=== PATIENT | female | born 1985 | race Caucasian/White ===

== ENCOUNTER → 2017-10-09 12:51 | Outpatient (CLI) | payer OTHER, SELFPAY ==
[2017-10-09 13:49] LABS: Absolute Lymphocyte Count 2.58 X10^3/ul (0.83-4.51); Absolute Neutrophil Count 5.7 X10^3/uL (2.0-7.7); Basophil# 0.07 X10^3/uL; Basophil% 0.8 % (0-1); Eosinophil# 0.26 X10^3/uL; Eosinophils% 2.8 % (0-5); Hematocrit 37.9 % (37-47); Lymphocyte # 2.58 X10^3/ul (4.0); Lymphocyte % 27.9 % (19-41); Mean Corp Hgb Conc 34.3 g/gl (32-36); Mean Corpuscular Hgb 30.7 pg (27.0-32.0); Mean Corpuscular Volume 89.6 fL (81-99); Mean Platelet Vol. 10.9 fl (6.2-12.0); Monocyte# 0.64 X10^3/uL; Monocyte% 6.9 % (0-10); Neutrophil # 5.67 X10^3/uL (2.7-7.7); Neutrophil % 61.2 % (47-70); Platelet Count 243 K/mm3 (150-450); RBC Distribution Width CV 12.8 % (11.6-14.6); RBC Distribution Width SD 41.2 fl (35.1-43.9); Red Blood Count 4.23 M/mm3 (4.2-5.4); White Blood Count 9.3 K/mm3 (4.4-11.0)
[2017-10-09 13:53] LABS: POSITIVE COUNT NO; POSITIVE DIFFERENTIAL NO; POSITIVE MORPHOLOGY NO
[2017-10-09 14:11] LABS: Hemoglobin A1c 7.9 % (4.2-6.3)
[2017-10-09 14:23] LABS: ALB/GLOB Ratio 0.7 RATIO (0.9-2.4); AST(SGOT) 21 U/L (15-37); Alanine Aminotransfer ALT/SGPT 35 U/L (12-78); Albumin, Serum 3.4 g/dL (3.4-5.0); Alkaline Phosphatase 51 U/L (45-117); Anion Gap 8 (5-15); BUN 13 mg/dL (7-18); BUN/Creat Ratio 14.1 RATIO (10-20); Calcium,Total 8.6 mg/dL (8.5-10.1); Chloride 100 mmol/L (98-107); Cholesterol 151 mg/dL (200); Creatinine, Serum 0.92 mg/dL (0.55-1.02); EST Glomerular Filtration Rate 74 mL/min (>60); Est Glom Filt Rate - Afr Amer 90 mL/min (>60); Free T3 2.2 pg/mL (2.18-3.98); Globulin 4.6 g/dL (2.2-4.2); Glucose 255 mg/dL (70-110); High Density Lipoprotein 31 mg/dL; Potassium 4.4 mmol/L (3.5-5.1); Sodium Level 134 mmol/L (136-145); T4 Free Direct 0.99 ng/dL (0.76-1.46); Thyroid Stim Hormone (TSH) 3.03 uIU/mL (0.358-3.74); Triglycerides 405 mg/dL
== END ==
PROVIDERS: Family Provider Internal Medicine; PCP Internal Medicine; Visit Provider Internal Medicine
DX: E11.65 Type 2 diabetes mellitus with hyperglycemia (principal); E03.9 Hypothyroidism, unspecified
CPT/HCPCS: 36415; 80053; 80061; 83036; 84439; 84443; 84481; 85025

== ENCOUNTER 2018-05-09 21:35 | Emergency (ER) | payer OTHER, SELFPAY ==
[2018-05-09 21:36] VITALS: BP 172/76; PULSE 88; RESP 15; TEMP 36.8; O2SAT 99; BMI 35.4
[2018-05-09 21:41] VITALS: BP 172/76; PULSE 82; RESP 18; O2SAT 97
--- NOTE | 2018-05-09 21:45 | ED.VISSUMM ---
- ER Visit Summary Date of Service: 05/09/18 Chief Complaint: Chest pain History of Present Illness: The patient is a 32 F waxing waning chest pain since yesterday evening. Pain left side moved to the right. Noted pain bilaterally. Dyspnea. No nausea or vomiting. History of diabetes, hypertension, hypercholesterolemia. No tobacco history. History of bicuspid valve, along with thoracic aneurysm, this was repaired in 2006. Additional valve repair in 2012. She just takes aspirin. No history of stress test or heart cath in the past. No similar symptoms. No recent travel, surgeries, or immobilizations. No history of PE or DVT. States pain currently resolved. Take baby aspirin today. Physical Examination: General: Alert and oriented ?3, no acute distress HEENT: Normocephalic, atraumatic. Moist mucosa membranes Neck: supple, nontender. Cardiovascular: Regular rate and rhythm, no murmurs. Midline chest scar Respiratory: Normal breath sounds, symmetric, no distress Abdomen: Soft, nontender, nondistended Extremities: Nontender, no edema, pulses intact ?4 Neuro: no focal neurological deficits. Test Results: EKG: Sinus rate of 82, nonspecific ST depression in 1 and aVL, T-wave inversion in aVL. Troponin negative. Baseline labs negative. Chest x-ray negative. Emergency Department Course and Treatment: Patient treated with aspirin. EKG noted nonspecific ST depression, extreme lateral leads, less than 0.5 mm. Symptom-free on my evaluation. Workup negative troponin. Reevaluation complains of pain when she moves her arm right lateral sternal region. She states she was lifting her child 2 days prior before symptoms. Pain with palpation. This is reproducible. Discussed with patient does have risk factors, heart scores a 2. FAREED is a 1. However has a negative troponin with over 24 hours of symptoms. Discussed with patient less likely cardiac in nature. With exam concerns for costochondritis. Patient no contraindications to NSAIDs. Discussed continuing this and monitoring symptoms. Discussed with patient signs and symptoms to return. Patient understands and agrees with plan. Treatment Plan: [] Disposition: Discharge Impression: Acute costochondritis This note was generated with Familinkation software. It may contain incorrect words, spelling, and punctuation that were not noted in review of the chart prior to signing ED Disposition - Plan for ED Patient: Disposition: Home or Assisted Living Chief Complaint: Chest Pain Diagnosis: Costochondritis Instructions: ED Chest Pain Costochondritis Referrals: Ilda Lozoya DO [Primary Care Provider] - 3-5 Days
[2018-05-09 21:52] VITALS: O2SAT 95
[2018-05-09] MEDS: Aspirin 81 MG TAB.CHEW 162 MG PO (21:53)
[2018-05-09 21:58] LABS: Absolute Lymphocyte Count 2.41 X10^3/ul (0.83-4.51); Absolute Neutrophil Count 5.2 X10^3/uL (2.0-7.7); Basophil# 0.02 X10^3/uL; Basophil% 0.2 % (0-1); Eosinophil# 0.25 X10^3/uL; Hematocrit 39.5 % (37-47); Hemoglobin 13.7 g/dl (12.0-15.0); Lymphocyte # 2.41 X10^3/ul (4.0); Lymphocyte % 28.5 % (19-41); Mean Corp Hgb Conc 34.7 g/gl (32-36); Mean Corpuscular Hgb 31.8 pg (27.0-32.0); Mean Corpuscular Volume 91.6 fL (81-99); Mean Platelet Vol. 11.5 fl (6.2-12.0); Monocyte# 0.58 X10^3/uL; Monocyte% 6.9 % (0-10); Neutrophil # 5.16 X10^3/uL (2.7-7.7); Platelet Count 233 K/mm3 (150-450); RBC Distribution Width CV 12.6 % (11.6-14.6); RBC Distribution Width SD 41.9 fl (35.1-43.9); Red Blood Count 4.31 M/mm3 (4.2-5.4); White Blood Count 8.5 K/mm3 (4.4-11.0)
[2018-05-09 21:59] LABS: POSITIVE COUNT NO; POSITIVE DIFFERENTIAL NO; POSITIVE MORPHOLOGY NO
[2018-05-09 22:07] LABS: Anion Gap 13 (5-15); BUN 15 mg/dL (7-18); BUN/Creat Ratio 14.3 RATIO (10-20); Calcium,Total 9.4 mg/dL (8.5-10.1); Chloride 96 mmol/L (98-107); Creatinine, Serum 1.05 mg/dL (0.55-1.02); EST Glomerular Filtration Rate 64 mL/min (>60); Est Glom Filt Rate - Afr Amer 77 mL/min (>60); Estimated Creatinine Clearance 74.11 ml/min; Glucose 441 mg/dL (74-106); Potassium 4.2 mmol/L (3.5-5.1); Sodium Level 136 mmol/L (136-145)
[2018-05-09 22:40] VITALS: BP 134/88; PULSE 75; RESP 18; O2SAT 97
[2018-05-09 22:45] VITALS: BP 134/88; PULSE 87; RESP 16; O2SAT 98
== END 2018-05-09 22:46 | disposition home or self-care (01) ==
PROVIDERS: Emergency Provider Emergency Medicine; Family Provider Internal Medicine; PCP Internal Medicine
DX: M94.0 Chondrocostal junction syndrome [Tietze] (principal); E11.9 Type 2 diabetes mellitus without complications; I10 Essential (primary) hypertension; E78.00 Pure hypercholesterolemia, unspecified; Q23.1 Congenital insufficiency of aortic valve; Z79.84 Long term (current) use of oral hypoglycemic drugs; Z79.82 Long term (current) use of aspirin; Z79.899 Other long term (current) drug therapy
CPT/HCPCS: 71045; 80048; 84484; 85025; 93005; 99284; A4216

== ENCOUNTER 2018-05-20 08:30 | Outpatient (RCR) | payer OTHER, SELFPAY ==
--- NOTE | 2018-05-20 09:16 | HP.PTEVAL ---
Patient's Visit Information LISA GUTIERREZ is a 32 year old F referred to Physical Therapy by Ilda Lozoya with a diagnosis of L pec strain. Date of Evaluation: 05/20/18 Physical Therapist: Salvador Alexander, PT, - Visit Plan Frequency: 1x/Week Duration: 1 Week Plan: Refer pt to Dr. Maciel, Chiropractor, for evaluation. Discharge at this time - Subjective Subjective: Pt reports she has had anterior chest wall pain intermittently since december. 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 Pt reports the pain would come and go, but for the past 2 weeks her pain is 90% worse than ever before. Pt reports moving her arm in different directions can provoke bad pain. Pt reports open heart surgery 2013 for the second time secondary to bad valves. Pt reports she feels a knob on her L chest wall that is very sore. No difficulty with breathing secondary to pain. Diff with house duties secondary to pain, and Pt has not worked for the past 2 weeks. Pt is going to try to RTW Friday. No sleep diff secondary to pain. 1/10 pain at rest, 5/10 at worst - Pain L anterior chest wall Pain Intensity (Out of 10): 1 Pain Intensity Range: 5 - Objective Neuro: B UE sensation is WNL to light touch. B bicepital relfex= 2/3. Palpation: Sig lump surrounding sternum near T5 rib, most likely a rib out of place. MMT: B UE's are 5/5 throughout. Special testing: Pos sternal compression near T5 - Goals Goal 1:: N/A - Rehabilitation Potential Physical Therapy Diagnosis: Pt has L anterior chest wall pain most likely due to having a rib out of place Rehabilitation Potential: Good - Anticipated Interventions Patient/Client Instruction: Educate patient on: Condition, Plan of Care For the Purpose of:: To improve self management Thank you for the opportunity to evaluate your patient. For Medicare and Medicare HMO plans, please review the plan of care and approve it. It will need to be FAXED BACK to us at [phone] for Medicare purposes. Please let me know if there are questions or concerns regarding this plan of care. Physician Signature: Date:
== END 2018-05-20 19:00 | disposition home or self-care (01) ==
LOC: PT 08:30
PROVIDERS: Family Provider Internal Medicine; PCP Internal Medicine; Referring Provider Internal Medicine; Visit Provider Internal Medicine
DX: S29.011D Strain of muscle and tendon of front wall of thorax, subsequent encounter (principal); R07.89 Other chest pain
CPT/HCPCS: 97161

== ENCOUNTER → 2018-05-27 12:41 | Outpatient (CLI) | payer OTHER, SELFPAY ==
[2018-05-27 15:50] LABS: Hemoglobin A1c 9.3 % (4.2-6.3)
== END ==
PROVIDERS: Family Provider Internal Medicine; PCP Internal Medicine; Visit Provider Internal Medicine
DX: E11.65 Type 2 diabetes mellitus with hyperglycemia (principal); E78.00 Pure hypercholesterolemia, unspecified
CPT/HCPCS: 36415; 83036

== ENCOUNTER → 2018-10-02 12:54 | Outpatient (CLI) | payer OTHER, SELFPAY ==
[2018-09-23 13:58] VITALS: BMI 30.2
--- NOTE | 2018-10-02 12:56 | US_ITS ---
STUDY: THYROID ULTRASOUND REASON FOR EXAM: Female, 32 years old. Thyroid nodule follow-up TECHNIQUE: Ultrasound evaluation of the thyroid was performed with real-time and static petit-scale imaging. COMPARISON: June 25, 2017 FINDINGS: RIGHT LOBE: The right lobe of the thyroid gland measures 4.0 x 1.4 x 1.6 cm. There is a heterogeneous echotexture. There are no demonstrated solid, cystic or complex lesions. LEFT LOBE: The left lobe of the thyroid gland measures 4.2 x 1.6 x 1.9 cm. There is an stable solid appearing upper pole nodule measuring 1.2 x 1.0 x 1.5 cm. There is a stable solid-appearing lower pole nodule measuring 3.0 x 3.0 x 4.0 mm. ISTHMUS: The isthmus measures 4 mm . The regional lymph nodes are normal. US/Thyroid IMPRESSION: Stable thyroid glands. Inhomogeneity. Stable solid appearing nodules left thyroid. Electronically Signed: Theresa Wright MD at 15:13 EST Tel , Service support ,
--- OUTSIDE RECORDS SUMMARY | 2018-12-07 02:52 | XMS RPT_ITS | Continuity of Care Document ---
:1985 Author Organization [facility] Address [facility] [address] Phone Care Team Providers Name Role Phone Ilda Lozoya DO Unavailable Jessica CHEN, Izaiah Yeager Unavailable Arvin Burgess Unavailable Tammi Machado Unavailable Mookie El OD Unavailable [facility], [facility] Unavailable Sangeeta CHEN, Jasen Arguello Unavailable VERO Maradiaga Unavailable Unavailable Unavailable Unavailable Problems Name Dates Details Annual physical exam (Z00.00, V70.0) Status: Active 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 Bolton at [facility] but follow with Dr. Arvin Burgess at [facility] Status: Active BMI 33.0-33.9,adult (Z68.33, V85.33) Status: Active BMI 34.0-34.9,adult (Z68.34, V85.34) Status: Active BMI 34.0-34.9,adult (Z68.34, V85.34) Status: Active Body mass index 35.0-35.9, adult (Z68.35, V85.35) Status: Active Chest wall pain (R07.89, 786.52) Status: Active Costochondritis (M94.0, 733.6) Comments: nsaid prn -- Status: Active Deliveries (Parity) Comments: Term, 3 Status: Active Diabetes mellitus type 2, uncontrolled (Renamed from Uncontrolled type 2 diabetes mellitus) (E11.65, 250.02) Comments: pt will tighten up diet and exervise and wt loss -- resume victoza ( she was off of it for awhile ) and see how next [facility] is Status: Active Diabetes mellitus type II, controlled, with no complications (E11.9, 250.00) Comments: will check labs to assure not NICK think with PCOS and glucose intolerant. not tolerate glucophage. on victoza. hga1c good FBS up some weight not loosign willincrease doseislet cell antibody negative . Status: Active Elevated serum globulin level (R77.1, 790.99) Status: Active Encounter for pre-employment examination (Z02.1, V70.5) Comments: filled out form Status: Active Eye exam, routine (Z01.00, V72.0) Status: Active Goiter (E04.9, 240.9) Status: Active Hypercholesteremia (E78.00, 272.0) Comments: pt wsnt fasting adn doing diet and exefcise chg so will roxane before nezxt visit Status: Active Hypothyroidism (E03.9, 244.9) Status: Active Muscle strain of chest wall, initial encounter (S29.011A, 848.8) Status: Active Nonsmoker (Z78.9, V49.89) Status: Active Nutritional counseling (Z71.3, V65.3) Status: Active Obesity, unspecified (E66.9, 278.00) Comments: start victoza help increase. talk about about clean eating. 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 Physical exam (Z00.00, V70.9) Status: Active Physical exam (Z00.00, V70.9) Status: Active Pneumococcal vaccination given (Z23, V06.6) Status: Active Polycystic ovaries (E28.2, 256.4) Status: Active Pregnancies () Comments: 3 Status: Active Rib pain on left side (R07.81, 786.50) Status: Active Serous conjunctivitis, unspecified laterality (H10.239, 372.01) Status: Active Thyroid nodule (E04.1, 241.0) Comments: stopped victoza but now pt wanting to go bak on -- no family h/o meduallary or any thyriod cancers and her bx was neg bx jun 2017 and neg by jluis so do yearly us Status: Active Upper respiratory infection (J06.9, 465.9) Status: Active Yeast vaginitis (B37.3, 112.1) Status: Active Medications Name Dates Details ASPIRIN LOW DOSE, 81MG (Oral Tablet) 1 QD for 0 days Refills: 0 Ordered:05-Jun-2009 Helio Butt Glimepiride 4 MG Oral Tablet 1 (one) Tablet bid for 0 days Quantity: 60 {Tablet} Refills: 1 Ordered:05-Jun-2018 Silvestre Lozoya DO, DO, Kathleen Start : 05-Jun-2018 Active Hygroton 25 MG Oral Tablet daily (25 MG) Active Comments:Dr. Burgess rx-- generic JARDIANCE, 25 (3)MG (Oral Tablet) (Free Text) 1 (one) Tablet Tablet qd for 0 days Quantity: 30 {Tablet} Refills: 3 Ordered:29-May-2018 Cheyanne Maradiaga LPN Start : 29-May-2018 Active Meloxicam 15 MG Oral Tablet 1 (one) Tablet Tablet qam with food for 0 days Quantity: 30 {Tablet} Refills: 0 Ordered:14-May-2018 Cheyanne Maradiaga LPN Start : 14-May-2018 Active MetFORMIN HCl ER (OSM) 500 MG Oral Tablet Extended Release 24 Hour 2 (two) Tablet qd for 0 days Quantity: 180 {Tablet} Refills: 3 Ordered:14-Aug-2018 Silvestre Lozoya DO, DO, Kathleen Start : 14-Aug-2018 Active Comments:severe diarrhea na dpassing whole tabs in toliet-- will redcue to one tab and see if tolerate that OneTouch Ultra Blue In Vitro Strip 1 (one) Strip Strip tid for 30 days Quantity: 90 {Strip} Refills: 3 Ordered:14-May-2018 Cheyanne Maradiaga LPN Start : 14-Jan-2018 Active OneTouch UltraSoft Lancets Miscellaneous 1 (one) Misc Misc tid for 30 days Quantity: 90 {QS} Refills: 1 Ordered:14-May-2018 Cheyanne Maradiaga LPN Start : 14-Jan-2018 Active Pen [place] 5/16 31G X 8 MM Miscellaneous 1 (one) Misc Misc weekly for 90 days Quantity: 12 {QS} Refills: 3 Ordered:14-May-2018 Silvestre Lozoya DO, DO, Kathleen Start : 14-Jan-2018 Active Synthroid 100 MCG Oral Tablet 1 Tablet daily for 0 days Quantity: 90 {Tablet} Refills: 3 Ordered:14-Aug-2018 Silvestre Lozoya DO, DO, Kathleen Start : 14-Aug-2018 Active Toprol XL 100 MG Oral Tablet Extended Release 24 Hour 1 Tablet qd for 30 days Refills: 0 Ordered:10-Oct-2017 Silvestre Lozoya DO, DO, Kathleen Start : 10-Oct-2017 Active Victoza 18 MG/3ML Subcutaneous Solution Pen-injector 1.8 Soln Pen-inj SC qd for 0 days Quantity: 3 {Each} Refills: 3 Ordered:14-Aug-2018 Silvestre Lozoya DO, DO, Kathleen Start : 14-Aug-2018 Active Comments:with needleshave thyriod nodule that will get bx -- patholgy was negatrive ACIPHEX, 20MG (Oral Tablet Delayed Release) 1 (one) Tablet DR Daily for 0 days Quantity: 20 {Tablet_DR} Refills: 0 Ordered:13-Apr-2007 JEFFREY Butt Start : 13-Apr-2007 End : 05-Jun-2009 Inactive ATENOLOL, 25MG (Oral Tablet) 1/2 Daily for 0 days Refills: 0 Ordered:05-Jun-2009 JEFFREY Butt End : 05-Jun-2009 Inactive BIAXIN XL PAC, 500MG (Oral Tablet Extended Release 24 Hour) 2 (two) Tablet ER 24HR daily for 10 days Quantity: 20 {Tablet} Refills: 0 Ordered:10-Aug-2014 Aundrea Tanner CNP Start : 10-Aug-2014 End : 20-Aug-2014 Inactive CLINDAMYCIN HCL, 300MG (Oral Capsule) 2 (two) Capsule as needed 30 minutes before dental procedures for 0 days Quantity: 12 {Capsule} Refills: 0 Ordered:18-May-2013 Eva Drake Start : 14-May-2013 End : 18-May-2013 Inactive Comments:Medication taken as needed. Diflucan 150 MG Oral Tablet 1 (one) Tablet Tablet x1 repeat 4days for 0 days Quantity: 2 {Tablet} Refills: 1 Ordered:29-May-2018 Cheyanne Maradiaga LPN Start : 14-May-2018 End : 29-May-2018 Inactive FLUCONAZOLE, 150MG (Oral Tablet) uad Tablet one today and may repeat in 2 days if not gone for 0 days Quantity: 2 {Tablet} Refills: 0 Ordered:30-Mar-2015 JEFFREY Butt Start : 25-Aug-2014 End : 30-Mar-2015 Inactive GLUCOPHAGE XR, 500MG (Oral Tablet Extended Release 24 Hour) 1 (one) Tablet ER 24HR Tablet ER 24HR 2 daily for 0 days Quantity: 60 {Tablet} Refills: 6 Ordered:30-Mar-2015 Hortencia Suarez MD Start : 30-Mar-2015 End : 30-Mar-2015 Inactive Comments:diarrhea GLUCOPHAGE, 1000MG (Oral Tablet) 1 (one) Tablet QD for 90 days Refills: 3 Ordered:27-May-2014 JEFFREY Butt Start : 19-Oct-2012 End : 27-May-2014 Inactive LABETALOL HCL, 200MG (Oral Tablet) uad 1 in am 1/2 at HS for 0 days Refills: 0 Ordered:27-May-2014 JEFFREY Butt End : 27-May-2014 Inactive LEVSIN, 0.125MG (Oral Tablet) 1 (one) Tablet QID for 0 days Quantity: 10 {Tablet} Refills: 0 Ordered:13-Apr-2007 JEFFREY Butt Start : 13-Apr-2007 End : 05-Jun-2009 Inactive MEDROL (KIT), 4MG (Oral Tablet) 1 Tablet TAD for 0 days Refills: 0 Ordered:18-Dec-2011 Aylin Mcmanus LPN Start : 11-Dec-2011 End : 18-Dec-2011 Inactive Comments:Take 28mg to 4mg over 7 days METROCREAM, 0.75% (External Cream) 1 Cream bid for 0 days Quantity: 1 {Cream} Refills: 0 Ordered:10-Dec-2011 Aylin Mcmanus LPN Start : 21-Nov-2011 End : 10-Dec-2011 Inactive MYCELEX, 10MG (Mouth/Throat Rajani) 1 Rajani 5x daily for 10 days Quantity: 50 {Rajani} Refills: 0 Ordered:10-Dec-2011 Aylin Mcmanus LPN Start : 10-Dec-2011 End : 20-Dec-2011 Inactive NEXIUM, 40MG (Oral Capsule Delayed Release) 1 tab QD for 0 days Refills: 0 Ordered:05-Jun-2009 JEFRFEY Butt End : 05-Jun-2009 Inactive NuvaRing 0.12-0.015 MG/24HR Vaginal Ring 1 (one) Ring uad for 30 days Refills: 0 Ordered:20-Jun-2016 Cheyanne Maradiaga LPN Start : 03-Jun-2016 End : 20-Jun-2016 Inactive Ocuflox 0.3 % Ophthalmic Solution 1 (one) Solution Solution 1-2 gtts q 2-4 hr x 2 days then 1-2 gtt qid x5 for 0 days Quantity: 1 {Bottle} Refills: 0 Ordered:20-Jun-2016 Cheyanne Maradiaga LPN Start : 12-Sep-2015 End : 20-Jun-2016 Inactive PREDNISONE, 10MG (Oral Tablet) 1 (one) Tablet 2bid x 3 days, 1 bid x 3 days 1/2 bid x3 days for 0 days Quantity: 21 {Tablet} Refills: 0 Ordered:30-Mar-2015 JEFFREY Butt Start : 10-Aug-2014 End : 30-Mar-2015 Inactive Comments:with food PROAIR HFA, 108 (90 Base)MCG/ACT (Inhalation Aerosol Solution) 2 (two) Aerosol Soln tid for 0 days Quantity: 1 {Inhaler} Refills: 2 Ordered:30-Mar-2015 JEFFREY Butt Start : 10-Aug-2014 End : 30-Mar-2015 Inactive PROMETRIUM, 100MG (Oral Capsule) 1 Capsule daily for 10 day for 0 days Quantity: 10 {Capsule} Refills: 0 Ordered:10-Dec-2011 Aylin Mcmanus LPN Start : 25-Jul-2011 End : 10-Dec-2011 Inactive TESSALON PERLES, 100MG (Oral Capsule) 1 (one) Capsule tid for 0 days Quantity: 30 {Capsule} Refills: 0 Ordered:30-Mar-2015 JEFFREY Butt Start : 03-Aug-2014 End : 30-Mar-2015 Inactive TOPICORT LP, 0.05% (External Cream) 1 Cream bid for 0 days Quantity: 1 {Cream} Refills: 0 Ordered:21-Nov-2011 JEFFREY Butt Start : 26-Sep-2011 End : 21-Nov-2011 Inactive ZITHROMAX Z-KIT, 250MG (Oral Tablet) 1 Tablet TAD for 0 days Quantity: 1 {Package} Refills: 0 Ordered:26-Sep-2015 JEFFREY Butt Start : 12-Sep-2015 End : 26-Sep-2015 Inactive AMOXIL, 875MG (Oral Tablet) 1 (one) Tablet Twice daily for 0 days Quantity: 20 {Tablet} Refills: 0 Ordered:01-Mar-2010 Aylin Mcmanus LPN Start : 06-Feb-2010 End : 14-May-2013 Discontinued Comments:This order discontinued per [facility]. AUGMENTIN, 875-125MG (Oral Tablet) 1 Tablet BID for 0 days Quantity: 20 {Tablet} Refills: 0 Ordered:19-Sep-2006 Michelle Rick Start : 19-Sep-2006 End : 13-Apr-2007 Discontinued CHERATUSSIN AC, 100-10MG/5ML (Oral Solution) 1 (one) Teaspoon qhs prn for 0 days Quantity: 6 {Ounce} Refills: 0 Ordered:10-Aug-2014 Aylin Mcmanus LPN Start : 03-Aug-2014 End : 10-Aug-2014 Discontinued COLACE, 100MG (Oral Capsule) 1 QD PRN for 0 days Refills: 0 Ordered:13-Apr-2007 Michelle Rick End : 13-Apr-2007 Discontinued Januvia 100 MG Oral Tablet 1 (one) Tablet qd for 0 days Quantity: 30 {Tablet} Refills: 3 Ordered:29-May-2018 Silvestre Lozoya DO, DO, Kathleen Start : 29-May-2018 End : 29-May-2018 Discontinued LEVAQUIN, 500MG (Oral Tablet) 1 Tablet qd for 0 days Quantity: 10 {Tablet} Refills: 0 Ordered:07-May-2012 Lottie Morales Start : 07-May-2012 End : 07-May-2012 Discontinued LOTRISONE, 1-0.05% (External Cream) Cream BID for 0 days Quantity: 1 {Cream} Refills: 0 Ordered:04-Sep-2006 Mast JOSE GUADALUPERadha Start : 04-Sep-2006 End : 01-Dec-2006 Discontinued OMNICEF, 300MG (Oral Capsule) 1 Capsule BID for 0 days Quantity: 14 {Capsule} Refills: 0 Ordered:01-Dec-2006 Michelle Rick Start : 01-Dec-2006 End : 13-Apr-2007 Discontinued Ozempic 0.25 or 0.5 MG/DOSE Subcutaneous Solution Pen-injector tad Milligram qweek for 0 days Quantity: 1 {Box} Refills: 1 Ordered:29-May-2018 Silvestre Lozoya DO, DO, Kathleen Start : 29-May-2018 End : 29-May-2018 Discontinued Comments:0.25mg qweek for 4weeks then 0.5 mg qweek until office visit PERCOCET, 5-325MG (Oral Tablet) 1-2 TABS Tablet Q 4-6 HRS PRN for 0 days Quantity: 60 {Tablet} Refills: 0 Ordered:01-Dec-2006 Michelle Rick Start : 01-Dec-2006 End : 13-Apr-2007 Discontinued PREVACID, 30MG (Oral Capsule Delayed Release) Capsule DR for 0 days Refills: 0 Ordered:13-Jun-2006 Michelle Rick Start : 13-Jun-2006 End : 13-Apr-2007 Discontinued PRILOSEC, 20MG (Oral Capsule Delayed Release) 1 (one) Capsule DR Daily for 0 days Quantity: 30 {Capsule_DR} Refills: 3 Ordered:10-Feb-2007 Michelle Rikc Start : 10-Feb-2007 End : 13-Apr-2007 Discontinued Allergies and Adverse Reactions Name Dates Details Adhesive Tape (Allergy) Status: Active Rocephin *CEPHALOSPORINS* (Allergy) Status: Active Comments: Rash Sulfa Drugs (Allergy) Status: Active Past Medical History Name Dates Details Abdominal pain, acute, right upper quadrant (R10.11, 789.01) Comments: Gallbladder removed and pain remains the same. Atypical presentation - refer to GI for further work up - scope? CT scan? Will try Levsin and Aciphex while waiting for GI referral. Status: Resolved as of 01-Feb-2009 Abnormal blood chemistry (R79.9, 790.6) Status: Inactive as of 30-Mar-2015 Abnormal cardiac function test (R94.30, 794.30) Comments: echo, pt will see Dr. Arvin Burgess at [facility] on 12-25 will take echo Status: Inactive as of 12-Jun-2015 Acute sinusitis, unspecified (J01.90, 461.9) Status: Resolved as of 01-Feb-2009 Acute tonsillitis (J03.90, 463) Comments: left tonsil ? abcess with drainage on amoxicillin from [facility] x 3days, then on levoquin x 1 dose still symptomatic fever, CT showing no tonsilar abcess, and enlarged tonsil, and epiglottis,sent to [place] , she will get tonsilectomy in 4 weekshad rapid strep at [facility] neg put on amoxi but worsening changed to levoquin, Status: Inactive as of 07-May-2012 AMENORRHOEA, NOS (626.0) Comments: think PCOS, had in past. multiple preg tests negative. will try progesterone. to stimulate. Status: Inactive as of 30-Mar-2015 BRONCHITIS, NOT SPECIFIED ACUTE OR CHRONIC (490.) (J40, 490) Status: Inactive as of 30-Mar-2015 Candidiasis, mouth (B37.0, 112.0) Comments: observe for now Status: Inactive as of 27-May-2014 Cellulitis and abscess of other specified site (L03.818, 682.8) Comments: questioning sternal incision site- treating aggressive to prevent further complications. Cultured area that is seeping. Status: Resolved as of 01-Feb-2009 Chest pain (R07.9, 786.59) Status: Inactive as of 27-May-2014 Cholecystectomy (Gall Bladder Removal) Comments: 02/2007 Status: Inactive as of 01-Jun-2010 Constipation (K59.00, 564.00) Comments: OTC Colace and senna. If no improvement call. Status: Resolved as of 01-Feb-2009 Cough (R05, 786.2) Comments: 4days Status: Inactive as of 30-Mar-2015 CRP elevated (R79.82, 790.95) Comments: better then after tonsilits Status: Inactive as of 12-Jun-2015 Dehydration (E86.0, 276.51) Status: Inactive as of 27-May-2014 Epigastric pain (R10.13, 789.06) Comments: treat gastritis with prevacid Status: Resolved as of 01-Feb-2009 Gallstones (K80.20, 574.20) Comments: stable Status: Inactive as of 01-Jun-2010 GERD (gastroesophageal reflux disease) (K21.9, 530.81) Comments: stable Status: Inactive as of 01-Jun-2010 Glucose intolerance (no malabsorption) (E74.39, 271.3) Comments: not gone back on metformin since had baby and sugars backup raching DM range so get back on metformin. Status: Inactive as of 20-Jun-2016 Low back pain without sciatica, unspecified back pain laterality (724.2) Comments: upper really pleuritic ? pleurisy. consider PE. ? dislaced rib. willcheck stat ddimer if normal nsaids watch if not better next week check chest xray. consider pneumothorax but no sob. Status: Inactive as of 12-Jun-2015 Pharyngitis, acute (J02.9, 462) Comments: ? mono Status: Inactive as of 27-May-2014 Polycystic Ovarian Disease Status: Inactive as of 01-Jun-2010 Positive test (V72.42) Status: Inactive as of 27-May-2014 , abdominal, with intrauterine (O00.01, 633.01) Status: Inactive as of 27-May-2014 Rash (R21, 782.1) 26-Sep-2011 Comments: saw rhem no lupus. scharmbergs on braun. face acne is roceasa per derm on metrogel. not use oral atb until not going to get Status: Inactive as of 27-May-2014 Sinus drainage (J34.89, 478.19) Status: Inactive as of 30-Mar-2015 Unspecified Diagnosis Status: Inactive as of 30-Mar-2015 Vaccine for njljocbiqa-ucxovql-jqtlvlkdo with poliomyelitis (Z23, V06.3) Status: Inactive as of 27-May-2014 Wheezing (R06.2, 786.07) Status: Inactive as of 30-Mar-2015 Yeast infection (B37.9, 112.9) Status: Inactive as of 30-Mar-2015 Procedures Procedure Dates Details Tonsilectomy Completed Comments: Date: 01/2012. No post-op complications. Date Value Details 13-Jul-2018 Endocrinology Visit Report Result: Comments: See Note; NOTES: [facility] [address] [place] [address] OFFICE VISIT Date of Service: 07/09/18 MR#: [id number] Acct: [id number] Name: KIMBERLY NAPIER Rep #: [id number] : 1985 Provider: Tammi Machado NP Age/Sex: 32/F Location: [facility] [place] Status: Signed HPI History of present illness Kimberly Reis is a 32 year old female who p resents for consult of diabetes type 2. Diagnosed in 2013. Currently on jardiance, victoza and metformin which she takes as prescribed. Does not routinely monitor BG. Is overwhelmed by the diabetes and all the issues associated with it. Pt denies difficulty with injections or self monitoring of BG. Denies any signs of infection or irritation at site of injections. Reports taking insulin as directed A t time of visit: -Pt denies symptoms of hypertensive emergency (CP,SOB,GUAN, or blurred vision) and hypotension(dizziness or lightheadedness) -Pt denies symptoms of hypoglycemia ( sweaty, confusion, anxie ty, tremor, hunger, palpitations) and hyperglycemia ( polydipsia, polyuria) -Pt denies potential medication adverse effect. 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 Type: type 2 Glucose cont rol symptoms: Denies daytime hypoglycemia, hypoglycemic with activity, nocturnal hypoglycemia or confusion at night Weight and fatigue symptoms: Denies snoring Cardiopulmonary symptoms: Denies chest claude n at rest, dyspnea on exertion, lightheadedness or myalgias GI symptoms: Denies constipation, diarrhea, nausea/dyspepsia or vomiting Skin and extremity symptoms: Denies tingling/numbness/burning or poor ly healing wound Other symptoms: Denies blurry vision or change in vision Pertinent visit history: Denies recent visit to ER, recent hospital admission or recent 911 calls Self monitoring: No Diabetes e ducation in past year: No Sick day education - understands ketone testing: Yes Physical activity: regular Exam Const General: comfortable, in distress Nutritional Appearance: well nourished Orientatio n: oriented x3 HENCA Head: normal to inspection, atraumatic Ears: hearing grossly normal bilaterally Nose: external nose normal Face and sinus: normal facial exam Mouth: oral mucosae normal, moist mucou s membranes Teeth and gingiva: dentition normal Eyes General: appearance normal, both eyes and all related structures Eyelids: eyelids normal Conjunctivae: conjunctivae normal Sclera: sclerae normal Res p Effort AND Inspection: normal respiratory effort, able to speak in complete sentences, symmetric chest movement Auscultation: Bilateral: Clear to Auscultation Cardio Rate: regular rate Rhythm: regular rhythm Heart Sounds: S2 normal, S1 normal Skin General: no rashes or lesions noted Wounds: no wounds Hair: normal Neuro General: oriented x3, moves all extremities Cognition: normal cognition Speech: s peech normal Gait: normal gait Extrem General: normal to inspection, full ROM, normal capillary refill Psych Appearance: grossly normal Mental Status: mental status grossly normal Mood: congruent mood A ffect: normal affect Speech and Movement: speech and movement normal Attitude: cooperative Thought Process: normal Thought Content: normal Judgment: judgment good Intake Vital Signs07/09/18 Height 5 f t 7 in 07/09/18 Weight: 210 lb 8 oz 07/09/18 Body Mass Index (BMI) 32.9 07/09/18 Blood Pressure 130/94 H 07/09/18 Blood Pressure Location Lt popliteal 07/09/18 Blood Pressure Position Sitting Intake Vi sit Reasons: Diabetes Mellitus Type 2 Chief Complaint: Abap Developer Required: No Accompanied by: Self Allergies adhesive tape Allergy (Unknown, Verified 07/09/18 10:48) Unknown Sulfa (Sulfonamide Antib iotics) Allergy (Verified 07/06/17 01:12) Rash Medications Aspirin [Aspirin, Baby] 81 mg PO DAILY@0800 06/29/13 [History Confirmed 07/09/18] Levothyroxine [Synthroid] 100 mcg PO DAILY 06/29/13 [Histo ry Confirmed 07/09/18] Metoprolol Succinate [Toprol Xl] 100 mg PO DAILY 06/29/13 [History Confirmed 07/09/18] Ranitidine [Zantac] 150 mg PO DAILY 07/06/17 [History Confirmed 07/09/18] Chlorthalidone [Hy groton] 25 mg PO DAILY 05/09/18 [History Confirmed 07/09/18] empagliflozin 25 mg tablet 25 mg PO DAILY 07/09/18 [History Confirmed 07/09/18] liraglutide 0.6 mg/0.1 mL (18 mg/3 mL) subcutaneous pen injec tor 1.8 mg SC DAILY ml 07/09/18 [History Confirmed 07/09/18] metformin 1,000 mg tablet 1,000 mg PO DAILY 07/09/18 [History Confirmed 07/09/18] Nurse's Note: blood sugars : low : high : pt not checking PFSH Medical History Asthma (Acute) Breast lump (Acute) Chronic headaches (Acute) GERD (gastroesophageal reflux disease) (Acute) Gallstones (Acute) Goiter (Acute) H/O transfusion of whole blood (Acut e) H/O wisdom tooth extraction (Acute) Heart murmur (Acute) Hypothyroidism (Acute) Polycystic ovary (Acute) Type 2 diabetes mellitus (Acute) UTI (urinary tract infection) (Acute) Vision problem (Acute) heart catheterization (Acute) HTN (hypertension) (Chronic) Surgical History H/O aortic valve replacement (Acute) H/O aortic valvuloplasty (Acute) H/O: C- section (Acute) Hx of cholecystectomy (Acute) Hx of tonsillectomy (Acute) S/P aneurysm repair (Acute) Family History Grandmother Asthma Hypertension Grandfather Asthma Arthritis Cancer Diabetes Aunt Breast cancer Autoimmune disease Uncle Cancer M other Diabetes Thyroid disorder Father Diabetes Sister Autoimmune disease Social History Smoking Status: Never smoker second hand exposure: No alcohol intake: never substance use type: does not use ROS Const Constitutional: No anorexia, body ache, chills, fatigue, fever(s), frequent falls, decreased energy, malaise, night sweats, weakness, weight change, sleep problems, abnormal sleep pattern, c hange in appetite, other, headache(s), snoring or excessive sweating Eyes Eyes: Positive for other (08/01); no blurry vision, change in vision, double vision, discharge, dry eyes, bulging eyes, floaters , visual disturbances, eye pain, light sensitivity, spots in vision or tunnel vision ENT ENT: Positive for nasal congestion; no abnormal hearing, ear pain, ear discharge, ear pressure, hearing loss, tin nitus, dizziness/vertigo, balance problems, nosebleed/epistaxis, nasal obstruction, nose pain, sinus pressure, sinus pain, nasal discharge, post nasal drip, headache(s), facial pain, dental pain, dry mo uth, bad breath, hoarseness, lip swelling, mouth lesions, mouth pain, sore throat, tongue swelling, throat swelling, other, difficulty swallowing or neck pain Resp Respiratory: No cough, change in phleg m color, chest congestion, excessive phlegm production, hemoptysis, pain on inspiration, shortness of breath, pain with cough, snoring, stridor, wheezing or other Cardio Cardiology: No chest pain at res t, chest pain with exertion, leg pain with exertion, excessive sweating, shortness of breath, dyspnea on exertion, generalized swelling, irregular heart rhythm, lightheadedness, orthopnea, radiating jaw , neck or arm pain, fast heart rate, slow heart rate, palpitations or other Gastro GI: No abdominal pain, belching, bloating, change in bowel habits, change in stool character, coffee ground emesis, con stipation, cramping, diarrhea, heartburn, difficulty swallowing, feeling full early, excessive flatus, incontinent of stools, Vomiting blood/hematemesis, blood in stool, loose stools, Black,tarry stools , nausea/dyspepsia, pain with swallowing, vomiting or other Genitourinary-Female: No difficulty urinating, burning urination, painful urination, urinary incontinence, urinary frequency, urinary urgen cy, urinary hesitancy, urinary retention, blood in urine, Frequent nighttime urination/ nocturia, post void dribbling, suprapubic fullness, side pain, sexual problems, genital lesions, genital itching, hot flashes, abnormal periods, abnormal vaginal bleeding, absent period, painful periods, light periods, heavy periods, difficulty getting , painful intercourse, pelvic pain, vaginal dryness, va ginal odor, Vaginal Itching or other Musc Musculoskeletal: Positive for other (rib/muscle pain); no abnormal walking, joint pain, back pain, deformity, joint swelling, limited range of motion, loss of h eight, muscle cramps, muscle weakness, decreased muscle mass, body aches, neck pain, numbness, radiating pain into limb, stiffness or tingling Skin Skin: No acne, hair loss, change in hair, nail changes , boil, change in skin color, dry skin, redness, excessive hair growth, yellowing of the skin, lesions, itching, rash, skin pain, skin ulcer, sores, skin swelling, wounds or other Breast Breast: No othe r Neuro Neurology: No frequent falls, weakness, visual disturbances, abnormal hearing, headache(s), abnormal walking, numbness or tingling Psych Psychiatric: No abnormal sleep pattern, No change in appe tite Endo Endocrine: No fatigue, other or excessive sweating Aller/Imm Allergy/Immunologic: No lip swelling, tongue swelling, throat swelling, wheezing or itchy eyes Assessment AND Plan Problems 1. Un controlled type 2 diabetes mellitus with hyperglycemia E11.65 Plan Reviewed medications with patient and use of each. Also discussed use of other medications based on findings of BG readings. We discus sed how we can use her BG readings to improve her overall control. Reviewed basic diabetes self care and also carb counting for dietary aprroach. Patient needs to begin with basic approach and avoid fee ling overwhelmed with this as she is working and has small children as well. Ask patient to begin checking one meal each day before the meal and 2 hours after while checking content of carbs eaten. Giv en immediate feedback she can make decisions based on this information moving forward. Discussed self care in other aspects regarding exercise, weight, foot care, and blood pressure. Plan Detail Ad ditional Comments 1. Please schedule follow up in 1 month 2. Lab work one week before appointment. 3. Discussed importance of regular exercise and recommend starting or continuing a regular exercise pro gram for good health. 4. The patient was encouraged to lose weight for good health 5. The importance of monitoring blood sugar regularly was reviewed. 6. The importance of monitoring the HBA1c level reg ularly was reviewed. 7. The importance of prper foot care and regularly checking feet to prevent sores and loss of limbs was reviewed. 8. The importance of keeping BP at or below 130/80 to prevent strok e, heart attacks, kidney failure, blindness was reviewed. Spent approximately 60 minutes with patient with over 50% of time spent in discussion and counseling regarding medication adjustment, symptoms and treatment of hypoglycemia, diet adherence, and checking BG before driving. Goals Decrease pain and spasm Barriers Previous heart surgery Coding Level of Care Code Off vis,new,level 3 Diagnoses Uncontrolled type 2 diabetes mellitus with hyperglycemia E11.65 Glycemic state: with hyperglycemia Depression Screen PHQ-2/9 PHQ-2 Over the last 2 weeks, how often have you been bothered by any of th e following problems? 1. Little interest or pleasure in doing things: not at all 2. Feeling down, depressed, or hopeless: not at all Total score: 0 If score is 2 or greater, continue Source: Alonso Byrd, Jinny Clark, Tl Evans and colleagues, with an educational kathia from [employer]. Scoring: Total Score Depression Severity Action 1-4 Minimal depression No action n eeded 5-9 Mild depression Repeat PHQ-9 at follow up 10-14 Moderate depression Make tx plan,consider counseling, fup, prescription 07/13/18 0758 <Electronically signed by Tammi Griffith> Date Tammi ACUÑA Cosigner Signature: Date (if applicable) CC: 06-Jul-2018 Chiropractic Report Result: Comments: See Note; NOTES: [email or web address] [address] [place] [address] OFFICE VISIT Date of Service: 07/01/18 MR#: [id number] Acct: [id number] Name: Rainer REIS Rep #: [id number] : 1985 Provider: Gillian Maciel D.C. Age/Sex: 32/F Location: [facility] [place] Status: Signed Intake Vital Signs07/01/18 Height 5 ft 7 in 07/01/18 Weight: 225 lb 07/01/18 Body Ma ss Index (BMI) 35.2 Intake Visit Reasons: L collar bone Chief Complaint: L sided throracic pain Is patient in pain?: Yes Allergies Sulfa (Sulfonamide Antibiotics) Allergy (Verified 07/06/17 01:12) Ra sh Medications Aspirin [Aspirin, Baby] 81 mg PO DAILY@0800 06/29/13 [History Confirmed 05/09/18] Levothyroxine [Synthroid] 100 mcg PO DAILY 06/29/13 [History Confirmed 05/09/18] Metoprolol Succinate [Toprol Xl] 100 mg PO DAILY 06/29/13 [History Confirmed 05/09/18] Metformin HCl [Glucophage] 1,000 mg PO DAILY 07/06/17 [History Confirmed 05/09/18] Ranitidine [Zantac] 150 mg PO DAILY 07/06/17 [History Confirmed 05/09/18] Chlorthalidone [Hygroton] 25 mg PO DAILY 05/09/18 [History Confirmed 05/09/18] Sitagliptin Phosphate [Januvia] 100 mg PO DAILY 05/09/18 [History Confirmed 05/09/18] PFSH Social H istory Smoking Status: Never smoker HPI L collar bone : Chief Complaint: L collar bone pain Visit Number: 8 Details: KIMBERLY REIS is a 32 year old F who presents with decreased L collar bone p ain. Kimberly states that her pain is 98% better, at times she does experience a dull ache in the collar bone area. Lifting, twisting, and raising the arm no longer causes increased pain. Kimberly denies any numbness, tingling, or radiculopathy. Location: L collar bone Duration: occasional Aggravating or associated factors: NA Relieving factors: chiro Pain Quality: aching, dull Exam Musc General: Yes n ormal posture, normal gait and joint tenderness (L sternocostal junx, T4,T5,T6) Thoracic/Lumbar Spine: thor and lumb spine abnorm to inspection (post surgical scarring at sternum), paraspinal tenderness (slightly improved), thoraco-lumbar spasm (slightly improved), thoraco-lumbar ROM normal Office Procedures Chiropractic Treatments Procedures Manipulation: 1-2 regions (T4,T5,T6) Assessment AND Kwadwo n 1. Segmental and somatic dysfunction of thoracic region M99.02 Orders Orders: 2. Thoracic neuritis M54.14 Orders Orders: Plan Detail Additional Comments Patient has improved ROM and decrease pain le vels. She has returned to work with no exacerbation of pain. Recommend transitioning to PRN due to positive improvement of her condition. Goals Decrease pain and spasm Barriers Previous heart surgery Follow Up PRN Coding Level of Care Code No Charge Diagnoses Segmental and somatic dysfunction of thoracic region M99.02 Thoracic neuritis M54.14 Additional Codes Procedures - Manipulation: 1-2 regio ns (31383) 07/06/18 1019 <Electronically signed by Gillian Maciel D.C.> Date Gillian Maciel D.C. Cosigner Signature: Date (if applicable) CC: 18-Jun-2018 Chiropractic Report Result: Comments: See Note; NOTES: [email or web address] [address] [place] [address] OFFICE VISIT Date of Service: 06/18/18 MR#: [id number] Acct: [id number] Name: Rainer REIS Rep #: [id number] : 1985 Provider: Gillian Maciel D.C. Age/Sex: 32/F Location: [facility] [place] Status: Signed Intake Vital Signs06/18/18 Height 5 ft 7 in 06/18/18 Weight: 225 lb 06/18/18 Body Ma ss Index (BMI) 35.2 Intake Visit Reasons: L thoracic pain Is patient in pain?: Yes Allergies Sulfa (Sulfonamide Antibiotics) Allergy (Verified 07/06/17 01:12) Rash Medications Aspirin [Aspirin, Ba by] 81 mg PO DAILY@0800 06/29/13 [History Confirmed 05/09/18] Levothyroxine [Synthroid] 100 mcg PO DAILY 06/29/13 [History Confirmed 05/09/18] Metoprolol Succinate [Toprol Xl] 100 mg PO DAILY 06/29/13 [ History Confirmed 05/09/18] Metformin HCl [Glucophage] 1,000 mg PO DAILY 07/06/17 [History Confirmed 05/09/18] Ranitidine [Zantac] 150 mg PO DAILY 07/06/17 [History Confirmed 05/09/18] Chlorthalidone [H ygroton] 25 mg PO DAILY 05/09/18 [History Confirmed 05/09/18] Sitagliptin Phosphate [Januvia] 100 mg PO DAILY 05/09/18 [History Confirmed 05/09/18] PFSH Social History Smoking Status: Never smoker HPI L thoracic pain: Chief Complaint: L thoracic pain Visit Number: 7 Details: KIMBERLY REIS is a 32 year old F who presents with L sided collar bone pain. She states that after returning to work her pain did not increase, leaving her with a slight ache that bands across the L collar bone area. Today Kimberly rates her pain a 2/10 and describes it as a slight ache that comes and goes, she is abl e to clean her house, twist, and rotate her arm with no increased pain. At night the patient is still having trouble with soreness while rotating in bed, although she denies any numbness,tingling, or ra diculopathy. Location: L collar bone area Duration: intermittent Aggravating or associated factors: rotation in bed Relieving factors: chiro Pain Quality: aching, dull, cramping Exam Musc General: Yes normal posture, normal gait and joint tenderness (L sternocostal junx, T4,T5,T6) Thoracic/Lumbar Spine: thor and lumb spine abnorm to inspection (post surgical scarring at sternum), pain with thoraco-jemima mbar ROM with lateral flexion to the right, with rotation to the right and other, paraspinal tenderness (slightly improved) on the left, thoraco-lumbar ROM limited, thoraco-lumbar spasm (slightly improv ed) on the left Office Procedures Chiropractic Treatments Procedures Manipulation: 1-2 regions (L sternocostal junx, T4,T5,T6) Assessment AND Plan 1. Segmental and somatic dysfunction of thoracic re gion M99.02 Orders Orders: 2. Thoracic neuritis M54.14 Orders Orders: Plan Detail Goals Decrease pain and spasm Barriers Previous heart surgery Follow Up 2 Weeks Coding Level of Care Code No Charg e Diagnoses Segmental and somatic dysfunction of thoracic region M99.02 Thoracic neuritis M54.14 Additional Codes Procedures - Manipulation: 1-2 regions (63237) 06/18/18 1437 <Electronicall y signed by Gillian Maciel D.C.> Date Gillian Maciel D.C. Cosigner Signature: Date (if applicable) CC: 15-Jun-2018 Chiropractic Report Result: Comments: See Note; NOTES: [facility] [address] [place] [address] OFFICE VISIT Date of Service: 06/10/18 MR#: [id number] Acct: [id number] Name: DANIELANARainer Rep #: [id number] : 1985 Provider: Gillian Maciel D.C. Age/Sex: 32/F Location: [facility] [place] Status: Signed Intake Vital Signs06/10/18 Height 5 ft 7 in 06/10/18 Weight: 225 lb 06/10/18 Body Ma ss Index (BMI) 35.2 Intake Visit Reasons: rib pain Chief Complaint: L sided throracic pain Is patient in pain?: Yes Allergies Sulfa (Sulfonamide Antibiotics) Allergy (Verified 07/06/17 01:12) Rash Medications Aspirin [Aspirin, Baby] 81 mg PO DAILY@0800 06/29/13 [History Confirmed 05/09/18] Levothyroxine [Synthroid] 100 mcg PO DAILY 06/29/13 [History Confirmed 05/09/18] Metoprolol Succinate [Topr ol Xl] 100 mg PO DAILY 06/29/13 [History Confirmed 05/09/18] Metformin HCl [Glucophage] 1,000 mg PO DAILY 07/06/17 [History Confirmed 05/09/18] Ranitidine [Zantac] 150 mg PO DAILY 07/06/17 [History Conf irmed 05/09/18] Chlorthalidone [Hygroton] 25 mg PO DAILY 05/09/18 [History Confirmed 05/09/18] Sitagliptin Phosphate [Januvia] 100 mg PO DAILY 05/09/18 [History Confirmed 05/09/18] PFSH Social Histor y Smoking Status: Never smoker HPI rib pain : Chief Complaint: L sided thoracic pain Visit Number: 6 Details: KIMBERLY REIS is a 32 year old F who presents with decreased L sided rib pain. She states that her pain throughout the day is minimal to none, although she is still experiencing a nagging ache at times when rolling over in bed. Today Kimberly rates her pain a 2/10 and describes it as a dull ache that comes and goes. She was able to bend over and clean her home with no increased pain. She is returning to work next week and will follow up to monitor her condition after. Kimberly denies any numbness, tingling, or radiculopathy. Location: L sided thoracic pain Duration: intermittent Aggravating or associated factors: rolling over in bed Relieving factors: chiro Pain Quality: aching, du ll, cramping Exam Musc General: Yes normal posture, normal gait and joint tenderness (L sternocostal junx, T4,T5,T6) Thoracic/Lumbar Spine: thor and lumb spine abnorm to inspection (post surgical scarri ng at sternum), pain with thoraco-lumbar ROM, paraspinal tenderness (slightly improved), thoraco-lumbar ROM limited, thoraco-lumbar spasm (slightly improved) on the left greater than right (pectoralis, trap) Office Procedures Chiropractic Treatments Procedures Manipulation: 1-2 regions (T4,T5,T6) Assessment AND Plan 1. Segmental and somatic dysfunction of thoracic region M99.02 Orders Orders: 2. Thoracic neuritis M54.14 Orders Orders: Plan Detail Goals Decrease pain and spasm Barriers Previous heart surgery Follow Up 1 x week Coding Level of Care Code No Charge Diagnoses Segmental and alok atic dysfunction of thoracic region M99.02 Thoracic neuritis M54.14 Additional Codes Procedures - Manipulation: 1-2 regions (53598) 06/15/18 1037 <Electronically signed by Gillian Maciel D.C.&emmanuel henao;#[id number]; Date Gillian Maciel D.C. Cosigner Signature: Date (if applicable) CC: 04-Jun-2018 Chiropractic Report Result: Comments: See Note; NOTES: [email or web address] [address] [place] [address] OFFICE VISIT Date of Service: 06/04/18 MR#: [id number] Acct: [id number] Name: Rainer REIS Rep #: [id number] : 1985 Provider: Gillian Maciel D.C. Age/Sex: 32/F Location: [facility] [place] Status: Signed Intake Vital Signs06/04/18 Height 5 ft 7 in 06/04/18 Weight: 225 lb 06/04/18 Body Ma ss Index (BMI) 35.2 Intake Visit Reasons: thoracic pain Chief Complaint: L sided rib pain Is patient in pain?: Yes Allergies Sulfa (Sulfonamide Antibiotics) Allergy (Verified 07/06/17 01:12) Rash M edications Aspirin [Aspirin, Baby] 81 mg PO DAILY@0800 06/29/13 [History Confirmed 05/09/18] Levothyroxine [Synthroid] 100 mcg PO DAILY 06/29/13 [History Confirmed 05/09/18] Metoprolol Succinate [Topro l Xl] 100 mg PO DAILY 06/29/13 [History Confirmed 05/09/18] Metformin HCl [Glucophage] 1,000 mg PO DAILY 07/06/17 [History Confirmed 05/09/18] Ranitidine [Zantac] 150 mg PO DAILY 07/06/17 [History Confi rmed 05/09/18] Chlorthalidone [Hygroton] 25 mg PO DAILY 05/09/18 [History Confirmed 05/09/18] Sitagliptin Phosphate [Januvia] 100 mg PO DAILY 05/09/18 [History Confirmed 05/09/18] PFSH Social History Smoking Status: Never smoker HPI thoracic pain: Chief Complaint: L sided rib pain Visit Number: 5 Details: KIMBERLY REIS is a 32 year old F who presents with decreased rib pain. She states th at after her adjustment her pain became minimal to none. Today Kimberly rates her pain a 1/10 and states it is only a slight ache that comes and goes. She was able to sweep the floor, and mow the yard wi th no increased pain, at night she is still noticing a dull ache or cramp, although denies any numbness, tingling, or radiculopathy. Location: L sided rib pain Duration: intermittent Aggravating or ass ociated factors: laying flat Relieving factors: chiro Pain Quality: aching, dull, cramping Exam Musc General: Yes normal posture, normal gait and joint tenderness (L sternocostal junx, T4,T5,T6) Thoraci c/Lumbar Spine: thor and lumb spine abnorm to inspection (post surgical scarring at sternum), pain with thoraco-lumbar ROM with forward flexion, paraspinal tenderness (slightly improved) on the left gre ater than right (T4, T4, T6), thoraco-lumbar ROM limited with forward flexion, thoraco-lumbar spasm on the left greater than right (L iliocostalis) Office Procedures Chiropractic Treatments Procedures Manipulation: 3-4 regions (T4,T5,T6) Assessment AND Plan 1. Segmental and somatic dysfunction of thoracic region M99.02 Orders Orders: 2. Thoracic neuritis M54.14 Orders Orders: Plan Detail Goals D ecrease pain and spasm Barriers Previous heart surgery Follow Up 1 x week Coding Level of Care Code No Charge Diagnoses Segmental and somatic dysfunction of thoracic region M99.02 Thoracic neuritis M54.14 Additional Codes Procedures - Manipulation: 3-4 regions (87187) 06/04/18 1029 <Electronically signed by Gillian Maciel D.C.> Date Gillian Maciel D.C. Cosigner Signature: Date (if applicable) CC: 02-Jun-2018 Chiropractic Report Result: Comments: See Note; NOTES: [facility] [address] [place] [id number] OFFICE VISIT Date of Service: 06/01/18 MR#: [id number] Acct: [id number] Name: Rainer REIS Rep #: [id number] : 1985 Provider: Gillian Maciel D.C. Age/Sex: 32/F Location: [facility] [place] Status: Signed Intake Vital Signs06/01/18 Height 5 ft 7 in 06/01/18 Weight: 225 lb 06/01/18 Body Ma ss Index (BMI) 35.2 Intake Visit Reasons: thoracic pain Chief Complaint: L sided rib pain Is patient in pain?: Yes Allergies Sulfa (Sulfonamide Antibiotics) Allergy (Verified 07/06/17 01:12) Rash M edications Aspirin [Aspirin, Baby] 81 mg PO DAILY@0800 06/29/13 [History Confirmed 05/09/18] Levothyroxine [Synthroid] 100 mcg PO DAILY 06/29/13 [History Confirmed 05/09/18] Metoprolol Succinate [Topro l Xl] 100 mg PO DAILY 06/29/13 [History Confirmed 05/09/18] Metformin HCl [Glucophage] 1,000 mg PO DAILY 07/06/17 [History Confirmed 05/09/18] Ranitidine [Zantac] 150 mg PO DAILY 07/06/17 [History Confi rmed 05/09/18] Chlorthalidone [Hygroton] 25 mg PO DAILY 05/09/18 [History Confirmed 05/09/18] Sitagliptin Phosphate [Januvia] 100 mg PO DAILY 05/09/18 [History Confirmed 05/09/18] PFSH Social History Smoking Status: Never smoker HPI thoracic pain: Chief Complaint: L sided rib pain Visit Number: 4 Details: KIMBERLY REIS is a 32 year old F who presents with decreased L sided rib pain. She s tates that after her last treatment she was sore and tender after, although a day later the pain began to decrease. Kimberly is now able to rotate the arm, and lift with less pain. Today Kimberly rates he r pain a 3/10 and describes it as a deep ache, at times when lifting or pushing she does feel a catch with a sharp ache although it does subside. Kimberly denies any numbness, tingling, or radiculopathy. Location: L rib Duration: constant Aggravating or associated factors: pushing and lifting Relieving factors: chiro Pain Quality: aching, dull, cramping, sharp Exam Musc General: Yes normal posture, no rmal gait and joint tenderness (L sternocostal junx, T4,T5,T6) Thoracic/Lumbar Spine: thor and lumb spine abnorm to inspection (post surgical scarring at sternum), pain with thoraco-lumbar ROM with forw morenita flexion, paraspinal tenderness (slightly improved) on the left greater than right (T4, T4, T6), thoraco-lumbar ROM limited with forward flexion, thoraco- lumbar spasm on the left greater than right ( L iliocostalis) Office Procedures Chiropractic Treatments Procedures Manipulation: 1-2 regions (T4,T5,T6) Assessment AND Plan 1. Segmental and somatic dysfunction of thoracic region M99.02 Orders Or ders: 2. Thoracic neuritis M54.14 Orders Orders: Plan Detail Goals Decrease pain and spasm Barriers Previous heart surgery Follow Up 2 x week Coding Level of Care Code No Charge Diagnoses Segment al and somatic dysfunction of thoracic region M99.02 Thoracic neuritis M54.14 Additional Codes Procedures - Manipulation: 1-2 regions (88061) 06/02/18 0810 <Electronically signed by Gillian Vargas D.C.> Date Gillian Maciel D.C. Cosigner Signature: Date (if applicable) CC: 01-Jun-2018 Chiropractic Report Result: Comments: See Note; NOTES: [email or web address] [address] [place] [address] OFFICE VISIT Date of Service: 05/26/18 MR#: [id number] Acct: [id number] Name: Rainer REIS Rep #: [id number] : 1985 Provider: Gillian Maciel D.C. Age/Sex: 32/F Location: [facility] [place] Status: Signed Intake Vital Signs09/11/18 Height 5 ft 7 in 05/26/18 Weight: 225 lb 05/26/18 Body Ma ss Index (BMI) 35.2 Intake Visit Reasons: Rib pain Chief Complaint: L sided rib pain Is patient in pain?: Yes Allergies Sulfa (Sulfonamide Antibiotics) Allergy (Verified 07/06/17 01:12) Rash Medica tions Aspirin [Aspirin, Baby] 81 mg PO DAILY@0800 06/29/13 [History Confirmed 05/09/18] Levothyroxine [Synthroid] 100 mcg PO DAILY 06/29/13 [History Confirmed 05/09/18] Metoprolol Succinate [Toprol Xl] 100 mg PO DAILY 06/29/13 [History Confirmed 05/09/18] Metformin HCl [Glucophage] 1,000 mg PO DAILY 07/06/17 [History Confirmed 05/09/18] Ranitidine [Zantac] 150 mg PO DAILY 07/06/17 [History Confirmed 05/09/18] Chlorthalidone [Hygroton] 25 mg PO DAILY 05/09/18 [History Confirmed 05/09/18] Sitagliptin Phosphate [Januvia] 100 mg PO DAILY 05/09/18 [History Confirmed 05/09/18] PFS Social History Smok ing Status: Never smoker HPI Rib pain : Chief Complaint: L sided rib pain Visit Number: 1 Referral source: [employer] employee; [place] in [place] Details: KIMBERLY REIS is a 32 year old F who presents with L sided upper rib pain. 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 When the pain first began she rates it a 9/10, and describes it as a tight and sharp ache that began in the upper L rib and radiated into the axillary and arm pit area, although the pain has since subsided leaving her with a burning that comes and goes. Today Ping garza rates her pain a 4/10, and states it only comes on when lifting, rotation, or laying on her stomach. She denies any numbness, tingling, or radiculopathy. Onset: 05/12/18 Location: L upper rib pain D uration: intermittent Aggravating or associated factors: lifting, and twisting Pain Quality: aching, dull, burning Exam Musc General: Yes normal posture, normal gait and joint tenderness (L sternocostal junx, T4,T5,T6) Thoracic/Lumbar Spine: thor and lumb spine abnorm to inspection (post surgical scarring at sternum), pain with thoraco-lumbar ROM with forward flexion, paraspinal tenderness on the left greater than right (T4, T4, T6), thoraco-lumbar ROM limited with forward flexion, thoraco-lumbar spasm on the left greater than right (L iliocostalis) Neuro General: alert, awake, oriented x3, normal l ight touch, pain and propioception, no focal motor deficits Ortho Test CERVICAL THORACIC Kemps: Negative Schepelmanns pain: Left LUMBAR Office Procedures Chiropractic Treatments Procedures Manipulatio n: 1-2 regions (T5, T6, T7) Assessment AND Plan Problems 1. Thoracic neuritis M54.14 2. Segmental and somatic dysfunction of thoracic region M99.02 Plan Recommend acute care treatment plan. Orders O rders: Plan Detail Goals Decrease pain and spasm Barriers Previous heart surgery Follow Up 2x/wk/3wks Coding Level of Care Code Off vis,new,level 3 Diagnoses Thoracic neuritis M54.14 Segmental an d somatic dysfunction of thoracic region M99.02 Additional Codes Procedures - Manipulation: 1-2 regions ([id number]) 06/01/18 0825 <Electronically signed by Gillian Maciel D.C.> Date ____ Gillian Maciel D.C. Cosigner Signature: Date (if applicable) CC: 28-May-2018 Chiropractic Report Result: Comments: See Note; NOTES: [facility] [address] [place] [id number] OFFICE VISIT Date of Service: 05/28/18 MR#: [id number] Acct: [id number] Name: Rainer REIS Rep #: [id number] : 1985 Provider: Gillian Maciel D.C. Age/Sex: 32/F Location: [facility] [place] Status: Signed Intake Vital Signs05/28/18 Height 5 ft 7 in 05/28/18 Weight: 225 lb 05/28/18 Body Ma ss Index (BMI) 35.2 Intake Visit Reasons: rib pain Chief Complaint: L sided rib pain Is patient in pain?: Yes Allergies Sulfa (Sulfonamide Antibiotics) Allergy (Verified 07/06/17 01:12) Rash Medica tions Aspirin [Aspirin, Baby] 81 mg PO DAILY@0800 06/29/13 [History Confirmed 05/09/18] Levothyroxine [Synthroid] 100 mcg PO DAILY 06/29/13 [History Confirmed 05/09/18] Metoprolol Succinate [Toprol Xl] 100 mg PO DAILY 06/29/13 [History Confirmed 05/09/18] Metformin HCl [Glucophage] 1,000 mg PO DAILY 07/06/17 [History Confirmed 05/09/18] Ranitidine [Zantac] 150 mg PO DAILY 07/06/17 [History Confirmed 05/09/18] Chlorthalidone [Hygroton] 25 mg PO DAILY 05/09/18 [History Confirmed 05/09/18] Sitagliptin Phosphate [Januvia] 100 mg PO DAILY 05/09/18 [History Confirmed 05/09/18] PFSH Social History Smok ing Status: Never smoker HPI rib pain: Chief Complaint: L sided rib pain Visit Number: 2 Details: KIMBERLY REIS is a 32 year old F who presents with L sided frontal rib pain. She states that a fter her treatment her pain did not decrease, but is wrapping into the L armpit and axillary area. Today Kimberly rates her pain a 4/10 and describes it as a tight and deep ache that is constant, at time s with a sudden movement it could be sharp and throbbing. Kimberly denies any numbness, tingling, or radiculopathy. Location: L sided rib/thoracic Duration: constant Aggravating or associated factors: l eaning, rotation and lifting Relieving factors: none Pain Quality: aching, dull, cramping, sharp Exam Musc General: Yes normal posture, normal gait and joint tenderness (L sternocostal junx, T4,T5,T6) T horacic/Lumbar Spine: thor and lumb spine abnorm to inspection (post surgical scarring at sternum), pain with thoraco-lumbar ROM with forward flexion, paraspinal tenderness on the left greater than righ t (T4, T4, T6), thoraco-lumbar ROM limited with forward flexion, thoraco-lumbar spasm on the left greater than right (L iliocostalis) Office Procedures Chiropractic Treatments Procedures Manipulation: 1-2 regions (T4,T5,T6) Assessment AND Plan 1. Segmental and somatic dysfunction of thoracic region M99.02 Orders Orders: 2. Thoracic neuritis M54.14 Orders Orders: Plan Detail Additional Comments R eviewed at home door stretches Goals Decrease pain and spasm Barriers Previous heart surgery Follow Up 2 x week Coding Level of Care Code No Charge Diagnoses Segmental and somatic dysfunction of thoracic region M99.02 Thoracic neuritis M54.14 Additional Codes Procedures - Manipulation: 1-2 regions (26182) 05/28/18 1413 <Electronically signed by Gillian Maciel D.C.&# 62; Date Gillain Braunigner Signature: Date (if applicable) CC: 20-May-2018 Inital Evaluation (1) - PT Result: Comments: See Note; NOTES: [facility] Physical Therapy Health[address] [place] [address] Fax REHABILITATION SERVICES INITIAL EVALUATION MR#: [id number] Acct: [id number] Name: ARLETH REISPERCY Watkins Rep #: [id number] : 1985 32 From: Salvador Alexander PT, ATC Referring DrLizeth: Ilda Lozoya DO Status: REG RCR Insurance: [facility] [employer] Language [employer] SELF PAY INSURANCE Patient's Visit Information KIMBERLY L PEYTONLAMAR is a 32 year old F referred to Physical Therapy by Ilda Lozoya with a diagnosis of L pec strain. D ate of Evaluation: 05/20/18 Physical Therapist: Salvador Alexander, PT, - Visit Plan Frequency: 1x/Week Duration: 1 Week Plan: Refer pt to Dr. Maciel, Chiropractor, for evaluation. Discharge at this time - Subjective Subjective: Pt reports she has had anterior chest wall pain intermittently since december. 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 Pt reports the pain would come and go, but for the past 2 weeks her pain is 90% worse than ever before. Pt reports moving her arm in different directions can provoke ba d pain. Pt reports open heart surgery 2012 for the second time secondary to bad valves. Pt reports she feels a knob on her L chest wall that is very sore. No difficulty with breathing secondary to pain. Diff with house duties secondary to pain, and Pt has not worked for the past 2 weeks. Pt is going to try to RTW Friday. No sleep diff secondary to pain. 1/10 pain at rest, 5/10 at worst - Pain L an terior chest wall Pain Intensity (Out of 10): 1 Pain Intensity Range: 5 - Objective Neuro: B UE sensation is WNL to light touch. B bicepital relfex= 2/3. Palpation: Sig lump surrounding sternum near T5 rib, most likely a rib out of place. MMT: B UE's are 5/5 throughout. Special testing: Pos sternal compression near T5 - Goals Goal 1:: N/A - Rehabilitation Potential Physical Therapy Diagnosis: Pt guan s L anterior chest wall pain most likely due to having a rib out of place Rehabilitation Potential: Good - Anticipated Interventions Patient/Client Instruction: Educate patient on: Condition, Plan of C are For the Purpose of:: To improve self management Thank you for the opportunity to evaluate your patient. For Medicare and Medicare HMO plans, please review the plan of care and approve it. It wi ll need to be FAXED BACK to us at [phone] for Medicare purposes. Please let me know if there are questions or concerns regarding this plan of care. Physician Signature: Date: <Electronically signed by Salvador Alexander PT, ATC> 05/20/18 0920 CC: Ilda Lozoya DO [facility] Signed For Medicar e only, by signing this I certify the plan of care. Physicians Signature Date 12-May-2018 12 Lead Electrocardiogram Result: Comments: See Note; NOTES: [facility] Cardiovascular Services [address] [place] [address] 12 Lead EKG 05/09/18 2133 MR#: [id number] Acct: [id number] Name: KIMBERLY REIS Rep #: [id number] : 1985 32 From: Barry Enciso MD Attending Dr: Status: DEP ER Ordering Dr: Suresh Allen DO Date: 05/09/18 Location: ED Sex: F C Admitted: Test Reason : CP Blood Pressure : /* mmHG Vent. Rate : 082 BPM Atrial Rate : 082 BPM P-R Int : 140 ms QRS Dur : 104 ms QT Int : 386 ms P-R-T Axes : 044 014 095 degrees QTc Int : 450 ms Normal sinus rhythm Poor R wave progression Abnorm al ECG Confirmed by BARRY ENCISO MD ([id number]), multimedia editor HECTOR JAEGER ([id number]) on 05/12/2018 2:41:20 PM Referred By: MK Confirmed By:BARRY ENCISO MD 05/12/18 1441 Date Barry Enciso MD CC: Ilda Lozoya DO; Suresh Allen Signed 09-May-2018 Emergency Department Summary Result: Comments: See Note; NOTES: [facility] Medical Records Department [address] [place] [address] Emergency Department Summary 05/09/18 2145 MR#: [id number] Acct: [id number] Name: KIMBERLY REIS Rep #: [id number] : 1985 32 From: Suresh Arevalo PCP: Ilda Lozoya DO Status: REG ER - ER Visit Summary Date of Service: 05/09/18 Chief Complaint: Chest pain History of Present Illness: The patient is a 32 F waxing waning chest pain since yesterday evening. Pain left side moved to the right. Noted pain bilaterally. Dyspnea. No nausea or vomiting. History of diabetes, h ypertension, hypercholesterolemia. No tobacco history. History of bicuspid valve, along with thoracic aneurysm, this was repaired in 2006. Additional valve repair in 2012. She just takes aspirin. No his tory of stress test or heart cath in the past. No similar symptoms. No recent travel, surgeries, or immobilizations. No history of PE or DVT. States pain currently resolved. Take baby aspirin today. Ph ysical Examination: General: Alert and oriented 3, no acute distress HEENT: Normocephalic, atraumatic. Moist mucosa membranes Neck: supple, nontender. Cardiovascular: Regular rate and rhythm, no murmurs . Midline chest scar Respiratory: Normal breath sounds, symmetric, no distress Abdomen: Soft, nontender, nondistended Extremities: Nontender, no edema, pulses intact 4 Neuro: no focal neurological defic its. Test Results: EKG: Sinus rate of 82, nonspecific ST depression in 1 and aVL, T-wave inversion in aVL. Troponin negative. Baseline labs negative. Chest x-ray negative. Emergency Department Course and Treatment: Patient treated with aspirin. EKG noted nonspecific ST depression, extreme lateral leads, less than 0.5 mm. Symptom-free on my evaluation. Workup negative troponin. Reevaluation complain s of pain when she moves her arm right lateral sternal region. She states she was lifting her child 2 days prior before symptoms. Pain with palpation. This is reproducible. Discussed with patient does h ave risk factors, heart scores a 2. FAREED is a 1. However has a negative troponin with over 24 hours of symptoms. Discussed with patient less likely cardiac in nature. With exam concerns for costochondri tis. Patient no contraindications to NSAIDs. Discussed continuing this and monitoring symptoms. Discussed with patient signs and symptoms to return. Patient understands and agrees with plan. Treatment Plan: [] Disposition: Discharge Impression: Acute costochondritis This note was generated with [employer] dictation software. It may contain incorrect words, spelling, and punctuation that were not not ed in review of the chart prior to signing ED Disposition - Plan for ED Patient: Disposition: Home or Assisted Living Chief Complaint: Chest Pain Diagnosis: Costochondritis Instructions: ED Chest Pa in Costochondritis Referrals: Ilda Lozoya DO [Primary Care Provider] - 3- 5 Days What to do if you have Problems For any increased pain, shortness of breath, bleeding, nausea or vomiting, chest pain, or any unexpected problems, contact your Primary Care Provider. Call [facility] Registry ([phone]) or report to the closest Emergency Room. Call 911 if necessary. 05/09/18 2239 <Electr onically signed by Suresh Arevalo> Date Suresh Arevalo Cosigner Signature (If Indicated): Date CC: Ilda Lozoya DO 09-May-2018 Chest 1 View (Portable) Result: Comments: See Note; NOTES: [facility] Imaging Services [address] [place] [address] Chest 1 View (Portable) MR#: [id number] Acct: [id number] Name: KIMBERLY REIS Rep #: [id number] : 1985 F 32 From: Mahesh Ma MD PCP: Ilda Lozoya DO Status: REG ER Study: Chest 1 View (Portable) Date of Exam: 05/09/18 Exam# [id number] Ordering Dr: Suresh Allen DO STUDY: X-RAY CHEST REASON FOR EXAM: Female, 32 years old. Chest pain for 2 days. History of aortic valve replacement and abdominal aortic aneurysm. Hypertension and asthma. TECHNIQUE: Single AP portable view of the chest. COMPARISON: 05/21/2016. FINDINGS: The lungs are clear and expanded. There is no demonstrated pleural abnormality. Normal size heart. There are sterno kay wires. Normal mediastinum and alvin. Normal visualized pulmonary arteries. Normal visualized aortic arch and descending thoracic aorta. Normal visualized thoracic spine. Normal visualized ribs, cla vicles, and shoulders. There is no demonstrated abnormality of the visualized soft tissue structures of the upper abdomen. RAD/Chest 1 View (Por table) IMPRESSION: No evidence for acute cardiopulmonary pathology. Electronically Signed: Mahesh Ma MD at 22:15 EDT , Service support , Fax CC: Ilda Lozoya DO; Suresh Allen Staff Writer: Signed 06-Jul-2017 Discharge Instruction Result: Comments: See Note; NOTES: [facility] Medical Records Department [address] [place] [address] Discharge Instruction 07/06/17 0124 MR#: [id number] Acct: [id number] Name: LEANN NAPIERSSPERCY Watkins Rep #: [id number] : 1985 31 From: Wolfgang Mac MD PCP: Ilda Lozoya DO Status: REG REF ED Disposition - Plan for ED Patient: Disposition: Home or Assisted Living Chief Com plaint: Occup Expose Instructions: ED Body Fluid Exp HC Worker Referrals: Ilda Lozoya DO [Primary Care Provider] - As Needed Corporate,Care [GROUP OF PHYSICIANS] - As soon as possible Additional In structions: All through with blood exposure protocol. Follow-up with corporate care and hospital employee health. Return to work without any restrictions today. What to do if you have Problems For any increased pain, shortness of breath, bleeding, nausea or vomiting, chest pain, or any unexpected problems, contact your Primary Care Provider. Call [facility] ([phone]) or report to the closest Emergency Room. Call 911 if necessary. 07/06/17 0236 <Electronically signed by Wolfgang Mac MD> Date Wolfgang Mac MD Co signer Signature (If Indicated): Date CC: Ilda Lozoya DO 06-Jul-2017 Emergency Department Summary Result: Comments: See Note; NOTES: [facility] Medical Records Department [address] [place] [address] Emergency Department Summary 07/06/17 0122 MR#: [id number] Acct: [id number] Name: KIMBERLY REIS Rep #: [id number] : 1985 31 From: Wolfgang Mac MD PCP: Ilda Lozoya DO Status: REG REF - ER Visit Summary Date of Service: 07/06/17 Chief Complaint: Sprayed with bl ood in her eyes during delivery History of Present Illness: The patient is a 31 F 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 Down here for workers comp evaluation. P hysical Examination: Well-appearing young female. Vital signs are stable afebrile. HEENT exam unremarkable. Pupils round reactive light. Neck nontender no lymphadenopathy. Lungs clear to auscultation bi laterally. Heart regular rhythm no murmur. Abdomen soft nontender. Extremities moves all 4. Neurovascularly intact. Test Results: Blood exposure protocol. Labs to be followed up by corporate care and ospital employee health. Emergency Department Course and Treatment: [] Treatment Plan: Discharged with follow-up through employee health and corporate care Disposition: Discharge Impression: Blood e xposure to her eyes Worker's comp History of diabetes ED Disposition - Plan for ED Patient: Chief Complaint: Occup Expose Referrals: Ilda Lozoya DO [Primary Care Provider] - What to do if yo u have Problems For any increased pain, shortness of breath, bleeding, nausea or vomiting, chest pain, or any unexpected problems, contact your Primary Care Provider. Call Doctors Registry ) or report to the closest Emergency Room. Call 911 if necessary. 07/06/17 0236 <Electronically signed by Wolfgang Mac MD> Date Mao Mac MD Cosigner Signature (If Indicated): Date CC: Ilda Lozoya DO 25-Jun-2017 Thyroid Result: Comments: See Note; NOTES: [facility] Imaging Services [address] [place] [address] Thyroid MR#: [id number] Acct: [id number] Name: KIMBERLY REIS Rep #: [id number] : 1985 F 31 From: Rhys Espinoza MD PCP: Ilda Lozoya DO Status: REG CLI Study: Thyroid Date of Exam: 06/25/17 Exam# [id number] Ordering Dr: Ilda Lozoya DO STUDY: THYROID ULTRASOUND R NEL FOR EXAM: Female, 31 years old. Thyroid goiter. TECHNIQUE: Ultrasound evaluation of the thyroid was performed with real-time and static petit-scale imaging. COMPARISON: Comparison is made with pr ior ultrasound of thyroid dated June 05, 2010. FINDINGS: RIGHT LOBE: The right lobe of the thyroid gland measures 4.1 cm x 1.4 cm x 1.8 cm. There is a homogene ous echotexture. There are no demonstrated solid, cystic or complex lesions. LEFT LOBE: The left lobe of the thyroid gland measures 4.0 cm x 1.4 cm x 1.9 cm. There is a homogeneous echotexture. There i s a 1.3 cm x 1.0 cm x 1.4 cm echogenic solid nodule in the superior posterior portion of the left lobe. This also evidence of a slightly echogenic nodule in the lower pole measuring 3 mm x 3 mm x 3 mm. ISTHMUS: The isthmus measures 4.0 mm. The regional lymph nodes are normal. US/Thyroid IMPRESSION: Dominant echogenic nodule in the superior po sterior aspect of the left lobe of the thyroid measuring 1.3 cm x 1 cm x 1.4 cm. A biopsy recommended. Electronically Signed: Rhys Espinoza MD at 14:37 EDT Tel [phone], Service supp ort , CC: Ilda Lozoya DO Staff Writer: Signed 27-May-2016 12 Lead Electrocardiogram Result: Comments: See Note; NOTES: [facility] Cardiovascular Services [address] [place] [address] 12 Lead EKG 05/21/162050 MR#: [id number] Acct: [id number] Name: KOBY REIS Rep #: [id number] : 1985 30 From: Jasen Walker MD Attending Dr: Status: DEP ER Ordering Dr: Lottie Hou MD Date: 05/21/16 Location: ED Sex: F C Admitted: Test Reason : PALPITATIONS Blood Pressure : / mmHG Vent. Rate : 072 BPM Atrial Rate : 072 BPM P-R Int : 124 ms QRS Dur : 104 ms QT Int : 400 ms P-R-T Axes : 049 055 077 degrees QTc Int : 438 ms Normal sinus rhythm Septal i nfarct , age undetermined Abnormal ECG Confirmed by JASEN WALKER ([id number]), multimedia editor HECTOR JAEGER ([id number]) on 05/27/2016 2:21:18 PM Referred By: SAMMY Confirmed By:JASEN WALKER 05/27/16 1421 Date ____ Jasen Walker MD CC: Hortencia Suarez MD Date Dictated: 05/21/162050 Date Transcribed: 05/21/162050 Staff Writer: Signed 23-May-2016 Emergency Department Summary Result: Comments: See Note; NOTES: [facility] Medical Records Department [address] [place] [address] Emergency Department Summary MR#: [id number] Acct: [id number] Name: KIMBERLY REIS Rep #: [id number] : 1985 30 From: Lottie Hou MD PCP: Hortencia Suarez MD Status: DEP ER DATE OF SERVICE: 05/21/2016 CHIEF COMPLAINT: Irregular heartbeat. 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 She had a graft repair as well as a valve replacement at that time at the [facility]. This is a bovine valve. In 2012 after having her third child, it was noted that her valve had failed and it was replaced with a Trifecta valve. The patient comes in tonight with the irregular heartbeat at work earlier today. She states her radial pulse would measure into the 40s. She had no presyncope, had no shortness of breath, had some very mild chest pressure. She does admit to being noncompliant with her medications. She states she was off her metoprolol for a few weeks. She restarted that last after she began having some palpi tations. She did take Diflucan this past weekend. She states otherwise there have been no other changes to her medications. She also has a history of reflux disease, hypertension, asthma and hypothyroid ism. PHYSICAL EXAMINATION: VITAL SIGNS: Blood pressure 192/121, temperature 98.3, heart rate 79, respiratory rate 16, pulse oximetry 97% on room air. GENERAL: The patient is sitting upright in bed. She is nervous and tearful. HEAD AND NECK: Unremarkable. HEART: Regular. She has III/ murmur noted. LUNGS: Clear. ABDOMEN: Soft, nontender. EXTREMITIES: She has no calf tenderness or edema. HOSPITAL COU RSE: The patient was observed and blood pressure is now down to 148/83. CBC is unremarkable. Chemistry studies are significant for a glucose of 303. Troponin is negative. Her TSH is elevated at 8.11. Sh e does admit that she was off her Synthroid as well. EKG is sinus at [address] change noted. On repeat evaluation, the patient is resting comfortably. She is actually having a few more PVCs no w. When I first saw her, she had very few noted on the monitor. She states she normally takes her metoprolol at night. She will be given 5 mg IV now. 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 DISPOSITION: Discharge. IMPRESSION: 1. Palpitations. 2. Premature ventricular contractions. Lottie Hou MD T: NTS JOB: [id number] 05/23/16 152 <Electronically signed by Dee Hou MD> Date Lottie Hou MD Cosigner Signature (If Indicated): Date CC: Hortencia caicedo MD Date Dictated: 05/21/162230 Date Transcribed: 05/21/162230 Staff Writer: Signed 21-May-2016 Discharge Instruction Result: Comments: See Note; NOTES: [facility] Medical Records Department [address] [place] [address] Discharge Instruction 05/21/162225 MR#: [id number] Acct: [id number] Name: KIMBERLY WINSLOW Rep #: [id number] : 1985 30 From: Lottie Hou MD PCP: Hortencia Suarez MD Status: REG ER ED Disposition - Plan for ED Patient: Disposition: Home or Assisted Living Chief Comp laint: Palpitations Instructions: ED Palpitations, Premature Ventricular Contractions Referrals: Arvin Burgess MD [CONSULTING PHYSICIAN] - As soon as possible What to do if you have Problems For any in creased pain, shortness of breath, bleeding, nausea or vomiting, chest pain, or any unexpected problems, contact your doctor. Call [facility] ([phone]) or report to the closest Emergency Room . Call 911 if necessary. 05/21/16 2227 <Electronically signed by Lottie Hou MD> Date Lottie Hou MD Cosigner Signature (If I ndicated): Date CC: Hortencia Suarez MD 21-May-2016 Chest 1 View (Portable) Result: Comments: See Note; NOTES: [facility] Imaging Services [address] [place] [address] Verdana 4d Chest 1 View (Portable) MR#: [id number] Acct: [id number] Name: ARLETH REIS PERCY Watkins Rep #: [id number] : 1985 F 30 From: Mitchell Jurado PCP: Hortencia Suarez MD Status: REG ER Study: Chest 1 View (Portable) Date of Exam: 05/21/16 Exam# [id number] Ordering Dr: Lottie Hou MD STUDY: X-RAY CHEST REASON FOR EXAM: Female, 30 years old. Palpitations TECHNIQUE: Single AP portable view of the chest. COMPARISON: 06/29/13. FINDINGS: The lungs are clear and expanded. There is no demonstrated pleural abnormality. Normal size heart. Patient status post sternotomy. Normal mediastinum and alvin. Normal visualized pulmonary arteries. Normal visua lized aortic arch and descending thoracic aorta. Normal visualized thoracic spine. Normal visualized ribs, clavicles, and shoulders. There is no demonstrated abnormality of the visualized soft tissue structures of the upper abdomen. RAD/Chest 1 View (Portable) IMPRESSION: No acute cardiopulmonary disease. Electronically Signed: Mitchell Jurado DO at 22:24 EDT , Service support [phone], CC: Hortencia Suarez MD; Lottie Hou MD Staff Writer: Signed 09-Dec-2014 Emergency Department Summary Result: Comments: See Note; NOTES: [facility] Medical Records Department [address] [place] [address] Emergency Department Summary MR#: [id number] Acct: [id number] Name: KIMBERLY WINSLOW Rep #: [id number] : 1985 29 From: Jasen Contreras DO PCP: Hortencia Suarez MD Status: DEP ER DATE OF SERVICE: 12/08/2014 CHIEF COMPLAINT: Foot injury. HISTORY OF PRESENT ILL NESS: A 29-year-old female sustained a fall yesterday noting pain to the left foot and ankle region, particularly laterally. PHYSICAL EXAMINATION: VITAL SIGNS: Afebrile. Vital signs are stable. E XTREMITIES: She has some contusion and hematoma formation over the lateral aspect of the left foot and the left lateral malleolus. She is neurovascularly intact. EMERGENCY DEPARTMENT COURSE: Foot a nd ankle films were negative. She will be discharged home with [place] wrap and supportive care. [facility] therapy. CLINICAL IMPRESSION: Left foot sprain. Jasen Contreras DO T: NTS JOB: [id number] 12/09/14 0035 <Electronically signed by Jasen Contreras DO> Date Jasen Contreras DO CC: Hortencia Suarez MD Date Dictated: 12/08/142251 Date Transcribed: 12/08/142251 Staff Writer: Signed 08-Dec-2014 Discharge Instruction Result: Comments: See Note; NOTES: [facility] Medical Records Department [address] [place] [address] Discharge Instruction 12/08/14 181 MR#: [id number] Acct: [id number] Name: KIMBERLY REIS Rep #: [id number] : 1985 29 From: Jasen Contreras DO PCP: Hortencia Suarez MD Status: REG ER ED Disposition - Plan for ED Patient: Disposition: Home Chief Complaint: L ower Extremity Injury Instructions: ED Sprain, Foot Referrals: Hortencia Suarez MD [Primary Care Provider] - As Needed What to do if you have Problems For any increased pain, shortness of breath, bleeding, nausea or vomiting, chest pain, or any unexpected problems, contact your doctor. Call [facility] ( [phone]) or report to the closest Emergency Room. Call 911 if necessary. 11/14 <Electronically signed by Jasen Contreras DO> Date aJsen Contreras DO Cosigner Signature (If Indicated): Date CC: Hortencia Suarez MD 08-Dec-2014 Ankle min 3 Views Result: Comments: See Note; NOTES: [facility] Imaging Services [address] [place] [address] Radiology Report MR#: [id number] Acct: [id number] Name: KIMBERLY REIS June Rep #: [id number] : 1985 F 29 From: Rhys Espinoza MD PCP: Hortencia Suarez MD Status: DEP ER Study: Ankle min 3 Views Date of Exam: 12/08/14 Exam# [id number] Ordering Dr: Jasen Contreras DO GABBIE DY: X-RAY - LEFT ANKLE REASON FOR EXAM: Female, 29 years old. Pain following a fall. TECHNIQUE: 3 view(s) of the ankle. COMPARISON: None. FINDINGS: Normal v isualized distal tibia and fibula. Normal medial and lateral malleoli. Normal tibiotalar articulation and ankle mortise. Normal visualized talus and calcaneus. There is a 6.7 mm well-defined bony d ensity adjacent to the plantar aspect of the cuboid bone. This may represent either an accessory ossicle or old fracture. Soft tissue swelling. IMPRESSION: So ft tissue swelling. Electronically Signed: Rhys Espinoza MD at 8:51 EDT Tel [phone], Service support [phone], CC: Hortencia Suarez MD; Jasen Contreras DO Staff Writer: Signed 08-Dec-2014 Foot min 3 Views Result: Comments: See Note; NOTES: [facility] Imaging Services [address] [place] [id number] Radiology Report MR#: [id number] Acct: [id number] Name: KIMBERLY REIS Rep #: [id number] : 1985 F 29 From: Rhys Espinoza MD PCP: Hortencia Suarez MD Status: DEP ER Study: Foot min 3 Views Date of Exam: 12/08/14 Exam# [id number] Ordering Dr: Jasen Contreras Y: X-RAY - LEFT FOOT CLINICAL: Female, 29 years old. Lateral pain following a fall. TECHNIQUE: 3 view(s) of the foot. COMPARISON: None. FINDINGS: Normal miguel us, calcaneus, and tarsal bones. Normal visualized subtalar, talonavicular, calcaneocuboid, tarsal and tarsometatarsal articulations. Normal metatarsi. Normal metatarsophalangeal joint of the gre at toe. Normal tibial and fibular sesamoid bones. Normal interphalangeal joint of the great toe. Normal phalanges of the great toe. Normal second through fifth metatarsophalangeal joints. Normal in terphalangeal joints and phalanges of the lesser toes. The soft tissue structures are unremarkable. IMPRESSION: Normal x- ray examination of the foot. 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 Status: Active Smoking Status Name Dates Details Never smoker Vital Signs Date Test Result Details :20 Temperature 98.7 f Comments: Method: Temporal Pulse 77 /min Comments: Pattern: Regular Respiration Rate 18 /min Comments: Pattern: Unlabored O2 SAT 98 % Comments: Room air BP Systolic 122 mm[Hg] Comments: Patient Position: Sitting; Cuff Location: Left Arm; Cuff Size: Large BP Diastolic 84 mm[Hg] Comments: Patient Position: Sitting; Cuff Location: Left Arm; Cuff Size: Large Weight 214.25 lb Height 67 in Body Mass Index Calculated 33.56 kg/m2 Body Surface Area Calculated 2.08 m2 :06 Temperature 98.4 f Comments: Method: Temporal Pulse 85 /min Comments: Pattern: Regular Respiration Rate 20 /min Comments: Pattern: Unlabored O2 SAT 99 % Comments: Room air BP Systolic 142 mm[Hg] Comments: Patient Position: Sitting; Cuff Location: Left Arm; Cuff Size: Large BP Diastolic 98 mm[Hg] Comments: Patient Position: Sitting; Cuff Location: Left Arm; Cuff Size: Large Weight 217.5 lb Height 67 in Body Mass Index Calculated 34.06 kg/m2 Body Surface Area Calculated 2.1 m2 :16 Temperature 97.4 f Comments: Method: Temporal Pulse 75 /min Comments: Pattern: Regular Respiration Rate 13 /min Comments: Pattern: Unlabored O2 SAT 98 % Comments: Room air BP Systolic 120 mm[Hg] Comments: Patient Position: Sitting; Cuff Location: Left Arm; Cuff Size: Standard BP Diastolic 80 mm[Hg] Comments: Patient Position: Sitting; Cuff Location: Left Arm; Cuff Size: Standard Weight 218.125 lb Height 67 in Body Mass Index Calculated 34.16 kg/m2 Body Surface Area Calculated 2.1 m2 :38 Pulse 69 /min Comments: Pattern: Regular Respiration Rate 18 /min Comments: Pattern: Unlabored O2 SAT 99 % Comments: Room air BP Systolic 122 mm[Hg] Comments: Patient Position: Sitting; Cuff Location: Left Arm; Cuff Size: Large BP Diastolic 78 mm[Hg] Comments: Patient Position: Sitting; Cuff Location: Left Arm; Cuff Size: Large Weight 218.375 lb Height 67 in Body Mass Index Calculated 34.2 kg/m2 Body Surface Area Calculated 2.1 m2 :53 Pulse 71 /min Comments: Pattern: Regular Respiration Rate 18 /min Comments: Pattern: Unlabored O2 SAT 98 % Comments: Room air BP Systolic 122 mm[Hg] Comments: Patient Position: Sitting; Cuff Location: Left Arm; Cuff Size: Standard BP Diastolic 82 mm[Hg] Comments: Patient Position: Sitting; Cuff Location: Left Arm; Cuff Size: Standard Weight 221 lb Height 67 in Body Mass Index Calculated 34.61 kg/m2 Body Surface Area Calculated 2.11 m2 :09 Pulse 88 /min Comments: Pattern: Regular Respiration Rate 18 /min Comments: Pattern: Unlabored O2 SAT 98 % Comments: Room air BP Systolic 128 mm[Hg] Comments: Patient Position: Sitting; Cuff Location: Left Arm; Cuff Size: Large BP Diastolic 88 mm[Hg] Comments: Patient Position: Sitting; Cuff Location: Left Arm; Cuff Size: Large Weight 224 lb Height 67 in Body Mass Index Calculated 35.08 kg/m2 Body Surface Area Calculated 2.12 m2 :30 Pulse 89 /min Comments: Pattern: Regular Respiration Rate 18 /min Comments: Pattern: Unlabored O2 SAT 98 % Comments: Room air BP Systolic 142 mm[Hg] Comments: Patient Position: Sitting; Cuff Location: Left Arm; Cuff Size: Large BP Diastolic 98 mm[Hg] Comments: Patient Position: Sitting; Cuff Location: Left Arm; Cuff Size: Large Weight 217 lb Height 67 in Body Mass Index Calculated 33.99 kg/m2 Body Surface Area Calculated 2.09 m2 :32 Pulse 85 /min Comments: Pattern: Regular Respiration Rate 18 /min Comments: Pattern: Unlabored O2 SAT 99 % Comments: Room air BP Systolic 128 mm[Hg] Comments: Patient Position: Sitting; Cuff Location: Left Arm; Cuff Size: Large BP Diastolic 88 mm[Hg] Comments: Patient Position: Sitting; Cuff Location: Left Arm; Cuff Size: Large Weight 218.375 lb Height 67 in Body Mass Index Calculated 34.2 kg/m2 Body Surface Area Calculated 2.1 m2 :35 Pulse 73 /min Comments: Pattern: Regular Respiration Rate 18 /min Comments: Pattern: Unlabored O2 SAT 99 % Comments: Room air BP Systolic 128 mm[Hg] Comments: Patient Position: Sitting; Cuff Location: Left Arm; Cuff Size: Large BP Diastolic 88 mm[Hg] Comments: Patient Position: Sitting; Cuff Location: Left Arm; Cuff Size: Large Weight 219.375 lb Height 67 in Body Mass Index Calculated 34.36 kg/m2 Body Surface Area Calculated 2.1 m2 :29 Pulse 88 /min Comments: Pattern: Regular Respiration Rate 18 /min Comments: Pattern: Unlabored O2 SAT 98 % Comments: Room air BP Systolic 138 mm[Hg] Comments: Patient Position: Sitting; Cuff Location: Left Arm; Cuff Size: Standard BP Diastolic 98 mm[Hg] Comments: Patient Position: Sitting; Cuff Location: Left Arm; Cuff Size: Standard Weight 220 lb Height 67 in Body Mass Index Calculated 34.46 kg/m2 Body Surface Area Calculated 2.11 m2 :12 Comments: repeat 132/98 Pulse 75 /min Comments: Pattern: Regular Respiration Rate 18 /min Comments: Pattern: Unlabored O2 SAT 97 % Comments: Room air BP Systolic 158 mm[Hg] Comments: Patient Position: Sitting BP Diastolic 102 mm[Hg] Comments: Patient Position: Sitting Weight 223 lb Height 67 in Body Mass Index Calculated 34.93 kg/m2 Body Surface Area Calculated 2.12 m2 :48 Temperature 97.7 f Pulse 78 /min Comments: Pattern: Regular Respiration Rate 18 /min Comments: Pattern: Unlabored O2 SAT 98 % Comments: Room air BP Systolic 128 mm[Hg] Comments: Patient Position: Sitting; Cuff Location: Left Arm; Cuff Size: Standard BP Diastolic 84 mm[Hg] Comments: Patient Position: Sitting; Cuff Location: Left Arm; Cuff Size: Standard Weight 231 lb Height 67 in Body Mass Index Calculated 36.18 kg/m2 Body Surface Area Calculated 2.15 m2 :25 Temperature 97.6 f Comments: Method: Temporal Pulse 74 /min Comments: Pattern: Regular Respiration Rate 20 /min Comments: Pattern: Unlabored O2 SAT 98 % Comments: Room air BP Systolic 120 mm[Hg] Comments: Patient Position: Sitting; Cuff Location: Left Arm; Cuff Size: Large BP Diastolic 80 mm[Hg] Comments: Patient Position: Sitting; Cuff Location: Left Arm; Cuff Size: Large Weight 231 lb Height 67 in Body Mass Index Calculated 36.18 kg/m2 Body Surface Area Calculated 2.15 m2 :08 Temperature 97.6 f Comments: Method: Temporal Pulse 70 /min Comments: Pattern: Regular Respiration Rate 18 /min Comments: Pattern: Unlabored O2 SAT 98 % Comments: Room air BP Systolic 124 mm[Hg] Comments: Patient Position: Sitting; Cuff Location: Left Arm; Cuff Size: Standard BP Diastolic 80 mm[Hg] Comments: Patient Position: Sitting; Cuff Location: Left Arm; Cuff Size: Standard Weight 236 lb Height 67 in Body Mass Index Calculated 36.96 kg/m2 Body Surface Area Calculated 2.17 m2 :54 Temperature 98.8 f Comments: Method: Oral Pulse 76 /min Comments: Pattern: Regular O2 SAT 96 % Comments: Room air BP Systolic 126 mm[Hg] Comments: Patient Position: Sitting; Cuff Location: Left Arm; Cuff Size: Standard BP Diastolic 82 mm[Hg] Comments: Patient Position: Sitting; Cuff Location: Left Arm; Cuff Size: Standard Weight 246 lb Height 67 in Body Mass Index Calculated 38.53 kg/m2 Body Surface Area Calculated 2.21 m2 :43 Temperature 98 f Comments: Method: Oral Pulse 70 /min Comments: Pattern: Regular O2 SAT 98 % Comments: Room air BP Systolic 120 mm[Hg] Comments: Patient Position: Sitting; Cuff Location: Left Arm; Cuff Size: Standard BP Diastolic 76 mm[Hg] Comments: Patient Position: Sitting; Cuff Location: Left Arm; Cuff Size: Standard Weight 246 lb Height 67 in Body Mass Index Calculated 38.53 kg/m2 Body Surface Area Calculated 2.21 m2 :35 Temperature 97.6 f Comments: Method: Oral Pulse 70 /min Comments: Pattern: Regular Respiration Rate 20 /min Comments: Pattern: Unlabored BP Systolic 120 mm[Hg] Comments: Patient Position: Sitting; Cuff Location: Left Arm; Cuff Size: Large BP Diastolic 74 mm[Hg] Comments: Patient Position: Sitting; Cuff Location: Left Arm; Cuff Size: Large Weight 246 lb Height 67 in Body Mass Index Calculated 38.53 kg/m2 Body Surface Area Calculated 2.21 m2 :24 Pulse 79 /min Comments: Pattern: Regular Respiration Rate 18 /min Comments: Pattern: Unlabored O2 SAT 98 % Comments: Room air BP Systolic 122 mm[Hg] Comments: Patient Position: Sitting; Cuff Location: Left Arm; Cuff Size: Standard BP Diastolic 70 mm[Hg] Comments: Patient Position: Sitting; Cuff Location: Left Arm; Cuff Size: Standard Weight 227 lb Height 67 in Body Mass Index Calculated 35.55 kg/m2 Body Surface Area Calculated 2.13 m2 :12 Temperature 98 f Comments: Method: Temporal Pulse 78 /min Comments: Pattern: Regular Respiration Rate 16 /min Comments: Pattern: Unlabored O2 SAT 98 % Comments: Room air BP Systolic 138 mm[Hg] Comments: Patient Position: Sitting; Cuff Location: Left Arm; Cuff Size: Standard BP Diastolic 84 mm[Hg] Comments: Patient Position: Sitting; Cuff Location: Left Arm; Cuff Size: Standard Weight 227 lb Height 67 in Body Mass Index Calculated 35.55 kg/m2 Body Surface Area Calculated 2.13 m2 :36 Temperature 98.4 f Comments: Method: Oral Pulse 78 /min Comments: Pattern: Regular O2 SAT 98 % Comments: Room air BP Systolic 120 mm[Hg] Comments: Patient Position: Sitting; Cuff Location: Left Arm; Cuff Size: Standard BP Diastolic 72 mm[Hg] Comments: Patient Position: Sitting; Cuff Location: Left Arm; Cuff Size: Standard Weight 227 lb Height 67 in Body Mass Index Calculated 35.55 kg/m2 Body Surface Area Calculated 2.13 m2 :37 Temperature 98.1 f Pulse 64 /min Comments: Pattern: Regular Respiration Rate 18 /min Comments: Pattern: Unlabored BP Systolic 120 mm[Hg] Comments: Patient Position: Sitting; Cuff Location: Left Arm; Cuff Size: Large BP Diastolic 78 mm[Hg] Comments: Patient Position: Sitting; Cuff Location: Left Arm; Cuff Size: Large Weight 227 lb Height 67 in Body Mass Index Calculated 35.55 kg/m2 Body Surface Area Calculated 2.13 m2 :04 Temperature 97.8 f Comments: Method: Oral Pulse 88 /min Comments: Pattern: Regular Respiration Rate 16 /min O2 SAT 97 % Comments: Room air BP Systolic 124 mm[Hg] Comments: Patient Position: Sitting; Cuff Location: Left Arm; Cuff Size: Standard BP Diastolic 76 mm[Hg] Comments: Patient Position: Sitting; Cuff Location: Left Arm; Cuff Size: Standard Weight 235 lb Height 67 in Body Mass Index Calculated 36.81 kg/m2 Body Surface Area Calculated 2.17 m2 :27 Temperature 98.8 f Comments: Method: Oral Pulse 76 /min Comments: Pattern: Regular O2 SAT 97 % Comments: Room air BP Systolic 124 mm[Hg] Comments: Patient Position: Sitting; Cuff Location: Left Arm; Cuff Size: Standard BP Diastolic 70 mm[Hg] Comments: Patient Position: Sitting; Cuff Location: Left Arm; Cuff Size: Standard Weight 235 lb Height 67 in Body Mass Index Calculated 36.81 kg/m2 Body Surface Area Calculated 2.17 m2 :18 Temperature 97.3 f Comments: Method: Oral Pulse 78 /min Comments: Pattern: Regular Respiration Rate 18 /min O2 SAT 98 % Comments: Room air BP Systolic 120 mm[Hg] Comments: Patient Position: Sitting; Cuff Location: Left Arm; Cuff Size: Standard BP Diastolic 72 mm[Hg] Comments: Patient Position: Sitting; Cuff Location: Left Arm; Cuff Size: Standard Weight 235 lb Height 67 in Body Mass Index Calculated 36.81 kg/m2 Body Surface Area Calculated 2.17 m2 :12 Temperature 97.5 f Comments: Method: Oral Pulse 68 /min Comments: Pattern: Regular Respiration Rate 20 /min Comments: Pattern: Unlabored BP Systolic 124 mm[Hg] Comments: Patient Position: Sitting; Cuff Location: Left Arm; Cuff Size: Large BP Diastolic 70 mm[Hg] Comments: Patient Position: Sitting; Cuff Location: Left Arm; Cuff Size: Large Weight 235 lb Height 67 in Body Mass Index Calculated 36.81 kg/m2 Body Surface Area Calculated 2.17 m2 :34 Temperature 97.9 f Comments: Method: Oral Pulse 70 /min Comments: Pattern: Regular Respiration Rate 18 /min Comments: Pattern: Unlabored BP Systolic 118 mm[Hg] Comments: Patient Position: Sitting; Cuff Location: Left Arm; Cuff Size: Standard BP Diastolic 76 mm[Hg] Comments: Patient Position: Sitting; Cuff Location: Left Arm; Cuff Size: Standard Weight 235 lb Height 67 in Body Mass Index Calculated 36.81 kg/m2 Body Surface Area Calculated 2.17 m2 :01 Temperature 97.6 f Comments: Method: Oral Pulse 68 /min Comments: Pattern: Regular Respiration Rate 18 /min Comments: Pattern: Unlabored BP Systolic 116 mm[Hg] Comments: Patient Position: Sitting; Cuff Location: Left Arm; Cuff Size: Standard BP Diastolic 72 mm[Hg] Comments: Patient Position: Sitting; Cuff Location: Left Arm; Cuff Size: Standard Weight 235 lb Height 67 in Body Mass Index Calculated 36.81 kg/m2 Body Surface Area Calculated 2.17 m2 :54 Temperature 98 f Comments: Method: Oral Pulse 68 /min Comments: Pattern: Regular Respiration Rate 18 /min Comments: Pattern: Unlabored BP Systolic 116 mm[Hg] Comments: Patient Position: Sitting; Cuff Location: Left Arm; Cuff Size: Standard BP Diastolic 74 mm[Hg] Comments: Patient Position: Sitting; Cuff Location: Left Arm; Cuff Size: Standard Weight 235 lb Height 67 in Body Mass Index Calculated 36.81 kg/m2 Body Surface Area Calculated 2.17 m2 :07 Temperature 97.6 f Comments: Method: Oral Pulse 70 /min Comments: Pattern: Regular Respiration Rate 18 /min Comments: Pattern: Unlabored BP Systolic 120 mm[Hg] Comments: Patient Position: Sitting; Cuff Location: Left Arm; Cuff Size: Standard BP Diastolic 74 mm[Hg] Comments: Patient Position: Sitting; Cuff Location: Left Arm; Cuff Size: Standard Weight 235 lb Height 67 in Body Mass Index Calculated 36.81 kg/m2 Body Surface Area Calculated 2.17 m2 :14 O2 SAT 97 % Comments: Room air :44 Temperature 98.2 f Comments: Method: Oral Pulse 68 /min Comments: Pattern: Regular Respiration Rate 18 /min Comments: Pattern: Unlabored BP Systolic 116 mm[Hg] Comments: Patient Position: Sitting; Cuff Location: Left Arm; Cuff Size: Standard BP Diastolic 72 mm[Hg] Comments: Patient Position: Sitting; Cuff Location: Left Arm; Cuff Size: Standard Weight 207 lb Height 67 in Body Mass Index Calculated 32.42 kg/m2 Body Surface Area Calculated 2.05 m2 :43 Temperature 97.6 f Comments: Method: Oral Pulse 64 /min Comments: Pattern: Regular Respiration Rate 18 /min Comments: Pattern: Unlabored BP Systolic 118 mm[Hg] Comments: Patient Position: Sitting; Cuff Location: Left Arm; Cuff Size: Standard BP Diastolic 70 mm[Hg] Comments: Patient Position: Sitting; Cuff Location: Left Arm; Cuff Size: Standard Weight 207 lb Height 67 in Body Mass Index Calculated 32.42 kg/m2 Body Surface Area Calculated 2.05 m2 :54 Temperature 98.7 f Comments: Method: Oral Pulse 80 /min Comments: Pattern: Regular Respiration Rate 16 /min Comments: Pattern: Unlabored BP Systolic 102 mm[Hg] Comments: Patient Position: Supine; Cuff Location: Left Arm; Cuff Size: Standard BP Diastolic 67 mm[Hg] Comments: Patient Position: Supine; Cuff Location: Left Arm; Cuff Size: Standard Weight 210.5 lb Height 67 in Body Mass Index Calculated 32.97 kg/m2 Body Surface Area Calculated 2.07 m2 :12 Pulse 72 /min Comments: Pattern: Regular Respiration Rate 18 /min Comments: Pattern: Unlabored BP Systolic 116 mm[Hg] Comments: Patient Position: Sitting; Cuff Location: Left Arm; Cuff Size: Standard BP Diastolic 76 mm[Hg] Comments: Patient Position: Sitting; Cuff Location: Left Arm; Cuff Size: Standard Weight 225.1875 lb :09 Temperature 97.8 f Pulse 84 /min Comments: Pattern: Regular Respiration Rate 16 /min Comments: Pattern: Unlabored BP Systolic 122 mm[Hg] Comments: Patient Position: Sitting; Cuff Location: Left Arm; Cuff Size: Standard BP Diastolic 84 mm[Hg] Comments: Patient Position: Sitting; Cuff Location: Left Arm; Cuff Size: Standard :52 Pulse 68 /min Comments: Pattern: Regular Respiration Rate 16 /min Comments: Pattern: Unlabored BP Systolic 114 mm[Hg] Comments: Patient Position: Sitting; Cuff Location: Left Arm; Cuff Size: Standard BP Diastolic 68 mm[Hg] Comments: Patient Position: Sitting; Cuff Location: Left Arm; Cuff Size: Standard Weight 213 lb Height 0 in Head Circumference 0.00 cm :02 Temperature 98.5 f Comments: Method: Oral Pulse 72 /min Comments: Pattern: Regular Respiration Rate 16 /min Comments: Pattern: Unlabored BP Systolic 96 mm[Hg] Comments: Patient Position: Sitting; Cuff Location: Left Arm; Cuff Size: Large BP Diastolic 60 mm[Hg] Comments: Patient Position: Sitting; Cuff Location: Left Arm; Cuff Size: Large Weight 0 lb Height 0 in Head Circumference 0.00 cm :44 Temperature 98.7 f Comments: Method: Oral Pulse 80 /min Comments: Pattern: Regular Respiration Rate 16 /min Comments: Pattern: Unlabored BP Systolic 110 mm[Hg] Comments: Patient Position: Sitting; Cuff Location: Left Arm; Cuff Size: Standard BP Diastolic 64 mm[Hg] Comments: Patient Position: Sitting; Cuff Location: Left Arm; Cuff Size: Standard Weight 212 lb Height 0 in Head Circumference 0.00 cm :37 Temperature 98.3 f Comments: Method: Oral Pulse 68 /min Comments: Pattern: Regular Respiration Rate 14 /min Comments: Pattern: Unlabored BP Systolic 148 mm[Hg] Comments: Patient Position: Sitting; Cuff Location: Left Arm; Cuff Size: Standard BP Diastolic 88 mm[Hg] Comments: Patient Position: Sitting; Cuff Location: Left Arm; Cuff Size: Standard Weight 0 lb Height 0 in Head Circumference 0.00 cm :04 Temperature 98.5 f Comments: Method: Oral Pulse 88 /min Comments: Pattern: Regular Respiration Rate 16 /min Comments: Pattern: Unlabored BP Systolic 116 mm[Hg] Comments: Patient Position: Sitting; Cuff Location: Right Arm; Cuff Size: Standard BP Diastolic 76 mm[Hg] Comments: Patient Position: Sitting; Cuff Location: Right Arm; Cuff Size: Standard Weight 0 lb Height 0 in Head Circumference 0.00 cm :41 Temperature 98 f Comments: Method: Oral Pulse 76 /min Comments: Pattern: Regular Respiration Rate 20 /min Comments: Pattern: Unlabored BP Systolic 110 mm[Hg] Comments: Patient Position: Sitting; Cuff Location: Left Arm; Cuff Size: Standard BP Diastolic 76 mm[Hg] Comments: Patient Position: Sitting; Cuff Location: Left Arm; Cuff Size: Standard Weight 212 lb Height 0 in Head Circumference 0.00 cm :15 Temperature 97.6 f Comments: Method: Oral Pulse 72 /min Comments: Pattern: Regular Respiration Rate 20 /min Comments: Pattern: Unlabored BP Systolic 108 mm[Hg] Comments: Patient Position: Sitting; Cuff Location: Left Arm; Cuff Size: Standard BP Diastolic 78 mm[Hg] Comments: Patient Position: Sitting; Cuff Location: Left Arm; Cuff Size: Standard Weight 0 lb Height 0 in Head Circumference 0.00 cm :43 Temperature 98.6 f Comments: Method: Oral Pulse 76 /min Comments: Pattern: Regular Respiration Rate 20 /min Comments: Pattern: Unlabored BP Systolic 124 mm[Hg] Comments: Patient Position: Sitting; Cuff Location: Left Arm; Cuff Size: Standard BP Diastolic 84 mm[Hg] Comments: Patient Position: Sitting; Cuff Location: Left Arm; Cuff Size: Standard Weight 208 lb Height 0 in Head Circumference 0.00 cm :42 Temperature 97.8 f Comments: Method: Oral Pulse 71 /min Comments: Pattern: Regular Respiration Rate 14 /min Comments: Pattern: Unlabored BP Systolic 110 mm[Hg] Comments: Patient Position: Sitting; Cuff Location: Left Arm; Cuff Size: Standard BP Diastolic 76 mm[Hg] Comments: Patient Position: Sitting; Cuff Location: Left Arm; Cuff Size: Standard Weight 204.0625 lb Height 0 in Head Circumference 0.00 cm Results Date Description Value Details [id number] Hemoglobin A1c Comments: [facility] [id number] [place], [address] HGB A1C 9.3 % (Abnormal) Range: 4.2-6.3 :41 CBC, Employee Comments: [facility] [id number] [place], [address] Absolute Lymph 2.12 {X10_3/ul} (Normal) Range: 0.83-4.51 Absolute Neut 4.8 {X10_3/uL} (Normal) Range: 2.0-7.7 BASO% 0.5 % (Normal) Range: 0-1 EO% 5.5 % (Abnormal) Range: 0-5 MONO% 6.6 % (Normal) Range: 0-10 LY% 26.5 % (Normal) Range: 19-41 NEUT% 60.0 % (Normal) Range: 47-70 MPV 10.9 fL (Normal) Range: 6.2-12.0 PLT 232 K/mm3 (Normal) Range: 150-450 RDW SD 40.2 fL (Normal) Range: 35.1-43.9 RDW CV 12.3 % (Normal) Range: 11.6-14.6 MCHC 34.1 {g/gl} (Normal) Range: 32-36 MCH 31.2 pg (Normal) Range: 27.0-32.0 MCV 91.4 fL (Normal) Range: 81-99 HCT 38.4 % (Normal) Range: 37-47 HGB 13.1 g/dL (Normal) Range: 12.0-15.0 RBC 4.20 {M/mm3} (Normal) Range: 4.2-5.4 WBC 8.0 K/mm3 (Normal) Range: 4.4-11.0 :41 Employee Profile Comments: [facility] [id number] [place], [place], [id number] LDH 226 U/L (Normal) Range: 84-246 VLDL 69 mg/dL (Abnormal) Range: 5-40 LDL 62 mg/dL (Normal) Range: 0-130 CHOL:HDL 4.60 (Normal) HDL 36 mg/dL (Abnormal) Comments: The drugs N-Acetylcysteine and Metamizole may falselydepress this assay. Reference Range HDL <40 mg/dL Low HDL Cholesterol HDL >or= 60 mg/dL High HDL Cholesterol GAP 11 (Normal) Range: 5-15 CO2 27.0 mmol/L (Normal) Range: 21.0-32.0 CL 98 mmol/L (Normal) Range: 98-107 K 4.1 mmol/L (Normal) Range: 3.5-5.1 NA 136 mmol/L (Normal) Range: 136-145 TRIG 343 mg/dL (Abnormal) Comments: The drugs N-Acetylcysteine and Metamizole may falselydepress this assay.Serum Triglycerides Reference Interval Normal <150 mg/dL Borderline high 150 - 199 mg/dL High 200 - 499 mg/dL Very High > or = 500 mg/dL CHOL 167 mg/dL (Normal) Comments: <200 mg/dL Desirable 200-240 mg/dL Borderline >240 mg/dL High Risk D BILI 0.12 mg/dL (Normal) Range: 0.00-0.30 T BILI 0.40 mg/dL (Normal) Range: 0.20-1.00 ALT 87 U/L (Abnormal) Range: 13-56 ALK P 54 U/L (Normal) Range: 45-117 AST 91 U/L (Abnormal) Range: 15-37 PHOS 3.0 mg/dL (Normal) Range: 2.5-4.9 CA 9.0 mg/dL (Normal) Range: 8.5-10.1 A/G 0.8 {RATIO} (Abnormal) Range: 0.9-2.4 GLOB 4.4 g/dL (Abnormal) Range: 2.2-4.2 ALB 3.6 g/dL (Normal) Range: 3.2-5.0 T PROT 8.0 g/dL (Normal) Range: 6.4-8.2 URIC 6.1 mg/dL (Abnormal) Range: 2.6-6.0 Comments: The drugs N-Acetylcysteine and Metamizole may falselydepress this assay. BUN/CRE 18.8 {RATIO} (Normal) Range: 10-20 EST GFR - AA 106 mL/min (Normal) Comments: GFR Calc EST GFR 88 mL/min (Normal) Comments: Non- GFR Calc CREAT,SERUM 0.80 mg/dL (Normal) Range: 0.55-1.02 Comments: The validity of the calculated GFR AND GFRAA in patients over70 years has not been determined. Clinical correlation isessential. BUN 15 mg/dL (Normal) Range: 7-18 GLU 263 mg/dL (Abnormal) Range: 74-106 Comments: Glucose result greater than or equal to 200 mg/dLsuggests DIABETES MELLITUS per A.D.A. criteria.Please note revised GLUCOSE reference range /02/2018. :41 Nicotine Urine Drug Screen Comments: [facility] [address] [place], [phone] COT DRG SCREEN Negative (Normal) Comments: Cotinine is the first-stage metabolite of Nicotine. TO BE CONFIRMED (Normal) Comments: CONFIRMATORY TESTING FOR ALL POSITIVE URINE DRUG SCREENRESULTS WILL ONLY BE SENT OUT UPON PHYSICIAN ORDER.The results of Urine Drug Screen methods provide onlypreliminary analytical test results. A more specificalternate chemical method must be used in order to obtain aconfirmed analytical result. Gas chromatography/massspectrometery (GC/MS) is the preferred confirmatory method.Clinical consideration and professional judgement should beapplied to any drug of abuse test result, particularly whenpreliminary positive results are used. :41 Urinalysis, Employee Comments: [facility] [address] [place], [phone] LEUK ESTERASE Negative /ul (Normal) OCCULT BLOOD-UR 25 /ul (Abnormal) NITRITE UR Negative (Normal) UROBILI Normal mg/dL (Normal) PROT DIPSTX 30 mg/dL (Abnormal) pH UR 5.0 (Normal) Range: 5.0 - 8.0 SP.GR. DIPSTX 1.020 (Normal) Range: 1.002-1.030 KETONE UR 5 mg/dL (Abnormal) BILIRUBIN URINE Negative mg/dL (Normal) GLUCOSE, UR 50 mg/dL (Abnormal) CLARITY Clear (Normal) COLOR Yellow (Normal) :43 Basic Metabolic Profile (BMP) Comments: [facility] [address] [place], [phone] GAP 13 (Normal) Range: 5-15 CO2 27.0 mmol/L (Normal) Range: 21.0-32.0 CL 96 mmol/L (Abnormal) Range: 98-107 K 4.2 mmol/L (Normal) Range: 3.5-5.1 NA 136 mmol/L (Normal) Range: 136-145 CA 9.4 mg/dL (Normal) Range: 8.5-10.1 BUN/CRE 14.3 {RATIO} (Normal) Range: 10-20 Estimated CRCL 74.11 ml/min (Normal) EST GFR - AA 77 mL/min (Normal) Comments: GFR Calc EST GFR 64 mL/min (Normal) Comments: Non- GFR Calc CREAT,SERUM 1.05 mg/dL (Abnormal) Range: 0.55-1.02 Comments: The validity of the calculated GFR AND GFRAA in patients over70 years has not been determined. Clinical correlation isessential. BUN 15 mg/dL (Normal) Range: 7-18 GLU 441 mg/dL (Abnormal) Range: 74-106 Comments: Glucose result greater than or equal to 200 mg/dLsuggests DIABETES MELLITUS per A.D.A. criteria.Please note revised GLUCOSE reference range /02/2018. [id number] CBC W/Diff, Automated Comments: [facility] [address] [place], [address] Absolute Lymph 2.41 {X10_3/ul} (Normal) Range: 0.83-4.51 Absolute Neut 5.2 {X10_3/uL} (Normal) Range: 2.0-7.7 IM GRAN % 0.400 % (Normal) Range: 0.0-0.9 Comments: IG% - Immature Granulocytes (promyelocytes, myelocytes andmetamyelocytes) > 1% indicates that a LEFT SHIFT is Present. BASO% 0.2 % (Normal) Range: 0-1 EO% 3.0 % (Normal) Range: 0-5 MONO% 6.9 % (Normal) Range: 0-10 LY% 28.5 % (Normal) Range: 19-41 NEUT% 61.0 % (Normal) Range: 47-70 MPV 11.5 fL (Normal) Range: 6.2-12.0 PLT 233 K/mm3 (Normal) Range: 150-450 RDW SD 41.9 fL (Normal) Range: 35.1-43.9 RDW CV 12.6 % (Normal) Range: 11.6-14.6 MCHC 34.7 {g/gl} (Normal) Range: 32-36 MCH 31.8 pg (Normal) Range: 27.0-32.0 MCV 91.6 fL (Normal) Range: 81-99 HCT 39.5 % (Normal) Range: 37-47 HGB 13.7 g/dL (Normal) Range: 12.0-15.0 RBC 4.31 {M/mm3} (Normal) Range: 4.2-5.4 WBC 8.5 K/mm3 (Normal) Range: 4.4-11.0 [id number]:43 Troponin-I Comments: [facility] [address] [place], [address] TROPONIN-I < 0.015 ng/mL (Normal) Comments: TROPONIN-I EXPECTED VALUES <0.045 Negative 0.045 - 0.590 Consistent with Cardiac Damage > OR = 0.600 Critical Value Not every elevated troponin is indicative of MN. T hesevalues should be used with clinical judgement in examiningthe patient's clinical picture for diagnosis. To establisha diagnosis of MN versus myocardial injury, there must be ademonstrated rise and/ or fall in the troponin values, inaddition to ischemic symptoms, EKG changes, new regionalwall motion abnormality, and/or angiographical evidence. PLEASE NOTE: REFERENCE RANGES EDITED 01/26/1809-Oct-201711-Ucz-[id number]:58 CBC W/Diff, Automated Comments: [facility] [address] [place], [address] Absolute Lymph 2.58 {X10_3/ul} (Normal) Range: 0.83-4.51 Absolute Neut 5.7 {X10_3/uL} (Normal) Range: 2.0-7.7 IM GRAN % 0.400 % (Normal) Range: 0.0-0.9 Comments: IG% - Immature Granulocytes (promyelocytes, myelocytes andmetamyelocytes) > 1% indicates that a LEFT SHIFT is Present. BASO% 0.8 % (Normal) Range: 0-1 EO% 2.8 % (Normal) Range: 0-5 MONO% 6.9 % (Normal) Range: 0-10 LY% 27.9 % (Normal) Range: 19-41 NEUT% 61.2 % (Normal) Range: 47-70 MPV 10.9 fL (Normal) Range: 6.2-12.0 PLT 243 K/mm3 (Normal) Range: 150-450 RDW SD 41.2 fL (Normal) Range: 35.1-43.9 RDW CV 12.8 % (Normal) Range: 11.6-14.6 MCHC 34.3 {g/gl} (Normal) Range: 32-36 MCH 30.7 pg (Normal) Range: 27.0-32.0 MCV 89.6 fL (Normal) Range: 81-99 HCT 37.9 % (Normal) Range: 37-47 HGB 13.0 g/dL (Normal) Range: 12.0-15.0 RBC 4.23 {M/mm3} (Normal) Range: 4.2-5.4 WBC 9.3 K/mm3 (Normal) Range: 4.4-11.0 [id number] Comprehensive Metabolic Profil Comments: [facility] [address] [place], [address] GAP 8 (Normal) Range: 5-15 CO2 26.0 mmol/L (Normal) Range: 21.0-32.0 CL 100 mmol/L (Normal) Range: 98-107 K 4.4 mmol/L (Normal) Range: 3.5-5.1 NA 134 mmol/L (Abnormal) Range: 136-145 T BILI 0.20 mg/dL (Normal) Range: 0.20-1.00 ALT 35 U/L (Normal) Range: 12-78 ALK P 51 U/L (Normal) Range: 45-117 AST 21 U/L (Normal) Range: 15-37 CA 8.6 mg/dL (Normal) Range: 8.5-10.1 A/G 0.7 {RATIO} (Abnormal) Range: 0.9-2.4 GLOB 4.6 g/dL (Abnormal) Range: 2.2-4.2 ALB 3.4 g/dL (Normal) Range: 3.4-5.0 Comments: Please note revised Albumin AND Globulin reference rangeeffective 2017. T PROT 8.0 g/dL (Normal) Range: 6.4-8.2 BUN/CRE 14.1 {RATIO} (Normal) Range: 10-20 EST GFR - AA 90 mL/min (Normal) Comments: GFR Calc EST GFR 74 mL/min (Normal) Comments: Non- GFR Calc CREAT,SERUM 0.92 mg/dL (Normal) Range: 0.55-1.02 Comments: The validity of the calculated GFR AND GFRAA in patients over70 years has not been determined. Clinical correlation isessential. BUN 13 mg/dL (Normal) Range: 7-18 GLU 255 mg/dL (Abnormal) Range: 70-110 Comments: Glucose result greater than or equal to 200 mg/dLsuggests DIABETES MELLITUS per A.D.A. criteria. [id number] Free T3 Comments: [facility] [address] [place], [place], [phone] FREE T3 2.2 pg/mL (Normal) Range: 2.18-3.98 85-Ron-[id number]:58 Hemoglobin A1c Comments: [address] [place], [address] HGB A1C 7.9 % (Abnormal) Range: 4.2-6.3 49-Tmi-[id number]:58 Lipid Profile Comments: [facility] [address] [place], [place], [phone] VLDL Test not performed mg/dL (Normal) Range: 5-40 LDL Test not performed mg/dL (Normal) Range: 0-130 HDL 31 mg/dL (Abnormal) Comments: The drugs N-Acetylcysteine and Metamizole may falselydepress this assay. Reference Range HDL <40 mg/dL Low HDL Cholesterol HDL >or= 60 mg/dL High HDL Cholesterol TRIG 405 mg/dL (Abnormal) Comments: The drugs N-Acetylcysteine and Metamizole may falselydepress this assay.TRIGLYCERIDE IS GREATER THAN 400 mg/dL.LDL RESULT IS INVALID AND WILL NOT BE REPORTED.Serum Triglycerides Referenc e Interval Normal <150 mg/dL Borderline high 150 - 199 mg/dL High 200 - 499 mg/dL Very High > or = 500 mg/dL CHOL 151 mg/dL (Normal) Comments: <200 mg/dL Desirable 200-240 mg/dL Borderline >240 mg/dL High Risk 03-[id number]:58 T4 Free Direct Comments: [facility] [address] [place], [place], [phone] T4 FREE DIRECT 0.99 ng/dL (Normal) Range: 0.76-1.46 46-[id number]:58 Thyroid Stim Hormone (TSH) Comments: [facility] [address] [place], [phone] TSH 3.03 {uIU/mL} Range: 0.358-3.74 (Normal) 05-Pyb-35206:3 ASPIRATION (SLIDES ONLY) See Note (Normal) Comments: [facility] [address] [place], [id number] 0 Comments: Patient: KIMBERLY REIS : 1985 (31/F) Acct Num: [id number] Phys: Jluis CHEN,Jasen Unit Num: [id number] Loc: [facility]SPEC Specimen: [id number] Received: 07/08/171722 Spec Type: ASPIRATION TISSUES TISSUES: COMMENT Immediate cytologic evaluation to determine adequacy is not applicable. CYTOLOGY GROSS Received are 12 smears labeled with the patient' s name and designated per the requisition as FNA left thyroid. Submitted for staining. /MARY:caitlin 07/10/17 TC: 5 CPT: 76501 CYTOLOGY STUDY Slides are reviewed. DIAGNOSIS CYTOLOGY Fine n eedle aspiration, left thyroid nodule (smears): Adequate for evaluation. Negative, consistent with benign follicular nodule. AM:sp 07/10/17 HEADER OPERATION: Ultrasound guided fine needle aspiration, left thyroid PRE-OP DIAGNOSIS: Thyroid nodule, E04.1 TISSUE SUBMITTED: Fine needle aspiration, left thyroid Signed Thelma [facility] 07/10/17 <signature on file> :20 Hep B Surface Antibodies EMP Comments: [facility] (refer to report for specific site)refer to report for address and phone number Hep B Court AB Reactive (Normal) Comments: Non Reactive: Inconsistent with immunity, less than 10 mIU/mL Reactive: Consistent with immunity, greater than 9.9 mIU/mL 67-[id number]:20 Hepatitis B Surface Ag Comments: [facility] (refer to report for specific site)refer to report for address and phone number HB SURF AG Negative (Normal) Comments: Performed at: - [facility] [address] [id number] Director: Chris Glover PhD, Phone: [phone] :20 Hepatitis C Antibodies Comments: [facility] (refer to report for specific site)refer to report for address and phone number HEP C AB <0.1 {s/co_ratio} (Normal) Range: 0.0-0.9 Comments: Negative: < 0.8 Indeterminate: 0.8 - 0.9 Positive: > 0.9 The CDC recommends that a positive HCV antibody result be followed up with a HCV Nucleic Acid Amplification test (294564). :20 HIV 1/O/2 EXP w/ Conf Comments: [facility] (refer to report for specific site)refer to report for address and phone number HIV1/0/2 SCREEN Non Reactive (Normal) :01 Free T3 Comments: Has Patient had X-rays with Contrast this admission? NIs Patient on Heparin? [facility] [address] [place] [address], [phone] FREE T3 2.4 pg/mL (Normal) Range: 2.18-3.98 :01 Hemoglobin A1c Comments: [facility] [address] [place] [address], [phone] HGB A1C 8.1 % (Abnormal) Range: 4.2-6.3 : T4 Free Direct Comments: Has Patient had X-rays with Contrast this admission? NIs Patient on Heparin? [facility] [address] [place] [address], [phone] T4 FREE DIRECT 1.19 ng/dL (Normal) Range: 0.76-1.46 : Thyroid Stim Hormone (TSH) Comments: Has Patient had X-rays with Contrast this admission? NIs Patient on Heparin? [facility] [address] [place] [address], [phone] TSH 2.35 {uIU/mL} (Normal) Range: 0.358-3.74 :28 CBC, Employee Comments: [facility] [address] [place], [address] Absolute Lymph 2.11 {X10_3/ul} (Normal) Range: 0.83-4.51 Absolute Neut 4.6 {X10_3/uL} (Normal) Range: 2.0-7.7 BASO% 0.3 % (Normal) Range: 0-1 EO% 4.7 % (Normal) Range: 0-5 MONO% 7.2 % (Normal) Range: 0-10 LY% 27.7 % (Normal) Range: 19-41 NEUT% 59.8 % (Normal) Range: 47-70 MPV 10.3 fL (Normal) Range: 6.2-12.0 PLT 261 K/mm3 (Normal) Range: 150-450 RDW SD 41.4 fL (Normal) Range: 35.1-43.9 RDW CV 12.5 % (Normal) Range: 11.6-14.6 MCHC 33.1 {g/gl} (Normal) Range: 32-36 MCH 30.0 pg (Normal) Range: 27.0-32.0 MCV 90.6 fL (Normal) Range: 81-99 HCT 39.3 % (Normal) Range: 37-47 HGB 13.0 g/dL (Normal) Range: 12.0-15.0 RBC 4.34 {M/mm3} (Normal) Range: 4.2-5.4 WBC 7.6 K/mm3 (Normal) Range: 4.4-11.0 58-Qra-[id number]:28 Employee Profile Comments: [facility] [address] [place], [place], [phone] LDH 191 U/L (Normal) Range: 84-246 VLDL 28 mg/dL (Normal) Range: 5-40 LDL 92 mg/dL (Normal) Range: 0-130 CHOL:HDL 4.10 (Normal) HDL 39 mg/dL (Abnormal) Comments: The drugs N-Acetylcysteine and Metamizole may falselydepress this assay. Reference Range HDL <40 mg/dL Low HDL Cholesterol HDL >or= 60 mg/dL High HDL Cholesterol GAP 5 (Normal) Range: 5-15 CO2 28.0 mmol/L (Normal) Range: 21.0-32.0 CL 107 mmol/L (Normal) Range: 98-107 K 4.2 mmol/L (Normal) Range: 3.5-5.1 NA 140 mmol/L (Normal) Range: 136-145 TRIG 141 mg/dL (Normal) Comments: The drugs N-Acetylcysteine and Metamizole may falselydepress this assay.Serum Triglycerides Reference Interval Normal <150 mg/dL Borderline high 150 - 199 mg/dL High 200 - 499 mg/dL Very High > or = 500 mg/dL CHOL 159 mg/dL (Normal) Comments: <200 mg/dL Desirable 200-240 mg/dL Borderline >240 mg/dL High Risk D BILI 0.10 mg/dL (Normal) Range: 0.00-0.30 T BILI 0.40 mg/dL (Normal) Range: 0.20-1.00 ALT 59 U/L (Normal) Range: 12-78 ALK P 59 U/L (Normal) Range: 45-117 AST 38 U/L (Abnormal) Range: 15-37 PHOS 2.9 mg/dL (Normal) Range: 2.5-4.9 CA 8.8 mg/dL (Normal) Range: 8.5-10.1 A/G 0.8 {RATIO} (Abnormal) Range: 0.9-2.4 GLOB 4.5 g/dL (Abnormal) Range: 2.3-3.5 ALB 3.5 g/dL (Normal) Range: 3.4-5.0 T PROT 8.0 g/dL (Normal) Range: 6.4-8.2 URIC 6.5 mg/dL (Abnormal) Range: 2.6-6.0 Comments: The drugs N-Acetylcysteine and Metamizole may falselydepress this assay. BUN/CRE 9.6 {RATIO} (Abnormal) Range: 10-20 EST GFR - AA 102 mL/min (Normal) Comments: GFR Calc EST GFR 84 mL/min (Normal) Comments: Non- GFR Calc CREAT,SERUM 0.83 mg/dL (Normal) Range: 0.55-1.02 Comments: The validity of the calculated GFR AND GFRAA in patients over70 years has not been determined. Clinical correlation isessential. BUN 8 mg/dL (Normal) Range: 7-18 GLU 139 mg/dL (Abnormal) Range: 70-110 Comments: Fasting Glucose result greater than or equal to 126 mg/dLsuggests DIABETES MELLITUS per A.D.A. criteria. :28 Nicotine Urine Drug Screen Comments: [place] [address] [place], [phone] COT DRG SCREEN Negative (Normal) Comments: Cotinine is the first-stage metabolite of Nicotine. TO BE CONFIRMED (Normal) Comments: CONFIRMATORY TESTING FOR ALL POSITIVE URINE DRUG SCREENRESULTS WILL ONLY BE SENT OUT UPON PHYSICIAN ORDER.The results of Urine Drug Screen methods provide onlypreliminary analytical test results. A more specificalternate chemical method must be used in order to obtain aconfirmed analytical result. Gas chromatography/massspectrometery (GC/MS) is the preferred confirmatory method.Clinical consideration and professional judgement should beapplied to any drug of abuse test result, particularly whenpreliminary positive results are used. :28 Urinalysis, Employee Comments: [address] [place], [place], [phone] LEUK ESTERASE Negative /ul (Normal) OCCULT BLOOD-UR 25 /ul (Abnormal) NITRITE UR Negative (Normal) UROBILI Normal mg/dL (Normal) PROT DIPSTX Negative mg/dL (Normal) pH UR 6.0 (Normal) Range: 5.0 - 8.0 SP.GR. DIPSTX 1.015 (Normal) Range: 1.002-1.030 KETONE UR Negative mg/dL (Normal) BILIRUBIN URINE Negative mg/dL (Normal) GLUCOSE, UR Normal mg/dL (Normal) CLARITY Sl. Cloudy (Normal) COLOR Yellow (Normal) :12 Free T3 Comments: [address] [place], [phone] FREE T3 2.1 pg/mL (Abnormal) Range: 2.18-3.98 :12 Protein Electro.Ur-Random Comments: [facility] (refer to report for specific site)refer to report for address and phone number NOTE Comment (Normal) Comments: Protein electrophoresis scan will follow via computer,mail, or pre press manager delivery.Performed at: [facility] [place] [employer] [id number] Director: Chris Glover PhD, Phone: [phone] M-SPIKE,U % (Normal) Comments: Not Observed GAMMA GLOB,U 23.9 % (Normal) BETA GLOB,U 19.7 % (Normal) ISFCL-2-AGZP,U 10.0 % (Normal) BCEUT-5-NNQT,U 1.3 % (Normal) ALBUMIN,UR 45.1 % (Normal) PROTEIN,UR 20.4 mg/dL (Normal) :12 Protein Electroph, S Comments: [facility] (refer to report for specific site)refer to report for address and phone number NOTE: Comment (Normal) Comments: The SPE pattern appears essentially unremarkable. Evidenceof monoclonal protein is not apparent.Performed at: [facility] [employer] [id number] Director: Chris Glover PhD, Phone: [phone] INTERPRETATION Comment (Normal) Comments: Protein electrophoresis scan will follow via computer,mail, or pre press manager delivery. A/G RATIO 0.9 (Normal) Range: 0.7-1.7 GLOBULIN, TOTAL 3.9 g/dL (Normal) Range: 2.2-3.9 M-SPIKE g/dL (Normal) Comments: Not Observed GAMMA GLOBULIN 1.7 g/dL (Normal) Range: 0.4-1.8 BETA GLOBULIN 1.3 g/dL (Normal) Range: 0.7-1.3 ALPHA-2 GLOBUL 0.6 g/dL (Normal) Range: 0.4-1.0 ALPHA-1 GLOBUL 0.2 g/dL (Normal) Range: 0.0-0.4 ALBUMIN 3.5 g/dL (Normal) Range: 2.9-4.4 PROTEIN,TOTAL 7.4 g/dL (Normal) Range: 6.0-8.5 :12 T4 Free Direct Comments: [facility] [address] [place], [place], [phone] T4 FREE DIRECT 1.14 ng/dL (Normal) Range: 0.76-1.46 :12 Thyroid Stim Hormone (TSH) Comments: [facility] [address] [place], [place], [phone] TSH 2.51 {uIU/mL} (Normal) Range: 0.358-3.74 :31 HgA1C , Office (05508) HgA1C , Office 7.9 % (Abnormal) Range: 4.6 - 7.1 :30 Blood Glucose , Office (80569) Blood Glucose , Office 192 (Normal) :33 CBC, Employee Comments: [facility] [address] [place], [place], [phone] Absolute Lymph 2.19 {X10_3/ul} (Normal) Range: 0.83-4.51 Absolute Neut 4.7 {X10_3/uL} (Normal) Range: 2.0-7.7 BASO% 0.6 % (Normal) Range: 0-1 EO% 2.8 % (Normal) Range: 0-5 MONO% 6.9 % (Normal) Range: 0-10 LY% 28.4 % (Normal) Range: 19-41 NEUT% 60.9 % (Normal) Range: 47-70 MPV 10.8 fL (Normal) Range: 6.2-12.0 PLT 261 K/mm3 (Normal) Range: 150-450 RDW SD 40.6 fL (Normal) Range: 35.1-43.9 RDW CV 12.5 % (Normal) Range: 11.6-14.6 MCHC 33.9 {g/gl} (Normal) Range: 32-36 MCH 30.5 pg (Normal) Range: 27.0-32.0 MCV 89.8 fL (Normal) Range: 81-99 HCT 39.8 % (Normal) Range: 37-47 HGB 13.5 g/dL (Normal) Range: 12.0-15.0 RBC 4.43 {M/mm3} (Normal) Range: 4.2-5.4 WBC 7.7 K/mm3 (Normal) Range: 4.4-11.0 :33 Employee Profile Comments: [facility] [address] [place], [place], [phone] LDH 208 U/L (Normal) Range: 84-246 VLDL 38 mg/dL (Normal) Range: 5-40 LDL 74 mg/dL (Normal) Range: 0-130 CHOL:HDL 3.70 (Normal) HDL 42 mg/dL (Normal) Comments: The drugs N-Acetylcysteine and Metamizole may falsely deressthis assay. Reference Range HDL <40 mg/dL Low HDL Cholesterol HDL >or= 60 mg/dL High HDL Cholesterol GAP 8 (Normal) Range: 5-15 CO2 25.0 mmol/L (Normal) Range: 21.0-32.0 CL 102 mmol/L (Normal) Range: 98-107 K 4.4 mmol/L (Normal) Range: 3.5-5.1 NA 135 mmol/L (Abnormal) Range: 136-145 TRIG 191 mg/dL (Normal) Comments: The drugs N-Acetylcysteine and Metamizole may falsely deressthis assay.Serum Triglycerides Reference Interval Normal <150 mg/dL Borderline high 150 - 199 mg/dL High 200 - 499 mg/dL Very High > or = 500 mg/dL CHOL 154 mg/dL (Normal) Comments: <200 mg/dL Desirable 200-240 mg/dL Borderline >240 mg/dL High Risk D BILI 0.08 mg/dL (Normal) Range: 0.00-0.30 T BILI 0.40 mg/dL (Normal) Range: 0.20-1.00 ALT 30 U/L (Normal) Range: 12-78 ALK P 55 U/L (Normal) Range: 50-136 AST 53 U/L (Abnormal) Range: 15-37 PHOS 3.1 mg/dL (Normal) Range: 2.5-4.9 CA 8.8 mg/dL (Normal) Range: 8.5-10.1 A/G 0.7 {RATIO} (Abnormal) Range: 0.9-2.4 GLOB 4.6 g/dL (Abnormal) Range: 2.3-3.5 ALB 3.0 g/dL (Abnormal) Range: 3.4-5.0 T PROT 7.6 g/dL (Normal) Range: 6.4-8.2 URIC 4.7 mg/dL (Normal) Range: 2.6-6.0 Comments: The drugs N-Acetylcysteine and Metamizole may falsely deressthis assay. BUN/CRE 15.4 {RATIO} (Normal) Range: 10-20 EST GFR - AA 101 mL/min (Normal) Comments: GFR Calc EST GFR 83 mL/min (Normal) Comments: Non- GFR Calc CREAT,SERUM 0.85 mg/dL (Normal) Range: 0.55-1.20 Comments: The validity of the calculated GFR AND GFRAA in patients over70 years has not been determined. Clinical correlation isessential. BUN 13 mg/dL (Normal) Range: 7-18 GLU 197 mg/dL (Abnormal) Range: 70-110 Comments: Fasting Glucose result greater than or equal to 126 mg/dLsuggests DIABETES MELLITUS per A.D.A. criteria. :33 Nicotine Urine Drug Screen Comments: [facility] [address] [facility] [place], [address] COT DRG SCREEN Negative (Normal) Comments: Cotinine is the first-stage metabolite of Nicotine. TO BE CONFIRMED (Normal) Comments: CONFIRMATORY TESTING FOR ALL POSITIVE URINE DRUG SCREENRESULTS WILL ONLY BE SENT OUT UPON PHYSICIAN ORDER.The results of Urine Drug Screen methods provide onlypreliminary analytical test results. A more specificalternate chemical method must be used in order to obtain aconfirmed analytical result. Gas chromatography/massspectrometery (GC/MS) is the preferred confirmatory method.Clinical consideration and professional judgement should beapplied to any drug of abuse test result, particularly whenpreliminary positive results are used. :33 Urinalysis, Employee Comments: How was Urine Obtained? [facility] [address] [facility] [address] [place], [place], [id number] LEUK ESTERASE 25 /ul (Abnormal) OCCULT BLOOD-UR 25 /ul (Abnormal) NITRITE UR Negative (Normal) UROBILI Normal mg/dL (Normal) PROT DIPSTX 30 mg/dL (Abnormal) pH UR 6.0 (Normal) Range: 5.0 - 8.0 SP.GR. DIPSTX 1.020 (Normal) Range: 1.002-1.030 KETONE UR Negative mg/dL (Normal) BILIRUBIN URINE Negative mg/dL (Normal) GLUCOSE, UR Normal mg/dL (Normal) CLARITY Clear (Normal) COLOR Yellow (Normal) :35 Basic Metabolic Profile (BMP) Comments: 'TROP' Serial specimen #1, #2, #3, or #4: 1[facility] [address] [place], [place], [id number] GAP 8 (Normal) Range: 5-15 CO2 27.0 mmol/L (Normal) Range: 21.0-32.0 CL 104 mmol/L (Normal) Range: 98-107 K 4.0 mmol/L (Normal) Range: 3.5-5.1 NA 139 mmol/L (Normal) Range: 136-145 CA 8.8 mg/dL (Normal) Range: 8.5-10.1 BUN/CRE 14.3 {RATIO} (Normal) Range: 10-20 Estimated CRCL 87.11 ml/min (Normal) EST GFR - AA 92 mL/min (Normal) Comments: GFR Calc EST GFR 76 mL/min (Normal) Comments: Non- GFR Calc CREAT,SERUM 0.91 mg/dL (Normal) Range: 0.55-1.20 Comments: The validity of the calculated GFR AND GFRAA in patients over70 years has not been determined. Clinical correlation isessential. BUN 13 mg/dL (Normal) Range: 7-18 GLU 303 mg/dL (Abnormal) Range: 70-110 Comments: Glucose result greater than or equal to 200 mg/dLsuggests DIABETES MELLITUS per A.D.A. criteria. :35 CBC W/Diff, Automated Comments: [facility] [address] [place], [place], [id number] Absolute Lymph 2.50 {X10_3/ul} (Normal) Range: 0.83-4.51 Absolute Neut 4.6 {X10_3/uL} (Normal) Range: 2.0-7.7 IM GRAN % 0.400 % (Normal) Range: 0.0-0.9 Comments: IG% - Immature Granulocytes (promyelocytes, myelocytes andmetamyelocytes) > 1% indicates that a LEFT SHIFT is Present. BASO% 0.6 % (Normal) Range: 0-1 EO% 2.7 % (Normal) Range: 0-5 MONO% 5.5 % (Normal) Range: 0-10 LY% 32.1 % (Normal) Range: 19-41 NEUT% 58.7 % (Normal) Range: 47-70 MPV 10.5 fL (Normal) Range: 6.2-12.0 PLT 242 K/mm3 (Normal) Range: 150-450 RDW SD 41.4 fL (Normal) Range: 35.1-43.9 RDW CV 12.8 % (Normal) Range: 11.6-14.6 MCHC 33.4 {g/gl} (Normal) Range: 32-36 MCH 29.9 pg (Normal) Range: 27.0-32.0 MCV 89.5 fL (Normal) Range: 81-99 HCT 37.7 % (Normal) Range: 37-47 HGB 12.6 g/dL (Normal) Range: 12.0-15.0 RBC 4.21 {M/mm3} (Normal) Range: 4.2-5.4 WBC 7.8 K/mm3 (Normal) Range: 4.4-11.0 [id number] Thyroid Stim Hormone (TSH) Comments: 'TROP' Serial specimen #1, #2, #3, or #4: [address] [place] [address] [id number] [place], [address] ; managed by Lottie Hou TSH 8.11 {uIU/mL} (Abnormal) Range: 0.358-3.74 :35 Troponin-I Comments: 'TROP' Serial specimen #1, #2, #3, or #4: [address] [place] [address] [id number] [place], [address] TROPONIN-I < 0.02 ng/mL (Normal) Comments: TROPONIN-I EXPECTED VALUES <0.05 NEGATIVE 0.06 - 0.59 AT RISK OF MN > OR = 0.60 SUGGEST MN [id number] CBC, Employee Comments: Test performed at:[facility] [address] [place] [address] Absolute Lymph 2.38 {X10_3/ul} (Normal) Range: 0.83-4.51 Absolute Neut 6.1 {X10_3/uL} (Normal) Range: 2.0-7.7 BASO% 0.5 % (Normal) Range: 0-1 EO% 2.5 % (Normal) Range: 0-5 MONO% 5.1 % (Normal) Range: 0-10 LY% 25.7 % (Normal) Range: 19-41 NEUT% 66.1 % (Normal) Range: 47-70 MPV 10.3 fL (Normal) Range: 6.2-12.0 PLT 304 K/mm3 (Normal) Range: 150-450 RDW SD 42.9 fL (Normal) Range: 35.1-43.9 RDW CV 13.0 % (Normal) Range: 11.6-14.6 MCHC 33.3 {g/gl} (Normal) Range: 32-36 MCH 30.5 pg (Normal) Range: 27.0-32.0 MCV 91.4 fL (Normal) Range: 81-99 HCT 39.3 % (Normal) Range: 37-47 HGB 13.1 g/dL (Normal) Range: 12.0-15.0 RBC 4.30 {M/mm3} (Normal) Range: 4.2-5.4 WBC 9.3 K/mm3 (Normal) Range: 4.4-11.0 [id number]:14 Employee Profile Comments: Test performed at:[facility] [address] [place], [place] [address] LDH 215 U/L (Normal) Range: 84-246 VLDL 34 mg/dL (Normal) Range: 5-40 LDL 82 mg/dL (Normal) Range: 0-130 HDLEMP 36 mg/dL (Normal) Comments: Reference Range HDL <40 mg/dL Low HDL Cholesterol HDL >or= 60 mg/dL High HDL Cholesterol HDL 36 mg/dL (Abnormal) Comments: Reference Range HDL <40 mg/dL Low HDL Cholesterol HDL >or= 60 mg/dL High HDL Cholesterol GAP 7 (Normal) Range: 5-15 CO2 28.0 mmol/L (Normal) Range: 21.0-32.0 CL 102 mmol/L (Normal) Range: 98-107 K 4.1 mmol/L (Normal) Range: 3.5-5.1 NA 137 mmol/L (Normal) Range: 136-145 TRIG 171 mg/dL (Normal) Comments: Serum Triglycerides Reference Interval Normal <150 mg/dL Borderline high 150 - 199 mg/dL High 200 - 499 mg/dL Very High > or = 500 mg/dL CHOL 152 mg/dL (Normal) Comments: <200 mg/dL Desirable 200-240 mg/dL Borderline >240 mg/dL High Risk D BILI 0.08 mg/dL (Normal) Range: 0.00-0.30 T BILI 0.40 mg/dL (Normal) Range: 0.20-1.00 ALT 59 U/L (Normal) Range: 12-78 ALK P 54 U/L (Normal) Range: 50-136 AST 41 U/L (Abnormal) Range: 15-37 PHOS 4.3 mg/dL (Normal) Range: 2.5-4.9 CA 9.4 mg/dL (Normal) Range: 8.5-10.1 A/G 0.8 {RATIO} (Abnormal) Range: 0.9-2.4 GLOB 4.4 g/dL (Abnormal) Range: 2.3-3.5 ALB 3.7 g/dL (Normal) Range: 3.4-5.0 T PROT 8.1 g/dL (Normal) Range: 6.4-8.2 URIC 6.8 mg/dL (Abnormal) Range: 2.6-6.0 BUN/CRE 12.6 {RATIO} (Normal) Range: 10-20 EST GFR - AA 88 mL/min (Normal) EST GFR 73 mL/min (Normal) CREAT,SERUM 0.95 mg/dL (Normal) Range: 0.55-1.20 Comments: The validity of the calculated GFR AND GFRAA in patients over70 years has not been determined. Clinical correlation isessential. BUN 12 mg/dL (Normal) Range: 7-18 GLU 121 mg/dL (Abnormal) Range: 70-110 Comments: Fasting Glucose result from 110 to <126 mg/dLsuggests IMPAIRED HOMEOSTASIS per A.D.A. criteria. [id number] Hemoglobin A1c Comments: Test performed at:[facility] [address] [place] [address] HGB A1C 6.3 % (Normal) Range: 4.2-6.3 20-[id number]:14 Miscellaneous Lab Procedure Comments: Comments: [id number] ISLET CELL AB,SST,REFRIGERATETest(s) Ordered: [id number] ISLET CELL AB,SST,REFRIGERATETest performed at:[facility] [address] [place] [address] MISC Comments: TEST RESULT UNITS REFERENCE INTERVALAntipancreatic Islet Cells Negative Neg:<1:1 TESTING LAB (Normal) PERFORMED AT [facility]. ORIGINAL REPORT ON FILE IN LAB CONTAINS ADDITIONAL TEST SITE INFORMATION. TEST [id number] Thyroid Stim Hormone (TSH) Comments: Test performed at:[facility] [address] [facility] [place] [address] TSH 3.12 {uIU/mL} (Normal) Range: 0.358-3.74 [id number] Urinalysis, Employee Comments: Test performed at:[facility] [address] [place] [address] LEUK ESTERASE Negative /ul (Normal) OCCULT BLOOD-UR 150 /ul (Abnormal) NITRITE UR Negative (Normal) UROBILI Normal mg/dL (Normal) PROT DIPSTX Negative mg/dL (Normal) pH UR 5.0 (Normal) Range: 5.0 - 8.0 SP.GR. DIPSTX 1.025 (Normal) Range: 1.002-1.030 KETONE UR Negative mg/dL (Normal) BILIRUBIN URINE Negative mg/dL (Normal) GLUCOSE, UR Normal mg/dL (Normal) CLARITY Clear (Normal) COLOR Yellow (Normal) 43-Uxr-[id number]:01 HgA1C , Office (87006) HgA1C , Office 6.8 % (Normal) Range: 4.6 - 7.1 :54 HgA1C , Office (59924) HgA1C , Office 6.5 % (Normal) Range: 4.6 - 7.1 :44 ABORH BLOOD TYPE GEL A NEGATIVE (Normal) :44 ABS SCREEN CELL II NEGATIVE (Normal) SCREEN CELL III NEGATIVE (Normal) SCREEN CELL I NEGATIVE (Normal) Ab SCREEN GEL NEGATIVE (Normal) :44 CBCD ANC 6.0 3/uL (Normal) Range: 2.0-7.7 IG# 0.030 3/ul (Abnormal) Range: 0.0-0.0 IG% 0.40 % (Abnormal) Range: 0.0-0.0 B% 0.2 % (Normal) Range: 0-1 E% 1.2 % (Normal) Range: 0-5 M% 5.3 % (Normal) Range: 0-10 L% 22.2 % (Normal) Range: 19-41 N% 70.7 % (Abnormal) Range: 47-70 MPV 10.2 fL (Normal) Range: 6.2-12.0 PLT 248 K/mm3 (Normal) Range: 150-450 RDWSD 43.1 fL (Normal) Range: 35.1-43.9 RDWCV 13.1 % (Normal) Range: 11.6-14.6 MCHC 33.6 g/dL (Normal) Range: 32-36 MCH 30.8 pg (Normal) Range: 27.0-32.0 MCV 91.7 fL (Normal) Range: 81-99 HCT 35.4 % (Abnormal) Range: 37-47 HGB 11.9 g/dL (Abnormal) Range: 12.0-15.0 RBC 3.86 {M/mm3} (Abnormal) Range: 4.2-5.4 WBC 8.5 {k/mm3} (Normal) Range: 4.4-11.0 :44 CMP GAP 9 (Normal) Range: 5-15 CL 105 mmol/L (Normal) Range: 98-107 CO2 25.0 mmol/L (Normal) Range: 21.0-32.0 K 3.9 mmol/L (Normal) Range: 3.5-5.1 NA 139 mmol/L (Normal) Range: 136-145 ALT 30 U/L (Normal) Range: 12-78 BIT 0.30 mg/dL (Normal) Range: 0.00-1.00 ALK 45 U/L (Abnormal) Range: 50-136 AST 21 U/L (Normal) Range: 15-37 CA 8.8 mg/dL (Normal) Range: 8.5-10.1 AG 1.0 {RATIO} (Normal) Range: 0.9-2.4 GLOB 3.7 g/dL (Normal) Range: 2.7-4.2 ALB 3.6 g/dL (Normal) Range: 3.4-5.0 TPROT 7.3 g/dL (Normal) Range: 6.4-8.2 BC 13.3 {RATIO} (Normal) Range: 10-20 GFRAA 97 mL/min (Normal) GFR 80 mL/min (Normal) BUN 12 mg/dL (Normal) Range: 7-18 CREAT 0.9 mg/dL (Normal) Range: 0.6-1.0 GLU 103 mg/dL (Normal) Range: 70-110 :44 CUUR URC See Note {CFU/mL} (Normal) Comments: COLONY COUNT 50,000- 80,000 ORGANISM 1: STREPTOCOCCUS AGALACTIAE (B) STREPTOCOCCUS AGALACTIAE (B): REACTIONAMPICILLIN $$ <=0.25 SBENZY LPENICILLIN - <=0.12 SCLINDAMYCIN $$ 1 RERYTHROMYCIN $$ 4 ILEVOFLOXACIN $ 2 SLINE ZOLID $$$ 2 SQUINUPRISTIN/DALFOPRI (NF) $$$ <=0.25 SVANCOMYCIN $ <=0.5 S :44 HEBSAG ttHEBSAG Negative (Normal) Comments: Performed at: [address] [id number] Director: Braden Arguello PhD, Phone: [phone] :[phone] LDH 224 U/L (Normal) Range: 87-241 :44 PT INR 1.2 (Normal) PTP 14.1 s (Normal) Range: 11.9-14.4 :44 PTT PTTP 32.9 s (Normal) Range: 24.1-36.2 :44 RPR NONREACTIVE (Normal) :44 RUBG 55.5 {IU/mL} (Normal) Comments: Reference IntervalValue <5.0 IU/mL NEGATIVE for Rubella IgG AntibodiesValue > or = 5.0 IU/mL and < or = 9.9 IU/mL: EQUIVOCAL forValue > or = 10.0 IU/mL: POSITIVE for Rubella IgG AntiboiesEffective 2012:44 URIC 6.2 mg/dL (Abnormal) Range: 2.6-6.0 :44 VIAB tHIVABSQUL Non Reactive (Normal) tHIVINDVAL < 1.00 (Normal) Comments: Index Value: Specimen reactivity relative to the negativecutoff. :24 CMP CO2 25.0 mmol/L (Normal) Range: 21.0-32.0 GAP 10 (Normal) Range: 5-15 CL 103 mmol/L (Normal) Range: 98-107 BIT 0.30 mg/dL (Normal) Range: 0.00-1.00 K 4.0 mmol/L (Normal) Range: 3.5-5.1 NA 138 mmol/L (Normal) Range: 136-145 ALT 27 U/L (Normal) Range: 12-78 ALK 43 U/L (Abnormal) Range: 50-136 AST 17 U/L (Normal) Range: 15-37 CA 8.7 mg/dL (Normal) Range: 8.5-10.1 AG 0.9 {RATIO} (Normal) Range: 0.9-2.4 ALB 3.6 g/dL (Normal) Range: 3.4-5.0 GLOB 3.8 g/dL (Normal) Range: 2.7-4.2 TPROT 7.4 g/dL (Normal) Range: 6.4-8.2 BC 10.0 {RATIO} (Normal) Range: 10-20 GFRAA 86 mL/min (Normal) GFR 71 mL/min (Normal) CREAT 1.0 mg/dL (Normal) Range: 0.6-1.0 BUN 10 mg/dL (Normal) Range: 7-18 GLU 149 mg/dL (Abnormal) Range: 70-110 Comments: Fasting Glucose result greater than or equal to 126 mg/dL suggests DIABETES MELLITUS per A.D.A. criteria. :24 HCGT 844 m[iU]/mL (Abnormal) Comments: RESULTS FAXED 10/28/12 0755 [address] FISHER. :24 PREGS Comments: RESULTS FAXED 10/28/12 [facility]5 BALDOMERO FISHER. tPREGS POSITIVE {Negative} Range: 0-9 Nonpreg (Abnormal) Comments: TEST is *POSITIVE* :24 TSH 3.69 {uIU/mL} (Normal) Range: 0.358-3.74 :31 HCGT 435 m[iU]/mL (Abnormal) :10 TSH 3.68 {uIU/mL} (Normal) Range: 0.358-3.74 :35 CRP < 2.90 mg/L (Normal) Range: 0.0-3.0 Comments: C-Reactive Protein (CRP) provides useful information for thediagnosis, therapy and monitoring of inflammatory processesand associated diseases. For the evaluation of Relative Riskfor Cardiovascular Dise ase, a High Sensitivity CRP (HSCRP)should be ordered. :35 SED tSEDRATE 9 mm/h (Normal) Range: 0-20 :37 CUUR URC See Note {CFU/mL} (Normal) Comments: COLONY COUNT 1000- 10,000 ORGANISM 1: MIXED GRAM POSITIVE ORGANISMS :37 MIACRE tMICROCREAT 20.6 {mg/g_CRE} (Normal) MIALB 27.1 mg/L (Normal) CREU 131.4 mg/dL (Normal) :37 UA DIOR NEGATIVE (Normal) UOB 2+ (Abnormal) CATIE NEGATIVE (Normal) UROBU 0.2 EU/dl (Normal) Range: 0.2 - 1.0 uPROTU NEGATIVE (Normal) TACO 5.5 (Normal) Range: 5.0-8.0 SGU 1.025 (Normal) Range: 1.002-1.030 KETU NEGATIVE mg/dL (Normal) BILIU NEGATIVE (Normal) GLUR NEGATIVE (Normal) UCLAR CLEAR (Normal) UCOL YELLOW (Normal) 96-Urg-52785:00 SOFT TISSUE NECK WITH CONTRAST Radiology Report See Note (Normal) Comments: PROCEDURE: CT SOFT TISSUE NECK WITH CONTRAST REASON FOR EXAM: Female, 26 years old. Possible left tonsillarabscess. TECHNIQUE: The patient was scanned in a multi-detector CT scanner.Highresolutio n transaxial imaging was performed following intravenousadministration of 75ML ml of Isovue 300 contrast material. Sagittal andcoronal images were reconstructed. COMPARISON: None. FINDINGS:Normal reji ateral parotid glands. Normal bilateral all round logger spaces.Normal bilateral parapharyngeal spaces. Normal bilateral carotid spaces. Normal bilateral sublingual and submandibular glands and spaces. Norm al visualized nasopharynx. Normal retropharyngeal space. Normalperivertebral space. There is diffuse enlargement and hyperemia of the left faucial tonsil.This is in keeping with a phlegmon. No doyle abscess is seen at thistime.The swelling extends into the base of the left side of the epiglottis.Thevisualized tongue, tongue base and oropharynx are normal. The visualized cervical lymph nodes (levels I-) are within normal sizelimits, and maintain normal morphology. There is no demonstrated solidorcystic mass lesion. There is no abnormal contrast enhancement. Normal epiglottis, bilateral vallecu la and hypopharynx. The pre-epiglotticand paraglottic adipose spaces are normal. Normal visualized bilateralpiriform sinuses, aryepiglottic folds, vocal cords, and arytenoid-cricoidarticulations. Nor mal subglottic trachea. Normal bilateral lobes of the thyroid gland. Normal visualized pulmonaryapices. There is soft tissue prominence in the left nasal fossa. Normalvisualizedcervical spine. IMPRESS ION:There is enlargement, swelling and hyperemia of the faucil tonsil. Thereis no evidence of doyle abscess at this time. The swelling extends intothe base of the left side of the epiglottis. To consu lt with a radiologist regarding this report, please call our [id number] line @ Dictated on 12/11/11 1533 by Scott CHEN,GabrieleTranscribed on 12/11/11 1609 by ITS IMPORTSign by Pineda ludwig MD,Rhys on 12/11/11 1610 Sign by: Scott CHEN,Rhys CUB No growth in 5 Comments: COMMENTS: BC X2-15 MIN APART-2 DIFFERENT SITES PRIOR TO ATB,#2 213:45 days. (Normal) CUB No growth in 5 Comments: COMMENTS: BC X2-15 MIN APART-2 DIFFERENT SITES PRIOR TO ATB,#1 213:25 days. (Normal) [id number]:05 CBCD Comments: COMMENTS: FAX RESULTS TO [facility] - IVT DRAW RBCM NORM C+C {NORMAL} (Normal) PE ADEQUATE (Normal) BAS 1 % (Normal) Range: 0-1 EOS 1 % (Normal) Range: 0-5 MON 9 % (Normal) Range: 0-10 LYMPH 17 % (Abnormal) Range: 19-41 BAND 13 % (Abnormal) Range: 0-5 PMN 59 % (Normal) Range: 47-70 JUAN 100 (Normal) ANC 5.4 3/uL (Normal) Range: 2.0-7.7 MPV 8.6 fL (Normal) Range: 6.5-12.0 PLT 225 K/mm3 (Normal) Range: 150-450 RDW 13.1 % (Normal) Range: 11.6-14.6 MCHC 34.3 g/dL (Normal) Range: 32-36 MCH 31.7 pg (Normal) Range: 27.0-32.0 MCV 92.6 fL (Normal) Range: 81-99 HCT 36.9 % (Abnormal) Range: 37-47 HGB 12.6 g/dL (Normal) Range: 12.0-16.0 RBC 3.98 {M/mm3} (Abnormal) Range: 4.2-5.4 WBC 7.7 K/mm3 (Normal) Range: 4.4-11.0 :05 CRP 69.40 mg/L (Abnormal) Comments: COMMENTS: FAX RESULTS TO [facility] - IVT DRAW Range: 0.0-3.0 Comments: C-Reactive Protein (CRP) provides useful information for thediagnosis, therapy and monitoring of inflammatory processesand associated diseases. For the evaluation of Relative Riskfor Cardiovascular Dise ase, a High Sensitivity CRP (HSCRP)should be ordered. :05 EBGM Comments: COMMENTS: FAX RESULTS TO [facility] - IVT DRAW tEBINT Comment (Normal) Comments: EBV Interpretation Chart . Interpretation VCA-IgM EA-IgG VCA-IgG NA-ABS . Susceptible - - - - Acute Infection + +or- +or- - Convalescent Phase +or- +or- + + Chronic or Reactivated - + + +or- Old Infection - - +or- + + Antibody Pr esent - Antibody AbsentPerformed at: [facility] [id number] Director: Violetta Villanueva MD, Phone: [phone] EBNA > 8.0 {AI} (Abnormal) Range: 0.0-0.8 Comments: Negative <0.9 Equivocal 0.9 - 1.0 Positive >1.0 EBVG > 8.0 {AI} (Abnormal) Range: 0.0-0.8 Comments: Negative <0.9 Equivocal 0.9 - 1.0 Positive >1.0 EBEAG <0.2 {AI} (Normal) Range: 0.0-0.8 Comments: Negative <0.9 Equivocal 0.9 - 1.0 Positive >1.0 EBVM < 0.2 {AI} (Normal) Range: 0.0-0.8 Comments: Negative <0.9 Equivocal 0.9 - 1.0 Positive >1.0 :05 SED Comments: COMMENTS: [facility] tSEDRATE 45 mm/h (Abnormal) Range: 0-20 51-Hhv-181626:57 MONO tMONO Negative (Normal) :50 JANES taANA COMMENT (Normal) Comments: TESTING INTERPRETATIONSPOSITIVE: > 120EQUIVOCAL: 100 - 120NEGATIVE: < 100 taANA 72 AU/mL (Normal) :50 ANCA tANCAP <1:20 {titer} (Normal) Comments: The presence of positive fluorescence exhibiting P-ANCA orC-ANCA patterns alone is not specific for the diagnosis ofWegener's Granulomatosis (WG) or microscopic polyangiitis.Decisions about treatment sh ould not be based solely onANCA IFA results. The International ANCA Group Consensusrecommends follow up testing of positive sera with both WA-3 and MPO- ANCA enzyme immunoassays. As many as 5% serumsamp les are positive only by EIA. Ref. AM J Clin Wecbkz0249;111:507-513. tATYPANCA <1:20 {titer} (Normal) Comments: The atypical pANCA pattern has been observed in asignificant percentage of patients with ulcerative colitis,primary sclerosing cholangitis and autoimmune hepatitis. tANCAC <1:20 {titer} (Normal) :50 ASO 481.8 {IU/mL} Range: 0.0-200.0 (Abnormal) :50 C3 154 (Normal) Range: 90-180 Comments: INFCE Result Units: mg/dL AdultPerformed at: [facility] [address] [id number] Director: Chris Chase MD, Phone: [phone] at: [facility] [address] [id number] Director: Violetta Villanueva MD, Phone: [phone] :50 C4 27 (Normal) Range: 9-36 Comments: INFCE Result Units: mg/dL Adult :50 CBCD ANC 4.8 3/uL (Normal) Range: 2.0-7.7 B% 0.5 % (Normal) Range: 0-1 E% 2.6 % (Normal) Range: 0-5 M% 5.5 % (Normal) Range: 0-10 L% 26.6 % (Normal) Range: 19-41 N% 64.8 % (Normal) Range: 47-70 MPV 8.1 fL (Normal) Range: 6.5-12.0 PLT 241 K/mm3 (Normal) Range: 150-450 RDW 13.0 % (Normal) Range: 11.6-14.6 MCHC 34.4 g/dL (Normal) Range: 32-36 MCH 32.0 pg (Normal) Range: 27.0-32.0 MCV 92.9 fL (Normal) Range: 81-99 HCT 38.0 % (Normal) Range: 37-47 HGB 13.1 g/dL (Normal) Range: 12.0-16.0 RBC 4.09 {M/mm3} (Abnormal) Range: 4.2-5.4 WBC 7.4 K/mm3 (Normal) Range: 4.4-11.0 :50 CH50 55 U/mL (Normal) Range: 22-60 :50 CMP GAP 7 (Normal) Range: 5-15 CO2 26.0 mmol/L (Normal) Range: 21.0-32.0 CL 105 mmol/L (Normal) Range: 98-107 K 3.9 mmol/L (Normal) Range: 3.5-5.1 NA 138 mmol/L (Normal) Range: 136-145 BIT 0.50 mg/dL (Normal) Range: 0.00-1.00 ALT 34 U/L (Normal) Range: 12-78 ALK 40 U/L (Abnormal) Range: 50-136 AST 16 U/L (Normal) Range: 15-37 CA 8.6 mg/dL (Normal) Range: 8.5-10.1 AG 0.9 {RATIO} (Normal) Range: 0.9-2.4 GLOB 4.1 g/dL (Normal) Range: 2.7-4.2 ALB 3.7 g/dL (Normal) Range: 3.4-5.0 TPROT 7.8 g/dL (Normal) Range: 6.4-8.2 BC 16.3 {RATIO} (Normal) Range: 10-20 GFRAA 110 mL/min (Normal) GFR 91 mL/min (Normal) CREAT 0.8 mg/dL (Normal) Range: 0.6-1.0 BUN 13 mg/dL (Normal) Range: 7-18 GLU 118 mg/dL (Abnormal) Range: 70-110 Comments: Fasting Glucose result from 110 to <126 mg/dL suggests IMPAIRED HOMEOSTASIS per A.D.A. criteria. :50 CRP 2.91 mg/L (Normal) Range: 0.0-3.0 Comments: C-Reactive Protein (CRP) provides useful information for thediagnosis, therapy and monitoring of inflammatory processesand associated diseases. For the evaluation of Relative Riskfor Cardiovascular Dise ase, a High Sensitivity CRP (HSCRP)should be ordered. :50 HECAB tHECAB 0.2 (Normal) Range: 0.0-0.9 Comments: INFCE Result Units: s/co ratio Negative: < 0.8 Indeterminate 0.8 - 0.9 Positive: > 0.9 . In order to reduce the incidence of a false positive result, the CDC recommends that all s/co ratios between 1.0 and 10.9 be confirmed with additional RIBA or PCR testing. :50 QFTBINC tQFTBINT Comment (Normal) Comments: The QuantiFERON TB Gold (in Tube) assay is intended for useas an aid in the diagnosis of TB infection. Negativeresults suggest that there is no TB infection. In patientswith high suspicion of exposure, a negative test should berepeated. A positive test indicates infection withMycobacterium tuberculosis. Among individuals withouttuberculosis infection, a positive test may be due toexposure to M. k[place] ii, M. szulgai or M. marinum. On theInternet, go to cdc.gov/tb for further details. .The specimen received for QuantiFERON testing was incubated by the ordering institution. Specific procedures outlinedin our Directory of Services and in the package insert forthe QuantiFERON Gold (In Tube) test must be followed toenable for proper stimulation of cells for the productionof interferon gamma. tQFTBAGNIL 0.03 {IU/mL} (Normal) tQFTBMIT > 10.00 {IU/mL} (Normal) tQFTBNIL 0.03 {IU/mL} (Normal) tQFTBAG 0.06 {IU/mL} (Normal) tQFTBPC . (Normal) tQFTBGD Negative (Normal) :50 RF < 10.0 {IU/mL} (Normal) :45 T4 FREE DIRECT 0.78 ng/dL (Normal) Range: 0.76-1.46 :45 TPO AB 6676 577 {IU/mL} Range: 0-34 (Abnormal) Comments: Performed at: [address] [id number] Director: Violetta Villanueva MD, Phone: [phone] [id number]:45 TSH 4.59 {uIU/mL} Range: 0.358-3.74 (Abnormal) 70-Guh-831556:24 PROLACTIN (11364) Comments: PATIENT NOT FASTINGPERFORMED BY: [address] [id number] Prolactin 11.9 ng/mL (Normal) Range: 4.8-23.3 84-Uqy-364550:24 Thyroxine (T4) Free, Comments: PATIENT NOT FASTINGPERFORMED BY: [address] [id number] Information: [id number] Direct, S T4,Free(Direct) 0.80 ng/dL Range: 0.82-1.77 (Abnormal) 25-Jul-2011 Triiodothyronine,Free,Ser 2.8 pg/mL (Normal) Comments: PATIENT NOT FASTINGPERFORMED BY: [address] [id number] 13:24 um Range: 2.0-4.4 25-Jul-2011 Written Authorization WAR (Normal) Comments: PATIENT NOT FASTINGPERFORMED BY: [address] [id number] 13:24 Comments: Written Authorization Received.Authorization received from HORTENCIA SUAREZ MD [id number] by Nikki Rosa 66-[id number]:24 HCG (HUMAN CHORIONIC Comments: PATIENT NOT FASTINGPERFORMED BY: [address] [id number] GONADOTROPIN) (96045) hCG,Beta Subunit,Qual,Serum Negative m[iU]/mL (Normal) Comments: Negative <6 66-Zdo-110331:24 TSH (39293) Comments: PATIENT NOT FASTINGPERFORMED BY: [address] [id number] Information: [id number] TSH 14.370 {uIU/mL} (Abnormal) Range: 0.450-4.500 :53 HGB A1C 5.6 % (Normal) Range: 4.0-6.3 Comments: The methodology of Hgb A1C has changed to [place] significant changes in patient results are expected. The reference range remains the same. :26 CHEST WITH CONTRAST Radiology Report See Note (Normal) Comments: CLINICAL:Female, 25 years old. Elevated d-dimer. Upper back pain when breathing.Prior aortic valve replacement and a aortic aneurysm repair CT CHEST WITH CONTRAST TECHNIQUE:High resolution transaxial imaging was performed following intravenousadministration of 100 ml of Isovue 300 contrast material. COMPARISON:12/02/2006 FINDINGS: The lungs are normal. There is no demonstrated pleural abnormality. T here is mild cardiac enlargement. Normal mediastinum. Normal hilar regions. Normal enhancement of thepulmonary arteries. There is stable mild enlargement of the mainpulmonarywhich measures 3.3 cm. S table surgical change of prior median sternotomyand aortic valve replacement and aortic aneurysm repair is noted. Normal osseous structures. There is limited visualization of the liver, spleen, pancreas , adrenalglands, and abdominal aorta without a demonstrated abnormality. IMPRESSION:Postoperative changes with no acute process. Stable enlargement of the main pulmonary Dictated on 02/21/11 1436 by LATASHA DUCKWORTH MDTranscribed on 02/21/11 1532 by ITS IMPORTSign by LATASHA DUCKWORTH MD on 02/21/11 1533 Sign by: LATASHA DUCKWORTH MD :19 SERUM CRE & GFR Comments: PLS DO STAT AND CALL TO CT SCAN EST GFR - AA 97 mL/min (Normal) EST GFR 80 mL/min (Normal) CREAT,SERUM 0.9 mg/dL (Normal) Range: 0.6-1.0 :27 D-DIMER QUANT 0.56 ug/mL (Abnormal) Comments: CALL RESULTS Range: 0.22-0.48 Comments: Effective FEBRUARY 12, 2011.RESULTS CALLED TO [facility] TO MAACAGVMXY65/09/11 DHRUV ROUSSEAU.REPORT READ BACK BY SAME . [id number]:53 Urinalysis, Office (42602) UA - BILIRUBIN Negative (Normal) UA - BLOOD Hemolyzed Small (Abnormal) UA - GLUCOSE Negative (Normal) UA - KETONES Negative mg/dL (Normal) UA - LEUKOCYTE ESTERASE Negative (Normal) UA - NITRITE Negative (Normal) UA - PH 6.0 (Normal) UA - PROTEIN Negative mg/dL (Normal) UA - SPECIFIC GRAVITY 1.025 (Normal) URINE UROBILINGN JENNIFER TIMED Normal mg/dL (Normal) :12 HgA1C , Office (48933) HgA1C , Office 5.5 % (Normal) Range: 4.6 - 7.1 :46 THYROID Radiology Report See Note (Normal) Comments: Exam Number: [id number] CLINICAL:This is a 24-year-old female patient with history of goiter. ULTRASOUND THYROID TECHNIQUE:Multiple views of the thyroid gland were obtained. COMPARISON:None. FINDINGS:Nor mal size, contour and echotexture of the right lobe of thethyroid gland, measuring 3.7 cm in length. There is no discretesolid or cystic lesion. Normal size, contour and echotexture of the left lobe of the thyroidgland, measuring 3.7 cm in length. There is no discrete solid orcystic lesion. Normal thyroid isthmus. There is no perithyroid pathology. IMPRESSION:Normal thyroid sonogram. Reported By: RHYS ESPINOZA :57 Blood Glucose , Office ([id number]) Blood Glucose , Office 168 (Normal) :57 HgA1C , Office (10511) HgA1C , Office 5.2 % (Normal) Range: 4.6 - 7.1 [id number] Blood Glucose , Office (75955) Blood Glucose , Office 107 (Normal) :56 HgA1C , Office (87938) HgA1C , Office 5.1 % (Normal) Range: 4.6 - 7.1 :56 Blood Glucose , Office (97689) Blood Glucose , Office 90 (Normal) [id number] UMAIR CULTURE-OTHER ([id number]) Comments: thraot; PATIENT NOT FASTINGClinical Information: SRC:THRT ADD [id number] PERFORMED BY: [id number] [id number] Result 1 RRF (Normal) Comments: Routine respiratory flavia Upper Respiratory Culture Final report (Normal) [id number] Rapid Strep Test, Office ([id number]) Comments: neg Rapid Strep Test, Office Negative (Normal) :10 DAISY 31 U/L (Normal) Range: 25-115 :10 LIVER ALB 3.5 g/dL (Normal) Range: 3.4-5.0 ALK P 63 U/L (Normal) Range: 50-136 ALT 25 [iU]/L (Abnormal) Range: 30-65 AST 10 U/L (Abnormal) Range: 15-37 D BILI 0.06 mg/dL (Normal) Range: 0.00-0.30 T BILI 0.20 mg/dL (Normal) Range: 0.00-1.00 T PROT 8.0 g/dL (Normal) Range: 6.4-8.2 :14 DAISY 32 U/L (Normal) Range: 25-115 :14 LIVER ALB 3.5 g/dL (Normal) Range: 3.4-5.0 ALK P 57 U/L (Normal) Range: 50-136 ALT 29 [iU]/L (Abnormal) Range: 30-65 AST 13 U/L (Abnormal) Range: 15-37 D BILI 0.04 mg/dL (Normal) Range: 0.00-0.30 T BILI 0.20 mg/dL (Normal) Range: 0.00-1.00 T PROT 8.0 g/dL (Normal) Range: 6.4-8.2 :49 DAISY 32 U/L (Normal) Range: 25-115 :49 LIVER ALB 3.7 g/dL (Normal) Range: 3.4-5.0 ALK P 59 U/L (Normal) Range: 50-136 ALT 26 [iU]/L (Abnormal) Range: 30-65 AST 9 U/L (Abnormal) Range: 15-37 D BILI 0.06 mg/dL (Normal) Range: 0.00-0.30 T BILI 0.21 mg/dL (Normal) Range: 0.00-1.00 T PROT 8.4 g/dL (Abnormal) Range: 6.4-8.2 :10 BMP Comments: COMMENTS: LAZOR 02/24/07 BUN 12 mg/dL (Normal) Range: 7-18 BUN/CRE 15.0 {RATIO} (Normal) Range: 10-20 CA 9.0 mg/dL (Normal) Range: 8.5-10.1 CL 106 mmol/L (Normal) Range: 98-107 CO2 24.1 mmol/L (Normal) Range: 22.0-29.0 CREAT,SERUM 0.8 mg/dL (Normal) Range: 0.6-1.0 GAP 9 (Normal) Range: 5-15 GLU 86 mg/dL (Normal) Range: 70-110 K 4.2 mmol/L (Normal) Range: 3.5-5.1 NA 139 mmol/L (Normal) Range: 136-145 :10 CBCD Comments: COMMENTS: LAZOR 02/24/07 BASO% 0.3 % (Normal) Range: 0-1 EO% 1.2 % (Normal) Range: 0-5 HCT 37.2 % (Normal) Range: 37-47 HGB 12.5 g/dL (Normal) Range: 12.0-16.0 LY% 27.2 % (Normal) Range: 19-41 MCH 28.3 pg (Normal) Range: 27.0-32.0 MCHC 33.5 g/dL (Normal) Range: 32-36 MCV 84.3 fL (Normal) Range: 81-99 MONO% 4.9 % (Normal) Range: 0-10 MPV 8.2 fL (Normal) Range: 6.5-12.0 NEUT% 66.4 % (Normal) Range: 47-70 PLT 272 K/mm3 (Normal) Range: 150-450 RBC 4.42 {M/mm3} (Normal) Range: 4.2-5.4 RDW 15.7 % (Abnormal) Range: 11.6-14.6 WBC 8.1 K/mm3 (Normal) Range: 4.4-11.0 :10 LIVER Comments: COMMENTS: LAZOR 02/24/07 ALB 3.4 g/dL (Normal) Range: 3.4-5.0 ALK P 58 U/L (Normal) Range: 50-136 ALT 54 [iU]/L (Normal) Range: 30-65 AST 21 U/L (Normal) Range: 15-37 D BILI 0.05 mg/dL (Normal) Range: 0.00-0.30 T BILI 0.24 mg/dL (Normal) Range: 0.00-1.00 T PROT 7.6 g/dL (Normal) Range: 6.4-8.2 18-Feb-20079:10 ,SERUM Comments: COMMENTS: PAT,OR 02/24/07 HCGSQUAL SeeNote m[iU]/mL (Normal) Comments: Result: NEGATIVE [id number]-Ykj-[id number]:03 GALLBLADDER Radiology Report See Note (Normal) Comments: Exam Number: [id number] ULTRASOUND OF GALLBLADDER CLINICAL INFORMATIONRight upper quadrant pain. Sonographic images of the pancreas were unremarkable. There was noevidence of mass or peripancreatic flu id collection. The liver appears slightly echogenic with portal triads obscured. Most common etiology for this appearance is mild steatosis. Clinicalcorrelation is suggested. No focal parenchymal les ions are seen. Liver length was normal at 16 cm. The gallbladder appears contractedbut contains echogenic foci with shadowing consistent with stones. Nofocal tenderness was elicited with skin and over the gallbladder. Extrahepatic bile ducts are within normal limits. Right kidneymeasured approximately 10 cm in length with no evidence ofhydronephrosis. IMPRESSIONUnremarkable appearance of the panc reas and bile ducts. Liverdemonstrates no focal lesion and is normal in size but there is aquestion of mild steatosis. There is evidence of cholelithiasis. Thegallbladder appears contracted. Reported By: ANTHONY VILLANUEVA M.D. D-DIMER QUANT 2360 ng/mL Comments: COMMENTS: ROOM 12Precautions*: NOT APPLICABLE :00 (Abnormal) Comments: D-Dimer ELEVATED: Additional studies may be indicated to conclude diagnosis. [facility]06 [place] ABIGAIL BURNS.REPORT READ BACK BY SAME . DAISY 46 U/L (Normal) Comments: COMMENTS: BONEZZIPrecautions*: NOT APPLICABLE :00 Range: 25-115 :00 CBCD Comments: COMMENTS: BONEZZIPrecautions*: NOT APPLICABLE BASO% 0.6 % (Normal) Range: 0-1 EO% 4.1 % (Normal) Range: 0-5 HCT 31.2 % (Abnormal) Range: 37-47 HGB 10.4 g/dL (Abnormal) Range: 12.0-16.0 LY% 16.1 % (Abnormal) Range: 19-41 MCH 30.2 pg (Normal) Range: 27.0-32.0 MCHC 33.5 g/dL (Normal) Range: 32-36 MCV 90.2 fL (Normal) Range: 81-99 MONO% 6.4 % (Normal) Range: 0-10 MPV 7.7 fL (Normal) Range: 6.5-12.0 NEUT% 72.8 % (Abnormal) Range: 47-70 PLT 427 K/mm3 (Normal) Range: 150-450 RBC 3.46 {M/mm3} (Abnormal) Range: 4.2-5.4 RDW 13.5 % (Normal) Range: 11.6-14.6 WBC 12.5 K/mm3 (Abnormal) Range: 4.4-11.0 :00 COMP METABOLIC Comments: COMMENTS: BONEZZIPrecautions*: NOT APPLICABLE A/G 0.8 {RATIO} (Abnormal) Range: 0.9-2.4 ALB 3.6 g/dL (Normal) Range: 3.4-5.0 ALK P 74 U/L (Normal) Range: 50-136 ALT 83 [iU]/L (Abnormal) Range: 30-65 AST 33 U/L (Normal) Range: 15-37 BUN 13 mg/dL (Normal) Range: 7-18 BUN/CRE 13.0 {RATIO} (Normal) Range: 10-20 CA 9.5 mg/dL (Normal) Range: 8.5-10.1 CL 101 mmol/L (Normal) Range: 98-107 CO2 28.9 mmol/L (Normal) Range: 22.0-29.0 CREAT,SERUM 1.0 mg/dL (Normal) Range: 0.6-1.0 GAP 8 (Normal) Range: 5-15 GLOB 4.5 g/dL (Abnormal) Range: 2.3-3.5 GLU 93 mg/dL (Normal) Range: 70-110 K 4.3 mmol/L (Normal) Range: 3.5-5.1 NA 138 mmol/L (Normal) Range: 136-145 T BILI 0.23 mg/dL (Normal) Range: 0.00-1.00 T PROT 8.1 g/dL (Normal) Range: 6.4-8.2 :00 COMPLETE UA Comments: COMMENTS: BONEZZIPrecautions*: NOT APPLICABLE BACTERIA 0 SEEN {/hpf} (Normal) BILIRUBIN URINE SeeNote (Normal) Comments: Result: NEGATIVE CLARITY CLEAR (Normal) COLOR YELLOW (Normal) GLUCOSE, UR SeeNote (Normal) Comments: Result: NEGATIVE KETONE UR SeeNote mg/dL (Normal) Comments: Result: NEGATIVE LEUK ESTERASE SeeNote (Normal) Comments: Result: NEGATIVE MUCUS, URINE 0 SEEN {/hpf} (Normal) NITRITE UR SeeNote (Normal) Comments: Result: NEGATIVE OCCULT BLOOD-UR SeeNote (Abnormal) Comments: Result: TRACE-INTACT pH UR 6.5 (Normal) Range: 5.0-8.0 PROT DIPSTX SeeNote (Normal) Comments: Result: NEGATIVE RBC-UA SeeNote {/hpf} (Normal) Range: 0-5 Comments: Result: 0-5 SEEN SP.GR. DIPSTX 1.020 (Normal) Range: 1.002-1.030 SQUAM EPI SeeNote {/hpf} (Normal) Range: 5-10 Comments: Result: 0-5 SEEN UROBILI 0.2 EU/dl (Normal) Range: 0.2 - 1.0 WBC SeeNote {/hpf} (Normal) Range: 0-5 Comments: Result: 0-5 SEEN :00 D BILI 0.08 mg/dL (Normal) Comments: COMMENTS: BONEZZIPrecautions*: NOT APPLICABLE Range: 0.00-0.30 :00 LIPASE 229 U/L (Normal) Comments: COMMENTS: BONEZZIPrecautions*: NOT APPLICABLE Range: 114-286 :00 TROPONIN-I < 0.04 ng/mL (Normal) Comments: COMMENTS: ROOM 12Precautions*: NOT APPLICABLE Comments: TROPONIN-I EXPECTED VALUES < 0.50 NEGATIVE 0.50 - 1.49 INDETERMINANT > OR = 1.50 SUGGEST [place] 01-Lul-879709:09 COMP METABOLIC Comments: STAT A/G 0.8 {RATIO} (Abnormal) Range: 0.9-2.4 ALB 3.3 g/dL (Abnormal) Range: 3.4-5.0 ALK P 71 U/L (Normal) Range: 50-136 ALT 92 [iU]/L (Abnormal) Range: 30-65 AST 33 U/L (Normal) Range: 15-37 BUN 15 mg/dL (Normal) Range: 7-18 BUN/CRE 15.0 {RATIO} (Normal) Range: 10-20 CA 9.4 mg/dL (Normal) Range: 8.5-10.1 CL 104 mmol/L (Normal) Range: 98-107 CO2 30.0 mmol/L (Abnormal) Range: 22.0-29.0 CREAT,SERUM 1.0 mg/dL (Normal) Range: 0.6-1.0 GAP 6 (Normal) Range: 5-15 GLOB 4.4 g/dL (Abnormal) Range: 2.3-3.5 GLU 100 mg/dL (Normal) Range: 70-110 K 4.5 mmol/L (Normal) Range: 3.5-5.1 NA 140 mmol/L (Normal) Range: 136-145 T BILI 0.21 mg/dL (Normal) Range: 0.00-1.00 T PROT 7.7 g/dL (Normal) Range: 6.4-8.2 51-Pnf-156941:15 CULTURE, WOUND Comments: CHEST INCISION GRAM STAIN See Note (Normal) Comments: GRAM STAIN RARE EPITHELIAL CELLS RARE GRAM NEGATIVE RODS WOUND CULTURE See Note (Normal) Comments: AMOUNT GROWTH RARE ORGANISM 1: SERRATIA MARCESCENS SERRATIA MARCESCENS: REACTION AMPICILLIN GN $ >=32 R AMPICILLIN /SULBACTA M $$$ >=32 R AZTREONAM $$$ <=8 S CEFAZOLIN $ >=32 R CEFEPIME $$$ <=4 S C EFTAZIDIME $$$ <=8 S CEFTRIAXONE $$$ <=8 S CIPROFLOXACIN GN $$$ <=0.5 S GENTAMICIN GN $ 2 S IMIPENEM $$$ <=4 S LEVOFLOXACIN $$ <=1 S PIPERACILLIN/TAZOBACTAM $$$ <=8 S TRIMETHOPRIM/SULFAMETHOXAZ $$ <=10 S :00 L BREAST P-BRBXL (Normal) Comments: OPERATION Core bx left breast PRE-OPERATIVE DIAGNOSIS Left breast mass, abn. mammogram TISSUE SUBMITTED Left breast bx MICROSCOPIC DIAGNOSIS Left breast, core biopsy: Benign lobular hyperplasia. M inimal fibrocystic change. No evidence of malignancy. AM: 11/07/06 COMMENT A single core contains compacted lobules with dense stroma. These findings may be seen in sclerosing lobular hyperpla abiel and possibly tubular adenoma. The intervening stroma does not include classic features of stroma seen in fibroadenoma. Complete excision of lesion is recommended for definitive classification. Clinical correlation is necessary. GROSS DESCRIPTION Received is one container not further designated. The specimen consists of multiple irregular and elongated fragments of yellow-white soft tissue m easuring in aggregate 1.2 x 0.5 x 0.1 cm. The specimen is totally submitted in one cassette. / AM: 11/05/06 TC: REPORT SIGNED: THELMA GRIFFIN 11/07/06:50 DAISY 33 U/L (Normal) Comments: COMMENTS: BED 8 DR Wagner*: NOT APPLICABLE Range: 25-115 :50 CBCD Comments: COMMENTS: BED 8 DR Wagner*: NOT APPLICABLE BASO% 0.7 % (Normal) Range: 0-1 EO% 2.4 % (Normal) Range: 0-5 HCT 40.7 % (Normal) Range: 37-47 HGB 13.8 g/dL (Normal) Range: 12.0-16.0 LY% 28.2 % (Normal) Range: 19-41 MCH 30.5 pg (Normal) Range: 27.0-32.0 MCHC 34.0 g/dL (Normal) Range: 32-36 MCV 89.7 fL (Normal) Range: 81-99 MONO% 6.7 % (Normal) Range: 0-10 MPV 7.8 fL (Normal) Range: 6.5-12.0 NEUT% 62.0 % (Normal) Range: 47-70 PLT 309 K/mm3 (Normal) Range: 150-450 RBC 4.54 {M/mm3} (Normal) Range: 4.2-5.4 RDW 12.4 % (Normal) Range: 11.6-14.6 WBC 10.4 K/mm3 (Normal) Range: 4.4-11.0 :50 COMP METABOLIC Comments: COMMENTS: BED 8 DR Wagner*: NOT APPLICABLE A/G 0.7 {RATIO} (Abnormal) Range: 0.9-2.4 ALB 3.4 g/dL (Normal) Range: 3.4-5.0 ALK P 51 U/L (Normal) Range: 50-136 ALT 29 [iU]/L (Abnormal) Range: 30-65 AST 12 U/L (Abnormal) Range: 15-37 BUN 12 mg/dL (Normal) Range: 7-18 BUN/CRE 12.0 {RATIO} (Normal) Range: 10-20 CA 8.5 mg/dL (Normal) Range: 8.5-10.1 CL 103 mmol/L (Normal) Range: 98-107 CO2 25.3 mmol/L (Normal) Range: 22.0-29.0 CREAT,SERUM 1.0 mg/dL (Normal) Range: 0.6-1.0 GAP 9 (Normal) Range: 5-15 GLOB 4.6 g/dL (Abnormal) Range: 2.3-3.5 GLU 126 mg/dL (Abnormal) Range: 70-110 Comments: Fasting Glucose result greater than or equal to 126 mg/dL suggests DIABETES MELLITUS per A.D.A. criteria. K 4.0 mmol/L (Normal) Range: 3.5-5.1 NA 137 mmol/L (Normal) Range: 136-145 T BILI 0.21 mg/dL (Normal) Range: 0.00-1.00 T PROT 8.0 g/dL (Normal) Range: 6.4-8.2 :50 LIPASE 162 U/L (Normal) Comments: COMMENTS: BED 8 DR Wanger*: NOT APPLICABLE Range: 114-286 Plan of Care Name Dates Details Instructions Physical exam : Reviewed Lab Indication: Physical exam Diabetes mellitus type 2, uncontrolled (Renamed from Uncontrolled type 2 diabetes mellitus) : Follow up in 3 months Indication: Diabetes mellitus type 2, uncontrolled (Renamed from Uncontrolled type 2 diabetes mellitus) Hypothyroidism : Continue Current Prescription(s) Indication: Hypothyroidism Diabetes mellitus type 2, uncontrolled (Renamed from Uncontrolled type 2 diabetes mellitus) : Reviewed Lab Indication: Diabetes mellitus type 2, uncontrolled (Renamed from Uncontrolled type 2 diabetes mellitus) Hypercholesteremia : Cholesterol mgmt Indication: Hypercholesteremia Diabetes mellitus type 2, uncontrolled (Renamed from Uncontrolled type 2 diabetes mellitus) : *Diabetes Education Indication: Diabetes mellitus type 2, uncontrolled (Renamed from Uncontrolled type 2 diabetes mellitus) Nonsmoker : Eprescribed prescriptions (G8553) Indication: Nonsmoker Chest wall pain : Reviewed Lab Indication: Chest wall pain Chest wall pain : Reviewed Diagnostic Tests Indication: Chest wall pain Chest wall pain : Reviewed Enterprise Manager Letter Indication: Chest wall pain Thyroid nodule : Reviewed Diagnostic Tests Indication: Thyroid nodule Thyroid nodule : Reviewed Enterprise Manager Letter Indication: Thyroid nodule Hypothyroidism : Continue Current Prescription(s) Indication: Hypothyroidism Hypercholesteremia : Cholesterol mgmt Indication: Hypercholesteremia Diabetes mellitus type 2, uncontrolled (Renamed from Uncontrolled type 2 diabetes mellitus) : Eprescribed prescriptions (G8553) Indication: Diabetes mellitus type 2, uncontrolled (Renamed from Uncontrolled type 2 diabetes mellitus) Diabetes mellitus type 2, uncontrolled (Renamed from Uncontrolled type 2 diabetes mellitus) : Follow up in 3 months Indication: Diabetes mellitus type 2, uncontrolled (Renamed from Uncontrolled type 2 diabetes mellitus) Hypothyroidism : Continue Current Prescription(s) Indication: Hypothyroidism Hypothyroidism : Reviewed Lab Indication: Hypothyroidism Thyroid nodule : Reviewed Diagnostic Tests Indication: Thyroid nodule Diabetes mellitus type 2, uncontrolled (Renamed from Uncontrolled type 2 diabetes mellitus) : Follow up in 3 months Indication: Diabetes mellitus type 2, uncontrolled (Renamed from Uncontrolled type 2 diabetes mellitus) Diabetes mellitus type 2, uncontrolled (Renamed from Uncontrolled type 2 diabetes mellitus) : Diet, Exercise, and Wt loss Indication: Diabetes mellitus type 2, uncontrolled (Renamed from Uncontrolled type 2 diabetes mellitus) Diabetes mellitus type 2, uncontrolled (Renamed from Uncontrolled type 2 diabetes mellitus) : *Diabetes Education Indication: Diabetes mellitus type 2, uncontrolled (Renamed from Uncontrolled type 2 diabetes mellitus) Hypothyroidism : Continue Current Prescription(s) Indication: Hypothyroidism Hypothyroidism : Reviewed Lab Indication: Hypothyroidism Annual physical exam : Reviewed Lab Indication: Annual physical exam Diabetes mellitus type 2, uncontrolled (Renamed from Uncontrolled type 2 diabetes mellitus) : Follow up in 3 months Indication: Diabetes mellitus type 2, uncontrolled (Renamed from Uncontrolled type 2 diabetes mellitus) Diabetes mellitus type 2, uncontrolled (Renamed from Uncontrolled type 2 diabetes mellitus) : Diabetes and Exercise: Preventing Low Blood Sugar: blood sugar Indication: Diabetes mellitus type 2, uncontrolled (Renamed from Uncontrolled type 2 diabetes mellitus) Physical exam : Reviewed Lab Indication: Physical exam Upper respiratory infection : Follow up if no improvement or if symptoms worsen Indication: Upper respiratory infection Serous conjunctivitis, unspecified laterality : *Conjunctivitis Education Indication: Serous conjunctivitis, unspecified laterality Wheezing : Follow up if no improvement or if symptoms worsen Indication: Wheezing BRONCHITIS, NOT SPECIFIED ACUTE OR CHRONIC (490.) : *URI Treatment Indication: BRONCHITIS, NOT SPECIFIED ACUTE OR CHRONIC (490.) BRONCHITIS, NOT SPECIFIED ACUTE OR CHRONIC (490.) : *URI Symptoms Indication: BRONCHITIS, NOT SPECIFIED ACUTE OR CHRONIC (490.) BRONCHITIS, NOT SPECIFIED ACUTE OR CHRONIC (490.) : *Antibiotic Usage Education - Female Indication: BRONCHITIS, NOT SPECIFIED ACUTE OR CHRONIC (490.) Sinus drainage : Follow up if no improvement or if symptoms worsen Indication: Sinus drainage Encounter for pre-employment examination : Eprescribed prescriptions (G8553) Indication: Encounter for pre-employment examination Cough : Follow up if no improvement or if symptoms worsen Indication: Cough BRONCHITIS, NOT SPECIFIED ACUTE OR CHRONIC (490.) : *URI Treatment Indication: BRONCHITIS, NOT SPECIFIED ACUTE OR CHRONIC (490.) BRONCHITIS, NOT SPECIFIED ACUTE OR CHRONIC (490.) : *URI Symptoms Indication: BRONCHITIS, NOT SPECIFIED ACUTE OR CHRONIC (490.) BRONCHITIS, NOT SPECIFIED ACUTE OR CHRONIC (490.) : *Antibiotic Usage Education - Female Indication: BRONCHITIS, NOT SPECIFIED ACUTE OR CHRONIC (490.) Candidiasis, mouth : Follow up in 1 week Indication: Candidiasis, mouth Acute tonsillitis : Follow up tomorrow, as needed Indication: Acute tonsillitis Pharyngitis, acute : Sore throat: diagnosis and treatment Indication: Pharyngitis, acute Upper respiratory infection : *Antibiotic Usage Education - Female Indication: Upper respiratory infection Abdominal pain, acute, right upper quadrant : Abd Pain Red Flags Indication: Abdominal pain, acute, right upper quadrant Cellulitis and abscess of other specified site : Antibiotic Usage Education - Female Indication: Cellulitis and abscess of other specified site Acute sinusitis, unspecified : Antibiotic Usage Education - Female Indication: Acute sinusitis, unspecified Acute sinusitis, unspecified : URI Symptoms Indication: Acute sinusitis, unspecified Acute sinusitis, unspecified : URI treament Indication: Acute sinusitis, unspecified Glucose intolerance (no malabsorption) : FOLLOW UP IN 1 YEAR Indication: Glucose intolerance (no malabsorption) GERD (gastroesophageal reflux disease) : FOLLOW UP NEEDED IF NOT BETTER IN TWO WEEKS Indication: GERD (gastroesophageal reflux disease) Planned Observations HGB A1C (06077)Indication: Diabetes mellitus type 2, uncontrolled (Renamed from Uncontrolled type 2 diabetes mellitus) On: 07-Xpl-091946:49 Request LIPID PANEL (57958)Indication: Hypercholesteremia On: 81-Udm-703168:48 Request T4, FREE (THYROXINE) (67740)Indication: Hypothyroidism On: : Request T3, FREE (TRIDOTHYRONINE) (97621)Indication: Hypothyroidism On: : Request TSH (55835)Indication: Hypothyroidism On: : Request CBC (Auto) (37759)Indication: Diabetes mellitus type 2, uncontrolled (Renamed from Uncontrolled type 2 diabetes mellitus) On: :29 Request Lipid Panel (25725)Indication: Diabetes mellitus type 2, uncontrolled (Renamed from Uncontrolled type 2 diabetes mellitus) On: :29 Request Metabolic Panel, Comprehensive (03553)Indication: Diabetes mellitus type 2, uncontrolled (Renamed from Uncontrolled type 2 diabetes mellitus) On: :28 Request HGB A1C (74730)Indication: Diabetes mellitus type 2, uncontrolled (Renamed from Uncontrolled type 2 diabetes mellitus) On: 68-Ibk-620156:28 Request Comments: is due end august -roberto HGB A1C (92386)Indication: Diabetes mellitus type 2, uncontrolled (Renamed from Uncontrolled type 2 diabetes mellitus) On: 34-Bdh-908059:19 Request TSH (53579)Indication: Hypothyroidism On: :18 Request T4, FREE (THYROXINE) (55964)Indication: Hypothyroidism On: :18 Request T3, FREE (TRIDOTHYRONINE) (38058)Indication: Hypothyroidism On: :18 Request TSH (57800)Indication: Hypothyroidism On: 1-Oyo-081773:13 Request T4, FREE (THYROXINE) (37090)Indication: Hypothyroidism On: :13 Request T3, FREE (TRIDOTHYRONINE) (82528)Indication: Hypothyroidism On: 3-Hrr-868326:13 Request Urine Protein Electrophoresis (UPEP) (89471)Indication: Elevated serum globulin level On: 5-Rea-594239:10 Request Serum Protein Electrophoresis (SPEP) (90743)Indication: Elevated serum globulin level On: 5-Saq-101666:10 Request Hemoglobin Glyclated (HGB A1C) (38443)Indication: Diabetes mellitus type II, controlled, with no complications On: 91-Oam-38263:54 Request METABOLIC PANEL, COMPREHENSIVE (58338)Indication: Diabetes mellitus type II, controlled, with no complications On: 43-Ydp-40512:54 Request ISLET CELL ANTIBODY (81404)Indication: Diabetes mellitus type II, controlled, with no complications On: 69-Mce-399300:00 Request Hemoglobin Glyclated (HGB A1C) (21222)Indication: Diabetes mellitus type II, controlled, with no complications On: 16-Swc-760461:54 Request TSH (91248)Indication: Hypothyroidism On: 20-Bph-154334:53 Request LIPID PANEL (85512)Indication: Glucose intolerance (no malabsorption) On: 42-Lfs-77678:16 Request TSH (39104)Indication: Hypothyroidism On: 77-Swt-45715:11 Request CREATININE BLOOD (50388)Indication: Abnormal cardiac function test On: 17-Oqc-722961:02 Request HCG Qualitative, Serum (69040)Indication: Positive test On: 20-Alk-843256:59 Request Comments: Please also send to Dr Ness in [place], [phone] HCG Quantitative (60195)Indication: Positive test On: 40-Hjj-323496:24 Request Metabolic Panel, Comprehensive (64719)Indication: Glucose intolerance (no malabsorption) On: :42 Request TSH (90790)Indication: Hypothyroidism On: :41 Request HgA1C , Office (69113)Indication: Glucose intolerance (no malabsorption) On: 41-Ikc-346729:55 Request TSH (18447)Indication: Hypothyroidism On: 96-Bnt-228528:33 Request C-Reactive Protein (49649)Indication: CRP elevated On: 5-Dhl-101046:51 Request C-REACTIVE PROTEIN (26505)Indication: Abnormal blood chemistry On: :29 Request SED RATE ERYTHROCYTE (19831)Indication: Abnormal blood chemistry On: :29 Request C-REACTIVE PROTEIN (65095)Indication: Abnormal blood chemistry On: :24 Request SED RATE ERYTHROCYTE (84606)Indication: Abnormal blood chemistry On: :24 Request URINALYSIS (84026)Indication: Acute tonsillitis On: :41 Request URINE UMAIR CULTURE-IDENTIFICATN (33878)Indication: Acute tonsillitis On: :41 Request MICROALBUMIN: CREATININE RATIO (45167) AND (22121)Indication: Acute tonsillitis On: :41 Request C-Reactive Protein (20673)Indication: Pharyngitis, acute On: : Request Sed Rate Erythrocyte (84995)Indication: Pharyngitis, acute On: :25 Request CBC with manual diff (00624)Indication: Pharyngitis, acute On: :25 Request EBV Panel (20995)Indication: Pharyngitis, acute On: :24 Request MONOSPOT TEST (25523)Indication: Pharyngitis, acute On: 43-Adr-426785:33 Request HEPATITIS C ANTIBODY (63686)Indication: Rash On: :33 Request CBC (Auto) (30162)Indication: Rash On: :33 Request Metabolic Panel, Comprehensive (32180)Indication: Rash On: :33 Request Quantiferron gold test (69894)Indication: Rash On: :32 Request ANTISTREPTOLYSIN O-TITER (14581)Indication: Rash On: :32 Request COMPLEMENT, TOTAL (CH50) (65872)Indication: Rash On: :31 Request COMPLEMENT C4 (48600)Indication: Rash On: : Request COMPLEMENT C3 (56366)Indication: Rash On: :31 Request C-Reactive Protein (04437)Indication: Rash On: :31 Request RHEUMATOID FACTOR-QUANT (25759)Indication: Rash On: : Request JANES (ANTINUCLEAR ANTIBODY) (79507)Indication: Rash On: : Request ANCA-P (ANTI NEUTROPHIL CYTOPLASMIC ANTIBODY)Indication: Rash On: : Request ANCA-C (ANTI NEUTROPHIL CYTOPLASMIC ANTIBODY)Indication: Rash On: : Request Anti-TPO Antibody (01732)Indication: Hypothyroidism On: :12 Request TSH (29337)Indication: Hypothyroidism On: :12 Request T4, FREE (THYROXINE) (21344)Indication: Hypothyroidism On: :12 Request HgA1C , Office (26994)Indication: Glucose intolerance (no malabsorption) On: :01 Request Creatine (33169)Indication: Chest pain On: 8-Izv-104187:51 Request Comments: pls do stat and call to ct scan D-Dimer (79878)Indication: Chest pain On: :14 Request Comments: call results TSH (92611)Indication: Obesity, unspecified On: :34 Request MICROALBUMIN: CREATININE RATIO (90745) AND (88712)Indication: Glucose intolerance (no malabsorption) On: :34 Request METABOLIC PANEL, COMPREHENSIVE (25115)Indication: Glucose intolerance (no malabsorption) On: :34 Request LIPID PANEL (16192)Indication: Glucose intolerance (no malabsorption) On: :34 Request CBC WITH MANUAL DIFF (85113)Indication: Glucose intolerance (no malabsorption) On: :34 Request HgA1C , Office (00345)Indication: Glucose intolerance (no malabsorption) On: :14 Request UMAIR CULTURE-OTHER (81281)Indication: Cellulitis and abscess of other specified site On: :54 Request Metabolic Panel, Comprehensive (78226)Indication: Abnormal blood chemistry On: 70-Ruk-619763:30 Request GLUCOSE (61275)Indication: Glucose intolerance (no malabsorption) On: :09 Request GLUCAGON TOLERANCE TEST 2HR (37684)Indication: Glucose intolerance (no malabsorption) On: 28-Vjt-239742:14 Request TSH (71358)Indication: Glucose intolerance (no malabsorption) On: 18-Egu-740758:14 Request Planned Procedures THYROID ULTRASOUND (68141)By: Darell On: 12-Jun-2017 Ilda Rudd DO, DO, Kathleen PNEUM VAC ADLT/IMUMNOSPR, SBC/INTRM On: 20-Jun-2016 Intent (00253)By: Ilda Lozoya DO, DO, Kathleen COMP EYE EXAMINATION, ESTAB PATIENT On: 12-Sep-2015 Intent (18502)By: Aundrea Tanner CNP Solu -Medrol Injection, 125 mg On: 10-Aug-2014 Intent ([id number])By: Aundrea Tanner CNP Aerosol Treatment (97016)By: Flores On: 10-Aug-2014 Intent Aundrea JI Eprescribed prescriptions (G8553)By: On: 18-May-2013 Intent Eva Drake Inhaler Demonstration (81759)By: On: 03-Jun-2012 Intent Aundrea Tanner CNP Aerosol Treatment (73843)By: Flores On: 03-Jun-2012 Intent Aundrea JI TDAP VACCINE >7 IM (51486)By: On: 07-May-2012 Intent Lottie Morales Comments: received [facility] 12/[facility] Echo CompleteBy: Aundrea Tanner CNP On: 11-Dec-2011 Intent Comments: today if possible CT - Other (IV Contrast Needed)By: On: 11-Dec-2011 Intent Aundrea Tanner CNP Comments: Look at left tonsilar area for abcess and sinus, today call Todd at [facility] with results or director of industrial relations for [facility] INFUSION, NORMAL SALINE SOLUTION , On: 10-Dec-2011 Intent 1000 CC (Special Coverage Instructions Apply. See MCM: 2049) ([id number])By: Aundrea Tanner CNP HYDRATION IV INFUSION, INIT On: 10-Dec-2011 Intent ([id number])By: Aundrea Tanner CNP CT - ChestBy: Hortencia Suarez MD On: 21-Feb-2011 Intent Comments: STAT PE protocol Pulse Oximetry (47123)By: Bossman CHEN, On: 21-Feb-2011 Intent Hortencia Lobo Ultrasound - ThyroidBy: Bossman CHEN, On: 01-Jun-2010 Intent Hortencia Lobo Ultrasound - GallbladderBy: STAR On: 10-Feb-2007 Intent [facility] w/CPKBy: On: 16-Oct-2006 Intent Hortencia Suarez MD Planned Medications INFUSION, NORMAL SALINE SOLUTION , 1000 CC Ordered: 10-Dec-2011 Pending Aundrea Tanner CNP INJECTION, METHYLPREDNISOLONE SODIUM SUCCINATE, UP TO 125 MG Ordered: 10-Aug-2014 Pending Aundrea Tanner CNP Instructions Name Dates Details BMI 33.0-33.9,adult : How to access health information online - Detail Indication: BMI 33.0-33.9,adult BMI 33.0-33.9,adult : Patient Instructions Indication: BMI 33.0-33.9,adult Nonsmoker : How to access health information online Indication: Nonsmoker Nonsmoker : How to access health information online - Detail Indication: Nonsmoker Nonsmoker : Patient Instructions Indication: Nonsmoker Nonsmoker : How to access health information online Indication: Nonsmoker Nonsmoker : How to access health information online - Detail Indication: Nonsmoker Nonsmoker : Patient Instructions Indication: Nonsmoker BMI 34.0-34.9,adult : How to access health information online Indication: BMI 34.0-34.9,adult BMI 34.0-34.9,adult : How to access health information online - Detail Indication: BMI 34.0-34.9,adult BMI 34.0-34.9,adult : Patient Instructions Indication: BMI 34.0-34.9,adult Diabetes mellitus type 2, uncontrolled (Renamed from Uncontrolled type 2 diabetes mellitus) : How to access health information online Indication: Diabetes mellitus type 2, uncontrolled (Renamed from Uncontrolled type 2 diabetes mellitus) Diabetes mellitus type 2, uncontrolled (Renamed from Uncontrolled type 2 diabetes mellitus) : How to access health information online - Detail Indication: Diabetes mellitus type 2, uncontrolled (Renamed from Uncontrolled type 2 diabetes mellitus) Diabetes mellitus type 2, uncontrolled (Renamed from Uncontrolled type 2 diabetes mellitus) : Patient Instructions Indication: Diabetes mellitus type 2, uncontrolled (Renamed from Uncontrolled type 2 diabetes mellitus) Diabetes mellitus type 2, uncontrolled (Renamed from Uncontrolled type 2 diabetes mellitus) : How to access health information online Indication: Diabetes mellitus type 2, uncontrolled (Renamed from Uncontrolled type 2 diabetes mellitus) Diabetes mellitus type 2, uncontrolled (Renamed from Uncontrolled type 2 diabetes mellitus) : How to access health information online - Detail Indication: Diabetes mellitus type 2, uncontrolled (Renamed from Uncontrolled type 2 diabetes mellitus) Diabetes mellitus type 2, uncontrolled (Renamed from Uncontrolled type 2 diabetes mellitus) : Patient Instructions Indication: Diabetes mellitus type 2, uncontrolled (Renamed from Uncontrolled type 2 diabetes mellitus) BMI 33.0-33.9,adult : How to access health information online Indication: BMI 33.0-33.9,adult BMI 33.0-33.9,adult : How to access health information online - Detail Indication: BMI 33.0-33.9,adult BMI 33.0-33.9,adult : Patient Instructions Indication: BMI 33.0-33.9,adult Nonsmoker : How to access health information online Indication: Nonsmoker Nonsmoker : How to access health information online - Detail Indication: Nonsmoker Nonsmoker : Patient Instructions Indication: Nonsmoker BMI 34.0-34.9,adult : How to access health information online Indication: BMI 34.0-34.9,adult BMI 34.0-34.9,adult : How to access health information online - Detail Indication: BMI 34.0-34.9,adult BMI 34.0-34.9,adult : Patient Instructions Indication: BMI 34.0-34.9,adult Diabetes mellitus type 2, uncontrolled (Renamed from Uncontrolled type 2 diabetes mellitus) : How to access health information online Indication: Diabetes mellitus type 2, uncontrolled (Renamed from Uncontrolled type 2 diabetes mellitus) Diabetes mellitus type 2, uncontrolled (Renamed from Uncontrolled type 2 diabetes mellitus) : How to access health information online - Detail Indication: Diabetes mellitus type 2, uncontrolled (Renamed from Uncontrolled type 2 diabetes mellitus) Diabetes mellitus type 2, uncontrolled (Renamed from Uncontrolled type 2 diabetes mellitus) : Patient Instructions Indication: Diabetes mellitus type 2, uncontrolled (Renamed from Uncontrolled type 2 diabetes mellitus) Encounter for pre-employment examination : How to access health information online Indication: Encounter for pre-employment examination Encounter for pre-employment examination : How to access health information online - Detail Indication: Encounter for pre-employment examination Encounter for pre-employment examination : Patient Instructions Indication: Encounter for pre-employment examination Encounter for pre-employment examination : How to access health information online - Detail Indication: Encounter for pre-employment examination Cough : Patient Instructions Indication: Cough Encounters Office Visit On: 05-Jun-2018 13:19 Encounter Reason: Insurance Physical Exam - Female - The patient feels well with minor complaints, has good energy level and is sleeping well. Pap smear: Date: (1 yr). Contraceptive history: The current method of contrac End: 05-Jun-2018 14:00 eption is tubal ligation. Nutrition: balanced diet. Patient does not exercise. Patient sleeps 7 hours per night.Encounter Diagnosis: BMI 33.0-33.9,adult, Nonsmoker, Physical exam [facility] Office Visit On: 29-May-2018 12:47 Encounter Reason: Follow up tests - Date: (05/27/18)., [ADDITIONAL REASON] Follow up for chronic medical issues - The patient does not feel well (a little End: 29-May-2018 13:46 better today), has decreased energy level and is sleeping poorly. Patient has been compliant with instructions. Current medication use: no side effects and compliant with dosing regimen. Patient sleeps 7 hours per night. Nutrition: balanced diet and no supplemental vitamins & iron. The medical issues the patient is following up for include All identified problems below, blood sugar issues, high bl ood pressure and hypothyroid. fasting blood sugars :. Encounter Diagnosis: BMI 34.0- 34.9,adult, Nonsmoker, Hypercholesteremia, Hypothyroidism, Nutritional counseling, Diabetes mellitus type 2, uncontrolled (Renamed from Uncontrolled type 2 diabetes mellitus), Thyroid nodule, Aortic valve disorder [facility] Office Visit On: 21-May-2018 13:01 Encounter Reason: forms - FMLA paperwork needs fixedEncounter Diagnosis: BMI 34.0- 34.9,adult, Nonsmoker, Muscle strain of chest wall, initial encounter, Rib pain on left side End: 21-May-2018 13:54 [facility] Office Visit On: 14-May-2018 12:34 Encounter Reason: Follow up ER - Reason for hospitalization note: (chest paina nd I ahve em[facility] to er and cardio it is muscles). Patient has been compliant with instructions. Current medication use: no side effects.Encounter Diagnosis: Nonsmoker, End: 14-May-2018 13:27 BMI 34.0-34.9,adult, Chest wall pain, Diabetes mellitus type 2, uncontrolled (Renamed from Uncontrolled type 2 diabetes mellitus), Aortic valve disorder, Yeast vaginitis, Muscle strain of chest wall, initial encounter [facility] Office Visit On: 14-Jan-2018 12:52 Encounter Reason: Follow up for chronic medical issues - The patient feels well with minor complaints, has good energy level and is sleeping well. Patient has been compliant with instructions. Current medication use: no End: 14-Jan-2018 14:08 side effects and compliant with dosing regimen. Patient sleeps 7 hours per night. Nutrition: balanced diet and no supplemental vitamins & iron. The medical issues the patient is following up for inc lude All identified problems below, blood sugar issues, high blood pressure and hypothyroid. blood pressure range :.Encounter Diagnosis: Hypercholesteremia, Thyroid nodule, Hypothyroidism, Diabetes mellitus type 2, uncontrolled (Renamed from Uncontrolled type 2 diabetes mellitus), Nonsmoker, BMI 34.0-34.9,adult, Nutritional counseling, Costochondritis [facility] Office Visit On: 10-Oct-2017 13:06 Encounter Reason: Follow up for chronic medical issues - The patient feels well with minor complaints, has good energy level and is sleeping well. Patient has been compliant with instructions. Current medication use: no End: 10-Oct-2017 13:49 side effects and compliant with dosing regimen. Patient sleeps 7 hours per night. Nutrition: balanced diet and no supplemental vitamins & iron. The medical issues the patient is following up for inc lude All identified problems below, blood sugar issues, high blood pressure and hypothyroid. blood pressure range :., [ADDITIONAL REASON] Follow up tests - Date: (10/09/17). Encounter Diagnosis: Diabetes mellitus type 2, uncontrolled (Renamed from Uncontrolled type 2 diabetes mellitus), Body mass index 35.0-35.9, adult, Hypothyroidism, Thyroid nodule, Nutritional counseling, Aortic valve disorder, Polycystic ovaries (256.4), Hypercholesteremia, Nonsmoker [facility] Phone Encounter On: 06-Oct-2017 17:27 Encounter Diagnosis: Diabetes mellitus type 2, uncontrolled (Renamed from Uncontrolled type 2 diabetes mellitus), Hypothyroidism End: 06-Oct-2017 17:30 [facility] Phone Encounter On: 01-Sep-2017 9:31 Encounter Diagnosis: Eye exam, routine End: 01-Sep-2017 10:14 [facility] Lab Order On: 29-Aug-2017 15:07 Encounter Diagnosis: Aortic valve disorder End: 29-Aug-2017 15:11 [facility] Office Visit On: 30-Jun-2017 10:21 Encounter Reason: Follow up tests - Date: (06/25/17 thyroid u/s).Encounter Diagnosis: Nonsmoker, BMI 33.0-33.9,adult, Thyroid nodule, Diabetes mellitus type 2, uncontrolled (Renamed from Uncontrolled type 2 diabetes mellitus) End: 30-Jun-2017 11:07 [facility] Office Visit On: 12-Jun-2017 13:28 Encounter Reason: Follow up tests - Date: (06/02 and 06/04/17 labs)., [ADDITIONAL REASON] Follow up for chronic medical issues - The patient feels well with minor complai End: 12-Jun-2017 14:32 nts, has good energy level and is sleeping well. Patient has been compliant with instructions. Current medication use: no side effects and compliant with dosing regimen. Patient sleeps 8 hours per night . Nutrition: balanced diet and no supplemental vitamins & iron. The medical issues the patient is following up for include All identified problems below, blood sugar issues and high blood pressure. Encounter Diagnosis: BMI 34.0-34.9,adult, Nonsmoker , Diabetes mellitus type 2, uncontrolled (Renamed from Uncontrolled type 2 diabetes mellitus), Hypothyroidism, Aortic valve disorder, Goiter (240.9), Nutritional counseling [facility] Office Visit On: 02-Jun-2017 11:13 Encounter Reason: Physical female exam - Last seen between 6-12 months ago. General health: feels well with minor complaints, has good energy level and is sleeping well. The patient's appetite is normal. Nutrition: yazmin End: 02-Jun-2017 12:20 l/adequate. Exercises 0 days per week. Sleeps on average 7 hours per night. Normal bowel and bladder habits. Safety measures include appropriate use of safety belts , but do not include home smoke detec tors. There are no current emotional problems. screening, Pap smear (12/29).Encounter Diagnosis: Nonsmoker, BMI 34.0-34.9,adult, Annual physical exam, Hypothyroidism, Diabetes mellitus type 2, uncontrolled (Renamed from Uncontrolled type 2 diabetes mellitus), Nutritional counseling [facility] Office Visit On: 20-Jun-2016 9:28 Encounter Reason: Follow up for chronic medical issues - The patient feels well with minor complaints, has good energy level and is sleeping well. Patient has been compliant with instructions. Current medication use: no End: 20-Jun-2016 10:16 side effects and compliant with dosing regimen. Patient sleeps 7 hours per night. Nutrition: balanced diet and no supplemental vitamins & iron. The medical issues the patient is following up for inc azul All identified problems below, blood sugar issues and hypothyroid.Encounter Diagnosis: Hypothyroidism, Pneumococcal vaccination given, Elevated serum globulin level, Body mass index 35.0-35.9, adult, Nonsmoker, Diabetes mellitus type 2, uncontrolled (Renamed from Uncontrolled type 2 diabetes mellitus) [facility] Office Visit On: 03-Jun-2016 11:10 Encounter Reason: Physical female exam - Last seen between 6-12 months ago. General health: does not feel well, has good energy level and is sleeping well. The patient's appetite is normal. Nutrition: normal/adequate. Ex End: 03-Jun-2016 11:38 ercises 0 days per week. Sleeps on average 7 hours per night. Normal bowel and bladder habits. Safety measures include appropriate use of safety belts and home smoke detectors. There are no current emotional problems. screening, Pap smear (12/29). Encounter Diagnosis: Hypothyroidism, Physical exam, Nonsmoker, Body mass index 35.0- 35.9, adult [facility] Office Visit On: 12-Sep-2015 10:45 Encounter Reason: Eye Redness - The last clinic visit was 1 day(s) ago. Symptoms include eye redness, eye discharge and eye itching. Symptoms are located in the left eye and right eye. Onset was sudden 1 day(s) ago. The End: 12-Sep-2015 11:33 symptoms occur constantly. The patient describes this as unchanged. Associated symptoms do not include photophobia, lid irritation, proptosis, fever, headache, nausea, vomiting, facial pain, facial rash or facial redness. The patient is not currently being treated for this problem. By report there is good compliance with treatment. Pertinent medical history does not include conjunctivitis, uveitis, brice bconjunctival hemorrhage, glaucoma, episcleritis, seasonal allergies, otitis media, sinusitis, dermatoses, diabetes, herpes simplex or herpes zoster. Presentation included eye redness, eye discharge and eye itching., [ADDITIONAL REASON] Cough - The onset of the cough has been gradual. The cough is characterized as productive of mucoid sputum. The amount of sputum produced is less than a half a cup per day. The cou gh occurs all the time. The symptoms have been associated with runny nose (yellow). the color of the sputum is yellowish. Encounter Diagnosis: Serous conjunctivitis, unspecified laterality, Upper respiratory infection (465.9) [facility] Office Visit On: 12-Jun-2015 8:25 Encounter Reason: Physical female exam - Last seen between 6-12 months ago. General health: feels well with no complaints, has good energy level and is sleeping well. The patient's appetite is normal. Nutrition: normal/a End: 12-Jun-2015 9:01 dequate. Exercises 2 days per week. Sleeps on average 7 hours per night. Normal bowel and bladder habits. Safety measures include appropriate use of safety belts and home smoke detectors. There are no c urrent emotional problems. screening, Pap smear ([facility] 2012 ).Encounter Diagnosis: Work Physical (V70.5), Diabetes type II,controlled no comp (250.00), Obesity,unspecified (278.00) [facility] Office Visit On: 30-Mar-2015 9:57 Encounter Reason: Follow up for chronic medical issues - The patient feels well with minor complaints and has decreased energy level. Patient has been non- compliant with instructions. Current medication use: experiencing End: 30-Mar-2015 11:11 side effects (diarrhea and stomach cramping with glucophage ). Patient sleeps 7 hours per night. Impact of disease: emotional impact-mild. Nutrition: balanced diet and supplemental vitamins. 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), Bicuspid Aortic Valve, Lumbago (724.2), Abnormal Cardiac Test (794.30) [facility] Refill Request On: 25-Aug-2014 8:52 Encounter Diagnosis: Yeast infection End: 25-Aug-2014 8:53 [facility] Phone Encounter On: 16-Aug-2014 15:23 Encounter Diagnosis: Sinus drainage End: 16-Aug-2014 15:27 [facility] Annotation/Addendum On: 10-Aug-2014 15:30 Encounter Diagnosis: Unspecified Diagnosis End: 10-Aug-2014 15:33 [facility] Office Visit On: 10-Aug-2014 14:49 Encounter Reason: Follow up acute care visit - The patient does not feel well, has decreased energy level and worsening. Patient has been compliant with instructions. The medical issues the patient is following up for in End: 10-Aug-2014 15:07 clude All identified problems below and other (cough).Encounter Diagnosis: Cough (786.2), BRONCHITIS, NOT SPECIFIED ACUTE OR CHRONIC (490.), Wheezing (786.07) [facility] Office Visit On: 03-Aug-2014 14:37 Encounter Reason: Cough - The onset of the cough has been sudden. The cough is characterized as dry. The cough occurs all the time. The symptoms are aggravated by supine posture. The symptoms have been associated with headache and wheezing. End: 03-Aug-2014 14:55 Encounter Diagnosis: Cough (786.2), Sinus drainage [facility] Office Visit On: 27-May-2014 8:33 Encounter Reason: Physical female exam - Last seen between 6-12 months ago. General health: feels well with minor complaints, has decreased energy level and is sleeping well. The patient's appetite is normal. Nutrition: End: 27-May-2014 9:19 normal/adequate. Exercises 0 days per week. Sleeps on average 7 hours per night. Normal bowel and bladder habits. Safety measures include appropriate use of safety belts and home smoke detectors. There are no current emotional problems. screening, mammography (2006), screening, Pap smear (December 2012 ) and screening, visual acuity (wears glasses and or contacts seen every 2 years ).Encounter Diagnosis: Aortic valve disorders (424.1), Glucose Intolerant (271.3), Work Physical (V70.5), Hypothyroidism(244.9) [facility] Office Visit On: 18-May-2013 15:21 Encounter Reason: Cough - Symptoms include cough, wheezing, runny nose and stuffy nose. The cough is described as productive (yellow mucus). Cough onset was day(s) ago. Symptoms are described as improving. Associated sym End: 18-May-2013 16:10 ptoms include postnasal drainage and headache.Encounter Diagnosis: Cough (786.2), CANDIDIASIS, MOUTH (THRUSH) (112.0) [facility] Phone Encounter On: 14-May-2013 14:37 Encounter Diagnosis: Bicuspid Aortic Valve End: 14-May-2013 14:38 [facility] Prescription Refill On: 27-Oct-2012 10:35 Encounter Diagnosis: Positive test (V72.42), Abnormal Cardiac Test (794.30) End: 27-Oct-2012 11:07 [facility] Phone Encounter On: 26-Oct-2012 18:23 Encounter Diagnosis: Positive test (V72.42) End: 26-Oct-2012 18:28 [facility] Office Visit On: 19-Oct-2012 8:11 Encounter Reason: Follow up tests - Date: (10.14.12).Encounter Diagnosis: Glucose Intolerant (271.3), Polycystic ovaries (256.4), Hypothyroidism(244.9) End: 19-Oct-2012 8:46 [facility] Lab Order On: 11-Jun-2012 8:40 Encounter Diagnosis: Hypothyroidism(244.9) End: 11-Jun-2012 8:44 [facility] Office Visit On: 03-Jun-2012 14:27 Encounter Reason: Cough - The onset of the cough has been sudden. The cough is characterized as dry. The cough occurs all the time. The symptoms are aggravated by supine posture. The symptoms have been associated with r End: 03-Jun-2012 16:24 unny nose, sore throat (resolved) and wheezing, while the symptoms have not been associated with fever, headache or hoarseness. Note for Cough : I am wheezing worse at night Encounter Diagnosis: Cough (786.2), Wheezing (786.07), BRONCHITIS, NOT SPECIFIED ACUTE OR CHRONIC (490.) [facility] Office Visit On: 07-May-2012 13:26 Encounter Reason: Follow up for chronic medical issues - The patient feels well with minor complaints (rash on face is worsening- was sent to rheum for possible Lupus and was negative), has good energy level and is sleep End: 07-May-2012 14:00 ing well. Patient has been compliant with instructions. Current medication use: experiencing side effects (thyroid med causing rash on forehead??), compliant with dosing regimen and considered effective by patient. Patient sleeps 7 hours per night. Nutrition: balanced diet and supplemental vitamins. The medical issues the patient is following up for include cardiac issues, high blood pressure and othe r (obesity , polycystic ovaries, goiter ). 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 Patient has been compliant with instructions. Current medication use: no side effects, compliant with dosing regime End: 18-Dec-2011 10:25 n and considered effective by patient. The medical issues the patient is following up for include All identified problems below and other (tonsillitis ).Encounter Diagnosis: TONSILLITIS, ACUTE (463.), Abnormal Cardiac Test (794.30) [facility] Annotation/Addendum On: 16-Dec-2011 13:28 Encounter Diagnosis: Abnormal blood chemistry (790.6) End: 16-Dec-2011 13:32 [facility] Phone Encounter On: 16-Dec-2011 13:18 Encounter Diagnosis: Abnormal blood chemistry (790.6) End: 16-Dec-2011 13:25 [facility] Annotation/Addendum On: 11-Dec-2011 16:13 Encounter Diagnosis: TONSILLITIS, ACUTE (463.) End: 11-Dec-2011 16:17 [facility] Office Visit On: 11-Dec-2011 13:10 Encounter Reason: Follow up acute care visit - The patient feeling better since last seen and improving. Patient has been compliant with instructions. Current medication use: no side effects and compliant with dosing reg End: 11-Dec-2011 14:00 imen. The medical issues the patient is following up for include All identified problems below and other (tonsilitis).Encounter Diagnosis: TONSILLITIS, ACUTE (463.), Bicuspid Aortic Valve, Elevated CRP (790.95), CANDIDIASIS, MOUTH (THRUSH) (112.0) [facility] Office Visit On: 10-Dec-2011 10:06 Encounter Reason: Follow up acute care visit - The patient does not feel well, has decreased energy level and worsening. Patient has been compliant with instructions. Current medication use: no side effects and compliant End: 10-Dec-2011 11:33 with dosing regimen. Patient sleeps 5 (broken) hours per night. The medical issues the patient is following up for include All identified problems below and other (pharyngitis).Encounter Diagnosis: TONSILLITIS, ACUTE (463.), CANDIDIASIS, MOUTH (THRUSH) (112.0), Dehydration(276.51), ACUTE PHARYNGITIS (462.) [facility] Office Visit On: 09-Dec-2011 14:04 Encounter Reason: Sore Throat - The last clinic visit was 3 day(s) ago. No changes in management were made at the last visit. Symptoms include sore throat (the pain is so bad i started taking left over percocet from c-se End: 09-Dec-2011 14:36 ction -thats how bad it hurts. x-ray in ER last nite clean no peritonsilar abscess) and fever, while symptoms do not include chills. The symptoms are symmetrical. The pain radiates to the left ear and r ight ear. The patient describes the pain as sharp. Onset was sudden. The symptoms occur constantly. The patient describes this as severe and worsening. Note for Sore Throat: went to urgent careand rap id was neg and waiting on cx but wants to make sure nothing else going on.Encounter Diagnosis: ACUTE PHARYNGITIS (462.) [facility] Office Visit On: 21-Nov-2011 13:34 Encounter Diagnosis: Rash (782.1) End: 21-Nov-2011 19:50 [facility] Office Visit On: 26-Sep-2011 12:01 Encounter Diagnosis: Rash (782.1) End: 26-Sep-2011 12:29 [facility] Office Visit On: 02-Aug-2011 12:52 Encounter Reason: Follow up tests - Diagnostic tests include other (labs). Date: (07-25-11). Current symptoms include other (fatigue amenorrhea ).Encounter Diagnosis: Hypothyroidism(244.9) End: 02-Aug-2011 13:13 [facility] Office Visit On: 25-Jul-2011 13:06 Encounter Diagnosis: AMENORRHOEA, NOS End: 25-Jul-2011 13:25 [facility] Annotation/Addendum On: 23-May-2011 10:56 Encounter Diagnosis: Glucose Intolerant (271.3) End: 23-May-2011 11:04 [facility] Phone Encounter On: 21-Feb-2011 13:49 Encounter Diagnosis: Chest pain (786.59) End: 21-Feb-2011 13:51 [facility] Annotation/Addendum On: 21-Feb-2011 13:40 Encounter Diagnosis: Chest pain (786.59) End: 21-Feb-2011 13:47 [facility] Office Visit On: 21-Feb-2011 10:44 Encounter Diagnosis: Lumbago (724.2), Chest pain (786.59) End: 21-Feb-2011 11:15 [facility] Office Visit On: 27-Dec-2010 11:42 Encounter Reason: Follow up for chronic medical issues - The patient feels well with no complaints, has good energy level and is sleeping well. Patient has been compliant with instructions. Current medication use: no chucky End: 27-Dec-2010 12:13 e effects, compliant with dosing regimen and considered effective by patient. Patient sleeps 7 hours per night. Impact of disease: emotional impact-mild. Nutrition: balanced diet and supplemental vitami ns. The medical issues the patient is following up for include cardiac issues, high blood pressure and other (obesity , polycystic ovaries, goiter ).Encounter Diagnosis: Glucose Intolerant (271.3), Obesity,unspecified (278.00), Aortic valve disorders (424.1) [facility] Office Visit On: 01-Jun-2010 8:20 Encounter Reason: Follow up for chronic medical issues - The patient feels well with no complaints ,has good energy level and is sleeping well. Patient has been compliant with instructions. Current medication use: no chucky End: 01-Jun-2010 9:29 e effects. Patient sleeps 7 hours per night. Impact of disease: no overall impact. Nutrition: balanced diet. The medical issues the patient is following up for include All identified problems below and cardiac issues. fasting blood sugars : (88 this am). 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 Patient has been compliant with instructions. Current medication use: no side effects. Patient sleeps 5 (5-7) hours per End: 01-Mar-2010 10:39 night. Nutrition: inappropriate diet. , [ADDITIONAL REASON] Follow up, Laboratory Test Results - Date: (06/05/09). 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 The course has been constant. The eye redness is described as moderate. Note for E End: 06-Feb-2010 22:39 ye redness: right eyePt also woke up this am with crustiness on her eye lids. Other drainage today has been clear. Some itching off and on, not bad. No eye pain.- eye wet and crusty and white of eye wa s red- -has had cold- for a month - yellow draiange- trying to get preg- dry cough no fever no sobEncounter Diagnosis: Upper respiratory infection (465.9), Acute Conjuctivitis (372.01) [facility] Phone Encounter On: 10-Nov-2009 7:35 [facility] End: 10-Nov-2009 7:39 Office Visit On: 05-Jun-2009 10:50 Encounter Reason: Follow up for chronic medical issues - The patient feels well with minor complaints ,has good energy level and is sleeping well. Patient has been compliant with instructions. Current medication use: no End: 05-Jun-2009 11:35 side effects ,compliant with dosing regimen and considered effective by patient. Patient sleeps 7 hours per night. Impact of disease: emotional impact-mild. Nutrition: balanced diet and supplemental vit amins. The medical issues the patient is following up for include blood sugar issues ,cardiac issues ,gastric reflux and other (obesity, polycystic ovaries ). 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 The course has been unchanged. The symptoms have been associated with cough and run End: 01-Feb-2009 12:28 ny nose (a little today), while the symptoms have not been associated with ear pain ,fever ,sinus pain or swelling of neck glands. Encounter Diagnosis: ACUTE PHARYNGITIS (462.) [facility] Office Visit On: 13-Apr-2007 11:43 Encounter Reason: Abdominal pain - The onset of the pain has been sudden and has been occurring in an intermittent pattern for 2 months. The course has been recurrent (several times per day). The pain is described as a m End: 13-Apr-2007 12:57 oderate (to severe) sharp pain ,dull ache and pressure sensation. The pain is described as being located in the epigastrium. The pain radiates to the right shoulder and left shoulder. The symptoms are a ggravated by exercise. The symptoms are relieved by eating and bending forward. Note for Abdominal pain: Right now pain is 2-3/10. None at times but up to 9- 10. Gallbladder removed 02/24/07. Cont to guan ve same Sx. Food sometimes affects it and othertimes it doesn't. Worse in the middle of the noc or morning. Looser stools since surgery. Any fevers. Appitite is okay. Full sooner. With exercise -05/25. Then can go away when she rests. Doesn't think anxiety makes it. Aleve occasionally, ASA daily. 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 The course has been increasing. The pain is described as a moderate stabbing and dul End: 10-Feb-2007 10:12 l ache. The pain is described as being located in the upper abdomen (pain upper abd. area Sat. nite, today pain is in R upper quad. radiating to back. States she has a history of Gallstones). The pain r adiates to the back. The symptoms are aggravated by lying down. The symptoms have no relieving factors. Note for Abdominal pain: Sep 2006 - CT Scan. Birthcontrol has changed. Prilosec. . Constant pain. Encounter Diagnosis: Abdominal Pain,RUQ(789.01), Gerd (530.81) [facility] Office Visit On: 01-Dec-2006 13:04 Encounter Reason: Follow up hospital - Reason for ER visit: note: (Open Heart Surgery). The patient feels well with minor complaints (Abd Pain, Seeping of Incision). Patient has been compliant with instructions. Current End: 02-Dec-2006 10:25 medication use: no side effects. Patient sleeps 10 hours per night. Nutrition: balanced diet. Hospital procedures performed were other (Open Heart Surgery). The hospital results of the other (Pt brought in results from ECHO done at [facility] were Note for Follow up hospital: November 18- Aortic Valve Stenosis. 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 Patient has been compliant with instructions. Current medication use: no side effects. The patient feels well with minor complaints (intermitent End: 16-Oct-2006 15:10 sl. abd. pain, on and off ). Patient sleeps 7 hours per night. Impact of disease: no overall impact. Nutrition: balanced diet. Note for Follow up ER: had chili and cheese, still stomach upsetEncounter Diagnosis: Epigastric pain (789.06), Gallstones (574.20), Glucose Intolerant (271.3) [facility] Office Visit On: 05-Oct-2006 17:08 [facility] End: 05-Oct-2006 17:09 Office Visit On: 19-Sep-2006 11:15 Encounter Reason: Sinusitis/ - The duration of the symptoms are 5 days The course has been gradually worsening. The sinusitis/ has no relieving factors. Associated features include The symptoms have been associated with End: 19-Sep-2006 11:53 cough (dry) ,nasal discharge/stuffy nose and sinus pain. Encounter Diagnosis: Acute sinusitis, unspecified (461.9) [facility] Office Visit On: 04-Sep-2006 10:43 Encounter Reason: Rash - The onset of the rash has been gradual and has been occurring in an intermittent pattern for 3 months. The course has been constant. The rash is characterized as red ,raised above the skin and gr End: 04-Sep-2006 11:22 ouped in crops. The rash was first seen on the lower extremity (right inner thigh ). It spread to the lower extremity (right inner thigh ). Note for Rash: need heart, see Dr. 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 The course has been increasing. The heartburn is characterized as burning. The symptoms are aggravated by stooping. The End: 14-Jun-2006 8:07 mptoms are relieved by antacids (TUMS HELP,NOT TRIED PRILOSEC). Note for Heartburn: IBUPROFEN TWO ROSALINE DAY, [ADDITIONAL REASON] Physical female exam - Last seen between 6-12 months ago. General health: feels well with minor complaints (spot on leg, Nausea) and has good energy level. The patient's appetite is normal. Nutrition: eating a variety of foods. Sleeps on average 7 hours per night. Note for Physica l female exam: NOT TAKE GLUCOPHAGE REGULARLY TIL 8-06 Encounter Diagnosis: Glucose Intolerant (271.3), Polycystic Ovarian Disease, Bicuspid Aortic Valve, Gerd (530.81) [facility] Historical Summary On: 12-Jun-2006 12:09 [facility] End: 12-Jun-2006 12:12 [facility]Kim[facility] Re[facility]; a guarantor
--- OUTSIDE RECORDS SUMMARY | 2018-12-07 02:53 | XMS RPT_ITS ---
:1985 Author Organization [place] Support Name Relationship Address Phone JAILENE FERRIS Unavailable [address] + [place] [address] [facility] Unavailable [address] + [place] [address] [facility] Unavailable [address] + [place] [address] AHMET FERRIS/JOSEE Unavailable [address] + [place] [address] [facility] Unavailable [address] + [place] [address] [facility] Unavailable [address] + [place] [address] AHMET FERRIS/JOSEE Unavailable [address] + [place] [address] [facility] Unavailable [address] + [place] [address] [facility] Unavailable [address] + [place] [address] AHMET FERRIS/JOSEE Unavailable [address] + [place] [address] [facility] Unavailable [address] + [place] [address] [facility] Unavailable [address] + [place] [address] AHMET FERRIS/JOSEE Unavailable [address] + [place] [address] [facility] Unavailable [address] + [place] [address] [facility] Unavailable [address] + [place] [address] DOTAHMET CRANDALL/JOSEE Unavailable [address] + [place] [address] [facility] [place] Unavailable [address] + [place] [address] [facility] Unavailable [address] + [place] [address] AHMET FERRIS/JOSEE Unavailable [address] + [place] [address] [facility] Unavailable [address] + [place] [address] [facility] Unavailable [address] + [place] [address] DONNIETERAHMET SIMMS/JOSEE Unavailable [address] + [place] [address] [facility] Unavailable [address] + [place] [address] [facility] Unavailable [address] + [place] [address] DONNIETERAHMET SIMMS/JOSEE Unavailable [address] + [place] [address] [facility] Unavailable [address] + [place] [address] [facility] Unavailable [address] + [place] [address] AHMET FERRIS/JOSEE Unavailable [address] + [place] [address] [facility] Unavailable [address] + [place] [address] [facility] Unavailable [address] + [place] [address] AHMET FERRIS/JOSEE Unavailable [address] + [place] [address] [facility] Unavailable [address] + [place] [address] [facility] Unavailable [address] + [place] [address] AHMET FERRIS/JOSEE Unavailable [address] + [place] [address] [facility] Unavailable [address] + [place] [address] [facility] Unavailable [address] + [place] [address] AHMET FERRIS/JOSEE Unavailable [address] + [place] [address] [facility] Unavailable [address] + [place] [address] [facility] Unavailable [address] + [place] [address] AHMET FERRIS/JOSEE Unavailable [address] + [place] [address] [facility] Unavailable [address] + [place] [address] [facility] Unavailable [address] + [place] [address] [facility] Unavailable [address] + [place] [address] AHMET FERRIS/JOSEE Unavailable [address] + [place] [address] [facility] Unavailable [address] + [place] [address] [facility] Unavailable [address] + [place] [address] Care Team Providers Name Role Phone KODY KIM Attending Unavailable KODY KIM Attending Unavailable KODY KIM Referring Unavailable ZACH GARCIA Attending Unavailable DANNY, ILDA Referring Unavailable DANNY, ILDA Primary Care Unavailable Oleghe, Efewongbe Attending Unavailable Oleghe, Efewongbe Referring Unavailable Oleghe, Efewongbe Attending Unavailable Oleghe, Efewongbe Referring Unavailable Oleghe, Efewongbe Primary Care Unavailable ASSESSMENT, HEALTH RISK Attending Unavailable ASSESSMENT, HEALTH RISK Referring Unavailable Danny, Ilda Primary Care Unavailable Gillian Gonzales D.C. Attending Unavailable Danny, Ilda Referring Unavailable Danny, Ilda Primary Care Unavailable Danny, Ilda Attending Unavailable Danny, Ilda Referring Unavailable Danny, Ilda Primary Care Unavailable Dossie, Gillian Flores Attending Unavailable Danny, Ilda Referring Unavailable Danny, Ilda Primary Care Unavailable Dossie, Gillian BurlesonC. Attending Unavailable Danny, Ilda Referring Unavailable Tammi Machado Attending Unavailable Danny, Ilda Referring Unavailable Dossie, Gillian BurlesonCLizeth Attending Unavailable Danny, Ilda Referring Unavailable Dossie, Gillian BurlesonCLizeth Attending Unavailable Danny, Ilda Referring Unavailable Danny, Ilda Primary Care Unavailable Dossie, Gillian BurlesonCLizeth Attending Unavailable Danny, Ilda Referring Unavailable Dossie, Gillian BurlesonC. Attending Unavailable Danny, Ilda Referring Unavailable Danny, Ilda Primary Care Unavailable Danny, Ilda Attending Unavailable Danny, Ilda Referring Unavailable Danny, Ilda Primary Care Unavailable Dossie, Gillian BurlesonC. Consulting Unavailable Danny, Ilda Primary Care Unavailable Suresh Allen Attending Unavailable Dossie, Gillian Leo.CLizeth Attending Unavailable Danny, Ilda Referring Unavailable PROBLEMS PROBLEMS DATE TYPE CONDITION / CODE ATTENDING STATUS SOURCE 09/23/2018 Unknown E11.65 - Type 2 Oleghe, Active [place] diabetes mellitus [facility] with hyperglycemia Hospital / E11.65(ICD-10) Repository 09/23/2018 Unknown E03.9 - Oleghe, Active [place] Hypothyroidism, [facility] unspecified / Hospital E03.9(ICD-10) Repository 09/23/2018 Unknown E04.1 - Nontoxic Oleghe, Active [place] single thyroid [facility] nodule / Hospital E04.1(ICD-10) Repository 09/23/2018 Unknown Z01.00 - Encounter Oleghe, Active [place] for examination of [facility] eyes and vision Hospital without abnormal Repository findings / Z01.00(ICD-10) 09/23/2018 Unknown E11.9 - Type 2 Oleghe, Active [place] diabetes mellitus [facility] without Hospital complications / Repository E11.9(ICD-10) 09/23/2018 Unknown Q23.0 - Congenital Oleghe, Active [place] stenosis of aortic [facility] valve / Hospital Q23.0(ICD-10) Repository 09/23/2018 Unknown Q23.1 - Congenital Oleghe, Active [place] insufficiency of [facility] aortic valve / Hospital Q23.1(ICD-10) Repository 07/02/2018 Unknown M99.02 - Segmental DossiGillian hollingsworth Active [place] and somatic [facility] dysfunction of [facility] thoracic region / Repository M99.02(ICD-10) 07/02/2018 Unknown M54.14 - Dossie, Gillian Active [place] Radiculopathy, [facility] thoracic region / Hospital M54.14(ICD-10) Repository 08/05/2018 Unknown S29.011D - Strain Danny, Active [place] of [facility] tendon of front Hospital wall of thorax, Repository subsequent encounter / S29.011D(ICD-10) PROCEDURES PROCEDURES No Procedure Records FoundRESULTS RESULTS CNOV Observed: 10/08/2018 Status: COMPLETED Source: [place] 1:20 PM [facility] REPOSITORY Office Visit (WOOB) MATTLISA L ([id number]) 1985 F Date Time Provider Department 10/08/18 1:20 PM KODY KIM During your visit today, we recorded the following information about you: Blood pressure Weight Height Last Period 112/72 89.8 kg 1.702 m 09/23/18 Kody Kim MD 10/08/2018 2:19 PM Signed Lisa Reis is a 32 year old who presents for her annual gynecologic exam. Menses: regular. Contraception: tubal ligation HPV vaccine: N/A Last Pap: 2016 normal HPV: negative History of abnormal pap: No Last mammogram: never Obstetric History T0 L3 SAB1 TAB0 Ectopic0 Multiple0 Live Births1 PAST MEDICAL HISTORY Diagnosis Date - Aortic valve disorders Aortic valve disorders-stenosis - Diabetes mellitus (HCC) - Diffuse cystic mastopathy - Hypertension possibly d/t nuvaring - Hypothyroid - Irregular menstrual cycle Irregular periods - Migraine without aura - Peripheral vascular disease (HCC) - PMH - PAST MEDICAL HISTORY OF glucose intolerance - Unspecified asthma(493.90) as child PAST SURGICAL HISTORY Procedure Laterality Date - DELIVERY ONLY 12/14/08 11/14/10 , low transverse - DELIVERY ONLY 04/27 - HEART VALVE REPAIR - HEART VALVE REPLACEMENT - LAP CHOLECYSTECT/CHOLANGIOGRAPHY 02/24/07 - LIGATE FALLOPIAN TUBE 04/27 Tubal ligation - PAST SURGICAL HISTORY OF 1991 heart cath for suspected ASD - PAST SURGICAL HISTORY OF wisdom teeth - PAST SURGICAL HISTORY OF 11/18/06 aortic valve re: assending aortic anneurysm stent placement - PAST SURGICAL HISTORY OF needle breast BX - PERCUT AORTIC VALVULOPLASTY 1992 - PERIPHERAL VASCULAR INTERVENTION FAMILY HISTORY Problem Relation Age of Onset - Thyroid Mother Assending aortic anneurysm - Hypertension Mother Aortic valve replacement - Diabetes Father - Hypertension Father - Lipids Father - Multiple Sclerosis Sister 30 - Heart Maternal Grandmother a fib - Emphysema Maternal Grandmother - Osteoporosis Maternal Grandmother - Prostate Cancer Maternal Grandfather - Arthritis Maternal Grandfather - Diabetes Paternal Grandfather - Breast Cancer Maternal Aunt at age 47 SOCIAL HISTORY Social History Substance Use Topics - Smoking status: Never Smoker - Smokeless tobacco: Never Used - Alcohol use No REVIEW OF SYSTEMS Abdomen: No abdominal pain, nausea, vomiting, diarrhea, or constipation. No bloating, early satiety, indigestion, or increased flatulence. Bladder: No dysuria, gross hematuria, urinary frequency, urinary urgency, or incontinence. Breast: No breast lumps, nipple d/c, overlying skin changes, redness or skin retraction. Allergies and current medication updated:Yes EXAM: There were no vitals taken for this visit. GENERAL: pleasant, female in no apparent distress BREAST: soft, non-tender, symmetric, no dominant mass, normal nipple-areolar complex, no lymphadenopathy and no nipple discharge CHEST: Normal inspiratory effort ABDOMEN: soft, non-tender and no masses PELVIC: external genitalia normal, normal Bartholin's glands, urethra, Weidman's glands, no vulvar lesions, no cervical lesions, good vaginal support, physiologic discharge present, normal appearing perineal body and perianal region BIMANUAL: uterus normal size, shape and consistency, no adnexal masses and non-tender RECTOVAGINAL: deferred. NEURO: alert and oriented x3,exam grossly non-focal EXTREMITIES: normal ASSESSMENT/PLAN: 1) Health maintenance: Pap/HPV up to date. Nutrition, exercise and routine health maintenance exams reviewed. 2) Contraception: tubal ligation. 3) Follow up one year or sooner as needed Kody Kim MD Referring Provider: KODY KIM [[id number]] Allergies As of Date: 10/08/2018 Noted Allergy Reaction ADHESIVE TAPE (ROSINS) 11/13/2006 Comments: tears skin SULFA (SULFONAMIDE ANTIBIOTICS) 10/25/2005 4 - Hives Date Reviewed: 10/08/2018 Reviewed by: Kody Kim - Fully Assessed Reason for Visit: Yearly Exam [187] Primary Visit Diagnosis:Encounter for gynecological examination without abnormal finding [Z01.419] Prescriptions as of 10/08/2018 Sig: VICTOZA 3-KIT SUBCUTANEOUS Inject subcutaneously. SITAGLIPTIN 25 MG TABLET Take 25 mg by mouth once heriberto* CHLORTHALIDONE 25 MG TABLET Take 25 mg by mouth once heriberto* METFORMIN 500 MG TABLET Take 500 mg by mouth twice da* METOPROLOL TARTRATE 100 MG TA* Take 1 tablet by mouth twice * ZANTAC ORAL Take 150 mg by mouth. ASPIRIN 81 MG CHEWABLE TABLET Take 1 tablet by mouth once d* LEVOTHYROXINE 100 MCG CAPSULE Take 100 mcg by mouth once da* LEVALBUTEROL HFA 45 MCG/ACTUA* Inhale 2 Puffs as instructed * Problem List As Of Date 10/08/2018 Noted Resolved Aortic valve disorders [I35.9] INVALID FOR* More... AORTIC ANEURYSM NOS [I71.9] INVALID FOR* More... OBESITY NOS [E66.9] INVALID FOR* More... Routine general medical examination at a health*INVALID FOR*01/08/2012 More... CHOLELITHIASIS NOS [K80.20] INVALID FOR* More... ABN BLOOD CHEMISTRY NEC [R79.89] INVALID FOR* More... IMPAIRED FASTING GLUCOSE [R73.01] INVALID FOR* More... ESOPHAGEAL REFLUX [K21.9] INVALID FOR* More... ABNORMAL LIVER FUNCTION STUDY [R94.5] INVALID FOR* More... Supervision of Other High-Risk [O09.8*INVALID FOR*08/16/2009 Rosacea [L71.9] INVALID FOR* Pre-op testing [Z01.818] INVALID FOR* More... More... Atelectasis/FVO. [Z99.11] INVALID FOR* More... Pain, acute postoperative [G89.18] INVALID FOR* More... SUMMARY [V999.95] INVALID FOR* More... discharge [V999.01] INVALID FOR* More... History of gestational diabetes [Z86.32] INVALID FOR* More... Hypothyroid [E03.9] INVALID FOR* More... Disposition: Return in about 1 year (around 10/08/2019) for Routine SURGERY TECH exam. Follow-up and Disposition History Recorded Encounter Status:Closed by KODY KIM MD on 10/08/18 PROGRESS Observed: 10/08/2018 Status: COMPLETED Source: [place] 1:19 PM [facility] REPOSITORY HNO ID: [id number] Author: Kody Kim Service: (none) Author Type: Physician Type: Progress Notes Filed: 10/08/2018 2:19 PM Note Text: Lisa Reis is a 32 year old who presents for her annual gynecologic exam. Menses: regular. Contraception: tubal ligation HPV vaccine: N/A Last Pap: 2016 normal HPV: negative History of abnormal pap: No Last mammogram: never Obstetric History T0 L3 SAB1 TAB0 Ectopic0 Multiple0 Live Births1 PAST MEDICAL HISTORY Diagnosis Date - Aortic valve disorders Aortic valve disorders-stenosis - Diabetes mellitus (HCC) - Diffuse cystic mastopathy - Hypertension possibly d/t nuvaring - Hypothyroid - Irregular menstrual cycle Irregular periods - Migraine without aura - Peripheral vascular disease (HCC) - PMH - PAST MEDICAL HISTORY OF glucose intolerance - Unspecified asthma(493.90) as child PAST SURGICAL HISTORY Procedure Laterality Date - DELIVERY ONLY 12/14/08 11/14/10 , low transverse - DELIVERY ONLY 04/27 - HEART VALVE REPAIR - HEART VALVE REPLACEMENT - LAP CHOLECYSTECT/CHOLANGIOGRAPHY 02/24/07 - LIGATE FALLOPIAN TUBE 04/27 Tubal ligation - PAST SURGICAL HISTORY OF 1991 heart cath for suspected ASD - PAST SURGICAL HISTORY OF wisdom teeth - PAST SURGICAL HISTORY OF 11/18/06 aortic valve re: assending aortic anneurysm stent placement - PAST SURGICAL HISTORY OF needle breast BX - PERCUT AORTIC VALVULOPLASTY 1992 - PERIPHERAL VASCULAR INTERVENTION FAMILY HISTORY Problem Relation Age of Onset - Thyroid Mother Assending aortic anneurysm - Hypertension Mother Aortic valve replacement - Diabetes Father - Hypertension Father - Lipids Father - Multiple Sclerosis Sister 30 - Heart Maternal Grandmother a fib - Emphysema Maternal Grandmother - Osteoporosis Maternal Grandmother - Prostate Cancer Maternal Grandfather - Arthritis Maternal Grandfather - Diabetes Paternal Grandfather - Breast Cancer Maternal Aunt at age 47 SOCIAL HISTORY Social History Substance Use Topics - Smoking status: Never Smoker - Smokeless tobacco: Never Used - Alcohol use No REVIEW OF SYSTEMS Abdomen: No abdominal pain, nausea, vomiting, diarrhea, or constipation. No bloating, early satiety, indigestion, or increased flatulence. Bladder: No dysuria, gross hematuria, urinary frequency, urinary urgency, or incontinence. Breast: No breast lumps, nipple d/c, overlying skin changes, redness or skin retraction. Allergies and current medication updated:Yes EXAM: There were no vitals taken for this visit. GENERAL: pleasant, female in no apparent distress BREAST: soft, non-tender, symmetric, no dominant mass, normal nipple-areolar complex, no lymphadenopathy and no nipple discharge CHEST: Normal inspiratory effort ABDOMEN: soft, non-tender and no masses PELVIC: external genitalia normal, normal Bartholin's glands, urethra, Weidman's glands, no vulvar lesions, no cervical lesions, good vaginal support, physiologic discharge present, normal appearing perineal body and perianal region BIMANUAL: uterus normal size, shape and consistency, no adnexal masses and non-tender RECTOVAGINAL: deferred. NEURO: alert and oriented x3,exam grossly non-focal EXTREMITIES: normal ASSESSMENT/PLAN: 1) Health maintenance: Pap/HPV up to date. Nutrition, exercise and routine health maintenance exams reviewed. 2) Contraception: tubal ligation. 3) Follow up one year or sooner as needed Kody Kim MD THYROID Observed: 10/02/2018 Status: F Source: [place] 12:56 PM [facility] REPOSITORY [facility] Imaging Services [address] [place] [address] Thyroid MR#: [id number] Acct: [id number] Name: LISA REIS Rep #: [id number] : 1985 F 32 From: Theresa Wright MD PCP: Jonas Sweet MD Status: REG CLI Study: Thyroid Date of Exam: 10/02/18 Exam# [id number] Ordering Dr: Jonas Sweet MD STUDY: THYROID ULTRASOUND REASON FOR EXAM: Female, 32 years old. Thyroid nodule follow-up TECHNIQUE: Ultrasound evaluation of the thyroid was performed with real-time and static petit-scale imaging. COMPARISON: June 25, 2017 FINDINGS: RIGHT LOBE: The right lobe of the thyroid gland measures 4.0 x 1.4 x 1.6 cm. There is a heterogeneous echotexture. There are no demonstrated solid, cystic or complex lesions. LEFT LOBE: The left lobe of the thyroid gland measures 4.2 x 1.6 x 1.9 cm. There is an stable solid appearing upper pole nodule measuring 1.2 x 1.0 x 1.5 cm. There is a stable solid-appearing lower pole nodule measuring 3.0 x 3.0 x 4.0 mm. ISTHMUS: The isthmus measures 4 mm . The regional lymph nodes are normal. US/Thyroid IMPRESSION: Stable thyroid glands. Inhomogeneity. Stable solid appearing nodules left thyroid. Electronically Signed: Theresa Wright MD at 15:13 EST Tel , Service support , CC: Jonas Sweet MD Instrument And Electrical Technician: Signed INTERNAL MEDICINE Observed: 09/25/2018 Status: F Source: [place] OFFICE VISIT 1:40 PM [facility] Internal Medicine [address] [place] [address] [address] [place] [address] OFFICE VISIT Date of Service: 09/23/18 MR#: [id number] Acct: [id number] Name: DANIELLAMARLISA L Rep #: [id number] : 1985 Provider: Jonas Sweet MD Age/Sex: 32/F Location: [facility] Status: Signed Intake Vital Signs09/23/18 Height 5 ft 7 in 09/23/18 Weight: 193 lb 09/23/18 Body Mass Index (BMI) 30.2 09/23/18 Blood Pressure 117/79 Intake Visit Reasons: EST CARE Chief Complaint: Est Care Is patient in pain?: No Allergies adhesive tape Allergy (Unknown, Verified 09/23/18 13:54) Unknown Sulfa (Sulfonamide Antibiotics) Allergy (Verified 09/23/18 13:54) Rash Medications Aspirin [Aspirin, Baby] 81 mg PO DAILY@0800 06/29/13 [History Confirmed 09/23/18] Levothyroxine [Synthroid] 100 mcg PO DAILY 06/29/13 [History Confirmed 09/23/18] Ranitidine [Zantac] 150 mg PO DAILY 07/06/17 [History Confirmed 09/23/18] Chlorthalidone [Hygroton] 25 mg PO DAILY 05/09/18 [History Confirmed 09/23/18] empagliflozin 25 mg tablet 25 mg PO DAILY 07/09/18 [History Confirmed 09/23/18] liraglutide 0.6 mg/0.1 mL (18 mg/3 mL) subcutaneous pen injector 1.8 mg SC DAILY ml 07/09/18 [History Confirmed 09/23/18] metformin 1,000 mg tablet 1,000 mg PO DAILY 07/09/18 [History Confirmed 09/23/18] metoprolol succinate ER 100 mg capsule sprinkle, ext. release 24 hr 100 mg PO DAILY 09/23/18 [History Confirmed 09/23/18] [facility] Medical History High cholesterol (Acute) High triglycerides (Acute) Asthma (Acute) Breast lump (Acute) Chronic headaches (Acute) GERD (gastroesophageal reflux disease) (Acute) Gallstones (Acute) Goiter (Acute) H/O transfusion of whole blood (Acute) H/O wisdom tooth extraction (Acute) Heart murmur (Acute) Hypothyroidism (Acute) Polycystic ovary (Acute) Type 2 diabetes mellitus (Acute) UTI (urinary tract infection) (Acute) Vision problem (Acute) heart catheterization (Acute) HTN (hypertension) (Chronic) Surgical History H/O aortic valve replacement (Acute) H/O aortic valvuloplasty (Acute) H/O: (Acute) Hx of cholecystectomy (Acute) Hx of tonsillectomy (Acute) S/P aneurysm repair (Acute) Family History Grandmother Asthma Hypertension Grandfather Asthma Arthritis Cancer Diabetes Aunt Breast cancer Autoimmune disease Uncle Cancer Mother Diabetes Thyroid disorder Father Diabetes Sister Autoimmune disease Social History Smoking Status: Never smoker second hand exposure: No alcohol intake: never substance use type: does not use HPI HPI Chief Complaint: Est Care Details: LISA REIS, is a 32yo F who presents to the office today to establish care. She has no acute complaints at this time. She has followed up with her children librarian at [facility] due to her history of bicuspid aortic valve status post repair/replacement.She routinely sees him yearly and has no concerns at this time. Also reports a history of hypothyroidism. Stable on levothyroxine. Had a biopsy done about a year ago which was noted to be benign per patient. Follows up with EVELYN Cardenas NP management of her diabetes mellitus type 2. Last A1c was 9.3. She however states that she has made changes and has lost about 25 pounds since May. ROS Const Constitutional: No chills, fatigue, fever(s), frequent falls, malaise, weakness, sleep problems or change in appetite Eyes Eyes: No blurry vision, change in vision, double vision, discharge or visual disturbances ENT ENT: No abnormal hearing, ear pain, ear pressure, tinnitus or dizziness/vertigo Resp Respiratory: No cough, shortness of breath or wheezing Cardio Cardiology: Positive for palpitations; no chest pain with exertion, shortness of breath, generalized swelling, irregular heart rhythm, lightheadedness, orthopnea or fast heart rate Gastro GI: No abdominal pain, change in bowel habits, constipation, nausea/dyspepsia or vomiting Genitourinary-Female: No difficulty urinating, burning urination, painful urination, urinary incontinence, urinary frequency, urinary urgency, urinary hesitancy, urinary retention, Frequent nighttime urination/ nocturia, sexual problems, genital lesions, abnormal vaginal bleeding, pelvic pain, vaginal dryness, vaginal odor or Vaginal Itching Musc Musculoskeletal: No joint pain, back pain, joint swelling, limited range of motion, numbness or tingling Skin Skin: No change in skin color, itching, rash or wounds Breast Breast: No breast lump or breast pain Neuro Neurology: No frequent falls, weakness, visual disturbances, abnormal hearing, numbness, tingling, unsteady gait/balance, dizziness, loss of vision or memory loss Psych Psychiatric: No change in appetite, No memory loss, No anxiety, No depression, No Thoughts of harming yourself/Others Endo Endocrine: No fatigue, heat intolerance, increased thirst/drinking, increased hunger or increased urination Aller/Imm Allergy/Immunologic: No wheezing, itchy eyes or seasonal allergy symptoms Quicny/Lymp Hematologic/Lymphatic: No easy bleeding, easy bruising or enlarged lymph nodes Exam Const General: cooperative, no acute distress Orientation: alert, awake, oriented x3 [facility] Head: atraumatic, normocephalic, normal to inspection Ears: hearing grossly normal bilaterally, TM's normal bilaterally Resp Effort AND Inspection: normal respiratory effort, able to speak in complete sentences Auscultation: Bilateral: Clear to Auscultation Cardio Rate: regular rate Rhythm: regular rhythm Heart Sounds: S1 normal, S2 normal GI Palpation: soft, no hepatosplenomegaly Neuro General: alert, awake, oriented x3, moves all extremities, CN's II-XI intact bilaterally Extrem General: no clubbing, cyanosis or edema Psych Appearance: grossly normal Mental Status: mental status grossly normal Mood: congruent mood Affect: normal affect Assessment AND Plan 1. Aortic stenosis due to bicuspid aortic valve Q23.0; Q23.1 Plan S/P Surgery. Doing well. Follows up closely with her Coat Ironer Hand ( Arvin Burgess MD ) at [facility]. Continue current management. Orders Referrals: 2. Hypothyroidism E03.9 Plan Stable. Also history of thyroid nodule. Status post biopsy which per patient was benign. Yearly ultrasounds recommended. Thyroid ultrasound ordered. Thyroid function studies also ordered. Continue current medication. Orders Orders: 3. Type 2 diabetes mellitus E11.9 Plan A1c now down to 6.5. She has made significant changes in her diet and has lost 25 pounds so far. Continue current medication and lifestyle/dietary modifications. Orders Referrals: 4. Hypertension I10 Plan Optimally controlled. Continue current medication and lifestyle/dietary modifications. This note was generated with [employer] dictation software. It may contain incorrect words, spelling, and punctuation that were not noted in checking the note before signing. Plan Detail Other Orders Orders: Referrals: Other Medications New: Goals Decrease pain and spasm Barriers Previous heart surgery Coding Level of Care Code Off vis,new,level 4 Diagnoses Aortic stenosis due to bicuspid aortic valve Q23.0; Q23.1 Hypothyroidism E03.9 Type 2 diabetes mellitus E11.9 Hypertension I10 09/25/18 1340 <Electronically signed by Jonas Sweet MD> Date Jonas Sweet MD Cosigner Signature: Date (if applicable) CC: ENDOCRINOLOGY VISIT Observed: 07/13/2018 Status: F Source: JESUS REPORT 7:58 AM [facility] REPOSITORY [facility] [address] [place] [address]. [address] [place] [address] OFFICE VISIT Date of Service: 07/09/18 MR#: [id number] Acct: [id number] Name: LISA REIS Rep #: [id number] : 1985 Provider: Tammi Machado NP Age/Sex: 32/F Location[place] [facility] [place]: Signed HPI History of present illness Lisa Reis is a 32 year old female who presents for consult of diabetes type 2. Diagnosed in 2013. Currently on jardiance, victoza and metformin which she takes as prescribed. Does not routinely monitor BG. Is overwhelmed by the diabetes and all the issues associated with it. Pt denies difficulty with injections or self monitoring of BG. Denies any signs of infection or irritation at site of injections. Reports taking insulin as directed At time of visit: -Pt denies symptoms of hypertensive emergency (CP,SOB,STOUT, or blurred vision) and hypotension(dizziness or lightheadedness) -Pt denies symptoms of hypoglycemia ( sweaty, confusion, anxiety, tremor, hunger, palpitations) and hyperglycemia ( polydipsia, polyuria) -Pt denies potential medication adverse effect. 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 Type: type 2 Glucose control symptoms: Denies daytime hypoglycemia, hypoglycemic with activity, nocturnal hypoglycemia or confusion at night Weight and fatigue symptoms: Denies snoring Cardiopulmonary symptoms: Denies chest pain at rest, dyspnea on exertion, lightheadedness or myalgias GI symptoms: Denies constipation, diarrhea, nausea/dyspepsia or vomiting Skin and extremity symptoms: Denies tingling/numbness/burning or poorly healing wound Other symptoms: Denies blurry vision or change in vision Pertinent visit history: Denies recent visit to ER, recent hospital admission or recent 911 calls Self monitoring: No Diabetes education in past year: No Sick day education - understands ketone testing: Yes Physical activity: regular Exam Const General: comfortable, in distress Nutritional Appearance: well nourished Orientation: oriented x3 HENMT Head: normal to inspection, atraumatic Ears: hearing grossly normal bilaterally Nose: external nose normal Face and sinus: normal facial exam Mouth: oral mucosae normal, moist mucous membranes Teeth and gingiva: dentition normal Eyes General: appearance normal, both eyes and all related structures Eyelids: eyelids normal Conjunctivae: conjunctivae normal Sclera: sclerae normal Resp Effort AND Inspection: normal respiratory effort, able to speak in complete sentences, symmetric chest movement Auscultation: Bilateral: Clear to Auscultation Cardio Rate: regular rate Rhythm: regular rhythm Heart Sounds: S2 normal, S1 normal Skin General: no rashes or lesions noted Wounds: no wounds Hair: normal Neuro General: oriented x3, moves all extremities Cognition: normal cognition Speech: speech normal Gait: normal gait Extrem General: normal to inspection, full ROM, normal capillary refill Psych Appearance: grossly normal Mental Status: mental status grossly normal Mood: congruent mood Affect: normal affect Speech and Movement: speech and movement normal Attitude: cooperative Thought Process: normal Thought Content: normal Judgment: judgment good Intake Vital Signs07/09/18 Height 5 ft 7 in 07/09/18 Weight: 210 lb 8 oz 07/09/18 Body Mass Index (BMI) 32.9 07/09/18 Blood Pressure 130/94 H 07/09/18 Blood Pressure Location Lt popliteal 07/09/18 Blood Pressure Position Sitting Intake Visit Reasons: Diabetes Mellitus Type 2 Chief Complaint: Test Specialist Required: No Accompanied by: Self Allergies adhesive tape Allergy (Unknown, Verified 07/09/18 10:48) Unknown Sulfa (Sulfonamide Antibiotics) Allergy (Verified 07/06/17 01:12) Rash Medications Aspirin [Aspirin, Baby] 81 mg PO DAILY@0800 06/29/13 [History Confirmed 07/09/18] Levothyroxine [Synthroid] 100 mcg PO DAILY 06/29/13 [History Confirmed 07/09/18] Metoprolol Succinate [Toprol Xl] 100 mg PO DAILY 06/29/13 [History Confirmed 07/09/18] Ranitidine [Zantac] 150 mg PO DAILY 07/06/17 [History Confirmed 07/09/18] Chlorthalidone [Hygroton] 25 mg PO DAILY 05/09/18 [History Confirmed 07/09/18] empagliflozin 25 mg tablet 25 mg PO DAILY 07/09/18 [History Confirmed 07/09/18] liraglutide 0.6 mg/0.1 mL (18 mg/3 mL) subcutaneous pen injector 1.8 mg SC DAILY ml 07/09/18 [History Confirmed 07/09/18] metformin 1,000 mg tablet 1,000 mg PO DAILY 07/09/18 [History Confirmed 07/09/18] Nurse's Note: blood sugars : low : high : pt not checking PFSH Medical History Asthma (Acute) Breast lump (Acute) Chronic headaches (Acute) GERD (gastroesophageal reflux disease) (Acute) Gallstones (Acute) Goiter (Acute) H/O transfusion of whole blood (Acute) H/O wisdom tooth extraction (Acute) Heart murmur (Acute) Hypothyroidism (Acute) Polycystic ovary (Acute) Type 2 diabetes mellitus (Acute) UTI (urinary tract infection) (Acute) Vision problem (Acute) heart catheterization (Acute) HTN (hypertension) (Chronic) Surgical History H/O aortic valve replacement (Acute) H/O aortic valvuloplasty (Acute) H/O: (Acute) Hx of cholecystectomy (Acute) Hx of tonsillectomy (Acute) S/P aneurysm repair (Acute) Family History Grandmother Asthma Hypertension Grandfather Asthma Arthritis Cancer Diabetes Aunt Breast cancer Autoimmune disease Uncle Cancer Mother Diabetes Thyroid disorder Father Diabetes Sister Autoimmune disease Social History Smoking Status: Never smoker second hand exposure: No alcohol intake: never substance use type: does not use ROS Const Constitutional: No anorexia, body ache, chills, fatigue, fever(s), frequent falls, decreased energy, malaise, night sweats, weakness, weight change, sleep problems, abnormal sleep pattern, change in appetite, other, headache(s), snoring or excessive sweating Eyes Eyes: Positive for other (08/01); no blurry vision, change in vision, double vision, discharge, dry eyes, bulging eyes, floaters, visual disturbances, eye pain, light sensitivity, spots in vision or tunnel vision ENT ENT: Positive for nasal congestion; no abnormal hearing, ear pain, ear discharge, ear pressure, hearing loss, tinnitus, dizziness/vertigo, balance problems, nosebleed/epistaxis, nasal obstruction, nose pain, sinus pressure, sinus pain, nasal discharge, post nasal drip, headache(s), facial pain, dental pain, dry mouth, bad breath, hoarseness, lip swelling, mouth lesions, mouth pain, sore throat, tongue swelling, throat swelling, other, difficulty swallowing or neck pain Resp Respiratory: No cough, change in phlegm color, chest congestion, excessive phlegm production, hemoptysis, pain on inspiration, shortness of breath, pain with cough, snoring, stridor, wheezing or other Cardio Cardiology: No chest pain at rest, chest pain with exertion, leg pain with exertion, excessive sweating, shortness of breath, dyspnea on exertion, generalized swelling, irregular heart rhythm, lightheadedness, orthopnea, radiating jaw, neck or arm pain, fast heart rate, slow heart rate, palpitations or other Gastro GI: No abdominal pain, belching, bloating, change in bowel habits, change in stool character, coffee ground emesis, constipation, cramping, diarrhea, heartburn, difficulty swallowing, feeling full early, excessive flatus, incontinent of stools, Vomiting blood/hematemesis, blood in stool, loose stools, Black,tarry stools, nausea/dyspepsia, pain with swallowing, vomiting or other Genitourinary-Female: No difficulty urinating, burning urination, painful urination, urinary incontinence, urinary frequency, urinary urgency, urinary hesitancy, urinary retention, blood in urine, Frequent nighttime urination/ nocturia, post void dribbling, suprapubic fullness, side pain, sexual problems, genital lesions, genital itching, hot flashes, abnormal periods, abnormal vaginal bleeding, absent period, painful periods, light periods, heavy periods, difficulty getting , painful intercourse, pelvic pain, vaginal dryness, vaginal odor, Vaginal Itching or other Musc Musculoskeletal: Positive for other (rib/muscle pain); no abnormal walking, joint pain, back pain, deformity, joint swelling, limited range of motion, loss of height, muscle cramps, muscle weakness, decreased muscle mass, body aches, neck pain, numbness, radiating pain into limb, stiffness or tingling Skin Skin: No acne, hair loss, change in hair, nail changes, boil, change in skin color, dry skin, redness, excessive hair growth, yellowing of the skin, lesions, itching, rash, skin pain, skin ulcer, sores, skin swelling, wounds or other Breast Breast: No other Neuro Neurology: No frequent falls, weakness, visual disturbances, abnormal hearing, headache(s), abnormal walking, numbness or tingling Psych Psychiatric: No abnormal sleep pattern, No change in appetite Endo Endocrine: No fatigue, other or excessive sweating Aller/Imm Allergy/Immunologic: No lip swelling, tongue swelling, throat swelling, wheezing or itchy eyes Assessment AND Plan Problems 1. Uncontrolled type 2 diabetes mellitus with hyperglycemia E11.65 Plan Reviewed medications with patient and use of each. Also discussed use of other medications based on findings of BG readings. We discussed how we can use her BG readings to improve her overall control. Reviewed basic diabetes self care and also carb counting for dietary aprroach. Patient needs to begin with basic approach and avoid feeling overwhelmed with this as she is working and has small children as well. Ask patient to begin checking one meal each day before the meal and 2 hours after while checking content of carbs eaten. Given immediate feedback she can make decisions based on this information moving forward. Discussed self care in other aspects regarding exercise, weight, foot care, and blood pressure. Plan Detail Additional Comments 1. Please schedule follow up in 1 month 2. Lab work one week before appointment. 3. Discussed importance of regular exercise and recommend starting or continuing a regular exercise program for good health. 4. The patient was encouraged to lose weight for good health 5. The importance of monitoring blood sugar regularly was reviewed. 6. The importance of monitoring the HBA1c level regularly was reviewed. 7. The importance of prper foot care and regularly checking feet to prevent sores and loss of limbs was reviewed. 8. The importance of keeping BP at or below 130/80 to prevent stroke, heart attacks, kidney failure, blindness was reviewed. [...] have you been bothered by any of the following problems? 1. Little interest or pleasure in doing things: not at all 2. Feeling down, depressed, or hopeless: not at all Total score: 0 If score is 2 or greater, continue Source: Developed by Drs. Dominick Byrd, Jinny Clark, Tl Evans and colleagues, with an educational kathia from [employer]. Scoring: Total Score Depression Severity Action 1-4 Minimal depression No action needed 5-9 Mild depression Repeat PHQ-9 at follow up 10-14 Moderate depression Make tx plan,consider counseling, fup, prescription 07/13/18 0758 <Electronically signed by Tammi ACUÑA> Date Tammi ACUÑA Cosigner Signature: Date (if applicable) CC: CHIROPRACTIC REPORT Observed: 07/06/2018 Status: F Source: ARABI 10:19 AM [facility] [address] [place] [address] OFFICE VISIT Date of Service: 07/01/18 MR#: [id number] Acct: [id number] Name: LISA REIS Rep #: [id number] : 1985 Provider: Gillian Maciel D.C. Age/Sex: 32/F Location: [facility] [place] Status: Signed Intake Vital Signs07/01/18 Height 5 ft 7 in 07/01/18 Weight: 225 lb 07/01/18 Body Mass Index (BMI) 35.2 Intake Visit Reasons: L [...] History Smoking Status: Never smoker HPI L collar bone : Chief Complaint: L collar bone pain Visit Number: 8 Details: LISA REIS is a 32 year old F who presents with decreased L collar bone pain. Lisa states that her pain is 98% better, at times she does experience a dull ache in the collar bone area. Lifting, twisting, and raising the arm no longer causes increased pain. Lisa denies any numbness, tingling, or radiculopathy. Location: L collar bone Duration: occasional Aggravating or associated factors: NA Relieving factors: chiro Pain Quality: aching, dull Exam Musc General: Yes normal posture, normal gait and joint tenderness (L sternocostal junx, T4,T5,T6) Thoracic/Lumbar Spine: thor and lumb spine abnorm to inspection (post surgical scarring at sternum), paraspinal tenderness (slightly improved), thoraco- lumbar spasm (slightly improved), thoraco-lumbar ROM normal Office Procedures Chiropractic Treatments Procedures Manipulation: 1-2 regions (T4,T5,T6) Assessment AND Plan 1. Segmental and somatic dysfunction of thoracic region M99.02 Orders Orders: 2. Thoracic neuritis M54.14 Orders Orders: Plan Detail Additional Comments Patient has improved ROM and decrease pain levels. She has returned to work with no exacerbation of pain. Recommend transitioning to PRN due to positive improvement of her condition. Goals Decrease pain and spasm Barriers Previous heart surgery Follow Up PRN Coding Level of Care Code No Charge Diagnoses Segmental and somatic dysfunction of thoracic region M99.02 Thoracic neuritis M54.14 Additional Codes Procedures - Manipulation: 1-2 regions (08624) 07/06/18 1019 <Electronically signed by Gillian Maciel D.C.> Date Gillian Maciel D.C. Cosigner Signature: Date (if applicable) CC: CHIROPRACTIC REPORT Observed: 06/18/2018 Status: F Source: ARABI 2:37 PM [facility] [address] [place], [place] [id number] OFFICE VISIT Date of Service: 06/18/18 MR#: [id number] Acct: [id number] Name: LISA REIS Rep #: [id number] : 1985 Provider: Gillian Maciel D.C. Age/Sex: 32/F Location: [facility] [place] Status: Signed Intake Vital Signs06/18/18 Height 5 ft 7 in 06/18/18 Weight: 225 lb 06/18/18 Body Mass Index (BMI) 35.2 Intake Visit Reasons: L [...] L thoracic pain Visit Number: 7 Details: LISA REIS is a 32 year old F who presents with L sided collar bone pain. She states that after returning to work her pain did not increase, leaving her with a slight ache that bands across the L collar bone area. Today Lisa rates her pain a 2/10 and describes it as a slight ache that comes and goes, she is able to clean her house, twist, and rotate her arm with no increased pain. At night the patient is still having trouble with soreness while rotating in bed, although she denies any numbness,tingling, or radiculopathy. Location: L collar bone area Duration: intermittent Aggravating or associated factors: rotation in bed Relieving factors: chiro Pain Quality: aching, dull, cramping Exam Musc General: Yes normal posture, normal gait and joint tenderness (L sternocostal junx, T4,T5,T6) Thoracic/Lumbar Spine: thor and lumb spine abnorm to inspection (post surgical scarring at sternum), pain with thoraco-lumbar ROM with lateral flexion to the right, with rotation to the right and other, paraspinal tenderness (slightly improved) on the left, thoraco-lumbar ROM limited, thoraco-lumbar spasm (slightly improved) on the left Office Procedures Chiropractic Treatments Procedures Manipulation: 1-2 regions (L sternocostal junx, T4,T5,T6) Assessment AND Plan 1. Segmental and somatic dysfunction of thoracic region M99.02 Orders Orders: 2. Thoracic neuritis M54.14 Orders Orders: Plan Detail Goals Decrease pain and spasm Barriers Previous heart surgery Follow Up 2 Weeks Coding Level of Care Code No Charge Diagnoses Segmental and somatic dysfunction of thoracic region M99.02 Thoracic neuritis M54.14 Additional Codes Procedures - Manipulation: 1-2 regions ([id number]) 06/18/18 1437 <Electronically signed by Gillian Maciel D.C.> Date Gillian Maciel D.C. Cosigner Signature: Date (if applicable) CC: CHIROPRACTIC REPORT Observed: 06/15/2018 Status: F Source: ARABI 10:37 AM [facility] [address] [place] [address] OFFICE VISIT Date of Service: 06/10/18 MR#: [id number] Acct: [id number] Name: LISA REIS Rep #: [id number] : 1985 Provider: Gillian Maciel D.C. Age/Sex: 32/F Location: [facility] [place] Status: Signed Intake Vital Signs06/10/18 Height 5 ft 7 in 06/10/18 Weight: 225 lb 06/10/18 Body Mass Index (BMI) 35.2 Intake Visit Reasons: rib [...] Social History Smoking Status: Never smoker HPI rib pain : Chief Complaint: L sided thoracic pain Visit Number: 6 Details: LISA REIS is a 32 year old F who presents with decreased L sided rib pain. She states that her pain throughout the day is minimal to none, although she is still experiencing a nagging ache at times when rolling over in bed. Today Lisa rates her pain a 2/10 and describes it as a dull ache that comes and goes. She was able to bend over and clean her home with no increased pain. She is returning to work next week and will follow up to monitor her condition after. Lisa denies any numbness, tingling, or radiculopathy. Location: L sided thoracic pain Duration: intermittent Aggravating or associated factors: rolling over in bed Relieving factors: chiro Pain Quality: aching, dull, cramping Exam Musc General: Yes normal posture, normal gait and joint tenderness (L sternocostal junx, T4,T5,T6) Thoracic/Lumbar Spine: thor and lumb spine abnorm to inspection (post surgical scarring at sternum), pain with thoraco-lumbar ROM, paraspinal [...] Additional Codes Procedures - Manipulation: 1-2 regions ([id number]) 06/15/18 1037 <Electronically signed by Gillian Maciel D.C.> Date Gillian Maciel D.C. Cosigner Signature: Date (if applicable) CC: CHIROPRACTIC REPORT Observed: 06/04/2018 Status: F Source: ARABI 10:29 AM [facility] [address] [place] [address] OFFICE VISIT Date of Service: 06/04/18 MR#: [id number] Acct: [id number] Name: LISA REIS Rep #: [id number] : 1985 Provider: Gillian Maciel D.C. Age/Sex: 32/F Location: [facility] [place] Status: Signed Intake Vital Signs06/04/18 Height 5 ft 7 in 06/04/18 Weight: 225 lb 06/04/18 Body Mass Index (BMI) 35.2 Intake Visit Reasons: thoracic [...] sided rib pain Visit Number: 5 Details: LISA REIS is a 32 year old F who presents with decreased rib pain. She states that after her adjustment her pain became minimal to none. Today Lisa rates her pain a 1/10 and states it is only a slight ache that comes and goes. She was able to sweep the floor, and mow the yard with no increased pain, at night she is still noticing a dull ache or cramp, although denies any numbness, tingling, or radiculopathy. Location: L sided rib pain Duration: intermittent Aggravating or associated factors: laying flat Relieving factors: chiro Pain Quality: aching, dull, cramping Exam Musc General: Yes normal posture, normal gait and joint tenderness (L sternocostal junx, T4,T5,T6) Thoracic/Lumbar Spine: thor and lumb spine abnorm to inspection (post surgical scarring at sternum), pain with thoraco-lumbar ROM with forward flexion, paraspinal tenderness (slightly improved) on the left greater than right (T4, T4, T6), thoraco- lumbar ROM limited with forward flexion, thoraco-lumbar spasm [...] Additional Codes Procedures - Manipulation: 3-4 regions ([id number]) 06/04/18 1029 <Electronically signed by Gillian Maciel D.C.> Date Gillian Maciel D.C. Cosigner Signature: Date (if applicable) CC: CHIROPRACTIC REPORT Observed: 06/02/2018 Status: F Source: ARABI 8:10 AM [facility] [address] [place] [address] OFFICE VISIT Date of Service: 06/01/18 MR#: [id number] Acct: [id number] Name: LISA REIS Rep #: [id number] : 1985 Provider: Gillian Maciel D.C. Age/Sex: 32/F Location: [facility] [place] Status: Signed Intake Vital Signs06/01/18 Height 5 ft 7 in 06/01/18 Weight: 225 lb 06/01/18 Body Mass Index (BMI) 35.2 Intake Visit Reasons: thoracic [...] sided rib pain Visit Number: 4 Details: LISA REIS is a 32 year old F who presents with decreased L sided rib pain. She states that after her last treatment she was sore and tender after, although a day later the pain began to decrease. Lisa is now able to rotate the arm, and lift with less pain. Today Lisa rates her pain a 3/10 and describes it as a deep ache, at times when lifting or pushing she does feel a catch with a sharp ache although it does subside. Lisa denies any numbness, tingling, or radiculopathy. Location: [...] left greater than right (T4, T4, T6), thoraco- lumbar ROM limited with forward flexion, thoraco-lumbar spasm [...] Additional Codes Procedures - Manipulation: 1-2 regions ([id number]) 06/02/18 0810 <Electronically signed by Gillian Maciel D.C.> Date Gillian Braunign Signature: Date (if applicable) CC: CHIROPRACTIC REPORT Observed: 06/01/2018 Status: F Source: ARABI 8:25 AM [facility] [address] [place] [address] OFFICE VISIT Date of Service: 05/26/18 MR#: [id number] Acct: [id number] Name: LISA REIS Rep #: [id number] : 1985 Provider: Gillian Maciel D.C. Age/Sex: 32/F Location: [facility] [place] Status: Signed Intake Vital Signs05/26/18 Height 5 ft 7 in 05/26/18 Weight: 225 lb 05/26/18 Body Mass Index (BMI) 35.2 Intake Visit Reasons: Rib [...] mg PO DAILY 05/09/18 [History Confirmed 05/09/18] [facility] Social History Smoking Status: Never smoker HPI Rib pain : Chief Complaint: L sided rib pain Visit Number: 1 Referral source: [facility] employee; [place] in [place] Details: LISA REIS is a 32 year old F [...] a burning that comes and goes. Today Lisa rates her pain a 4/10, and states it only comes on when lifting, rotation, or laying on her stomach. She denies any numbness, tingling, or radiculopathy. Onset: 05/12/18 Location: L upper rib pain Duration: intermittent Aggravating or associated factors: lifting, and [...] Neuro General: alert, awake, oriented x3, normal light touch, pain and propioception, no focal motor deficits Ortho Test CERVICAL THORACIC Kemps: Negative Schepelmanns pain: Left LUMBAR Office Procedures Chiropractic Treatments Procedures Manipulation: 1-2 regions (T5, T6, T7) Assessment AND Plan Problems 1. Thoracic neuritis M54.14 2. Segmental and somatic dysfunction of thoracic region M99.02 Plan Recommend acute care treatment plan. Orders Orders: Plan Detail Goals Decrease pain and spasm Barriers Previous heart surgery Follow Up 2x/wk/3wks Coding Level of Care Code Off vis,new,level 3 Diagnoses Thoracic neuritis M54.14 Segmental and somatic dysfunction of thoracic region M99.02 Additional Codes Procedures - Manipulation: 1-2 regions (09551) 06/01/18 6879 <Electronically signed by Gillian Maciel D.C.> Date Gillian Maciel D.C. Cosigner Signature: Date (if applicable) CC: CHIROPRACTIC REPORT Observed: 05/28/2018 Status: F Source: ARABI 2:13 PM [facility] [address] [place] [address] OFFICE VISIT Date of Service: 05/28/18 MR#: [id number] Acct: [id number] Name: MATTLISA Watkins Rep #: [id number] : 1985 Provider: Gillian Maciel D.C. Age/Sex: 32/F Location: [facility] Status: Signed Intake Vital Signs05/28/18 Height 5 ft 7 in 05/28/18 Weight: 225 lb 05/28/18 Body Mass Index (BMI) 35.2 Intake Visit Reasons: rib [...] 05/09/18 [History Confirmed 05/09/18] PFS Social History Smoking Status: Never smoker HPI rib pain: Chief Complaint: L sided rib pain Visit Number: 2 Details: LISA REIS is a 32 year old F who presents with L sided frontal rib pain. She states that after her treatment her pain did not decrease, but is wrapping into the L armpit and axillary area. Today Lisa rates her pain a 4/10 and describes it as a tight and deep ache that is constant, at times with a sudden movement it could be sharp and throbbing. Lisa denies any numbness, tingling, or radiculopathy. Location: L sided rib/thoracic Duration: constant Aggravating or associated factors: leaning, rotation and lifting Relieving factors: none Pain [...] M54.14 Orders Orders: Plan Detail Additional Comments Reviewed at home door stretches Goals Decrease pain and spasm Barriers Previous heart surgery Follow Up 2 x week Coding Level of Care Code No Charge Diagnoses Segmental and somatic dysfunction of thoracic region M99.02 Thoracic neuritis M54.14 Additional Codes Procedures - Manipulation: 1-2 regions (35920) 05/28/18 1413 <Electronically signed by Gillian Maciel D.C.> Date Gillian Maciel D.C. Cosigner Signature: Date (if applicable) CC: HEMOGLOBIN A1C Collected: 05/27/2018 Status: F Source: ARABI 1:01 PM [facility] REPOSITORY TYPE CODE TESTS RESULT OUT OF RANGE REFERENCE UNITS LAB L501.9985 4.2-6.3 % High HGB A1C 9.3 Performed By: #### L501.9985 #### [facility] [address] [place], [address] INITAL EVALUATION (1) Observed: 05/20/2018 Status: F Source: JESUS - PT 9:20 AM [facility] REPOSITORY [facility] [address] [place], [place] [address] Fax REHABILITATION SERVICES INITIAL EVALUATION MR#: [id number] Acct: [id number] Name: LISA REIS Rep #: [id number] : 1985 32 From: Salvador Alexander PT, ATC Referring Dr.: Ilda Lozoya DO Status: REG RCR Insurance: [facility] [employer] SELF PAY INSURANCE Patient's Visit Information LISA REIS is a 32 year old F referred to Physical Therapy by Ilda Lozoya with a diagnosis of L pec strain. Date of Evaluation: 05/20/18 Physical Therapist: Salvador Aleaxnder PT, - Visit Plan Frequency: 1x/Week Duration: 1 Week Plan: Refer pt to Dr. Maciel, Chiropractor, for evaluation. Discharge at this time - Subjective Subjective: Pt reports she has had anterior chest wall pain intermittently since december. 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 Pt reports the pain would come and go, but for the past 2 weeks her pain is 90% worse than ever before. Pt reports moving her arm in different directions can provoke bad pain. Pt reports open heart surgery 2012 [...] rest, 5/10 at worst - Pain L anterior chest wall Pain Intensity (Out of 10): [...] - Rehabilitation Potential Physical Therapy Diagnosis: Pt has L anterior chest wall pain most likely due to having a rib out of place Rehabilitation Potential: Good - Anticipated Interventions Patient/Client Instruction: Educate patient on: Condition, Plan of Care For the Purpose of:: To improve self management Thank you for the opportunity to evaluate your patient. For Medicare and Medicare HMO plans, please review the plan of care and approve it. It will need to be FAXED BACK to us at [phone] for Medicare purposes. Please let me know if there are questions or concerns regarding this plan of care. Physician Signature: Date: <Electronically signed by Salvador Alexander PT, ATC> 05/20/18 0920 CC: Ilda Lozoya DO [facility] Signed For Medicare only, by signing this I certify the plan of care. Physicians Signature Date CBC, EMPLOYEE Collected: 05/20/2018 Status: F Source: JESUS 7:41 AM [facility] REPOSITORY TYPE CODE TESTS RESULT OUT OF RANGE REFERENCE UNITS LAB L100.1000 4.4-11.0 K/mm3 Normal WBC 8.0 LAB L100.1200 4.2-5.4 M/mm3 Normal RBC 4.20 LAB L100.1300 12.0-15.0 g/dl Normal HGB 13.1 LAB L100.1400 37-47 % Normal HCT 38.4 LAB L100.1500 81-99 fL Normal MCV 91.4 LAB L100.1600 27.0-32.0 pg Normal MCH 31.2 LAB L100.1700 32-36 g/gl Normal MCHC 34.1 LAB L100.1810 11.6-14.6 % Normal RDW CV 12.3 LAB L100.1820 35.1-43.9 fl Normal RDW SD 40.2 LAB L100.1900 150-450 K/mm3 Normal PLT 232 LAB L100.2000 6.2-12.0 fl Normal MPV 10.9 LAB L100.2110 47-70 % Normal NEUT% 60.0 LAB L100.2210 19-41 % Normal LY% 26.5 LAB L100.2310 0-10 % Normal MONO% 6.6 LAB L100.2410 0-5 % High EO% 5.5 LAB L100.2510 0-1 % Normal BASO% 0.5 LAB L100.2620 2.0-7.7 X10 3/uL Normal Absolute Neut 4.8 LAB L100.2720 0.83-4.51 X10 3/ul Normal Absolute Lymph 2.12 Performed By: #### L100.0200 #### [facility] [address] [place], [address] EMPLOYEE PROFILE Collected: 05/20/2018 Status: F Source: ARABI 7:41 AM [facility] REPOSITORY TYPE CODE TESTS RESULT OUT OF RANGE REFERENCE UNITS LAB L501.0100 74-106 mg/dL High GLU 263 Result Comment: Glucose result greater than or equal to 200 mg/dL suggests DIABETES MELLITUS per A.D.A. criteria. Please note revised GLUCOSE reference range effective 2017. LAB L501.1000 7-18 mg/dL Normal BUN 15 LAB L501.1100 0.55-1.02 mg/dL Normal CREAT,SERUM 0.80 Result Comment: The validity of the calculated GFR AND GFRAA in patients over 70 years has not been determined. Clinical correlation is essential. LAB L501.1110 >60 mL/min Normal EST GFR 88 Result Comment: Non- GFR Calc LAB L501.1115 >60 mL/min Normal EST GFR - AA 106 Result Comment: GFR Calc LAB L501.1300 10-20 RATIO Normal BUN/CRE 18.8 LAB L501.1400 2.6-6.0 mg/dL High URIC 6.1 Result Comment: The drugs N-Acetylcysteine and Metamizole may falsely depress this assay. LAB L501.1500 6.4-8.2 g/dL Normal T PROT 8.0 LAB L501.1800 3.2-5.0 g/dL Normal ALB 3.6 LAB L501.1950 2.2-4.2 g/dL High GLOB 4.4 LAB L501.2000 0.9-2.4 RATIO Low A/G 0.8 LAB L501.2200 8.5-10.1 mg/dL Normal CA 9.0 LAB L501.2300 2.5-4.9 mg/dL Normal PHOS 3.0 LAB L501.4100 15-37 U/L High AST 91 LAB L501.4305 45-117 U/L Normal ALK P 54 LAB L501.4405 13-56 U/L High ALT 87 LAB L501.4600 0.20-1.00 mg/dL Normal T BILI 0.40 LAB L501.4700 0.00-0.30 mg/dL Normal D BILI 0.12 LAB L501.4900 200 mg/dL Normal CHOL 167 Result Comment: <200 mg/dL Desirable 200-240 mg/dL Borderline >240 mg/dL High Risk LAB L501.5000 mg/dL High TRIG 343 Result Comment: The drugs N-Acetylcysteine and Metamizole may falsely depress this assay. Serum Triglycerides Reference Interval Normal <150 mg/dL Borderline high 150 - 199 mg/dL High 200 - 499 mg/dL Very High > or = 500 mg/dL LAB L501.5300 136-145 mmol/L Normal NA 136 LAB L501.5600 3.5-5.1 mmol/L Normal K 4.1 LAB L501.5900 98-107 mmol/L Normal CL 98 LAB L501.6100 21.0-32.0 mmol/L Normal CO2 27.0 LAB L501.6200 5-15 Normal GAP 11 LAB L501.6400 mg/dL Low HDL 36 Result Comment: The drugs N-Acetylcysteine and Metamizole may falsely depress this assay. Reference Range HDL <40 mg/dL Low HDL Cholesterol HDL >or= 60 mg/dL High HDL Cholesterol LAB L501.6475 Normal CHOL:HDL 4.60 LAB L501.6500 0-130 mg/dL Normal LDL 62 LAB L501.6600 5-40 mg/dL High VLDL 69 LAB L504.2610 84-246 U/L Normal LDH 226 Performed By: #### L500.2900 #### [facility] [address] [facility] [place], [address] URINALYSIS, EMPLOYEE Collected: 05/20/2018 Status: F Source: ARABI 7:41 AM [facility] REPOSITORY TYPE CODE TESTS RESULT OUT OF RANGE REFERENCE UNITS LAB L400.3000 Yellow COLOR Normal Yellow LAB L400.3050 Clear Normal CLARITY Clear LAB L400.3200 Normal mg/dl High 50 GLUCOSE, UR LAB L400.3300 Negative mg/dL Normal BILIRUBIN URINE Negative LAB L400.3400 Negative mg/dl High 5 KETONE UR LAB L400.3465 1.002-1.030 Normal SP.GR. DIPSTX 1.020 LAB L400.3550 5.0 - 8.0 pH UR Normal 5.0 LAB L400.3600 Negative mg/dl High PROT 30 DIPSTX LAB L400.3700 Normal mg/dl Normal UROBILI Normal LAB L400.3750 Negative Normal NITRITE UR Negative LAB L400.3780 Negative /ul High 25 OCCULT BLOOD-UR LAB L400.3800 Negative /ul LEUK Normal ESTERASE Negative Performed By: #### L400.0100 #### [facility] [address] [facility] [place], [address] NICOTINE URINE DRUG Collected: 05/20/2018 Status: F Source: ARABI SCREEN 7:41 AM [facility] REPOSITORY TYPE CODE TESTS RESULT OUT OF RANGE REFERENCE UNITS LAB L505.6250 TO BE Normal CONFIRMED Result Comment: CONFIRMATORY TESTING FOR ALL POSITIVE URINE DRUG SCREEN RESULTS WILL ONLY BE SENT OUT UPON PHYSICIAN ORDER. The results of Urine Drug Screen methods provide only preliminary analytical test results. A more specific alternate chemical method must be used in order to obtain a confirmed analytical result. Gas chromatography/mass spectrometery (GC/MS) is the preferred confirmatory method. Clinical consideration and professional judgement should be applied to any drug of abuse test result, particularly when preliminary positive results are used. LAB L505.6270 <200 ng/mL Normal COT DRG Negative SCREEN Result Comment: Cotinine is the first-stage metabolite of Nicotine. Performed By: #### L505.6240 #### [facility] [address] [place], [address] 12 LEAD ELECTROCARDIOGRAM Observed: 05/12/2018 Status: F Source: ARABI 2:41 PM [facility] REPOSITORY [facility] Cardiovascular Services [address] [place] [address] 12 Lead EKG 05/09/18 2133 MR#: [id number] Acct: [id number] Name: LISA REIS Rep #: [id number] : 1985 32 From: Barry Enciso MD Attending Dr: Status: DEP ER Ordering Dr: Suresh Allen DO Date: 05/09/18 Location: ED Sex: F C Admitted: Test Reason : CP Blood Pressure : / mmHG Vent. Rate : 082 BPM Atrial Rate : 082 BPM P-R Int : 140 ms QRS Dur : 104 ms QT Int : 386 ms P-R-T Axes : 044 014 095 degrees QTc Int : 450 ms Normal sinus rhythm Poor R wave progression Abnormal ECG Confirmed by BARRY ENCISO MD ([id number]), acquisition editor HECTOR JAEGER ([id number]) on 05/12/2018 2:41:20 PM Referred By: MYLES Confirmed By:BARRY ENCISO MD 05/12/18 1441 Date Barry Enciso MD CC: Ilda Lozoya DO; Suresh Allen Signed PROGRESS NOTE Observed: 05/12/2018 Status: COMPLETED Source: [place] 2:30 PM [facility] REPOSITORY Lisa Reis is a here for follow-up of Chief Complaint Patient presents with Follow Up BIAOV History of Presenting Problem Lisa returns for semi urgent post emergency room visit follow up of her aortic valve disease 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 She has been complaining of chest pain for a week. Pain is non exertional and is exacerbated by certain movements. Her ECG and cardiac enzymes were normal in the ED. She maintains an active lifestyle. 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 She has 3 children ages 4-8. She keeps up OK. She gets short of breath at random times. She is not experiencing dizziness, or sustained palpitations. She has not been edematous. Chest Pain This is a new problem. Onset was 5 to 7 days ago. The onset quality is gradual. The problem is unchanged. The pain is moderate. The pain is related to nothing/rest. The pain is exacerbated by movement. Pertinent negatives include no dyspnea, nausea, near-syncope or palpitations. Cardiac Review of System Cardiovascular: Patient's ECG reviewed. Patient has chest pain and a murmur. Patient has no cyanosis, dizziness, edema, palpitations or syncope. Patient has no dyspnea. She has no diaphoresis. She has no hypertension. Patient's exercise tolerance is good. Patient has a history of congenital heart defect. Review of Systems Constitutional: Negative for chills, decreased appetite, diaphoresis and fever. HENT: Negative. Eyes: Negative. Respiratory: Positive for shortness of breath. Negative for cough. She has felt SOB occasionally. It does not limit her activities. She is able to complete all of her work as a nurse and daily activities Cardiovascular: Positive for chest pain. Negative for palpitations, syncope and cyanosis. Gastrointestinal: Negative for abdominal pain, constipation, diarrhea, nausea and vomiting. Endocrine: Benign thyroid nodule - biopsy done in Oct Musculoskeletal: Neck and jaw pain at times Skin: Negative. Neurological: Negative for dizziness. Psychiatric/Behavioral: Negative for depression. The patient is not nervous/anxious. Interval and Past Medical History Past Medical History: Diagnosis Date Bicuspid aortic valve Diabetes mellitus, type II GERD (gastroesophageal reflux disease) Headache Hypertension Pneumonia Thyroid disease Type 2 diabetes mellitus without complications Uncomplicated asthma UTI (urinary tract infection) Past Surgical History: Procedure Laterality Date AORTIC VALVE REPLACEMENT 11/18/2006 [facility] [place] [facility], Dr. Vidal Gonsales, #28 Hemashield woven Dacron graft to aortic arch and ascending aorta, repalcement of aortic valve with #23 Criss-[place]ard bovine pericardial heterograft AORTIC VALVE REPLACEMENT 05/26/2013 [facility] [place] [facility], Dr. David Salcido, Aortic Valve replacement with #23 mm Trifecta valve AORTIC VALVULOPLASTY 04/17/1993 [facility], Dr. Robert Chou CHOLECYSTECTOMY TONSILLECTOMY WISDOM TOOTH EXTRACTION Social History Social History Marital status: Spouse name: N/A Number of children: N/A Years of education: N/A Social History Main Topics Smoking status: Never Smoker Smokeless tobacco: Never Used Alcohol use No Drug use: No Sexual activity: Not Asked Other Topics Concern None Social History Narrative None Medications: Outpatient Encounter Prescriptions as of 05/12/2018 Medication Sig Dispense Refill Metoprolol Succinate (TOPROL XL) 100 MG TB24 Take 100 mg by mouth daily 30 Each 11 chlorthalidone (HYGROTON) 25 MG tablet Take 1 Tab (25 mg) by mouth daily 30 Tab 11 metFORMIN (GLUCOPHAGE) 1000 MG Take 500 mg by mouth 2 times daily amoxicillin (AMOXIL) 500 MG capsule Take 4 Caps (2,000 mg) by mouth once as needed for Other (one hour before dental work / dental cleaning) for up to 1 dose 4 Cap 1 ranitidine (ZANTAC) 150 MG tablet Take 150 mg by mouth daily aspirin 81 MG TABS Take 81 mg by mouth. levothyroxine (SYNTHROID) 100 MCG tablet Take 100 mcg by mouth daily. No facility-administered encounter medications on file as of 05/12/2018. Allergies: Allergies Allergen Reactions Sulfa Antibiotics Hives Physical Exam: Vitals: 05/12/18 1418 BP: 140/76 Pulse: 80 Resp: 20 Weight: 100.4 kg Vitals reviewed. Constitutional: She appears well-developed and well-nourished. No distress. HENT: Head: Normocephalic and atraumatic. Eyes: Conjunctivae are normal. Neck: No JVD present. Cardiovascular: Normal rate, regular rhythm, S1 normal and S2 normal. No extrasystoles are present. PMI is not displaced. Exam reveals no gallop, no friction rub, no aortic ejection click and no pulmonic click. Murmur heard. Systolic murmur is present with a grade of 2/6 No diastolic murmur is present Pulses: Radial pulses are 2+ on the right side. Posterior tibial pulses are 2+ on the right side. Pulmonary/Chest: Effort normal and breath sounds normal. No respiratory distress. She has no wheezes. She has no rales. She exhibits tenderness. Abdominal: Soft. She exhibits no distension and no mass. There is no tenderness. There is no rebound and no guarding. Musculoskeletal: She exhibits no edema or tenderness. Neurological: She is alert. Skin: Skin is warm. No rash noted. She is not diaphoretic. Psychiatric: She has a normal mood and affect. Her behavior is normal. Thought content normal. 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 Mild to moderate aortic valve stenosis. No dissection. Normal LV systolic performance. Impression: Lisa is a 31 year old woman with a history of bicuspid aortic valve with ascending aorta dilation. She had replacement of the ascending aorta and aortic valve with a homograft tissue valve. 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 She had a valve replacement with another tissue valve in May 2013. She now has a 23 mm Trifecta valve. Her valve is functioning appropriately. There is mild to moderate aortic valve stenosis. Her chest pain appears to be musculoskeletal in origin. She may need physical therapy for better intermediate frame tender management. Plan/Recommendations: No restrictions or special precautions are required. Activity as tolerated. Avoid heavy lifting. Antibiotics are required prior to dental appointments. Continue same medicines. Follow up in 1 year Patient and family are aware of and comply with SBE prophylaxis. Zach Garcia MD 05/14/2018 5:11 AM EMERGENCY DEPARTMENT Observed: 05/09/2018 Status: F Source: ARABI SUMMARY 10:39 PM [facility] REPOSITORY [facility] Medical Records Department [address] [place] [address] Emergency Department Summary 05/09/18 2145 MR#: [id number] Acct: [id number] Name: LISA REIS Rep #: [id number] : 1985 32 From: Suresh Arevalo PCP: Ilda Lozoya DO Status: REG ER - ER Visit Summary Date of Service: 05/09/18 Chief Complaint: Chest pain History of Present Illness: The patient is a 32 F waxing waning chest pain since yesterday evening. Pain left side moved to the right. Noted pain bilaterally. Dyspnea. No nausea or vomiting. History of diabetes, hypertension, hypercholesterolemia. No tobacco history. History of bicuspid valve, along with thoracic aneurysm, this was repaired in 2006. Additional valve repair in 2012. She just takes aspirin. No history of stress test or heart cath in the past. No similar symptoms. No recent travel, surgeries, or immobilizations. No history of PE or DVT. States pain currently resolved. Take baby aspirin today. Physical Examination: General: Alert and oriented 3, no acute distress HEENT: Normocephalic, atraumatic. Moist mucosa membranes Neck: supple, nontender. Cardiovascular: Regular rate and rhythm, no murmurs. Midline chest scar Respiratory: Normal breath sounds, symmetric, no distress Abdomen: Soft, nontender, nondistended Extremities: Nontender, no edema, pulses intact 4 Neuro: no focal neurological deficits. Test Results: EKG: Sinus rate of 82, nonspecific ST depression in 1 and aVL, T-wave inversion in aVL. Troponin negative. Baseline labs negative. Chest x-ray negative. Emergency Department Course and Treatment: Patient treated with aspirin. EKG noted nonspecific ST depression, extreme lateral leads, less than 0.5 mm. Symptom- free on my evaluation. Workup negative troponin. Reevaluation complains of pain when she moves her arm right lateral sternal region. She states she was lifting her child 2 days prior before symptoms. Pain with palpation. This is reproducible. Discussed with patient does have risk factors, heart scores a 2. FAREED is a 1. However has a negative troponin with over 24 hours of symptoms. Discussed with patient less likely cardiac in nature. With exam concerns for costochondritis. Patient no contraindications to NSAIDs. Discussed continuing this and monitoring symptoms. Discussed with patient signs and symptoms to return. Patient understands and agrees with plan. Treatment Plan: [] Disposition: Discharge Impression: Acute costochondritis This note was generated with [employer] dictation software. It may contain incorrect words, spelling, and punctuation that were not noted in review of the chart prior to signing ED Disposition - Plan for ED Patient: Disposition: Home or Assisted Living Chief Complaint: Chest Pain Diagnosis: Costochondritis Instructions: ED Chest Pain Costochondritis Referrals: Ilda Lozoya DO [Primary Care Provider] - 3-5 Days What to do if you have Problems For any increased pain, shortness of breath, bleeding, nausea or vomiting, chest pain, or any unexpected problems, contact your Primary Care Provider. Call [facility] ([phone]) or report to the closest Emergency Room. Call 911 if necessary. 05/09/18 <Electronically signed by Suresh Arevalo> Date Suresh Arevalo Cosigner Signature (If Indicated): Date CC: Ilda Lozoya DO CBC W/DIFF, AUTOMATED Collected: 05/09/2018 Status: F Source: JESUS 9:43 PM [facility] REPOSITORY TYPE CODE TESTS RESULT OUT OF RANGE REFERENCE UNITS LAB L100.1000 4.4-11.0 K/mm3 Normal WBC 8.5 LAB L100.1200 4.2-5.4 M/mm3 Normal RBC 4.31 LAB L100.1300 12.0-15.0 g/dl Normal HGB 13.7 LAB L100.1400 37-47 % Normal HCT 39.5 LAB L100.1500 81-99 fL Normal MCV 91.6 LAB L100.1600 27.0-32.0 pg Normal MCH 31.8 LAB L100.1700 32-36 g/gl Normal MCHC 34.7 LAB L100.1810 11.6-14.6 % Normal RDW CV 12.6 LAB L100.1820 35.1-43.9 fl Normal RDW SD 41.9 LAB L100.1900 150-450 K/mm3 Normal PLT 233 LAB L100.2000 6.2-12.0 fl Normal MPV 11.5 LAB L100.2100 47-70 % Normal NEUT% 61.0 LAB L100.2200 19-41 % Normal LY% 28.5 LAB L100.2300 0-10 % Normal MONO% 6.9 LAB L100.2400 0-5 % Normal EO% 3.0 LAB L100.2500 0-1 % Normal BASO% 0.2 LAB L100.2550 0.0-0.9 % Normal IM GRAN % 0.400 Result Comment: IG% - Immature Granulocytes (promyelocytes, myelocytes and metamyelocytes) > 1% indicates that a LEFT SHIFT is Present. LAB L100.2620 2.0-7.7 X10 3/uL Normal Absolute Neut 5.2 LAB L100.2720 0.83-4.51 X10 3/ul Normal Absolute Lymph 2.41 Performed By: #### L100.0100 #### [facility] [address] [place], [place], [address] BASIC METABOLIC Collected: 05/09/2018 Status: F Source: ARABI PROFILE ([facility]) 9:43 PM [facility] REPOSITORY TYPE CODE TESTS RESULT OUT OF RANGE REFERENCE UNITS LAB L501.0100 74-106 mg/dL High GLU 441 Result Comment: Glucose result greater than or equal to 200 mg/dL suggests DIABETES MELLITUS per A.D.A. criteria. Please note revised GLUCOSE reference range effective 2017. LAB L501.1000 7-18 mg/dL Normal BUN 15 LAB L501.1100 0.55-1.02 mg/dL High CREAT,SERUM 1.05 Result Comment: The validity of the calculated GFR AND GFRAA in patients over 70 years has not been determined. Clinical correlation is essential. LAB L501.1110 >60 mL/min Normal EST GFR 64 Result Comment: Non- GFR Calc LAB L501.1115 >60 mL/min Normal EST GFR - AA 77 Result Comment: GFR Calc LAB L501.1255 ml/min Normal Estimated CRCL 74.11 LAB L501.1300 10-20 RATIO Normal BUN/CRE 14.3 LAB L501.2200 8.5-10 mg/dL Normal .1 CA 9.4 LAB L501.5300 136-14 mmol/L Normal 5 NA 136 LAB L501.5600 3.5-5. mmol/L Normal 1 K 4.2 LAB L501.5900 98-107 mmol/L Low CL 96 LAB L501.6100 21.0-3 mmol/L Normal 2.0 CO2 27.0 LAB L501.6200 5-15 Normal GAP 13 Performed By: #### L500.2500, L501.4010 #### [facility] [address] [facility] [address] [place], [place], [address] TROPONIN-I Collected: 05/09/2018 Status: F Source: ARABI 9:43 PM [facility] REPOSITORY TYPE CODE TESTS RESULT OUT OF RANGE REFERENCE UNITS LAB L501.4010 <0.045 ng/mL Normal < 0.015 TROPONIN-I Result Comment: TROPONIN-I EXPECTED VALUES <0.045 Negative 0.045 - 0.590 Consistent with Cardiac Damage > OR = 0.600 Critical Value Not every elevated troponin is indicative of [place]. These values should be used with clinical judgement in examining the patient's clinical picture for diagnosis. To establish a diagnosis of [place] versus myocardial injury, there must be a demonstrated rise and/or fall in the troponin values, in addition to ischemic symptoms, EKG changes, new regional wall motion abnormality, and/or angiographical evidence. PLEASE NOTE: REFERENCE RANGES EDITED 18 Performed By: #### L500.2500, L501.4010 #### [facility] [address] [place], [place], [address] CHEST 1 VIEW Observed: 05/09/2018 Status: F Source: ARABI (PORTABLE) 9:42 PM [facility] REPOSITORY [facility] Imaging Services [address] [facility] [place] [address] Chest 1 View (Portable) MR#: [id number] Acct: [id number] Name: LISA REIS Rep #: [id number] : 1985 F 32 From: Mahesh Ma MD PCP: Ilda Lozoya DO Status: REG ER Study: Chest 1 View (Portable) Date of Exam: 05/09/18 Exam# [id number] Ordering Dr: Suresh Allen DO STUDY: X-RAY CHEST REASON FOR EXAM: Female, 32 years old. Chest pain for 2 days. History of aortic valve replacement and abdominal aortic aneurysm. Hypertension and asthma. TECHNIQUE: Single AP portable view of the chest. COMPARISON: 05/21/2016. FINDINGS: The lungs are clear and expanded. There is no demonstrated pleural abnormality. Normal size heart. There are sternotomy wires. Normal mediastinum and alvin. Normal visualized pulmonary arteries. Normal visualized aortic arch and descending thoracic aorta. Normal visualized thoracic spine. Normal visualized ribs, clavicles, and shoulders. There is no demonstrated abnormality of the visualized soft tissue structures of the upper abdomen. RAD/Chest 1 View (Portable) IMPRESSION: No evidence for acute cardiopulmonary pathology. Electronically Signed: Mahesh Ma MD at 22:15 EDT , Service support , CC: Ilda Lozoya DO; Suresh Allen Instrument And Electrical Technician: Signed PROGRESS Observed: 10/29/2017 Status: COMPLETED Source: FORSAN 9:04 AM [facility] REPOSITORY HNO ID: [id number] Author: Kody Kim Service: (none) Author Type: Physician Type: Progress Notes Filed: 10/29/2017 9:51 AM Note Text: Lisa Reis is a 31 year old who presents for her annual gynecologic exam without complaints Menses: cycles every 28-30 days and 8-10 days of flow. Contraception: tubal ligation HPV vaccine: N/A Last Pap: 2016 normal HPV: negative History of abnormal pap: No Last mammogram: never Obstetric History T0 L3 SAB1 TAB0 Ectopic0 Multiple0 Live Births1 PAST MEDICAL HISTORY Diagnosis Date - Aortic valve disorders Aortic valve disorders-stenosis - Diabetes mellitus (HCC) - Diffuse cystic mastopathy - Hypertension possibly d/t nuvaring - Hypothyroid - Irregular menstrual cycle Irregular periods - Migraine without aura - Peripheral vascular disease (HCC) - PMH - PAST MEDICAL HISTORY OF glucose intolerance - Unspecified asthma(493.90) as child PAST SURGICAL HISTORY Procedure Laterality Date - DELIVERY ONLY 12/14/08 11/14/10 , low transverse - DELIVERY ONLY 04/27 - HEART VALVE REPAIR - HEART VALVE REPLACEMENT - LAP CHOLECYSTECT/CHOLANGIOGRAPHY 02/24/07 - LIGATE FALLOPIAN TUBE 04/27 Tubal ligation - PAST SURGICAL HISTORY OF 1991 heart cath for suspected ASD - PAST SURGICAL HISTORY OF wisdom teeth - PAST SURGICAL HISTORY OF 11/18/06 aortic valve re: assending aortic anneurysm stent placement - PAST SURGICAL HISTORY OF needle breast BX - PERCUT AORTIC VALVULOPLASTY 1992 - PERIPHERAL VASCULAR INTERVENTION FAMILY HISTORY Problem Relation Age of Onset - Diabetes Father - Diabetes Paternal Grandfather - Heart Maternal Grandmother a fib - Hypertension Father - Prostate Cancer Maternal Grandfather - Arthritis Maternal Grandfather - Emphysema Maternal Grandmother - Lipids Father - Osteoporosis Maternal Grandmother - Thyroid Mother Assending aortic anneurysm - Hypertension Mother Aortic valve replacement - Breast Cancer Maternal Aunt at age 47 SOCIAL HISTORY Social History Substance Use Topics - Smoking status: Never Smoker - Smokeless tobacco: Never Used - Alcohol use No REVIEW OF SYSTEMS Abdomen: No abdominal pain, nausea, vomiting, diarrhea, or constipation. No bloating, early satiety, indigestion, or increased flatulence. Bladder: No dysuria, gross hematuria, urinary frequency, urinary urgency, or incontinence. Breast: No breast lumps, nipple d/c, overlying skin changes, redness or skin retraction. Allergies and current medication updated:Yes EXAM: There were no vitals taken for this visit. GENERAL: pleasant, female in no apparent distress BREAST: soft, non-tender, symmetric, no dominant mass, normal nipple-areolar complex, no lymphadenopathy and no nipple discharge CHEST: Normal inspiratory effort ABDOMEN: soft, non-tender and no masses PELVIC: external genitalia normal, normal Bartholin's glands, urethra, Weidman's glands, no vulvar lesions, no cervical lesions, good vaginal support, physiologic discharge present, normal appearing perineal body and perianal region BIMANUAL: uterus normal size, shape and consistency, no adnexal masses and non-tender RECTOVAGINAL: deferred. NEURO: alert and oriented x3,exam grossly non-focal EXTREMITIES: normal ASSESSMENT/PLAN: 1) Health maintenance: Pap/HPV up to date. Nutrition, exercise and routine health maintenance exams reviewed. 2) Contraception: tubal ligation. 3) STD screening: Declined STD check. 4) Follow up one year or sooner as needed Kody Kim MD ALLERGIES ALLERGIES DATE TYPE / CODE NAME / CODE REACTION SEVERITY SOURCE 09/23/2018 Drug Sulfa (Sulfonamide Rash Unknown Jesus Allergy/416 Antibiotics)/F0010 Formerly [facility] 107014([facility] 19305(RXNORM) [facility] ED CT) Repository 09/23/2018 Drug adhesive Unknown Unknown [facility] Allergy/416 tape/[id number](RX Formerly [facility] 943329(OM NORM) [facility] ED CT) Repository 05/02/2014 Drug SULFA ANTIBIOTICS [facility]/51920 Hospital 1003(SNOMED Repository CT) 11/13/2006 Chemical/42 ADHESIVE TAPE [facility] 0949085(SNO (ROSINS) [facility] MED CT) Repository 10/25/2005 Drug SULFA (SULFONAMIDE HIVES [facility] Class/44468 ANTIBIOTICS) [facility] 1003(SNOMED Repository CT) ENCOUNTERS ENCOUNTERS ADMIT/DISCHARGE ACCOUNT ADMITTING ENCOUNTER LOCATION SOURCE NUMBER CLASS 10/08/2018/10/09/19 [id number] Ambulatory [address] Repository 10/02/2018 [id number] Ambulatory [place] [facility] Hospital ing:US Repository 09/23/2018/09/23/19 [id number] Ambulatory BMSBuilding:B Jesus 19 MS.[facility] Repository 07/09/2018/07/09/20 [id number] Ambulatory BMSBuilding:B [place] 18 MS.[facility] Repository 07/01/2018/07/01/20 [id number] Ambulatory BMSBuilding:B [facility] 18 MS.[facility] Repository 06/18/2018/06/18/20 [id number] Ambulatory BMSBuilding:B [place] 18 MS.[facility] Repository 06/10/2018/06/10/20 [id number] Ambulatory BMSBuilding:B [place] 18 MS.[facility] Repository 06/04/2018/06/04/20 [id number] Ambulatory BMSBuilding:B [place] 18 MS.[facility] Repository 06/01/2018/06/01/20 [id number] Ambulatory BMSBuilding:B [place] 18 MS.[facility] Repository 06/01/2018 [id number] Ambulatory BMSBuilding:B [place] MS.[facility] Repository 05/28/2018/05/28/20 [id number] Ambulatory BMSBuilding:B [place] 18 MS.[facility] Repository 05/27/2018 [id number] Ambulatory [facility] ing:LAB Repository 05/26/2018/05/26/20 [id number] Ambulatory BMSBuilding:B [place] 18 MS.[facility] Repository 05/20/2018/05/20/20 [id number] Ambulatory [address] ing:PT Repository 05/20/2018 [id number] Ambulatory [facility] ing:EMPH Repository 05/12/2018/05/12/20 [id number] Ambulatory Building:[address] Repository 05/09/2018/05/09/20 [id number] Emergency [address] ing:ED Repository 10/29/2017/10/30/19 [id number] Ambulatory [address] Repository PAYERS PAYERS ENCOUNTER GUARANTOR PAYER SUBSCRIBER SOURCE 10/02/2018 LISA Watkins Primary Insurance:[facility] LISA [id number] [facility] 3880-15-13UBJOld [place], [place] Number: Repository [address]Whh: [phone] [id number] [phone] () Date:6206-96-28UL [address] [address]GTBMPFCMM, [place] [address]IO: CHECK WEBSITE 10/02/2018 Secondary NOT GIVENUNK [place] Insurance:SELF PAY [facility] Number: Effective Repository Date:2018-09-28 09/23/2018 LISA Watkins Primary Insurance:[facility] LISA Watkins Jesus [id number] [facility] RIGGENBACHDOB: [facility] [id number] [facility] [place] Number: Repository [address]Pcj: 330 [id number] [phone] (HP) Date:7453-34-18JO [address] [address]GSOLZYTZV, [place] [address]VC: CHECK WEBSITE 09/23/2018 Secondary NOT GIVENUNK [place] Insurance:SELF PAY [facility] Number: Effective Repository Date:2018-09-14 07/09/2018 MATA D Primary Insurance:[facility] LISA Watkins [place] [id number] [facility] RIGGENBACHDOB: [facility] [id number] Valley Hospital [place] Number: Repository [address]Oqg: ([phone] [id number] [phone] () Date:7451-58-25GU [address] [address]NAGWQTJFW, [place] [address]BU: CHECK WEBSITE 07/09/2018 Secondary NOT GIVENUNK Jesus Insurance:SELF PAY [facility] Number: Effective Repository Date:2018-07-09 07/01/2018 MATA D Primary Insurance:[facility] Lisa [place] [id number] [facility] RiggenbachDOB: [facility] 6147-72-99SXCOld [place], [place] Number: Repository [address]Cqh: ([phone]) [id number] [phone] () Date:2710-93-83YL [address] [address]UYZFNBIQU, [place] [address]PN: CHECK WEBSITE 07/01/2018 Secondary NOT GIVENUNK Jesus Insurance:SELF PAY [facility] Number: Effective Repository Date:2018-07-01 06/18/2018 MATA D Primary Insurance:[facility] Lisa Thorneoster [id number] [facility] RiggenbachDOB: [facility] 7845-44-60HLAAspen [facility] [place] Number: Repository [address]Rrx: [phone] [id number] [phone] (HP) Date:5869-62-31BC [address] [address]PUYNOFHDS, [place] [address]XH: CHECK WEBSITE 06/18/2018 Secondary NOT GIVENUNK [place] Insurance:SELF PAY [facility] Number: Effective Repository Date:2018-06-18 06/10/2018 MATA D Primary Insurance:[facility] Lisa Watkins [place] [id number] [facility] RiggenbachDOB: [facility] 0930-44-41FTBOld [place] Number: Repository [address]Zpt: 419 [id number] [phone] () Date:9166-67-87YT [address] [address]OKCQIQQGC, [place] [address]QZ: CHECK WEBSITE 06/10/2018 Secondary NOT GIVENUNK [place] Insurance:SELF PAY [facility] Number: Effective Repository Date:2018-06-10 06/04/2018 MATA D Primary Insurance:[facility] Lisa Watkins [place] [id number] [facility] RiggenbachDOB: [facility] 0991-84-34XBMOld [place] Number: Repository [address]Qoc: 419 [id number] [phone] () Date:0567-68-17FV [address] [address]QAGBDFOBD, [place] [address]NW: CHECK WEBSITE 06/04/2018 Secondary NOT GIVENUNK [place] Insurance:SELF PAY [facility] Number: Effective Repository Date:2018-06-04 06/01/2018 MATA D Primary Insurance:[facility] Lisa Thorneoster [id number] [facility] RiggenbachDOB: [facility] 2921-92-17DRDOld [place], [place] Number: Repository [address]Tea: 419 [id number] [phone] () Date:4965-08-59HV [address] [address]IBGXNFQZF, [place] [address]RF: CHECK WEBSITE 06/01/2018 Secondary NOT GIVENUNK [place] Insurance:SELF PAY [facility] Number: Effective Repository Date:2018-06-01 06/01/2018 MATA D Primary Insurance:[facility] Lisa Watkins [place] [id number] [facility] RiggenbachDOB: [facility] 7479-49-74ARRAspen Valley [facility] [place] Number: Repository [address]Tsg: 419 [id number] [phone] (HP) Date:7466-84-05SK [address] [address]EUUQYHCRG, [place] [address]XN: CHECK WEBSITE 06/01/2018 Secondary NOT GIVENUNK Jesus Insurance:SELF PAY [facility] Number: Effective Repository Date:2018-05-28 05/28/2018 MATA D Primary Insurance:[facility] Lisa L Jesus [id number] [facility] RiggenbachDOB: [facility] 2513-29-51AATAspen Valley [facility] [place] Number: Repository [address]Dhs: 419 [id number] [phone] () Date:0845-66-49FC [address] [address]HIFXRUBRD, [place] [address]QZ: CHECK WEBSITE 05/28/2018 Secondary NOT GIVENUNK Jesus Insurance:SELF PAY [facility] Number: Effective Repository Date:2018-05-28 05/27/2018 MATA D Primary Insurance:[facility] Lisa L [place] [id number] [facility] RiggenbachDOB: [facility] 1208-62-88EZEOld [place], [place] Number: Repository [address]Wyb: 419 [id number] [phone] () Date:7358-56-97KV [address] [address]LQEARSIVD, [place] [address]YX: CHECK WEBSITE 05/27/2018 Secondary NOT GIVENUNK [place] Insurance:SELF PAY [facility] Number: Effective Repository Date:2018-05-27 05/26/2018 MATA D Primary Insurance:[facility] Lisa Watkins [place] [id number] [facility] RiggenbachDOB: [facility] 0900-09-98RBBOld [place] Number: Repository [address]Eys: 419 [id number] [phone] () Date:1380-99-74YS [address] [address]WVTRUCAAW, [place] [address]NO: CHECK WEBSITE 05/26/2018 Secondary NOT GIVENUNK [place] Insurance:SELF PAY [facility] Number: Effective Repository Date:2018-05-26 05/20/2018 MATA D Primary Insurance:[facility] Lisa Watkins [place] [id number] [facility] 7526-41-01HGCOld [place] Number: Repository [address]Hfw: 419 [id number] [phone]) Date:8162-23-44BX [address] [address]SVGDCAUSQ, [place] [address]UH: CHECK WEBSITE 05/20/2018 Secondary NOT GIVENUNK [place] Insurance:SELF PAY [facility] Number: Effective Repository Date:2018-05-14 05/20/2018 MATA D Primary NOT GIVENUNK Jesus [id number] Insurance:SELF PAY [place] Number: Effective Repository [address]Adn: 419) Date:2018-05-20 [phone] () 05/12/2018 [facility] KENROY [facility] KENROY [facility] RIGGENBACHDOB: Insurance:MEDICAL RIGGENBACHDOB: [facility] [id number] Repository [facility] Number: [address] [place], [place] [id number] [place], [place] [address]Gja: 330) Date: [phone] () () 05/09/2018 MATA D Primary Insurance:[facility] Lisa Thorneoster [id number] [facility] 4378-96-40WPKOld [place], [place] Number: Repository [address]Ogv: 419 [id number] [phone] () Date:5580-61-59ZJ [address] [address]ZLASCWOGV, [place] [address]MP: CHECK WEBSITE 05/09/2018 Secondary NOT GIVENUNK Jesus Insurance:SELF PAY [facility] Number: Effective Repository Date:2018-05-09
== END ==
PROVIDERS: Family Provider Internal Medicine; PCP Internal Medicine; Referring Provider Internal Medicine; Visit Provider Internal Medicine
DX: E04.1 Nontoxic single thyroid nodule (principal)
CPT/HCPCS: 76536

== ENCOUNTER → 2019-03-15 13:54 | Outpatient (CLI) | payer OTHER, SELFPAY ==
[2018-12-23 13:12] VITALS: BMI 29.7
--- NOTE | 2019-03-15 13:55 | US_ITS ---
STUDY: THYROID ULTRASOUND REASON FOR EXAM: Female, 33 years old. Thyroid disorder. Hypothyroidism. TECHNIQUE: Ultrasound evaluation of the thyroid was performed with real-time and static petit-scale imaging. COMPARISON: 06/25/2017, 10/02/2018 ultrasound thyroid. FINDINGS: RIGHT LOBE: Right thyroid 46 x 14 x 23 mm, generalized heterogeneous echotexture, innumerable low-density micronodules, no dominant nodule, normal vascularity. LEFT LOBE: Left thyroid 43 x 16 x 20 mm, generalized heterogeneous echotexture, innumerable low density micronodules, normal vascularity. Hyperechoic solid nodule with slender hypoechoic halo, measuring 12 x 14 x 11 mm, no significant internal vascularity. Hyperechoic solid nodule 4 x 4 x 4 mm with no significant internal vascularity. ISTHMUS: The isthmus measures heterogeneous echotexture with micronodules. 4 mm in thickness. . US/Thyroid IMPRESSION: Pattern of chronic thyroiditis with innumerable small hypoechoic micronodules throughout the thyroid gland. No dominant nodule on the right. Stable solid hyperechoic circumscribed nodules on the left, Low Suspicion Pattern based on the [place] [employer] guidelines for assessment of thyroid nodules. 5-10% risk. Based on size criteria within this category, size less than 15 mm, continued surveillance imaging remains appropriate. Follow-up thyroid ultrasound in approximately one year. Electronically Signed: Damien Marks MD at 15:49 EDT Tel , Service support ,
== END ==
PROVIDERS: Family Provider Internal Medicine; PCP Internal Medicine; Referring Provider Internal Medicine; Visit Provider Internal Medicine
DX: E03.9 Hypothyroidism, unspecified (principal); E04.1 Nontoxic single thyroid nodule
CPT/HCPCS: 76536

== ENCOUNTER → 2019-04-28 09:22 | Outpatient (CLI) | payer OTHER, SELFPAY ==
[2018-12-23 13:12] VITALS: BMI 29.7
[2019-04-28 11:09] LABS: T4 Free Direct 1.25 ng/dL (0.76-1.46); Thyroid Stim Hormone (TSH) 1.64 uIU/mL (0.358-3.74)
[2019-04-28 12:06] LABS: Microalbumin:Creatinine Ratio 70.2 mg/g CRE (<30 mg/g CRE)
== END ==
PROVIDERS: Family Provider Internal Medicine; PCP Internal Medicine; Referring Provider Internal Medicine; Visit Provider Internal Medicine
DX: E11.65 Type 2 diabetes mellitus with hyperglycemia (principal); E03.9 Hypothyroidism, unspecified
CPT/HCPCS: 36415; 82043; 82570; 84439; 84443

== ENCOUNTER 2020-03-12 06:00 | Inpatient (IN) | payer OTHER, SELFPAY ==
[2020-02-28 15:26] VITALS: BMI 32.1
[2020-03-12] VITALS (20 sets, daily range): BP systolic 129–172; BP diastolic 65–94; PULSE 73–86; RESP 12–27; TEMP 36.7–37.1; O2SAT 94–100; BMI 35.6; BMI 34.8
--- NOTE | 2020-03-12 06:27 | EKG12_ITS ---
Test Reason : SOB Blood Pressure : / mmHG Vent. Rate : 081 BPM Atrial Rate : 081 BPM P-R Int : 160 ms QRS Dur : 108 ms QT Int : 402 ms P-R-T Axes : 025 012 137 degrees QTc Int : 466 ms Normal sinus rhythm Septal infarct , age undetermined ST & T wave abnormality, consider lateral ischemia Abnormal ECG Confirmed by GABRIEL WALKER ([id number]), assistant film editor CARL SOOD ([id number]) on 03/16/2020 11:59:44 AM Referred By: DELIA Confirmed By:GABRIEL WALKER
--- NOTE | 2020-03-12 06:34 | RAD_ITS ---
STUDY: X-RAY CHEST REASON FOR EXAM: Female, 34 years old. INCREASED Sob; woke UP DURING NIGHT WITH WHEEZING. HX OF VALVE REPLACEMENT, AORTIC ANEURYSM AND HTN TECHNIQUE: PA and lateral views of the chest. COMPARISON: 05/09/2018 FINDINGS: There are superimposed monitor leads. Linear changes left perihilar lung are stable consistent with scarring. There is no demonstrated pleural abnormality. Sternal cerclage wires are present from a prior sternotomy and valve replacement. Normal mediastinum and alvin. Normal visualized pulmonary arteries. Normal visualized aortic arch and descending thoracic aorta. Normal visualized thoracic spine. Normal visualized ribs, clavicles, and shoulders. There is no demonstrated abnormality of the visualized soft tissue structures of the upper abdomen. RAD/Chest PA and Lateral IMPRESSION: No acute cardiopulmonary disease. No significant interval change. Other nonacute findings as outlined above. Electronically Signed: Kendra Omer MD at 7:06 EDT , Service support ,
[2020-03-12 06:37] LABS: Absolute Lymphocyte Count 1.55 X10^3/uL (0.83-4.51); Absolute Neutrophil Count 4.4 X10^3/uL (2.0-7.7); Basophil# 0.04 X10^3/uL; Basophil% 0.6 % (0-1); Eosinophil# 0.17 X10^3/uL; Eosinophils% 2.5 % (0-5); Hematocrit 25.3 % (37-47); Hemoglobin 7.4 g/dL (12.0-15.0); Lymphocyte # 1.55 X10^3/ul (4.0); Mean Corp Hgb Conc 29.2 g/dL (32-36); Mean Corpuscular Volume 82.1 fL (81-99); Mean Platelet Vol. 11.4 fl (6.2-12.0); Monocyte# 0.45 X10^3/uL; Monocyte% 6.7 % (0-10); NRBC Flagged by Analyzer 0 % (0-5); Neutrophil # 4.43 X10^3/uL (2.7-7.7); Neutrophil % 65.9 % (47-70); Platelet Count 245 K/mm3 (150-450); RBC Distribution Width CV 17.1 % (11.6-14.6); RBC Distribution Width SD 49.1 fl (35.1-43.9); Red Blood Count 3.08 M/mm3 (4.2-5.4); White Blood Count 6.7 K/mm3 (4.4-11.0)
--- NOTE | 2020-03-12 06:48 | ED.VIS.GEN ---
History of Present Illness Chief Complaint: Shortness of Breath Informant: Patient Onset: Weeks Context: Gradual Onset Timing: Continuous Current Severity: Moderate Maximum Severity: Severe Narrative: The patient is a 34-year-old female with rather complex medical history. Patient has a history of bicuspid aortic valve with severe aortic stenosis. She has had aortic valve replacement with bioprosthetic valve. She does follow with cardiology. She states that she has been having some dyspnea for the past few months. 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 She thought that it may been secondary to seasonal allergies. She states that over the past week, shortness of breath is worsened. She states she feels like she cannot walk any distance without getting dyspneic and having some chest tightness. She denies any fevers. She denies any chills or sweats. She has no history of vascular disease, just structural heart disease. She states that tonight, her shortness of breath was rather significant and she felt like she cannot catch her breath. She denies any history of pulmonary embolus. Prior similar symptoms: No Recent Illness/Hospitalization: No Past Medical History - Allergies and Home Meds Allergies/Adverse Reactions: Allergies adhesive tape Allergy (Unknown, Verified 03/12/20 06:08) Unknown Sulfa (Sulfonamide Antibiotics) Allergy (Verified 03/12/20 06:08) Rash Primary Care Physician: Jonas Sweet MD [Primary Care Provider] - Prior records reviewed: Yes Past Medical History: - - Aortic valve replacement, hypertension, type 2 diabetes Smoking Status: Never smoker Review of Systems General: Denies: Chills, Fever, Sweats Eyes: Denies: Visual changes - bilaterally, Diplopia ENT: Denies: Rhinorrhea, Sore throat Cardiovascular: Denies: Chest pain, Palpitations Respiratory: Reports: Dyspnea, Dyspnea on exertion. Denies: Cough Gastrointestinal: Denies: Abdominal pain, Nausea, Vomiting, Diarrhea, Melena, Hematochezia Genitourinary: Denies: Dysuria, Hematuria, Frequency Musculoskeletal: Denies: Back pain, Extremity Pain Skin: Denies: Rash, Wounds Neurological: Denies: Headache, Weakness, Numbness Physical Exam Vital Signs/Narrative: Vital Signs Temp Pulse Resp BP Pulse Ox 03/12/20 06:04 98.7 F 81 27 H 158/72 H 96 Inital Vital Signs reviewed: Yes General: Well nourished, Well developed, No Acute Distress Head: Normocephalic, Atraumatic Eyes: Perrl, EOMI ENT: Moist mucous membranes, No rhinorrhea Neck: Supple, Nontender Cardiovascular: Regular rate, Regular rhythm, Murmur Respiratory: No distress, Chest nontender, Decreased Air Movement Abdomen: Soft, Nontender, Nondistended, Normal bowel sounds Back: Nontender, Normal Inspection Extremities: Nontender, No edema Skin: Normal color, No rash Neurological: Alert, Oriented x3, Cranial nerves II-XII grossly intact, Normal Strength, Normal Sensation Psychological: Normal affect, Normal Mood Diagnostic/Tx/Re-eval Clinical Impression(s) from Imaging Studies Chest X-Ray 03/12/20 06:34 IMPRESSION: No acute cardiopulmonary disease. No significant interval change. Other nonacute findings as outlined above. Electronically Signed: Kendra Omer MD at 7:06 EDT , Service support , Abnormal Lab Results 03/12/20 03/12/20 03/12/20 06:29 06:29 06:29 WBC 6.7 RBC 3.08 L Hgb 7.4 L Hct 25.3 L MCV 82.1 MCH 24.0 L MCHC 29.2 L RDW Std Deviation 49.1 H RDW Coeff of Darren 17.1 H Plt Count 245 MPV 11.4 Immature Gran % (Auto) 1.300 H Neut % (Auto) 65.9 Lymph % (Auto) 23.0 [place] % (Auto) 6.7 Eos % (Auto) 2.5 Baso % (Auto) 0.6 Absolute Neuts (auto) 4.4 Absolute Lymphs (auto) 1.55 Nucleated RBC % 0 D-Dimer Quant (PE/DVT) 0.61 H* Sodium 139 Potassium 3.8 Chloride 106 Carbon Dioxide 27.0 Anion Gap 6 BUN 10 Creatinine 0.88 Estim Creat Clear Calc 86.77 Est GFR (MDRD) Af Amer 94 Est GFR (MDRD) Non-Af 78 BUN/Creatinine Ratio 11.4 Glucose 208 H Calcium 8.2 L Total Bilirubin 0.70 AST 78 H ALT 60 H Alkaline Phosphatase 50 Troponin I 0.024 B-Natriuretic Peptide Total Protein 7.1 Albumin 3.3 Globulin 3.8 Albumin/Globulin Ratio 0.9 03/12/20 06:29 WBC RBC Hgb Hct MCV MCH MCHC RDW Std Deviation RDW Coeff of Darren Plt Count MPV Immature Gran % (Auto) Neut % (Auto) Lymph % (Auto) [place] % (Auto) Eos % (Auto) Baso % (Auto) Absolute Neuts (auto) Absolute Lymphs (auto) Nucleated RBC % D-Dimer Quant (PE/DVT) Sodium Potassium Chloride Carbon Dioxide Anion Gap BUN Creatinine Estim Creat Clear Calc Est GFR (MDRD) Af Amer Est GFR (MDRD) Non-Af BUN/Creatinine Ratio Glucose Calcium Total Bilirubin AST ALT Alkaline Phosphatase Troponin I B-Natriuretic Peptide 280.7 H Total Protein Albumin Globulin Albumin/Globulin Ratio - Medical Decision Making The patient does have rather significant cardiac history secondary to structural heart disease. She is had initial aortic valve replacement in 2006, which ended up being significantly tight after and had to be revised in 2012. She has been having exertional dyspnea for months but it is acutely worsened over the past week. She has not had fevers or chills. She denies any nausea or vomiting. 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 Chest x-ray does not show focal infiltrate. EKG does show lateral ST depression and inferior Q waves, but this is unchanged from prior. The patient is found to be anemic. I had a long conversation with her. She has had no significant blood loss. She states that she is had regular menstrual periods without heavy bleeding. She is had no GI bleeding. Her d-dimer is also elevated. The patient is going to undergo CTA of the chest and will be reevaluated for final disposition. Impression 1. Exertional dyspnea 2. History of aortic valve replacement 3. Anemia ED Disposition - Plan for ED Patient: Referrals: Jonas Sweet MD [Primary Care Provider] -
[2020-03-12 06:55] LABS: ALB/GLOB Ratio 0.9 RATIO (0.9-2.4); AST(SGOT) 78 U/L (15-37); Alanine Aminotransfer ALT/SGPT 60 U/L (13-56); Albumin, Serum 3.3 g/dL (3.2-5.0); Alkaline Phosphatase 50 U/L (45-117); Anion Gap 6 (5-15); BUN 10 mg/dL (7-18); BUN/Creat Ratio 11.4 RATIO (10-20); Calcium,Total 8.2 mg/dL (8.5-10.1); Chloride 106 mmol/L (98-107); Creatinine, Serum 0.88 mg/dL (0.55-1.02); EST Glomerular Filtration Rate 78 mL/min (>60); Est Glom Filt Rate - Afr Amer 94 mL/min (>60); Estimated Creatinine Clearance 86.77 ml/min; Globulin 3.8 g/dL (2.2-4.2); Glucose 208 mg/dL (74-106); Potassium 3.8 mmol/L (3.5-5.1); Protein, Total 7.1 g/dL (6.4-8.2); Sodium Level 139 mmol/L (136-145)
[2020-03-12 06:57] LABS: D-Dimer Quantitative (DVT/PE) 0.61 FEU/ug/m (0.27-0.49)
--- NOTE | 2020-03-12 07:08 | CT_ITS ---
STUDY: CTA CHEST REASON FOR EXAM: Female, 34 years old. Dyspnea one year worsening this week RADIATION DOSAGE (If Supplied By Facility): DLP = ( 512.58 ) mGycm TECHNIQUE: The examination was performed with the intravenous administration of 100 CC ISOVUE 370. Post-processing of the angiographic images was performed, with multiplanar reformation and 3D reconstruction. Individualized dose optimization techniques were used for this CT. COMPARISON: Chest x-ray 03/04/2020, 05/09/2018, CT chest 02/21/2011 FINDINGS: Upper abdomen: Hepatic steatosis with probable hepatomegaly. Body wall soft tissues: No acute process. Osseous structures: Median sternotomy. No acute process. Mild thoracic kyphoscoliosis and very minimal spondylosis. Mediastinum: Normal esophagus. A few mildly enlarged pretracheal, and subcarinal lymph nodes, the largest measuring about 16 mm, chronicity uncertain. No hilar lymphadenopathy. Lungs: There is mild interlobular septal thickening at the lung bases, no dense infiltrate, effusion or pneumothorax, no significant chronic interstitial lung changes. Best appreciated on the MIP reformats in the coronal and sagittal planes, there are subtle bibasilar groundglass opacities bilateral, perihilar and infrahilar. Heart: Bioprosthetic aortic valve, murtaza-arch graft. The left ventricle appears to be captured in diastole and there is concentric thickening of the left ventricular wall suggesting the presence of hypertrophic cardiomyopathy . Overall there is mild cardiomegaly. No pericardial effusion. Pulmonary arteries: The main pulmonary artery is ectatic, up to 3.3 cm. There is no central embolus. The peripheral pulmonary arteries appear normal. CT/CTA Chest W/WO Contrast IMPRESSION: 1. Aortic valve replacement. 2. The left ventricle is mildly dilated compared to the other chambers of the heart, and I suspect there is a component of hypertrophic cardiomyopathy, circumferential, without outflow track stenosis. 3. Central pulmonary arteries are mildly dilated. This may reflect a component of pulmonary arterial hypertension. 4. Subtle perihilar/infrahilar groundglass opacities and bibasilar interlobular septal thickening in the lungs. Suspicious for very mild congestive changes. 5. Cardiology consultation is recommended. The patient may benefit from echocardiography. 6. Hepatic steatosis with hepatomegaly. Electronically Signed: Damien Marks MD at 8:55 EDT Tel , Service support ,
[2020-03-12 07:12] LABS: BNP,B-Type NATRIURETIC PEPTIDE 280.7 pg/mL (0-100)
[2020-03-12 07:51] LABS: LDH 1132 U/L (84-246)
--- NOTE | 2020-03-12 10:11 | PCM.HP.STD ---
Problem List (1) Acute on chronic blood loss anemia Status: Chronic (2) Rosacea Status: Chronic (3) Hypertension Status: Chronic (4) Type 2 diabetes mellitus Status: Chronic (5) Hypothyroidism Status: Chronic (6) Aortic stenosis due to bicuspid aortic valve Status: Chronic (7) Diabetes type 2, uncontrolled Status: Chronic Qualifiers: Glycemic state: with hyperglycemia Qualified Code(s): E11.65 - Type 2 diabetes mellitus with hyperglycemia (8) Segmental and somatic dysfunction of thoracic region Status: Acute (9) Thoracic neuritis Status: Acute History of Present Illness Date of Admission: 03/12/20 Chief Complaint: Dyspnea on exertion for few months The patient is a 34 year old F with history of congenital heart disease of bicuspid aortic valve with severe aortic stenosis status post AVR with bioprosthetic valve at age of 21 and then 27 years came to ER with progressive worsening of shortness of breath since fall. 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 This has progressed to dyspnea on minimal to mild exertion along with chest tightness. She was short of breath at rest after she came from work yesterday. She saw her system administration manager Dr. Arvin Burgess in [facility] and had echo in August 2019 unremarkable and last tele visit in 12/2018 and physical visit 11/2018. Patient states she has heavy menstrual flow for last 2 to 3 years and her FELT COVERER is planning for putting Laura, hormonal IUD. She denies GI blood loss, epistaxis or hematuria. Denies lower urinary tract symptoms or alteration of bowel habit or abdominal pain. [] In ED, triage vitals shows respiratory rate 27 with no hypoxia. Blood pressure 158/72. She had chest x-ray and CTA done which did not show acute cardiopulmonary disease. LV mildly dilated with suspicion of mild HOCM circumferentially without outflow tract stenosis, status post AV replacement and murtaza-arch graft. Past Medical History Past Medical History (Chronic Problems): Chronic Problems (Last Reviewed 02/28/20 @ 15:26 by Megan Skelton) Acute on chronic blood loss anemia (Chronic) Rosacea (Chronic) Hypertension (Chronic) Type 2 diabetes mellitus (Chronic) Hypothyroidism (Chronic) Aortic stenosis due to bicuspid aortic valve (Chronic) Diabetes type 2, uncontrolled (Chronic) Medical History: Medical History (Last Reviewed 02/28/20 @ 15:26 by Megan Skelton) Asthma J45.909 Breast lump N63.0 Chronic headaches R51 GERD (gastroesophageal reflux disease) K21.9 Gallstones K80.20 Goiter E04.9 H/O transfusion of whole blood Z92.89 Heart murmur R01.1 High cholesterol E78.00 High triglycerides E78.1 Hypothyroidism E03.9 Polycystic ovary E28.2 Type 2 diabetes mellitus E11.9 Dx : 2013 Last exacerbation : DKA : never Hypoglycemic episode : never ER visit : never UTI (urinary tract infection) N39.0 Vision problem H54.7 heart catheterization HTN (hypertension) I10 Allergies adhesive tape Allergy (Unknown, Verified 03/12/20 06:08) Unknown Sulfa (Sulfonamide Antibiotics) Allergy (Verified 03/12/20 06:08) Rash Home Medications: Ambulatory Orders Medication Instructions Recorded Aspirin [Aspirin, Baby] 81 mg PO DAILY@0800 06/29/13 metoprolol succinate 100 mg 100 mg PO DAILY 09/23/18 capsule sprinkle, ext. release 24 hr levothyroxine 100 mcg tablet 100 mcg PO DAILY #90 tab 09/22/19 chlorthalidone 25 mg tablet 25 mg PO DAILY 11/04/19 liraglutide 0.6 mg/0.1 mL (18 mg/3 1.8 mg SC DAILY 90 Days #27 ml 11/04/19 mL) subcutaneous pen injector metformin 1,000 mg tablet 1,000 mg PO DAILY tab 11/04/19 omeprazole 20 mg capsule,delayed 20 mg PO DAILY #90 cap 11/04/19 release fluticasone propionate 50 1 spray INTRANASAL DAILY 02/02/20 mcg/actuation nasal spray,suspension montelukast 10 mg tablet 10 mg PO QHS #90 tab 02/02/20 Levocetirizine Dihydrochloride 5 mg PO DAILY 03/12/20 [Xyzal] Surgical History: Surgical History (Last Reviewed 02/28/20 @ 15:26 by Megan Skelton) H/O aortic valve replacement Z95.2 x 2 H/O aortic valvuloplasty Z98.890 H/O wisdom tooth extraction K08.409 H/O: Z98.891 x 3 Hx of cholecystectomy Z90.49 Hx of tonsillectomy Z90.89 S/P aneurysm repair Z98.890, Z86.79 Smoking Status: Never smoker Alcohol: None Drugs: None - *Family History Paternal Family History: Family History (Last Reviewed 03/12/20 @ 11:[address] Jose Luis Davison MD) Grandmother Asthma Hypertension Grandfather Asthma Arthritis Cancer Diabetes Aunt Breast cancer Autoimmune disease Uncle Cancer Mother Diabetes Thyroid disorder Father Diabetes Sister Autoimmune disease Review of Systems Constitutional: Denies: Chills, Fever, Weight Change HEENT: Reports: Nasal Congestion. Denies: Head Aches, Sinus Congestion, Sinus Drainage Cardiovascular: Reports: Chest Tightness, Edema - Transient mild right ankle edema yesterday. Denies: Palpitations Respiratory: Reports: Shortness of Breath, Shortness of breath at rest, Shortness of breath upon exertion. Denies: Cough, Sputum production Gastrointestinal: Denies: Abdominal Pain, Nausea, Vomiting Genitourinary: Denies: Dysuria, Frequency, Hesitancy, Incontinence Musculoskeletal: Denies: Joint Pain, Joint Tenderness Skin: Denies: Rash, Wounds Neurological: Denies: Numbness, Tingling, Focal weakness Psychiatric: Denies: Anxiety, Depression, Homicidal Ideations, Suicidal Ideations Hematologic/ Lymphatic: Denies: Easy Bruising, Easy Bleeding VTE Information - Inpt Only VTE Present on Admission: No VTE Mechan Device Prophylaxis: SCD's VTE Pharm Prophylaxis ordered?: No Reason prophylaxis not ordered:: Medical Contraindication - Severe anemia - Physical Exam Vitals/I&O's: Vital Signs Temp Pulse Resp BP Pulse Ox 98.7 F 76 21 H 138/70 H 100 03/12/20 06:04 03/12/20 10:09 03/12/20 10:09 03/12/20 10:09 03/12/20 10:09 Oxygen Flow Rate (L/min) 2 Oxygen Delivery Method Room Air Weight: 227 lb 8.273 oz Body Mass Index (BMI) 35.6 General: Alert, Oriented x3, Cooperative HEENT: Atraumatic, PERRLA, EOMI, Normocephalic Oral: No Gingival or Mucosal Lesions/ Ulcerations, Dry Mucosa Neck: Supple, No JVD, Negative Carotid Bruits Lungs: Clear to auscultation, Normal air movement, No rhonchi, No wheeze, No rales Cardiovascular: Regular rate, Regular Rhythm, Normal S1, Normal S2, Murmur - Bioprosthetic aortic valve sound Abdomen: Bowel Sounds Present, Soft, Non Tender, Non-Distended Extremities: Capillary Refill Less than 3 Seconds, Edema - Minimal ankle edema Skin: No rashes, No breakdown Musculoskeletal: No Tenderness to Palpation of Joints or Extremities Neurological: Cranial nerves II-XII grossly intact Psych/Mental Status: Normal Affect, Appropriate Laboratory Results 03/12/20 06:29: WBC 6.7, RBC 3.08 L, Hgb 7.4 L, Hct 25.3 L, MCV 82.1, MCH 24.0 L, MCHC 29.2 L, RDW Std Deviation 49.1 H, RDW Coeff of Darren 17.1 H, Plt Count 245, MPV 11.4, Immature Gran % (Auto) 1.300 H, Neut % (Auto) 65.9, Lymph % (Auto) 23.0, [place] % (Auto) 6.7, Eos % (Auto) 2.5, Baso % (Auto) 0.6, Absolute Neuts (auto) 4.4, Absolute Lymphs (auto) 1.55, Nucleated RBC % 0 03/12/20 06:29: D-Dimer Quant (PE/DVT) 0.61 H* 03/12/20 06:29: Sodium 139, Potassium 3.8, Chloride 106, Carbon Dioxide 27.0, Anion Gap 6, BUN 10, Creatinine 0.88, Estim Creat Clear Calc 86.77, Est GFR (MDRD) Af Amer 94, Est GFR (MDRD) Non-Af 78, BUN/Creatinine Ratio 11.4, Glucose 208 H, Calcium 8.2 L, Total Bilirubin 0.70, AST 78 H, ALT 60 H, Alkaline Phosphatase 50, Troponin I 0.024, Total Protein 7.1, Albumin 3.3, Globulin 3.8, Albumin/Globulin Ratio 0.9 03/12/20 06:29: B-Natriuretic Peptide 280.7 H 03/12/20 06:29: Lactate Dehydrogenase 1132 H 03/12/20 07:25: Direct Antiglob Test Pending 03/12/20 07:28: Blood Type A NEGATIVE, Antibody Screen NEGATIVE 03/12/20 07:28: Crossmatch See Detail Current Medications Iopamidol (Contrast Allergy Check) 0 ml IV X1 LUIS ALBERTO Assessment/Plan All Active Problems (Last Reviewed 02/28/20 @ 15:26 by Megan Skelton) Segmental and somatic dysfunction of thoracic region (Acute) Thoracic neuritis (Acute) The patient is a 34 year old F with history of congenital heart disease of bicuspid aortic valve with severe aortic stenosis status post AVR with bioprosthetic valve at age of 21 and then 27 years came to ER with progressive worsening of shortness of breath since fall 2018. 1. Acute on chronic anemia most probably iron deficiency anemia/blood loss anemia most probably from menorrhagia: Patient is being admitted in PCU. Admitting H&H 7.01/07. Hematology profile suggestive of iron deficiency anemia with low MCH and MCHC and elevated RDW. Anemia work-up including iron profile, hemolytic profile ordered. On telemetry. 1 unit of PRBC ordered by ER physician and will check posttransfusion H&H. Stool for occult blood ordered. Lower suspicion of hemolytic anemia as LDH is elevated in 132. 2. Dyspnea on exertion and rest: Serial troponin enzymes. Twelve-lead EKG most probably secondary to severe anemia 3. Cardiac conditions: Congenital heart disease with bicuspid aortic valve status, severe aortic stenosis with ascending aortic aneurysm status post 2 times aortic valve replacement and aortic ascending graft: Patient follows system administration manager Dr. Arvin Burgess in [facility] and had echo in August 2019 which she verbally states unremarkable and last tele visit in 12/2018 and physical visit 11/2018. Try to get echo from [facility]. BNP 280. Hold baby aspirin 4. Diabetes mellitus type 2: Glucose is 208. She is on Victoza and metformin at home. Lantus 10 units subcutaneous daily. Accu-Cheks before meals and at bedtime cover with sliding scale Humalog insulin. 5. Chronic rhinitis/sinusitis , hypertension and hypothyroidism: Home medication reconciliation done. DVT prophylaxis: On bilateral SCDs. Pharmacological prophylaxis contraindicated secondary to severe anemia Clinical Impression(s) from Imaging Studies Chest X-Ray 03/12/20 06:34 IMPRESSION: No acute cardiopulmonary disease. No significant interval change. Other nonacute findings as outlined above. Chest CTA 03/12/20 07:08 IMPRESSION: 1. Aortic valve replacement. 2. The left ventricle is mildly dilated compared to the other chambers of the heart, and I suspect there is a component of hypertrophic cardiomyopathy, circumferential, without outflow track stenosis. 3. Central pulmonary arteries are mildly dilated. This may reflect a component of pulmonary arterial hypertension. 4. Subtle perihilar/infrahilar groundglass opacities and bibasilar interlobular septal thickening in the lungs. Suspicious for very mild congestive changes. 5. Cardiology consultation is recommended. The patient may benefit from echocardiography. 6. Hepatic steatosis with hepatomegaly. Inpatient E&M: 21008 Init Hosp L3
--- NOTE | 2020-03-12 10:23 | ED.RN ---
BLOOD BANK CALLED STATING BLOOD IS READY, PCU IS READY FOR PT. SPOKE TO PCU CHARGE READY WHETHER THEY WANTED US TO HOLD THE PT TO START THE BLOOD OR IF THE WANTED TO START IT, PCU CHARGE STATED THAT THEY WOULD START IT. ED CHARGE AWARE.
[2020-03-12 11:42] LABS: Ferritin 12 ng/mL (8-252); Iron 27 ug/dL (50-170); Iron Binding Capacity,Total 365 ug/dL (250-450); PERCENT IRON SATURATION 7.4 % (15.0-55.0)
[2020-03-12 11:45] LABS: Bedside Glucose 148 mg/dL (70-110)
[2020-03-12 11:47] LABS: Platelet Count 253 K/mm3 (150-450); RET-HE 23.3 pg (30-35); Reticulocyte Count 5.64 % (0.5-1.5)
--- NOTE | 2020-03-12 11:59 | EKG12_ITS ---
Test Reason : SOB Blood Pressure : / mmHG Vent. Rate : 080 BPM Atrial Rate : 080 BPM P-R Int : 158 ms QRS Dur : 118 ms QT Int : 420 ms P-R-T Axes : 019 -01 130 degrees QTc Int : 484 ms Normal sinus rhythm Septal infarct , age undetermined ST & T wave abnormality, consider lateral ischemia Abnormal ECG When compared with ECG of 12-MAR-2020 06:56, MANUAL COMPARISON REQUIRED, DATA IS UNCONFIRMED Confirmed by GABRIEL WALKER ([id number]), website/blog editor CARL SOOD ([id number]) on 03/16/2020 12:11:04 PM Referred By: HOSP Confirmed By:GABRIEL WALKER
[2020-03-12 12:00] LABS: Magnesium 1.8 mg/dL (1.6-2.6)
--- NOTE | 2020-03-12 12:10 | ECHOD_ITS ---
Reason For Study: NORMAN Procedure This was a 2D Doppler, Color Flow transthoracic echocardiogram. Exam performed portable in patient room. Left Ventricle Normal LV size. Moderate concentric left ventricular hypertrophy. Left ventricular systolic function is normal. The estimated ejection fraction is 60 %. Stage 2 diastolic dysfunction. No regional wall motion abnormalities noted. Right Ventricle Normal RV size. Normal systolic function. Atria Normal left atrium. Normal right atrium. Mitral Valve Normal mitral valve. Mild (1+) mitral valve insufficiency. Tricuspid Valve Normal tricuspid valve. Mild (1+) tricuspid valve insufficiency. Pulmonary artery systolic pressure is 34 mmHg. Aortic Valve Trisinus/trileaflet aortic valve. Moderate diffuse aortic valve thickening. Peak aortic valve gradient 100 mmHg. Mean aortic valve gradient 67 mmHg. Severe aortic stenosis. Bioprosthetic aortic valve. Pulmonic Valve The pulmonic valve is not well visualized. Great Vessels Normal aortic root. The pulmonary artery is normal size. Normal inferior vena cava. Pericardium/Pleural No pericardial effusion. MMode/2D Measurements & Calculations LVIDd: 4.7 cm IVSd: 1.5 cm LVOT diam: 2.0 cm LVIDs: 3.1 cm LVPWd: 1.6 cm LVOT area: 3.2 cm2 RVDd: 3.9 cm FS: 32.5 % Ao root diam: 3.3 cm LAV(MOD-bp): 66.1 ml LVAd ap4: 41.1 cm2 LAV(MOD-bp) Indexed: 31.3 ml/m2 EDV(MOD-sp4): 151.7 ml LAV(MOD-sp2): 67.0 ml EDV(sp4-el): 149.7 ml LAV(MOD-sp4): 59.0 ml LVAs ap4: 24.2 cm2 ESV(MOD-sp4): 61.1 ml ESV(sp4-el): 58.3 ml EF(MOD-sp4): 59.7 % EF(sp4-el): 61.1 % SV(MOD-sp4): 90.6 ml SV(sp4-el): 91.4 ml LA A4 area: 20.1 cm2 LA dimension(2D): 4.9 cm RA A4 area: 19.2 cm2 Time Measurements MV dec time: 0.22 sec Doppler Measurements & Calculations MV E max josr: 128.3 cm/sec Lat Peak E' Josr: 10.2 cm/sec Med Peak E' Josr: 7.9 cm/sec MV A max josr: 86.5 cm/sec E/E' lat: 12.5 E/E' med: 16.3 MV E/A: 1.5 Ao V2 max: 501.4 cm/sec LV V1 max: 114.5 cm/sec SV(LVOT): 109.9 ml Ao max P.6 mmHg LV V1 max P.2 mmHg Ao V2 mean: 392.6 cm/sec LV V1 mean P.1 mmHg Ao mean P.9 mmHg LV V1 mean: 82.8 cm/sec Ao V2 VTI: 130.4 cm LV V1 VTI: 34.1 cm SHARIF(I,D): 0.84 cm2 SHARIF(V,D): 0.74 cm2 PA V2 max: 172.0 cm/sec PI end-d josr: 154.4 cm/sec TR max josr: 273.2 cm/sec TR max P.8 mmHg Interpretation Summary Normal LV size. Moderate concentric left ventricular hypertrophy. Left ventricular systolic function is normal. The estimated ejection fraction is 60 %. Stage 2 diastolic dysfunction. Mean aortic valve gradient 67 mmHg. Severe aortic stenosis. No recent echo for comparison. [facility] Ordering Physician: Jose Luis Davison Referring Physician: ROBBIE PETER Performed By: Francheska Farley RDCS
[2020-03-12 16:08] LABS: Hematocrit 27.2 % (37-47)
[2020-03-12 16:26] LABS: Bedside Glucose 191 mg/dL (70-110)
[2020-03-12] MEDS: Insulin Lispro 100 UNIT/ML INSULN.PEN SC ×2 (16:29→21:54)
[2020-03-12] MEDS: Fluticasone 0.05% 1 SPRAY NASAL.SRY NASAL (21:53)
[2020-03-12] MEDS: Metoprolol(XL)Succ 100 MG Tablet PO (21:55)
[2020-03-12] MEDS: Montelukast 10 MG Tablet PO (21:55)
[2020-03-12] MEDS: Pantoprazole Sodium 20 MG Tablet PO (21:55)
[2020-03-12] MEDS: Levothyroxine 100 MCG Tablet PO (21:55)
[2020-03-12 22:41] LABS: Bedside Glucose 240 mg/dL (70-110)
[2020-03-13] VITALS (10 sets, daily range): BP systolic 130–164; BP diastolic 62–90; PULSE 72–91; RESP 12–18; TEMP 36.7–37.3; O2SAT 96–99
[2020-03-13 06:11] LABS: Absolute Lymphocyte Count 1.58 X10^3/uL (0.83-4.51); Absolute Neutrophil Count 5.5 X10^3/uL (2.0-7.7); Basophil# 0.05 X10^3/uL; Basophil% 0.6 % (0-1); Eosinophils% 2.5 % (0-5); Lymphocyte # 1.58 X10^3/ul (4.0); Lymphocyte % 19.7 % (19-41); Mean Corp Hgb Conc 28.6 g/dL (32-36); Mean Corpuscular Hgb 24.2 pg (27.0-32.0); Mean Corpuscular Volume 84.6 fL (81-99); Mean Platelet Vol. 11.6 fl (6.2-12.0); Monocyte# 0.62 X10^3/uL; Monocyte% 7.7 % (0-10); NRBC Flagged by Analyzer 0 % (0-5); Neutrophil # 5.51 X10^3/uL (2.7-7.7); Neutrophil % 68.6 % (47-70); Platelet Count 228 K/mm3 (150-450); RBC Distribution Width CV 17.2 % (11.6-14.6); RBC Distribution Width SD 51.8 fl (35.1-43.9); Red Blood Count 3.31 M/mm3 (4.2-5.4)
[2020-03-13] MEDS: Insulin Lispro 100 UNIT/ML INSULN.PEN SC ×2 (06:26→11:08)
[2020-03-13 06:37] LABS: Anion Gap 4 (5-15); BUN 9 mg/dL (7-18); BUN/Creat Ratio 11.5 RATIO (10-20); Calcium,Total 8.4 mg/dL (8.5-10.1); Chloride 102 mmol/L (98-107); Creatinine, Serum 0.78 mg/dL (0.55-1.02); EST Glomerular Filtration Rate 89 mL/min (>60); Est Glom Filt Rate - Afr Amer 108 mL/min (>60); Glucose 197 mg/dL (74-106); Potassium 3.6 mmol/L (3.5-5.1); Sodium Level 136 mmol/L (136-145); Thyroid Stim Hormone (TSH) 1.83 uIU/mL (0.358-3.74)
[2020-03-13 06:50] LABS: Bedside Glucose 187 mg/dL (70-110)
[2020-03-13] MEDS: Chlorthalidone 50 MG Tablet 25 MG PO (08:53)
[2020-03-13 09:45] LABS: Vitamin B12 404 pg/mL (211-911)
[2020-03-13 11:15] LABS: Bedside Glucose 284 mg/dL (70-110)
--- NOTE | 2020-03-13 11:28 | PCM.DC ---
- Discharge Diagnoses Current Active Problems: Current Active and Chronic Problems (Last Reviewed 02/28/20 @ 15:26 by Megan Skelton) Acute on chronic blood loss anemia (Chronic) You will use the following diet at home:: Calorie/Carbohydrate Controlled (specify 1200, 1400, etc) - 1800 ADA diet, Cardiac Your food should be the consistency of: Regular Discharge Activity: May Not Drive - for about 1 week until sees PCP Weight Bearing Status: Weight bearing as tolerated Call your doctor if you observe: Fever of 101 or Higher, Coldness, Increased Pain, Numbness or Tingling, Change in Color, Inability to urinate, Inability to have a bowel movement, Using more than one pad per hour, Shortness of breath, Dizziness, Fainting spells, Swelling in the ankles, Chest pain, Prolonged hiccoughing, Increased palpitations (irregular heartbeat) Additional Instructions: Follow-up [facility] umbrella supervisor Dr. Arvin Burgess in 2 weeks and advised to repeat echo in 6 weeks after correction of anemia and compare with previous echoes with Dr. Arvin Burgess. Allergies/Adverse Reactions: Allergies adhesive tape Allergy (Unknown, Verified 03/12/20 06:08) Unknown Sulfa (Sulfonamide Antibiotics) Allergy (Verified 03/12/20 06:08) Rash Medications to take at Discharge metoprolol succinate 100 mg capsule sprinkle, ext. release 24 hr 100 mg PO QHS 09/23/18 chlorthalidone 25 mg tablet 25 mg PO DAILY 11/04/19 liraglutide 0.6 mg/0.1 mL (18 mg/3 mL) subcutaneous pen injector 1.8 mg SC DAILY 90 Days #27 ml 11/04/19 fluticasone propionate 50 mcg/actuation nasal spray,suspension 1 spray INTRANASAL QHS 02/02/20 Levocetirizine Dihydrochloride [Xyzal] 5 mg PO QHS 03/12/20 Levothyroxine Sodium [Synthroid] 100 mcg PO QHS 03/12/20 Montelukast Sodium 10 mg PO QHS 03/12/20 Omeprazole 20 mg PO QHS 03/12/20 Ascorbic Acid [Vitamin C] 500 mg PO BID #60 tab 03/13/20 Aspirin [Aspirin, Baby] 81 mg PO QHS #0 03/13/20 Ferrous Sulfate 325 mg PO DAILY #90 tablet. 03/13/20 Mecobalamin [B12 Active] 1,000 mcg PO DAILY #30 tab.chew 03/13/20 Metformin HCl 1,000 mg PO QHS #0 tab 03/13/20 The following prescriptions were given: Mecobalamin [B12 Active] 1,000 mcg PO DAILY #30 tab.chew Transmission Status: Received by [facility] Ferrous Sulfate 325 mg PO DAILY #90 tablet.dr Transmission Status: Received by [facility] Ascorbic Acid [Vitamin C] 500 mg PO BID #60 tab Transmission Status: Received by [facility] Primary Care Physician: Jonas Sweet MD [Primary Care Provider] - Please follow up with your Primary Care Physician in: IN 1-2 WEEKS Test Results: Test results from this visit will be discussed in further detail at your follow-up appointment, if applicable.
--- NOTE | 2020-03-13 11:41 | CASEMGMT ---
JOSE GUADALUPE BELL assessment: Face to Face with patient for initial transition planning/care coordination assessment. JOSE GUADALUPE BELL introduced self and role at [facility], pt voices understanding and consents to assessment at this time. Pt is sitting up in bed in no distress at this time. Pt is A/Ox4 at this time and answers all questions appropriately at this time. Care providers, pharmacy, and demographics verified at this time. Presentation: SOB for last year but significantly worse this week per pt Admitting dx: Severe anemia w/ dyspnea PCP: Kee Specialists: joe Baltazar Preferred Pharmacy: [facility] retail pharmacy Insurance: [facility] Prescription Benefit: [facility] Living Will/HPOA: Pt states has a LW/HPOA and is aware that they are not on file at [facility] at this time. Pt states that her , Joaquim Reis, is HPOA. LNOK: Joaquim Reis, ; Topher/Rosie Brown, parents Living Arrangements: Pt states lives with in a house and states no concerns at home at this time. Pt states is independent with ADL's. Transportation: Pt states drives self and states no transportation concerns at this time. DME/HHC: Pt states no current DME or need for any at this time. Pt states no hx of HHC or SNF in the past. Pt states no concerns with going home at time of discharge. 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 Pt states does not smoke or drink ETOH. Pt states no further concerns/needs at this time. CM to follow for any further discharge planning/needs. Advised pt to ask for CM if any further questions/concerns/needs arise, voices understanding. Pt Goal: Home Plan[place] JOSE GUADALUPE BELL
--- NOTE | 2020-03-13 14:37 | CON.PCM_ITS ---
Reason for Consult Date of Consultation: 03/13/20 History of Present Illness: The patient is a 34 year old F with history of congenital heart disease of bicuspid aortic valve with severe aortic stenosis status post AVR with bioprosthetic valve at age of 21 and then 27 years came to ER with progressive worsening of shortness of breath since fall. 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 and has been getting short of breath first at night along with burning chest pain when she lays down on the left side. This has progressed to dyspnea on minimal to mild exertion along with chest tightness. She was short of breath at rest after she came from work yesterday. She saw her box car checker Dr. Arvin Burgess in [facility] and had echo in August 2019 which demonstrated and normal EF and mean gradient of 24 and preserved EF. Incidentally she was also noted to be anemic and is currently receiving blood transfusion. Cardiology was asked to see the patient based on her request. Past Medical History Allergies/Adverse Reactions: Allergies adhesive tape Allergy (Unknown, Verified 03/12/20 06:08) Unknown Sulfa (Sulfonamide Antibiotics) Allergy (Verified 03/12/20 06:08) Rash Home Medications: Ambulatory Orders Medication Instructions Recorded metoprolol succinate 100 mg 100 mg PO QHS 09/23/18 capsule sprinkle, ext. release 24 hr chlorthalidone 25 mg tablet 25 mg PO DAILY 11/04/19 liraglutide 0.6 mg/0.1 mL (18 mg/3 1.8 mg SC DAILY 90 Days #27 ml 11/04/19 mL) subcutaneous pen injector fluticasone propionate 50 1 spray INTRANASAL QHS 02/02/20 mcg/actuation nasal spray,suspension Levocetirizine Dihydrochloride 5 mg PO QHS 03/12/20 [Xyzal] Levothyroxine Sodium [Synthroid] 100 mcg PO QHS 03/12/20 Montelukast Sodium 10 mg PO QHS 03/12/20 Omeprazole 20 mg PO QHS 03/12/20 Ascorbic Acid [Vitamin C] 500 mg PO BID #60 tab 03/13/20 Aspirin [Aspirin, Baby] 81 mg PO QHS #0 03/13/20 Ferrous Sulfate 325 mg PO DAILY #90 tablet. 03/13/20 Mecobalamin [B12 Active] 1,000 mcg PO DAILY #30 tab.chew 03/13/20 Metformin HCl 1,000 mg PO QHS #0 tab 03/13/20 Past Medical History (Chronic Problems): Chronic Problems (Last Reviewed 02/28/20 @ 15:26 by Megan Skelton) Acute on chronic blood loss anemia (Chronic) Rosacea (Chronic) Hypertension (Chronic) Type 2 diabetes mellitus (Chronic) Hypothyroidism (Chronic) Aortic stenosis due to bicuspid aortic valve (Chronic) Diabetes type 2, uncontrolled (Chronic) Surgical History: - - aortic valve surgery Psychiatric History: No pertinent psych hx [employer] History: No pertinent [employer] history - *Family History Paternal Family History: Family History (Last Reviewed 03/12/20 @ 11:[address] Jose Luis Davison MD) Grandmother Asthma Hypertension Grandfather Asthma Arthritis Cancer Diabetes Aunt Breast cancer Autoimmune disease Uncle Cancer Mother Diabetes Thyroid disorder Father Diabetes Sister Autoimmune disease Smoking Status: Never smoker Alcohol: None Drugs: None Review of Systems - Review of Systems General: Denies: Fever, Night Sweats, Fatigue HEENT: Denies: Vision Change Cardiovascular: Reports: Shortness of Breath. Denies: Chest Discomfort, Orthopnea, PND, Peripheral Edema, Palpitations, Lightheadedness, Dizziness, Near Syncope, Syncope Respiratory: Denies: Cough, Sputum Production, Hemoptysis Gastrointestinal: Denies: Hematemesis, Hematochezia, Melena Genitourinary: Denies: Dysuria, Hematuria Skin: Denies: Rash Subjectve: pleasant lady in no distress receiving blood Objective: Vital Signs Temp Pulse Resp BP Pulse Ox 99.2 F H 73 18 130/64 H 99 03/13/20 13:30 03/13/20 13:30 03/13/20 13:30 03/13/20 13:30 03/13/20 13:30 Oxygen Flow Rate (L/min) 2 Oxygen Delivery Method Room Air Weight: 222 lb 7.143 oz Body Mass Index (BMI) 34.8 Intake and Output for Last 24 Hours 03/11/20 03/12/20 03/13/20 23:59 23:59 23:59 Intake Total 800 / 800 510 / 510 Balance 800 / 800 510 / 510 General: Awake, Alert, Oriented x 3 HEENT: PERRL, EOMI, Sclera Non Icteric Oral: Moist Mucosa Neck: Supple, Good ROM, No Lymph Node Enlargement Chest Wall: Midline Sternotomy Incision Lungs: Clear to auscultation Cardiovascular: Regular Rhythm, Normal S1, Normal S2, No Rubs, No Gallops Murmur Murmur: Grade 3/6, Early Systolic, LLSB Vascular: No Carotid Bruits, Normal Femoral Pulses, Normal Radial Pulses, Normal Dorsalis Pedal Pulse, Normal Posterior Tibial Pulses Abdomen: Bowel Sounds Present, Soft, Non Tender, No HSM, No Organomegaly Extremities: No Cyanosis, No Clubbing, No edema Musculoskeletal: No Erythema Skin: No Rashes Lymphatic: No Lymph Node Enlargement Neurological: No Focal Motor or Sensory Deficit Psych/Mental Status: Appropriate 03/12/20 14:44: Troponin I 0.021 03/12/20 16:01: Hgb 8.0 L, Hct 27.2 L 03/12/20 17:37: Troponin I 0.020 03/13/20 05:25: WBC 8.0, RBC 3.31 L, Hgb 8.0 L, Hct 28.0 L, MCV 84.6, MCH 24.2 L , MCHC 28.6 L, Plt Count 228, MPV 11.6, Immature Gran % (Auto) 0.900, Neut % (Auto) 68.6, Lymph % (Auto) 19.7, [place] % (Auto) 7.7, Eos % (Auto) 2.5, Baso % (Auto) 0.6, Absolute Neuts (auto) 5.5, Nucleated RBC % 0 03/13/20 05:25: Sodium 136, Potassium 3.6, Chloride 102, Carbon Dioxide 30.0, Anion Gap 4 L, BUN 9, Creatinine 0.78, Est GFR (MDRD) Af Amer 108, Est GFR (MDRD) Non-Af 89, BUN/Creatinine Ratio 11.5, Glucose 197 H, Calcium 8.4 L Rhythm: EKG: ECHO: Preserved ejection fraction with concentric left ventricular hypertrophy and severe prosthetic aortic stenosis, with a mean gradient of 67 mmHg and a peak gradient of 100 mmHg. Stress Test: Cardiac Cath: PCI: CT Surgery: Holter monitor: EPS: PPM: CXR: Chest CT Scan: Assessment/Plan 1. Severe aortic prosthetic valve stenosis * Patient appears to have severe prosthetic aortic valve stenosis. The gradients may be increased due to the anemia. I do not see any evidence of endocarditis. It is difficult to tell whether her shortness of breath and mild congestive heart failure is secondary to the valve all the anemia or other combination. It may be prudent to repeat her echocardiogram in 4 to 6 weeks after her anemia has been corrected. This may be compared with a previous echocardiogram performed in August 2019 with her adult congenital heart disease specialist. Depending on those findings further recommendations will be made. I discussed the above with her and she understands and agrees to proceed. * * 2. Shortness of breath--diastolic heart failure * She does appear to have mild to diastolic heart failure. She has been administered some Lasix and this to be continued as necessary. I do not think that this is secondary to coronary disease. * Thank you for allowing me to participate in the care of your patient. Please don't hesitate to call if any issues arise.
--- NOTE | 2020-03-13 15:43 | PCM.DC.SUM ---
Discharge Date and Diagnosis Date of Admission: 03/12/20 Date of Discharge: 03/13/20 - Primary Discharge Diagnosis Acute Problems: 1.Acute on chronic anemia most probably iron deficiency anemia/blood loss anemia most probably from menorrhagia or mild hemolytic anemia 2. Acute mild/transient diastolic heart failure probably secondary to worsening of aortic stenosis from severe anemia with baseline congenital heart disease with bicuspid aortic valve status, severe aortic stenosis with ascending aortic aneurysm status post 2 times aortic valve replacement and aortic ascending graft - Secondary Discharge Diagnosis Chronic Problems: Chronic Problems (Last Reviewed 02/28/20 @ 15:26 by Megan Skelton) Acute on chronic blood loss anemia (Chronic) Rosacea (Chronic) Hypertension (Chronic) Type 2 diabetes mellitus (Chronic) Hypothyroidism (Chronic) Aortic stenosis due to bicuspid aortic valve (Chronic) Diabetes type 2, uncontrolled (Chronic) Hospital Course and Treatment Summary of Care Provided: [] The patient is a 34 year old F with history of congenital heart disease of bicuspid aortic valve with severe aortic stenosis status post AVR with bioprosthetic valve at age of 21 and then 27 years came to ER with progressive worsening of shortness of breath since fall 2018. 1. Acute on chronic anemia most probably iron deficiency anemia/blood loss anemia most probably from menorrhagia or mild hemolytic anemia: Patient is being admitted in PCU. Admitting H&H 7.01/07. Hematology profile suggestive of iron deficiency anemia with low MCH and MCHC and elevated RDW. Anemia work-up including iron profile, hemolytic profile ordered. Anemia work-up consistent with iron deficiency anemia, iron 27, ferritin 12. Mildly elevated transaminases, LDH 1132. Elevated immature reticulocyte panel suggestive of reactive bone marrow possible due to iron deficiency anemia with low suspicion of hemolytic anemia. Patient had 2 units of PRBC transfusion and 1 200 mg IV iron infusion. Lasix 40 mg IV 1 dose given. K-Dur 40 M EQ replaced. Stool for occult blood negative. TSH normal. Posttransfusion H&H 9 g / 30% after 2 units of PRBC transfusion. 2. Acute mild/transient diastolic heart failure probably secondary to worsening of aortic stenosis from severe anemia with baseline congenital heart disease with bicuspid aortic valve status, severe aortic stenosis with ascending aortic aneurysm status post 2 times aortic valve replacement and aortic ascending graft 2. Dyspnea on exertion and rest: Serial troponin enzymes. Twelve-lead EKG shows normal sinus rhythm with old septal infarct with, old Q waves in inferior leads. No change from previous EKG of April 2018. 3. Cardiac conditions: Acute mild/transient diastolic heart failure probably secondary to worsening of aortic stenosis from severe anemia with baseline congenital heart disease with bicuspid aortic valve status, severe aortic stenosis with ascending aortic aneurysm status post 2 times aortic valve replacement and aortic ascending graft: Patient follows reinforcement maker Dr. Arvin Burgess in [facility] [place] and had echo in August 2019. Last tele visit in 12/2018 and physical visit 11/2018. Echo from August 2019 received from [facility] [place] reported as preserved EF with mean aortic valve gradient 24 and mild concentric LVH. Repeat 2D echo done today showed reported EF 60% with moderate concentric LVH, stage II diastolic dysfunction and mean aortic valve gradient 67 mmHg consistent with severe aortic stenosis. Marketing Project Specialist consult requested and appreciated. Discussed with Dr. javed. There is worsening of aortic valve gradient and aortic stenosis probably secondary to anemia or bioprosthetic aortic valve or combination. Was advised to repeat echo in 4 to 6 weeks after anemia is corrected. Follow-up with Dr. Arvin Burgess for further recommendations depending on echo findings. Patient was given Lasix. CT chest shows mild LV dilatation with component of hypertrophic cardiomyopathy circumferential without outflow tract stenosis. 4. Diabetes mellitus type 2: Glucose is 208. She is on Victoza and metformin at home. Lantus 10 units subcutaneous daily. Accu-Cheks before meals and at bedtime cover with sliding scale Humalog insulin. Blood sugars are controlled. 5. Chronic rhinitis/sinusitis , hypertension and hypothyroidism: DVT prophylaxis: On bilateral SCDs. Pharmacological prophylaxis contraindicated secondary to severe anemia Discharge medication reconciliation done. Discharge follow-up instructions completed. Discharge process discussed with the patient and all questions were answered to patient's satisfaction. Patient was advised to hold aspirin for 5 days. Discharged on iron, ferrous sulfate, vitamin C and B12. Follow-up with PCP in 1 to 2 weeks. Total time spent, exact 35 minutes on discharge meds reconciliation, examination, coordination of care with nurses and ancillary staff, review of imaging and blood test and discussion with the patient on follow-up instructions Clinical Impression(s) from Imaging Studies Chest X-Ray 03/12/20 06:34 IMPRESSION: No acute cardiopulmonary disease. No significant interval change. Other nonacute findings as outlined above. Electronically Signed: Kendra Omer MD at 7:06 EDT , Service support , Chest CTA 03/12/20 07:08 IMPRESSION: 1. Aortic valve replacement. 2. The left ventricle is mildly dilated compared to the other chambers of the heart, and I suspect there is a component of hypertrophic cardiomyopathy, circumferential, without outflow track stenosis. 3. Central pulmonary arteries are mildly dilated. This may reflect a component of pulmonary arterial hypertension. 4. Subtle perihilar/infrahilar groundglass opacities and bibasilar interlobular septal thickening in the lungs. Suspicious for very mild congestive changes. 5. Cardiology consultation is recommended. The patient may benefit from echocardiography. 6. Hepatic steatosis with hepatomegaly. Electronically Signed: Damien Marks MD at 8:55 EDT Tel , Service support , Objective: Patient is not short of breath at rest but easily gets dyspnea on exertion, mild to moderate. Blood pressure is elevated mainly secondary to PRBC transfusion probably fluid overload. No hypoxia or tachypnea. Lasix 40 mg IV ordered. - Physical Exam Vitals/I&O's: Vital Signs Temp Pulse Resp BP Pulse Ox 98.4 F 75 14 145/78 H 99 03/13/20 08:53 03/13/20 08:53 03/13/20 08:53 03/13/20 08:53 03/13/20 08:53 Oxygen Flow Rate (L/min) 2 Oxygen Delivery Method Room Air Weight: 222 lb 7.143 oz Body Mass Index (BMI) 34.8 Intake and Output for Last 24 Hours 03/11/20 03/12/20 03/13/20 23:59 23:59 23:59 Intake Total 800 / 800 Balance 800 / 800 General: Alert, Oriented x3, Cooperative HEENT: Atraumatic, PERRLA, EOMI, Normocephalic Neck: Supple, No JVD, Negative Carotid Bruits Lungs: Clear to auscultation, Normal air movement, No rhonchi, No wheeze, No rales Cardiovascular: Regular rate, Regular Rhythm, Normal S1, Normal S2, Murmur - Systolic murmur grade 4/6 present over aortic area. Bioprosthetic aortic click sound present. Abdomen: Bowel Sounds Present, Soft, Non Tender, Non-Distended Extremities: Capillary Refill Less than 3 Seconds, Edema - Mild edema. Skin: No rashes, No breakdown Musculoskeletal: No Tenderness to Palpation of Joints or Extremities Neurological: Cranial nerves II-XII grossly intact, Deep Tendon Reflexes 2+/4 and Symmetrical, Neuro grossly intact, Motor Exam 5/5 strength throughout Psych/Mental Status: Normal Affect, Appropriate Microbiology Past 72 Hours 03/12/20 13:10 Stool Stool Occult Blood (JEROD) - Final Laboratory Results 03/12/20 06:29: Vitamin B12 404 03/12/20 06:29: Iron 27 L, TIBC 365, Iron Saturation 7.4 L, Ferritin 12, Folate 17.00 03/12/20 07:28: Crossmatch See Detail 03/12/20 07:28: Crossmatch See Detail 03/12/20 11:11: POC Glucose 148 H 03/12/20 11:25: Retic Count 5.64 H, Immature Retic Fraction 35.90 H, Retic Hgb Equivalent 23.3 L 03/12/20 11:25: Magnesium 1.8, Troponin I 0.016 03/12/20 11:55: Haptoglobin Pending 03/12/20 14:44: Troponin I 0.021 03/12/20 16:01: Hgb 8.0 L, Hct 27.2 L 03/12/20 16:21: POC Glucose 191 H 03/12/20 17:37: Troponin I 0.020 03/12/20 21:51: POC Glucose 240 H 03/13/20 05:25: WBC 8.0, RBC 3.31 L, Hgb 8.0 L, Hct 28.0 L, MCV 84.6, MCH 24.2 L, MCHC 28.6 L, RDW Std Deviation 51.8 H, RDW Coeff of Darren 17.2 H, Plt Count 228, MPV 11.6, Immature Gran % (Auto) 0.900, Neut % (Auto) 68.6, Lymph % (Auto) 19.7, [place] % (Auto) 7.7, Eos % (Auto) 2.5, Baso % (Auto) 0.6, Absolute Neuts (auto) 5.5, Absolute Lymphs (auto) 1.58, Nucleated RBC % 0 03/13/20 05:25: Sodium 136, Potassium 3.6, Chloride 102, Carbon Dioxide 30.0, Anion Gap 4 L, BUN 9, Creatinine 0.78, Estim Creat Clear Calc 97.90, Est GFR (MDRD) Af Amer 108, Est GFR (MDRD) Non-Af 89, BUN/Creatinine Ratio 11.5, Glucose 197 H, Calcium 8.4 L, TSH 1.83 03/13/20 06:24: POC Glucose 187 H 03/13/20 11:05: POC Glucose 284 H Current Medications Acetaminophen (Tylenol) 650 mg PO Q6H PRN PRN PRN Reason: Pain Score 1-10/Temp > 100.7 F Al Hydroxide/Mg Hydroxide (Mylanta Ii) 30 ml PO Q6H PRN PRN PRN Reason: Gastric Burning Albuterol Sulfate (Ventolin Aerosols) 2.5 mg INHALATION Q2H PRN PRN PRN Reason: SOB/Wheezing Chlorthalidone (Hygroton) 25 mg PO DAILY [facility] Last Admin: 03/13/20 08:53 Dose: 25 mg Documented by: Dextrose (D50w Syringe) 0 gm IV X1 PRN; Protocol PRN Reason: Hypoglycemia Fluticasone Propionate (Flonase Nasal [place]) 1 spray NASAL QHS [facility] Last Admin: 03/12/20 21:53 Dose: 1 spray Documented by: Furosemide (Lasix) 40 mg IV X1 PRN PRN Reason: pulm edema dur PRBC transfusio Stop: 03/13/20 18:00 Glucagon () 1 mg IM .X1 PRN PRN Reason: Hypoglycemia Sodium Chloride () 500 mls @ 15 mls/hr IV PRN PRN PRN Reason: Blood Transfusion Sodium Chloride () 250 mls @ 15 mls/hr IV .[id number] PRN PRN Reason: Saline Flush Sodium Chloride () 250 mls @ 15 mls/hr IV .[id number] PRN PRN Reason: Additional IVPB Infusion Insulin Glargine (Lantus (Bkc)) 10 units SC DAILY@1100 [facility] Last Admin: 03/13/20 11:07 Dose: 10 units Documented by: Insulin Human Lispro (Humalog Kwikpen (Bk)) 0 unit SC ACHS [facility]; Protocol Last Admin: 03/13/20 11:08 Dose: 6 unit Documented by: Iopamidol (Contrast Allergy Check) 0 ml IV X1 [facility] Last Admin: 03/13/20 05:55 Dose: Not Given Documented by: Iopamidol (Contrast Allergy Check) 0 ml IV X1 [facility] Last Admin: 03/13/20 10:25 Dose: Not Given Documented by: [facility]othy[facility]) [facility] Admin: 03/12/20 21:55 Dose: 100 mcg Documented by: Loratadine (Claritin) 10 mg PO DAILY PRN PRN PRN Reason: nasal congesation Metoprolol Succinate (Toprol Xl (Beta Yoselyn)) [facility] Last Admin: 03/12/20 21:55 Dose: 100 mg Documented by: Montelukast Sodium (Singulair) [facility] Last Admin: 03/12/20 21:55 Dose: 10 mg Documented by: Morphine Sulfate () 2 mg IV Q3H PRN PRN PRN Reason: Pain Score 6-10/10 Nitroglycerin (Nitrostat) 0.4 mg SUBLINGUAL Q5M PRN PRN Reason: CARDIAC/CHEST PAIN Ondansetron HCl (Zofran) 4 mg IV Q8H PRN PRN PRN Reason: NAUSEA/VOMITING Oxycodone HCl (Oxyir) 5 mg PO Q4H PRN PRN PRN Reason: Pain Score 4-5/10 Pantoprazole Sodium (Protonix) [facility] Last Admin: 03/12/20 21:55 Dose: 20 mg Documented by: Prochlorperazine Edisylate (Compazine Iv) 5 mg IV Q4H PRN PRN PRN Reason: Breakthrough Nausea/Vomiting Senna/Docusate Sodium (Senokot-S, Brenda-Colace) 2 tablet PO BID PRN PRN PRN Reason: Constipation Sodium Chloride () 10 - 40 ml IV UD PRN PRN Reason: SALINE FLUSH Discharge Activity: May Not Drive - for about 1 week until sees PCP Weight Bearing Status: Weight bearing as tolerated Call your doctor if you observe: Fever of 101 or Higher, Coldness, Increased Pain, Numbness or Tingling, Change in Color, Inability to urinate, Inability to have a bowel movement, Using more than one pad per hour, Shortness of breath, Dizziness, Fainting spells, Swelling in the ankles, Chest pain, Prolonged hiccoughing, Increased palpitations (irregular heartbeat) Home Medications: Medications to take at Discharge metoprolol succinate 100 mg capsule sprinkle, ext. release 24 hr 100 mg PO QHS 09/23/18 chlorthalidone 25 mg tablet 25 mg PO DAILY 11/04/19 liraglutide 0.6 mg/0.1 mL (18 mg/3 mL) subcutaneous pen injector 1.8 mg SC DAILY 90 Days #27 ml 11/04/19 fluticasone propionate 50 mcg/actuation nasal spray,suspension 1 spray INTRANASAL QHS 02/02/20 Levocetirizine Dihydrochloride [Xyzal] 5 mg PO QHS 03/12/20 Levothyroxine Sodium [Synthroid] 100 mcg PO QHS 03/12/20 Montelukast Sodium 10 mg PO QHS 03/12/20 Omeprazole 20 mg PO QHS 03/12/20 Ascorbic Acid [Vitamin C] 500 mg PO BID #60 tab 03/13/20 Aspirin [Aspirin, Baby] 81 mg PO QHS #0 03/13/20 Ferrous Sulfate 325 mg PO DAILY #90 tablet. 03/13/20 Mecobalamin [B12 Active] 1,000 mcg PO DAILY #30 tab.chew 03/13/20 Metformin HCl 1,000 mg PO QHS #0 tab 03/13/20 Following Prescrptions Were Given to Patient: Mecobalamin [B12 Active] 1,000 mcg PO DAILY #30 tab.chew Transmission Status: Received by [facility] Ferrous Sulfate 325 mg PO DAILY #90 tablet. Transmission Status: Received by [facility] Ascorbic Acid [Vitamin C] 500 mg PO BID #60 tab Transmission Status: Received by [facility] Primary Care Physician: Jonas Sweet MD [Primary Care Provider] - Please follow up with your Primary Care Physician in: IN 1-2 WEEKS Medical Necessity - Tobacco Use Smoking Status: Never smoker Meaningful Use Info Meaningful Use Diagnoses (Choose all that apply): None applicable Inpatient E&M: 91550 [facility]
[2020-03-13] MEDS: Furosemide 40 MG/4 ML Vial IV (16:08)
[2020-03-13 16:49] LABS: Hematocrit 30.3 % (37-47)
[2020-03-14 15:47] LABS: Haptoglobin < 10 mg/dL (33-278)
== END 2020-03-13 18:05 | disposition home or self-care (01) | DRG 811 ==
LOC: ED 07:49 → PCU 11:52
PROVIDERS: Admitting Provider Internal Medicine; Emergency Provider Emergency Medicine; PCP Internal Medicine; Visit Provider Internal Medicine
DX: D62 Acute posthemorrhagic anemia (principal); I50.31 Acute diastolic (congestive) heart failure; T82.857A Stenosis of other cardiac prosthetic devices, implants and grafts, initial encounter; Q23.1 Congenital insufficiency of aortic valve; D50.9 Iron deficiency anemia, unspecified; Y83.1 Surgical operation with implant of artificial internal device as the cause of abnormal reaction of the patient, or of later complication, without mention of misadventure at the time of the procedure; N92.0 Excessive and frequent menstruation with regular cycle; E11.65 Type 2 diabetes mellitus with hyperglycemia; E03.9 Hypothyroidism, unspecified; J45.909 Unspecified asthma, uncomplicated; Z79.84 Long term (current) use of oral hypoglycemic drugs; Z79.890 Hormone replacement therapy; Z79.899 Other long term (current) drug therapy; Z95.3 Presence of xenogenic heart valve
CPT/HCPCS: 36415; 71046; 71275; 80048; 80053; 82274; 82607; 82728; 82746; 82962; 83010; 83540; 83550; 83615; 83735; 83880; 84443; 84484; 85014; 85018; 85025; 85045; 85379; 86850; 86880; 86900; 86901; 86920; 93005; 93306; 99251; 99285; J1756; J7040; P9016; Q9967; A4216; G0463; J1940

== ENCOUNTER → 2020-03-21 14:59 | Outpatient (CLI) | payer OTHER, SELFPAY ==
[2020-03-21 14:01] VITALS: BMI 33.2
[2020-03-21 15:02] LABS: Mucous, Urine 0 SEEN /hpf (<or=2+); Red Blood Cells-Urine 0 SEEN /hpf (0-5); White Blood Cells 0 SEEN /hpf (0-5)
[2020-03-21 17:23] LABS: Absolute Lymphocyte Count 2.16 X10^3/uL (0.83-4.51); Absolute Neutrophil Count 5.8 X10^3/uL (2.0-7.7); Basophil# 0.09 X10^3/uL; Eosinophil# 0.23 X10^3/uL; Eosinophils% 2.6 % (0-5); Hematocrit 37.2 % (37-47); Hemoglobin 11.3 g/dL (12.0-15.0); Lymphocyte # 2.16 X10^3/ul (4.0); Lymphocyte % 24.3 % (19-41); Mean Corp Hgb Conc 30.4 g/dL (32-36); Mean Corpuscular Hgb 26.3 pg (27.0-32.0); Mean Corpuscular Volume 86.5 fL (81-99); Monocyte# 0.57 X10^3/uL; Monocyte% 6.4 % (0-10); NRBC Flagged by Analyzer 0 % (0-5); Neutrophil # 5.76 X10^3/uL (2.7-7.7); Neutrophil % 64.7 % (47-70); POSITIVE MORPHOLOGY YES; Platelet Count 306 K/mm3 (150-450); RBC Distribution Width CV 20.4 % (11.6-14.6); RBC Distribution Width SD 63.7 fl (35.1-43.9); White Blood Count 8.9 K/mm3 (4.4-11.0)
[2020-03-21 17:28] LABS: Differential Indicated SCAN CRITERIA MET
[2020-03-21 17:33] LABS: Color, Urine Yellow (Yellow); Glucose, Dipstick Normal (Normal); Ketone-Dipstick 5 mg/dl (Negative); Leukocyte Esterase-Dipstick Negative /ul (Negative); Nitrite-Dipstick Negative (Negative); Occult Blood-Urine 25 /ul (Negative); Protein-Dipstick 30 mg/dl (Negative); Specific Gravity, Urine 1.015 (1.002-1.030); Urine Bilirubin Dipstick Negative (Negative); Urine Clarity Clear (Clear); Urine Urobilinogen Normal (Normal)
[2020-03-21 17:45] LABS: Microalbumin:Creatinine Ratio 289.5 mg/g CRE (<30 mg/g CRE)
[2020-03-21 17:46] LABS: Thyroid Stim Hormone (TSH) 2.42 uIU/mL (0.358-3.74)
[2020-03-21 18:01] LABS: Anisocytosis 1+; Differential Comment SCANNED
[2020-03-21 18:08] LABS: Bacteria RARE /hpf (None Seen); Squamous Epithelial Cells - UA 0-5 SEEN /hpf (5-10)
== END ==
PROVIDERS: Nurse Practitioner Family; PCP Internal Medicine; Referring Provider Internal Medicine; Visit Provider Internal Medicine
DX: D62 Acute posthemorrhagic anemia (principal); R31.9 Hematuria, unspecified; E03.9 Hypothyroidism, unspecified; E11.9 Type 2 diabetes mellitus without complications; R80.9 Proteinuria, unspecified
CPT/HCPCS: 36415; 81001; 82043; 82570; 84443; 85025

== ENCOUNTER → 2020-04-03 09:27 | Outpatient (CLI) | payer OTHER, SELFPAY ==
[2020-03-21 14:01] VITALS: BMI 33.2
[2020-04-03 10:26] LABS: Absolute Lymphocyte Count 1.88 X10^3/uL (0.83-4.51); Absolute Neutrophil Count 4.7 X10^3/uL (2.0-7.7); Basophil# 0.07 X10^3/uL; Basophil% 0.9 % (0-1); Eosinophil# 0.23 X10^3/uL; Eosinophils% 3.1 % (0-5); Hematocrit 33.1 % (37-47); Hemoglobin 10.6 g/dL (12.0-15.0); Lymphocyte # 1.88 X10^3/ul (4.0); Mean Corpuscular Hgb 28.1 pg (27.0-32.0); Mean Corpuscular Volume 87.8 fL (81-99); Monocyte% 6.7 % (0-10); NRBC Flagged by Analyzer 0 % (0-5); Neutrophil # 4.72 X10^3/uL (2.7-7.7); Neutrophil % 62.8 % (47-70); POSITIVE MORPHOLOGY YES; Platelet Count 292 K/mm3 (150-450); RBC Distribution Width CV 21.6 % (11.6-14.6); RBC Distribution Width SD 66.5 fl (35.1-43.9); RET-HE 37.2 pg (30-35); Red Blood Count 3.77 M/mm3 (4.2-5.4); Reticulocyte Count 5.68 % (0.5-1.5); White Blood Count 7.5 K/mm3 (4.4-11.0)
[2020-04-03 10:41] LABS: Differential Indicated SCAN CRITERIA MET
[2020-04-03 10:58] LABS: ALB/GLOB Ratio 0.9 RATIO (0.9-2.4); AST(SGOT) 67 U/L (15-37); Alanine Aminotransfer ALT/SGPT 41 U/L (13-56); Albumin, Serum 3.6 g/dL (3.2-5.0); Alkaline Phosphatase 49 U/L (45-117); Anion Gap 7 (5-15); BUN 15 mg/dL (7-18); BUN/Creat Ratio 17.6 RATIO (10-20); Calcium,Total 8.8 mg/dL (8.5-10.1); Chloride 103 mmol/L (98-107); Creatinine, Serum 0.85 mg/dL (0.55-1.02); EST Glomerular Filtration Rate 81 mL/min (>60); Est Glom Filt Rate - Afr Amer 97 mL/min (>60); Globulin 4.2 g/dL (2.2-4.2); Glucose 206 mg/dL (74-106); Potassium 3.7 mmol/L (3.5-5.1); Protein, Total 7.8 g/dL (6.4-8.2); Sodium Level 139 mmol/L (136-145)
[2020-04-03 11:03] LABS: LDH 1052 U/L (84-246)
[2020-04-03 11:31] LABS: Anisocytosis 1+
[2020-04-04 15:49] LABS: Haptoglobin < 10 mg/dL (33-278)
== END ==
PROVIDERS: Nurse Practitioner Family; PCP Internal Medicine; Referring Provider Internal Medicine; Visit Provider Internal Medicine
DX: D59.9 Acquired hemolytic anemia, unspecified (principal); E11.9 Type 2 diabetes mellitus without complications
CPT/HCPCS: 36415; 80053; 83010; 83615; 85025; 85045; 86038; 86225; 86235

== ENCOUNTER → 2020-04-18 10:17 | Outpatient (CLI) | payer OTHER, SELFPAY ==
[2020-04-18 09:59] VITALS: BMI 33.2
[2020-04-18 12:47] LABS: Hemoglobin A1c 6.2 % (3.8-5.6)
[2020-04-19 14:08] LABS: ANTINUCLEAR ANTIBODIES DIRECT Positive (Negative); Anti-Centromere B Ab <0.2 AI (0.0-0.9); Anti-Chromatin <0.2 AI (0.0-0.9); Anti-Jo <0.2 AI (0.0-0.9); Anti-Scleroderma-70 AB <0.2 AI (0.0-0.9); RNP Ab 1.3 AI (0.0-0.9); SJOGREN'S Anti-SS-A test < 0.2 AI (0.0-0.9); SJOGREN'S Anti-SS-B test < 0.2 AI (0.0-0.9); Smith Ab <0.2 AI (0.0-0.9)
[2020-04-19 14:42] LABS: Anti-dsDNA Ab 1 IU/mL (0-9)
== END ==
PROVIDERS: PCP Internal Medicine; Referring Provider Internal Medicine; Visit Provider Internal Medicine
DX: E11.9 Type 2 diabetes mellitus without complications (principal)
CPT/HCPCS: 83036; 86038; 86225; 86235

== ENCOUNTER → 2020-04-20 15:17 | Outpatient (CLI) | payer OTHER, SELFPAY ==
[2020-04-18 09:59] VITALS: BMI 33.2
[2020-04-20 14:54] VITALS: BMI 33.2
[2020-04-20 15:28] VITALS: BP 119/70; PULSE 89; RESP 16; O2SAT 99; BMI 33.4
== END ==
PROVIDERS: PCP Internal Medicine; Referring Provider Internal Medicine Hematology & Oncology; Visit Provider Internal Medicine Hematology & Oncology
DX: D50.9 Iron deficiency anemia, unspecified (principal); K90.9 Intestinal malabsorption, unspecified
CPT/HCPCS: 96365; J1756; J7050; A4216

== ENCOUNTER → 2020-04-24 08:09 | Outpatient (CLI) | payer OTHER, SELFPAY ==
[2020-04-20 15:28] VITALS: BMI 33.4
[2020-04-24 08:29] VITALS: BP 135/63; PULSE 94; RESP 16; TEMP 36.1; O2SAT 100; BMI 33.4
[2020-04-24 09:15] VITALS: BP 121/64; PULSE 89; RESP 16
[2020-04-24 14:50] LABS: Absolute Lymphocyte Count 1.87 X10^3/uL (0.83-4.51); Absolute Neutrophil Count 5.6 X10^3/uL (2.0-7.7); Basophil# 0.07 X10^3/uL; Basophil% 0.8 % (0-1); Eosinophil# 0.21 X10^3/uL; Eosinophils% 2.5 % (0-5); Hematocrit 32.7 % (37-47); Hemoglobin 10.8 g/dL (12.0-15.0); Lymphocyte # 1.87 X10^3/ul (4.0); Lymphocyte % 22.4 % (19-41); Mean Corpuscular Volume 90.8 fL (81-99); Mean Platelet Vol. 11.6 fl (6.2-12.0); Monocyte# 0.47 X10^3/uL; Monocyte% 5.6 % (0-10); NRBC Flagged by Analyzer 0 % (0-5); Neutrophil # 5.63 X10^3/uL (2.7-7.7); Neutrophil % 67.6 % (47-70); POSITIVE MORPHOLOGY YES; Platelet Count 268 K/mm3 (150-450); RBC Distribution Width CV 20.9 % (11.6-14.6); RBC Distribution Width SD 68.6 fl (35.1-43.9); White Blood Count 8.3 K/mm3 (4.4-11.0)
[2020-04-24 14:55] LABS: Differential Indicated SCAN CRITERIA MET
[2020-04-24 15:36] LABS: Differential Comment SCANNED
== END ==
PROVIDERS: PCP Internal Medicine; Referring Provider Internal Medicine Hematology & Oncology; Visit Provider Internal Medicine Hematology & Oncology
DX: D50.9 Iron deficiency anemia, unspecified (principal); K90.9 Intestinal malabsorption, unspecified
CPT/HCPCS: 96365; 36415; 85025; J1756; J7050; A4216

== ENCOUNTER → 2020-04-26 15:04 | Outpatient (CLI) | payer OTHER, SELFPAY ==
[2020-04-20 15:28] VITALS: BMI 33.4
[2020-04-24 08:29] VITALS: BMI 33.4
[2020-04-26 15:48] VITALS: BP 123/61; PULSE 75; RESP 16; TEMP 36.4; O2SAT 99; BMI 33.4
[2020-04-26 16:32] VITALS: BP 126/76; PULSE 83
== END ==
PROVIDERS: PCP Internal Medicine; Referring Provider Internal Medicine Hematology & Oncology; Visit Provider Internal Medicine Hematology & Oncology
DX: D50.9 Iron deficiency anemia, unspecified (principal); K90.9 Intestinal malabsorption, unspecified
CPT/HCPCS: 96365; J1756; J7050; A4216

== ENCOUNTER → 2020-05-03 08:22 | Outpatient (CLI) | payer OTHER, SELFPAY ==
[2020-04-20 15:28] VITALS: BMI 33.4
[2020-04-26 15:48] VITALS: BMI 33.4
[2020-05-03 08:28] VITALS: BP 117/68; PULSE 84; RESP 16; TEMP 36.2; O2SAT 100; BMI 33.4
[2020-05-03 09:33] VITALS: BP 102/61; PULSE 78
== END ==
PROVIDERS: PCP Internal Medicine; Referring Provider Internal Medicine Hematology & Oncology; Visit Provider Internal Medicine Hematology & Oncology
DX: D50.9 Iron deficiency anemia, unspecified (principal); K90.9 Intestinal malabsorption, unspecified
CPT/HCPCS: 96365; J1756; J7050; A4216

== ENCOUNTER → 2020-05-05 12:56 | Outpatient (CLI) | payer OTHER, SELFPAY ==
[2020-04-20 15:28] VITALS: BMI 33.4
[2020-05-03 08:28] VITALS: BMI 33.4
[2020-05-05 13:04] VITALS: BP 128/67; PULSE 89; RESP 16; TEMP 36.3; O2SAT 99; BMI 33.4
[2020-05-05 14:09] VITALS: BP 129/68; PULSE 83; RESP 16
== END ==
PROVIDERS: PCP Internal Medicine; Referring Provider Internal Medicine Hematology & Oncology; Visit Provider Internal Medicine Hematology & Oncology
DX: D59.4 Other nonautoimmune hemolytic anemias (principal)
CPT/HCPCS: 96365; J1756; J7050; A4216

== ENCOUNTER → 2020-05-08 08:30 | Outpatient (CLI) | payer OTHER, SELFPAY ==
[2020-04-20 15:28] VITALS: BMI 33.4
[2020-05-05 13:04] VITALS: BMI 33.4
[2020-05-08 08:45] VITALS: BP 109/54; PULSE 85; RESP 16; TEMP 36.7; O2SAT 98; BMI 33.4
[2020-05-08 09:10] LABS: Absolute Lymphocyte Count 1.66 X10^3/uL (0.83-4.51); Absolute Neutrophil Count 5.6 X10^3/uL (2.0-7.7); Basophil# 0.06 X10^3/uL; Basophil% 0.7 % (0-1); Eosinophil# 0.19 X10^3/uL; Eosinophils% 2.3 % (0-5); Hematocrit 31.3 % (37-47); Hemoglobin 10.5 g/dL (12.0-15.0); Lymphocyte # 1.66 X10^3/ul (4.0); Lymphocyte % 20.3 % (19-41); Mean Corp Hgb Conc 33.5 g/dL (32-36); Mean Corpuscular Hgb 31.5 pg (27.0-32.0); Mean Platelet Vol. 11.5 fl (6.2-12.0); Monocyte# 0.52 X10^3/uL; Monocyte% 6.4 % (0-10); NRBC Flagged by Analyzer 0 % (0-5); Neutrophil # 5.63 X10^3/uL (2.7-7.7); Neutrophil % 68.8 % (47-70); POSITIVE MORPHOLOGY YES; Platelet Count 241 K/mm3 (150-450); RBC Distribution Width SD 66.8 fl (35.1-43.9); RET-HE 38.5 pg (30-35); Red Blood Count 3.33 M/mm3 (4.2-5.4); Reticulocyte Count 7.62 % (0.5-1.5); White Blood Count 8.2 K/mm3 (4.4-11.0)
[2020-05-08 09:22] LABS: Differential Indicated SCAN CRITERIA MET
[2020-05-08 09:32] LABS: ALB/GLOB Ratio 0.9 RATIO (0.9-2.4); AST(SGOT) 83 U/L (15-37); Alanine Aminotransfer ALT/SGPT 60 U/L (13-56); Albumin, Serum 3.9 g/dL (3.2-5.0); Alkaline Phosphatase 50 U/L (45-117); Anion Gap 8 (5-15); BUN 12 mg/dL (7-18); BUN/Creat Ratio 13.7 RATIO (10-20); Calcium,Total 8.4 mg/dL (8.5-10.1); Chloride 101 mmol/L (98-107); Creatinine, Serum 0.88 mg/dL (0.55-1.02); EST Glomerular Filtration Rate 78 mL/min (>60); Est Glom Filt Rate - Afr Amer 94 mL/min (>60); Globulin 4.2 g/dL (2.2-4.2); Glucose 191 mg/dL (74-106); LDH 1162 U/L (84-246); Potassium 3.6 mmol/L (3.5-5.1); Protein, Total 8.1 g/dL (6.4-8.2); Sodium Level 138 mmol/L (136-145)
[2020-05-08 10:07] LABS: Anisocytosis 1+
--- NOTE | 2020-05-08 15:11 | US_ITS ---
STUDY: ULTRASOUND OF THE FEMALE PELVIS - COMPLETE REASON FOR EXAM: Female, 34 years old. IUD IUD Placement US - Pelvic, Tvag LMP: 05/04/2012. TECHNIQUE: Transabdominal and Transvaginal TECHNICAL QUALITY: Adequate. COMPARISON: None. FINDINGS: The uterus is anteverted.. The uterus measures 7.7 x 5.5 x 4.3 cm. Normal uterine cervix. The endometrium measures 2.7 mm in thickness, and is hyperechoic. There is no demonstrated endometrial mass. There is no demonstrated myometrial mass. I.U.D. - an IUD is not visualized. The right ovary is visualized. The right ovary measures 3.5 x 3.3 x 2.2 cm. There are multiple follicles of the right ovary without a dominant cyst. There is no visualized right adnexal mass or complex lesion. There is normal arterial and normal venous vascularity. The left ovary is visualized. The left ovary measures 3.2 x 2.4 x 2.0 cm. There are multiple follicular cysts of the left ovary, ranging up to 1.9 cm. There is no visualized left adnexal mass or complex lesion. There is normal arterial and normal venous vascularity. There is no fluid in the cul-de-sac. The pre void volume of the bladder was 141 ml. The post void volume of the bladder was not measured.. Polycystic ovary disease: No. US/Pelvic (Non ) IMPRESSION: Normal female pelvis. There is no visualized IUD. Electronically Signed: Mahesh Ma MD at 7:58 EDT , Service support ,
--- NOTE | 2020-05-08 15:48 | US_ITS ---
STUDY: ULTRASOUND OF THE FEMALE PELVIS - COMPLETE REASON FOR EXAM: Female, 34 years old. IUD IUD Placement US - Pelvic, Tvag LMP: 05/04/2012. TECHNIQUE: Transabdominal and Transvaginal TECHNICAL QUALITY: Adequate. COMPARISON: None. FINDINGS: The uterus is anteverted.. The uterus measures 7.7 x 5.5 x 4.3 cm. Normal uterine cervix. The endometrium measures 2.7 mm in thickness, and is hyperechoic. There is no demonstrated endometrial mass. There is no demonstrated myometrial mass. I.U.D. - an IUD is not visualized. The right ovary is visualized. The right ovary measures 3.5 x 3.3 x 2.2 cm. There are multiple follicles of the right ovary without a dominant cyst. There is no visualized right adnexal mass or complex lesion. There is normal arterial and normal venous vascularity. The left ovary is visualized. The left ovary measures 3.2 x 2.4 x 2.0 cm. There are multiple follicular cysts of the left ovary, ranging up to 1.9 cm. There is no visualized left adnexal mass or complex lesion. There is normal arterial and normal venous vascularity. There is no fluid in the cul-de-sac. The pre void volume of the bladder was 141 ml. The post void volume of the bladder was not measured.. Polycystic ovary disease: No. US/Transvaginal Non- IMPRESSION: Normal female pelvis. There is no visualized IUD. Electronically Signed: Mahesh Ma MD at 7:58 EDT , Service support ,
[2020-05-09 10:48] LABS: Haptoglobin < 10 mg/dL (33-278)
== END ==
PROVIDERS: PCP Internal Medicine; Referring Provider Internal Medicine Hematology & Oncology; Visit Provider Internal Medicine Hematology & Oncology
DX: D59.4 Other nonautoimmune hemolytic anemias (principal); Z30.431 Encounter for routine checking of intrauterine contraceptive device; D50.9 Iron deficiency anemia, unspecified; K90.9 Intestinal malabsorption, unspecified
CPT/HCPCS: 96365; 76830; 76856; 80053; 83010; 83615; 85025; 85045; 86880; J1756; J7050; A4216

== ENCOUNTER → 2020-05-11 08:27 | Outpatient (CLI) | payer OTHER, SELFPAY ==
[2020-04-20 15:28] VITALS: BMI 33.4
[2020-05-08 08:45] VITALS: BMI 33.4
[2020-05-11 08:45] VITALS: BP 121/60; PULSE 82; RESP 16; TEMP 35.7; O2SAT 100; BMI 32.6
[2020-05-11 09:29] VITALS: BP 120/62; PULSE 84; RESP 16; O2SAT 99
== END ==
PROVIDERS: PCP Internal Medicine; Referring Provider Internal Medicine Hematology & Oncology; Visit Provider Internal Medicine Hematology & Oncology
DX: D59.4 Other nonautoimmune hemolytic anemias (principal); D50.9 Iron deficiency anemia, unspecified; K90.9 Intestinal malabsorption, unspecified
CPT/HCPCS: 96365; J1756; J7050; A4216

== ENCOUNTER → 2020-05-15 08:27 | Outpatient (CLI) | payer OTHER, SELFPAY ==
[2020-04-20 15:28] VITALS: BMI 33.4
[2020-05-11 08:45] VITALS: BMI 32.6
[2020-05-15 08:45] VITALS: BP 129/68; PULSE 84; RESP 16; TEMP 36.2; O2SAT 100; BMI 32.6
[2020-05-15 09:27] VITALS: BP 125/62; PULSE 84; RESP 16; TEMP 36.2
== END ==
PROVIDERS: PCP Internal Medicine; Referring Provider Internal Medicine Hematology & Oncology; Visit Provider Internal Medicine Hematology & Oncology
DX: D50.9 Iron deficiency anemia, unspecified (principal); K90.9 Intestinal malabsorption, unspecified
CPT/HCPCS: 96365; J1756; J7050; A4216

== ENCOUNTER 2020-05-17 06:30 | Day surgery (SDC) | payer OTHER, SELFPAY ==
[2020-04-20 15:28] VITALS: BMI 33.4
[2020-05-15 08:45] VITALS: BMI 32.6
[2020-05-17 07:12] VITALS: BP 109/65; PULSE 81; RESP 16; TEMP 36.4; O2SAT 100; BMI 32.3
--- NOTE | 2020-05-17 07:25 | HP_ITS ---
Intake Vital Signs 04/20/20 BMI 33.2 04/20/20 Height 5 ft 8 in 04/20/20 Weight: 220 lb 04/20/20 BMI 33.4 04/20/20 BP 127/77 H 04/20/20 Blood Pressure Location Rt brachial 04/20/20 Position Sitting 04/20/20 Respiration 18 Intake Visit Reasons: ANEMIA, GERD Chief Complaint: follow up Anemia/SOB [employer] Required: No Is patient in pain?: No Allergies adhesive tape Allergy (Unknown, Verified 04/26/20 15:59) Unknown Sulfa (Sulfonamide Antibiotics) Allergy (Verified 04/26/20 15:59) Rash Medications metoprolol succinate 100 mg capsule sprinkle, ext. release 24 hr 100 mg PO QHS 09/23/18 [History Confirmed 04/26/20] chlorthalidone 25 mg tablet 25 mg PO DAILY 11/04/19 [History Confirmed 04/26/20] liraglutide 0.6 mg/0.1 mL (18 mg/3 mL) subcutaneous pen injector 1.8 mg SC DAILY 90 Days #27 ml 11/04/19 [Rx Confirmed 04/26/20] fluticasone propionate 50 mcg/actuation nasal spray,suspension 1 spray INTRANASAL QHS 02/02/20 [History Confirmed 04/26/20] Levocetirizine Dihydrochloride [Xyzal] 5 mg PO QHS 03/12/20 [History Confirmed 04/26/20] Levothyroxine Sodium [Synthroid] 100 mcg PO QHS 03/12/20 [History Confirmed 04/26/20] Montelukast Sodium 10 mg PO QHS 03/12/20 [History Confirmed 04/26/20] Omeprazole 20 mg PO QHS 03/12/20 [History Confirmed 04/26/20] Ascorbic Acid [Vitamin C] 500 mg PO BID #60 tab 03/13/20 [Rx Confirmed 04/26/20] Aspirin [Aspirin, Baby] 81 mg PO QHS #0 03/13/20 [Rx Confirmed 04/26/20] Ferrous Sulfate 325 mg PO DAILY #90 tablet. 03/13/20 [Rx Confirmed 04/26/20] Mecobalamin [B12 Active] 1,000 mcg PO DAILY #30 tab.chew 03/13/20 [Rx Confirmed 04/26/20] Metformin HCl 1,000 mg PO QHS #0 tab 03/13/20 [Rx Confirmed 04/26/20] PFSH Medical History Asthma (Acute) Breast lump (Acute) Chronic headaches (Acute) GERD (gastroesophageal reflux disease) (Acute) Gallstones (Acute) Goiter (Acute) H/O transfusion of whole blood (Acute) Heart murmur (Acute) High cholesterol (Acute) High triglycerides (Acute) Hypothyroidism (Acute) Polycystic ovary (Acute) Type 2 diabetes mellitus (Acute) UTI (urinary tract infection) (Acute) Vision problem (Acute) heart catheterization (Acute) HTN (hypertension) (Chronic) Surgical History H/O aortic valve replacement (Acute) H/O aortic valvuloplasty (Acute) H/O wisdom tooth extraction (Acute) H/O: (Acute) Hx of cholecystectomy (Acute) Hx of tonsillectomy (Acute) S/P aneurysm repair (Acute) Family History Grandmother Asthma Hypertension Grandfather Asthma Arthritis Cancer Diabetes Aunt Breast cancer Autoimmune disease Uncle Cancer Mother Diabetes Thyroid disorder Father Diabetes Sister Autoimmune disease Social History (Updated 05/03/20 @ 10:[address] Jasen Bazzi MD) Smoking Status: Never smoker second hand exposure: No alcohol intake: never substance use type: does not use HPI HPI Surgical H&P: Yes HPI: LISA GUTIERREZ, is a 34 F who presents to the office today for Evaluation of anemia and gastroesophageal reflux disease. Patient was admitted to the [facility] early in March. She presented with worsening of chronic shortness of breath she was noted to be significantly anemic with her hemoglobin is 7.4 and she received 2 units of blood. She has a chronic history of aortic stenosis status post surgery. Patient states that she has had problems with chronic reflux disease she has not noticed any black tarry stools. ROS General General: Yes fatigue; no weight change, appetite, colon cancer, breast cancer or weakness HEENT HEENT: No difficulty swallowing, eye injury, eye surgery, swollen glands or hoarseness Endo Endocrine: Yes thyroid disease and diabetes mellitus; no thyroid cancer, Hair loss, heat intolerance or cold intolerance Skin Skin: No rash or changing moles Breast Breast: No left breast lump, right breast lump, nipple discharge, breast pain, abnormal mammogram, abnormal US or breast enlargement Musc Musculoskeletal: No back problems, arthritis, rheumatoid arthritis, gout or joint pain Cardio Cardiovascular: Yes murmur, heart disease and high blood pressure; no pacemaker, atrial fibrillation, heart attack, heart stent, palpitations, shortness of breat with exertion or chest pain Psych Psychiatric: No depression, anxiety or hearing voices Resp Respiratory: Yes shortness of breath, No sleep apnea, No cough, No COPD, Yes asthma, No emphysema, No wheezing Gastro Gastrointestinal: No abdominal pain, No nausea or vomiting, Yes diarrhea, No constipation, No blood in stool, Yes acid reflux, No hemorrhoids, No ulcers, No gallbladder problem, No black,tarry stools [place] Hematologic: Yes blood thinners, No blood disorders, No bleeding, Yes anemia, No blood clots Neuro Neurologic: No system reviewed and no additional complaints, except as docu, No as per HPI, No abnormal walking, No abnormal hearing, No abnormal movements, No abnormal speech, No behavioral changes, No burning sensations, No confusion, No seizure-like activity, No unsteadiness, No dizziness, No localized weakness, No frequent falls, No headache(s), No lack of coordination, No loss of vision, No memory loss, No numbness, No other visual disturbances, No radiating pain, No restless legs, No sensory deficit, No fainting, No tingling, No tremor(s), No weakness, No other Exam Const General: no acute distress, well developed, well hydrated Orientation: oriented to person, oriented to place, oriented to time [facility] Head: normocephalic, atraumatic Ears: external ears normal Mouth: moist mucous membranes Eyes Sclera: sclerae normal Pupils: normal by confrontation Neck Neck: no lymphadenopathy noted Neck mass: No Thyroid: thyroid normal, symmetrical Chest Chest palpation & inspection: normal inspection of the chest Breast Palpation: No nipple discharge Resp Effort & Inspection: normal respiratory effort Auscultation: clear to auscultation bilaterally Percussion: percussion normal Cardio Rate: regular rate Rhythm: regular rhythm Heart Sounds: murmur GI Palpation: soft, no hepatosplenomegaly, no masses, nontender Rectal Exam: other Other: Rectal exam deferred. Extrem General: normal to inspection, no clubbing, cyanosis or edema Assessment & Plan Problems 1. Iron deficiency anemia due to chronic blood loss D50.0 2. Gastroesophageal reflux disease, esophagitis presence not specified K21.9 Plan I have discussed the above with the patient. I have offered the patient colonoscopy As well as an EGD for evaluation. I have explained the risks/benefits of the procedure and described the procedure. I have discussed the risks with the patient, including but not limited to: infection, bleeding, perforation of the GI tract requiring emergency surgery, inability to complete the procedure, injury to any internal organs, complications of anesthesia, etc. - the patient understands and agrees to proceed. I have answered all the patient's questions to the patient's satisfaction and the patient has no further questions. The patient has been given instructions for the colon cleansing preparation. Orders Orders: Colonoscopy 04/20/20 D64.9 EGD 04/20/20 D64.9, K21.9 Plan Detail Goals Decrease pain Decrease spasm Improve intersegmental motion Barriers Previous heart surgery Abnormal sleep position Coding Level of Care Code Off vis,est,level 3 Diagnoses Iron deficiency anemia due to chronic blood loss D50.0 ??Iron deficiency anemia type: chronic blood loss ??Anemia type: iron deficiency Gastroesophageal reflux disease, esophagitis presence not specified K21.9 ??Esophagitis presence: esophagitis presence not specified COVID (Procedure Consent) Procedure Criteria Procedure Criteria: Yes Elective The surgeon/proceduralist and patient have discussed in detail the risk of exposure to and/or potential harm posed by the COVID-19 virus with having a surgery/procedure at this time versus the risk of? delaying the surgery/procedure. It is not possible to know either the risk of delaying the surgery or procedure or chance of getting an infection with perfect accuracy, but a joint decision was made between the patient and the surgeon/proceduralist ?to proceed at this time with the scheduled surgery/procedure as indicated on the consent form. I have re-examined the patient. There are no clinical changes since date of exam.
[2020-05-17] MEDS: Lactated Ringers 1,000 ML 75 ML IV (07:26)
[2020-05-17 08:00] VITALS: BP 109/65; BP 128/94; PULSE 76; RESP 16; TEMP 36.2; O2SAT 100
--- NOTE | 2020-05-17 08:01 | OP.EGD_ITS ---
Patient Name: Kimberly Reis Procedure Date: 05/17/2020 7:06 AM Date of : 1985 Age: 34 Procedure: Upper GI endoscopy Indications: Suspected upper gastrointestinal bleeding in patient with unexplained iron deficiency anemia, Gastro-esophageal reflux disease Providers: Jasen Bazzi MD Referring MD: Jonas Sweet MD Medicines: See the Anesthesia note for documentation of the administered medications Patient Profile: This is a 34 year old female. Refer to note in patient chart for documentation of history and physical. Complications: No immediate complications. Procedure: Pre-Anesthesia Assessment: - Prior to the procedure, a History and Physical was performed, and patient medications and allergies were reviewed. The patient's tolerance of previous anesthesia was also reviewed. The risks and benefits of the procedure and the sedation options and risks were discussed with the patient. All questions were answered, and informed consent was obtained. Prior Anticoagulants: The patient has taken aspirin, last dose was 7 days prior to procedure. ASA Grade Assessment: III - A patient with severe systemic disease. After reviewing the risks and benefits, the patient was deemed in satisfactory condition to undergo the procedure. After obtaining informed consent, the endoscope was passed under direct vision. Throughout the procedure, the patient's blood pressure, pulse, and oxygen saturations were monitored continuously. The Endoscope was introduced through the mouth, and advanced to the second part of duodenum. The upper GI endoscopy was accomplished without difficulty. The patient tolerated the procedure well. Scope In: 7:40:31 AM Scope Out: 7:43:00 AM Total Procedure Duration Time 0 hours 2 minutes 29 seconds Findings: A small hiatal hernia was present. No biopsies or other specimens were collected for this exam. The entire examined stomach was normal. No biopsies or other specimens were collected for this exam. The examined duodenum was normal. No biopsies or other specimens were collected for this exam. No biopsies or other specimens were collected for this exam. Impression: - Small hiatal hernia. No specimens collected. - Normal stomach. No specimens collected. - Normal examined duodenum. No specimens collected. Recommendation: - Discharge patient to home. - Resume previous diet. - Continue present medications. - Repeat upper endoscopy PRN. - Return to primary care physician in 1 week. Procedure Code(s): --- Professional --- 25190, Esophagogastroduodenoscopy, flexible, transoral; diagnostic, including collection of specimen(s) by brushing or washing, when performed (separate procedure) Diagnosis Code(s): --- Professional --- K44.9, Diaphragmatic hernia without obstruction or gangrene D50.9, Iron deficiency anemia, unspecified K21.9, Gastro-esophageal reflux disease without esophagitis CPT copyright 2017 [employer]. All rights reserved. The codes documented in this report are preliminary and upon rock climbing team member review may be revised to meet current compliance requirements. MD Jasen Flores MD 05/17/2020 8:01:06 AM This report has been signed electronically. Number of Addenda: 0 Note Initiated On: 05/17/2020 7:06 AM
--- NOTE | 2020-05-17 08:01 | OP.CCLET_ITS ---
05/17/2020 Jonas Sweet MD [address] [place] [address] [place] [address] Re : Upper GI endoscopy procedure for Kimberly Reis Dear Dr. Sweet This procedure was performed on Sunday, May 17, 2020. My impressions and recommendations are as follows: Impressions : - Small hiatal hernia. No specimens collected. - Normal stomach. No specimens collected. - Normal examined duodenum. No specimens collected. Recommendations : - Discharge patient to home. - Resume previous diet. - Continue present medications. - Repeat upper endoscopy PRN. - Return to primary care physician in 1 week. My findings are described in the full procedure note, which is enclosed. If I can be of further assistance, please feel free to contact me at Doctor phone number(s): , Fax: [phone], Work: . Sincerely, MD Jasen Flores MD 05/17/2020 8:01:06 AM This report has been signed electronically.
--- NOTE | 2020-05-17 08:04 | OP.COLON_ITS ---
Patient Name: Kimberly Reis Procedure Date: 05/17/2020 7:43 AM Date of : 1985 Age: 34 Procedure: Colonoscopy Indications: Unexplained iron deficiency anemia Providers: Jasen Bazzi MD Referring MD: Jonas Sweet MD Medicines: See the Anesthesia note for documentation of the administered medications Patient Profile: This is a 34 year old female. Refer to note in patient chart for documentation of history and physical. Last Colonoscopy: none. The patient's first colonoscopy is today. Complications: No immediate complications. Procedure: Pre-Anesthesia Assessment: - Prior to the procedure, a History and Physical was performed, and patient medications and allergies were reviewed. The patient's tolerance of previous anesthesia was also reviewed. The risks and benefits of the procedure and the sedation options and risks were discussed with the patient. All questions were answered, and informed consent was obtained. Prior Anticoagulants: The patient has taken aspirin, last dose was 7 days prior to procedure. ASA Grade Assessment: III - A patient with severe systemic disease. After reviewing the risks and benefits, the patient was deemed in satisfactory condition to undergo the procedure. After I obtained informed consent, the scope was passed under direct vision. Throughout the procedure, the patient's blood pressure, pulse, and oxygen saturations were monitored continuously. The colonoscope was introduced through the anus and advanced to the cecum, identified by appendiceal orifice and ileocecal valve. The colonoscopy was performed without difficulty. The patient tolerated the procedure well. The quality of the bowel preparation was good. Scope In: 7:44:53 AM Scope Withdrawal Time 0 hours 6 minutes 56 seconds Scope Out: 7:54:47 AM Total Procedure Duration Time 0 hours 9 minutes 54 seconds Findings: The entire examined colon appeared normal. Non-bleeding internal hemorrhoids were found during retroflexion. The hemorrhoids were mild and small. No biopsies or other specimens were collected for this exam. The exam was otherwise without abnormality. Impression: - The entire examined colon is normal. - Non-bleeding internal hemorrhoids. No specimens collected. - The examination was otherwise normal. Recommendation: - Discharge patient to home. - Resume previous diet. - Continue present medications. - Repeat colonoscopy in 15 years for screening purposes. - Return to primary care physician in 1 week. Procedure Code(s): --- Professional --- 21890, Colonoscopy, flexible; diagnostic, including collection of specimen(s) by brushing or washing, when performed (separate procedure) Diagnosis Code(s): --- Professional --- K64.8, Other hemorrhoids D50.9, Iron deficiency anemia, unspecified CPT copyright 2017 [employer]. All rights reserved. The codes documented in this report are preliminary and upon zoning technician review may be revised to meet current compliance requirements. MD Jasen Flores MD 05/17/2020 8:03:45 AM This report has been signed electronically. Number of Addenda: 0 Note Initiated On: 05/17/2020 7:43 AM
--- NOTE | 2020-05-17 08:04 | OP.CCLET_ITS ---
05/17/2020 Jonas Sweet MD [address] [place] [address] [place] [address] Re : Colonoscopy procedure for Kimberly Reis Dear Dr. Sweet This procedure was performed on Sunday, May 17, 2020. My impressions and recommendations are as follows: Impressions : - The entire examined colon is normal. - Non-bleeding internal hemorrhoids. No specimens collected. - The examination was otherwise normal. Recommendations : - Discharge patient to home. - Resume previous diet. - Continue present medications. - Repeat colonoscopy in 15 years for screening purposes. - Return to primary care physician in 1 week. My findings are described in the full procedure note, which is enclosed. If I can be of further assistance, please feel free to contact me at Doctor phone number(s): , Fax: [phone], Work: . Sincerely, MD Jasen Flores MD 05/17/2020 8:03:45 AM This report has been signed electronically.
[2020-05-17 08:05] VITALS: BP 100/49; BP 109/65; PULSE 76; RESP 17; O2SAT 100
[2020-05-17 08:10] VITALS: BP 103/58; BP 109/65; PULSE 75; RESP 16; O2SAT 100
[2020-05-17 08:15] VITALS: BP 104/54; BP 109/65; PULSE 74; RESP 16; TEMP 36.3; O2SAT 100
[2020-05-17 08:25] LABS: Bedside Glucose 206 mg/dL (70-110)
[2020-05-17 09:00] VITALS: BP 109/65
== END 2020-05-17 09:12 | disposition home or self-care (01) ==
LOC: EN 06:31 → AC 06:33
PROVIDERS: Anesthesiology; PCP Internal Medicine; Referring Provider Internal Medicine; Visit Provider Surgery
PROC: 0DJD8ZZ Inspection of Lower Intestinal Tract, Via Natural or Artificial Opening Endoscopic (ICD-10-PCS; CPT 45378; principal; 2020-05-17 07:25)
DX: D50.0 Iron deficiency anemia secondary to blood loss (chronic) (principal); K21.9 Gastro-esophageal reflux disease without esophagitis; K44.9 Diaphragmatic hernia without obstruction or gangrene; K64.8 Other hemorrhoids; K52.9 Noninfective gastroenteritis and colitis, unspecified; I10 Essential (primary) hypertension; I35.0 Nonrheumatic aortic (valve) stenosis; E11.9 Type 2 diabetes mellitus without complications; E03.9 Hypothyroidism, unspecified; E78.1 Pure hyperglyceridemia; Z95.4 Presence of other heart-valve replacement; Z79.82 Long term (current) use of aspirin; Z79.899 Other long term (current) drug therapy; Z20.828 Contact with and (suspected) exposure to other viral communicable diseases
CPT/HCPCS: 43235; 45378; 82962; 87635; 94799; J7120; A4216; J2405; U0003

== ENCOUNTER → 2020-05-23 06:01 | Outpatient (CLI) | payer OTHER, SELFPAY ==
[2020-05-17 07:12] VITALS: BMI 32.3
[2020-05-23 07:36] LABS: Platelet Count 272 K/mm3 (150-450); RET-HE 37.3 pg (30-35); Reticulocyte Count 7.31 % (0.5-1.5)
[2020-05-23 08:20] LABS: Ferritin 541 ng/mL (8-252); Iron 104 ug/dL (50-170); Iron Binding Capacity,Total 276 ug/dL (250-450)
[2020-05-23 11:38] LABS: Partial Thromboplast Time 29.7 Seconds (24.1-36.2); Prothrombin Time (Protime)PT. 13.2 SECONDS (11.7-14.9)
[2020-05-24 07:00] LABS: Haptoglobin < 10 mg/dL (33-278)
[2020-05-25 16:08] LABS: Hemoglobin Fraction A 97.6 % (96.4-98.8); Hemoglobin Fraction A2 2.4 % (1.8-3.2); Hemoglobin Fraction C 0 % (0.0); Hemoglobin Fraction F 0 % (0.0-2.0); Hemoglobin Fraction S 0 % (0.0); Hemoglobin Solubility,Panel Negative (Negative); Red Blood Cell Count Test/G6PD 3.46 x10E6/uL (3.77-5.28)
[2020-05-25 22:04] LABS: G6PD Quant Test 395 (127-427)
== END ==
PROVIDERS: PCP Internal Medicine; Referring Provider Internal Medicine Hematology & Oncology; Visit Provider Internal Medicine Hematology & Oncology
DX: D59.4 Other nonautoimmune hemolytic anemias (principal)
CPT/HCPCS: 36415; 82728; 82955; 83010; 83021; 83540; 83550; 85045; 85610; 85660; 85730

== ENCOUNTER → 2020-05-25 09:52 | Outpatient (CLI) | payer OTHER, SELFPAY ==
[2020-05-17 07:12] VITALS: BMI 32.3
--- NOTE | 2020-05-25 09:54 | US_ITS ---
STUDY: ABDOMINAL ULTRASOUND - RIGHT UPPER QUADRANT REASON FOR VISIT: Female, 34 years old HEMOLYTIC ANEMIAS HCC TECHNIQUE: Ultrasound evaluation of the right upper quadrant was performed with real-time and static petit-scale imaging. TECHNICAL QUALITY: Adequate. COMPARISON: None. FINDINGS: Liver: The liver is enlarged and measures 22.2 cm. There is increased echogenicity consistent with fatty infiltration. The bile ducts are within normal limits. There is hepatic color flow. The direction of portal flow is hepatopetal. There is no demonstrated mass lesion. Gallbladder: The patient is status post cholecystectomy. Common Bile Duct (C.B.D.): The common bile duct measures 4.4 mm. Pancreas: Normal size of the head, body and tail of the pancreas. There is normal echogenicity of the pancreas. There is no demonstrated pancreatic mass or cyst. Right Kidney: Normal size of the right kidney. The right kidney measures 11.5 cm x 5.8 cm x 5.6 cm. Normal renal cortex. The right cortex measures 1.7 cm. There is no demonstrated renal mass or cyst. There is no right hydronephrosis. IMPRESSION: Hepatomegaly. Diffuse fatty infiltration of the liver. Electronically Signed: Rhys Chavez, at 12:35 EDT , Service support , STUDY: ABDOMINAL ULTRASOUND - LEFT UPPER QUADRANT REASON FOR EXAM: Female, 34 years old. HEMOLYTIC ANEMIAS HCC TECHNIQUE: Transabdominal ultrasound was performed with real-time and static petit scale imaging. TECHNICAL QUALITY: Adequate. COMPARISON: None. FINDINGS: Spleen: There is splenomegaly. The spleen measures 4.6 cm x 7 cm x 5.7 cm. Left Kidney: Normal size of the left kidney. The left kidney measures 10.8 cm x 5.3 cm x 5.0 cm. Normal renal cortex. The left cortex measures 1.3 cm. There is no demonstrated renal mass or cyst. There is no left hydronephrosis. US/Abdomen Limited IMPRESSION: Splenomegaly. Electronically Signed: Rhys Chavez, at 12:35 EDT , Service support ,
== END ==
PROVIDERS: PCP Internal Medicine; Referring Provider Internal Medicine Hematology & Oncology; Visit Provider Internal Medicine Hematology & Oncology
DX: D59.4 Other nonautoimmune hemolytic anemias (principal)
CPT/HCPCS: 76705

== ENCOUNTER → 2020-05-30 10:33 | Outpatient (CLI) | payer OTHER, SELFPAY ==
[2020-05-17 07:12] VITALS: BMI 32.3
[2020-05-30 12:04] LABS: LDH 1320 U/L (84-246)
[2020-05-31 05:36] LABS: Haptoglobin < 10 mg/dL (33-278)
== END ==
PROVIDERS: PCP Internal Medicine; Referring Provider Internal Medicine Hematology & Oncology; Visit Provider Internal Medicine Hematology & Oncology
DX: D50.0 Iron deficiency anemia secondary to blood loss (chronic) (principal)
CPT/HCPCS: 36415; 83010; 83615

== ENCOUNTER → 2020-06-08 07:58 | Outpatient (CLI) | payer OTHER, SELFPAY ==
[2020-05-17 07:12] VITALS: BMI 32.3
[2020-06-06 09:37] VITALS: BMI 32.3
[2020-06-08] VITALS (9 sets, daily range): BP systolic 97–135; BP diastolic 42–71; PULSE 70–81; RESP 16–19; TEMP 37.1; O2SAT 95–100; BMI 33.2
--- NOTE | 2020-06-08 | BMB_PTH ---
PATIENT: LISA GUTIERREZ LOC: CT U#:[id number] AGE/SX: 39/F ROOM: RE06/08/[address]: Dr. Scotty Garcia DO : 1985 BED: DIS: SPEC #: [id number] RECD: 06/08/20 10:17 STATUS: DOE REKwaku #: [id number] DIPTI: 06/08/20 00:[address]: Scotty Garcia DEPT: BONE MARROW RECD BY: Roslyn White ENTERED: 06/08/20 10:18 SP TYPE: BMB GÓMEZ DR: Dr. Jonas Sweet MD Tissues: A - Bone marrow, NOS B - Bone marrow, NOS C - Bone marrow, NOS Procedures: Decalcification bone/plaque Bone Marrow Aspiration Bone Marrow Core Biopsy Iron Stain Bone Marrow HEADER OPERATION: Bone marrow biopsy and aspiration PRE-OP DIAGNOSIS: Nonimmune hemolytic anemia and splenomegaly TISSUE SUBMITTED: A - Core, B - Clot, C - Smears, and send outs (flow, cytogenetics) BONE MARROW DIAGNOSIS Bone marrow core, clot and aspirate smears: Normocellular marrow, negative for involvement by malignancy, lymphoma or granuloma. Iron - 2+, atypical or ring sideroblasts are not seen. Flow cytometry study and cytogenetic studies are pending at this time and will be reported as an addendum. See comment. SJ:tomer 06/09/20 COMMENT Bone marrow core biopsy entirely consists of blood clots containing hematopoietic elements. No bone core is identified in the specimen. Clinical correlation and appropriate follow up are necessary. Case has been reviewed in consultation with Dr. Garner who concurs with the above diagnosis. IDC:AM BONE MARROW STUDY Slides are reviewed. CBC DATE: 06/08/20 WBC 5.7; RBC 3.35; HGB 11.1; HCT 33.2; MCV 99.1; RDW 15.2; PLTS 232,000 SEGS 54.6% LYMPHS 29.8%; MONOS 11.1%; EOS 2.4%; BASOS 0.9% PERIPHERAL SMEAR: Submitted. RBC: Mild macrocytic anemia. WBC: Unremarkable. The WBC count is compatible to as reported above. PLTS: Adequate. BONE MARROW ASPIRATE DIFFERENTIAL: 200 cell count. Blasts % (normal 0-2): 1 Promyelocytes % (normal 1-5): 1 Myelocytes and metamyelocytes % (normal 17-41): 20 Bands and Segs % (normal 15-32): 42 Eos % (normal 1-6): 3 Basos % (normal 0-1): 0 Monocytes % (normal 0-4): 2 Erythroid Precursors % (normal 17-35): 21 Lymphocytes % (normal 7-13): 10 Plasma Cells % (normal 0-2): 0 ASPIRATE FINDINGS: Site: Not specified Aspicular, Cellular M/E ratio: 3.1 (Normal 1.5-4.0) Megakaryocytes: Present and normal morphology. Erythropoiesis: Normoblastic. Granulopoiesis: Progressive and unremarkable. Comment: Significant dysplastic changes are not seen. CORE BIOPSY FINDINGS: Site: Not specified Adequacy: Insufficient Comment: The specimen consists of blood clot mixed with hematopoietic elements. ASPIRATE CLOT FINDINGS: Site: Not specified Marrow particles: Numerous Cellularity: 50% M/E ratio: Within normal limits. Megakaryocytes: Present and adequate in number. Granulomas: Absent. Lymphoid aggregates: Absent. Atypical infiltrates: Absent. SPECIAL STAINS WITH MATCHED CONTROLS: Iron: 2+, atypical or ring sideroblasts are not seen. Reticulin: No significant increase of reticulin fibers is noted. PAS: Highlights myeloid cells and megakaryocytes. BONE MARROW GROSS A - Received is a container labeled with the patient's name and designated bone marrow. The specimen consists of multiple blood clots mixed with a possible fragment of bone measuring in aggregate 1.5 x 1.5 x 0.1 cm. The specimen is totally submitted in two cassettes as follows: 1 - blood clots, 2??possible fragment of bone. B - Received labeled with the patient's name and designated bone marrow is a specimen that consists of approximately 7 cc of bloody fluid that on filtration yields multiple minute fragments of blood clots measuring in aggregate 3 x 2.5 x 0.3 cm. The specimen is totally submitted in one cassette. C - Also received are 18 unstained and 1 peripheral stained slides. The unstained slides are submitted for appropriate staining. Also received are two green top tubes which are sent to our reference lab for flow and cytogenetics. / SJ:rg 06/08/20 TC:5 CPT: 11404, 67343, 78025 x2, 04301 x3,69376 ADDENDUM ADDENDUM ADDENDUM ADDENDUM ADDENDUM ADDENDUM ADDENDUM 06/14/2020 09:42 ADDENDUM 06/14/2020 09:42 ADDENDUM 06/15/2020 11:17 ADDENDUM 06/14/2020 09:42 ADDENDUM 06/14/2020 09:42 ADDENDUM 06/14/2020 09:42 FLOW CYTOMETRY ANALYSIS FOR LYMPHOPROLIFERATIVE DISORDERS FROM [facility] INTERPRETATION: There is no evidence of a lymphoproliferative disorder or plasma cell neoplasm. Please see complete report in e-chart or EMR for further details CYTOGENETICS REPORT FROM [facility] INTERPRETATION: A normal female chromosome complement was observed in twenty metaphases analyzed. Karyotype: 46,XX[20] Please see complete report in e-chart or EMR for further details
[2020-06-08 08:11] LABS: Absolute Lymphocyte Count 1.71 X10^3/uL (0.83-4.51); Absolute Neutrophil Count 3.1 X10^3/uL (2.0-7.7); Basophil# 0.05 X10^3/uL; Basophil% 0.9 % (0-1); Eosinophil# 0.14 X10^3/uL; Eosinophils% 2.4 % (0-5); Hematocrit 33.2 % (37-47); Hemoglobin 11.1 g/dL (12.0-15.0); Lymphocyte # 1.71 X10^3/ul (4.0); Lymphocyte % 29.8 % (19-41); Mean Corp Hgb Conc 33.4 g/dL (32-36); Mean Corpuscular Hgb 33.1 pg (27.0-32.0); Mean Corpuscular Volume 99.1 fL (81-99); Monocyte# 0.64 X10^3/uL; Monocyte% 11.1 % (0-10); NRBC Flagged by Analyzer 0 % (0-5); Neutrophil # 3.13 X10^3/uL (2.7-7.7); Neutrophil % 54.6 % (47-70); Platelet Count 232 K/mm3 (150-450); RBC Distribution Width CV 15.2 % (11.6-14.6); RBC Distribution Width SD 53.3 fl (35.1-43.9); Red Blood Count 3.35 M/mm3 (4.2-5.4); White Blood Count 5.7 K/mm3 (4.4-11.0)
--- NOTE | 2020-06-08 09:00 | CT_ITS ---
PROCEDURE: CT GUIDED BONE marrow biopsy of the posterior right iliac bone. DATE: 06/08/2020. INDICATION: Female, 34 years old. Anemia. PHYSICIAN: Rhys Chavez M.D. RADIATION DOSAGE (If Supplied By Facility): CTDIvol = ( 15 ) mGy, DLP = ( 257.04 ) mGycm. Individualized dose optimization techniques were utilized. PROCEDURE: The risks, benefits, and alternatives to the procedure were explained to the patient. The specific risk of hemorrhage requiring further treatment or intervention was detailed and accepted. Follow-up instructions were discussed with the patient as well. Written informed consent was obtained. The patient was brought into the CT suite and placed in the prone position. . An appropriate entry site was identified. The overlying skin was prepped and draped in the usual sterile fashion. 1% lidocaine was administered subcutaneously for local anesthesia. Conscious sedation was performed. The patient received 2 mg of VERSED and 100 mcg of FENTANYL intravenously. The patient was independently monitored by the department nurse. Conscious sedation was started at 9:09 AM and terminated at 9:30. Under CT guidance, a bone marrow biopsy and bone marrow aspirate were performed utilizing an 11-gauge bone marrow biopsy kit. The specimens were then placed in the appropriate fluid and transported to the laboratory for analysis. Hemostasis was obtained. The patient tolerated the procedure well without immediate complications. CT/Biopsy/Inj or Needle Placement IMPRESSION: Successful CT guided bone marrow biopsy and bone marrow aspiration of the posterior aspect of the right iliac bone, as described above. Conscious sedation protocol was followed. The patient tolerated the procedure well. Electronically Signed: Rhys Chavez, at 10:00 EDT , Service support ,
[2020-06-08] MEDS: Midazolam 2 MG/2 ML Syringe IV (09:09)
[2020-06-08] MEDS: fentaNYL 100 MCG/2 ML Ampul IV ×2 (09:09→09:29)
== END ==
PROVIDERS: PCP Internal Medicine; Referring Provider Internal Medicine Hematology & Oncology; Visit Provider Internal Medicine Hematology & Oncology
DX: D53.9 Nutritional anemia, unspecified (principal); D59.4 Other nonautoimmune hemolytic anemias; R16.1 Splenomegaly, not elsewhere classified
CPT/HCPCS: 38221; 36415; 77012; 85025; 88305; 88311; 88313; 99155; 99156; 99157; J7040; A4216

== ENCOUNTER → 2020-06-28 10:54 | Outpatient (CLI) | payer OTHER, SELFPAY ==
[2020-06-08 08:49] VITALS: BMI 33.2
[2020-06-28 11:18] LABS: International Normalized Ratio 1.8; Prothrombin Time (Protime)PT. 20.2 SECONDS (11.7-14.9)
== END ==
PROVIDERS: Internal Medicine Cardiovascular Disease; PCP Internal Medicine; Visit Provider Internal Medicine Hematology & Oncology
DX: D50.0 Iron deficiency anemia secondary to blood loss (chronic) (principal); Z95.4 Presence of other heart-valve replacement
CPT/HCPCS: 36415; 85610

== ENCOUNTER 2020-07-14 10:54 | Outpatient (RCR) | payer OTHER, SELFPAY ==
[2020-06-08 08:49] VITALS: BMI 33.2
[2020-07-03 10:22] LABS: International Normalized Ratio 2.3; Prothrombin Time (Protime)PT. 24.4 SECONDS (11.7-14.9)
[2020-07-06 10:33] LABS: International Normalized Ratio 2.2; Prothrombin Time (Protime)PT. 23.6 SECONDS (11.7-14.9)
[2020-07-10 11:17] LABS: International Normalized Ratio 2.4
[2020-07-14 11:36] LABS: International Normalized Ratio 2.7; Prothrombin Time (Protime)PT. 28.5 SECONDS (11.7-14.9)
== END 2020-07-14 18:00 | disposition home or self-care (01) ==
LOC: LAB 10:54
PROVIDERS: PCP Internal Medicine; Referring Provider Internal Medicine Cardiovascular Disease; Visit Provider Internal Medicine Cardiovascular Disease
DX: Z95.4 Presence of other heart-valve replacement (principal)
CPT/HCPCS: 36415; 85610

== ENCOUNTER 2020-08-14 07:37 | Outpatient (RCR) | payer OTHER, SELFPAY ==
[2020-07-07 10:11] VITALS: BMI 32.2
[2020-07-28 11:29] LABS: International Normalized Ratio 2.5; Prothrombin Time (Protime)PT. 26.5 SECONDS (11.7-14.9)
[2020-08-14 09:01] LABS: International Normalized Ratio 2.8; Prothrombin Time (Protime)PT. 28.7 SECONDS (11.7-14.9)
== END 2020-08-14 18:00 | disposition home or self-care (01) ==
LOC: LAB 07:37
PROVIDERS: PCP Internal Medicine; Referring Provider Internal Medicine Cardiovascular Disease; Visit Provider Internal Medicine Cardiovascular Disease
DX: Z95.4 Presence of other heart-valve replacement (principal)
CPT/HCPCS: 36415; 85610

== ENCOUNTER 2020-09-11 09:25 | Outpatient (RCR) | payer OTHER, SELFPAY ==
[2020-07-07 10:11] VITALS: BMI 32.2
[2020-08-28 11:47] LABS: International Normalized Ratio 1.9; Prothrombin Time (Protime)PT. 21.3 SECONDS (11.7-14.9)
[2020-09-11 10:23] LABS: International Normalized Ratio 1.7; Prothrombin Time (Protime)PT. 19.7 SECONDS (11.7-14.9)
== END 2020-09-11 18:00 | disposition home or self-care (01) ==
LOC: LAB 09:25
PROVIDERS: PCP Internal Medicine; Referring Provider Internal Medicine Cardiovascular Disease; Visit Provider Internal Medicine Cardiovascular Disease
DX: Z95.4 Presence of other heart-valve replacement (principal)
CPT/HCPCS: 36415; 85610

== ENCOUNTER 2020-10-06 09:40 | Outpatient (RCR) | payer OTHER, SELFPAY ==
[2020-07-07 10:11] VITALS: BMI 32.2
[2020-09-18 09:36] VITALS: BMI 33.0
[2020-09-18 12:50] LABS: International Normalized Ratio 1.9; Prothrombin Time (Protime)PT. 21.4 SECONDS (11.7-14.9)
[2020-09-18 13:20] LABS: ALB/GLOB Ratio 0.8 RATIO (0.9-2.4); AST(SGOT) 11 U/L (15-37); Alanine Aminotransfer ALT/SGPT 27 U/L (13-56); Albumin, Serum 3.6 g/dL (3.2-5.0); Alkaline Phosphatase 63 U/L (45-117); Anion Gap 7 (5-15); BUN 8 mg/dL (7-18); BUN/Creat Ratio 12.3 RATIO (10-20); Chloride 105 mmol/L (98-107); Creatinine, Serum 0.65 mg/dL (0.55-1.02); EST Glomerular Filtration Rate 109 mL/min (>60); Est Glom Filt Rate - Afr Amer 132 mL/min (>60); Globulin 4.3 g/dL (2.2-4.2); Glucose 153 mg/dL (74-106); Potassium 3.9 mmol/L (3.5-5.1); Protein, Total 7.9 g/dL (6.4-8.2); Sodium Level 138 mmol/L (136-145); Thyroid Stim Hormone (TSH) 1.07 uIU/mL (0.358-3.74)
[2020-09-22 10:08] LABS: International Normalized Ratio 1.9; Prothrombin Time (Protime)PT. 21.6 SECONDS (11.7-14.9)
[2020-10-06 10:31] LABS: International Normalized Ratio 2.1; Prothrombin Time (Protime)PT. 23.3 SECONDS (11.7-14.9)
== END 2020-10-06 18:00 | disposition home or self-care (01) ==
LOC: LAB 09:40
PROVIDERS: PCP Internal Medicine; Referring Provider Internal Medicine Cardiovascular Disease; Visit Provider Internal Medicine Cardiovascular Disease
DX: E03.9 Hypothyroidism, unspecified (principal); Z95.4 Presence of other heart-valve replacement; I10 Essential (primary) hypertension; E11.9 Type 2 diabetes mellitus without complications
CPT/HCPCS: 36415; 80053; 84443; 85610

== ENCOUNTER 2020-11-07 09:57 | Outpatient (RCR) | payer OTHER, SELFPAY ==
[2020-09-18 09:36] VITALS: BMI 33.0
[2020-10-20 11:19] LABS: Prothrombin Time (Protime)PT. 13.1 SECONDS (11.7-14.9)
[2020-10-23 11:01] LABS: International Normalized Ratio 1.3; Prothrombin Time (Protime)PT. 15.7 SECONDS (11.7-14.9)
[2020-10-27 08:57] LABS: Prothrombin Time (Protime)PT. 21.9 SECONDS (11.7-14.9)
[2020-11-03 11:41] LABS: International Normalized Ratio 2.9; Prothrombin Time (Protime)PT. 30.3 SECONDS (11.7-14.9)
[2020-11-07 10:54] LABS: International Normalized Ratio 2.2; Prothrombin Time (Protime)PT. 24.3 SECONDS (11.7-14.9)
== END 2020-11-07 18:00 | disposition home or self-care (01) ==
LOC: LAB 09:57
PROVIDERS: PCP Internal Medicine; Referring Provider Internal Medicine Cardiovascular Disease; Visit Provider Internal Medicine Cardiovascular Disease
DX: Z95.4 Presence of other heart-valve replacement (principal)
CPT/HCPCS: 36415; 85610

== ENCOUNTER 2020-12-12 10:09 | Outpatient (RCR) | payer OTHER, SELFPAY ==
[2020-09-18 09:36] VITALS: BMI 33.0
[2020-11-14 11:14] LABS: International Normalized Ratio 2.3; Prothrombin Time (Protime)PT. 24.9 SECONDS (11.7-14.9)
[2020-11-21 10:29] LABS: International Normalized Ratio 1.6; Prothrombin Time (Protime)PT. 18.1 SECONDS (11.7-14.9)
[2020-11-28 09:42] LABS: International Normalized Ratio 1.7; Prothrombin Time (Protime)PT. 19.8 SECONDS (11.7-14.9)
[2020-12-12 10:42] LABS: International Normalized Ratio 1.5; Prothrombin Time (Protime)PT. 17.8 SECONDS (11.7-14.9)
== END 2020-12-12 18:00 | disposition home or self-care (01) ==
LOC: LAB 10:09
PROVIDERS: PCP Internal Medicine; Referring Provider Internal Medicine Cardiovascular Disease; Visit Provider Internal Medicine Cardiovascular Disease
DX: Z95.4 Presence of other heart-valve replacement (principal)
CPT/HCPCS: 36415; 85610

== ENCOUNTER 2021-01-02 16:33 | Inpatient (IN) | payer OTHER, SELFPAY ==
[2021-01-02 16:35] VITALS: BP 164/88; PULSE 80; RESP 18; TEMP 36.8; O2SAT 100; BMI 36.1
--- NOTE | 2021-01-02 16:48 | CT_ITS ---
STUDY: CT ABDOMEN AND PELVIS WITHOUT CONTRAST REASON FOR EXAM: Female, 35 years old. Pain RADIATION DOSAGE (If Supplied By Facility): CTDIvol = ( 18.50 ) mGy, DLP = ( 919.95 ) mGycm TECHNIQUE: Transaxial images were obtained from the dome of the diaphragm to the symphysis pubis without oral contrast, and without intravenous contrast. Sagittal and coronal images were reconstructed. Individualized dose optimization techniques were used for this CT. COMPARISON: None. FINDINGS: The visualized lung bases are unremarkable. The visualized portions of the heart are within normal limits. Fatty enlarged liver. Nonvisualization of the gallbladder. No significant dilatation of the extrahepatic biliary system. Normal spleen. Normal pancreas. Normal bilateral adrenal glands. Normal right kidney. Nonobstructive punctate calculi in the left kidney. Normal visualized stomach. Normal small intestine. Normal colon. The appendix is visualized and appears normal. Normal abdominal aorta. Normal inferior vena cava. Normal retroperitoneum. Normal urinary bladder. Normal abdominal wall. Normal osseous structures. CT/Abdomen/Pelvis without Cont IMPRESSION: Enlarged fatty liver. Nonobstructing left renal punctate calculi. Electronically Signed: Jean-Pierre Cobb DO at 17:32 EDT Tel [phone], Service support ,
--- NOTE | 2021-01-02 16:50 | ED.VISSUMM ---
- ER Visit Summary Date of Service: 01/02/21 Chief Complaint: Right flank pain History of Present Illness: The patient is a 35 F 3 of aortic valve replacement x3, type 2 diabetes on Coumadin for mechanical valve hypertension and recent hysterectomy in October. Patient states around 330 this afternoon had sudden onset of right flank pain. Radiates to her lower back. Associated nausea no vomiting. No diarrhea or fever no dysuria or hematuria. No history of kidney stone. No history of trauma. Physical Examination: 35-year-old female no acute distress vital signs stable afebrile. Pulse ox 100% on room air no signs of hypoxia. H EENT exam unremarkable. Neck nontender no lymphadenopathy. Lungs clear to auscultation bilaterally. Heart regular rhythm rate of 80 mechanical valve click. Abdomen soft nontender normal bowel sounds no peritoneal signs right upper right lower quadrant unremarkable. Extremities moves all 4. Calves nontender no edema. Back no reproducible tenderness. She complains of right CVA and flank pain but is not reproducibly tender. Neurologically she is awake alert with no focal motor deficits. Test Results: CBC normal white count 8. Hemoglobin 13. No bands chemistries unremarkable potassium 3.3 normal creatinine and gap. Liver enzymes normal. Patient is on Coumadin her INR is subtherapeutic at 1.3. UA unremarkable 2+ bacteria negative whites or red cells or nitrates on the micro. CAT scan read by the radiologist reviewed by me showed a left renal calculi but no acute abnormality. Enlarged fatty liver. No specific cause for her discomfort. Repeat exam patient doing well at 6:54 PM. Abdomen is benign. She and I discussed her test results. Patient I discussed doing further imaging and we decided on the CT with IV contrast. Radiologist's reading is a possible concern for a right renal infarction which would clinically correlate with her symptoms and also her other past medical history. Emergency Department Course and Treatment: Patient treated with IV morphine and Zofran. CAT scan and labs are pending. Treatment Plan: I spoke with our hospitalist and also [place] [employer] guide director business integration. I have a call out to the [facility] [place] to speak with their [place] guide since the patient has any specific type of aortic valve. She will be started on heparin bolus and drip. And after I talk with the [facility] [place] the decision will be made whether she can be treated here or has to be sent up there for further evaluation or possible intervention. I spoke with cardiology at the [facility] [place] and typically they anticoagulate these patients and do further evaluation they did not feel that she needed transfer nor any emergent intervention. Disposition: Impression: Acute right flank pain secondary to right renal infarction History of aortic valve replacement with mechanical valve on Coumadin Status post hysterectomy History of diabetes This note was generated with [employer] dictation software. It may contain incorrect words, spelling, and punctuation that were not noted in review of the chart prior to signing ED Disposition - Plan for ED Patient: Disposition: Home or Assisted Living Instructions: ED Flank Pain, Uncertain Cause Referrals: Jonas Sweet MD [Primary Care Provider] - As soon as possible Additional Instructions: Specific cause for your pain today. Tylenol for pain. Follow-up with your primary care physician if not improving. Return emergency department if you are feeling worse.
[2021-01-02] MEDS: Ondansetron 4 MG/2 ML Vial IV (16:59)
[2021-01-02] MEDS: morphine 8 MG/ML Syringe IV (16:59)
[2021-01-02 17:08] LABS: Absolute Lymphocyte Count 1.69 X10^3/uL (0.83-4.51); Absolute Neutrophil Count 5.5 X10^3/uL (2.0-7.7); Basophil# 0.05 X10^3/uL; Basophil% 0.6 % (0-1); Eosinophil# 0.25 X10^3/uL; Eosinophils% 3.1 % (0-5); Hematocrit 38.3 % (37-47); Hemoglobin 13.5 g/dL (12.0-15.0); Lymphocyte # 1.69 X10^3/ul (0.83-4.51); Lymphocyte % 21.2 % (19-41); Mean Corp Hgb Conc 35.2 g/dL (32-36); Mean Corpuscular Hgb 32.1 pg (27.0-32.0); Mean Corpuscular Volume 91.2 fL (81-99); Mean Platelet Vol. 10.3 fl (6.2-12.0); Monocyte# 0.44 X10^3/uL; Monocyte% 5.5 % (0-10); NRBC Flagged by Analyzer 0 % (0-5); Neutrophil # 5.47 X10^3/uL (2.7-7.7); Neutrophil % 68.8 % (47-70); Platelet Count 240 K/mm3 (150-450); RBC Distribution Width CV 12.2 % (11.6-14.6); RBC Distribution Width SD 40.6 fl (35.1-43.9)
[2021-01-02 17:21] LABS: International Normalized Ratio 1.3
[2021-01-02 17:24] LABS: ALB/GLOB Ratio 0.8 RATIO (0.9-2.4); AST(SGOT) 33 U/L (15-37); Alanine Aminotransfer ALT/SGPT 49 U/L (13-56); Albumin, Serum 3.5 g/dL (3.2-5.0); Alkaline Phosphatase 58 U/L (45-117); Anion Gap 11 (5-15); BUN 16 mg/dL (7-18); BUN/Creat Ratio 13.6 RATIO (10-20); Calcium,Total 8.8 mg/dL (8.5-10.1); Chloride 100 mmol/L (98-107); Creatinine, Serum 1.18 mg/dL (0.55-1.02); EST Glomerular Filtration Rate 55 mL/min (>60); Est Glom Filt Rate - Afr Amer 67 mL/min (>60); Estimated Creatinine Clearance 64.09 ml/min; Globulin 4.3 g/dL (2.2-4.2); Glucose 259 mg/dL (74-106); Potassium 3.3 mmol/L (3.5-5.1); Protein, Total 7.8 g/dL (6.4-8.2); Sodium Level 136 mmol/L (136-145)
[2021-01-02 18:00] LABS: Mucous, Urine 0 SEEN /hpf (<or=2+); Squamous Epithelial Cells - UA 0 SEEN /hpf (5-10); White Blood Cells 0 SEEN /hpf (0-5)
[2021-01-02 18:01] LABS: Color, Urine Yellow (Yellow); Glucose, Dipstick 50 mg/dl (Normal); Ketone-Dipstick 15 mg/dl (Negative); Leukocyte Esterase-Dipstick Negative /ul (Negative); Nitrite-Dipstick Negative (Negative); Occult Blood-Urine 50 /ul (Negative); Protein-Dipstick 100 mg/dl (Negative); Specific Gravity, Urine 1.015 (1.002-1.030); Urine Bilirubin Dipstick Negative (Negative); Urine Clarity Clear (Clear); Urine Urobilinogen Normal (Normal)
[2021-01-02 18:13] LABS: Bacteria 2+ /hpf (None Seen); Red Blood Cells-Urine 0-5 SEEN /hpf (0-5)
[2021-01-02 18:14] LABS: Hyaline Cast 0-5 SEEN /lpf (0-5)
[2021-01-02 18:36] VITALS: BP 157/93; PULSE 85; RESP 20; O2SAT 98
--- NOTE | 2021-01-02 19:14 | ED.DEP ---
ED Disposition - Plan for ED Patient: Disposition: Home or Assisted Living Instructions: ED Flank Pain, Uncertain Cause Referrals: Jonas Sweet MD [Primary Care Provider] - As soon as possible Additional Instructions: Specific cause for your pain today. Tylenol for pain. Follow-up with your primary care physician if not improving. Return emergency department if you are feeling worse.
[2021-01-02] MEDS: Metoclopramide 10 MG/2 ML Vial 5 MG IV (19:42)
[2021-01-02] MEDS: Morphine 4 MG/ML Syringe 6 MG IV (19:42)
[2021-01-02 19:46] VITALS: BP 176/92; PULSE 85; RESP 24; O2SAT 99
--- NOTE | 2021-01-02 20:31 | CT_ITS ---
STUDY: CT ABDOMEN AND PELVIS WITH CONTRAST REASON FOR EXAM: Female, 35 years old. Right flank pain -- CT Flank was negative RADIATION DOSAGE (If Supplied By Facility): CTDIvol = ( 17.41 ) mGy, DLP = ( 2117.60 ) mGycm TECHNIQUE: Transaxial images were obtained from the dome of the diaphragm to the symphysis pubis without oral contrast. IV 100mL [id number]-[id number] was administered. Sagittal and coronal images were reconstructed. Individualized dose optimization techniques were used for this CT. COMPARISON: 01/02/2021 at 17:07 hours. FINDINGS: The visualized lung bases are unremarkable. The visualized portions of the heart are within normal limits. Enlarged fatty liver. Nonvisualization of the gallbladder. No significant dilatation of the extrahepatic biliary system. Normal spleen. Normal pancreas. Normal bilateral adrenal glands. Diminished cortical enhancement of the right kidney right kidney. Cortical infarct cannot be excluded. Normal left kidney. Normal visualized stomach. Normal small intestine. Normal colon. The appendix is visualized and appears normal. Normal abdominal aorta. Normal inferior vena cava. Normal retroperitoneum. Normal urinary bladder. Normal abdominal wall. Normal osseous structures. CT/Abdomen/Pelvis W IV Cont ONLY IMPRESSION: Enlarged fatty liver. Diminished cortical enhancement of the right kidney right kidney. Cortical infarct cannot be excluded. Electronically Signed: Jean-Pierre Cobb DO at 21:49 EDT Tel [phone], Service support ,
[2021-01-02] MEDS: fentaNYL 100 MCG/2 ML Ampul 50 MCG IV ×2 (21:41→23:23)
[2021-01-02 21:56] VITALS: BP 139/76; PULSE 82; RESP 15; O2SAT 96
--- NOTE | 2021-01-02 22:15 | PCM.HP.STD ---
History of Present Illness Date of Admission: 01/02/21 Chief Complaint: Right flank pain The patient is a 35 y/o F w/ PMHx: Valvular Heart Disease s/p AVR x 3, Asthma, HTN, HLD, Hypothyroidism, PCOD, Diabetes mellitus type II, GERD, Chronic headaches who presents to the [facility] ED on 01/02/21 with right flank pain, nausea and emesis starting at 3:30 pm. recent hysterectomy Work-up in the ED included T 98.2, heart rate 80, BP 164/88, respiratory rate 18, 100% on room air, CBC with WC 8, hemoglobin 13.5, platelet 240 without marked shift, coags with PT 15, INR 1.3, CMP with potassium 3.3, BUN/creatinine 16/1.18, glucose 259 otherwise not marked appearing hepatic profile, urinalysis with specific gravity 1.015, protein 100, glucose 50, ketone 15, occult blood 50, negative nitrite, negative leukocyte esterase, 0 urine RBC and WBC however there is 2+ urine bacteria noted, initial CT abdomen pelvis performed earlier in the day 01/02/2021 at 1648 without contrast at that time noting an enlarged fatty liver with a nonobstructing left renal punctate calculi within repeat CT abdomen and pelvis with IV contrast at 2030 with noted enlarged fatty liver as well as diminished cortical enhancement of the right kidney with inability to exclude a cortical renal infarct otherwise no acute intra-abdominal findings. In the ED patient ministered Zofran, serial rounds of morphine and fentanyl in addition to Reglan. Intractable right flank pain possibly secondary to acute cortical infarct: We will admit to PCU, maintain on telemetry monitoring, will request hypercoagulable panel although patient did of note have recent surgery and initiate heparin drip Onx valve 1.5-2, forgot to take dose today. Past Medical History Past Medical History (Chronic Problems): Chronic Problems (Last Reviewed 09/18/20 @ 09:39 by Megan Skelton) Acute on chronic blood loss anemia (Chronic) Anemia (Chronic) Rosacea (Chronic) Hypertension (Chronic) Type 2 diabetes mellitus (Chronic) Hypothyroidism (Chronic) Aortic stenosis due to bicuspid aortic valve (Chronic) Diabetes type 2, uncontrolled (Chronic) Medical History: Medical History (Last Reviewed 09/18/20 @ 09:39 by Megan K Almo) Asthma J45.909 Breast lump N63.0 Chronic headaches R51 GERD (gastroesophageal reflux disease) K21.9 Gallstones K80.20 Goiter E04.9 H/O transfusion of whole blood Z92.89 Heart murmur R01.1 High cholesterol E78.00 High triglycerides E78.1 Hypothyroidism E03.9 Polycystic ovary E28.2 Type 2 diabetes mellitus E11.9 Dx : 2014 Last exacerbation : DKA : never Hypoglycemic episode : never ER visit : never UTI (urinary tract infection) N39.0 Vision problem H54.7 heart catheterization HTN (hypertension) I10 Allergies adhesive tape Allergy (Unknown, Verified 01/02/21 16:34) Unknown Sulfa (Sulfonamide Antibiotics) Allergy (Verified 01/02/21 16:34) Rash Home Medications: Ambulatory Orders Medication Instructions Recorded metoprolol succinate 100 mg 100 mg PO QHS 09/23/18 capsule sprinkle, ext. release 24 hr liraglutide 0.6 mg/0.1 mL (18 mg/3 1.8 mg SC DAILY 90 Days #27 ml 11/04/19 mL) subcutaneous pen injector Aspirin [Aspirin, Baby] 81 mg PO QHS #0 03/13/20 Ferrous Sulfate 325 mg PO DAILY #90 tablet. 03/13/20 Mecobalamin [B12 Active] 1,000 mcg PO DAILY #30 tab.chew 03/13/20 ascorbic acid (vitamin C) 500 mg 500 mg PO DAILY tab 07/07/20 tablet levonorgestrel 20 mcg/24 hours (6 1 device INTRAUTERINE ONCE 07/07/20 yrs) 52 mg intrauterine device warfarin 10 mg tablet 10 mg PO DAILY 07/07/20 omeprazole 20 mg capsule,delayed 20 mg PO QHS #90 cap 07/25/20 release montelukast 10 mg tablet 10 mg PO QHS #90 tab 08/31/20 levothyroxine 100 mcg tablet 100 mcg PO QHS #90 tab 09/27/20 metformin 1,000 mg tablet 1,000 mg PO DAILY #90 tab 09/27/20 losartan 50 mg tablet 50 mg PO DAILY #90 tablet 12/19/20 Surgical History: Surgical History (Last Reviewed 09/18/20 @ 09:39 by Megan Skelton) H/O aortic valve replacement Z95.2 x 2 H/O aortic valvuloplasty Z98.890 H/O wisdom tooth extraction K08.409 H/O: Z98.891 x 3 Hx of cholecystectomy Z90.49 Hx of tonsillectomy Z90.89 S/P aneurysm repair Z98.890, Z86.79 Surgical History: - - aortic valve surgery Psychiatric History: No pertinent psych hx 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 Smoking Status: Never smoker - Physical Exam Vitals/I&O's: Vital Signs Temp Pulse Resp BP Pulse Ox 98.2 F 82 15 139/76 H 96 01/02/21 16:35 01/02/21 21:56 01/02/21 21:56 01/02/21 21:56 01/02/21 21:56 Oxygen Delivery Method Room Air Weight: 230 lb 13.184 oz Body Mass Index (BMI) 36.1 Finger Stick Blood Glucose 206 Laboratory Results 01/02/21 17:00: WBC 8.0, RBC 4.20, Hgb 13.5, Hct 38.3, MCV 91.2, MCH 32.1 H, MCHC 35.2, RDW Std Deviation 40.6, RDW Coeff of Darren 12.2, Plt Count 240, MPV 10.3, Immature Gran % (Auto) 0.800, Neut % (Auto) 68.8, Lymph % (Auto) 21.2, [place] % (Auto) 5.5, Eos % (Auto) 3.1, Baso % (Auto) 0.6, Absolute Neuts (auto) 5.5, Absolute Lymphs (auto) 1.69, Nucleated RBC % 0 01/02/21 17:00: Sodium 136, Potassium 3.3 L, Chloride 100, Carbon Dioxide 25.0, Anion Gap 11, BUN 16, Creatinine 1.18 H, Estim Creat Clear Calc 64.09, Est GFR (MDRD) Af Amer 67, Est GFR (MDRD) Non-Af 55 L, BUN/Creatinine Ratio 13.6, Glucose 259 H, Calcium 8.8, Total Bilirubin 0.30, AST 33, ALT 49, Alkaline Phosphatase 58, Total Protein 7.8, Albumin 3.5, Globulin 4.3 H, Albumin/Globulin Ratio 0.8 L 01/02/21 17:00: PT 15.0 H, INR 1.3 04/20/21 17:50: Urine Color Yellow, Urine Clarity Clear, Urine pH 6.0, Ur Specific [place] 1.015, Urine Protein 100 H, Urine Glucose (UA) 50 H, Urine Ketones 15 H, Urine Occult Blood 50 H, Urine Nitrite Negative, Urine Bilirubin Negative, Urine Urobilinogen Normal, Ur Leukocyte Esterase Negative, Urine RBC 0-5 SEEN, Urine WBC 0 SEEN, Ur Squamous Epith Cells 0 SEEN, Urine Bacteria 2+, Hyaline Casts 0-5 SEEN, Urine Mucus 0 SEEN Assessment/Plan All Active Problems (Last Reviewed 09/18/20 @ 09:39 by Megan Skelton) Segmental and somatic dysfunction of thoracic region (Acute) Thoracic neuritis (Acute)
[2021-01-02] MEDS: proCHLORPERazine 10 MG/2 ML Vial 5 MG IV (23:02)
[2021-01-02 23:03] VITALS: BP 167/90; PULSE 84; RESP 17; O2SAT 97
[2021-01-02] MEDS: Heparin Injection (Vial) 5,000 UNIT/ML VIAL 8000 UNIT IV (23:27)
[2021-01-02 23:29] VITALS: BP 152/77; PULSE 77; RESP 14; TEMP 36.8; O2SAT 95
[2021-01-02] MEDS: HEPARIN/D5w 25,000 UNITS 25,000 UNITS/250 ML IV.SOLN. 15 UNITS IV (23:32)
--- NOTE | 2021-01-02 23:51 | PCM.HP.STD ---
Problem List (1) Kidney infarction Status: Acute (2) Aortic stenosis due to bicuspid aortic valve Status: Chronic (3) Hypothyroidism Status: Chronic (4) Type 2 diabetes mellitus Status: Chronic (5) Hypertension Status: Chronic History of Present Illness Date of Admission: 01/02/21 Chief Complaint: right flank pain The patient is a 35 year old F presents to the ER with right flank pain that came on suddenly earlier this afternoon. Patient states that right flank pain radiates to her lower back and has associated nausea without vomiting. Patient denies diarrhea, fever, difficulty urinating, hematuria. Patient reports that she has no history of trauma or kidney stones. Patient states there is nothing that alleviates the pain and that the pain has been consistently 8/10 since its onset. Past Medical History Past Medical History (Chronic Problems): Chronic Problems (Last Reviewed 01/02/21 @ 23:58 by Ayesha Sweet MAINSTREAMING FACILITATOR-C) Aortic stenosis due to bicuspid aortic valve (Chronic) Hypothyroidism (Chronic) Type 2 diabetes mellitus (Chronic) Hypertension (Chronic) Medical History: Medical History (Last Reviewed 01/02/21 @ 23:58 by Ayesha Sweet NP-C) Asthma J45.909 Breast lump N63.0 Chronic headaches R51 GERD (gastroesophageal reflux disease) K21.9 Gallstones K80.20 Goiter E04.9 H/O transfusion of whole blood Z92.89 Heart murmur R01.1 High cholesterol E78.00 High triglycerides E78.1 Hypothyroidism E03.9 Polycystic ovary E28.2 Type 2 diabetes mellitus E11.9 Dx : 2013 Last exacerbation : DKA : never Hypoglycemic episode : never ER visit : never UTI (urinary tract infection) N39.0 Vision problem H54.7 heart catheterization HTN (hypertension) I10 Allergies adhesive tape Allergy (Unknown, Verified 01/02/21 16:34) Unknown Sulfa (Sulfonamide Antibiotics) Allergy (Verified 01/02/21 16:34) Rash Home Medications: Ambulatory Orders Medication Instructions Recorded metoprolol succinate 100 mg 100 mg PO QHS 09/23/18 capsule sprinkle, ext. release 24 hr liraglutide 0.6 mg/0.1 mL (18 mg/3 1.8 mg SC DAILY 90 Days #27 ml 11/04/19 mL) subcutaneous pen injector Aspirin [Aspirin, Baby] 81 mg PO QHS #0 03/13/20 Ferrous Sulfate 325 mg PO DAILY #90 tablet. 03/13/20 Mecobalamin [B12 Active] 1,000 mcg PO DAILY #30 tab.chew 03/13/20 ascorbic acid (vitamin C) 500 mg 500 mg PO DAILY tab 07/07/20 tablet levonorgestrel 20 mcg/24 hours (6 1 device INTRAUTERINE ONCE 07/07/20 yrs) 52 mg intrauterine device warfarin 10 mg tablet 10 mg PO DAILY 07/07/20 omeprazole 20 mg capsule,delayed 20 mg PO QHS #90 cap 07/25/20 release montelukast 10 mg tablet 10 mg PO QHS #90 tab 08/31/20 levothyroxine 100 mcg tablet 100 mcg PO QHS #90 tab 09/27/20 metformin 1,000 mg tablet 1,000 mg PO DAILY #90 tab 09/27/20 losartan 50 mg tablet 50 mg PO DAILY #90 tablet 12/19/20 Surgical History: Surgical History (Last Reviewed 01/02/21 @ 23:59 by Ayesha Sweet, MAINSTREAMING FACILITATOR-C) H/O aortic valve replacement Z95.2 x 2 H/O aortic valvuloplasty Z98.890 H/O wisdom tooth extraction K08.409 H/O: Z98.891 x 3 H/O: hysterectomy Z90.710 Hx of cholecystectomy Z90.49 Hx of tonsillectomy Z90.89 S/P aneurysm repair Z98.890, Z86.79 Surgical History: hysterectomy, - - aortic valve surgery Psychiatric History: No pertinent psych hx DIRECTOR 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 History: No pertinent DIRECTOR FACILITIES MAINTENANCE history Smoking Status: Never smoker - *Family History Maternal Family History: Family History (Last Reviewed 09/18/20 @ 09:39 by Megan Skelton) Grandmother Asthma Hypertension Grandfather Asthma Arthritis Cancer Diabetes Aunt Breast cancer Autoimmune disease Uncle Cancer Mother Diabetes Thyroid disorder Father Diabetes Sister Autoimmune disease Review of Systems Constitutional: Denies: Chills, Fever, Weight Change HEENT: Denies: Head Aches, Sinus Congestion, Sinus Drainage Cardiovascular: Denies: Chest Pain, Palpitations Respiratory: Denies: Cough, Shortness of breath at rest, Sputum production Gastrointestinal: Reports: Nausea - Concurrent with right flank pain. Denies: Abdominal Pain, Vomiting Genitourinary: Reports: - - Right Flank pain. Denies: Dysuria Musculoskeletal: Denies: Joint Pain, Joint Tenderness Skin: Denies: Rash, Wounds Neurological: Denies: Numbness, Tingling, Focal weakness Psychiatric: Denies: Anxiety, Depression, Homicidal Ideations, Suicidal Ideations Hematologic/ Lymphatic: Denies: Easy Bruising, Easy Bleeding VTE Information - Inpt Only VTE Present on Admission: No VTE Mechan Device Prophylaxis: None VTE Pharm Prophylaxis ordered?: No Patient Problems: Active and Suspected Problems (Last Reviewed 01/02/21 @ 23:58 by Ayesha Sweet NP-C) Kidney infarction (Acute) - Physical Exam Vitals/I&O's: Vital Signs Temp Pulse Resp BP Pulse Ox 98.2 F 77 14 152/77 H 95 01/02/21 23:29 01/02/21 23:29 01/02/21 23:29 01/02/21 23:29 01/02/21 23:29 Oxygen Delivery Method Room Air Weight: 230 lb 13.184 oz Body Mass Index (BMI) 36.1 Finger Stick Blood Glucose 206 General: Alert, Oriented x3, Cooperative HEENT: Atraumatic, PERRLA, EOMI, Normocephalic Neck: Supple, No JVD, Negative Carotid Bruits Lungs: Clear to auscultation, Normal air movement, No rhonchi, No wheeze, No rales Cardiovascular: Regular rate, Regular Rhythm, Normal S1, Normal S2, No murmurs Abdomen: Bowel Sounds Present, Soft, Non Tender Extremities: No edema, Capillary Refill Less than 3 Seconds Skin: No rashes, No breakdown Musculoskeletal: No Tenderness to Palpation of Joints or Extremities Neurological: Cranial nerves II-XII grossly intact Psych/Mental Status: Normal Affect, Appropriate Laboratory Results 01/02/21 17:00: WBC 8.0, RBC 4.20, Hgb 13.5, Hct 38.3, MCV 91.2, MCH 32.1 H, MCHC 35.2, RDW Std Deviation 40.6, RDW Coeff of Darren 12.2, Plt Count 240, MPV 10.3, Immature Gran % (Auto) 0.800, Neut % (Auto) 68.8, Lymph % (Auto) 21.2, [place] % (Auto) 5.5, Eos % (Auto) 3.1, Baso % (Auto) 0.6, Absolute Neuts (auto) 5.5, Absolute Lymphs (auto) 1.69, Nucleated RBC % 0 01/02/21 17:00: Sodium 136, Potassium 3.3 L, Chloride 100, Carbon Dioxide 25.0, Anion Gap 11, BUN 16, Creatinine 1.18 H, Estim Creat Clear Calc 64.09, Est GFR (MDRD) Af Amer 67, Est GFR (MDRD) Non-Af 55 L, BUN/Creatinine Ratio 13.6, Glucose 259 H, Calcium 8.8, Total Bilirubin 0.30, AST 33, ALT 49, Alkaline Phosphatase 58, Total Protein 7.8, Albumin 3.5, Globulin 4.3 H, Albumin/Globulin Ratio 0.8 L 01/02/21 17:00: PT 15.0 H, INR 1.3 01/02/21 17:50: Urine Color Yellow, Urine Clarity Clear, Urine pH 6.0, Ur Specific [place] 1.015, Urine Protein 100 H, Urine Glucose (UA) 50 H, Urine Ketones 15 H, Urine Occult Blood 50 H, Urine Nitrite Negative, Urine Bilirubin Negative, Urine Urobilinogen Normal, Ur Leukocyte Esterase Negative, Urine RBC 0-5 SEEN, Urine WBC 0 SEEN, Ur Squamous Epith Cells 0 SEEN, Urine Bacteria 2+, Hyaline Casts 0-5 SEEN, Urine Mucus 0 SEEN 01/02/21 23:00: APTT 33.0 01/02/21 23:00: Miscellaneous Test Pending 01/02/21 23:00: Protein C Antigen Pending, Functional Protein C Pending, Prot C Funct Activity Pending, Antithrombin III Ag Pending, Func Antithrombin III Pending, Factor V Leiden Mutat Pending, Beta-2-GPI IgG Ab Pending, Beta-2-GPI IgA Ab Pending, Beta-2-GPI IgM Ab Pending, Anti-Cardiolipin IgG Ab Pending, Anti-Cardiolipin IgM Ab Pending, Factor II DNA Analysis Pending Current Medications Heparin Sodium (Porcine) (Heparin Injection (Vial) 5,000 Unit/Ml Vial) 0 unit IV UD PRN; Protocol PRN Reason: dose adjustment Heparin Sodium/Dextrose () 25,000 units in 250 mls @ 15 mls/hr IV .[id number] [facility]; Protocol Last Admin: 01/02/21 23:32 Dose: 1,500 units/hr, 15 mls/hr Documented by: Assessment/Plan All Active Problems (Last Reviewed 01/02/21 @ 23:58 by ARIANNE Delcid) Thoracic neuritis (Acute) Segmental and somatic dysfunction of thoracic region (Acute) Kidney infarction (Acute) 1. Right kidney infarction -Prior to admission patient's case was discussed with physician at [facility], who stated there was no intervention to be done. Recommendation was made by that physician to ER physician to initiate heparin drip and obtain renal ultrasound amenable for [facility] admission -Admit to PCU for cardiac monitoring -Continue heparin drip initiated in ER, PTT per protocol -Renal ultrasound ordered for a.m. -CBC and CMP daily -Hypercoagulopathy panel ordered -Pain management regimen ordered due to patient significant pain -Antiemetic regimen ordered due to increased nausea associated with pain 2. Acute kidney injury -Likely secondary to #1 -IV fluid 100ml/hr ordered following CT with contrast. -Trend CMP daily 3. Hypokalemia -Likely related to #2 -Potassium chloride 40 M EQ p.o. x1 ordered -CMP in morning -Will check magnesium level 4. Aortic stenosis due to bicuspid aortic valve -Hold warfarin due to patient being initiated on heparin drip 5. Hypothyroidism -Continue levothyroxine 6. Type 2 diabetes mellitus -Hold Metformin and Victoza -AC at bedtime blood sugars ordered with sliding scale insulin 7. Hypertension -Continue home medication regimen of losartan and metoprolol DVT prophylaxis?not indicated, patient on heparin drip This patient was seen by ARIANNE Delcid under the supervision of Dr. Odom.
[2021-01-03] VITALS (13 sets, daily range): BP systolic 136–163; BP diastolic 77–88; PULSE 73–83; RESP 16–18; TEMP 36.5–36.9; O2SAT 96–98; BMI 33.9
[2021-01-03 01:12] LABS: Magnesium 1.6 mg/dL (1.6-2.6)
[2021-01-03] MEDS: Morphine 4 MG/ML Syringe IV ×5 (01:41→20:16)
[2021-01-03] MEDS: 0.9% Normal Saline 1,000 ML 100 ML IV (01:41)
[2021-01-03] MEDS: Potassium Chloride Oral Tablet 20 MEQ 40 MEQ PO (01:41)
[2021-01-03] MEDS: HEPARIN/D5w 25,000 UNITS 25,000 UNITS/250 ML IV.SOLN. 14 UNITS IV (01:46)
[2021-01-03] MEDS: Levothyroxine 100 MCG Tablet PO (05:36)
[2021-01-03 06:04] LABS: Absolute Lymphocyte Count 1.12 X10^3/uL (0.83-4.51); Absolute Neutrophil Count 9.2 X10^3/uL (2.0-7.7); Basophil# 0.04 X10^3/uL; Basophil% 0.4 % (0-1); Eosinophil# 0.01 X10^3/uL; Eosinophils% 0.1 % (0-5); Hematocrit 39.1 % (37-47); Hemoglobin 13.1 g/dL (12.0-15.0); Lymphocyte # 1.12 X10^3/ul (0.83-4.51); Lymphocyte % 10.2 % (19-41); Mean Corp Hgb Conc 33.5 g/dL (32-36); Mean Corpuscular Hgb 30.8 pg (27.0-32.0); Mean Corpuscular Volume 91.8 fL (81-99); Mean Platelet Vol. 10.4 fl (6.2-12.0); Monocyte% 5.4 % (0-10); NRBC Flagged by Analyzer 0 % (0-5); Neutrophil # 9.19 X10^3/uL (2.7-7.7); Neutrophil % 83.3 % (47-70); Platelet Count 246 K/mm3 (150-450); RBC Distribution Width CV 12.4 % (11.6-14.6); RBC Distribution Width SD 41.5 fl (35.1-43.9); Red Blood Count 4.26 M/mm3 (4.2-5.4)
[2021-01-03 06:25] LABS: Partial Thromboplast Time 63.8 Seconds (24.1-36.2)
[2021-01-03 06:35] LABS: ALB/GLOB Ratio 0.8 RATIO (0.9-2.4); AST(SGOT) 106 U/L (15-37); Alanine Aminotransfer ALT/SGPT 61 U/L (13-56); Albumin, Serum 3.5 g/dL (3.2-5.0); Alkaline Phosphatase 58 U/L (45-117); Anion Gap 8 (5-15); BUN 15 mg/dL (7-18); BUN/Creat Ratio 11.1 RATIO (10-20); Chloride 99 mmol/L (98-107); Creatinine, Serum 1.35 mg/dL (0.55-1.02); EST Glomerular Filtration Rate 47 mL/min (>60); Est Glom Filt Rate - Afr Amer 57 mL/min (>60); Estimated Creatinine Clearance 56.02 ml/min; Globulin 4.5 g/dL (2.2-4.2); Glucose 243 mg/dL (74-106); Sodium Level 135 mmol/L (136-145)
[2021-01-03 06:50] LABS: Bedside Glucose 247 mg/dL (70-110)
[2021-01-03] MEDS: Insulin Lispro 100 UNIT/ML INSULN.PEN SC ×4 (06:51→22:22)
--- NOTE | 2021-01-03 09:31 | US_ITS ---
STUDY: RENAL ULTRASOUND - COMPLETE REASON FOR EXAM: Female, 35 years old. Pos rt kidney infarct . Right flank pain. TECHNIQUE: Ultrasound evaluation of the kidneys was performed with real-time and static pepe-scale imaging. COMPARISON: Comparison is made with prior CT scan abdomen dated 01/03/2021. FINDINGS: RIGHT KIDNEY: Normal location of the right kidney, which is normal in size. The right kidney measures 13.7 cm x 5.7 cm x 4.7 cm. Heterogeneous appearance of the renal cortex in the anterior aspect of the upper pole. This may represent the area of possible infection/infarct. The renal cortex measures 1.6 cm. There is no right renal mass or cyst. There are no right renal calculi. There is no right hydronephrosis. DISTAL RIGHT URETER: There is non-visualization of the distal right ureter. There is no demonstrated right ureterovesical junction calculus. There is a visualized right ureteral jet. LEFT KIDNEY: Normal location of the left kidney, which is normal in size. The left kidney measures 11.3 cm x 5.77 x 5.8 cm. There is a normal cortex of the left kidney. The renal cortex measures 1.9 cm. There is no left renal mass or cyst. There are no left renal calculi. There is no left hydronephrosis. DISTAL LEFT URETER: There is non-visualization of the distal left ureter. There is no demonstrated left ureterovesical junction calculus. There is a visualized left ureteral jet. BLADDER: The distended urinary bladder has a volume of 276 ml. There is a normal wall thickness of the distended urinary bladder. There is no demonstrated mass within the urinary bladder. There are no demonstrated bladder calculi. US/Kidney and Bladder IMPRESSION: Focal area of heterogeneous echotexture of the anterior superior cortex of the right kidney as described. This most likely corresponds to the recent CT findings. Electronically Signed: Rhys Chavez MD at 15:14 EDT , Service support ,
[2021-01-03] MEDS: Ascorbic Acid 500 MG Tablet PO (09:43)
[2021-01-03] MEDS: Losartan Potassium 25 MG Tablet PO (09:43)
[2021-01-03] MEDS: oxyCODONE 5 MG Tablet PO ×2 (09:51→22:19)
[2021-01-03] MEDS: Metoprolol(XL)Succ 100 MG Tablet PO (09:51)
--- NOTE | 2021-01-03 10:40 | CASEMGMT ---
RN CM TOOL GRINDER SET UP OPERATOR GEAR CM to room to meet with patient for initial transition planning/care coordination assessment. RN ARABELLA introduced self and role at [facility]. Pt voices understanding and consents to assessment at this time. Pt resting in bed in no distress at this time. Pt is A/O at this time and answers all questions appropriately. Care providers, pharmacy, and demographics verified/updated at this time. PCP: Dr Sweet Specialists: Dr Arvin Burgess--fabrication manager @ [facility] Pharmacy: [facility] Retail pharmacy Insurance: [facility] [employer] Prescription Benefit: Yes LNOK: , Joaquim. Living Arrangements: Lives w/her , Joaquim, and children. Independent. Works part-time. Transportation: Pt states drives self and states no transportation concerns at this time. DME: States has the following DME: glucometer. Pt states Dr Burgess is checking into getting her a machine to check her INR. Denies need for further DME. HHC: No history of HHC. No needs identified. Pt wishes to return home and states has no concerns with going home at time of discharge. CM to follow for any discharge planning/needs. Pt voices no concerns/needs at this time. Advised pt to ask for CM if any questions/concerns/needs arise. Voices understanding. PLAN: Home w/family support and discharge plans in place. Joan BOLANOS RN, CM
[2021-01-03 11:40] LABS: Partial Thromboplast Time 48.8 Seconds (24.1-36.2)
[2021-01-03] MEDS: Heparin Injection (Vial) 5,000 UNIT/ML VIAL IV (12:03)
[2021-01-03] MEDS: Ondansetron 4 MG/2 ML Vial IV (12:04)
[2021-01-03] MEDS: HEPARIN/D5w 25,000 UNITS 25,000 UNITS/250 ML IV.SOLN. 15 UNITS IV (13:25)
[2021-01-03 13:31] LABS: Bedside Glucose 229 mg/dL (70-110)
--- NOTE | 2021-01-03 14:51 | PCM.PN.HOSP ---
<Arvin Ortiz - Last Filed: 01/03/21 14:51> Patient Problems: Active and Suspected Problems (Last Reviewed 01/02/21 @ 23:58 by Ayesha Sweet NP-C) Kidney infarction (Acute) Subjective: Patient is a 35-year-old female comfortably resting in bed, alert and oriented x3. Patient still endorses flank pain about the right flank. Denies chest pain, shortness of breath, palpitations, fever, chills, N/V/D. Objective: Clinical Impression(s) from Imaging Studies Abdomen/Pelvis CT 01/02/21 16:48 IMPRESSION: Enlarged fatty liver. Nonobstructing left renal punctate calculi. Electronically Signed: Jean-Pierre Cobb DO at 17:32 EDT Tel [phone], Service support , Abdomen/Pelvis CT 01/02/21 20:31 IMPRESSION: Enlarged fatty liver. Diminished cortical enhancement of the right kidney right kidney. Cortical infarct cannot be excluded. Electronically Signed: Jean-Pierre Cobb DO at 21:49 EDT Tel [phone], Service support , Vitals/I&O's: Vital Signs Temp Pulse Resp BP Pulse Ox 98.5 F 79 16 163/88 H 98 01/03/21 10:00 01/03/21 12:52 01/03/21 10:00 01/03/21 10:00 01/03/21 10:00 Oxygen Delivery Method Room Air Weight: 216 lb 7.903 oz Body Mass Index (BMI) 33.9 Finger Stick Blood Glucose 206 Intake and Output for Last 24 Hours 01/01/21 01/02/21 01/03/21 23:59 23:59 23:59 Intake Total 1452.85 / 1452.85 Output Total 300 / 300 Balance 1152.85 / 1152.85 General: Alert, Oriented x3, Cooperative HEENT: Atraumatic, PERRLA, EOMI, Normocephalic Neck: Supple, No JVD, Negative Carotid Bruits Lungs: Clear to auscultation, Normal air movement Cardiovascular: Murmur - 5 out of 6 systolic murmur. Abdomen: Soft, Tender - Tenderness about the right flank. Extremities: No edema, Capillary Refill Less than 3 Seconds Skin: No rashes, No breakdown Musculoskeletal: No Tenderness to Palpation of Joints or Extremities Neurological: Cranial nerves II-XII grossly intact Psych/Mental Status: Normal Affect, Appropriate Laboratory Results 01/02/21 17:00: WBC 8.0, RBC 4.20, Hgb 13.5, Hct 38.3, MCV 91.2, MCH 32.1 H, MCHC 35.2, RDW Std Deviation 40.6, RDW Coeff of Darren 12.2, Plt Count 240, MPV 10.3, Immature Gran % (Auto) 0.800, Neut % (Auto) 68.8, Lymph % (Auto) 21.2, Wells % (Auto) 5.5, Eos % (Auto) 3.1, Baso % (Auto) 0.6, Absolute Neuts (auto) 5.5, Absolute Lymphs (auto) 1.69, Nucleated RBC % 0 01/02/21 17:00: Sodium 136, Potassium 3.3 L, Chloride 100, Carbon Dioxide 25.0, Anion Gap 11, BUN 16, Creatinine 1.18 H, Estim Creat Clear Calc 64.09, Est GFR (MDRD) Af Amer 67, Est GFR (MDRD) Non-Af 55 L, BUN/Creatinine Ratio 13.6, Glucose 259 H, Calcium 8.8, Total Bilirubin 0.30, AST 33, ALT 49, Alkaline Phosphatase 58, Total Protein 7.8, Albumin 3.5, Globulin 4.3 H, Albumin/Globulin Ratio 0.8 L 01/02/21 17:00: PT 15.0 H, INR 1.3 01/02/21 17:50: Urine Color Yellow, Urine Clarity Clear, Urine pH 6.0, Ur Specific [place] 1.015, Urine Protein 100 H, Urine Glucose (UA) 50 H, Urine Ketones 15 H, Urine Occult Blood 50 H, Urine Nitrite Negative, Urine Bilirubin Negative, Urine Urobilinogen Normal, Ur Leukocyte Esterase Negative, Urine RBC 0-5 SEEN, Urine WBC 0 SEEN, Ur Squamous Epith Cells 0 SEEN, Urine Bacteria 2+, Hyaline Casts 0-5 SEEN, Urine Mucus 0 SEEN 01/02/21 23:00: APTT 33.0 01/02/21 23:00: Miscellaneous Test Pending 01/02/21 23:00: Protein C Antigen Pending, Functional Protein C Pending, Prot C Funct Activity Pending, Antithrombin III Ag Pending, Func Antithrombin III Pending, Factor V Leiden Mutat Pending, Beta-2-GPI IgG Ab Pending, Beta-2-GPI IgA Ab Pending, Beta-2-GPI IgM Ab Pending, Anti-Cardiolipin IgG Ab Pending, Anti-Cardiolipin IgM Ab Pending, Factor II DNA Analysis Pending 01/03/21 05:45: APTT 63.8 H 01/03/21 05:45: WBC 11.0, RBC 4.26, Hgb 13.1, Hct 39.1, MCV 91.8, MCH 30.8, MCHC 33.5, RDW Std Deviation 41.5, RDW Coeff of Darren 12.4, Plt Count 246, MPV 10.4, Immature Gran % (Auto) 0.600, Neut % (Auto) 83.3 H, Lymph % (Auto) 10.2 L, Wells % (Auto) 5.4, Eos % (Auto) 0.1, Baso % (Auto) 0.4, Absolute Neuts (auto) 9.2 H, Absolute Lymphs (auto) 1.12, Nucleated RBC % 0 01/03/21 05:45: Sodium 135 L, Potassium 4.0, Chloride 99, Carbon Dioxide 28.0, Anion Gap 8, BUN 15, Creatinine 1.35 H, Estim Creat Clear Calc 56.02, Est GFR (MDRD) Af Amer 57 L, Est GFR (MDRD) Non-Af 47 L, BUN/Creatinine Ratio 11.1, Glucose 243 H, Calcium 9.0, Total Bilirubin 0.60, AST 106 H, ALT 61 H, Alkaline Phosphatase 58, Total Protein 8.0, Albumin 3.5, Globulin 4.5 H, Albumin/Globulin Ratio 0.8 L 01/03/21 06:47: POC Glucose 247 H 01/03/21 11:20: APTT 48.8 H 01/03/21 13:21: POC Glucose 229 H 01/03/21 : Magnesium 1.6 Current Medications Acetaminophen (Acetaminophen 325 Mg Tablet) 650 mg PO Q6H PRN PRN PRN Reason: Pain Score 1-10/Temp > 100.7 F Ascorbic Acid (Ascorbic Acid 500 Mg Tablet) 500 mg PO DAILY [facility] Last Admin: 01/03/21 09:43 Dose: 500 mg Documented by: Aspirin (Aspirin 81 Mg Tab.Chew) 81 mg PO QHS [facility] Docusate Sodium (Docusate Sodium 100 Mg Capsule) 100 mg PO BID PRN PRN PRN Reason: Constipation Ferrous Sulfate (Ferrous Sulfate 325 Mg Tablet) 325 mg PO QODAY@1200 [facility] Last Admin: 01/03/21 13:33 Dose: Not Given Documented by: Heparin Sodium (Porcine) (Heparin Injection (Vial) 5,000 Unit/Ml Vial) 0 unit IV UD PRN; Protocol PRN Reason: dose adjustment Last Admin: 01/03/21 12:03 Dose: 1,000 unit Documented by: Sodium Chloride () 250 mls @ 15 mls/hr IV .[id number] PRN PRN Reason: Saline Flush Sodium Chloride () 250 mls @ 15 mls/hr IV .[id number] PRN PRN Reason: Additional IVPB Infusion Heparin Sodium/Dextrose () 25,000 units in 250 mls @ 14 mls/hr IV .[id number] [facility]; Protocol Last Admin: 01/03/21 13:25 Dose: 1,500 units/hr, 15 mls/hr Documented by: Insulin Human Lispro (Insulin Lispro 100 Unit/Ml Insuln.Pen) 0 unit SC ACHS [facility]; Protocol Last Admin: 01/03/21 13:23 Dose: 2 units Documented by: Levothyroxine Sodium (Levothyroxine 100 Mcg Tablet) 100 mcg PO DAILY@0600 [facility] Last Admin: 01/03/21 05:36 Dose: 100 mcg Documented by: Losartan Potassium (Losartan Potassium 25 Mg Tablet) 25 mg PO DAILY [facility] Last Admin: 01/03/21 09:43 Dose: 25 mg Documented by: Melatonin (Melatonin 3 Mg Tablet) 3 mg PO QHS PRN PRN PRN Reason: INSOMNIA Metoprolol Succinate (Metoprolol(Xl)Succ 100 Mg Tablet) 100 mg PO QHS [facility] Last Admin: 01/03/21 09:51 Dose: 100 mg Documented by: Montelukast Sodium (Montelukast 10 Mg Tablet) 10 mg PO QHS [facility] Morphine Sulfate (Morphine 4 Mg/Ml Syringe) 4 mg IV Q3H PRN PRN PRN Reason: Pain Score 6-10 Last Admin: 01/03/21 12:04 Dose: 4 mg Documented by: Ondansetron HCl (Ondansetron 4 Mg/2 Ml Vial) 4 mg IV Q8H PRN PRN PRN Reason: NAUSEA/VOMITING Last Admin: 01/03/21 12:04 Dose: 4 mg Documented by: Oxycodone HCl (Oxycodone 5 Mg Tablet) 5 mg PO Q4H PRN PRN PRN Reason: Pain Score 4-5 Last Admin: 01/03/21 09:51 Dose: 5 mg Documented by: Pantoprazole Sodium (Pantoprazole Sodium 20 Mg Tablet) 20 mg PO QHS [facility] Prochlorperazine Edisylate (Prochlorperazine 10 Mg/2 Ml Vial) 5 mg IV Q4H PRN PRN PRN Reason: Breakthrough Nausea/Vomiting Sodium Chloride (0.9% Saline Lock 10 Ml Syringe) 10 - 40 ml IV UD PRN PRN Reason: SALINE FLUSH Warfarin Sodium (Warfarin 5 Mg Tablet) 10 mg PO DAILY@1700 [facility] STROKE Vital Signs/Narrative: Vital Signs Pulse 01/03/21 12:52 79 Medical Necessity - Tobacco Use Smoking Status: Never smoker Tobacco Use: Non-smoker Assessment/Plan All Active Problems (Last Reviewed 01/02/21 @ 23:58 by Ayesha Sweet, CERTIFIED RESIDENTIAL MEDICATION AIDE-C) Thoracic neuritis (Acute) Segmental and somatic dysfunction of thoracic region (Acute) Kidney infarction (Acute) Patient is a 35-year-old female who presented to the ED on 01/02/2021 with a chief complaint of right flank plain that radiated to her lower back and is associated with nausea and vomiting. Patient was admitted for right kidney infarction, VANNA and hypokalemia. Kidney and bladder ultrasound scheduled for 01/03/2021. Currently awaiting results. 1) Intractable right flank pain possibly secondary to acute cortical infarct CT of the abdomen and pelvis demonstrated enlarged fatty liver with diminished cortical enhancement of the right kidney, right kidney infarct suspected. Renal ultrasound scheduled for 01/03/2021 currently awaiting results. Plan; hypercoagulopathy panel ordered, continue heparin drip, as needed oral and IV narcotic therapy. 2) hypokalemia Resolved, 4.0. Plan; continue to monitor CMP daily, mag level ordered. 3) VANNA Likely secondary to cortical infarct. Creatinine 1.35, continue to trend up from admission. Plan; continue to trend, consider nephrology consult if worsens or pending results of ultrasound. 4) Aortic stenosis due to bicuspid aortic valve Plan; Heparin drip initiated, hold warfarin. 5) Hypothyroidism Plan; continue levothyroxine 6) DM 2 Plan; continue Accu-Cheks at bedtime with sliding scale insulin ordered. Continue to hold metformin and Victoza. 7) hypertension Plan; continue home losartan and metoprolol regimen. DVT prophylaxis -Heparin drip initiated at admission. Patient seen by Arvin Ortiz PA-C, under the supervision of Dr. Cuellar. <Topher Cuellar - Last Filed: 01/03/21 15:45> Vitals/I&O's: Vital Signs Temp Pulse Resp BP Pulse Ox 98.5 F 79 16 163/88 H 98 01/03/21 10:00 01/03/21 12:52 01/03/21 10:00 01/03/21 10:00 01/03/21 10:00 Oxygen Delivery Method Room Air Weight: 98.2 kg Body Mass Index (BMI) 33.9 Finger Stick Blood Glucose 206 Intake and Output for Last 24 Hours 01/01/21 01/02/21 01/03/21 23:59 23:59 23:59 Intake Total 2247.85 / 2247.85 Output Total 1100 / 1100 Balance 1147.85 / 1147.85 Laboratory Results 01/02/21 17:00: WBC 8.0, RBC 4.20, Hgb 13.5, Hct 38.3, MCV 91.2, MCH 32.1 H, MCHC 35.2, RDW Std Deviation 40.6, RDW Coeff of Darren 12.2, Plt Count 240, MPV 10.3, Immature Gran % (Auto) 0.800, Neut % (Auto) 68.8, Lymph % (Auto) 21.2, Wells % (Auto) 5.5, Eos % (Auto) 3.1, Baso % (Auto) 0.6, Absolute Neuts (auto) 5.5, Absolute Lymphs (auto) 1.69, Nucleated RBC % 0 01/02/21 17:00: Sodium 136, Potassium 3.3 L, Chloride 100, Carbon Dioxide 25.0, Anion Gap 11, BUN 16, Creatinine 1.18 H, Estim Creat Clear Calc 64.09, Est GFR (MDRD) Af Amer 67, Est GFR (MDRD) Non-Af 55 L, BUN/Creatinine Ratio 13.6, Glucose 259 H, Calcium 8.8, Total Bilirubin 0.30, AST 33, ALT 49, Alkaline Phosphatase 58, Total Protein 7.8, Albumin 3.5, Globulin 4.3 H, Albumin/Globulin Ratio 0.8 L 01/02/21 17:00: PT 15.0 H, INR 1.3 01/02/21 17:50: Urine Color Yellow, Urine Clarity Clear, Urine pH 6.0, Ur Specific [place] 1.015, Urine Protein 100 H, Urine Glucose (UA) 50 H, Urine Ketones 15 H, Urine Occult Blood 50 H, Urine Nitrite Negative, Urine Bilirubin Negative, Urine Urobilinogen Normal, Ur Leukocyte Esterase Negative, Urine RBC 0-5 SEEN, Urine WBC 0 SEEN, Ur Squamous Epith Cells 0 SEEN, Urine Bacteria 2+, Hyaline Casts 0-5 SEEN, Urine Mucus 0 SEEN 01/02/21 23:00: APTT 33.0 01/02/21 23:00: Miscellaneous Test Pending 01/02/21 23:00: Protein C Antigen Pending, Functional Protein C Pending, Prot C Funct Activity Pending, Antithrombin III Ag Pending, Func Antithrombin III Pending, Factor V Leiden Mutat Pending, Beta-2-GPI IgG Ab Pending, Beta-2-GPI IgA Ab Pending, Beta-2-GPI IgM Ab Pending, Anti-Cardiolipin IgG Ab Pending, Anti-Cardiolipin IgM Ab Pending, Factor II DNA Analysis Pending 01/03/21 05:45: APTT 63.8 H 01/03/21 05:45: WBC 11.0, RBC 4.26, Hgb 13.1, Hct 39.1, MCV 91.8, MCH 30.8, MCHC 33.5, RDW Std Deviation 41.5, RDW Coeff of Darren 12.4, Plt Count 246, MPV 10.4, Immature Gran % (Auto) 0.600, Neut % (Auto) 83.3 H, Lymph % (Auto) 10.2 L, Wells % (Auto) 5.4, Eos % (Auto) 0.1, Baso % (Auto) 0.4, Absolute Neuts (auto) 9.2 H, Absolute Lymphs (auto) 1.12, Nucleated RBC % 0 01/03/21 05:45: Sodium 135 L, Potassium 4.0, Chloride 99, Carbon Dioxide 28.0, Anion Gap 8, BUN 15, Creatinine 1.35 H, Estim Creat Clear Calc 56.02, Est GFR (MDRD) Af Amer 57 L, Est GFR (MDRD) Non-Af 47 L, BUN/Creatinine Ratio 11.1, Glucose 243 H, Calcium 9.0, Total Bilirubin 0.60, AST 106 H, ALT 61 H, Alkaline Phosphatase 58, Total Protein 8.0, Albumin 3.5, Globulin 4.5 H, Albumin/Globulin Ratio 0.8 L 01/03/21 06:47: POC Glucose 247 H 01/03/21 11:20: APTT 48.8 H 01/03/21 13:21: POC Glucose 229 H 01/03/21 : Magnesium 1.6 Current Medications Acetaminophen (Acetaminophen 325 Mg Tablet) 650 mg PO Q6H PRN PRN PRN Reason: Pain Score 1-10/Temp > 100.7 F Ascorbic Acid (Ascorbic Acid 500 Mg Tablet) 500 mg PO DAILY [facility] Last Admin: 01/03/21 09:43 Dose: 500 mg Documented by: Aspirin (Aspirin 81 Mg Tab.Chew) 81 mg PO QHS [facility] Docusate Sodium (Docusate Sodium 100 Mg Capsule) 100 mg PO BID PRN PRN PRN Reason: Constipation Ferrous Sulfate (Ferrous Sulfate 325 Mg Tablet) 325 mg PO QODAY@1200 [facility] Last Admin: 01/03/21 13:33 Dose: Not Given Documented by: Heparin Sodium (Porcine) (Heparin Injection (Vial) 5,000 Unit/Ml Vial) 0 unit IV UD PRN; Protocol PRN Reason: dose adjustment Last Admin: 01/03/21 12:03 Dose: 1,000 unit Documented by: Sodium Chloride () 250 mls @ 15 mls/hr IV .[id number] PRN PRN Reason: Saline Flush Sodium Chloride () 250 mls @ 15 mls/hr IV .[id number] PRN PRN Reason: Additional IVPB Infusion Heparin Sodium/Dextrose () 25,000 units in 250 mls @ 14 mls/hr IV .[id number] [facility]; Protocol Last Admin: 01/03/21 13:25 Dose: 1,500 units/hr, 15 mls/hr Documented by: Insulin Human Lispro (Insulin Lispro 100 Unit/Ml Insuln.Pen) 0 unit SC [facility]; Protocol Last Admin: 01/03/21 13:23 Dose: 2 units Documented by: Levothyroxine Sodium (Levothyroxine 100 Mcg Tablet) 100 mcg PO DAILY@0600 [facility] Last Admin: 01/03/21 05:36 Dose: 100 mcg Documented by: Losartan Potassium (Losartan Potassium 25 Mg Tablet) 25 mg PO DAILY [facility] Last Admin: 01/03/21 09:43 Dose: 25 mg Documented by: Melatonin (Melatonin 3 Mg Tablet) 3 mg PO QHS PRN PRN PRN Reason: INSOMNIA Metoprolol Succinate (Metoprolol(Xl)Succ 100 Mg Tablet) 100 mg PO QHS [facility] Last Admin: 01/03/21 09:51 Dose: 100 mg Documented by: Montelukast Sodium (Montelukast 10 Mg Tablet) 10 mg PO QHS [facility] Morphine Sulfate (Morphine 4 Mg/Ml Syringe) 4 mg IV Q3H PRN PRN PRN Reason: Pain Score 6-10 Last Admin: 01/03/21 12:04 Dose: 4 mg Documented by: Ondansetron HCl (Ondansetron 4 Mg/2 Ml Vial) 4 mg IV Q8H PRN PRN PRN Reason: NAUSEA/VOMITING Last Admin: 01/03/21 12:04 Dose: 4 mg Documented by: Oxycodone HCl (Oxycodone 5 Mg Tablet) 5 mg PO Q4H PRN PRN PRN Reason: Pain Score 4-5 Last Admin: 01/03/21 09:51 Dose: 5 mg Documented by: Pantoprazole Sodium (Pantoprazole Sodium 20 Mg Tablet) 20 mg PO QHS [facility] Prochlorperazine Edisylate (Prochlorperazine 10 Mg/2 Ml Vial) 5 mg IV Q4H PRN PRN PRN Reason: Breakthrough Nausea/Vomiting Sodium Chloride (0.9% Saline Lock 10 Ml Syringe) 10 - 40 ml IV UD PRN PRN Reason: SALINE FLUSH Warfarin Sodium (Warfarin 5 Mg Tablet) 10 mg PO DAILY@1700 [facility] STROKE Vital Signs/Narrative: Vital Signs Pulse 01/03/21 12:52 79 Assessment/Plan This patient was seen in conjunction with Arvin Ortiz PA-C. I have independently interviewed and examined the patient and reviewed pertinent historical, laboratory, and other data. Please refer to Arvin Ortiz PA-C's note for details of this patient's presentation, findings, and recommendations. I have reviewed Arvin Ortiz PA-C's note and concur with documented findings. 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 Patient was started on heparin admitted to a monitored bed for subsequent evaluation Physical Examination: GENERAL: cooperative HEENT: Atraumatic; EYES; Anicteric, Normal Conjunctiva NECK; supple, normal thyroid, RESPIRATORY: Diminished to auscultation CARDIOVASCULAR: Regular S1 S2, GI: soft, normoactive bowel sounds, : No Renal angle tenderness; EXTREMITIES: No edema, no clubbing, MUSCULOSKELETAL: no muscle waisting NEURO: Awake; no lateralizing signs. SKIN: No Rash PSYCH; Flat affect Assessment: . Right flank pain secondary to right renal cortical infarct 2. History of bicuspid valve status post aortic valve replacement systemic anticoagulation 3. Essential hypertension 4. Obesity with BMI of 33.9 5. Polycystic ovarian disease 6. Hypothyroidism 7. Diabetes mellitus type 2 8. Dyslipidemia 9. DVT prophylaxis Recommendations: 1. I have discussed the results of my overview and impressions with the patient 2. Options for management were reviewed Clinical Impression(s) from Imaging Studies Abdomen/Pelvis CT 01/02/21 16:48 IMPRESSION: Enlarged fatty liver. Nonobstructing left renal punctate calculi. Electronically Signed: Jean-Pierre Cobb DO at 17:32 EDT Tel [phone], Service support , Abdomen/Pelvis CT 01/02/21 20:31 IMPRESSION: Enlarged fatty liver. Diminished cortical enhancement of the right kidney right kidney. Cortical infarct cannot be excluded. Electronically Signed: Jean-Pierre Cobb DO at 21:49 EDT Tel [phone], Service support , Renal Ultrasound 01/03/21 09:31 IMPRESSION: Focal area of heterogeneous echotexture of the anterior superior cortex of the right kidney as described. This most likely corresponds to the recent CT findings. Electronically Signed: Rhys Chavez MD at 15:14 EDT , Service support , Inpatient E&M: [id number] Init Hosp L3
[2021-01-03 17:45] LABS: Bedside Glucose 226 mg/dL (70-110)
[2021-01-03 18:37] LABS: Partial Thromboplast Time 50.9 Seconds (24.1-36.2)
[2021-01-03] MEDS: Docusate Sodium 100 MG Capsule PO (19:42)
[2021-01-03] MEDS: Montelukast 10 MG Tablet PO (22:20)
[2021-01-03] MEDS: Aspirin 81 MG TAB.CHEW PO (22:20)
[2021-01-03] MEDS: Pantoprazole Sodium 20 MG Tablet PO (22:20)
[2021-01-03] MEDS: Acetaminophen 325 MG Tablet 650 MG PO (22:23)
[2021-01-03 22:36] LABS: Bedside Glucose 263 mg/dL (70-110)
[2021-01-04] VITALS (11 sets, daily range): BP systolic 116–150; BP diastolic 64–87; PULSE 79–102; RESP 14–17; TEMP 36.7–37.7; O2SAT 95–97
[2021-01-04 01:19] LABS: Partial Thromboplast Time 61.5 Seconds (24.1-36.2)
[2021-01-04] MEDS: oxyCODONE 5 MG Tablet PO ×5 (02:15→20:33)
[2021-01-04] MEDS: HEPARIN/D5w 25,000 UNITS 25,000 UNITS/250 ML IV.SOLN. 16 UNITS IV ×2 (04:56→20:40)
[2021-01-04] MEDS: Levothyroxine 100 MCG Tablet PO (04:58)
[2021-01-04] MEDS: Acetaminophen 325 MG Tablet 650 MG PO (04:58)
[2021-01-04] MEDS: Insulin Lispro 100 UNIT/ML INSULN.PEN SC ×4 (06:30→22:25)
[2021-01-04 06:41] LABS: Bedside Glucose 272 mg/dL (70-110)
[2021-01-04 07:08] LABS: Absolute Lymphocyte Count 1.56 X10^3/uL (0.83-4.51); Absolute Neutrophil Count 10.9 X10^3/uL (2.0-7.7); Basophil# 0.05 X10^3/uL; Basophil% 0.4 % (0-1); Eosinophil# 0.07 X10^3/uL; Eosinophils% 0.5 % (0-5); Hematocrit 40.5 % (37-47); Hemoglobin 13.6 g/dL (12.0-15.0); Lymphocyte # 1.56 X10^3/ul (0.83-4.51); Lymphocyte % 11.2 % (19-41); Mean Corp Hgb Conc 33.6 g/dL (32-36); Mean Corpuscular Hgb 31.4 pg (27.0-32.0); Mean Corpuscular Volume 93.5 fL (81-99); Mean Platelet Vol. 10.3 fl (6.2-12.0); Monocyte% 8.6 % (0-10); NRBC Flagged by Analyzer 0 % (0-5); Neutrophil % 78.4 % (47-70); Platelet Count 225 K/mm3 (150-450); RBC Distribution Width CV 12.2 % (11.6-14.6); RBC Distribution Width SD 42.4 fl (35.1-43.9); Red Blood Count 4.33 M/mm3 (4.2-5.4); White Blood Count 13.9 K/mm3 (4.4-11.0)
[2021-01-04 07:17] LABS: Partial Thromboplast Time 58.1 Seconds (24.1-36.2)
[2021-01-04 07:28] LABS: Anion Gap 5 (5-15); BUN 12 mg/dL (7-18); BUN/Creat Ratio 8.7 RATIO (10-20); Calcium,Total 8.9 mg/dL (8.5-10.1); Chloride 96 mmol/L (98-107); Creatinine, Serum 1.38 mg/dL (0.55-1.02); EST Glomerular Filtration Rate 46 mL/min (>60); Est Glom Filt Rate - Afr Amer 56 mL/min (>60); Estimated Creatinine Clearance 54.81 ml/min; Glucose 250 mg/dL (74-106); Potassium 3.8 mmol/L (3.5-5.1); Sodium Level 132 mmol/L (136-145)
[2021-01-04] MEDS: Ascorbic Acid 500 MG Tablet PO (08:15)
[2021-01-04] MEDS: Losartan Potassium 25 MG Tablet PO (08:15)
[2021-01-04] MEDS: Morphine 4 MG/ML Syringe IV (08:15)
[2021-01-04 10:25] LABS: International Normalized Ratio 1.3
--- NOTE | 2021-01-04 10:42 | ECHOD_ITS ---
Reason For Study: AVR, CORTICAL INFARCT Procedure This was a 2D Doppler, Color Flow transthoracic echocardiogram. Exam performed portable in patient room. Left Ventricle Normal LV size. The estimated ejection fraction is 55 %. Unable to assess diastolic dysfunction. septal hypokinesis likely related to prior valve surgery. Right Ventricle Normal RV size. Normal systolic function. Atria Normal left atrium. Normal right atrium. No doppler evidence for ASD. Mitral Valve There is no mitral valve stenosis. No mitral valve insufficiency. Tricuspid Valve There is no tricuspid stenosis. Unable to estimate RV systolic pressure due to inadequate jet, pulmonary artery pressure probably normal. Aortic Valve There is no aortic stenosis. No aortic valve insufficiency. Stable appearing mechanical aortic valve apparatus. Pulmonic Valve There is no pulmonic valvular stenosis. No pulmonic valve insufficiency. Great Vessels Normal aortic root. Pericardium/Pleural No pericardial effusion. MMode/2D Measurements & Calculations LVIDd: 4.7 cm IVSd: 1.6 cm Ao root diam: 3.2 cm LVIDs: 3.4 cm LVPWd: 1.3 cm RVDd: 3.0 cm FS: 27.3 % LAV(MOD-bp): 53.5 ml LA A4 area: 19.9 cm2 LA dimension(2D): 4.4 cm LAV(MOD-bp) Indexed: 25.6 ml/m2 LAV(MOD-sp2): 45.1 ml LAV(MOD-sp4): 63.4 ml RA A4 area: 17.2 cm2 Time Measurements MV dec time: 0.14 sec Doppler Measurements & Calculations MV E max josr: 78.5 cm/sec Lat Peak E' Josr: 6.5 cm/sec Med Peak E' Josr: 4.1 cm/sec MV A max josr: 84.5 cm/sec E/E' lat: 12.0 E/E' med: 19.3 MV E/A: 0.93 Ao V2 max: 150.5 cm/sec LV V1 max: 98.2 cm/sec PA V2 max: 131.2 cm/sec Ao max P.1 mmHg LV V1 max P.9 mmHg ECHO/Echo Complete Interpretation Summary The estimated ejection fraction is 55 %. septal hypokinesis likely related to prior valve surgery Stable appearing mechanical aortic valve apparatus. Ordering Physician: Kimberly Ann Referring Physician: Jonas Sweet Performed By: Jackeline Cronin, KARIE, RVT
[2021-01-04] MEDS: Acetaminophen 500 MG Tablet 1000 MG PO ×2 (11:03→17:15)
--- NOTE | 2021-01-04 11:21 | PN_ITS ---
<Kimberly Ann AIRPLANE NAVIGATOR - Last Filed: 01/04/21 11:37> Patient Problems: Active and Suspected Problems (Last Reviewed 01/02/21 @ 23:58 by Ayesha olivarez NP-C) Kidney infarction (Acute) Subjective: Patient seen and examined. Continues to have significant right flank pain. Denies other symptoms or complaints. - Physical Exam Vitals/I&O's: Vital Signs Temp Pulse Resp BP Pulse Ox 98.7 F 85 17 150/87 H 96 01/04/21 08:00 01/04/21 08:00 01/04/21 08:00 01/04/21 08:00 01/04/21 08:00 Oxygen Delivery Method Room Air Weight: 216 lb 7.903 oz Body Mass Index (BMI) 33.9 Finger Stick Blood Glucose 206 Intake and Output for Last 24 Hours 01/02/21 01/03/21 01/04/21 23:59 23:59 23:59 Intake Total 2330.85 / 2330.85 159.73 / 159.73 Output Total 1100 / 1100 Balance 1230.85 / 1230.85 159.73 / 159.73 General: Alert, Oriented x3, Cooperative, - - Appears uncomfortable HEENT: Atraumatic, PERRLA, EOMI, Normocephalic Neck: Supple, No JVD, Negative Carotid Bruits Lungs: Clear to auscultation, Normal air movement Cardiovascular: Regular rate, No murmurs Abdomen: Bowel Sounds Present, Soft, Non Tender, Non-Distended Extremities: No clubbing, No cyanosis, No edema, Capillary Refill Less than 3 Seconds Skin: No rashes, No breakdown Musculoskeletal: No Tenderness to Palpation of Joints or Extremities Neurological: Cranial nerves II-XII grossly intact, Neuro grossly intact Psych/Mental Status: Normal Affect, Appropriate Laboratory Results 01/03/21 11:20: APTT 48.8 H 01/03/21 13:21: POC Glucose 229 H 01/03/21 17:14: POC Glucose 226 H 01/03/21 18:03: APTT 50.9 H 01/03/21 22:17: POC Glucose 263 H 01/04/21 01:00: APTT 61.5 H 01/04/21 06:24: POC Glucose 272 H 01/04/21 06:52: WBC 13.9 H, RBC 4.33, Hgb 13.6, Hct 40.5, MCV 93.5, MCH 31.4, MCHC 33.6, RDW Std Deviation 42.4, RDW Coeff of Darren 12.2, Plt Count 225, MPV 10.3, Immature Gran % (Auto) 0.900, Neut % (Auto) 78.4 H, Lymph % (Auto) 11.2 L, Vilas % (Auto) 8.6, Eos % (Auto) 0.5, Baso % (Auto) 0.4, Absolute Neuts (auto) 10.9 H, Absolute Lymphs (auto) 1.56, Nucleated RBC % 0 01/04/21 06:52: Sodium 132 L, Potassium 3.8, Chloride 96 L, Carbon Dioxide 31.0, Anion Gap 5, BUN 12, Creatinine 1.38 H, Estim Creat Clear Calc 54.81, Est GFR (MDRD) Af Amer 56 L, Est GFR (MDRD) Non-Af 46 L, BUN/Creatinine Ratio 8.7 L, Glucose 250 H, Calcium 8.9 01/04/21 06:52: APTT 58.1 H 01/04/21 06:52: PT Pending, INR Pending Current Medications Acetaminophen (Acetaminophen 500 Mg Tablet) 1,000 mg PO Q8H [facility] Last Admin: 01/04/21 11:03 Dose: 1,000 mg Documented by: Ascorbic Acid (Ascorbic Acid 500 Mg Tablet) 500 mg PO DAILY [facility] Last Admin: 01/04/21 08:15 Dose: 500 mg Documented by: Aspirin (Aspirin 81 Mg Tab.Chew) 81 mg PO QHS [facility] Last Admin: 01/03/21 22:20 Dose: 81 mg Documented by: Docusate Sodium (Docusate Sodium 100 Mg Capsule) 100 mg PO BID PRN PRN PRN Reason: Constipation Last Admin: 01/03/21 19:42 Dose: 100 mg Documented by: Ferrous Sulfate (Ferrous Sulfate 325 Mg Tablet) 325 mg PO QODAY@1200 [facility] Last Admin: 01/03/21 13:33 Dose: Not Given Documented by: Heparin Sodium (Porcine) (Heparin Injection (Vial) 5,000 Unit/Ml Vial) 0 unit IV UD PRN; Protocol PRN Reason: dose adjustment Last Admin: 01/03/21 12:03 Dose: 1,000 unit Documented by: Sodium Chloride () 250 mls @ 15 mls/hr IV .[id number] PRN PRN Reason: Saline Flush Sodium Chloride () 250 mls @ 15 mls/hr IV .[id number] PRN PRN Reason: Additional IVPB Infusion Heparin Sodium/Dextrose () 25,000 units in 250 mls @ 14 mls/hr IV .[id number] [facility]; Protocol Last Admin: 01/04/21 04:56 Dose: 1,600 units/hr, 16 mls/hr Documented by: Insulin Human Lispro (Insulin Lispro 100 Unit/Ml Insuln.Pen) 0 unit SC [facility]; Protocol Last Admin: 01/04/21 11:09 Dose: 4 units Documented by: Levothyroxine Sodium (Levothyroxine 100 Mcg Tablet) 100 mcg PO DAILY@0600 [facility] Last Admin: 01/04/21 04:58 Dose: 100 mcg Documented by: Losartan Potassium (Losartan Potassium 25 Mg Tablet) 25 mg PO DAILY [facility] Last Admin: 01/04/21 08:15 Dose: 25 mg Documented by: Melatonin (Melatonin 3 Mg Tablet) 3 mg PO QHS PRN PRN PRN Reason: INSOMNIA Metoprolol Succinate (Metoprolol(Xl)Succ 100 Mg Tablet) 100 mg PO QHS [facility] Last Admin: 01/03/21 09:51 Dose: 100 mg Documented by: Montelukast Sodium (Montelukast 10 Mg Tablet) 10 mg PO QHS [facility] Last Admin: 01/03/21 22:20 Dose: 10 mg Documented by: Morphine Sulfate (Morphine 4 Mg/Ml Syringe) 4 mg IV Q3H PRN PRN PRN Reason: Pain Score 6-10 Last Admin: 01/04/21 08:15 Dose: 4 mg Documented by: Ondansetron HCl (Ondansetron 4 Mg/2 Ml Vial) 4 mg IV Q8H PRN PRN PRN Reason: NAUSEA/VOMITING Last Admin: 01/03/21 12:04 Dose: 4 mg Documented by: Oxycodone HCl (Oxycodone 5 Mg Tablet) 5 - 10 mg PO Q4H PRN PRN PRN Reason: Pain Score 4-5 Last Admin: 01/04/21 11:03 Dose: 10 mg Documented by: Pantoprazole Sodium (Pantoprazole Sodium 20 Mg Tablet) 20 mg PO QHS [facility] Last Admin: 01/03/21 22:20 Dose: 20 mg Documented by: Prochlorperazine Edisylate (Prochlorperazine 10 Mg/2 Ml Vial) 5 mg IV Q4H PRN PRN PRN Reason: Breakthrough Nausea/Vomiting Sodium Chloride (0.9% Saline Lock 10 Ml Syringe) 10 - 40 ml IV UD PRN PRN Reason: SALINE FLUSH Warfarin Sodium (Warfarin 5 Mg Tablet) 10 mg PO DAILY@1700 [facility] Last Admin: 01/03/21 17:19 Dose: 10 mg Documented by: Medical Necessity - Tobacco Use Smoking Status: Never smoker Tobacco Use: Non-smoker Assessment/Plan All Active Problems (Last Reviewed 01/02/21 @ 23:58 by ARIANNE Delcid) Thoracic neuritis (Acute) Segmental and somatic dysfunction of thoracic region (Acute) Kidney infarction (Acute) 1. 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 On heparin drip. INR pending. As needed pain regimen. Obtain echocardiogram. If pain remains uncontrolled, may consider transfer for vascular evaluation. 2. History of bicuspid valve status post aortic valve replacement-history of AVR x3, most recently winter 2019. Will repeat echo. 3. Hypertension-stable, continue losartan, metoprolol. 4. Hyperlipidemia-not on statin, outpatient follow-up. 5. PCOS-On Metformin, held. 6. Obesity-encouraged diet and lifestyle modifications. 7. Type 2 diabetes mellitus-oral regimen on hold. Accu-Cheks with sliding scale insulin. 8. Hypothyroidism-continue Synthroid. DVT prophylaxis- Heparin gtt, coumadin This patient was seen by ARIANNE Bardales under the supervision of Dr. Cuellar. <Topher Cuellar - Last Filed: 01/04/21 12:41> - Physical Exam Vitals/I&O's: Vital Signs Temp Pulse Resp BP Pulse Ox 98.7 F 91 17 150/87 H 96 01/04/21 08:00 01/04/21 11:45 01/04/21 08:00 01/04/21 08:00 01/04/21 08:00 Oxygen Delivery Method Room Air Weight: 98.2 kg Body Mass Index (BMI) 33.9 Finger Stick Blood Glucose 206 Intake and Output for Last 24 Hours 01/02/21 01/03/21 01/04/21 23:59 23:59 23:59 Intake Total 2330.85 / 2330.85 639.73 / 639.73 Output Total 1100 / 1100 Balance 1230.85 / 1230.85 639.73 / 639.73 Laboratory Results 01/03/21 13:21: POC Glucose 229 H 01/03/21 17:14: POC Glucose 226 H 01/03/21 18:03: APTT 50.9 H 01/03/21 22:17: POC Glucose 263 H 01/04/21 01:00: APTT 61.5 H 01/04/21 06:24: POC Glucose 272 H 01/04/21 06:52: WBC 13.9 H, RBC 4.33, Hgb 13.6, Hct 40.5, MCV 93.5, MCH 31.4, MCHC 33.6, RDW Std Deviation 42.4, RDW Coeff of Darren 12.2, Plt Count 225, MPV 10.3, Immature Gran % (Auto) 0.900, Neut % (Auto) 78.4 H, Lymph % (Auto) 11.2 L, Vilas % (Auto) 8.6, Eos % (Auto) 0.5, Baso % (Auto) 0.4, Absolute Neuts (auto) 10.9 H, Absolute Lymphs (auto) 1.56, Nucleated RBC % 0 01/04/21 06:52: Sodium 132 L, Potassium 3.8, Chloride 96 L, Carbon Dioxide 31.0, Anion Gap 5, BUN 12, Creatinine 1.38 H, Estim Creat Clear Calc 54.81, Est GFR (MDRD) Af Amer 56 L, Est GFR (MDRD) Non-Af 46 L, BUN/Creatinine Ratio 8.7 L, Glucose 250 H, Calcium 8.9 01/04/21 06:52: APTT 58.1 H 01/04/21 06:52: PT 15.0 H, INR 1.3 01/04/21 06:52: Magnesium 1.7 01/04/21 11:06: POC Glucose 309 H Current Medications Acetaminophen (Acetaminophen 500 Mg Tablet) 1,000 mg PO Q8H [facility] Last Admin: 01/04/21 11:03 Dose: 1,000 mg Documented by: Ascorbic Acid (Ascorbic Acid 500 Mg Tablet) 500 mg PO DAILY [facility] Last Admin: 01/04/21 08:15 Dose: 500 mg Documented by: Aspirin (Aspirin 81 Mg Tab.Chew) 81 mg PO QHS [facility] Last Admin: 01/03/21 22:20 Dose: 81 mg Documented by: Docusate Sodium (Docusate Sodium 100 Mg Capsule) 100 mg PO BID PRN PRN PRN Reason: Constipation Last Admin: 01/03/21 19:42 Dose: 100 mg Documented by: Ferrous Sulfate (Ferrous Sulfate 325 Mg Tablet) 325 mg PO QODAY@1200 [facility] Last Admin: 01/03/21 13:33 Dose: Not Given Documented by: Heparin Sodium (Porcine) (Heparin Injection (Vial) 5,000 Unit/Ml Vial) 0 unit IV UD PRN; Protocol PRN Reason: dose adjustment Last Admin: 01/03/21 12:03 Dose: 1,000 unit Documented by: Sodium Chloride () 250 mls @ 15 mls/hr IV .[id number] PRN PRN Reason: Saline Flush Sodium Chloride () 250 mls @ 15 mls/hr IV .[id number] PRN PRN Reason: Additional IVPB Infusion Heparin Sodium/Dextrose () 25,000 units in 250 mls @ 14 mls/hr IV .[id number] [facility]; Protocol Last Admin: 01/04/21 04:56 Dose: 1,600 units/hr, 16 mls/hr Documented by: Insulin Human Lispro (Insulin Lispro 100 Unit/Ml Insuln.Pen) 0 unit SC ACHS [facility]; Protocol Last Admin: 01/04/21 11:09 Dose: 4 units Documented by: Levothyroxine Sodium (Levothyroxine 100 Mcg Tablet) 100 mcg PO DAILY@0600 [facility] Last Admin: 01/04/21 04:58 Dose: 100 mcg Documented by: Losartan Potassium (Losartan Potassium 25 Mg Tablet) 25 mg PO DAILY [facility] Last Admin: 01/04/21 08:15 Dose: 25 mg Documented by: Melatonin (Melatonin 3 Mg Tablet) 3 mg PO QHS PRN PRN PRN Reason: INSOMNIA Metoprolol Succinate (Metoprolol(Xl)Succ 100 Mg Tablet) 100 mg PO QHS [facility] Last Admin: 01/03/21 09:51 Dose: 100 mg Documented by: Montelukast Sodium (Montelukast 10 Mg Tablet) 10 mg PO QHS [facility] Last Admin: 01/03/21 22:20 Dose: 10 mg Documented by: Morphine Sulfate (Morphine 4 Mg/Ml Syringe) 4 mg IV Q3H PRN PRN PRN Reason: Pain Score 6-10 Last Admin: 01/04/21 08:15 Dose: 4 mg Documented by: Ondansetron HCl (Ondansetron 4 Mg/2 Ml Vial) 4 mg IV Q8H PRN PRN PRN Reason: NAUSEA/VOMITING Last Admin: 01/03/21 12:04 Dose: 4 mg Documented by: Oxycodone HCl (Oxycodone 5 Mg Tablet) 5 - 10 mg PO Q4H PRN PRN PRN Reason: Pain Score 4-5 Last Admin: 01/04/21 11:03 Dose: 10 mg Documented by: Pantoprazole Sodium (Pantoprazole Sodium 20 Mg Tablet) 20 mg PO QHS [facility] Last Admin: 01/03/21 22:20 Dose: 20 mg Documented by: Prochlorperazine Edisylate (Prochlorperazine 10 Mg/2 Ml Vial) 5 mg IV Q4H PRN PRN PRN Reason: Breakthrough Nausea/Vomiting Sodium Chloride (0.9% Saline Lock 10 Ml Syringe) 10 - 40 ml IV UD PRN PRN Reason: SALINE FLUSH Warfarin Sodium (Warfarin 5 Mg Tablet) 10 mg PO DAILY@1700 [facility] Last Admin: 01/03/21 17:19 Dose: 10 mg Documented by: Assessment/Plan This patient was seen in conjunction with ARIANNE Bardales. I have independently interviewed and examined the patient and reviewed pertinent historical, laboratory, and other data. Please refer to NATALIE Bardales's note for details of this patient's presentation, findings, and recommendations. I have reviewed ARIANNE Bardales's note and concur with documented findings. 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 Patient was started on heparin admitted to a monitored bed for subsequent evaluation 01/04/2021; patient seen still complains of significant right flank pain. 2D echo was ordered to evaluate patient's valve. Physical Examination: GENERAL: cooperative HEENT: Atraumatic; EYES; Anicteric, Normal Conjunctiva NECK; supple, normal thyroid, RESPIRATORY: Diminished to auscultation CARDIOVASCULAR: Regular S1 S2, GI: soft, normoactive bowel sounds, : No Renal angle tenderness; EXTREMITIES: No edema, no clubbing, MUSCULOSKELETAL: no muscle waisting NEURO: Awake; no lateralizing signs. SKIN: No Rash PSYCH; Flat affect Assessment: 1. Right flank pain secondary to right renal cortical infarct 2. History of bicuspid valve status post aortic valve replacement systemic anticoagulation 3. Essential hypertension 4. Obesity with BMI of 33.9 5. Polycystic ovarian disease 6. Hypothyroidism 7. Diabetes mellitus type 2 8. Dyslipidemia 9. DVT prophylaxis Recommendations: 1. I have discussed the results of my overview and impressions with the patient 2. Options for management were reviewed Inpatient E&M: [id number] Subs Hosp L2
[2021-01-04 11:55] LABS: Bedside Glucose 309 mg/dL (70-110)
[2021-01-04 12:11] LABS: Magnesium 1.7 mg/dL (1.6-2.6)
--- NOTE | 2021-01-04 16:45 | NURSING ---
Dr. Pena in to see patient.
[2021-01-04 17:20] LABS: Bedside Glucose 314 mg/dL (70-110)
--- NOTE | 2021-01-04 18:07 | CON.PCM_ITS ---
Problem List (1) Kidney infarction Status: Acute Reason for Consult Date of Consultation: 01/04/21 History of Present Illness: The patient is a 35 year old F been asked to see today by Kimberly Ann CNP and a written copy my surgical consult recommendations will return to her. The patient has a right renal infarction and surgical consultation is requested. The patient reports a history of congenital bicuspid aortic valve. In 2006 she had a combined bioprosthetic aortic valve placed as well as a ascending aortic aneurysm repaired with a Dacron graft. Secondary to deterioration of the valve 2012 she had a repeat bioprosthetic valve placed. Then again June 2020 because of valve deterioration she had a On-X valve placed. By report this is a newer valve requiring less long-term anticoagulation. Unfortunate however August 2020 she developed COVID-19. Then apparently because of ongoing anemia as early as October 2000 she underwent a hysterectomy. Subsequent to that procedure she had vaginal bleeding. She could not maintain her appropriate valve anticoagulation and was instructed to allow the INR from her Coumadin to drift lower. On January 02 she had acute onset of right flank pain. She presented to the emergency room where noncontrasted CT failed to demonstrate kidney stone. Because she knew of someone who had incurred a renal infarction she requested a contrasted scan be obtained. A contrasted scan was obtained sa and the official interpretation suggest diminished cortical enhancement of the right kidney. Cortical infarct cannot be excluded. On January 03, 2021 a renal ultrasound was obtained. The interpretation of that study was focal area of heterogenous echotexture of the anterior superior cortex of the right kidney. Most likely corresponds to the recent CT findings. On her presentation her INR was 1.3.. On her presentation her BUN was 16 and her creatinine 1.18. Currently her BUN is 12 and creatinine 1.38. On a heparin drip her current PTT is 58.1. Glucose is running high at 314. She had an echocardiogram today suggesting an ejection fraction of 55% with septal hypokinesis likely related to prior valve surgery. The mechanical aortic valve appeared stable. Additionally on her presentation her white blood cell count was 8 and today it is 13.9 There is concern because she persists in having significant right flank pain. There was a question as to whether thrombus could be mechanically removed from the right kidney. My understanding is that her responsible physicians from [facility] were contacted when she was in the emergency room and they were advised of her presentation and they suggested that the patient be hospitalized locally at [facility] and treated with anticoagulation and pain medication. My understanding is that it was suggested that no difference in therapy would be offered at a tertiary center Past Medical History Past Medical History (Chronic Problems): Chronic Problems (Last Reviewed 01/02/21 @ 23:58 by Ayesha Sweet NP-C) Aortic stenosis due to bicuspid aortic valve (Chronic) Hypothyroidism (Chronic) Type 2 diabetes mellitus (Chronic) Hypertension (Chronic) Medical History: Medical History (Last Reviewed 01/02/21 @ 23:58 by Ayesha Sweet NP-C) Asthma J45.909 Breast lump N63.0 Chronic headaches R51 GERD (gastroesophageal reflux disease) K21.9 Gallstones K80.20 Goiter E04.9 H/O transfusion of whole blood Z92.89 Heart murmur R01.1 High cholesterol E78.00 High triglycerides E78.1 Hypothyroidism E03.9 Polycystic ovary E28.2 Type 2 diabetes mellitus E11.9 Dx : 2013 Last exacerbation : DKA : never Hypoglycemic episode : never ER visit : never UTI (urinary tract infection) N39.0 Vision problem H54.7 heart catheterization HTN (hypertension) I10 Allergies adhesive tape Allergy (Unknown, Verified 01/02/21 16:34) Unknown Sulfa (Sulfonamide Antibiotics) Allergy (Verified 01/02/21 16:34) Rash Home Medications: Ambulatory Orders Medication Instructions Recorded metoprolol succinate 100 mg 100 mg PO QHS 09/23/18 capsule sprinkle, ext. release 24 hr Aspirin [Aspirin, Baby] 81 mg PO QHS #0 03/13/20 ascorbic acid (vitamin C) 500 mg 500 mg PO DAILY tab 07/07/20 tablet omeprazole 20 mg capsule,delayed 20 mg PO QHS #90 cap 07/25/20 release montelukast 10 mg tablet 10 mg PO QHS #90 tab 08/31/20 levothyroxine 100 mcg tablet 100 mcg PO QHS #90 tab 09/27/20 metformin 1,000 mg tablet 1,000 mg PO DAILY #90 tab 09/27/20 Chlorthalidone 25 mg PO DAILY 01/03/21 Ferrous Sulfate 325 mg PO QODAY 01/03/21 Liraglutide [Victoza] 1.8 mg SC DAILY 01/03/21 Losartan Potassium [Cozaar] 25 mg PO DAILY 01/03/21 Warfarin Sodium 8 mg PO DAILY 01/03/21 Surgical History: Surgical History (Last Reviewed 01/02/21 @ 23:59 by Ayesha Sweet, SKEIN Y[employer] DRIER-C) H/O aortic valve replacement Z95.2 x 2 H/O aortic valvuloplasty Z98.890 H/O wisdom tooth extraction K08.409 H/O: Z98.891 x 3 H/O: hysterectomy Z90.710 Hx of cholecystectomy Z90.49 Hx of tonsillectomy Z90.89 S/P aneurysm repair Z98.890, Z86.79 Surgical History: hysterectomy, - - aortic valve surgery Psychiatric History: No pertinent psych hx 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 Smoking Status: Never smoker Tobacco Use: Non-smoker - *Family History Maternal Family History: Family History (Last Reviewed 09/18/20 @ 09:39 by Megan Skelton) Grandmother Asthma Hypertension Grandfather Asthma Arthritis Cancer Diabetes Aunt Breast cancer Autoimmune disease Uncle Cancer Mother Diabetes Thyroid disorder Father Diabetes Sister Autoimmune disease Patient Problems: Active and Suspected Problems (Last Reviewed 01/02/21 @ 23:58 by Ayesha Sweet, S[employer]IN [employer] D[employer]ER-C) Kidney infarction (Acute) - Physical Exam Vitals/I&O's: Vital Signs Temp Pulse Resp BP Pulse Ox 99.9 F H 102 H 17 118/64 97 01/04/21 14:52 01/04/21 15:17 01/04/21 14:52 01/04/21 14:52 01/04/21 14:52 Oxygen Delivery Method Room Air Weight: 216 lb 7.903 oz Body Mass Index (BMI) 33.9 Finger Stick Blood Glucose 206 Intake and Output for Last 24 Hours 01/02/21 01/03/21 01/04/21 23:59 23:59 23:59 Intake Total 2330.85 / 2330.85 999.73 / 999.73 Output Total 1100 / 1100 Balance 1230.85 / 1230.85 999.73 / 999.73 Laboratory Results 01/03/21 18:03: APTT 50.9 H 01/03/21 22:17: POC Glucose 263 H 01/04/21 01:00: APTT 61.5 H 01/04/21 06:24: POC Glucose 272 H 01/04/21 06:52: WBC 13.9 H, RBC 4.33, Hgb 13.6, Hct 40.5, MCV 93.5, MCH 31.4, MCHC 33.6, RDW Std Deviation 42.4, RDW Coeff of Darren 12.2, Plt Count 225, MPV 10.3, Immature Gran % (Auto) 0.900, Neut % (Auto) 78.4 H, Lymph % (Auto) 11.2 L, Barber % (Auto) 8.6, Eos % (Auto) 0.5, Baso % (Auto) 0.4, Absolute Neuts (auto) 10.9 H, Absolute Lymphs (auto) 1.56, Nucleated RBC % 0 01/04/21 06:52: Sodium 132 L, Potassium 3.8, Chloride 96 L, Carbon Dioxide 31.0, Anion Gap 5, BUN 12, Creatinine 1.38 H, Estim Creat Clear Calc 54.81, Est GFR (MDRD) Af Amer 56 L, Est GFR (MDRD) Non-Af 46 L, BUN/Creatinine Ratio 8.7 L, Glucose 250 H, Calcium 8.9 01/04/21 06:52: APTT 58.1 H 01/04/21 06:52: PT 15.0 H, INR 1.3 01/04/21 06:52: Magnesium 1.7 01/04/21 11:06: POC Glucose 309 H 01/04/21 17:11: POC Glucose 314 H Current Medications Acetaminophen (Acetaminophen 500 Mg Tablet) 1,000 mg PO Q8H [facility] Last Admin: 01/04/21 17:15 Dose: 1,000 mg Documented by: Ascorbic Acid (Ascorbic Acid 500 Mg Tablet) 500 mg PO DAILY [facility] Last Admin: 01/04/21 08:15 Dose: 500 mg Documented by: Aspirin (Aspirin 81 Mg Tab.Chew) 81 mg PO QHS [facility] Last Admin: 01/03/21 22:20 Dose: 81 mg Documented by: Docusate Sodium (Docusate Sodium 100 Mg Capsule) 100 mg PO BID PRN PRN PRN Reason: Constipation Last Admin: 01/03/21 19:42 Dose: 100 mg Documented by: Ferrous Sulfate (Ferrous Sulfate 325 Mg Tablet) 325 mg PO QODAY@1200 [facility] Last Admin: 01/03/21 13:33 Dose: Not Given Documented by: Heparin Sodium (Porcine) (Heparin Injection (Vial) 5,000 Unit/Ml Vial) 0 unit IV UD PRN; Protocol PRN Reason: dose adjustment Last Admin: 01/03/21 12:03 Dose: 1,000 unit Documented by: Sodium Chloride () 250 mls @ 15 mls/hr IV .[id number] PRN PRN Reason: Saline Flush Sodium Chloride () 250 mls @ 15 mls/hr IV .[id number] PRN PRN Reason: Additional IVPB Infusion Heparin Sodium/Dextrose () 25,000 units in 250 mls @ 14 mls/hr IV .[id number] [facility]; Protocol Last Admin: 01/04/21 04:56 Dose: 1,600 units/hr, 16 mls/hr Documented by: Insulin Human Lispro (Insulin Lispro 100 Unit/Ml Insuln.Pen) 0 unit SC [facility]; Protocol Last Admin: 01/04/21 17:15 Dose: 5 units Documented by: Levothyroxine Sodium (Levothyroxine 100 Mcg Tablet) 100 mcg PO DAILY@0600 [facility] Last Admin: 01/04/21 04:58 Dose: 100 mcg Documented by: Losartan Potassium (Losartan Potassium 25 Mg Tablet) 25 mg PO DAILY [facility] Last Admin: 01/04/21 08:15 Dose: 25 mg Documented by: Melatonin (Melatonin 3 Mg Tablet) 3 mg PO QHS PRN PRN PRN Reason: INSOMNIA Metoprolol Succinate (Metoprolol(Xl)Succ 100 Mg Tablet) 100 mg PO QHS [facility] Last Admin: 01/03/21 09:51 Dose: 100 mg Documented by: Montelukast Sodium (Montelukast 10 Mg Tablet) 10 mg PO QHS [facility] Last Admin: 01/03/21 22:20 Dose: 10 mg Documented by: Morphine Sulfate (Morphine 4 Mg/Ml Syringe) 4 mg IV Q3H PRN PRN PRN Reason: Pain Score 6-10 Last Admin: 01/04/21 08:15 Dose: 4 mg Documented by: Ondansetron HCl (Ondansetron 4 Mg/2 Ml Vial) 4 mg IV Q8H PRN PRN PRN Reason: NAUSEA/VOMITING Last Admin: 01/03/21 12:04 Dose: 4 mg Documented by: Oxycodone HCl (Oxycodone 5 Mg Tablet) 5 - 10 mg PO Q4H PRN PRN PRN Reason: Pain Score 4-5 Last Admin: 01/04/21 16:01 Dose: 10 mg Documented by: Pantoprazole Sodium (Pantoprazole Sodium 20 Mg Tablet) 20 mg PO QHS [facility] Last Admin: 01/03/21 22:20 Dose: 20 mg Documented by: Prochlorperazine Edisylate (Prochlorperazine 10 Mg/2 Ml Vial) 5 mg IV Q4H PRN PRN PRN Reason: Breakthrough Nausea/Vomiting Sodium Chloride (0.9% Saline Lock 10 Ml Syringe) 10 - 40 ml IV UD PRN PRN Reason: SALINE FLUSH Warfarin Sodium (Warfarin 5 Mg Tablet) 10 mg PO DAILY@1700 [facility] Last Admin: 01/04/21 17:15 Dose: 10 mg Documented by: Assessment/Plan All Active Problems (Last Reviewed 01/02/21 @ 23:58 by Ayesha Sweet, S[employer]IN YARN DRIER-C) Thoracic neuritis (Acute) Segmental and somatic dysfunction of thoracic region (Acute) Kidney infarction (Acute) Today's consultation was a 50-minute [id number] and consultative review of history and imaging available. On my review of her admission CT scan there appears to be extensive infarction of the right kidney. The right renal artery is visualized and seems to be patent. There is overlap of the right renal vein making absolutely clear definition of the right renal artery less than perfect. The left renal artery and kidney fills normally. Her current ongoing working diagnosis is that she has had an embolic infarction of the right kidney related to her recent valve procedure. Please note that this is her third aortic valve procedure. With her first procedure she had a thoracic aneurysm repaired with a Dacron graft. She soon after the recent valve surgery incurred COVID-19. Then with in a reasonably short period of time of 4 to 6 weeks she underwent a hysterectomy and that was complicated by postoperative vaginal bleeding. This caused there to be recommendations to decrease her anticoagulation dosing. Based upon this history and presentation it seems overwhelmingly likely that the right renal infarction has occurred secondary to a cardiac source. I am personally impressed by the degree of infarction on her admission CT scan. Based upon that finding it is not unusual that she would be having persistent pain. She does have a slight elevation of her white blood cell count likely secondary to the tissue necrosis. I would rec ommend repeat urinalysis to assure that there is not a concomitant urinary tract infection. Although the right renal artery is failure well seen on the admission CTA I will obtain a renal duplex examination for confirmation. Regarding the right renal artery infarction that tissue damage has occurred and there is no mechanical means of removal. Fortunately she states that her vaginal bleeding stopped 2 weeks ago. She will likely need increased valvular anticoagulation and of course follow-up at [facility] regarding the recently placed valve and her history of Dacron graft placement for thoracic aneurysm. She has had an opportunity to ask and have questions answered. I appreciate the opportunity of assisting with her surgical care. Dominick Pena M.D., F.A.C.S.
--- NOTE | 2021-01-04 18:30 | RDU_ITS ---
Reason For Study: Right renal infarction Right Renal Artery Left Renal Artery Right renal artery ostium 74.5/19.9 Left renal artery ostium 168.2/46.4 RSV/EDV. PSV/EDV. Right renal artery proximal Left renal artery proximal PSV/EDV 75.9/22.7 PSV/EDV. 152.6/33.4 . Right renal artery mid 60.9/19.9 Left renal artery mid 118.9/33.4 PSV/EDV. PSV/EDV . Right renal artery distal Left renal artery distal 144.9/41.2 215.9/62.5 PSV/EDV. PSV/EDV. Right RAR 2.69. Left RAR 2.10. Right Renal Parenchyma Left Renal Parenchyma Upper Pole Medula 23.6/5.4 PSV/EDV. Left upper pole medulla 51.5/14.2 Right upper pole medulla EDR 0.23 . PSV/EDV . Right upper pole medulla R.I. Left upper pole medulla EDR 0.28 . 0.77 . Left upper pole medulla R.I. 0.72 . Upper Antony Cortx 20.3/4.9 PSV/EDV. UP Cortex 28.4/8.7 PSV/EDV. Right upper pole cortex EDR 0.24 . Left upper pole cortex EDR 0.31 . Right upper pole cortex R.I. 0.7 . Left upper pole cortex R.I. 0.69 . Right lower Pole medulla 36.8/9.8 Left lower Pole medulla 31.9/10.9 PSV/EDV . PSV/EDV . Right lower pole medulla EDR 0.27 . Left lower pole medulla EDR 0.34 . Right lower pole medulla R.I. Left lower pole medulla R.I. 0.66 . 0.73 . Lower Pole Cortx 26.3/8.5 PSV/EDV. Lower Pole Cortex 17.5/6.5 PSV/EDV. Left lower pole cortex EDR 0.32 . Right lower pole cortex EDR 0.37 . Left lower pole cortex R.I. 0.68 . Right lower pole cortex R.I. 0.63 . Left Renal Hilar Right Renal Hilar LT Hilar avg 63.4/20.6 PSV/EDV . Right Hilar avg 80.8/18.2 PSV/EDV. Left hilar acceleration time 50 Right hilar acceleration time 40 m/sec. m/sec. Left Renal Dimensions Right Renal Dimensions Left kidney size 11.17 cm . Right kidney size 12.17 cm . Left cortical dimension 1.60 cm . Right cortical dimension 1.85 cm . Aorta Proximal abdominal aorta 1.16 x 1.17 cm . Proximal abdominal aorta peak systolic velocity is 80.2 cm/sec . Unable to visualize distal aorta due to bowel gas. VL/Renal Artery Duplex Ultrasound Interpretation Summary Proximal abdominal aorta 1.16 x 1.17 cm in diameter Less than 60% stenosis bilateral renal arteries in the proximal and mid portion s and demonstrate patency Right renal length 12.17 cm Left renal length 11.17 cm Ordering Physician: Dominick Pena Referring Physician: Jonas Sweet Performed By: Laurie Tillman RVT
[2021-01-04] MEDS: Docusate Sodium 100 MG Capsule PO (20:34)
[2021-01-04] MEDS: Aspirin 81 MG TAB.CHEW PO (20:48)
[2021-01-04] MEDS: Montelukast 10 MG Tablet PO (20:48)
[2021-01-04] MEDS: Pantoprazole Sodium 20 MG Tablet PO (20:48)
[2021-01-04] MEDS: Metoprolol(XL)Succ 100 MG Tablet PO (20:48)
[2021-01-04 22:36] LABS: Bedside Glucose 306 mg/dL (70-110)
[2021-01-04 22:45] LABS: Bacteria 0 SEEN /hpf (None Seen); Color, Urine Yellow (Yellow); Glucose, Dipstick 1000 mg/dl (Normal); Ketone-Dipstick Negative (Negative); Leukocyte Esterase-Dipstick Negative /ul (Negative); Mucous, Urine 0 SEEN /hpf (<or=2+); Nitrite-Dipstick Negative (Negative); Occult Blood-Urine 150 /ul (Negative); Protein-Dipstick 30 mg/dl (Negative); Urine Bilirubin Dipstick Negative (Negative); Urine Clarity Clear (Clear); Urine Urobilinogen Normal (Normal)
[2021-01-04 22:51] LABS: Red Blood Cells-Urine 0-5 SEEN /hpf (0-5); Squamous Epithelial Cells - UA 0-5 SEEN /hpf (5-10); White Blood Cells 0-5 SEEN /hpf (0-5)
[2021-01-05] VITALS (10 sets, daily range): BP systolic 111–157; BP diastolic 58–79; PULSE 66–85; RESP 16–18; TEMP 36.4–37.1; O2SAT 96–100
[2021-01-05] MEDS: Acetaminophen 500 MG Tablet 1000 MG PO ×3 (02:26→17:55)
[2021-01-05] MEDS: oxyCODONE 5 MG Tablet PO ×4 (02:27→22:09)
--- NOTE | 2021-01-05 05:20 | PCM.PN.BLA ---
Progress Note Urinalysis unremarkable for cells. Urine glucose and serum glucose both elevated. Will need increased control. Dominick Pena M.D., F.A.C.S. STROKE Vital Signs/Narrative: Vital Signs Temp Pulse Resp BP Pulse Ox 01/05/21 03:00 98.8 F 75 16 133/69 H 99
[2021-01-05 05:34] LABS: Hematocrit 37.8 % (37-47); Hemoglobin 12.6 g/dL (12.0-15.0); Mean Corp Hgb Conc 33.3 g/dL (32-36); Mean Corpuscular Hgb 31.1 pg (27.0-32.0); Mean Corpuscular Volume 93.3 fL (81-99); Mean Platelet Vol. 10.4 fl (6.2-12.0); Platelet Count 206 K/mm3 (150-450); RBC Distribution Width CV 12.2 % (11.6-14.6); Red Blood Count 4.05 M/mm3 (4.2-5.4); White Blood Count 12.9 K/mm3 (4.4-11.0)
[2021-01-05 05:48] LABS: International Normalized Ratio 1.4; Prothrombin Time (Protime)PT. 16.8 SECONDS (11.7-14.9)
[2021-01-05 05:49] LABS: Partial Thromboplast Time 64.3 Seconds (24.1-36.2)
[2021-01-05 05:53] LABS: Anion Gap 4 (5-15); BUN 12 mg/dL (7-18); BUN/Creat Ratio 9.4 RATIO (10-20); Calcium,Total 8.9 mg/dL (8.5-10.1); Chloride 96 mmol/L (98-107); Creatinine, Serum 1.28 mg/dL (0.55-1.02); EST Glomerular Filtration Rate 50 mL/min (>60); Est Glom Filt Rate - Afr Amer 61 mL/min (>60); Estimated Creatinine Clearance 59.09 ml/min; Glucose 248 mg/dL (74-106); Potassium 3.4 mmol/L (3.5-5.1); Sodium Level 131 mmol/L (136-145)
[2021-01-05] MEDS: Levothyroxine 100 MCG Tablet PO (06:30)
[2021-01-05] MEDS: Docusate Sodium 100 MG Capsule PO ×2 (06:34→16:54)
[2021-01-05 06:46] LABS: Bedside Glucose 269 mg/dL (70-110)
[2021-01-05] MEDS: Ascorbic Acid 500 MG Tablet PO (10:25)
[2021-01-05] MEDS: Losartan Potassium 25 MG Tablet PO (10:25)
[2021-01-05] MEDS: Potassium Chloride Oral Tablet 20 MEQ 40 MEQ PO (10:25)
--- NOTE | 2021-01-05 11:09 | PCM.PN.BLA ---
Progress Note Renal duplex exam shows patent proximal and mid right renal artery with slight velocity elevation distally. This suggests as suspected that the proximal vessel is open. No intervention indicated at this time. Nataliya STROKE Vital Signs/Narrative: Vital Signs Temp Pulse Resp BP Pulse Ox 01/05/21 09:00 97.9 F 80 18 157/79 H 96
--- NOTE | 2021-01-05 11:33 | PCM.PROGNOTE ---
<Kimberly Ann VP [employer] - Last Filed: 01/05/21 11:43> Patient Problems: Active and Suspected Problems (Last Reviewed 01/02/21 @ 23:58 by Ayesha Sweet NP-C) Kidney infarction (Acute) Subjective: Patient seen and examined. Right flank pain improving. Denies new symptoms or complaints. Discussed test results and vascular consultation with patient. Nephrology consult pending. - Physical Exam Vitals/I&O's: Vital Signs Temp Pulse Resp BP Pulse Ox 97.9 F 80 18 157/79 H 96 01/05/21 09:00 01/05/21 09:00 01/05/21 09:00 01/05/21 09:00 01/05/21 09:00 Oxygen Delivery Method Room Air Weight: 216 lb 7.903 oz Body Mass Index (BMI) 33.9 Finger Stick Blood Glucose 206 Intake and Output for Last 24 Hours 01/03/21 01/04/21 01/05/21 23:59 23:59 23:59 Intake Total 2330.85 / 2330.85 1249.73 / 1249.73 Output Total 1100 / 1100 800 / 800 500 / 500 Balance 1230.85 / 1230.85 449.73 / 449.73 -500 / -500 General: Alert, Oriented x3, Cooperative HEENT: Atraumatic, PERRLA, EOMI, Normocephalic Neck: Supple, No JVD, Negative Carotid Bruits Lungs: Clear to auscultation, Normal air movement Cardiovascular: Regular rate, No murmurs Abdomen: Bowel Sounds Present, Soft, Non Tender Extremities: No clubbing, No cyanosis, No edema, Capillary Refill Less than 3 Seconds Skin: No rashes, No breakdown Musculoskeletal: No Tenderness to Palpation of Joints or Extremities Neurological: Cranial nerves II-XII grossly intact, Neuro grossly intact Psych/Mental Status: Normal Affect, Appropriate Laboratory Results 01/04/21 06:52: PT 15.0 H, INR 1.3 01/04/21 06:52: Magnesium 1.7 01/04/21 11:06: POC Glucose 309 H 01/04/21 17:11: POC Glucose 314 H 01/04/21 18:20: Urine Color Yellow, Urine Clarity Clear, Urine pH 6.0, Ur Specific [place] 1.010, Urine Protein 30 H, Urine Glucose (UA) 1000 H, Urine Ketones Negative, Urine Occult Blood 150 H, Urine Nitrite Negative, Urine Bilirubin Negative, Urine Urobilinogen Normal, Ur Leukocyte Esterase Negative, Urine RBC 0-5 SEEN, Urine WBC 0-5 SEEN, Ur Squamous Epith Cells 0-5 SEEN, Urine Bacteria 0 SEEN, Urine Mucus 0 SEEN 01/04/21 22:23: POC Glucose 306 H 01/05/21 04:50: PT 16.8 H, INR 1.4, APTT 64.3 H 01/05/21 04:50: WBC 12.9 H, RBC 4.05 L, Hgb 12.6, Hct 37.8, MCV 93.3, MCH 31.1, MCHC 33.3, RDW Std Deviation 42.0, RDW Coeff of Darren 12.2, Plt Count 206, MPV 10.4 01/05/21 04:50: Sodium 131 L, Potassium 3.4 L, Chloride 96 L, Carbon Dioxide 31.0, Anion Gap 4 L, BUN 12, Creatinine 1.28 H, Estim Creat Clear Calc 59.09, Est GFR (MDRD) Af Amer 61, Est GFR (MDRD) Non-Af 50 L, BUN/Creatinine Ratio 9.4 L, Glucose 248 H, Calcium 8.9 01/05/21 06:41: POC Glucose 269 H Current Medications Acetaminophen (Acetaminophen 500 Mg Tablet) 1,000 mg PO Q8H [facility] Last Admin: 01/05/21 10:27 Dose: 1,000 mg Documented by: Ascorbic Acid (Ascorbic Acid 500 Mg Tablet) 500 mg PO DAILY [facility] Last Admin: 01/05/21 10:25 Dose: 500 mg Documented by: Aspirin (Aspirin 81 Mg Tab.Chew) 81 mg PO QHS [facility] Last Admin: 01/04/21 20:48 Dose: 81 mg Documented by: Docusate Sodium (Docusate Sodium 100 Mg Capsule) 100 mg PO BID PRN PRN PRN Reason: Constipation Last Admin: 01/05/21 06:34 Dose: 100 mg Documented by: Ferrous Sulfate (Ferrous Sulfate 325 Mg Tablet) 325 mg PO QODAY@1200 [facility] Last Admin: 01/03/21 13:33 Dose: Not Given Documented by: Heparin Sodium (Porcine) (Heparin Injection (Vial) 5,000 Unit/Ml Vial) 0 unit IV UD PRN; Protocol PRN Reason: dose adjustment Last Admin: 01/03/21 12:03 Dose: 1,000 unit Documented by: Sodium Chloride () 250 mls @ 15 mls/hr IV .[id number] PRN PRN Reason: Saline Flush Sodium Chloride () 250 mls @ 15 mls/hr IV .[id number] PRN PRN Reason: Additional IVPB Infusion Heparin Sodium/Dextrose () 25,000 units in 250 mls @ 14 mls/hr IV .[id number] [facility]; Protocol Last Admin: 01/04/21 20:40 Dose: 1,600 units/hr, 16 mls/hr Documented by: Insulin Glargine (Insulin Glargine 100 Units/Ml Pen) 5 units SC BID [facility] Last Admin: 01/05/21 10:32 Dose: 5 u Documented by: Insulin Human Lispro (Insulin Lispro 100 Unit/Ml Insuln.Pen) 0 unit SC ACHS [facility]; Protocol Last Admin: 01/05/21 09:36 Dose: Not Given Documented by: Levothyroxine Sodium (Levothyroxine 100 Mcg Tablet) 100 mcg PO DAILY@0600 [facility] Last Admin: 01/05/21 06:30 Dose: 100 mcg Documented by: Losartan Potassium (Losartan Potassium 25 Mg Tablet) 25 mg PO DAILY [facility] Last Admin: 01/05/21 10:25 Dose: 25 mg Documented by: Melatonin (Melatonin 3 Mg Tablet) 3 mg PO QHS PRN PRN PRN Reason: INSOMNIA Metoprolol Succinate (Metoprolol(Xl)Succ 100 Mg Tablet) 100 mg PO QHS [facility] Last Admin: 01/04/21 20:48 Dose: 100 mg Documented by: Montelukast Sodium (Montelukast 10 Mg Tablet) 10 mg PO QHS [facility] Last Admin: 01/04/21 20:48 Dose: 10 mg Documented by: Morphine Sulfate (Morphine 4 Mg/Ml Syringe) 4 mg IV Q3H PRN PRN PRN Reason: Pain Score 6-10 Last Admin: 01/04/21 08:15 Dose: 4 mg Documented by: Ondansetron HCl (Ondansetron 4 Mg/2 Ml Vial) 4 mg IV Q8H PRN PRN PRN Reason: NAUSEA/VOMITING Last Admin: 01/03/21 12:04 Dose: 4 mg Documented by: Oxycodone HCl (Oxycodone 5 Mg Tablet) 5 - 10 mg PO Q4H PRN PRN PRN Reason: Pain Score 4-5 Last Admin: 01/05/21 10:32 Dose: 10 mg Documented by: Pantoprazole Sodium (Pantoprazole Sodium 20 Mg Tablet) 20 mg PO QHS [facility] Last Admin: 01/04/21 20:48 Dose: 20 mg Documented by: Prochlorperazine Edisylate (Prochlorperazine 10 Mg/2 Ml Vial) 5 mg IV Q4H PRN PRN PRN Reason: Breakthrough Nausea/Vomiting Sodium Chloride (0.9% Saline Lock 10 Ml Syringe) 10 - 40 ml IV UD PRN PRN Reason: SALINE FLUSH Warfarin Sodium (Warfarin 5 Mg Tablet) 10 mg PO DAILY@1700 [facility] Last Admin: 01/04/21 17:15 Dose: 10 mg Documented by: Medical Necessity - Tobacco Use Smoking Status: Never smoker Tobacco Use: Non-smoker Assessment/Plan All Active Problems (Last Reviewed 01/02/21 @ 23:58 by ARIANNE Delcid) Thoracic neuritis (Acute) Segmental and somatic dysfunction of thoracic region (Acute) Kidney infarction (Acute) 1. 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 On heparin drip. Trend INR. Increase Coumadin to 15 mg tonight. As needed pain regimen. Echocardiogram completed and demonstrates an EF of 55%, stable appearing mechanical aortic valve apparatus. Renal artery duplex ultrasound demonstrates patent renal arteries. Vascular surgery consulted who states there is no indication for intervention at this time. Nephrology consult pending. 2. History of bicuspid valve status post aortic valve replacement-history of AVR x3, most recently winter 2019. Echocardiogram demonstrates an EF of 55%, stable appearance of aortic valve apparatus. 3. Hypertension-stable, continue losartan, metoprolol. 4. Hyperlipidemia-not on statin, outpatient follow-up. 5. PCOS-On Metformin, held. 6. Obesity-encouraged diet and lifestyle modifications. 7. Type 2 diabetes mellitus-oral regimen on hold. Accu-Cheks with sliding scale insulin. Lantus 5 units twice daily. 8. Hypothyroidism-continue Synthroid. DVT prophylaxis- Heparin gtt, coumadin Discharge planning: Await therapeutic INR. This patient was seen by ARIANNE Bardales under the supervision of Dr. Cuellar. <Topher Cuellar - Last Filed: 01/05/21 12:56> - Physical Exam Vitals/I&O's: Vital Signs Temp Pulse Resp BP Pulse Ox 97.9 F 80 18 157/79 H 96 01/05/21 09:00 01/05/21 11:00 01/05/21 09:00 01/05/21 09:00 01/05/21 09:00 Oxygen Delivery Method Room Air Weight: 98.2 kg Body Mass Index (BMI) 33.9 Finger Stick Blood Glucose 206 Intake and Output for Last 24 Hours 01/03/21 01/04/21 01/05/21 23:59 23:59 23:59 Intake Total 2330.85 / 2330.85 1249.73 / 1249.73 610 / 610 Output Total 1100 / 1100 800 / 800 500 / 500 Balance 1230.85 / 1230.85 449.73 / 449.73 110 / 110 Laboratory Results 01/04/21 17:11: POC Glucose 314 H 01/04/21 18:20: Urine Color Yellow, Urine Clarity Clear, Urine pH 6.0, Ur Specific [place] 1.010, Urine Protein 30 H, Urine Glucose (UA) 1000 H, Urine Ketones Negative, Urine Occult Blood 150 H, Urine Nitrite Negative, Urine Bilirubin Negative, Urine Urobilinogen Normal, Ur Leukocyte Esterase Negative, Urine RBC 0-5 SEEN, Urine WBC 0-5 SEEN, Ur Squamous Epith Cells 0-5 SEEN, Urine Bacteria 0 SEEN, Urine Mucus 0 SEEN 01/04/21 22:23: POC Glucose 306 H 01/05/21 04:50: PT 16.8 H, INR 1.4, APTT 64.3 H 01/05/21 04:50: WBC 12.9 H, RBC 4.05 L, Hgb 12.6, Hct 37.8, MCV 93.3, MCH 31.1, MCHC 33.3, RDW Std Deviation 42.0, RDW Coeff of [place]ren 12.2, Plt Count 206, MPV 10.4 01/05/21 04:50: Sodium 131 L, Potassium 3.4 L, Chloride 96 L, Carbon Dioxide 31.0, Anion Gap 4 L, BUN 12, Creatinine 1.28 H, Estim Creat Clear Calc 59.09, Est GFR (MDRD) Af Amer 61, Est GFR (MDRD) Non-Af 50 L, BUN/Creatinine Ratio 9.4 L, Glucose 248 H, Calcium 8.9 01/05/21 06:41: POC Glucose 269 H 01/05/21 11:44: POC Glucose 316 H Current Medications Acetaminophen (Acetaminophen 500 Mg Tablet) 1,000 mg PO Q8H [facility] Last Admin: 01/05/21 10:27 Dose: 1,000 mg Documented by: Ascorbic Acid (Ascorbic Acid 500 Mg Tablet) 500 mg PO DAILY [facility] Last Admin: 01/05/21 10:25 Dose: 500 mg Documented by: Aspirin (Aspirin 81 Mg Tab.Chew) 81 mg PO QHS [facility] Last Admin: 01/04/21 20:48 Dose: 81 mg Documented by: Docusate Sodium (Docusate Sodium 100 Mg Capsule) 100 mg PO BID PRN PRN PRN Reason: Constipation Last Admin: 01/05/21 06:34 Dose: 100 mg Documented by: Ferrous Sulfate (Ferrous Sulfate 325 Mg Tablet) 325 mg PO QODAY@1200 [facility] Last Admin: 01/05/21 11:47 Dose: 325 mg Documented by: Heparin Sodium (Porcine) (Heparin Injection (Vial) 5,000 Unit/Ml Vial) 0 unit IV UD PRN; Protocol PRN Reason: dose adjustment Last Admin: 01/03/21 12:03 Dose: 1,000 unit Documented by: Sodium Chloride () 250 mls @ 15 mls/hr IV .[id number] PRN PRN Reason: Saline Flush Sodium Chloride () 250 mls @ 15 mls/hr IV .[id number] PRN PRN Reason: Additional IVPB Infusion Heparin Sodium/Dextrose () 25,000 units in 250 mls @ 14 mls/hr IV .[id number] [facility]; Protocol Last Admin: 01/05/21 12:27 Dose: 1,600 units/hr, 16 mls/hr Documented by: Insulin Glargine (Insulin Glargine 100 Units/Ml Pen) 15 units SC BID [facility] AL[facility]ERTO Insulin Human Lispro (Insulin Lispro 100 Unit/Ml Insuln.Pen) 0 unit SC ACHS [facility]; Protocol Last Admin: 01/05/21 11:48 Dose: 9 units Documented by: Levothyroxine Sodium (Levothyroxine 100 Mcg Tablet) 100 mcg PO DAILY@0600 [facility] Last Admin: 01/05/21 06:30 Dose: 100 mcg Documented by: Losartan Potassium (Losartan Potassium 25 Mg Tablet) 25 mg PO DAILY [facility] Last Admin: 01/05/21 10:25 Dose: 25 mg Documented by: Melatonin (Melatonin 3 Mg Tablet) 3 mg PO QHS PRN PRN PRN Reason: INSOMNIA Metoprolol Succinate (Metoprolol(Xl)Succ 100 Mg Tablet) 100 mg PO QHS [facility] Last Admin: 01/04/21 20:48 Dose: 100 mg Documented by: Montelukast Sodium (Montelukast 10 Mg Tablet) 10 mg PO QHS [facility] Last Admin: 01/04/21 20:48 Dose: 10 mg Documented by: Morphine Sulfate (Morphine 4 Mg/Ml Syringe) 4 mg IV Q3H PRN PRN PRN Reason: Pain Score 6-10 Last Admin: 01/04/21 08:15 Dose: 4 mg Documented by: Ondansetron HCl (Ondansetron 4 Mg/2 Ml Vial) 4 mg IV Q8H PRN PRN PRN Reason: NAUSEA/VOMITING Last Admin: 01/03/21 12:04 Dose: 4 mg Documented by: Oxycodone HCl (Oxycodone 5 Mg Tablet) 5 - 10 mg PO Q4H PRN PRN PRN Reason: Pain Score 4-5 Last Admin: 01/05/21 10:32 Dose: 10 mg Documented by: Pantoprazole Sodium (Pantoprazole Sodium 20 Mg Tablet) 20 mg PO QHS [facility] Last Admin: 01/04/21 20:48 Dose: 20 mg Documented by: Prochlorperazine Edisylate (Prochlorperazine 10 Mg/2 Ml Vial) 5 mg IV Q4H PRN PRN PRN Reason: Breakthrough Nausea/Vomiting Sodium Chloride (0.9% Saline Lock 10 Ml Syringe) 10 - 40 ml IV UD PRN PRN Reason: SALINE FLUSH Warfarin Sodium (Warfarin 5 Mg Tablet) 15 mg PO DAILY@1700 [facility] Assessment/Plan This patient was seen in conjunction with ARIANNE Bardales. I have independently interviewed and examined the patient and reviewed pertinent historical, laboratory, and other data. Please refer to ARIANNE Bardales's note for details of this patient's presentation, findings, and recommendations. I have reviewed ARIANNE Bardales's note and concur with documented findings. 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 Patient was started on heparin admitted to a monitored bed for subsequent evaluation 01/04/2021; patient seen still complains of significant right flank pain. 2D echo was ordered to evaluate patient's valve. 01/05/2021; patient 2D echo was unremarkable she however still has significant right flank pain. Her potassium was 3.4 slight improvement in kidney function. Patient was seen in consultation by both vascular surgery as well as nephrology. Physical Examination: GENERAL: cooperative HEENT: Atraumatic; EYES; Anicteric, Normal Conjunctiva NECK; supple, normal thyroid, RESPIRATORY: Diminished to auscultation CARDIOVASCULAR: Regular S1 S2, GI: soft, normoactive bowel sounds, : No Renal angle tenderness; EXTREMITIES: No edema, no clubbing, MUSCULOSKELETAL: no muscle waisting NEURO: Awake; no lateralizing signs. SKIN: No Rash PSYCH; Flat affect Assessment: 1. Right flank pain secondary to right renal cortical infarct 2. History of bicuspid valve status post aortic valve replacement systemic anticoagulation 3. Essential hypertension 4. Obesity with BMI of 33.9 5. Polycystic ovarian disease 6. Hypothyroidism 7. Diabetes mellitus type 2 8. Dyslipidemia 9. DVT prophylaxis Recommendations: 1. I have discussed the results of my overview and impressions with the patient 2. Options for management were reviewed Inpatient E&M: 91217 Subs Hosp L2
[2021-01-05] MEDS: Ferrous Sulfate 325 MG Tablet PO (11:47)
[2021-01-05] MEDS: Insulin Lispro 100 UNIT/ML INSULN.PEN SC ×3 (11:48→21:22)
--- NOTE | 2021-01-05 11:53 | CON.PCM_ITS ---
Consultation - Renal 01/05/21 PCP/ Referring MD: Requesting physician: [] Primary care physician: Dr. Jonas Sweet MD Reason for Consultation:: VANNA - History of Present Illness History of Present Illness: The patient is a 35 year old F with baseline creatinine ~1 hr admitted with flank pain secondary to right renal cortical infarct-CT of abdomen shows cortical infarct. O with Vanna creatinine 1.35, hypokalemia with ADHF EF of 55%, stable appearing mechanical aortic valve apparatus. Renal artery duplex ultrasound demonstrates patent renal arteries. Vascular surgery consulted who states there is no indication for intervention at this time. - Allergies Allergies: Allergies adhesive tape Allergy (Unknown, Verified 01/02/21 16:34) Unknown Sulfa (Sulfonamide Antibiotics) Allergy (Verified 01/02/21 16:34) Rash - Current Medications Current Medications: Current Medications Acetaminophen (Acetaminophen 500 Mg Tablet) 1,000 mg PO Q8H [facility] Last Admin: 01/05/21 10:27 Dose: 1,000 mg Documented by: Ascorbic Acid (Ascorbic Acid 500 Mg Tablet) 500 mg PO DAILY [facility] Last Admin: 01/05/21 10:25 Dose: 500 mg Documented by: Aspirin (Aspirin 81 Mg Tab.Chew) 81 mg PO QHS [facility] Last Admin: 01/04/21 20:48 Dose: 81 mg Documented by: Docusate Sodium (Docusate Sodium 100 Mg Capsule) 100 mg PO BID PRN PRN PRN Reason: Constipation Last Admin: 01/05/21 06:34 Dose: 100 mg Documented by: Ferrous Sulfate (Ferrous Sulfate 325 Mg Tablet) 325 mg PO QODAY@1200 [facility] Last Admin: 01/05/21 11:47 Dose: 325 mg Documented by: Heparin Sodium (Porcine) (Heparin Injection (Vial) 5,000 Unit/Ml Vial) 0 unit IV UD PRN; Protocol PRN Reason: dose adjustment Last Admin: 01/03/21 12:03 Dose: 1,000 unit Documented by: Sodium Chloride () 250 mls @ 15 mls/hr IV .[id number] PRN PRN Reason: Saline Flush Sodium Chloride () 250 mls @ 15 mls/hr IV .[id number] PRN PRN Reason: Additional IVPB Infusion Heparin Sodium/Dextrose () 25,000 units in 250 mls @ 14 mls/hr IV .[id number] [facility]; Protocol Last Admin: 01/04/21 20:40 Dose: 1,600 units/hr, 16 mls/hr Documented by: Insulin Glargine (Insulin Glargine 100 Units/Ml Pen) 15 units SC BID [facility] Insulin Human Lispro (Insulin Lispro 100 Unit/Ml Insuln.Pen) 0 unit SC ACHS [facility]; Protocol Last Admin: 01/05/21 11:48 Dose: 9 units Documented by: Levothyroxine Sodium (Levothyroxine 100 Mcg Tablet) 100 mcg PO DAILY@0600 [facility] Last Admin: 01/05/21 06:30 Dose: 100 mcg Documented by: Losartan Potassium (Losartan Potassium 25 Mg Tablet) 25 mg PO DAILY [facility] Last Admin: 01/05/21 10:25 Dose: 25 mg Documented by: Melatonin (Melatonin 3 Mg Tablet) 3 mg PO QHS PRN PRN PRN Reason: INSOMNIA Metoprolol Succinate (Metoprolol(Xl)Succ 100 Mg Tablet) 100 mg PO QHS [facility] Last Admin: 01/04/21 20:48 Dose: 100 mg Documented by: Montelukast Sodium (Montelukast 10 Mg Tablet) 10 mg PO QHS [facility] Last Admin: 01/04/21 20:48 Dose: 10 mg Documented by: Morphine Sulfate (Morphine 4 Mg/Ml Syringe) 4 mg IV Q3H PRN PRN PRN Reason: Pain Score 6-10 Last Admin: 01/04/21 08:15 Dose: 4 mg Documented by: Ondansetron HCl (Ondansetron 4 Mg/2 Ml Vial) 4 mg IV Q8H PRN PRN PRN Reason: NAUSEA/VOMITING Last Admin: 01/03/21 12:04 Dose: 4 mg Documented by: Oxycodone HCl (Oxycodone 5 Mg Tablet) 5 - 10 mg PO Q4H PRN PRN PRN Reason: Pain Score 4-5 Last Admin: 01/05/21 10:32 Dose: 10 mg Documented by: Pantoprazole Sodium (Pantoprazole Sodium 20 Mg Tablet) 20 mg PO QHS [facility] Last Admin: 01/04/21 20:48 Dose: 20 mg Documented by: Prochlorperazine Edisylate (Prochlorperazine 10 Mg/2 Ml Vial) 5 mg IV Q4H PRN PRN PRN Reason: Breakthrough Nausea/Vomiting Sodium Chloride (0.9% Saline Lock 10 Ml Syringe) 10 - 40 ml IV UD PRN PRN Reason: SALINE FLUSH Warfarin Sodium (Warfarin 5 Mg Tablet) 15 mg PO DAILY@1700 [facility] - Past Medical History Past Medical History (Chronic Problems): Chronic Problems (Last Reviewed 01/02/21 @ 23:58 by Ayesha Sweet [employer] CONSULTANT-C) Aortic stenosis due to bicuspid aortic valve (Chronic) Hypothyroidism (Chronic) Type 2 diabetes mellitus (Chronic) Hypertension (Chronic) - Past Surgical History Surgical History: hysterectomy, - - aortic valve surgery - Social History Smoking Status: Never smoker - Family History Maternal Family History: Family History (Last Reviewed 09/18/20 @ 09:39 by Megan Skelton) Grandmother Asthma Hypertension Grandfather Asthma Arthritis Cancer Diabetes Aunt Breast cancer Autoimmune disease Uncle Cancer Mother Diabetes Thyroid disorder Father Diabetes Sister Autoimmune disease Review of Systems Constitutional: Denies: Chills, Fever, Weight Change HEENT: Denies: Head Aches, Sinus Congestion, Sinus Drainage Cardiovascular: Denies: Chest Pain, Palpitations Respiratory: Denies: Cough, Shortness of breath at rest, Sputum production Gastrointestinal: Reports: Constipation. Denies: Abdominal Pain, Nausea, Vomiting Genitourinary: Denies: Dysuria Musculoskeletal: Denies: Joint Pain, Joint Tenderness Skin: Denies: Rash, Wounds Neurological: Denies: Numbness, Tingling, Focal weakness Psychiatric: Denies: Anxiety, Depression, Homicidal Ideations, Suicidal Ideations Hematologic/ Lymphatic: Denies: Easy Bruising, Easy Bleeding Patient Problems: Active and Suspected Problems (Last Reviewed 01/02/21 @ 23:58 by Ayesha Sweet [employer] CONSULTANT-C) Kidney infarction (Acute) - Physical Exam Vitals/I&O's: Vital Signs Temp Pulse Resp BP Pulse Ox 97.9 F 80 18 157/79 H 96 01/05/21 09:00 01/05/21 09:00 01/05/21 09:00 01/05/21 09:00 01/05/21 09:00 Oxygen Delivery Method Room Air Weight: 98.2 kg Body Mass Index (BMI) 33.9 Finger Stick Blood Glucose 206 Intake and Output for Last 24 Hours 01/03/21 01/04/21 01/05/21 23:59 23:59 23:59 Intake Total 2330.85 / 2330.85 1249.73 / 1249.73 360 / 360 Output Total 1100 / 1100 800 / 800 500 / 500 Balance 1230.85 / 1230.85 449.73 / 449.73 -140 / -140 General: Alert, Oriented x3, Cooperative HEENT: Atraumatic, PERRLA, EOMI, Normocephalic Neck: Supple, No JVD, Negative Carotid Bruits Lungs: Clear to auscultation, Normal air movement Cardiovascular: Regular rate, No murmurs Abdomen: Bowel Sounds Present, Soft, Non Tender Extremities: No edema, Capillary Refill Less than 3 Seconds Skin: No rashes, No breakdown Musculoskeletal: No Tenderness to Palpation of Joints or Extremities Neurological: Cranial nerves II-XII grossly intact Psych/Mental Status: Normal Affect, Appropriate Laboratory Results 01/04/21 06:52: PT 15.0 H, INR 1.3 01/04/21 06:52: Magnesium 1.7 01/04/21 11:06: POC Glucose 309 H 01/04/21 17:11: POC Glucose 314 H 01/04/21 18:20: Urine Color Yellow, Urine Clarity Clear, Urine pH 6.0, Ur Specific [place] 1.010, Urine Protein 30 H, Urine Glucose (UA) 1000 H, Urine Ketones Negative, Urine Occult Blood 150 H, Urine Nitrite Negative, Urine Bilirubin Negative, Urine Urobilinogen Normal, Ur Leukocyte Esterase Negative, Urine RBC 0-5 SEEN, Urine WBC 0-5 SEEN, Ur Squamous Epith Cells 0-5 SEEN, Urine Bacteria 0 SEEN, Urine Mucus 0 SEEN 01/04/21 22:23: POC Glucose 306 H 01/05/21 04:50: PT 16.8 H, INR 1.4, APTT 64.3 H 01/05/21 04:50: WBC 12.9 H, RBC 4.05 L, Hgb 12.6, Hct 37.8, MCV 93.3, MCH 31.1, MCHC 33.3, RDW Std Deviation 42.0, RDW Coeff of Darren 12.2, Plt Count 206, MPV 10.4 01/05/21 04:50: Sodium 131 L, Potassium 3.4 L, Chloride 96 L, Carbon Dioxide 31.0, Anion Gap 4 L, BUN 12, Creatinine 1.28 H, Estim Creat Clear Calc 59.09, Est GFR (MDRD) Af Amer 61, Est GFR (MDRD) Non-Af 50 L, BUN/Creatinine Ratio 9.4 L, Glucose 248 H, Calcium 8.9 01/05/21 06:41: POC Glucose 269 H Current Medications Acetaminophen (Acetaminophen 500 Mg Tablet) 1,000 mg PO Q8H [facility] Last Admin: 01/05/21 10:27 Dose: 1,000 mg Documented by: Ascorbic Acid (Ascorbic Acid 500 Mg Tablet) 500 mg PO DAILY [facility] Last Admin: 01/05/21 10:25 Dose: 500 mg Documented by: Aspirin (Aspirin 81 Mg Tab.Chew) 81 mg PO QHS [facility] Last Admin: 01/04/21 20:48 Dose: 81 mg Documented by: Docusate Sodium (Docusate Sodium 100 Mg Capsule) 100 mg PO BID PRN PRN PRN Reason: Constipation Last Admin: 01/05/21 06:34 Dose: 100 mg Documented by: Ferrous Sulfate (Ferrous Sulfate 325 Mg Tablet) 325 mg PO QODAY@1200 [facility] Last Admin: 01/05/21 11:47 Dose: 325 mg Documented by: Heparin Sodium (Porcine) (Heparin Injection (Vial) 5,000 Unit/Ml Vial) 0 unit IV UD PRN; Protocol PRN Reason: dose adjustment Last Admin: 01/03/21 12:03 Dose: 1,000 unit Documented by: Sodium Chloride () 250 mls @ 15 mls/hr IV .[id number] PRN PRN Reason: Saline Flush Sodium Chloride () 250 mls @ 15 mls/hr IV .[id number] PRN PRN Reason: Additional IVPB Infusion Heparin Sodium/Dextrose () 25,000 units in 250 mls @ 14 mls/hr IV .[id number] [facility]; Protocol Last Admin: 01/04/21 20:40 Dose: 1,600 units/hr, 16 mls/hr Documented by: Insulin Glargine (Insulin Glargine 100 Units/Ml Pen) 15 units SC BID [facility] Insulin Human Lispro (Insulin Lispro 100 Unit/Ml Insuln.Pen) 0 unit SC ACHS [facility]; Protocol Last Admin: 01/05/21 11:48 Dose: 9 units Documented by: Levothyroxine Sodium (Levothyroxine 100 Mcg Tablet) 100 mcg PO DAILY@0600 [facility] Last Admin: 01/05/21 06:30 Dose: 100 mcg Documented by: Losartan Potassium (Losartan Potassium 25 Mg Tablet) 25 mg PO DAILY [facility] Last Admin: 01/05/21 10:25 Dose: 25 mg Documented by: Melatonin (Melatonin 3 Mg Tablet) 3 mg PO QHS PRN PRN PRN Reason: INSOMNIA Metoprolol Succinate (Metoprolol(Xl)Succ 100 Mg Tablet) 100 mg PO QHS [facility] Last Admin: 01/04/21 20:48 Dose: 100 mg Documented by: Montelukast Sodium (Montelukast 10 Mg Tablet) 10 mg PO QHS [facility] Last Admin: 01/04/21 20:48 Dose: 10 mg Documented by: Morphine Sulfate (Morphine 4 Mg/Ml Syringe) 4 mg IV Q3H PRN PRN PRN Reason: Pain Score 6-10 Last Admin: 01/04/21 08:15 Dose: 4 mg Documented by: Ondansetron HCl (Ondansetron 4 Mg/2 Ml Vial) 4 mg IV Q8H PRN PRN PRN Reason: NAUSEA/VOMITING Last Admin: 01/03/21 12:04 Dose: 4 mg Documented by: Oxycodone HCl (Oxycodone 5 Mg Tablet) 5 - 10 mg PO Q4H PRN PRN PRN Reason: Pain Score 4-5 Last Admin: 01/05/21 10:32 Dose: 10 mg Documented by: Pantoprazole Sodium (Pantoprazole Sodium 20 Mg Tablet) 20 mg PO QHS [facility] Last Admin: 01/04/21 20:48 Dose: 20 mg Documented by: Prochlorperazine Edisylate (Prochlorperazine 10 Mg/2 Ml Vial) 5 mg IV Q4H PRN PRN PRN Reason: Breakthrough Nausea/Vomiting Sodium Chloride (0.9% Saline Lock 10 Ml Syringe) 10 - 40 ml IV UD PRN PRN Reason: SALINE FLUSH Warfarin Sodium (Warfarin 5 Mg Tablet) 15 mg PO DAILY@1700 [facility] Assessment/Plan All Active Problems (Last Reviewed 01/02/21 @ 23:58 by Ayesha Sweet, [employer] CONSULTANT-C) Thoracic neuritis (Acute) Segmental and somatic dysfunction of thoracic region (Acute) Kidney infarction (Acute) Non oliguric VANNA creatinine peaked at 1.35 now 1.26 due to hemodynamic perturbation-agree with IVF hold radha and metformin Rt flank pain secondary to right renal cortical infarct-CT of abdomen shows cortical infarct. On heparin drip. Renal artery duplex ultrasound demonstrates patent renal arteries. Vascular surgery consulted who states there is no indication for intervention at this time. Hypertension-stable, DC losartan, continue metoprolol. Hyperlipidemia-not on statin, outpatient follow-up. .
[2021-01-05 11:55] LABS: Bedside Glucose 316 mg/dL (70-110)
[2021-01-05] MEDS: HEPARIN/D5w 25,000 UNITS 25,000 UNITS/250 ML IV.SOLN. 16 UNITS IV (12:27)
[2021-01-05] MEDS: cycloBENZAPRine HCl 10 MG Tablet PO (16:54)
[2021-01-05 16:56] LABS: Bedside Glucose 215 mg/dL (70-110)
[2021-01-05 21:01] LABS: Bedside Glucose 291 mg/dL (70-110)
[2021-01-05] MEDS: Metoprolol(XL)Succ 100 MG Tablet PO (21:17)
[2021-01-05] MEDS: Pantoprazole Sodium 20 MG Tablet PO (21:17)
[2021-01-05] MEDS: Aspirin 81 MG TAB.CHEW PO (21:17)
[2021-01-05] MEDS: Montelukast 10 MG Tablet PO (21:21)
[2021-01-06] VITALS (10 sets, daily range): BP systolic 118–128; BP diastolic 61–70; PULSE 65–81; RESP 14–18; TEMP 36.6–37.1; O2SAT 96–99
[2021-01-06] MEDS: cycloBENZAPRine HCl 10 MG Tablet PO ×3 (02:25→17:00)
[2021-01-06] MEDS: Acetaminophen 500 MG Tablet 1000 MG PO ×3 (02:25→17:00)
[2021-01-06] MEDS: HEPARIN/D5w 25,000 UNITS 25,000 UNITS/250 ML IV.SOLN. 16 UNITS IV ×2 (04:34→22:59)
[2021-01-06] MEDS: Levothyroxine 100 MCG Tablet PO (06:29)
[2021-01-06] MEDS: Insulin Lispro 100 UNIT/ML INSULN.PEN SC ×4 (06:29→21:14)
[2021-01-06 06:36] LABS: Bedside Glucose 261 mg/dL (70-110)
[2021-01-06 06:54] LABS: Hematocrit 38.3 % (37-47); Hemoglobin 12.8 g/dL (12.0-15.0); Mean Corp Hgb Conc 33.4 g/dL (32-36); Mean Corpuscular Hgb 31.4 pg (27.0-32.0); Mean Corpuscular Volume 93.9 fL (81-99); Mean Platelet Vol. 10.1 fl (6.2-12.0); Platelet Count 232 K/mm3 (150-450); RBC Distribution Width CV 12.2 % (11.6-14.6); RBC Distribution Width SD 42.1 fl (35.1-43.9); Red Blood Count 4.08 M/mm3 (4.2-5.4); White Blood Count 10.8 K/mm3 (4.4-11.0)
[2021-01-06 07:16] LABS: International Normalized Ratio 1.6; Prothrombin Time (Protime)PT. 18.3 SECONDS (11.7-14.9)
[2021-01-06 07:18] LABS: Partial Thromboplast Time 71.5 Seconds (24.1-36.2)
[2021-01-06 07:20] LABS: Anion Gap 2 (5-15); BUN 13 mg/dL (7-18); BUN/Creat Ratio 10.2 RATIO (10-20); Calcium,Total 9.1 mg/dL (8.5-10.1); Chloride 96 mmol/L (98-107); Creatinine, Serum 1.28 mg/dL (0.55-1.02); EST Glomerular Filtration Rate 50 mL/min (>60); Est Glom Filt Rate - Afr Amer 61 mL/min (>60); Estimated Creatinine Clearance 59.09 ml/min; Glucose 238 mg/dL (74-106); Potassium 3.6 mmol/L (3.5-5.1); Sodium Level 131 mmol/L (136-145)
[2021-01-06] MEDS: Ascorbic Acid 500 MG Tablet PO (09:05)
--- NOTE | 2021-01-06 10:03 | PCM.PROGNOTE ---
<Kimberly Ann DYEING MACHINE TENDER - Last Filed: 01/06/21 10:13> Patient Problems: Active and Suspected Problems (Last Reviewed 01/02/21 @ 23:58 by Ayesha Sweet NP-C) Kidney infarction (Acute) Subjective: Patient seen and examined. Right flank pain improved. Patient reports cramping pain which muscle relaxers seemed to help. Denies new symptoms or complaints. Discussed current labs and plan of care. - Physical Exam Vitals/I&O's: Vital Signs Temp Pulse Resp BP Pulse Ox 97.9 F 81 18 128/69 H 96 01/06/21 08:53 01/06/21 08:53 01/06/21 08:53 01/06/21 08:53 01/06/21 08:53 Oxygen Delivery Method Room Air Weight: 216 lb 7.903 oz Body Mass Index (BMI) 33.9 Finger Stick Blood Glucose 206 Intake and Output for Last 24 Hours 01/04/21 01/05/21 01/06/21 23:59 23:59 23:59 Intake Total 1249.73 / 1249.73 1090 / 1090 250 / 250 Output Total 800 / 800 500 / 500 Balance 449.73 / 449.73 590 / 590 250 / 250 General: Alert, Oriented x3, Cooperative HEENT: Atraumatic, PERRLA, EOMI, Normocephalic Neck: Supple, No JVD, Negative Carotid Bruits Lungs: Clear to auscultation, Normal air movement Cardiovascular: Regular rate, Regular Rhythm, Murmur - + Abdomen: Bowel Sounds Present, Soft, Non Tender, Non-Distended Extremities: No clubbing, No cyanosis, No edema, Capillary Refill Less than 3 Seconds Skin: No rashes, No breakdown Musculoskeletal: No Tenderness to Palpation of Joints or Extremities Neurological: Cranial nerves II-XII grossly intact, Neuro grossly intact Psych/Mental Status: Normal Affect, Appropriate Laboratory Results 01/02/21 23:00: Miscellaneous Test 01/05/21 11:44: POC Glucose 316 H 01/05/21 16:43: POC Glucose 215 H 01/05/21 20:56: POC Glucose 291 H 01/06/21 06:28: POC Glucose 261 H 01/06/21 06:44: PT 18.3 H, INR 1.6, APTT 71.5 H 01/06/21 06:44: WBC 10.8, RBC 4.08 L, Hgb 12.8, Hct 38.3, MCV 93.9, MCH 31.4, MCHC 33.4, RDW Std Deviation 42.1, RDW Coeff of Darren 12.2, Plt Count 232, MPV 10.1 01/06/21 06:44: Sodium 131 L, Potassium 3.6, Chloride 96 L, Carbon Dioxide 33.0 H, Anion Gap 2 L, BUN 13, Creatinine 1.28 H, Estim Creat Clear Calc 59.09, Est GFR (MDRD) Af Amer 61, Est GFR (MDRD) Non-Af 50 L, BUN/Creatinine Ratio 10.2, Glucose 238 H, Calcium 9.1 Current Medications Acetaminophen (Acetaminophen 500 Mg Tablet) 1,000 mg PO Q8H [facility] Last Admin: 01/06/21 09:05 Dose: 1,000 mg Documented by: Ascorbic Acid (Ascorbic Acid 500 Mg Tablet) 500 mg PO DAILY [facility] Last Admin: 01/06/21 09:05 Dose: 500 mg Documented by: Aspirin (Aspirin 81 Mg Tab.Chew) 81 mg PO QHS [facility] Last Admin: 01/05/21 21:17 Dose: 81 mg Documented by: Cyclobenzaprine HCl (Cyclobenzaprine Hcl 10 Mg Tablet) 10 mg PO TID PRN PRN PRN Reason: SPASMS Last Admin: 01/06/21 09:10 Dose: 10 mg Documented by: Docusate Sodium (Docusate Sodium 100 Mg Capsule) 100 mg PO BID PRN PRN PRN Reason: Constipation Last Admin: 01/05/21 16:54 Dose: 100 mg Documented by: Ferrous Sulfate (Ferrous Sulfate 325 Mg Tablet) 325 mg PO QODAY@1200 [facility] Last Admin: 01/05/21 11:47 Dose: 325 mg Documented by: Heparin Sodium (Porcine) (Heparin Injection (Vial) 5,000 Unit/Ml Vial) 0 unit IV UD PRN; Protocol PRN Reason: dose adjustment Last Admin: 01/03/21 12:03 Dose: 1,000 unit Documented by: Sodium Chloride () 250 mls @ 15 mls/hr IV .[id number] PRN PRN Reason: Saline Flush Sodium Chloride () 250 mls @ 15 mls/hr IV .[id number] PRN PRN Reason: Additional IVPB Infusion Heparin Sodium/Dextrose () 25,000 units in 250 mls @ 14 mls/hr IV .[id number] [facility]; Protocol Last Admin: 01/06/21 04:34 Dose: 1,600 units/hr, 16 mls/hr Documented by: Insulin Glargine (Insulin Glargine 100 Units/Ml Pen) 15 units SC BID [facility] Last Admin: 01/06/21 09:12 Dose: 15 u Documented by: Insulin Human Lispro (Insulin Lispro 100 Unit/Ml Insuln.Pen) 0 unit SC ACHS [facility]; Protocol Last Admin: 01/06/21 06:29 Dose: 9 units Documented by: Levothyroxine Sodium (Levothyroxine 100 Mcg Tablet) 100 mcg PO DAILY@0600 [facility] Last Admin: 01/06/21 06:29 Dose: 100 mcg Documented by: Melatonin (Melatonin 3 Mg Tablet) 3 mg PO QHS PRN PRN PRN Reason: INSOMNIA Metoprolol Succinate (Metoprolol(Xl)Succ 100 Mg Tablet) 100 mg PO QHS [facility] Last Admin: 01/05/21 21:17 Dose: 100 mg Documented by: Montelukast Sodium (Montelukast 10 Mg Tablet) 10 mg PO QHS [facility] Last Admin: 01/05/21 21:21 Dose: 10 mg Documented by: Morphine Sulfate (Morphine 4 Mg/Ml Syringe) 4 mg IV Q3H PRN PRN PRN Reason: Pain Score 6-10 Last Admin: 01/04/21 08:15 Dose: 4 mg Documented by: Ondansetron HCl (Ondansetron 4 Mg/2 Ml Vial) 4 mg IV Q8H PRN PRN PRN Reason: NAUSEA/VOMITING Last Admin: 01/03/21 12:04 Dose: 4 mg Documented by: Oxycodone HCl (Oxycodone 5 Mg Tablet) 5 - 10 mg PO Q4H PRN PRN PRN Reason: Pain Score 4-5 Last Admin: 01/05/21 22:09 Dose: 5 mg Documented by: Pantoprazole Sodium (Pantoprazole Sodium 20 Mg Tablet) 20 mg PO QHS [facility] Last Admin: 01/05/21 21:17 Dose: 20 mg Documented by: Polyethylene Glycol (Polyethylene Glycol 3350 17 Gm Packet) 17 gm PO DAILY [facility] Prochlorperazine Edisylate (Prochlorperazine 10 Mg/2 Ml Vial) 5 mg IV Q4H PRN PRN PRN Reason: Breakthrough Nausea/Vomiting Sodium Chloride (0.9% Saline Lock 10 Ml Syringe) 10 - 40 ml IV UD PRN PRN Reason: SALINE FLUSH Warfarin Sodium (Warfarin 5 Mg Tablet) 15 mg PO DAILY@1700 [facility] Last Admin: 01/05/21 16:49 Dose: 15 mg Documented by: Medical Necessity - Tobacco Use Smoking Status: Never smoker Tobacco Use: Non-smoker Assessment/Plan All Active Problems (Last Reviewed 01/02/21 @ 23:58 by Ayesha Sweet NP-Nacho) Thoracic neuritis (Acute) Segmental and somatic dysfunction of thoracic region (Acute) Kidney infarction (Acute) 1. 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 On heparin drip. Trend INR. Increase Coumadin to 15 mg. As needed pain regimen. Echocardiogram completed and demonstrates an EF of 55%, stable appearing mechanical aortic valve apparatus. Renal artery duplex ultrasound demonstrates patent renal arteries. Vascular surgery consulted who states there is no indication for intervention at this time. Nephrology consulted. Creatinine stable. 2. History of bicuspid valve status post aortic valve replacement-history of AVR x3, most recently winter 2019. Echocardiogram demonstrates an EF of 55%, stable appearance of aortic valve apparatus. 3. Hypertension-stable, continue metoprolol. Losartan discontinued. Monitor BP. 4. Hyperlipidemia-not on statin, outpatient follow-up. 5. PCOS-On Metformin, held. 6. Obesity-encouraged diet and lifestyle modifications. 7. Type 2 diabetes mellitus-oral regimen on hold. Accu-Cheks with sliding scale insulin. Lantus 15 units twice daily. 8. Hypothyroidism-continue Synthroid. DVT prophylaxis- Heparin gtt, coumadin Discharge planning: Await therapeutic INR. This patient was seen by ARIANNE Bardales under the supervision of Dr. Cuellar. <Topher Cuellar - Last Filed: 01/06/21 10:22> - Physical Exam Vitals/I&O's: Vital Signs Temp Pulse Resp BP Pulse Ox 97.9 F 81 18 128/69 H 96 01/06/21 08:53 01/06/21 08:53 01/06/21 08:53 01/06/21 08:53 01/06/21 08:53 Oxygen Delivery Method Room Air Weight: 98.2 kg Body Mass Index (BMI) 33.9 Finger Stick Blood Glucose 206 Intake and Output for Last 24 Hours 01/04/21 01/05/21 01/06/21 23:59 23:59 23:59 Intake Total 1249.73 / 1249.73 1090 / 1090 250 / 250 Output Total 800 / 800 500 / 500 Balance 449.73 / 449.73 590 / 590 250 / 250 Laboratory Results 01/02/21 23:00: Miscellaneous Test 01/05/21 11:44: POC Glucose 316 H 01/05/21 16:43: POC Glucose 215 H 01/05/21 20:56: POC Glucose 291 H 01/06/21 06:28: POC Glucose 261 H 01/06/21 06:44: PT 18.3 H, INR 1.6, APTT 71.5 H 01/06/21 06:44: WBC 10.8, RBC 4.08 L, Hgb 12.8, Hct 38.3, MCV 93.9, MCH 31.4, MCHC 33.4, RDW Std Deviation 42.1, RDW Coeff of Darren 12.2, Plt Count 232, MPV 10.1 01/06/21 06:44: Sodium 131 L, Potassium 3.6, Chloride 96 L, Carbon Dioxide 33.0 H, Anion Gap 2 L, BUN 13, Creatinine 1.28 H, Estim Creat Clear Calc 59.09, Est GFR (MDRD) Af Amer 61, Est GFR (MDRD) Non-Af 50 L, BUN/Creatinine Ratio 10.2, Glucose 238 H, Calcium 9.1 Current Medications Acetaminophen (Acetaminophen 500 Mg Tablet) 1,000 mg PO Q8H [facility] Last Admin: 01/06/21 09:05 Dose: 1,000 mg Documented by: Ascorbic Acid (Ascorbic Acid 500 Mg Tablet) 500 mg PO DAILY [facility] Last Admin: 01/06/21 09:05 Dose: 500 mg Documented by: Aspirin (Aspirin 81 Mg Tab.Chew) 81 mg PO QHS [facility] Last Admin: 01/05/21 21:17 Dose: 81 mg Documented by: Cyclobenzaprine HCl (Cyclobenzaprine Hcl 10 Mg Tablet) 10 mg PO TID PRN PRN PRN Reason: SPASMS Last Admin: 01/06/21 09:10 Dose: 10 mg Documented by: Docusate Sodium (Docusate Sodium 100 Mg Capsule) 100 mg PO BID PRN PRN PRN Reason: Constipation Last Admin: 01/05/21 16:54 Dose: 100 mg Documented by: Ferrous Sulfate (Ferrous Sulfate 325 Mg Tablet) 325 mg PO QODAY@1200 [facility] Last Admin: 01/05/21 11:47 Dose: 325 mg Documented by: Heparin Sodium (Porcine) (Heparin Injection (Vial) 5,000 Unit/Ml Vial) 0 unit IV UD PRN; Protocol PRN Reason: dose adjustment Last Admin: 01/03/21 12:03 Dose: 1,000 unit Documented by: Sodium Chloride () 250 mls @ 15 mls/hr IV .[id number] PRN PRN Reason: Saline Flush Sodium Chloride () 250 mls @ 15 mls/hr IV .[id number] PRN PRN Reason: Additional IVPB Infusion Heparin Sodium/Dextrose () 25,000 units in 250 mls @ 14 mls/hr IV .[id number] [facility]; Protocol Last Admin: 01/06/21 04:34 Dose: 1,600 units/hr, 16 mls/hr Documented by: Insulin Glargine (Insulin Glargine 100 Units/Ml Pen) 15 units SC BID [facility] Last Admin: 01/06/21 09:12 Dose: 15 u Documented by: Insulin Human Lispro (Insulin Lispro 100 Unit/Ml Insuln.Pen) 0 unit SC ACHS [facility]; Protocol Last Admin: 01/06/21 06:29 Dose: 9 units Documented by: Levothyroxine Sodium (Levothyroxine 100 Mcg Tablet) 100 mcg PO DAILY@0600 [facility] Last Admin: 01/06/21 06:29 Dose: 100 mcg Documented by: Melatonin (Melatonin 3 Mg Tablet) 3 mg PO QHS PRN PRN PRN Reason: INSOMNIA Metoprolol Succinate (Metoprolol(Xl)Succ 100 Mg Tablet) 100 mg PO QHS [facility] Last Admin: 01/05/21 21:17 Dose: 100 mg Documented by: Montelukast Sodium (Montelukast 10 Mg Tablet) 10 mg PO QHS [facility] Last Admin: 01/05/21 21:21 Dose: 10 mg Documented by: Morphine Sulfate (Morphine 4 Mg/Ml Syringe) 4 mg IV Q3H PRN PRN PRN Reason: Pain Score 6-10 Last Admin: 01/04/21 08:15 Dose: 4 mg Documented by: Ondansetron HCl (Ondansetron 4 Mg/2 Ml Vial) 4 mg IV Q8H PRN PRN PRN Reason: NAUSEA/VOMITING Last Admin: 01/03/21 12:04 Dose: 4 mg Documented by: Oxycodone HCl (Oxycodone 5 Mg Tablet) 5 - 10 mg PO Q4H PRN PRN PRN Reason: Pain Score 4-5 Last Admin: 01/05/21 22:09 Dose: 5 mg Documented by: Pantoprazole Sodium (Pantoprazole Sodium 20 Mg Tablet) 20 mg PO QHS [facility] Last Admin: 01/05/21 21:17 Dose: 20 mg Documented by: Polyethylene Glycol (Polyethylene Glycol 3350 17 Gm Packet) 17 gm PO DAILY [facility] Prochlorperazine Edisylate (Prochlorperazine 10 Mg/2 Ml Vial) 5 mg IV Q4H PRN PRN PRN Reason: Breakthrough Nausea/Vomiting Sodium Chloride (0.9% Saline Lock 10 Ml Syringe) 10 - 40 ml IV UD PRN PRN Reason: SALINE FLUSH Warfarin Sodium (Warfarin 5 Mg Tablet) 15 mg PO DAILY@1700 [facility] Last Admin: 01/05/21 16:49 Dose: 15 mg Documented by: Assessment/Plan This patient was seen in conjunction with ARIANNE Bardales. I have independently interviewed and examined the patient and reviewed pertinent historical, laboratory, and other data. Please refer to ARIANNE Bardales's note for details of this patient's presentation, findings, and recommendations. I have reviewed ARIANNE Bardales's note and concur with documented findings. 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 Patient was started on heparin admitted to a monitored bed for subsequent evaluation 01/04/2021; patient seen still complains of significant right flank pain. 2D echo was ordered to evaluate patient's valve. 01/05/2021; patient 2D echo was unremarkable she however still has significant right flank pain. Her potassium was 3.4 slight improvement in kidney function. Patient was seen in consultation by both vascular surgery as well as nephrology. 2421; patient seen pain is tolerable. Flexeril was added to her pain regimen. Kidney function remains relatively stable. INR 1.6. Physical Examination: GENERAL: cooperative HEENT: Atraumatic; EYES; Anicteric, Normal Conjunctiva NECK; supple, normal thyroid, RESPIRATORY: Diminished to auscultation CARDIOVASCULAR: Regular S1 S2, GI: soft, normoactive bowel sounds, : No Renal angle tenderness; EXTREMITIES: No edema, no clubbing, MUSCULOSKELETAL: no muscle waisting NEURO: Awake; no lateralizing signs. SKIN: No Rash PSYCH; Flat affect Assessment: 1. Right flank pain secondary to right renal cortical infarct 2. History of bicuspid valve status post aortic valve replacement systemic anticoagulation 3. Essential hypertension 4. Obesity with BMI of 33.9 5. Polycystic ovarian disease 6. Hypothyroidism 7. Diabetes mellitus type 2 8. Dyslipidemia 9. DVT prophylaxis Recommendations: 1. I have discussed the results of my overview and impressions with the patient 2. Options for management were reviewed Inpatient E&M: 31662 Subs Hosp L2
[2021-01-06 11:25] LABS: Bedside Glucose 296 mg/dL (70-110)
[2021-01-06 11:41] LABS: Bedside Glucose 272 mg/dL (70-110)
[2021-01-06] MEDS: Polyethylene Glycol 3350 17 GM PACKET PO (12:28)
[2021-01-06 17:20] LABS: Bedside Glucose 263 mg/dL (70-110)
--- NOTE | 2021-01-06 18:51 | PCM.PN.REN ---
Patient Problems: Active and Suspected Problems (Last Reviewed 01/02/21 @ 23:58 by Ayesha Sweet, CRUSHED STONE GRADER-C) Kidney infarction (Acute) Objective: back pain is better. No worsening breathing. No N/V/D - Physical Exam Vitals/I&O's: Vital Signs Temp Pulse Resp BP Pulse Ox 98.8 F 72 18 128/70 H 99 01/06/21 15:00 01/06/21 15:00 01/06/21 15:00 01/06/21 15:00 01/06/21 15:00 Oxygen Delivery Method Room Air Weight: 98.2 kg Body Mass Index (BMI) 33.9 Finger Stick Blood Glucose 206 Intake and Output for Last 24 Hours 01/04/21 01/05/21 01/06/21 23:59 23:59 23:59 Intake Total 1249.73 / 1249.73 1090 / 1090 730 / 730 Output Total 800 / 800 500 / 500 Balance 449.73 / 449.73 590 / 590 730 / 730 General: Alert, Oriented x3 HEENT: Atraumatic Oral: Moist Mucosa Neck: Supple, No JVD Lungs: Clear to auscultation Cardiovascular: Regular rate, Regular Rhythm, Normal S1, Normal S2 Abdomen: Bowel Sounds Present, Soft, Non Tender Extremities: No clubbing, No cyanosis, No edema Skin: No rashes Musculoskeletal: No Tenderness to Palpation of Joints or Extremities Lymphatic: No Cervical, Supraclavicular, or Inguinal Adenopathy Neurological: Cranial nerves II-XII grossly intact, Neuro grossly intact Psych/Mental Status: Normal Affect Laboratory Results 01/05/21 20:56: POC Glucose 291 H 01/06/21 06:28: POC Glucose 261 H 01/06/21 06:44: PT 18.3 H, INR 1.6, APTT 71.5 H 01/06/21 06:44: WBC 10.8, RBC 4.08 L, Hgb 12.8, Hct 38.3, MCV 93.9, MCH 31.4, MCHC 33.4, RDW Std Deviation 42.1, RDW Coeff of Darren 12.2, Plt Count 232, MPV 10.1 01/06/21 06:44: Sodium 131 L, Potassium 3.6, Chloride 96 L, Carbon Dioxide 33.0 H, Anion Gap 2 L, BUN 13, Creatinine 1.28 H, Estim Creat Clear Calc 59.09, Est GFR (MDRD) Af Amer 61, Est GFR (MDRD) Non-Af 50 L, BUN/Creatinine Ratio 10.2, Glucose 238 H, Calcium 9.1 01/06/21 09:12: POC Glucose 296 H 01/06/21 11:32: POC Glucose 272 H 01/06/21 16:53: POC Glucose 263 H Current Medications Acetaminophen (Acetaminophen 500 Mg Tablet) 1,000 mg PO Q8H [facility] Last Admin: 01/06/21 17:00 Dose: 1,000 mg Documented by: Ascorbic Acid (Ascorbic Acid 500 Mg Tablet) 500 mg PO DAILY [facility] Last Admin: 01/06/21 09:05 Dose: 500 mg Documented by: Aspirin (Aspirin 81 Mg Tab.Chew) 81 mg PO QHS [facility] Last Admin: 01/05/21 21:17 Dose: 81 mg Documented by: Cyclobenzaprine HCl (Cyclobenzaprine Hcl 10 Mg Tablet) 10 mg PO TID PRN PRN PRN Reason: SPASMS Last Admin: 01/06/21 17:00 Dose: 10 mg Documented by: Docusate Sodium (Docusate Sodium 100 Mg Capsule) 100 mg PO BID PRN PRN PRN Reason: Constipation Last Admin: 01/05/21 16:54 Dose: 100 mg Documented by: Ferrous Sulfate (Ferrous Sulfate 325 Mg Tablet) 325 mg PO QODAY@1200 [facility] Last Admin: 01/05/21 11:47 Dose: 325 mg Documented by: Heparin Sodium (Porcine) (Heparin Injection (Vial) 5,000 Unit/Ml Vial) 0 unit IV UD PRN; Protocol PRN Reason: dose adjustment Last Admin: 01/03/21 12:03 Dose: 1,000 unit Documented by: Sodium Chloride () 250 mls @ 15 mls/hr IV .[id number] PRN PRN Reason: Saline Flush Sodium Chloride () 250 mls @ 15 mls/hr IV .[id number] PRN PRN Reason: Additional IVPB Infusion Heparin Sodium/Dextrose () 25,000 units in 250 mls @ 14 mls/hr IV .[id number] [facility]; Protocol Last Admin: 01/06/21 04:34 Dose: 1,600 units/hr, 16 mls/hr Documented by: Insulin Glargine (Insulin Glargine 100 Units/Ml Pen) 15 units SC BID [facility] Last Admin: 01/06/21 09:12 Dose: 15 u Documented by: Insulin Human Lispro (Insulin Lispro 100 Unit/Ml Insuln.Pen) 0 unit SC [facility]; Protocol Last Admin: 01/06/21 17:01 Dose: 9 units Documented by: Levothyroxine Sodium (Levothyroxine 100 Mcg Tablet) 100 mcg PO DAILY@0600 [facility] Last Admin: 01/06/21 06:29 Dose: 100 mcg Documented by: Melatonin (Melatonin 3 Mg Tablet) 3 mg PO QHS PRN PRN PRN Reason: INSOMNIA Metoprolol Succinate (Metoprolol(Xl)Succ 100 Mg Tablet) 100 mg PO QHS [facility] Last Admin: 01/05/21 21:17 Dose: 100 mg Documented by: Montelukast Sodium (Montelukast 10 Mg Tablet) 10 mg PO QHS [facility] Last Admin: 01/05/21 21:21 Dose: 10 mg Documented by: Morphine Sulfate (Morphine 4 Mg/Ml Syringe) 4 mg IV Q3H PRN PRN PRN Reason: Pain Score 6-10 Last Admin: 01/04/21 08:15 Dose: 4 mg Documented by: Ondansetron HCl (Ondansetron 4 Mg/2 Ml Vial) 4 mg IV Q8H PRN PRN PRN Reason: NAUSEA/VOMITING Last Admin: 01/03/21 12:04 Dose: 4 mg Documented by: Oxycodone HCl (Oxycodone 5 Mg Tablet) 5 - 10 mg PO Q4H PRN PRN PRN Reason: Pain Score 4-5 Last Admin: 01/05/21 22:09 Dose: 5 mg Documented by: Pantoprazole Sodium (Pantoprazole Sodium 20 Mg Tablet) 20 mg PO QHS [facility] Last Admin: 01/05/21 21:17 Dose: 20 mg Documented by: Polyethylene Glycol (Polyethylene Glycol 3350 17 Gm Packet) 17 gm PO DAILY [facility] Last Admin: 01/06/21 12:28 Dose: 17 gm Documented by: Prochlorperazine Edisylate (Prochlorperazine 10 Mg/2 Ml Vial) 5 mg IV Q4H PRN PRN PRN Reason: Breakthrough Nausea/Vomiting Sodium Chloride (0.9% Saline Lock 10 Ml Syringe) 10 - 40 ml IV UD PRN PRN Reason: SALINE FLUSH Warfarin Sodium (Warfarin 5 Mg Tablet) 15 mg PO DAILY@1700 [facility] Last Admin: 01/06/21 16:59 Dose: 15 mg Documented by: Medical Necessity - Tobacco Use Smoking Status: Never smoker Tobacco Use: Non-smoker Assessment/Plan All Active Problems (Last Reviewed 01/02/21 @ 23:58 by Ayesha Sweet, CR[employer] GRADER-C) Thoracic neuritis (Acute) Segmental and somatic dysfunction of thoracic region (Acute) Kidney infarction (Acute) Non oliguric VANNA . likely from IV contrast exposure and renal infarct Cr peaked at 1.35 mg/dl. Cr is slightly better today Continue holding ARB No need for BAGGAGE CHECKER Check RFP in am Rt flank pain secondary to right renal cortical infarct-CT of abdomen shows cortical infarct. On heparin drip. Vascular surgery consulted who states there is no indication for intervention at this time. Hypertension-stable, continue metoprolol. tricuspid aortic valve s/p replacement.AC as per the primary service Renal team will continue to follow Please call if any question Cely Farmer MD
[2021-01-06] MEDS: Montelukast 10 MG Tablet PO (21:14)
[2021-01-06] MEDS: Aspirin 81 MG TAB.CHEW PO (21:14)
[2021-01-06] MEDS: Metoprolol(XL)Succ 100 MG Tablet PO (21:14)
[2021-01-06] MEDS: Pantoprazole Sodium 20 MG Tablet PO (21:14)
[2021-01-06 21:20] LABS: Bedside Glucose 274 mg/dL (70-110)
[2021-01-07] MEDS: oxyCODONE 5 MG Tablet PO (02:32)
[2021-01-07] MEDS: Acetaminophen 500 MG Tablet 1000 MG PO ×2 (02:32→08:55)
[2021-01-07 02:52] VITALS: BP 143/79; PULSE 79; RESP 12; TEMP 36.7; O2SAT 99
[2021-01-07 02:59] VITALS: PULSE 66
[2021-01-07 05:49] LABS: Absolute Neutrophil Count 5.6 X10^3/uL (2.0-7.7); Basophil# 0.07 X10^3/uL; Basophil% 0.8 % (0-1); Eosinophil# 0.23 X10^3/uL; Eosinophils% 2.7 % (0-5); Hematocrit 37.6 % (37-47); Hemoglobin 12.5 g/dL (12.0-15.0); Lymphocyte % 18.9 % (19-41); Mean Corp Hgb Conc 33.2 g/dL (32-36); Mean Corpuscular Hgb 31.6 pg (27.0-32.0); Mean Corpuscular Volume 94.9 fL (81-99); Mean Platelet Vol. 10.5 fl (6.2-12.0); Monocyte# 0.76 X10^3/uL; NRBC Flagged by Analyzer 0 % (0-5); Neutrophil # 5.64 X10^3/uL (2.7-7.7); Neutrophil % 66.7 % (47-70); Platelet Count 268 K/mm3 (150-450); RBC Distribution Width CV 11.9 % (11.6-14.6); RBC Distribution Width SD 42.2 fl (35.1-43.9); Red Blood Count 3.96 M/mm3 (4.2-5.4); White Blood Count 8.5 K/mm3 (4.4-11.0)
[2021-01-07 06:05] LABS: Anion Gap 5 (5-15); BUN 17 mg/dL (7-18); Chloride 97 mmol/L (98-107); Creatinine, Serum 1.31 mg/dL (0.55-1.02); EST Glomerular Filtration Rate 49 mL/min (>60); Est Glom Filt Rate - Afr Amer 59 mL/min (>60); Estimated Creatinine Clearance 57.73 ml/min; Glucose 244 mg/dL (74-106); Potassium 4.1 mmol/L (3.5-5.1); Sodium Level 133 mmol/L (136-145)
[2021-01-07 06:08] LABS: International Normalized Ratio 1.9; Prothrombin Time (Protime)PT. 21.2 SECONDS (11.7-14.9)
[2021-01-07 06:10] LABS: Partial Thromboplast Time 81.4 Seconds (24.1-36.2)
[2021-01-07] MEDS: Levothyroxine 100 MCG Tablet PO (06:54)
[2021-01-07] MEDS: Insulin Lispro 100 UNIT/ML INSULN.PEN SC (06:54)
[2021-01-07] MEDS: cycloBENZAPRine HCl 10 MG Tablet PO (06:54)
[2021-01-07 07:00] VITALS: PULSE 63
[2021-01-07 07:00] LABS: Bedside Glucose 222 mg/dL (70-110)
[2021-01-07 08:49] VITALS: BP 137/86; PULSE 70; RESP 18; TEMP 35.8; O2SAT 100
[2021-01-07] MEDS: Ascorbic Acid 500 MG Tablet PO (08:55)
--- NOTE | 2021-01-07 10:24 | PCM.DC ---
- Discharge Diagnoses Current Active Problems: Current Active and Chronic Problems (Last Reviewed 01/02/21 @ 23:58 by Ayesha Sweet, THAI-C) Aortic stenosis due to bicuspid aortic valve (Chronic) Hypothyroidism (Chronic) Type 2 diabetes mellitus (Chronic) Hypertension (Chronic) Kidney infarction (Acute) You will use the following diet at home:: Calorie/Carbohydrate Controlled (specify 1200, 1400, etc) Discharge Activity: Return to Normal Activity Call your doctor if you observe: Inability to urinate, Uncontrolled pain Additional Instructions: Take coumadin 15mg 01/07/21 PM dose. Repeat INR 01/08/21 as well as BMP. Monitor blood pressure twice daily at home and record findings over the next week. If blood pressure is above goal, you may need additional blood pressure medication added at PCP follow up as your losartan and chlorthalidone have been discontinued. Overall, your blood pressure trend during admission has been appropriate. Allergies/Adverse Reactions: Allergies adhesive tape Allergy (Unknown, Verified 01/02/21 16:34) Unknown Sulfa (Sulfonamide Antibiotics) Allergy (Verified 01/02/21 16:34) Rash Medications to take at Discharge metoprolol succinate 100 mg capsule sprinkle, ext. release 24 hr 100 mg PO QHS 09/23/18 Aspirin [Aspirin, Baby] 81 mg PO QHS #0 03/13/20 ascorbic acid (vitamin C) 500 mg tablet 500 mg PO DAILY tab 07/07/20 omeprazole 20 mg capsule,delayed release 20 mg PO QHS #90 cap 07/25/20 montelukast 10 mg tablet 10 mg PO QHS #90 tab 08/31/20 levothyroxine 100 mcg tablet 100 mcg PO QHS #90 tab 09/27/20 Ferrous Sulfate 325 mg PO QODAY 01/03/21 Liraglutide [Victoza] 1.8 mg SC DAILY 01/03/21 Acetaminophen [Tylenol] 1,000 mg PO Q8H tablet 01/07/21 Insulin Glargine [Lantus SoloStar Pen] 20 units SC BID #1 kit 01/07/21 Oxycodone [Oxyir] 5 - 10 mg PO Q4H PRN PRN 3 Days #20 tablet 01/07/21 Pen Needle, Diabetic [Insulin Pen Needle] 1 each MC BID #1 kit 01/07/21 Warfarin Sodium 10 mg PO DAILY #0 01/07/21 cycloBENZAPRine HCl [Flexeril] 10 mg PO TID PRN PRN #20 tablet 01/07/21 The following prescriptions were given: cycloBENZAPRine HCl [Flexeril] 10 mg PO TID PRN PRN #20 tablet PRN Reason: Spasms Transmission Status: Pending to [facility] Pen Needle, Diabetic [Insulin Pen Needle] 1 each MC BID #1 kit Transmission [facility]: [facility] Insulin Glargine [Lantus SoloStar Pen] 20 units SC BID #1 kit Transmission Status: [facility] Oxycodone [Oxyir] 5 - 10 mg PO Q4H PRN PRN 3 Days #20 tablet PRN Reason: Pain Score 6-10 Transmission Status: Received by [facility] Orders to be completed after discharge: Basic Metabolic Profile (BMP) Time Frame: 1 Day, Facility: [facility], Location: Laboratory Primary Care Physician: Jonas Sweet MD [Primary Care Provider] - As soon as possible Please follow up with your Primary Care Physician in: Within one week Test Results: Test results from this visit will be discussed in further detail at your follow-up appointment, if applicable. Please Follow Up With: Rao Copeland MD - Nephrology When: 1 Week Please Follow Up With: Primary Wardrobe Custodian When: As scheduled Proposed Discharge Date: 01/07/21
--- NOTE | 2021-01-07 10:32 | DS.PCM_ITS ---
<Kimberly Ann NP - Last Filed: 01/07/21 10:57> Discharge Date and Diagnosis - Problem List Patient Problems: Active and Suspected Problems (Last Reviewed 01/02/21 @ 23:58 by ARIANNE Delcid) Kidney infarction (Acute) Date of Admission: 01/02/21 Date of Discharge: 01/07/21 - Primary Discharge Diagnosis Acute Problems: Active Problems (Last Reviewed 01/02/21 @ 23:58 by ARIANNE Delcid) 1. 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 History of bicuspid valve status post aortic valve replacement-history of AVR x3, most recently winter 2019. 3. Hypertension 4. Hyperlipidemia 5. PCOS 6. Obesity 7. Type 2 diabetes mellitus 8. Hypothyroidism - Secondary Discharge Diagnosis Chronic Problems: Chronic Problems (Last Reviewed 01/02/21 @ 23:58 by ARIANNE Delcid) Aortic stenosis due to bicuspid aortic valve (Chronic) Hypothyroidism (Chronic) Type 2 diabetes mellitus (Chronic) Hypertension (Chronic) Hospital Course and Treatment Imaging Results: Diagnostic Data Abdomen/Pelvis CT 01/02/21 20:31 IMPRESSION: Enlarged fatty liver. Diminished cortical enhancement of the right kidney right kidney. Cortical infarct cannot be excluded. Electronically Signed: Jean-Pierre Cobb DO at 21:49 EDT Tel [phone], Service support , Renal Ultrasound 01/03/21 09:31 IMPRESSION: Focal area of heterogeneous echotexture of the anterior superior cortex of the right kidney as described. This most likely corresponds to the recent CT findings. Electronically Signed: Rhys Chaevz MD at 15:14 EDT , Service support , Echocardiogram 01/04/21 10:42 Interpretation Summary The estimated ejection fraction is 55 %. septal hypokinesis likely related to prior valve surgery Stable appearing mechanical aortic valve apparatus. Ordering Physician: Kimberly Ann Referring Physician: Jonas Sweet Performed By: Jackeline Cronin RDCS, RVT Renal Artery Duplex 01/04/21 18:30 Interpretation Summary Proximal abdominal aorta 1.16 x 1.17 cm in diameter Less than 60% stenosis bilateral renal arteries in the proximal and mid portions and demonstrate patency Right renal length 12.17 cm Left renal length 11.17 cm Ordering Physician: Dominick Pena Referring Physician: Jonas Sweet Performed By: Laurie Tillman, RVMeir Dr. Farmer- Nephrology Dr. Pena- Vascular Operations: None Procedures: 2-D Echocardiogram Summary of Care Provided: The patient is a 35 year old F admitted 01/02/21 due to right flank pain. 1. 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 Echocardiogram completed and demonstrates an EF of 55%, stable appearing mechanical aortic valve apparatus. Renal artery duplex ultrasound demonstrates patent renal arteries. Vascular surgery consulted during admission who states there is no indication for intervention at this time. Nephrology consulted, patient will discontinue losartan and chlorthalidone and follow-up with nephrology as outpatient to follow BMP. On heparin drip during admission. Patient will take increased dose of Coumadin 15 mg 01/07/21 and repeat INR in a.m. 01/08/2021. INR at discharge 1.9. Will order repeat BMP in a.m. as well. Follow-up with PCP and nephrology in 1 week. Follow-up with primary computer forensics examiner as scheduled. 2. History of bicuspid valve status post aortic valve replacement-history of AVR x3, most recently winter 2019. Echocardiogram demonstrates an EF of 55%, stable appearance of aortic valve apparatus. 3. Hypertension-stable, continue metoprolol. Losartan and chlorthalidone discontinued. Patient will monitor blood pressure twice daily over the next week at home and document findings for PCP. If patient's blood pressure is trending above goal, she may require additional BP agent. 4. Hyperlipidemia-not on statin, outpatient follow-up. 5. PCOS-metformin on hold. 6. Obesity-encouraged diet and lifestyle modifications. 7. Type 2 diabetes mellitus-metformin on hold. Initiated on Lantus 20 units twice daily. May resume Victoza at discharge. 8. Hypothyroidism-continue Synthroid. General: Alert, Oriented x3, Cooperative HEENT: Atraumatic, PERRLA, EOMI, Normocephalic Neck: Supple, No JVD, Negative Carotid Bruits Lungs: Clear to auscultation, Normal air movement Cardiovascular: Regular rate, Regular Rhythm, Murmur - + Abdomen: Bowel Sounds Present, Soft, Non Tender, Non-Distended Extremities: No clubbing, No cyanosis, No edema, Capillary Refill Less than 3 Seconds Skin: No rashes, No breakdown Musculoskeletal: No Tenderness to Palpation of Joints or Extremities Neurological: Cranial nerves II-XII grossly intact, Neuro grossly intact Psych/Mental Status: Normal Affect, Appropriate Patient seen and examined prior to discharge. Physical assessment as noted above. Patient is stable for discharge with follow up recommendations as noted above. This patient was seen by ARIANNE aBrdales under the supervision of Dr. Cuellar. Patient Problems: Active and Suspected Problems (Last Reviewed 01/02/21 @ 23:58 by ARIANNE Delcid) Kidney infarction (Acute) - Physical Exam Vitals/I&O's: Vital Signs Temp Pulse Resp BP Pulse Ox 96.5 F L 70 18 137/86 H 100 01/07/21 08:49 01/07/21 08:49 01/07/21 08:49 01/07/21 08:49 01/07/21 08:49 Oxygen Delivery Method Room Air Weight: 216 lb 7.903 oz Body Mass Index (BMI) 33.9 Finger Stick Blood Glucose 206 Intake and Output for Last 24 Hours 01/05/21 01/06/21 01/07/21 23:59 23:59 23:59 Intake Total 1090 / 1090 1480 / 1480 363.47 / 363.47 Output Total 500 / 500 Balance 590 / 590 1480 / 1480 363.47 / 363.47 Laboratory Results 01/06/21 09:12: POC Glucose 296 H 01/06/21 11:32: POC Glucose 272 H 01/06/21 16:53: POC Glucose 263 H 01/06/21 21:11: POC Glucose 274 H 01/07/21 04:55: WBC 8.5, RBC 3.96 L, Hgb 12.5, Hct 37.6, MCV 94.9, MCH 31.6, MCHC 33.2, RDW Std Deviation 42.2, RDW Coeff of Darren 11.9, Plt Count 268, MPV 10.5, Immature Gran % (Auto) 1.900 H, Neut % (Auto) 66.7, Lymph % (Auto) 18.9 L, [place] % (Auto) 9.0, Eos % (Auto) 2.7, Baso % (Auto) 0.8, Absolute Neuts (auto) 5.6, Absolute Lymphs (auto) 1.60, Nucleated RBC % 0 01/07/21 04:55: PT 21.2 H, INR 1.9, APTT 81.4 H 01/07/21 04:55: Sodium 133 L, Potassium 4.1, Chloride 97 L, Carbon Dioxide 31.0, Anion Gap 5, BUN 17, Creatinine 1.31 H, Estim Creat Clear Calc 57.73, Est GFR (MDRD) Af Amer 59 L, Est GFR (MDRD) Non-Af 49 L, BUN/Creatinine Ratio 13.0, Glucose 244 H, Calcium 9.0 01/07/21 06:53: POC Glucose 222 H Current Medications Acetaminophen (Acetaminophen 500 Mg Tablet) 1,000 mg PO Q8H [facility] Last Admin: 01/07/21 08:55 Dose: 1,000 mg Documented by: Ascorbic Acid (Ascorbic Acid 500 Mg Tablet) 500 mg PO DAILY [facility] Last Admin: 01/07/21 08:55 Dose: 500 mg Documented by: Aspirin (Aspirin 81 Mg Tab.Chew) 81 mg PO QHS [facility] Last Admin: 01/06/21 21:14 Dose: 81 mg Documented by: Cyclobenzaprine HCl (Cyclobenzaprine Hcl 10 Mg Tablet) 10 mg PO TID PRN PRN PRN Reason: SPASMS Last Admin: 01/07/21 06:54 Dose: 10 mg Documented by: Docusate Sodium (Docusate Sodium 100 Mg Capsule) 100 mg PO BID PRN PRN PRN Reason: Constipation Last Admin: 01/05/21 16:54 Dose: 100 mg Documented by: Ferrous Sulfate (Ferrous Sulfate 325 Mg Tablet) 325 mg PO QODAY@1200 [facility] Last Admin: 01/05/21 11:47 Dose: 325 mg Documented by: Heparin Sodium (Porcine) (Heparin Injection (Vial) 5,000 Unit/Ml Vial) 0 unit IV UD PRN; Protocol PRN Reason: dose adjustment Last Admin: 01/03/21 12:03 Dose: 1,000 unit Documented by: Sodium Chloride () 250 mls @ 15 mls/hr IV .[id number] PRN PRN Reason: Saline Flush Sodium Chloride () 250 mls @ 15 mls/hr IV .[id number] PRN PRN Reason: Additional IVPB Infusion Heparin Sodium/Dextrose () 25,000 units in 250 mls @ 14 mls/hr IV .[id number] [facility]; Protocol Last Titration: 01/07/21 09:12 Dose: 1,500 units/hr, 15 mls/hr Documented by: Insulin Glargine (Insulin Glargine 100 Units/Ml Pen) 15 units SC BID [facility] Last Admin: 01/07/21 08:54 Dose: 15 u Documented by: Insulin Human Lispro (Insulin Lispro 100 Unit/Ml Insuln.Pen) 0 unit SC ACHS [facility]; Protocol Last Admin: 01/07/21 06:54 Dose: 6 units Documented by: Levothyroxine Sodium (Levothyroxine 100 Mcg Tablet) 100 mcg PO DAILY@0600 [facility] Last Admin: 01/07/21 06:54 Dose: 100 mcg Documented by: Melatonin (Melatonin 3 Mg Tablet) 3 mg PO QHS PRN PRN PRN Reason: INSOMNIA Metoprolol Succinate (Metoprolol(Xl)Succ 100 Mg Tablet) 100 mg PO QHS [facility] Last Admin: 01/06/21 21:14 Dose: 100 mg Documented by: Montelukast Sodium (Montelukast 10 Mg Tablet) 10 mg PO QHS [facility] Last Admin: 01/06/21 21:14 Dose: 10 mg Documented by: Morphine Sulfate (Morphine 4 Mg/Ml Syringe) 4 mg IV Q3H PRN PRN PRN Reason: Pain Score 6-10 Last Admin: 01/04/21 08:15 Dose: 4 mg Documented by: Ondansetron HCl (Ondansetron 4 Mg/2 Ml Vial) 4 mg IV Q8H PRN PRN PRN Reason: NAUSEA/VOMITING Last Admin: 01/03/21 12:04 Dose: 4 mg Documented by: Oxycodone HCl (Oxycodone 5 Mg Tablet) 5 - 10 mg PO Q4H PRN PRN PRN Reason: Pain Score 4-5 Last Admin: 01/07/21 02:32 Dose: 5 mg Documented by: Pantoprazole Sodium ([facility]oprazole Sodium 20 Mg Tablet) [facility] Last Admin: 01/06/21 21:14 Dose: 20 mg Documented by: Polyethylene Glycol (Polyethylene Glycol 3350 17 Gm Packet) 17 gm PO DAILY [facility] Last Admin: 01/06/21 12:28 Dose: 17 gm Documented by: Prochlorperazine Edisylate (Prochlorperazine 10 Mg/2 Ml Vial) 5 mg IV Q4H PRN PRN PRN Reason: Breakthrough Nausea/Vomiting Sodium Chloride (0.9% Saline Lock 10 Ml Syringe) 10 - 40 ml IV UD PRN PRN Reason: SALINE FLUSH Warfarin Sodium (Warfarin 5 Mg Tablet) 15 mg PO DAILY@1700 [facility] Last Admin: 01/06/21 16:59 Dose: 15 mg Documented by: Discharge Diet: Carb Control Diet Discharge Activity: Return to Normal Activity Call your doctor if you observe: Inability to urinate, Uncontrolled pain Home Medications: Medications to take at Discharge metoprolol succinate 100 mg capsule sprinkle, ext. release 24 hr 100 mg PO QHS 09/23/18 Aspirin [Aspirin, Baby] 81 mg PO QHS #0 03/13/20 ascorbic acid (vitamin C) 500 mg tablet 500 mg PO DAILY tab 07/07/20 omeprazole 20 mg capsule,delayed release 20 mg PO QHS #90 cap 07/25/20 montelukast 10 mg tablet 10 mg PO QHS #90 tab 08/31/20 levothyroxine 100 mcg tablet 100 mcg PO QHS #90 tab 09/27/20 Ferrous Sulfate 325 mg PO QODAY 01/03/21 Liraglutide [Victoza] 1.8 mg SC DAILY 01/03/21 Acetaminophen [Tylenol] 1,000 mg PO Q8H tablet 01/07/21 Insulin Glargine [Lantus SoloStar Pen] 20 units SC BID #1 kit 01/07/21 Oxycodone [Oxyir] 5 - 10 mg PO Q4H PRN PRN 3 Days #20 tablet 01/07/21 Pen Needle, Diabetic [Insulin Pen Needle] 1 each MC BID #1 kit 01/07/21 Warfarin Sodium 10 mg PO DAILY #0 01/07/21 cycloBENZAPRine HCl [Flexeril] 10 mg PO TID PRN PRN #20 tablet 01/07/21 Following Prescriptions Were Given to Patient: cycloBENZAPRine HCl [Flexeril] 10 mg PO TID PRN PRN #20 tablet PRN Reason: Spasms Transmission Status: Received by [facility] Pen Needle, Diabetic [Insulin Pen Needle] 1 each MC BID #1 kit Transmission Status: Received by [facility] Insulin Glargine [Lantus SoloStar Pen] 20 units SC BID #1 kit Transmission Status: Received by [facility] Oxycodone [Oxyir] 5 - 10 mg PO Q4H PRN PRN 3 Days #20 tablet PRN Reason: Pain Score 6-10 Transmission Status: Received by [facility] Other Amb Orders: Basic Metabolic Profile (BMP) Time Frame: 1 Day, Facility: [facility], Location: Laboratory Primary Care Physician: Jonas Sweet MD [Primary Care Provider] - As soon as possible Please follow up with your Primary Care Physician in: Within one week Please Follow Up With: Rao Copeland MD - Nephrology When: 1 Week Please Follow Up With: Primary Splicing Machine Operator When: As scheduled Disposition: Home Minutes spent on discharge:: 35 Patient Condition:: Stable Medical Necessity - Tobacco Use Smoking Status: Never smoker Tobacco Use: Non-smoker Meaningful Use Info Meaningful Use Diagnoses (Choose all that apply): None applicable <Kittoe,Topher - Last Filed: 01/07/21 11:07> Discharge Date and Diagnosis - Primary Discharge Diagnosis Acute Problems: Active Problems (Last Reviewed 01/02/21 @ 23:58 by ARIANNE Delcid) Kidney infarction (Acute) - Secondary Discharge Diagnosis Chronic Problems: Chronic Problems (Last Reviewed 01/02/21 @ 23:58 by ARIANNE Delcid) Aortic stenosis due to bicuspid aortic valve (Chronic) Hypothyroidism (Chronic) Type 2 diabetes mellitus (Chronic) Hypertension (Chronic) Hospital Course and Treatment Summary of Care Provided: This patient was seen in conjunction with ARIANNE Bardales. I have independently interviewed and examined the patient and reviewed pertinent historical, laboratory, and other data. Please refer to NATALIE Bardales's note for details of this patient's presentation, findings, and recommendations. I have reviewed ARIANNE Bardales's note and concur with documented findings. 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 Patient was started on heparin admitted to a monitored bed for subsequent evaluation Assessment: 1. Right flank pain secondary to right renal cortical infarct 2. History of bicuspid valve status post aortic valve replacement systemic anticoagulation 3. Essential hypertension 4. Obesity with BMI of 33.9 5. Polycystic ovarian disease 6. Hypothyroidism 7. Diabetes mellitus type 2 8. Dyslipidemia 9. DVT prophylaxis Hospital course: As documented above - Physical Exam Vitals/I&O's: Vital Signs Temp Pulse Resp BP Pulse Ox 96.5 F L 70 18 137/86 H 100 01/07/21 08:49 01/07/21 08:49 01/07/21 08:49 01/07/21 08:49 01/07/21 08:49 Oxygen Delivery Method Room Air Weight: 98.2 kg Body Mass Index (BMI) 33.9 Finger Stick Blood Glucose 206 Intake and Output for Last 24 Hours 01/05/21 01/06/21 01/07/21 23:59 23:59 23:59 Intake Total 1090 / 1090 1480 / 1480 363.47 / 363.47 Output Total 500 / 500 Balance 590 / 590 1480 / 1480 363.47 / 363.47 Laboratory Results 01/06/21 09:12: POC Glucose 296 H 01/06/21 11:32: POC Glucose 272 H 01/06/21 16:53: POC Glucose 263 H 01/06/21 21:11: POC Glucose 274 H 01/07/21 04:55: WBC 8.5, RBC 3.96 L, Hgb 12.5, Hct 37.6, MCV 94.9, MCH 31.6, MCHC 33.2, RDW Std Deviation 42.2, RDW Coeff of Darren 11.9, Plt Count 268, MPV 10.5, Immature Gran % (Auto) 1.900 H, Neut % (Auto) 66.7, Lymph % (Auto) 18.9 L, [place] % (Auto) 9.0, Eos % (Auto) 2.7, Baso % (Auto) 0.8, Absolute Neuts (auto) 5.6, Absolute Lymphs (auto) 1.60, Nucleated RBC % 0 01/07/21 04:55: PT 21.2 H, INR 1.9, APTT 81.4 H 01/07/21 04:55: Sodium 133 L, Potassium 4.1, Chloride 97 L, Carbon Dioxide 31.0, Anion Gap 5, BUN 17, Creatinine 1.31 H, Estim Creat Clear Calc 57.73, Est GFR (MDRD) Af Amer 59 L, Est GFR (MDRD) Non-Af 49 L, BUN/Creatinine Ratio 13.0, Glucose 244 H, Calcium 9.0 01/07/21 06:53: POC Glucose 222 H Current Medications Acetaminophen (Acetaminophen 500 Mg Tablet) 1,000 mg PO Q8H [facility] Last Admin: 01/07/21 08:55 Dose: 1,000 mg Documented by: Ascorbic Acid (Ascorbic Acid 500 Mg Tablet) 500 mg PO DAILY [facility] Last Admin: 01/07/21 08:55 Dose: 500 mg Documented by: Aspirin (Aspirin 81 Mg Tab.Chew) 81 mg PO QHS [facility] Last Admin: 01/06/21 21:14 Dose: 81 mg Documented by: Cyclobenzaprine HCl (Cyclobenzaprine Hcl 10 Mg Tablet) 10 mg PO TID PRN PRN PRN Reason: SPASMS Last Admin: 01/07/21 06:54 Dose: 10 mg Documented by: Docusate Sodium (Docusate Sodium 100 Mg Capsule) 100 mg PO BID PRN PRN PRN Reason: Constipation Last Admin: 01/05/21 16:54 Dose: 100 mg Documented by: Ferrous Sulfate (Ferrous Sulfate 325 Mg Tablet) 325 mg PO QODAY@1200 [facility] Last Admin: 01/05/21 11:47 Dose: 325 mg Documented by: Heparin Sodium (Porcine) (Heparin Injection (Vial) 5,000 Unit/Ml Vial) 0 unit IV UD PRN; Protocol PRN Reason: dose adjustment Last Admin: 01/03/21 12:03 Dose: 1,000 unit Documented by: Sodium Chloride () 250 mls @ 15 mls/hr IV .[id number] PRN PRN Reason: Saline Flush Sodium Chloride () 250 mls @ 15 mls/hr IV .[id number] PRN PRN Reason: Additional IVPB Infusion Heparin Sodium/Dextrose () 25,000 units in 250 mls @ 14 mls/hr IV .[id number] [facility]; Protocol Last Titration: 01/07/21 09:12 Dose: 1,500 units/hr, 15 mls/hr Documented by: Insulin Glargine (Insulin Glargine 100 Units/Ml Pen) 15 units SC BID [facility] Last Admin: 01/07/21 08:54 Dose: 15 u Documented by: Insulin Human Lispro (Insulin Lispro 100 Unit/Ml Insuln.Pen) 0 unit SC ACHS [facility]; Protocol Last Admin: 01/07/21 06:54 Dose: 6 units Documented by: Levothyroxine Sodium (Levothyroxine 100 Mcg Tablet) 100 mcg PO DAILY@0600 [facility] Last Admin: 01/07/21 06:54 Dose: 100 mcg Documented by: Melatonin (Melatonin 3 Mg Tablet) 3 mg PO QHS PRN PRN PRN Reason: INSOMNIA Metoprolol Succinate (Metoprolol(Xl)Succ 100 Mg Tablet) 100 mg PO QHS [facility] Last Admin: 01/06/21 21:14 Dose: 100 mg Documented by: Montelukast Sodium (Montelukast 10 Mg Tablet) 10 mg PO QHS [facility] Last Admin: 01/06/21 21:14 Dose: 10 mg Documented by: Morphine Sulfate (Morphine 4 Mg/Ml Syringe) 4 mg IV Q3H PRN PRN PRN Reason: Pain Score 6-10 Last Admin: 01/04/21 08:15 Dose: 4 mg Documented by: Ondansetron HCl (Ondansetron 4 Mg/2 Ml Vial) 4 mg IV Q8H PRN PRN PRN Reason: NAUSEA/VOMITING Last Admin: 01/03/21 12:04 Dose: 4 mg Documented by: Oxycodone HCl (Oxycodone 5 Mg Tablet) 5 - 10 mg PO Q4H PRN PRN PRN Reason: Pain Score 4-5 Last Admin: 01/07/21 02:32 Dose: 5 mg Documented by: Pantoprazole Sodium (Pantoprazole Sodium 20 Mg Tablet) 20 mg PO QHS [facility] Last Admin: 01/06/21 21:14 Dose: 20 mg Documented by: Polyethylene Glycol (Polyethylene Glycol 3350 17 Gm Packet) 17 gm PO DAILY [facility] Last Admin: 01/06/21 12:28 Dose: 17 gm Documented by: Prochlorperazine Edisylate (Prochlorperazine 10 Mg/2 Ml Vial) 5 mg IV Q4H PRN PRN PRN Reason: Breakthrough Nausea/Vomiting Sodium Chloride (0.9% Saline Lock 10 Ml Syringe) 10 - 40 ml IV UD PRN PRN Reason: SALINE FLUSH Warfarin Sodium (Warfarin 5 Mg Tablet) 15 mg PO DAILY@1700 [facility] Last Admin: 01/06/21 16:59 Dose: 15 mg Documented by: Inpatient E&M: [id number] [facility]
--- NOTE | 2021-01-07 10:32 | PCM.WORK.EX ---
Work/School Excuse Work/School Excuse for:: Patient Please excuse this person from:: Work From: 01/02/21 through: 01/14/21
[2021-01-09 12:08] LABS: Protein C Antigen 102 % (60-150); Protein C, Functional 148 % (73-180)
[2021-01-09 12:36] LABS: Anti-Cardiolipin Ab, IgG, Qn < 9 GPL U/mL (0-14); Anti-Cardiolipin Ab, IgM, Qn 11 MPL U/mL (0-12); Anti-Thrombin 3 AG, Immunol 75 % (72-124); Antithrombin 3 Function 127 % (75-135); Beta-2-Glycoprotein I IgA <9 (0-25); Beta-2-Glycoprotein I IgG <9 (0-20); Beta-2-Glycoprotein I IgM <9 (0-32)
--- NOTE | 2021-01-09 14:42 | CASEMGMT ---
JOSE GUADALUPE BELL Discharge F/U Phone Call LACE: 12 Strata: 3 Discharge date: 01/07/21 Call date: 01/09/21 Call time: [phone] Admission dx: Right renal infarction Pt states has been doing 'pretty good' since discharge. Pt states no questions regarding discharge instructions/medications. Pt states had f/u with PCP PA today and plans to see nephro next friday. Pt states only suggestion for [facility], would be better cafeteria options for diabetics and multifocal lens inspector updated at this time. Pt states no further questions/concerns/needs. [place] JOSE GUADALUPE BELL
== END 2021-01-07 13:05 | disposition home or self-care (01) | DRG 699 ==
LOC: ED 19:15 → PCU 23:36
PROVIDERS: Nurse Practitioner Family; Physician Assistant; Surgery; Admitting Provider Family Medicine; Emergency Provider Emergency Medicine; PCP Internal Medicine; Visit Provider Internal Medicine
DX: N28.0 Ischemia and infarction of kidney (principal); N17.9 Acute kidney failure, unspecified; Q23.1 Congenital insufficiency of aortic valve; E87.6 Hypokalemia; E11.9 Type 2 diabetes mellitus without complications; I10 Essential (primary) hypertension; E78.1 Pure hyperglyceridemia; E78.5 Hyperlipidemia, unspecified; E03.9 Hypothyroidism, unspecified; E28.2 Polycystic ovarian syndrome; J45.909 Unspecified asthma, uncomplicated; K21.9 Gastro-esophageal reflux disease without esophagitis; E66.9 Obesity, unspecified; Z68.33 Body mass index [BMI] 33.0-33.9, adult; Z79.01 Long term (current) use of anticoagulants; Z79.4 Long term (current) use of insulin; Z79.890 Hormone replacement therapy; Z79.899 Other long term (current) drug therapy; Z95.3 Presence of xenogenic heart valve; Z90.710 Acquired absence of both cervix and uterus
CPT/HCPCS: 36415; 74176; 74177; 76770; 80048; 80053; 81001; 81240; 81241; 82962; 83735; 85025; 85027; 85300; 85301; 85302; 85303; 85610; 85730; 86146; 86147; 93306; 93975; 99285; J7030; Q9967; A4216; J2405

== ENCOUNTER 2021-01-11 09:37 | Outpatient (RCR) | payer OTHER, SELFPAY ==
[2020-09-18 09:36] VITALS: BMI 33.0
[2020-12-19 09:03] LABS: International Normalized Ratio 1.4; Prothrombin Time (Protime)PT. 16.7 SECONDS (11.7-14.9)
[2020-12-19 09:19] LABS: Anion Gap 7 (5-15); BUN 12 mg/dL (7-18); BUN/Creat Ratio 16.8 RATIO (10-20); Calcium,Total 8.9 mg/dL (8.5-10.1); Chloride 99 mmol/L (98-107); Creatinine, Serum 0.71 mg/dL (0.55-1.02); EST Glomerular Filtration Rate 99 mL/min (>60); Est Glom Filt Rate - Afr Amer 119 mL/min (>60); Glucose 199 mg/dL (74-106); Potassium 3.7 mmol/L (3.5-5.1); Sodium Level 135 mmol/L (136-145)
[2020-12-25 11:38] LABS: International Normalized Ratio 1.6
[2021-01-08 10:25] LABS: International Normalized Ratio 2.4
[2021-01-08 10:48] LABS: Anion Gap 4 (5-15); BUN 17 mg/dL (7-18); BUN/Creat Ratio 13.7 RATIO (10-20); Calcium,Total 9.7 mg/dL (8.5-10.1); Chloride 100 mmol/L (98-107); Creatinine, Serum 1.24 mg/dL (0.55-1.02); EST Glomerular Filtration Rate 52 mL/min (>60); Est Glom Filt Rate - Afr Amer 63 mL/min (>60); Glucose 186 mg/dL (74-106); Potassium 4.2 mmol/L (3.5-5.1); Sodium Level 135 mmol/L (136-145)
[2021-01-11 10:37] LABS: International Normalized Ratio 2.4; Prothrombin Time (Protime)PT. 25.1 SECONDS (11.7-14.9)
[2021-01-11 10:51] LABS: Albumin, Serum 3.3 g/dL (3.2-5.0); BUN 15 mg/dL (7-18); BUN/Creat Ratio 13.3 RATIO (10-20); Calcium,Total 9.4 mg/dL (8.5-10.1); Chloride 103 mmol/L (98-107); Creatinine, Serum 1.13 mg/dL (0.55-1.02); EST Glomerular Filtration Rate 58 mL/min (>60); Est Glom Filt Rate - Afr Amer 70 mL/min (>60); Glucose 152 mg/dL (74-106); Phosphorus 3.6 mg/dL (2.5-4.9); Potassium 4.3 mmol/L (3.5-5.1); Sodium Level 136 mmol/L (136-145)
== END 2021-01-11 18:00 | disposition home or self-care (01) ==
LOC: LAB 09:37
PROVIDERS: Nurse Practitioner Family; PCP Internal Medicine; Referring Provider Internal Medicine Cardiovascular Disease; Visit Provider Internal Medicine Cardiovascular Disease
DX: Z95.4 Presence of other heart-valve replacement (principal)
CPT/HCPCS: 36415; 80048; 80069; 85610

== ENCOUNTER 2021-02-06 06:44 | Outpatient (RCR) | payer OTHER, SELFPAY ==
[2021-01-09 13:03] VITALS: BMI 34.0
[2021-01-18 10:25] LABS: International Normalized Ratio 1.8; Prothrombin Time (Protime)PT. 20.5 SECONDS (11.7-14.9)
[2021-01-25 11:19] LABS: International Normalized Ratio 2.1; Prothrombin Time (Protime)PT. 22.3 SECONDS (11.7-14.9)
[2021-01-25 11:34] LABS: AST(SGOT) 24 U/L (15-37); Alanine Aminotransfer ALT/SGPT 37 U/L (13-56); Alkaline Phosphatase 56 U/L (45-117); Anion Gap 4 (5-15); BUN 14 mg/dL (7-18); BUN/Creat Ratio 14.3 RATIO (10-20); Calcium,Total 9.2 mg/dL (8.5-10.1); Chloride 104 mmol/L (98-107); Creatinine, Serum 0.98 mg/dL (0.55-1.02); EST Glomerular Filtration Rate 68 mL/min (>60); Est Glom Filt Rate - Afr Amer 83 mL/min (>60); Glucose 186 mg/dL (74-106); Potassium 4.3 mmol/L (3.5-5.1); Sodium Level 135 mmol/L (136-145)
[2021-02-01 07:57] LABS: International Normalized Ratio 1.5; Prothrombin Time (Protime)PT. 17.7 SECONDS (11.7-14.9)
[2021-02-06 08:02] LABS: Anion Gap 4 (5-15); BUN 15 mg/dL (7-18); BUN/Creat Ratio 12.9 RATIO (10-20); Calcium,Total 9.2 mg/dL (8.5-10.1); Chloride 100 mmol/L (98-107); Creatinine, Serum 1.16 mg/dL (0.55-1.02); EST Glomerular Filtration Rate 56 mL/min (>60); Est Glom Filt Rate - Afr Amer 68 mL/min (>60); Glucose 153 mg/dL (74-106); Potassium 3.6 mmol/L (3.5-5.1); Sodium Level 134 mmol/L (136-145)
[2021-02-06 08:27] LABS: International Normalized Ratio 2.1; Prothrombin Time (Protime)PT. 22.6 SECONDS (11.7-14.9)
== END 2021-02-06 18:00 | disposition home or self-care (01) ==
LOC: LAB 06:44
PROVIDERS: Physician Assistant; PCP Internal Medicine; Referring Provider Internal Medicine Cardiovascular Disease; Visit Provider Internal Medicine Cardiovascular Disease
DX: I10 Essential (primary) hypertension (principal); Z95.4 Presence of other heart-valve replacement
CPT/HCPCS: 36415; 80048; 82247; 84075; 84450; 84460; 85610

== ENCOUNTER 2021-02-27 05:56 | Outpatient (RCR) | payer OTHER, SELFPAY ==
[2021-01-30 10:51] VITALS: BMI 34.0
[2021-02-13 07:55] LABS: International Normalized Ratio 2.5; Prothrombin Time (Protime)PT. 25.8 SECONDS (11.7-14.9)
[2021-02-13 08:18] LABS: Anion Gap 5 (5-15); BUN 17 mg/dL (7-18); BUN/Creat Ratio 16.2 RATIO (10-20); Calcium,Total 9.5 mg/dL (8.5-10.1); Chloride 101 mmol/L (98-107); Creatinine, Serum 1.05 mg/dL (0.55-1.02); EST Glomerular Filtration Rate 63 mL/min (>60); Est Glom Filt Rate - Afr Amer 76 mL/min (>60); Glucose 154 mg/dL (74-106); Sodium Level 137 mmol/L (136-145)
[2021-02-20 08:08] LABS: Anion Gap 8 (5-15); BUN 15 mg/dL (7-18); BUN/Creat Ratio 12.5 RATIO (10-20); Calcium,Total 8.8 mg/dL (8.5-10.1); Chloride 102 mmol/L (98-107); EST Glomerular Filtration Rate 54 mL/min (>60); Est Glom Filt Rate - Afr Amer 65 mL/min (>60); Glucose 220 mg/dL (74-106); Potassium 4.2 mmol/L (3.5-5.1); Sodium Level 138 mmol/L (136-145)
[2021-02-27 06:44] LABS: Anion Gap 6 (5-15); BUN 15 mg/dL (7-18); BUN/Creat Ratio 14.3 RATIO (10-20); Calcium,Total 8.8 mg/dL (8.5-10.1); Chloride 104 mmol/L (98-107); Creatinine, Serum 1.05 mg/dL (0.55-1.02); EST Glomerular Filtration Rate 63 mL/min (>60); Est Glom Filt Rate - Afr Amer 76 mL/min (>60); Glucose 170 mg/dL (74-106); Potassium 3.8 mmol/L (3.5-5.1); Sodium Level 137 mmol/L (136-145)
== END 2021-02-27 18:00 | disposition home or self-care (01) ==
LOC: LAB 05:56
PROVIDERS: PCP Internal Medicine; Referring Provider Internal Medicine Cardiovascular Disease; Visit Provider Internal Medicine
DX: I10 Essential (primary) hypertension (principal); Z95.4 Presence of other heart-valve replacement
CPT/HCPCS: 36415; 80048; 85610

== ENCOUNTER → 2021-04-10 06:28 | Outpatient (CLI) | payer OTHER, SELFPAY ==
[2021-03-05 08:23] VITALS: BMI 34.0
[2021-04-10 07:21] LABS: Protein, Urine (Random) 47.3 mg/dL (<11.9); Protein:Creat Ratio 223 mg/g CRE (0-200)
== END ==
PROVIDERS: PCP Internal Medicine; Referring Provider Internal Medicine Nephrology; Visit Provider Internal Medicine Nephrology
DX: N17.9 Acute kidney failure, unspecified (principal)
CPT/HCPCS: 82570; 84156

== ENCOUNTER 2021-05-16 15:59 | Outpatient (CLI) | payer OTHER, SELFPAY ==
[2021-05-16 16:15] VITALS: BP 142/90; PULSE 92; RESP 16; TEMP 36.8; O2SAT 98; BMI 34.4
[2021-05-16] MEDS: 0.9% Saline Lock 10 ML Syringe IV (16:26)
[2021-05-16 16:58] VITALS: BP 157/91; PULSE 89; RESP 16; TEMP 36.7; O2SAT 100
[2021-05-16 17:58] VITALS: BP 157/90; PULSE 88; RESP 16; TEMP 36.7; O2SAT 100
== END 2021-05-16 18:01 | disposition home or self-care (01) ==
LOC: ICUOUT 15:59 → MS2 16:01
PROVIDERS: PCP Internal Medicine; Referring Provider Nurse Practitioner Acute Care; Visit Provider Nurse Practitioner Acute Care
DX: Z23 Encounter for immunization (principal); U07.1 COVID-19
CPT/HCPCS: J7050; M0243; A4216; Q0244

== ENCOUNTER → 2021-07-16 08:59 | Outpatient (CLI) | payer OTHER, SELFPAY ==
[2021-07-16 13:41] LABS: Cholesterol 189 mg/dL (200); High Density Lipoprotein 33 mg/dL; Triglycerides 272 mg/dL; Very Low Density Lipoprotein 54 mg/dL (5-40)
[2021-07-17 15:09] LABS: ANTINUCLEAR ANTIBODIES DIRECT Positive (Negative); Anti-Centromere B Ab <0.2 AI (0.0-0.9); Anti-Chromatin <0.2 AI (0.0-0.9); Anti-Jo <0.2 AI (0.0-0.9); Anti-Scleroderma-70 AB <0.2 AI (0.0-0.9); RNP Ab 2.6 AI (0.0-0.9); SJOGREN'S Anti-SS-A test < 0.2 AI (0.0-0.9); SJOGREN'S Anti-SS-B test < 0.2 AI (0.0-0.9); Smith Ab <0.2 AI (0.0-0.9)
[2021-07-17 16:37] LABS: Anti-dsDNA Ab <1 IU/mL (0-9)
== END ==
PROVIDERS: PCP Internal Medicine; Visit Provider Internal Medicine
DX: E78.5 Hyperlipidemia, unspecified (principal); R76.8 Other specified abnormal immunological findings in serum
CPT/HCPCS: 36415; 80061; 86038; 86225; 86235

== ENCOUNTER 2021-10-22 06:59 | Outpatient (CLI) | payer OTHER, SELFPAY ==
[2021-10-22 07:52] LABS: ALB/GLOB Ratio 0.8 RATIO (0.9-2.4); AST(SGOT) 17 U/L (15-37); Alanine Aminotransfer ALT/SGPT 28 U/L (13-56); Albumin, Serum 3.4 g/dL (3.2-5.0); Alkaline Phosphatase 58 U/L (45-117); Anion Gap 4 (5-15); BUN 15 mg/dL (7-18); BUN/Creat Ratio 17.8 RATIO (10-20); Calcium,Total 8.3 mg/dL (8.5-10.1); Chloride 107 mmol/L (98-107); Cholesterol 152 mg/dL (200); Creatinine, Serum 0.84 mg/dL (0.55-1.02); EST Glomerular Filtration Rate 81 mL/min (>60); Est Glom Filt Rate - Afr Amer 98 mL/min (>60); Globulin 4.3 g/dL (2.2-4.2); Glucose 160 mg/dL (74-106); High Density Lipoprotein 31 mg/dL; Potassium 4.1 mmol/L (3.5-5.1); Protein, Total 7.7 g/dL (6.4-8.2); Sodium Level 138 mmol/L (136-145); Thyroid Stim Hormone (TSH) 4.85 uIU/mL (0.358-3.74); Triglycerides 273 mg/dL; Very Low Density Lipoprotein 55 mg/dL (5-40)
[2021-10-22 08:14] LABS: Hemoglobin A1c 6.9 % (3.8-5.6)
== END 2021-10-22 23:59 | disposition home or self-care (01) ==
LOC: LAB 07:00
PROVIDERS: PCP Internal Medicine; Referring Provider Internal Medicine; Visit Provider Internal Medicine
DX: E11.9 Type 2 diabetes mellitus without complications (principal); E78.5 Hyperlipidemia, unspecified; E03.9 Hypothyroidism, unspecified
CPT/HCPCS: 36415; 80053; 80061; 83036; 84443

== ENCOUNTER 2021-11-12 10:05 | Outpatient (CLI) | payer OTHER, SELFPAY ==
[2021-11-12 12:08] LABS: Anion Gap 4 (5-15); BUN 19 mg/dL (7-18); BUN/Creat Ratio 17.9 RATIO (10-20); Calcium,Total 9.3 mg/dL (8.5-10.1); Chloride 103 mmol/L (98-107); Creatinine, Serum 1.06 mg/dL (0.55-1.02); EST Glomerular Filtration Rate 62 mL/min (>60); Est Glom Filt Rate - Afr Amer 75 mL/min (>60); Glucose 160 mg/dL (74-106); Potassium 3.8 mmol/L (3.5-5.1); Sodium Level 137 mmol/L (136-145); Thyroid Stim Hormone (TSH) 1.98 uIU/mL (0.358-3.74)
== END 2021-11-12 23:59 | disposition home or self-care (01) ==
PROVIDERS: PCP Internal Medicine; Referring Provider Internal Medicine; Visit Provider Internal Medicine
DX: I10 Essential (primary) hypertension (principal); E03.9 Hypothyroidism, unspecified
CPT/HCPCS: 36415; 80048; 84443

== ENCOUNTER 2021-11-29 06:34 | Outpatient (CLI) | payer OTHER, SELFPAY ==
[2021-11-29 08:36] LABS: Anion Gap 5 (5-15); BUN 22 mg/dL (7-18); BUN/Creat Ratio 19.5 RATIO (10-20); Calcium,Total 9.2 mg/dL (8.5-10.1); Chloride 98 mmol/L (98-107); Creatinine, Serum 1.13 mg/dL (0.55-1.02); EST Glomerular Filtration Rate 58 mL/min (>60); Est Glom Filt Rate - Afr Amer 70 mL/min (>60); Glucose 216 mg/dL (74-106); Potassium 3.5 mmol/L (3.5-5.1); Sodium Level 134 mmol/L (136-145)
== END 2021-11-29 23:59 | disposition home or self-care (01) ==
LOC: LAB 06:35
PROVIDERS: PCP Internal Medicine; Referring Provider Internal Medicine; Visit Provider Internal Medicine
DX: I10 Essential (primary) hypertension (principal)
CPT/HCPCS: 36415; 80048

== ENCOUNTER → 2022-01-30 | Outpatient (CLI) | payer OTHER, SELFPAY ==
[2022-01-30 15:25] LABS: Anion Gap 6 (5-15); BUN 14 mg/dL (7-18); BUN/Creat Ratio 13.3 RATIO (10-20); Calcium,Total 9.1 mg/dL (8.5-10.1); Chloride 102 mmol/L (98-107); Creatinine, Serum 1.05 mg/dL (0.55-1.02); EST Glomerular Filtration Rate 63 mL/min (>60); Est Glom Filt Rate - Afr Amer 76 mL/min (>60); Glucose 156 mg/dL (74-106); Potassium 3.7 mmol/L (3.5-5.1); Sodium Level 136 mmol/L (136-145)
== END | disposition home or self-care (01) ==
LOC: BIMLAB 13:16
PROVIDERS: PCP Internal Medicine; Referring Provider Internal Medicine; Visit Provider Internal Medicine
DX: I10 Essential (primary) hypertension (principal)
CPT/HCPCS: 36415; 80048

== ENCOUNTER → 2022-04-15 | Outpatient (CLI) | payer OTHER, SELFPAY ==
[2022-04-15 11:57] LABS: International Normalized Ratio 2.6; Prothrombin Time (Protime)PT. 27.6 SECONDS (11.7-14.9)
== END | disposition home or self-care (01) ==
PROVIDERS: PCP Internal Medicine; Referring Provider Internal Medicine Cardiovascular Disease; Visit Provider Internal Medicine Cardiovascular Disease
DX: Z95.2 Presence of prosthetic heart valve (principal)
CPT/HCPCS: 36415; 85610

== ENCOUNTER → 2022-10-07 | Outpatient (CLI) | payer BC, SELFPAY ==
[2022-10-07 16:53] LABS: ALB/GLOB Ratio 0.8 RATIO (0.9-2.4); AST(SGOT) 14 U/L (15-37); Alanine Aminotransfer ALT/SGPT 26 U/L (13-56); Albumin, Serum 3.6 g/dL (3.2-5.0); Alkaline Phosphatase 55 U/L (45-117); Amylase 50 U/L (25-115); Anion Gap 7 (5-15); BUN 17 mg/dL (7-18); BUN/Creat Ratio 16.5 RATIO (10-20); Calcium,Total 8.7 mg/dL (8.5-10.1); Chloride 107 mmol/L (98-107); Creatinine, Serum 1.03 mg/dL (0.55-1.02); EST Glomerular Filtration Rate 64 mL/min (>60); Est Glom Filt Rate - Afr Amer 77 mL/min (>60); Globulin 4.6 g/dL (2.2-4.2); Glucose 143 mg/dL (74-106); Lipase 243 U/L (73-393); Potassium 3.9 mmol/L (3.5-5.1); Protein, Total 8.2 g/dL (6.4-8.2); Sodium Level 138 mmol/L (136-145)
== END | disposition home or self-care (01) ==
LOC: BIMLAB 15:43
PROVIDERS: PCP Internal Medicine; Referring Provider Internal Medicine; Visit Provider Internal Medicine
DX: R10.9 Unspecified abdominal pain (principal)
CPT/HCPCS: 36415; 80053; 82150; 83690

== ENCOUNTER → 2023-01-08 | Outpatient (CLI) | payer BC, SELFPAY ==
[2023-01-08 08:58] LABS: Vitamin B12 481 pg/mL (211-911)
[2023-01-08 10:33] LABS: Absolute Lymphocyte Count 1.94 X10^3/uL (0.83-4.51); Absolute Neutrophil Count 6.2 X10^3/uL (2.0-7.7); Basophil# 0.08 X10^3/uL; Basophil% 0.9 % (0-1); Eosinophil# 0.26 X10^3/uL; Eosinophils% 2.8 % (0-5); Hematocrit 40.5 % (37-47); Hemoglobin 13.8 g/dL (12.0-15.0); Lymphocyte # 1.94 X10^3/ul (0.83-4.51); Mean Corp Hgb Conc 34.1 g/dL (32-36); Mean Corpuscular Hgb 31.2 pg (27.0-32.0); Mean Corpuscular Volume 91.4 fL (81-99); Mean Platelet Vol. 10.6 fl (6.2-12.0); Monocyte# 0.69 X10^3/uL; Monocyte% 7.5 % (0-10); NRBC Flagged by Analyzer 0 % (0-5); Neutrophil % 67.3 % (47-70); Platelet Count 260 K/mm3 (150-450); RBC Distribution Width CV 12.4 % (11.6-14.6); RBC Distribution Width SD 41.2 fl (35.1-43.9); Red Blood Count 4.43 M/mm3 (4.2-5.4); White Blood Count 9.2 K/mm3 (4.4-11.0)
[2023-01-08 16:24] LABS: ALB/GLOB Ratio 0.8 RATIO (0.9-2.4); AST(SGOT) 23 U/L (15-37); Alanine Aminotransfer ALT/SGPT 32 U/L (13-56); Albumin, Serum 3.6 g/dL (3.2-5.0); Alkaline Phosphatase 54 U/L (45-117); Anion Gap 4 (5-15); BUN 16 mg/dL (7-18); BUN/Creat Ratio 17.1 RATIO (10-20); Calcium,Total 8.9 mg/dL (8.5-10.1); Chloride 105 mmol/L (98-107); Creatinine, Serum 0.94 mg/dL (0.55-1.02); EST Glomerular Filtration Rate 71 mL/min (>60); Est Glom Filt Rate - Afr Amer 86 mL/min (>60); Ferritin 195 ng/mL (8-252); Globulin 4.4 g/dL (2.2-4.2); Glucose 119 mg/dL (74-106); Iron 67 ug/dL (50-170); Iron Binding Capacity,Total 269 ug/dL (250-450); Potassium 3.9 mmol/L (3.5-5.1); Prolactin 18.3 ng/mL; Sodium Level 136 mmol/L (136-145); Thyroid Stim Hormone (TSH) 3.46 uIU/mL (0.358-3.74)
== END | disposition home or self-care (01) ==
PROVIDERS: PCP Internal Medicine; Referring Provider Internal Medicine; Visit Provider Internal Medicine
DX: L65.9 Nonscarring hair loss, unspecified (principal); E11.9 Type 2 diabetes mellitus without complications; E03.9 Hypothyroidism, unspecified
CPT/HCPCS: 36415; 80053; 82607; 82728; 83540; 83550; 84146; 84443; 85025

== ENCOUNTER → 2023-01-09 | Outpatient (CLI) | payer BC, SELFPAY ==
--- NOTE | 2023-01-09 14:29 | BI_ITS ---
MAMMOGRAPHY - BILATERAL DIAGNOSTIC REASON FOR EXAM: Female, 37 years old. Right breast lump. PERTINENT HISTORY: Non-contributory. TECHNIQUE: Digital bilateral breast antony (3D mammographic acquisition) in the CC and MLO projections. 2-D mediolateral oblique (MLO) and craniocaudad (CC) views of both breasts were obtained. CAD: Full Field Digital Mammography with Computer Added Detection was performed. COMPARISON: None. Baseline examination. FINDINGS: Breast Composition: The breasts are extremely dense, which lowers the sensitivity of mammography. The palpable abnormality corresponds to a 1.8 cm x 1.5 cm nodule in the upper lateral aspect of the right breast. Microcalcifications are seen within it. Correlation with ultrasound and biopsy is recommended. No other significant abnormalities are identified. BI/DIAG MAMM W/CAD, BILAT IMPRESSION: The palpable abnormality corresponds to a 1.8 cm x 1.5 cm nodule in the upper lateral aspect of the right breast with microcalcifications. Correlation with ultrasound and biopsy recommended. ASSESSMENT CATEGORY: BIRADS Category 4: Suspicious - Biopsy Should Be Considered. A letter regarding these results will be sent to the patient by the facility within 30 days. Approximately 10% of breast cancers are not detected by mammography. A normal mammogram should not delay biopsy of a clinically suspicious abnormality. Electronically Signed: Rhys Chavez MD at 15:28 EDT ,
--- NOTE | 2023-01-09 14:29 | US_ITS ---
STUDY: ULTRASOUND BREAST - RIGHT REASON FOR EXAM: Female, 37 years old. Palpable lump in the right breast. TECHNIQUE: Axial and longitudinal images of the RIGHT breast were performed with a high resolution ultrasound transducer. # OF IMAGES: 21 COMPARISON: Comparison is made with prior mammogram done earlier in the day. FINDINGS: RIGHT Breast: The palpable abnormality corresponds to a lobulated hypoechoic heterogeneous nodule at the 10:00 position of the breast at 3 cm from the nipple. This measures 9 mm x 6 mm x 8 mm. Biopsy recommended. US/Breast Limited Unilateral IMPRESSION: Hypoechoic lobular suspicious nodule seen at the 10:00 position of the breast at 3 cm from the nipple. Biopsy recommended. ASSESSMENT CATEGORY: BIRADS Category 4: Suspicious - Biopsy Should Be Considered. A letter regarding these results will be sent to the patient by the facility within 30 days. Electronically Signed: Rhys Chavez MD at 12:54 EDT ,
== END | disposition home or self-care (01) ==
LOC: OPBI 14:24
PROVIDERS: PCP Internal Medicine; Referring Provider Internal Medicine; Visit Provider Internal Medicine
DX: N63.10 Unspecified lump in the right breast, unspecified quadrant (principal)
CPT/HCPCS: 76642; 77062; 77066; G0279

== ENCOUNTER → 2023-09-12 | Outpatient (CLI) | payer BC, SELFPAY ==
--- OUTSIDE RECORDS SUMMARY | 2023-09-12 10:29 | XMS RPT_ITS | CCD ---
Author Name Unknown Address [address] [place] [address] Organization [facility] Care Team Providers Care Speeder Operator Name Role Phone DarellIlda oneal Unavailable Izaiah Lopez Unavailable Arvin Burgess Unavailable Tammi Machado Unavailable Mookie El OD Unavailable [phone] [facility] Unavailable Jasen Rutherford Unavailable Cheyanne Maradiaga Unavailable Unavailable Unavailable Unavailable Kee CHEN, Oluongbe B Primary Care Provider Jose CHEN, , Daesung Unavailable BALDOMERO MANZANARES Attending Unavailable OLEGHE, EFEWONGBE B Primary Care Unavailable SCOTTY GARCIA Attending Unavailable SCOTTY GARCIA Referring Unavailable OLEGHE, EFEWONGBE B Primary Care Unavailable MARÍA CERON Referring Unavailable BEENA PINEDA Attending Unavailable OLEGHE, EFEWONGBE B Primary Care Unavailable OLEGHE, EFEWONGBE B Primary Care Unavailable JOSEFINA GARCIA Referring Unavailable OLEGHE, EFEWONGBE B Primary Care Unavailable OLEGHE, EFEWONGBE B Primary Care Unavailable JOSEFINA GARCIA Referring Unavailable OLEGHE, EFEWONGBE B Primary Care Unavailable JOSEFINA GARCIA Referring Unavailable OLEGHE, EFEWONGBE B Primary Care Unavailable JOSEFINA GARCIA Referring Unavailable OLEGHE, EFEWONGBE B Primary Care Unavailable JOSEFINA GARCIA Referring Unavailable OLEGHE, EFEWONGBE B Primary Care Unavailable JOSE, DAESUNG Referring Unavailable OLEGHE, EFEWONGBE B Primary Care Unavailable JOSE, DAESUNG Referring Unavailable JOSE, DAESUNG Referring Unavailable OLEGHE, EFEWONGBE B Primary Care Unavailable OLEGHE, EFEWONGBE B Primary Care Unavailable JOSE, DAESUNG Referring Unavailable OLEGHE, EFEWONGBE B Primary Care Unavailable JOSE, DAESUNG Referring Unavailable OLEGHE, EFEWONGBE B Primary Care Unavailable JOSE, DAESUNG Attending Unavailable OLEGHE, EFEWONGBE B Primary Care Unavailable JOSE, DAESUNG Referring Unavailable SHEEBA, NANCIE Referring Unavailable OLEGHE, EFEWONGBE B Primary Care Unavailable OLEGHE, EFEWONGBE B Primary Care Unavailable ADRIEL, NANCY A Referring Unavailable OLEGHE, EFEWONGBE B Primary Care Unavailable ADRIEL NANCY A Attending Unavailable MARÍA CERON Attending Unavailable OLEGHE, EFEWONGBE B Primary Care Unavailable ADRIEL, NANCY A Referring Unavailable OLEGHE, EFEWONGBE B Primary Care Unavailable ADRIEL, NANCY A Referring Unavailable MARÍA CERON Referring Unavailable BEENA PINEDA Attending Unavailable OLEGHE, EFEWONGBE B Primary Care Unavailable OLEGHE, EFEWONGBE B Primary Care Unavailable JOSE, DAESUNG Attending Unavailable OLEGHE, EFEWONGBE B Primary Care Unavailable JOSE, DAESUNG Attending Unavailable BEENA PINEDA Attending Unavailable OLEGHE, EFEWONGBE B Primary Care Unavailable JOSE, DAESUNG Referring Unavailable OLEGHE, EFEWONGBE B Primary Care Unavailable JOSE, DAESUNG Attending Unavailable JOSE, DAESUNG Referring Unavailable OLEGHE, EFEWONGBE B Primary Care Unavailable JOSE, DAESUNG Attending Unavailable JOSE, DAESUNG Referring Unavailable OLEGHE, EFEWONGBE B Primary Care Unavailable JOSE, DAESUNG Attending Unavailable JOSE, DAESUNG Referring Unavailable OLEGHE, EFEWONGBE B Primary Care Unavailable JOSE, DAESUNG Referring Unavailable OLEGHE, EFEWONGBE B Primary Care Unavailable OLEGHE, EFEWONGBE B Primary Care Unavailable JOSE, DAESUNG Attending Unavailable OLEGHE, EFEWONGBE B Primary Care Unavailable OLEGHE, EFEWONGBE B Primary Care Unavailable JOSE, DAESUNG Referring Unavailable MARÍA CERON Referring Unavailable LEMON, KASSIE Attending Unavailable OLEGHE, EFEWONGBE B Primary Care Unavailable OLEGHE, EFEWONGBE B Primary Care Unavailable LEMON, KASSIE Attending Unavailable GLENNA, BALDOMERO Referring Unavailable OLEGHE, EFEWONGBE B Primary Care Unavailable LEMON, KASSIE Attending Unavailable GLENNA, BALDOMERO Referring Unavailable MARÍA CERON Referring Unavailable LEMON, KASSIE Attending Unavailable OLEGHE, EFEWONGBE B Primary Care Unavailable OLEGHE, EFEWONGBE B Primary Care Unavailable BEENA PINEDA Referring Unavailable SKIP RICHARDSON Attending Unavailable OLEGHE, EFEWONGBE B Primary Care Unavailable ADRIEL NANCY A Referring Unavailable DIMITRIS THEODORE Referring Unavailable OLEGHE, EFEWONGBE B Primary Care Unavailable OLEGHE, EFEWONGBE B Primary Care Unavailable MARÍA CERON Attending Unavailable MONIKAJASEN Attending Unavailable OLEGHE, EFEWONGBE B Primary Care Unavailable JASEN FRANK P Attending Unavailable MONIKA JASEN P Referring Unavailable OLEGHE, EFEWONGBE B Primary Care Unavailable OLEGHE, EFEWONGBE B Primary Care Unavailable MONIKAJAMIREL P Referring Unavailable OLEGHE, EFEWONGBE B Primary Care Unavailable MONIKA JASEN P Referring Unavailable OLEGHE, EFEWONGBE B Primary Care Unavailable JOSE, DAESUNG Referring Unavailable OLEGHE, EFEWONGBE B Primary Care Unavailable JOSE, DAESUNG Referring Unavailable OLEGHE, EFEWONGBE B Primary Care Unavailable JOSE, DAESUNG Attending Unavailable OLEGHE, EFEWONGBE B Primary Care Unavailable DARIEL, NANCY A Referring Unavailable JOSE, DAESUNG Referring Unavailable OLEGHE, EFEWONGBE B Primary Care Unavailable JOSE, DAESUNG Referring Unavailable OLEGHE, EFEWONGBE B Primary Care Unavailable OLEGHE, EFEWONGBE B Primary Care Unavailable JOSE, DAESUNG Referring Unavailable GLENNA, BALDOMERO Attending Unavailable OLEGHE, EFEWONGBE B Primary Care Unavailable ADRIEL, NANCY A Referring Unavailable MARÍA CERON Referring Unavailable MARÍA CERON Attending Unavailable OLEGHE, EFEWONGBE B Primary Care Unavailable JOSE, DAESUNG Referring Unavailable OLEGHE, EFEWONGBE B Primary Care Unavailable JOSE, DAESUNG Referring Unavailable OLEGHE, EFEWONGBE B Primary Care Unavailable OLEGHE, EFEWONGBE B Primary Care Unavailable JOSE, DAESUNG Referring Unavailable OLEGHE, EFEWONGBE B Primary Care Unavailable OLEGHE, EFEWONGBE B Primary Care Unavailable JOSE, DAESUNG Referring Unavailable OLEGHE, EFEWONGBE B Primary Care Unavailable JASEN FRANK Attending Unavailable OLEGHE, EFEWONGBE B Primary Care Unavailable OLEGHE, EFEWONGBE B Primary Care Unavailable BRENTON GARCIAUNG Attending Unavailable SCOTTY GARCIA Attending Unavailable OLEGHE, EFEWONGBE B Primary Care Unavailable OLEGHE, EFEWONGBE B Primary Care Unavailable SCOTTY GARCIA Attending Unavailable SCOTTY GARCIA Referring Unavailable OLEGHE, EFEWONGBE B Primary Care Unavailable SCOTTY GARCIA Referring Unavailable OLEGHE, EFEWONGBE B Primary Care Unavailable SKIP RICHARDSON Attending Unavailable OLEGHE, EFEWONGBE B Primary Care Unavailable ADRIEL, NANCY A Referring Unavailable OLEGHE, EFEWONGBE B Primary Care Unavailable ADRIEL, NANCY A Referring Unavailable MARÍA CERON Referring Unavailable OLEGHE, EFEWONGBE B Primary Care Unavailable MARÍA CERON Attending Unavailable BALDOMERO MANZANARES Referring Unavailable OLEGHE, EFEWONGBE B Primary Care Unavailable ADRIEL, NANCY A Attending Unavailable OLEGHE, EFEWONGBE B Primary Care Unavailable OLEGHE, EFEWONGBE B Primary Care Unavailable MARÍA CERON Attending Unavailable GLENNA, BALDOMERO Referring Unavailable ADRIEL, NANCY A Admitting Unavailable ADRIEL, NANCY A Attending Unavailable OLEGHE, EFEWONGBE B Primary Care Unavailable OLEGHE, EFEWONGBE B Primary Care Unavailable OLEGHE, EFEWONGBE B Referring Unavailable MARÍA CERON Attending Unavailable MARÍA CERON Referring Unavailable OLEGHE, EFEWONGBE B Primary Care Unavailable MARÍA CERON Attending Unavailable Allergies Allergy Classification Reported Allergen(s) Allergy Type Date of Onset Reaction(s) Facility (3 sources) cefTRIAXone; Translations: [Rocephin *CEPHALOSPORINS* ] Drug Allergy [facility] Work Phone: Medications Current Medications Medication Drug Class(es) Dates Sig (Normalized) Sig (Original) iv contrast (will be provided with radiology test) (1 source) Start: 02-13-2023 End: 02-14-2023 iv contrast (will be provided with radiology test) Indications: Malignant neoplasm of female breast, unspecified estrogen receptor status, unspecified laterality, unspecified site of breast (HCC) MRI Breast MIKE Inject, intravenously, once for 1 dose. No IV access, insert saline lock prior to the beginning of sedation, infusion, injection of imaging exam. Discontinue saline lock post exam. If Pt has a central line or IVAD, may access for administration according to line specific nursing protocol. Once exam is complete flush line and de-access according to line specific nursing protocol in the MR contrast administration guidelines link 1 Each 0 02/13/2023 02/14/2023 Active Completed/Discontinued Medications Medication Drug Class(es) Dates Sig (Normalized) Sig (Original) acetaminophen 325 mg oral tablet (20 sources) Start: 04-22-2023 End: 08-19-2023 take 3 tablets by mouth every six hours as needed acetaminophen (TYLENOL) 325 mg tablet Take 3 tablets by mouth every 6 hours as needed for pain. 90 tablet 0 04/22/2023 08/19/2023 Discontinued Problems Active Problems Problem Classification Problem Date Documented Da te Episodic/Chronic Adjustment disorders (2 sources) Adjustment disorder with depressed mood; Translations: [Adjustment disorder with depressed mood] 08-01-2023 Chronic Anxiety disorders (1 source) Anxiety disorder due to a general medical condition; Translations: [Generalized anxiety disorder] 08-19-2023 Chronic Aortic; peripheral; and visceral artery aneurysms (20 sources) Aortic aneurysm; Translations: [Aortic aneurysm of unspecified site, without rupture] Onset: 12-11-2006 08-18-2020 Chronic Asthma (20 sources) Mild intermittent asthma; Translations: [Mild intermittent asthma, uncomplicated] Onset: 10-15-2020 10-15-2020 Chronic Cancer of breast (20 sources) Intraductal carcinoma in situ of right breast; Translations: [Intraductal carcinoma in situ of right breast] Onset: 02-19-2023 Chronic Cancer of breast (4 sources) History of malignant neoplasm of breast; Translations: [Personal history of malignant neoplasm of breast] Onset: 08-01-2023 06-13-2023 Episodic Cardiac and circulatory congenital anomalies (20 sources) Bicuspid aortic valve; Translations: [Other anomalies of aorta] 06-05-2018 Chronic Past or Other Problems Problem Classification Problem Date Documented Da te Episodic/Chronic Abdominal pain (9 sources) Acute abdominal pain; Translations: [Epigastric pain] Resolved: 02-01-2009 07-31-2015 Episodic Results Test Name Value Interpretation Reference Range Facil ity Vital Signs Date Time Vital Sign Value Performing Clinician Facility 08-19-2023 09:37-0500 Body temperature 97 [degF] Scotty Masci DO Work Phone: [facility] 08-19-2023 09:37-0500 Body weight 94.8 kg Scotty Masci DO Work Phone: [facility] 08-19-2023 09:37-0500 Diastolic blood pressure 84 mm[Hg] Scotty Masci DO Work Phone: [facility] 08-19-2023 09:37-0500 Heart rate 79 /min Scotty Masci DO Work Phone: [facility] 08-19-2023 09:37-0500 SaO2% (BldA) [Mass fraction] 100 % Scotty Masci DO Work Phone: [facility] 08-19-2023 09:37-0500 Systolic blood pressure 124 mm[Hg] Scotty Masci DO Work Phone: [facility] 08-08-2023 14:10-0500 Body temperature 99.3 [degF] Wolfgang De Los Santos CLAIMS COUNSEL.LOGISTICS 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 Work Phone: [facility] 08-08-2023 14:10-0500 Body weight 96.16 kg Wolfgang De Los Santos CLAIMS COUNSEL.LOGISTICS 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 Work Phone: [facility] 08-08-2023 14:10-0500 Diastolic blood pressure 76 mm[Hg] Wolfgang De Los Santos CLAIMS COUNSEL.LOGISTICS 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 Work Phone: [facility] 08-08-2023 14:10-0500 Heart rate 83 /min Wolfgang De Los Santos CLAIMS COUNSEL.LOGISTICS 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 Work Phone: [facility] 08-08-2023 14:10-0500 Respiratory rate 21 /min Wolfgang De Los Santos CLAIMS COUNSEL.LOGISTICS 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 Work Phone: [facility] 08-08-2023 14:10-0500 SaO2% (BldA) [Mass fraction] 98 % Wolfgang De Los Santos CLAIMS COUNSEL.LOGISTICS 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 Work Phone: [facility] 08-08-2023 14:10-0500 Systolic blood pressure 122 mm[Hg] Wolfgang De Los Santos CLAIMS COUNSEL.LOGISTICS 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 Work Phone: [facility] 07-30-2023 08:23-0500 Body temperature 98.2 [degF] Josefina Garcia MD, MD Work Phone: [facility] 07-30-2023 08:23-0500 Diastolic blood pressure 87 mm[Hg] Josefina Garcia MD, MD Work Phone: [facility] 07-30-2023 08:23-0500 Heart rate 83 /min Josefina Garcia MD, MD Work Phone: [facility] 07-30-2023 08:23-0500 SaO2% (BldA) [Mass fraction] 100 % Josefina Garcia MD, MD Work Phone: [facility] 07-30-2023 08:23-0500 Systolic blood pressure 130 mm[Hg] Josefina Garcia MD, MD Work Phone: [facility] 07-23-2023 09:00-0500 Body temperature 98.2 [degF] Josefina Garcia MD, MD Work Phone: [facility] 07-23-2023 09:00-0500 Diastolic blood pressure 84 mm[Hg] Josefina Garcia MD, MD Work Phone: [facility] 07-23-2023 09:00-0500 Heart rate 84 /min Josefina Garcia MD, MD Work Phone: [facility] 07-23-2023 09:00-0500 Respiratory rate 18 /min Josefina Garcia MD, MD Work Phone: [facility] 07-23-2023 09:00-0500 SaO2% (BldA) [Mass fraction] 100 % Josefina Garcia MD, MD Work Phone: [facility] 07-23-2023 09:00-0500 Systolic blood pressure 125 mm[Hg] Josefina Garcia MD, MD Work Phone: [facility] 07-02-2023 08:24-0400 Body temperature 98.01 [degF] Josefina Garcia MD, MD Work Phone: [facility] 07-02-2023 08:24-0400 Diastolic blood pressure 90 mm[Hg] Josefina Garcia MD, MD Work Phone: [facility] 07-02-2023 08:24-0400 Heart rate 79 /min Josefina Garcia MD, MD Work Phone: [facility] 07-02-2023 08:24-0400 SaO2% (BldA) [Mass fraction] 100 % Josefina Garcia MD, MD Work Phone: [facility] 07-02-2023 08:24-0400 Systolic blood pressure 122 mm[Hg] Josefina Garcia MD, MD Work Phone: [facility] 06-13-2023 11:11-0400 Body temperature 98.49 [degF] María Ceron MD Work Phone: [facility] 06-13-2023 11:11-0400 Body weight 95.71 kg María Ceron MD Work Phone: [facility] 06-13-2023 11:11-0400 Diastolic blood pressure 79 mm[Hg] María Ceron MD Work Phone: [facility] 06-13-2023 11:11-0400 Heart rate 72 /min María Ceron MD Work Phone: [facility] 06-13-2023 11:11-0400 SaO2% (BldA) [Mass fraction] 100 % María Ceron MD Work Phone: [facility] 06-13-2023 11:11-0400 Systolic blood pressure 140 mm[Hg] María Ceron MD Work Phone: [facility] 06-13-2023 08:33-0400 Body temperature 96.49 [degF] Josefina Garcia MD, MD Work Phone: [facility] 06-13-2023 08:33-0400 Body weight 95.71 kg Josefina Garcia MD, MD Work Phone: [facility] 06-13-2023 08:33-0400 Diastolic blood pressure 68 mm[Hg] Josefina Garcia MD, MD Work Phone: [facility] 06-13-2023 08:33-0400 Heart rate 82 /min Josefina Garcia MD, MD Work Phone: [facility] 06-13-2023 08:33-0400 Respiratory rate 15 /min Josefina Garcia MD, MD Work Phone: [facility] 06-13-2023 08:33-0400 Systolic blood pressure 134 mm[Hg] Josefina Garcia MD, MD Work Phone: [facility] 05-12-2023 13:56-0400 Body temperature 98.29 [degF] Scotty Masci DO Work Phone: [facility] 05-12-2023 13:56-0400 Body weight 96.39 kg Scotty Masci DO Work Phone: [facility] 05-12-2023 13:56-0400 Diastolic blood pressure 80 mm[Hg] Scotty Masci DO Work Phone: [facility] 05-12-2023 13:56-0400 Heart rate 84 /min Scotty Masci DO Work Phone: [facility] 05-12-2023 13:56-0400 SaO2% (BldA) [Mass fraction] 97 % Scotty Masci DO Work Phone: [facility] 05-12-2023 13:56-0400 Systolic blood pressure 129 mm[Hg] Scotty Masci DO Work Phone: [facility] 05-01-2023 15:17-0400 Body temperature 98.49 [degF] María Ceron MD Work Phone: [facility] 07-31-2023 15:43-0400 Body height 170.2 cm Pacc 1 Work Phone: [facility] 04-14-2023 15:43-0400 Body temperature 98.1 [degF] Pacc 1 Work Phone: [facility] 04-14-2023 15:43-0400 Body weight 100.7 kg Pacc 1 Work Phone: [facility] 04-14-2023 15:43-0400 Diastolic blood pressure 90 mm[Hg] Pacc 1 Work Phone: [facility] 04-14-2023 15:43-0400 Heart rate 78 /min Pacc 1 Work Phone: [facility] 04-14-2023 15:43-0400 SaO2% (BldA) [Mass fraction] 98 % Pacc 1 Work Phone: [facility] 04-14-2023 15:43-0400 Systolic blood pressure 142 mm[Hg] Pacc 1 Work Phone: [facility] 03-13-2023 12:29-0400 Body height 170.2 cm María Ceron MD Work Phone: [facility] 03-13-2023 12:29-0400 Body weight 98.88 kg María Ceron MD Work Phone: [facility] 03-13-2023 08:37-0400 Body height 170.2 cm Nancy Adriel DO Work Phone: [facility] 03-13-2023 08:37-0400 Body weight 98.88 kg Nancy Adriel DO Work Phone: [facility] 02-19-2023 14:18-0400 Body height 169.5 cm Scotty Masci DO Work Phone: [facility] 02-19-2023 14:18-0400 Body temperature 97.39 [degF] Scotty Masci DO Work Phone: [facility] 02-19-2023 14:18-0400 Body weight 105.69 kg Scotty Masci DO Work Phone: [facility] 02-19-2023 14:18-0400 Diastolic blood pressure 64 mm[Hg] Scotty Masci DO Work Phone: [facility] 02-19-2023 14:18-0400 Heart rate 62 /min Scotty Masci DO Work Phone: [facility] 02-19-2023 14:18-0400 Respiratory rate 12 /min Scotty Masci DO Work Phone: [facility] 02-19-2023 14:18-0400 SaO2% (BldA) [Mass fraction] 96 % Scotty Dennisei DO Work Phone: [facility] 02-19-2023 14:18-0400 Systolic blood pressure 122 mm[Hg] Scotty Dennisei DO Work Phone: [facility] 02-19-2023 13:30-0400 Body temperature 97.39 [degF] Josefina Garcia MD, MD Work Phone: [facility] 02-19-2023 13:30-0400 Body weight 105.69 kg Josefina Garcia MD, MD Work Phone: [facility] 02-19-2023 13:30-0400 Diastolic blood pressure 77 mm[Hg] Josefina Garcia MD, MD Work Phone: [facility] 02-19-2023 13:30-0400 Heart rate 56 /min Josefina Garcia MD, MD Work Phone: [facility] 02-19-2023 13:30-0400 Respiratory rate 20 /min Josefina Garcia MD, MD Work Phone: [facility] 02-19-2023 13:30-0400 SaO2% (BldA) [Mass fraction] 96 % Josefina Garcia MD, MD Work Phone: [facility] 02-19-2023 13:30-0400 Systolic blood pressure 172 mm[Hg] Josefina Garcia MD, MD Work Phone: [facility] 05-08-2023 13:50-0400 Body height 170.2 cm Jasen Frank MD Work Phone: [facility] 01-20-2023 13:50-0400 Body temperature 97 [degF] Jasen Frank MD Work Phone: [facility] 01-20-2023 13:50-0400 Body weight 99.79 kg Jasen Frank MD Work Phone: [facility] 01-20-2023 13:50-0400 Diastolic blood pressure 72 mm[Hg] Jasen Frank MD Work Phone: [facility] 01-20-2023 13:50-0400 Heart rate 72 /min Jasen Frank MD Work Phone: [facility] 01-20-2023 13:50-0400 SaO2% (BldA) [Mass fraction] 99 % Jasen Frank MD Work Phone: [facility] 01-20-2023 13:50-0400 Systolic blood pressure 130 mm[Hg] Jasen Frank MD Work Phone: [facility] 06-05-2018 13:20-0400 BMI (Body Mass Index) 33.56 kg/m2 Ilda Lozoya [facility] Work Phone: 06-05-2018 13:20-0400 Body Temperature 98.7 [degF] Ilda Lozoya [facility] Work Phone: Encounters Encounter Date Encounter Type Care Provider Facility Start: 09-05-2023 End: 09-05-2023 ambulatory [facility] Facility:[facility] Start: 08-22-2023 End: 08-22-2023 ambulatory [facility] Facility:[facility] Start: 08-22-2023 End: 08-22-2023 [facility] Skip Richardson PhD Psychology Procedures Date Procedure Procedure Detail Performing Clinician Start: 02-04-2023 Diagnostic mammography computer-aided detcj uni Jasen Frank MD Work Phone: Start: 10-13-2020 Antibody screen Start: 08-16-2020 Antibody screen Start: 07-13-2018 End: 07-13-2018 Endocrinology Visit Report Comments: See Note; NOTES: [facility] [address] [place] [address] OFFICE VISIT Date of Service: 07/09/18 MR#: [id number] Acct: [id number] Name: KIMBERLY REIS Rep #: [id number] : 1985 Provider: Tammi Machado NP Age/Sex: 32/F Location: [facility] Status: Signed HPI History of present illness [...] Nutritional Appearance: well nourished Orientation: oriented x3 [facility] Head: normal to inspection, atraumatic Ears: hearing [...] Reasons: Diabetes Mellitus Type 2 Chief Complaint: Helpdesk Manager Required: No Accompanied by: Self Allergies adhesive [...] greater, continue Source: Developed by Drs. Dominick Bydr, Jinny Clark, Tl Evans and colleagues, with an educational kathia from [employer]. Scoring: Total Score Depression Severity Action 1-4 Minimal depression No action needed 5-9 Mild depression Repeat PHQ-9 at follow up 10-14 Moderate depression Make tx plan,consider counseling, fup, prescription 07/13/18 0758 <Electronically signed by Tammi ACUÑA> Date Tammi ACUÑA Cosigner Signature: Date (if applicable) CC: Ilda Lozoya Start: 07-06-2018 End: 07-06-2018 Chiropractic Report Comments: See Note; NOTES: [facility] [address] [place] [address] OFFICE VISIT Date of Service: 07/01/18 MR#: [id number] Acct: [id number] Name: KIMBERLY REIS Rep #: [id number] : 1985 Provider: Gillian Maciel D.C. Age/Sex: 32/F Location: [facility] Status: Signed Intake Vital Signs07/01/18 Height 5 [...] presents with decreased L collar bone pain. Kimberly states that her pain is 98% [...] Additional Codes Procedures - Manipulation: 1-2 regions (61575) 07/06/18 1019 <Electronically signed by Gillian Maciel D.C.> Date Gillian Muñoz Signature: Date (if applicable) CC: Ilda Lozoya Start: 06-18-2018 End: 06-18-2018 Chiropractic Report Comments: See Note; NOTES: [facility] [address] [place] [address] OFFICE VISIT Date of Service: 06/18/18 MR#: [id number] Acct: [id number] Name: KIMBERLY REIS Rep #: [id number] : 1985 Provider: Gillian Maciel D.C. Age/Sex: 32/F Location: [facility] Status: Signed Intake Vital Signs06/18/18 Height 5 [...] Additional Codes Procedures - Manipulation: 1-2 regions (22330) 06/18/18 3407 <Electronically signed by Gillian Maciel D.C.> Date Gillian Maciel D.C. Cosigner Signature: Date (if applicable) CC: Ilda Lozoya Start: 06-15-2018 End: 06-15-2018 Chiropractic Report Comments: See Note; NOTES: [facility] [address] [place] [address] OFFICE VISIT Date of Service: 06/10/18 MR#: [id number] Acct: [id number] Name: KIMBERLY REIS Rep #: [id number] : 1985 Provider: Gillian Maciel D.C. Age/Sex: 32/F Location: [facility] Status: Signed Intake Vital Signs06/10/18 Height 5 [...] Additional Codes Procedures - Manipulation: 1-2 regions (37855) 06/15/18 1037 <Electronically signed by Gillian Maciel D.C.> Date Gillian Maciel D.C. Cosigner Signature: Date (if applicable) CC: Ilda Lozoya Start: 06-04-2018 End: 06-04-2018 Chiropractic Report Comments: See Note; NOTES: [facility] [address] [place] [address] OFFICE VISIT Date of Service: 06/04/18 MR#: [id number] Acct: [id number] Name: KIMBERLY REIS Rep #: [id number] : 1985 Provider: Gillian Maciel D.C. Age/Sex: 32/F Location: [facility] Status: Signed Intake Vital Signs06/04/18 Height 5 [...] mg PO DAILY 05/09/18 [History Confirmed 05/09/18] [facility] Social History Smoking Status: Never smoker HPI [...] Additional Codes Procedures - Manipulation: 3-4 regions (14814) 06/04/18 1029 <Electronically signed by Gillian Maciel D.C.> Date Gillian Maciel D.C. Cosigner Signature: Date (if applicable) CC: Ilda Lozoya Start: 06-02-2018 End: 06-02-2018 Chiropractic Report Comments: See Note; NOTES: [facility] [facility]rop[facility] [address] [place], [place] [address] OFFICE VISIT Date of Service: 06/01/18 MR#: [id number] Acct: [id number] Name: KIMBERLY REIS Rep #: [id number] : 1985 Provider: Gillian Maciel D.C. Age/Sex: 32/F Location: [facility] Status: Signed Intake Vital Signs06/01/18 Height 5 [...] lift with less pain. Today Kimberly rates her pain a 3/10 and describes [...] Additional Codes Procedures - Manipulation: 1-2 regions (56663) 06/02/18 0810 <Electronically signed by Gillian Maciel D.C.> Date Gillian Maciel D.C. Cosignedmond Signature: Date (if applicable) CC: Ilda Lozoya Start: 06-01-2018 End: 06-01-2018 Chiropractic Report Comments: See Note; NOTES: [email or web address] [address] [place] [address] OFFICE VISIT Date of Service: 05/26/18 MR#: [id number] Acct: [id number] Name: KIMBERLY REIS June Rep #: [id number] : 1985 Provider: Gillian Maciel D.C. Age/Sex: 32/F Location: [facility] Status: Signed Intake Vital Signs05/26/18 Height 5 [...] mg PO DAILY 05/09/18 [History Confirmed 05/09/18] [facility] Social History Smoking Status: Never smoker HPI Rib pain : Chief Complaint: L sided rib pain Visit Number: 1 Referral source: [facility] employee; Salvador in PT Details: KIMBERLY [...] a burning that comes and goes. Today Kimberly rates her pain a 4/10, and states [...] Additional Codes Procedures - Manipulation: 1-2 regions (61823) 06/01/18 0825 <Electronically signed by Gillian Maciel D.C.> Date Gillian Hobbs Signature: Date (if applicable) CC: Ilda Lozoya Start: 05-28-2018 End: 05-28-2018 Chiropractic Report Comments: See Note; NOTES: [facility] [address] [place] [address] OFFICE VISIT Date of Service: 05/28/18 MR#: [id number] Acct: [id number] Name: KIMBERLY REIS June Rep #: [id number] : 1985 Provider: Gillian Maciel D.C. Age/Sex: 32/F Location: [facility] Status: Signed Intake Vital Signs05/28/18 Height 5 [...] sided rib pain Visit Number: 2 Details: IKMBERLY REIS is a 32 year old F [...] Additional Codes Procedures - Manipulation: 1-2 regions (23477) 05/28/18 1413 <Electronically signed by Gillian Maceil D.C.> Date Gillian Maciel D.C. Cosigner Signature: Date (if applicable) CC: Ilda Lozoya Start: 05-20-2018 End: 05-20-2018 Inital Evaluation (1) - PT Comments: See Note; NOTES: [facility] Physical Therapy Health[address] [place], [place] [address] Fax REHABILITATION SERVICES INITIAL EVALUATION MR#: [id number] Acct: [id number] Name: KIMBERLY REIS Rep #: [id number] : 1985 32 From: Salvador Alexander PT, ATC Referring Dr.: Ilda Lozoya DO Status: REG RCR Insurance: [facility] SELF PAY INSURANCE Patient's Visit Information KIMBERLY REIS is a 32 year old F referred to Physical Therapy by Ilda Lozoya with a diagnosis of L pec strain. Date of Evaluation: 05/20/18 Physical Therapist: Salvador Alexander, [...] to be FAXED BACK to us at [phone] for Medicare purposes. Please let me know if there are questions or concerns regarding this plan of care. Physician Signature: ___Date: <Electronically signed by Salvador Alexander PT, ATC> 05/20/18 0920 CC: Ilda Lozoya [facility] Signed For Medicare only, by signing this I certify the plan of care. Physicians Signature Date Ilda Lozoya Start: 05-12-2018 End: 05-12-2018 12 lead ECG Comments: See Note; NOTES: [facility] Cardiovascular Services [address] [facility] [place] [address] 12 Lead EKG 05/09/182132 MR#: [id number] Acct: [id number] Name: KIMBERLY REIS Rep #: [id number] : 1985 32 From: Barry Enciso MD [...] ECG Confirmed by BARRY ENCISO MD ([id number]), digital editor HECTOR JAEGER ([id number]) on 05/12/2018 2:41:20 PM Referred By: MYLES Confirmed By:BARRY ENCISO MD 05/12/18 144 Date Barry Enciso MD CC: Ilda Lozoya DO; Suresh Allen Signed Ildatristan Lozoya Start: 05-09-2018 End: 05-09-2018 Emergency Department Summary Comments: See Note; NOTES: [facility] Medical Records Department [address] [place] [address] Emergency Department Summary 05/09/185 MR#: [id number] Acct: [id number] Name: KIMBERLY REIS Rep #: [id number] : 1985 32 From: Suresh Arevalo PCP: [...] Acute costochondritis This note was generated with BombBombation software. It may contain incorrect words, spelling, [...] your Primary Care Provider. Call [facility] ([phone]) or report to the closest Emergency Room. Call 911 if necessary. 05/09/182238 <Electronically signed by Suresh Arevalo> Date Suresh Arevalo Cosigner Signature (If Indicated): Date CC: Ilda Bruno Start: 05-09-2018 End: 05-09-2018 Chest 1 View (Portable) Comments: See Note; NOTES: [facility] Imaging Services [address] [place] [address] Chest 1 View (Portable) MR#: [id number] Acct: [id number] Name: KIMBERLY REIS Rep #: [id number] : 1985 F 32 From: Mahesh Ma MD PCP: Ilda Lozoya DO Status: REG ER Study: Chest 1 View (Portable) Date of Exam: 05/09/18 Exam# [id number] Ordering Dr: Suresh Allen DO STUDY: X-RAY [...] , CC: Ilda Lozoya DO; Suresh Allen Policyholder Information Clerk: Signed Ilda Lozoya Start: 07-06-2017 End: 07-06-2017 Discharge Instruction Comments: See Note; NOTES: [facility] Medical Records Department [address] [place] [address] Discharge Instruction 07/06/17 0124 MR#: [id number] Acct: [id number] Name: KIMBERLY REIS Rep #: [id number] : 1985 31 From: Wolfgang Mac MD PCP: Ilda Lozoya DO Status: REG REF ED Disposition - Plan for ED Patient: Disposition: Home or Assisted Living Chief Complaint: Occup Expose Instructions: ED Body Fluid Exp HC Worker Referrals: Ilda Lozoya DO [Primary Care Provider] - As Needed Corporate,Care [GROUP OF PHYSICIANS] - As soon as possible Additional Instructions: All through with blood exposure protocol. Follow-up with corporate care and hospital employee health. Return to work without any restrictions today. What to do if you have Problems For any increased pain, shortness of breath, bleeding, nausea or vomiting, chest pain, or any unexpected problems, contact your Primary Care Provider. Call [facility] ([phone]) or report to the closest Emergency Room. Call 911 if necessary. 07/06/17 0236 <Electronically signed by Wolfgang Mac MD> Date Wolfgang Mac MD Cosigner Signature (If Indicated): Date CC: Ilda Bruno Start: 07-06-2017 End: 07-06-2017 Emergency Department Summary Comments: See Note; NOTES: [facility] Medical Records Department [address] [place] [address] Emergency Department Summary 07/06/17 0122 MR#: [id number] Acct: [id number] Name: KIMBERLY REIS Rep #: [id number] : 1985 31 From: Wolfgang Mca MD PCP: Ilda Lozoya DO Status: REG REF - ER Visit Summary Date of Service: 07/06/17 Chief Complaint: Sprayed with blood in her eyes during delivery History of Present Illness: The patient is a 31 F 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 Down here for workers comp evaluation. Physical Examination: Well-appearing young female. Vital signs are stable afebrile. HEENT exam unremarkable. Pupils round reactive light. Neck nontender no lymphadenopathy. Lungs clear to auscultation bilaterally. Heart regular rhythm no murmur. Abdomen soft nontender. Extremities moves all 4. Neurovascularly intact. Test Results: Blood exposure protocol. Labs to be followed [facility] and [facility] employee health. Emergency Department Course and Treatment: [] Treatment Plan: Discharged with follow-up through employee health and corporate care Disposition: Discharge Impression: Blood exposure to her eyes Worker's comp History of diabetes ED Disposition - Plan for ED Patient: Chief Complaint: Occup Expose Referrals: Ilda Lozoya DO [Primary Care Provider] - What to do if you have Problems For any increased pain, shortness of breath, bleeding, nausea or vomiting, chest pain, or any unexpected problems, contact your Primary Care Provider. Call [facility] ([phone]) or report to the closest Emergency Room. Call 911 if necessary. 07/06/17 0236 <Electronically signed by Wolfgang Mac MD> Date Wolfgang Mac MD Cosigner Signature (If Indicated): Date CC: Ilda Bruno Start: 06-25-2017 End: 06-27-2017 Thyroid Comments: See Note; NOTES: [facility] Imaging Services [address] [place] [address] Thyroid MR#: [id number] Acct: [id number] Name: MATTKIMBERLY L Rep #: [id number] : 1985 F 31 From: Rhys Chavez MD PCP: Ilda Lozoya DO Status: REG CLI Study: Thyroid Date of Exam: 06/25/17 Exam# [id number] Ordering Dr: Ilda Lozoya DO STUDY: THYROID ULTRASOUND REASON FOR EXAM: Female, 31 years old. Thyroid goiter. TECHNIQUE: Ultrasound evaluation of the thyroid was performed with real-time and static petit-scale imaging. COMPARISON: Comparison is made with prior ultrasound of thyroid dated June 05, 2010. FINDINGS: RIGHT LOBE: The right lobe of the thyroid gland measures 4.1 cm x 1.4 cm x 1.8 cm. There is a homogeneous echotexture. There are no demonstrated solid, cystic or complex lesions. LEFT LOBE: The left lobe of the thyroid gland measures 4.0 cm x 1.4 cm x 1.9 cm. There is a homogeneous echotexture. There is a 1.3 cm x 1.0 cm x 1.4 cm echogenic solid nodule in the superior posterior portion of the left lobe. This also evidence of a slightly echogenic nodule in the lower pole measuring 3 mm x 3 mm x 3 mm. ISTHMUS: The isthmus measures 4.0 mm. The regional lymph nodes are normal. US/Thyroid IMPRESSION: Dominant echogenic nodule in the superior posterior aspect of the left lobe of the thyroid measuring 1.3 cm x 1 cm x 1.4 cm. A biopsy recommended. Electronically Signed: Rhys Chavez MD at 14:37 EDT Tel [phone], Service support , CC: Ilda Lozoya DO Policyholder Information Clerk: Signed Ilda Lozoya Work Phone: Start: 05-27-2016 End: 05-27-2016 12 lead ECG Comments: See Note; NOTES: [facility] Cardiovascular Services [address] [place] [address] 12 Lead EKG 05/21/162050 MR#: [id number] Acct: [id number] Name: KIMBERLY REIS Rep #: [id number] : 1985 30 From: Jasen Walker MD [...] : 438 ms Normal sinus rhythm Septal infarct , age undetermined Abnormal ECG Confirmed by JASEN WALKER ([id number]), digital editor HECTOR JAEGER ([id number]) on 05/27/2016 2:21:18 PM Referred By: SAMMY Confirmed By:JASEN WALKER 05/27/16 1421 Date Jasen Walker MD CC: Lori Keita MD Date Dictated: 05/21/162050 Date Transcribed: 05/21/162050 Policyholder Information Clerk: Signed Ilda Lozoya Start: 05-23-2016 End: 05-23-2016 Emergency Department Summary Comments: See Note; NOTES: [facility] Medical Records Department [address] [place] [address] Emergency Department Summary MR#: [id number] Acct: [id number] Name: KIMBERLY REIS Rep #: [id number] : 1985 30 From: Lottie Hou MD PCP: Lori Keita MD Status: DEP ER DATE OF SERVICE: 05/21/2016 CHIEF COMPLAINT: Irregular heartbeat. 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 She had a graft repair as well as a valve replacement at that time at the [facility]. This is a bovine valve. In 2012 [...] that last after she began having some palpitations. She did take Diflucan this past weekend. She states otherwise there have been no other changes to her medications. She also has a history of reflux disease, hypertension, asthma and hypothyroidism. PHYSICAL EXAMINATION: VITAL SIGNS: Blood pressure 192/121, temperature 98.3, heart rate 79, respiratory rate 16, pulse oximetry 97% on room air. GENERAL: The patient is sitting upright in bed. She is nervous and tearful. HEAD AND NECK: Unremarkable. HEART: Regular. She has III/ murmur noted. LUNGS: Clear. ABDOMEN: Soft, nontender. EXTREMITIES: She has no calf tenderness or edema. HOSPITAL COURSE: The patient was observed and blood pressure is now down to 148/83. CBC is unremarkable. Chemistry studies are significant for a glucose of 303. Troponin is negative. Her TSH is elevated at 8.11. She does admit that she was off her Synthroid as well. EKG is sinus at [address] change noted. On repeat evaluation, the patient is resting comfortably. She is actually having a few more PVCs now. When I first saw her, she had very few noted on the monitor. She states she normally takes her metoprolol at night. She will be given 5 mg IV now. She will follow up with her power grader operator at [facility]. DISPOSITION: Discharge. IMPRESSION: 1. Palpitations. 2. Premature ventricular contractions. Lottie Hou MD T: NTS JOB: [id number] 05/23/16 1521 <Electronically signed by Lottie Hou MD> Date Lottie Hou MD Cosigner Signature (If Indicated): Date CC: Lori Keita MD Date Dictated: 05/21/162230 Date Transcribed: 05/21/162230 Policyholder Information Clerk: Signed Ilda Lozoya Start: 05-21-2016 End: 05-21-2016 Discharge Instruction Comments: See Note; NOTES: [facility] Medical Records Department [address] [place] [address] Discharge Instruction 05/21/162225 MR#: [id number] Acct: [id number] Name: KIMBERLY REIS Rep #: [id number] : 1985 30 From: Lottie Hou MD PCP: Lori Keita MD Status: REG ER ED Disposition - Plan for ED Patient: Disposition: Home or Assisted Living Chief Complaint: Palpitations Instructions: ED Palpitations, Premature Ventricular Contractions Referrals: Arvin Burgess MD [CONSULTING PHYSICIAN] - As soon as possible What to do if you have Problems For any increased pain, shortness of breath, bleeding, nausea or vomiting, chest pain, or any unexpected problems, contact your doctor. Call [facility] ([phone]) or report to the closest Emergency Room. Call 911 if necessary. 05/21/16 2227 <Electronically signed by Lottie Hou MD> Date Lottie Hou MD Cosigner Signature (If Indicated): Date CC: Lori Reedertristan Loweryon Start: 05-21-2016 End: 05-21-2016 Chest 1 View (Portable) Comments: See Note; NOTES: [facility] Imaging Services [address] [place] [address] Vertrinidad 4d Chest 1 View (Portable) MR#: [id number] Acct: [id number] Name: KIMBERLY REIS Rep #: [id number] : 1985 F 30 From: Mitchell Jurado PCP: Lori Keita MD Status: REG ER Study: Chest 1 View (Portable) Date of Exam: 05/21/16 Exam# [id number] Ordering Dr: Lottie Hou MD STUDY: X-RAY [...] DO at 22:24 EDT , Service support [phone], CC: Lori Keita MD; Lottie Hou MD Policyholder Information Clerk: Signed Ilda Lozoya Start: 12-09-2014 End: 12-09-2014 Emergency Department Summary Comments: See Note; NOTES: [facility] Medical Records Department [address] [place] [address] Emergency Department Summary MR#: [id number] Acct: [id number] Name: KIMBERLY REIS Rep #: [id number] : 1985 29 From: Jasen Contreras DO PCP: Lori Keita MD Status: DEP ER DATE OF SERVICE: 12/08/2014 CHIEF COMPLAINT: Foot injury. HISTORY OF PRESENT ILLNESS: A 29-year-old female sustained a fall yesterday noting pain to the left foot and ankle region, particularly laterally. PHYSICAL EXAMINATION: VITAL SIGNS: Afebrile. Vital signs are stable. EXTREMITIES: She has some contusion and hematoma formation over the lateral aspect of the left foot and the left lateral malleolus. She is neurovascularly intact. EMERGENCY DEPARTMENT COURSE: Foot and ankle films were negative. She will be discharged home with Kentrell wrap and supportive care. [facility] therapy. CLINICAL IMPRESSION: Left foot sprain. Jasen Contreras DO T: NTS JOB: [id number] 12/09/14 0035 <Electronically signed by Jasen Contreras DO> Date Jasen Contreras DO CC: Lori Keita MD Date Dictated: 12/08/142251 Date Transcribed: 12/08/142251 Policyholder Information Clerk: Signed Ilda Lozoya Start: 12-08-2014 End: 12-08-2014 Discharge Instruction Comments: See Note; NOTES: [facility] Medical Records Department [address] [place] [address] Discharge Instruction 12/08/14 1811 MR#: [id number] Acct: [id number] Name: KIMBERLY REIS June Rep #: [id number] : 1985 29 From: Jasen Contreras DO PCP: Lori Keita MD Status: [facility] ER ED Disposition - Plan for ED Patient: Disposition: Home Chief Complaint: Lower Extremity Injury Instructions: ED Sprain, Foot Referrals: Lori Keita MD [Primary Care Provider] - As Needed What to do if you have Problems For any increased pain, shortness of breath, bleeding, nausea or vomiting, chest pain, or any unexpected problems, contact your doctor. Call [facility] ( [phone]) or report to the closest Emergency Room. Call 911 if necessary. 12/08/141811 <Electronically signed by Jasen Contreras DO> Date Jasen Contreras DO Cosigner Signature (If Indicated): Date CC: Lori Lozoya Start: 12-08-2014 End: 12-09-2014 Ankle min 3 Views Comments: See Note; NOTES: [facility] Imaging Services [address] [place] [address] Radiology Report MR#: [id number] Acct: [id number] Name: NATTY REISPERCY Watkins Rep #: [id number] : 1985 F 29 From: Rhys Chavez MD PCP: Lori Keita MD Status: [facility] ER Study: Ankle min 3 Views Date of Exam: 12/08/14 Exam# [id number] Ordering Dr: [place], Jasen DO STUDY: X-RAY - LEFT ANKLE REASON FOR EXAM: Female, 29 years old. Pain following a fall. TECHNIQUE: 3 view(s) of the ankle. COMPARISON: None. FINDINGS: Normal visualized distal tibia and fibula. Normal medial and lateral malleoli. Normal tibiotalar articulation and ankle mortise. Normal visualized talus and calcaneus. There is a 6.7 mm well-defined bony density adjacent to the plantar aspect of the cuboid bone. This may represent either an accessory ossicle or old fracture. Soft tissue swelling. IMPRESSION: Soft tissue swelling. Electronically Signed: Rhys Chavez MD at 8:51 EDT Tel [phone], Service support [phone], CC: Lori Keita MD; Jasen Contreras DO Policyholder Information Clerk: Signed Ilda Lozoya Start: 12-08-2014 End: 12-09-2014 Foot min 3 Views Comments: See Note; NOTES: [facility] Imaging Services [address] [place] [address] Radiology Report MR#: [id number] Acct: [id number] Name: KIMBERLY REIS Rep #: [id number] : 1985 F 29 From: Rhys Chavez MD PCP: Lori Keita MD Status: DEP ER Study: Foot min 3 Views Date of Exam: 12/08/14 Exam# [id number] Ordering Dr: Jasen Contreras DO STUDY: X-RAY - LEFT FOOT CLINICAL: Female, 29 years old. Lateral pain following a fall. TECHNIQUE: 3 view(s) of the foot. COMPARISON: None. FINDINGS: Normal talus, calcaneus, and tarsal bones. Normal visualized subtalar, talonavicular, calcaneocuboid, tarsal and tarsometatarsal articulations. Normal metatarsi. Normal metatarsophalangeal joint of the great toe. Normal tibial and fibular sesamoid bones. Normal interphalangeal joint of the great toe. Normal phalanges of the great toe. Normal second through fifth metatarsophalangeal joints. Normal interphalangeal joints and phalanges of the lesser toes. The soft tissue structures are unremarkable. IMPRESSION: Normal x-ray examination of the foot. Electronically Signed: Rhys Chavez MD at 8:43 EDT Tel [phone], Service support [phone], CC: Lori Keita MD; Jasen Contreras DO Policyholder Information Clerk: Signed Ilda Lozoya Cholecystectomy Cholecystectomy (Gall Bladder Removal) Ilda Lozoya End: 06-01-2010 Cholecystectomy Cholecystectomy (Gall Bladder Removal) Ilda Lozoya Plan of Treatment Date Care Activity Detail Author Start: 08-08-2024 BP Controlled (<130/80) BP Controlled (<130/80) [facility] Start: 07-15-2024 BP Controlled (<130/80) BP Controlled (<130/80) [facility] Start: 06-09-2024 BP Controlled (<130/80) BP Controlled (<130/80) [facility] Start: 02-20-2024 BP CONTROLLED (<130/80) BP CONTROLLED (<130/80) [facility] Start: 05-16-2023 Covid-19 Vaccine ( season) Covid-19 Vaccine ( season) [facility] Start: 05-16-2023 Influenza vaccination [facility] Start: 04-14-2023 End: 06-14-2023 CBC W Auto Differential panel - Blood CBC + DIFF Lab Routine Pre-operative examination Expected: 04/14/2023, Expires: 06/14/2023 [facility] Work Phone: Immunizations Immunization Date Immunization Notes Care Provider Fa cili 07-31-2021 influenza, seasonal, injectable, preservative free Josefina Garcia MD, MD Work Phone: [facility] Work Phone: 07-31-2021 influenza virus vaccine, unspecified formulation Beena Pineda CLAIMS 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 Work Phone: [facility] 06-21-2020 influenza, injectabl e, quadrivalent, preservative free Jasen Frank MD Work Phone: [facility] 07-06-2019 influenza, seasonal, injectable, preservative free Jasen Frank MD Work Phone: [facility] 07-15-2018 influenza, seasonal, injectable, preservative free Jasen Frank MD Work Phone: [facility] 07-02-2018 influenza virus vaccine, unspecified formulation Jasen Frank MD Work Phone: [facility] 07-09-2017 influenza, seasonal, injectable, preservative free Jasen Frank MD Work Phone: [facility] 06-13-2016 influenza, seasonal, injectable, preservative free Jasen Frank MD Work Phone: [facility] 06-15-2015 influenza, seasonal, injectable, preservative free Jasen Frank MD Work Phone: [facility] 06-23-2014 influenza, seasonal, injectable, preservative free Jasen Frank MD Work Phone: [facility] 09-23-2013 influenza, seasonal, injectable, preservative free Jasen Frank MD Work Phone: [facility] 07-19-2009 novel [id number], preservative-free, injectable Josefina Garcia MD, MD Work Phone: [facility] Work Phone: Payers Date Payer Category Payer Unknown [id number] 2022 Unknown 2022 Unknown [id number] Social History Date Type Detail Facility Start: 03-27-2023 End: 04-10-2023 Current Work/Study Status Never smoker [facility] Work Phone: Medical Equipment Procedure Code Equipment Code Equipment Origin al Text Equipment Identifier Dates OneTouch Ultra B lue In Vitro Strip 1 (one) Strip Strip tid for 30 days Quantity: 90 {Strip} Refills: 3 Ordered: 14-May-2018 Cheyanne Maradiaga LPN Start : 14-Jan-2018 Active Start: 01-14-2018 OneTouch UltraSo ft Lancets Miscellaneous 1 (one) Misc Misc tid for 30 days Quantity: 90 {QS} Refills: 1 Ordered: 14-May-2018 Cheyanne Maradiaga LPN Start : 14-Jan-2018 Active Start: 01-14-2018 [place] 5/16 31G X 8 MM Miscellaneous 1 (one) Misc Misc weekly for 90 days Quantity: 12 {QS} Refills: 3 Ordered: 14-May-2018 Darell DO, Ilda Murcia DO Start : 14-Jan-2018 Active Start: 01-14-2018 OneTouch Ultra B lue In Vitro Strip 1 (one) Strip Strip tid for 30 days Quantity: 90 {Strip} Refills: 3 Ordered: 14-May-2018 Cheyanne Maradiaga LPN Start : 14-Jan-2018 Active Start: 01-14-2018 OneTouch UltraSo ft Lancets Miscellaneous 1 (one) Misc Misc tid for 30 days Quantity: 90 {QS} Refills: 1 Ordered: 14-May-2018 Cheyanne Maradiaga LPN Start : 14-Jan-2018 Active Start: 01-14-2018 [place] 5/16 31G X 8 MM Miscellaneous 1 (one) Misc Misc weekly for 90 days Quantity: 12 {QS} Refills: 3 Ordered: 14-May-2018 Darell DO, Ilda Darell DOJuanitaIlda Start : 14-Jan-2018 Active Comments: Mail order. Start: 01-14-2018 Clinical Notes 06-19-2020 to 09-05-2023 Kassie Colindres, PT - 08/22/2023 1:04 PM Skip Mc, PhD - 08/22/2023 8:05 AM Manjula Birmingham - 08/19/2023 11:15 AM Scotty Keene DO - 08/19/2023 9:17 AM EST Note Date & Type Note Facility 09-05-2023 Note HNO ID: [id number] Author: María Ceron MD Service: ? Author Type: Physician Type: Progress Notes Filed: 09/05/2023 2:23 PM Note Text: Plastic Surgery note Established patient visit CC: follow up breast reconstruction HPI: Date of Surgery: 04/22/2023 Surgery: right breast reconstruction with tissue die forger Time post op: ~5 months 05/30/23, debridement of necrotic tissue on the right breast was performed with layered closure. Breast cancer Hx: history of right breast cancer Follows with Dr. Josefina Garcia (radiation/oncology) Doing well Breast reconstruction concerns- here to discuss next reconstruction steps Had an area right axilla that got burned bad from radiation Hx Radiation Therapy: Yes Adjuvant RT to right chest wall completed 08/01/2023 Hx Chemotherapy: No PAIN : No: 0 on a scale of 0 to 10 Implant information: TE at 600cc NS (fully expanded) Lymphedema concerns? No REVIEW OF SYSTEMS PAIN ASSESSMENT: Negative for pain, history of chronic pain, or current treatment for a chronic pain condition. GENERAL: No weight loss, malaise or fevers RESPIRATORY: Negative for cough, hemoptysis, wheezing, COPD, dyspnea or shortness of breath CARDIOVASCULAR: Negative for chest pain, leg swelling, hypertension, CHF or palpitations MUSCULOSKELETAL: Negative for joint pain or swelling, back pain or muscle pain Allergies: Adhesive Tape (Noy* Comment:tears skin Sulfa (Sulfonamide * Hives{ PAST MEDICAL HISTORY Diagnosis Date Aortic valve disorders Aortic valve disorders-stenosis Breast cancer (HCC) 01/2023 Diabetes mellitus (HCC) Diffuse cystic mastopathy Hypertension possibly d/t nuvaring Hypothyroid Irregular menstrual cycle Irregular periods Migraine without aura Peripheral vascular disease (HCC) PMH - PAST MEDICAL HISTORY OF glucose intolerance Unspecified asthma(493.90) as child PAST SURGICAL HISTORY Procedure Laterality Date BX OF BREAST; INCISIONAL Right 02/04/2023 DELIVERY ONLY 12/14/08 11/14/10 , low transverse DELIVERY ONLY 04/2013 COLONOSCOPY SCREENING 05/2020 HEART VALVE REPAIR HEART VALVE REPLACEMENT LAPS SURG CHOLECYSTECTOMY W/CHOLANGIOGRAPHY 02/24/2007 LIG/TRNSXJ FLP TUBE ABDL/VAG APPR UNI/BI 04/2013 Tubal ligation PAST SURGICAL HISTORY OF 1991 heart cath for suspected ASD PAST SURGICAL HISTORY OF wisdom teeth PAST SURGICAL HISTORY OF 11/18/2006 aortic valve re: assending aortic anneurysm stent placement PAST SURGICAL HISTORY OF needle breast BX PERIPHERAL VASCULAR INTERVENTION PRQ BALLOON VALVULOPLASTY AORTIC VALVE 1992 SHX AORTIC VALVE REPLACEMENT 06/2020 mechanical On-X TONSILLECTOMY HX Current Outpatient Medications on File Prior to Visit Medication Sig MEDICATION, NON-DATABASE Take 1 capsule by mouth once daily. Cynatine and biotin made by [employer] LORazepam (ATIVAN) 1 mg tablet Take 1 tablet by mouth every 8 hours as needed for up to 30 days. aspirin 81 mg chewable tablet Take 1 tablet by mouth once daily. OZEMPIC 1 mg/dose (4 mg/3 mL) pen 2 mg. amLODIPine (NORVASC) 10 mg tablet Take 10 mg by mouth once daily. BASAGLAR KWIKPEN U-100 INSULIN 100 unit/mL (3 mL) Inject 34 Units subcutaneously daily at bedtime. losartan (COZAAR) 25 mg tablet Take 100 mg by mouth once daily. warfarin (COUMADIN) 5 mg tablet Take 2 tablets by mouth daily as directed. (Patient taking differently: Take 11 mg by mouth once daily. 11mg Fri 12 Sat Sun) metoprolol succinate ER (TOPROL XL) 100 mg Take 100 mg by mouth once daily. montelukast (SINGULAIR) 10 mg tablet Take 10 mg by mouth daily at bedtime. omeprazole magnesium (PRILOSEC ORAL) Take 40 mg by mouth once daily. Levothyroxine 100 mcg cap Take 100 mcg by mouth once daily. amoxicillin (AMOXIL) 500 mg capsule 500 mg. Pre dental work No current facility-administered medications on file prior to visit. Social History Tobacco Use Smoking status: Never Smokeless tobacco: Never Vaping Use Vaping Use: Never used Substance Use Topics Alcohol use: No Drug use: Never BP 132/66 (BP Site: Left Arm, BP Position: Sitting, BP Cuff Size: Large Adult) Pulse 77 Temp 36.7 ?C (98 ?F) (Oral) Wt 95.3 kg (210 lb 1.6 oz) LMP 09/29/2020 SpO2 100% BMI 32.91 kg/m? PE Alert and oriented in NAD right breast scar well healed No erythema or drainage noted right breast soft, right implant intact Grade II on right Breast asymmetry following reconstruction right breast smaller and sits higher than left breast due to radiation on right No s/s of infection Minimal skin changes from radiation ASSESSMENT/PLAN: hx of right breast cancer, s/p right breat reconstruction with tissue die forger and radiation to right chest wall completed in Jul 2023. - Discussed slightly smaller implant on right, mastopexy of left breast with possible future augmentation to left Too soon post radiation to decide cole (more content not included)... 08-22-2023 Note [facility] 08-22-2023 History of Present illness Narrative Episode Visit Count: 4 Therapist That Will Accept/Oversee The Plan Of Care: Kassie Colindres Start of Care Date: 06/09/23 Onset Date: 04/22/23 Patient Identified by Name and Date of : Yes REHABILITATION AND SPORTS THERAPY PHYSICAL THERAPY PROGRESS REPORT PLAN OF CARE UPDATE: Assessment: Kimberly Reis demonstrates improvements in lifting, sleeping, reaching overhead, and use hand with arm at shoulder level. She has progressed toward goals. Patient continues to present with impairments in overall function, range of motion, strength, and soft tissue restrictions that interfere with reaching overhead . Current prognosis is Excellent due to: current objective clinical presentation, good overall health status, good support system/ coping skills . She will benefit from continued skilled therapy services to meet the updated goals for this plan of care as noted below. Goals for Episode of Care: created on 06/09/23 through 08/09/23 Goals updated on 08/22/2023. Patient able to verbalize skin care and lymphedema risk reductions (Met) Patient/family independent with home exercise program including skincare guidelines, scar massage, ROM exercises, and garment instructions (Met) Patient will increase active ROM of R shld to 160-180deg flex and abd to allow patient to achieve neutral postural alignment, for improved performance of ADLs. (Partially Met) Patient will decrease pain to: 0/10 with all activity (Met) Patient will have supple scar with no tenderness to palpation and demonstrate and understanding of scar management (Partially Met) Patient will demonstrate understanding of techniques used to address axillary webbing Patient will have increased function and be able to perform reaching overhead, and all daily and work activities with the involved UE (Partially Met) Planned Interventions, Frequency, and Duration: 1x every other week, 4 weeks Total Number of Visits Planned: 2 Patient to be seen for Therapeutic exercise (88729), Neuromuscular re-education (27181), Manual therapy (98697), Self-assisted management (07336), Patient/Family/Caregiver Education PLAN FOR NEXT VISIT: Continue with ROM, manual soft tissue techniques. Review HEP. SUBJECTIVE: Pt reports she has been so busy lately she has not done well with compliance with HEP. She denies any questions or difficulty with new exercises, just finding the time to do them. Pt notes she was able to carry full roasters last Friday as she prepared a meal for her rastafari. She denies any limitations with reaching at work or overhead. Locates tightness at R anterolateral thorax under her breast. Functional Limitations: reaching overhead Pain: Pain Pain Level: 0 Post Treatment Pain Post Treatment Pain Level: 0 PROMIS Scales Higher is Better 06/07/2023 Phys Func - Score 48 (within normal limits) Phys Func - Percentile 42% Self-Eff Symptom - Score 51 (Average) Self-Eff Symptom - Percentile 54% T-scores: mean of general population = 50. 5 points is clinically meaningfully difference Percentiles provide an indication of how the patient's score ranks in relation to the general population. Higher percentile rankings indicate better function/quality of life. 50th percentile is the average of the general population and indicates half of respondents had a worse score. OBJECTIVE MEASURES WITH LEVEL OF FUNCTION: UE PROM R Shoulder Flex: 155 Degrees R Shoulder ABduction: 180 Degrees R Shoulder External Rotation: 70 Degrees TREATMENT: Therapeutic Exercise: 1: scapular retractions 5 sec holds 2 x 10 2: serratus press (standing against the wall) 2 x 10 3: UBE seat 2ht, 5 floor x 5 min 4: Passive R shld stretches for ER, flex and abd with pt in supine 5: *instruction in goal post stretch for stretching and monitoring tightness Skilled Intervention: Patient was educated in proper exercise technique and purpose for exercises. Reviewed and educated patient on additions/changes for home exercise program as above (*). Skilled judgment was used in selection of appropriate interventions. Correct performance of therapeutic exercises was facilitated with verbal and visual cuing. Additional time necessary for objective measurements and reassessment due to plan of care update. Patient education as noted. Manual Therapy: 1: MFR cross-hand technique to R anterolateral lower thoracic area (below breast) with good releases appreciated throughout. Skilled Intervention: Manual skills to improve joint mobility, ROM, and decrease pain. Utilized anatomy knowledge of the therapist, and assessment of patient's response to intervention. Billing Therapeutic Exercise Treatment Minutes: 33 Manual TherapyTreatment Minutes: 12 Skilled Treatment Time Minutes (timed and untimed codes): 45 Total Session Time (minutes): 45 Session Start Time : 1302 Session Stop Time : 1347 Kassie Colindres PT documented in this encounter [facility] 08-22-2023 Note [facility] 08-22-2023 History of Present illness Narrative [facility] Progress Note August 22, 2023 Billing codes: T08 oney CPT Code: [id number] Virtual Psychotherapy 16-37 minutes Start/Stop Time: 7:30/8:04 Collateral Parties Present: None Date of First Session this Cycle: 08/01/23 Session #: 2 Virtual Visit Check: Visit performed via telehealth.Audio/visual connection was good. Confirmed the patient was in a private space with minimized distractions and no additional people were in the room. Informed consent to deliver services via telehealth was discussed. The patient is aware of the benefits of telehealth and is in agreement to participate. Originating site for client is [place]. Originating site for provider is [place]. Subjective: Pt is struggling with anxiety, depressed mood and insomnia. Reported use of lorazepam for sleep. Pt reports good effect. Reviewed behavioral sleep strategies, provided supportive counseling and assisted pt in exploring interpersonal limits and self-care strategies. Patient mood is: Anxious. Affect is: Mood congruent. Patient denies any suicidal or homicidal ideation, plan or intent at this time. PSYCHOLOGY SCREENING/TESTING: PHQ-9 All Questions 05/11/2023 Little interest or pleasure in doing things 0 Feeling down, depressed, or hopeless 0 (0-4) minimal depression, (5-9) mild depression, (10-14) moderate depression, (15-19) moderately severe depression, (20-27) severe depression No flowsheet data found.(0-4) minimal anxiety, (5-9) mild anxiety, (10-14) moderate anxiety, (15-21) severe anxiety Objective: Pt reports slightly improved sleep but a rough ten days due, in part, to son's anxiety issues. Pt is engaged in treatment at this time. Assessment: Adjustment Disorder with anxiety and depressed mood Current GAF: 60-51 Moderate symptoms or moderate difficulty in social, occupational or school functioning. Current Outpatient Medications Medication Sig LORazepam (ATIVAN) 1 mg tablet Take 1 tablet by mouth every 8 hours as needed for up to 30 days. aspirin 81 mg chewable tablet Take 1 tablet by mouth once daily. OZEMPIC 1 mg/dose (4 mg/3 mL) pen 2 mg. amLODIPine (NORVASC) 10 mg tablet Take 10 mg by mouth once daily. amoxicillin (AMOXIL) 500 mg capsule 500 mg. Pre dental work BASAGLAR KWIKPEN U-100 INSULIN 100 unit/mL (3 mL) Inject 34 Units subcutaneously daily at bedtime. losartan (COZAAR) 25 mg tablet Take 100 mg by mouth once daily. warfarin (COUMADIN) 5 mg tablet Take 2 tablets by mouth daily as directed. (Patient taking differently: Take 11 mg by mouth once daily. 11mg Fri 12 Sat Sun) metoprolol succinate ER (TOPROL XL) 100 mg Take 100 mg by mouth once daily. montelukast (SINGULAIR) 10 mg tablet Take 10 mg by mouth daily at bedtime. omeprazole magnesium (PRILOSEC ORAL) Take 40 mg by mouth once daily. Levothyroxine 100 mcg cap Take 100 mcg by mouth once daily. No current facility-administered medications for this visit. Medication Changes: No change in medications Plan/Recommendations: Continue current treatment Number of weeks till next appointment: 2. Skip Richardson Ph.D. Psychologist documented in this encounter [facility] 08-19-2023 Note [facility] 08-19-2023 Miscellaneous Notes Pt scheduled as directed PSS please put on vascular schedule @ 11:45 today. I spoke with Ivan. Pt. Is aware. Kath Brown LPN Spoke with pt. Informed of Dr. Garcia advises bilateral duplex ultrasound of the legs in order to rule out below-knee DVTs. Please schedule JANAY. Here Or [facility] needs today Pt. Voiced understanding. Kath Brown LPN At today's OV she mention she has been having bilateral calf pain since being on her feet for nearly 22 hours at a rastafari function last week. I was not concerned about DVT because she is on Coumadin but I see that her most recent INR was subtherapeutic at 1.8. I advise bilateral duplex ultrasound of the legs in order to rule out below-knee DVTs. Please schedule JANAY. Scotty Garcia DO documented in this encounter [facility] 08-19-2023 History of Present illness Narrative HPI: The patient is a 37-year-old female with a past medical history significant for prosthetic aortic valve replacement, mechanical hemolysis, hypothyroidism, type 2 diabetes who was recently diagnosed with breast cancer. 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 She underwent valve replacement with a tissue valve, 23 mm try effective valve in May 2013. She also has DM2, GERD, HTN, asthma and hypothyroidism. Admitted to [facility] on 03/12/2020 after presenting to the ER with worsening dyspnea on exertion. On presentation she was found to have a hemoglobin of 8.0 g/dL. White count was 8000. Differential unremarkable. Platelet count 228,000. Patient was admitted to the PCU. And received a 2 unit red blood cell transfusion. She also was given a dose of iron sucrose, 200 mg. Stool was negative for occult blood. Following transfusion hemoglobin increased to 9 g/dL. She underwent a repeat echocardiogram that demonstrated an EF of 60% with moderate concentric left ventricular hypertrophy, stage II diastolic dysfunction and mean aortic valve gradient 67 mmHg consistent with severe aortic stenosis. This was thought secondary to the severe degree of anemia and a repeat echocardiogram in 4-6 weeks was planned. Coagulation times are normal. D-dimer was elevated at 0.61. Chemistry significant for normal bilirubin on admission at 0.7 mg/dL. LDH however was significantly elevated at 1132 unit(s)/L and haptoglobin was <10 mg/dL. Blood bank antibody screen was negative--direct Yoni test with polyspecific antiserum was negative. Ferritin was 12 nanograms per mL. TIBC was 365 mcg/dL. Iron saturation 7.4%. Vitamin B-12 404 pg per mL. Direct bilirubin normal. Patient underwent Mirena insertion on 03/28/2020. She had been having heavy menses for ~18 months. Passing clots. Occasional overflow from tampon. Recheck of CBC on 04/03 demonstrated white count 7500. Hemoglobin 10.6 g/dL with a platelet count of 292,000. Reticulocytes count was 5.68%. Haptoglobin was still less than 10. LDH not remeasured. Chemistry panel on that day demonstrated total bilirubin 0.70 mg/dL. AST was 67 with a normal ALT at 41. Was seen by power grader operator 04/07. Valve gradient down to 48 mmHg. She is on light duty at work. She is still short of breath with walking. Gets occasional anterior chest burning with walking and lying down especially on left side. Gets orthopnea with the pain as well. She doesn't notice pitting edema but power grader operator noticed trace pitting last OV. Was on Zantac chcf and started PPI 10/2019. She received parenteral iron. Had improvement in hemoglobin but had persistent evidence of ongoing hemolysis fairly well compensated. Repeatedly Yoni negative. Thorough work-up otherwise suggested no other etiology other than prosthetic valve dysfunction manifested as aortic valve stenosis and regurgitation. She underwent third redo sternotomy for aortic valve replacement using size 23, On-X mechanical valve on 06/19/2020. Bilateral diagnostic mammogram and US 01/09/2023: Breast Composition: The breasts are extremely dense, which lowers the sensitivity of mammography. The palpable abnormality corresponds to a 1.8 cm x 1.5 cm nodule in the upper lateral aspect of the right breast. Microcalcifications are seen within it. Correlation with ultrasound and biopsy is recommended. No other significant abnormalities are identified. RIGHT Breast: The palpable abnormality corresponds to a lobulated hypoechoic heterogeneous nodule at the 10:00 position of the breast at 3 cm from the nipple. This measures 9 mm x 6 mm x 8 mm. Biopsy recommended. Underwent right breast needle core biopsy on 02/04/2023. Pathology: A. 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 - Focus suspicious for stromal invasion. A multiplex immunostain for ADH5 was used in the evaluation of this material. The p63 and CK5/14 components highlight an intact myoepithelial cell layer while the luminal epithelium of interest has expression of only CK7/18, supporting the diagnosis of ductal carcinoma in situ. Rare scattered tumor cells are present in the stroma without myoepithelial lining, suspicious for stromal invasion. ER negative (<1%). She feels well in general and offers no complaints today. She remains on Coumadin for history of mechanical aortic valve. She underwent hysterectomy in October 2020 for menorrhagia. She bridged that procedure with Lovenox and after surgery was advised to stop Lovenox once her INR was at 1.8. 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 Underwent right-sided simple mastectomy along with sentinel lymph node injection and tissue die forger placement on 04/22/2023. Pathology: 1. Right breast, mastectomy (A) - Multifocal microinvasive carcinoma arising in the background of extensive ductal carcinoma in situ (DCIS), nuclear grade 3, solid type with comedonecrosis and microcalcifications, (please see comment). -DCIS extends into adjacent lobules. -Biopsy site changes and biopsy clip (x1) are identified. -The surrounding breast tissue shows fibroadenomatoid change. 2. Right axillary sentinel lymph node, excision (B) - Two lymph nodes, negative for metastatic carcinoma (0/2). 3. Left breast, 9:00, oriented excision (C) - Benign breast tissue with ectatic ducts/cysts, fibrotic wall and adjacent chronic inflammatory infiltrate, (please see comment). SPECIMEN Procedure Total mastectomy Specimen Laterality Right TUMOR Histologic Type Micro-invasive carcinoma Tumor Size Microinvasion only (less than or equal to 1 mm) Tumor Focality Multiple foci of invasive carcinoma Number of Foci At least: 17 Ductal Carcinoma In Situ (DCIS) Present Architectural Patterns Solid Nuclear Grade Grade III (high) Necrosis Present, central (expansive comedo necrosis) Lymphatic and / or Vascular Invasion Not identified Treatment Effect in the Breast No known presurgical therapy MARGINS Margin Status for Invasive Carcinoma All margins negative for invasive carcinoma Distance from Invasive Carcinoma to Closest Margin Greater than: 2 mm Margin Status for DCIS DCIS present at margin Margin(s) Involved by DCIS superior radial (focal, spanning < 1 mm) REGIONAL LYMPH NODES Regional Lymph Node Status All regional lymph nodes negative for tumor Total Number of Lymph Nodes Examined (sentinel and non-sentinel) 2 Number of Sodus Nodes Examined 2 pTNM CLASSIFICATION (AJCC 8th Edition) Reporting of pT, pN, and (when applicable) pM categories is based on information available to the pathologist at the time the report is issued. As per the AJCC (Chapter 1, 8th Ed.) it is the managing physician s responsibility to establish the final pathologic stage based upon all pertinent information, including but potentially not limited to this pathology report. pT Category pT1mi T Suffix (m) pN Category pN0 N Suffix (sn) SPECIAL STUDIES Testing Performed on Case Number Pending Comment(s) Tumor block: A4. Previous therapy: 1) Adjuvant RT to right chest wall completed 08/01/2023. Presents for ongoing oncologic management. Interim history: Palpitations presumably from PVCs several times a week. No chest pain/pressure. No NORMAN. No MS pain. 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 No swelling. She has been having significant anxiety over her medical conditions, particularly the chance of cancer recurrence. She has not been sleeping well at night. Her youngest son is also having anxiety and is not wanting to go to school and having somatization. PAST MEDICAL HISTORY Diagnosis Date Aortic valve disorders Aortic valve disorders-stenosis Breast cancer (HCC) 01/2023 Diabetes mellitus (HCC) Diffuse cystic mastopathy Hypertension possibly d/t nuvaring Hypothyroid Irregular menstrual cycle Irregular periods Migraine without aura Peripheral vascular disease (HCC) PMH - PAST MEDICAL HISTORY OF glucose intolerance Unspecified asthma(493.90) as child PAST SURGICAL HISTORY Procedure Laterality Date BX OF BREAST; INCISIONAL Right 02/04/2023 DELIVERY ONLY 12/14/08 11/14/10 , low transverse DELIVERY ONLY 04/2013 COLONOSCOPY SCREENING 05/2020 HEART VALVE REPAIR HEART VALVE REPLACEMENT LAPS SURG CHOLECYSTECTOMY W/CHOLANGIOGRAPHY 02/24/2007 LIG/TRNSXJ FLP TUBE ABDL/VAG APPR UNI/BI 04/2013 Tubal ligation PAST SURGICAL HISTORY OF 1991 heart cath for suspected ASD PAST SURGICAL HISTORY OF wisdom teeth PAST SURGICAL HISTORY OF 11/18/2006 aortic valve re: assending aortic anneurysm stent placement PAST SURGICAL HISTORY OF needle breast BX PERIPHERAL VASCULAR INTERVENTION PRQ BALLOON VALVULOPLASTY AORTIC VALVE 1992 SHX AORTIC VALVE REPLACEMENT 06/2020 mechanical On-X TONSILLECTOMY HX ALLERGIES Allergen Reactions Adhesive Tape (Noy* tears skin Sulfa (Sulfonamide * Hives Current Outpatient Medications Medication Sig fluconazole (DIFLUCAN) 150 mg tablet Take one tablet at first sign of yeast infection. May repeat in 72 hours if still symptomatic. cefADROxil (DURICEF) 500 mg capsule Take 1 capsule by mouth twice daily. To finish current course of antibiotic gabapentin (NEURONTIN) 100 mg capsule Take 1 capsule by mouth three times daily as needed for up to 30 days. traMADol (ULTRAM) 50 mg tablet Take 1 tablet by mouth every 4 hours as needed for pain. aspirin 81 mg chewable tablet Take 1 tablet by mouth once daily. acetaminophen (TYLENOL) 325 mg tablet Take 3 tablets by mouth every 6 hours as needed for pain. ondansetron (ZOFRAN) 4 mg tablet Take 1 tablet by mouth every 8 hours as needed for nausea/vomiting. econazole nitrate (ECONAZOLE TOPICAL) Apply to affected area. OZEMPIC 1 mg/dose (4 mg/3 mL) pen 2 mg. amLODIPine (NORVASC) 10 mg tablet Take 10 mg by mouth once daily. amoxicillin (AMOXIL) 500 mg capsule 500 mg. Pre dental work BASAGLSALVATORE HORTA U-100 INSULIN 100 unit/mL (3 mL) Inject 34 Units subcutaneously daily at bedtime. losartan (COZAAR) 25 mg tablet Take 100 mg by mouth once daily. warfarin (COUMADIN) 5 mg tablet Take 2 tablets by mouth daily as directed. (Patient taking differently: Take 11 mg by mouth once daily. 11mg Fri Sat Sun) metoprolol succinate ER (TOPROL XL) 100 mg Take 100 mg by mouth once daily. montelukast (SINGULAIR) 10 mg tablet Take 10 mg by mouth daily at bedtime. omeprazole magnesium (PRILOSEC ORAL) Take 40 mg by mouth once daily. Levothyroxine 100 mcg cap Take 100 mcg by mouth once daily. No current facility-administered medications for this visit. Family History Problem Relation Age of Onset Thyroid Mother Assending aortic anneurysm Hypertension Mother Aortic valve replacement Diabetes Mother Diabetes Father Hypertension Father Lipids Father Multiple Sclerosis Sister 30 Hypertension Brother Heart Maternal Grandmother a fib Emphysema Maternal Grandmother Dementia Maternal Grandmother Osteoporosis Maternal Grandfather Prostate Cancer Maternal Grandfather Arthritis Maternal Grandfather No Known Problems Paternal Grandmother Diabetes Paternal Grandfather Breast Cancer Maternal Aunt at age 47 Auto-Immune Disorder Maternal Aunt Lupus Cancer Paternal Uncle bile duct Maternal aunt above had IDC ER/WI negative, HER2 positive at age 46 in 2008. Alive and well now. ROS: Constitutional: No fever. No drenching night sweats. Normal appetite. No unexplained weight loss. No significant fatigue. Neuro: No recent STOUT, vertigo, dizziness or imbalance. No symptoms of sensory neuropathy. HEENT: No recent change in voice, vision or hearing. Resp: No cough, wheeze of hemoptysis. No shortness of breath at rest. CVS: No exertional chest pain, PND or orthopnea. No symptoms of claudication. No painful or tender varicose veins. GI: No dysphagia or odynophagia. No reflux, n/v, change in bowel habits. No abdominal pain, bloating or distension. No black or bloody stools. : No dysuria or gross hematuria. Endo: No hot flashes. No polyuria or polydipsia. No heat or cold intolerance. Musculoskeletal: No bone, back, joint and muscular pain. Derm: No current rash. No history of jaundice. No diffuse pruritis. Heme: No unusual bleeding and unexplained bruising. Psych: Normal mood. Hysterectomy for menorrhagia 10/2020. PHYSICAL EXAM: Vitals: Blood pressure 124/84, pulse 79, temperature 36.1 C (97 F), weight 94.8 kg (209 lb), last menstrual period 09/29/2020, SpO2 100%. Well-appearing and in no acute distress. EYES: Sclerae are anicteric bilaterally. LYMPHATIC: There is no palpable cervical, supraclavicular, axillary adenopathy. RESPIRATORY: Inspiratory breath sounds are of normal intensity in all martinez. No rales, wheezes or rhonchi. CARDIOVASCULAR: Rhythm is regular. There is a valve click along with a slight systolic murmur. BREAST: Marcie Yee RN chaperoned. Right breast die forger in place. No surrounding chest wall nodules or masses. Left breast no concerning mass or nodule. ABDOMEN: The abdomen is nondistended. No tenderness. Extremities: No swelling today. SKIN: No jaundice. 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 -pT1mi(m) pN0(sn) M0 ER/WI negative, HER2 positive pathologic stage IA -After consultation with radiation oncology for discussion of the potential benefit versus risk of radiation, she opted for radiation. Completed 07/2023. No complications. -Discussed TB recommendation for surveillance MRI. Will start 6 months following RT. Had left breast diagnostic mammogram and US 04/2023. -She is understandably having extreme anxiety over her health care issues. She has not been sleeping very well. We discussed both depressive symptoms and anxiety and by far and away she has significant anxiety. She does not seem to have any depressive symptoms at all and has no suicidal ideation whatsoever. I talked with her about the appropriateness of benzodiazepine therapy even if longer-term. Plan: -Rx lorazepam for as needed use. -OV with lab work in January. Will order MRI at that time. Portions of this documentation were copied and pasted from previous office visit notes in order to provide a cohesive continuity of the history. The note has been reviewed and edited and updated as necessary. I spent a total of 30 minutes on the date of the service which included preparing to see the patient, [id number] patient care, completing clinical documentation, obtaining and/or reviewing separately obtained history, performing a medically appropriate examination, counseling and educating the patient/family/caregiver, ordering medications, tests, or procedures, communicating with other HCPs (not separately reported), and communicating results to the patient/family/caregiver. Scotty Garcia DO documented in this encounter [facility] 08-11-2023 Miscellaneous Notes I spoke with pt and notified her of Dr Garcia's recommendation to continue with Aquaphor at this time. Pt verbalizes understanding and will monitor for signs and symptoms of infection and contact this office with further questions or concerns. documented in this encounter [facility] 08-08-2023 Note [facility] 08-08-2023 History of Present illness Narrative Images from the original note were not included. Subjective HPI Nontoxic-appearing female presents urgent care chief complaint sore throat white patches on tongue. Duration of symptoms 4 days. Associated symptoms cough sore throat nasal congestion. Did take a negative strep test at work. Presents today for evaluation. No known sick contacts. Denies any difficulty swallowing hand discoloration decreased range of motion of neck. History of adenoid and tonsil removal. Recently finished radiation for breast cancer. Is a diabetic. Denies chance is not breast-feeding. Denies any fever body aches chills productive cough chest pain shortness of breath pleuritic pain hemoptysis nausea vomiting abdominal pain. Past medical history prescription medications allergies reviewed. .Patient presents with: Mouth Sores: Sore throat, possible thrush x 4 days PAST MEDICAL HISTORY Diagnosis Date Aortic valve disorders Aortic valve disorders-stenosis Breast cancer (HCC) 01/2023 Diabetes mellitus (HCC) Diffuse cystic mastopathy Hypertension possibly d/t nuvaring Hypothyroid Irregular menstrual cycle Irregular periods Migraine without aura Peripheral vascular disease (HCC) PMH - PAST MEDICAL HISTORY OF glucose intolerance Unspecified asthma(493.90) as child PAST SURGICAL HISTORY Procedure Laterality Date BX OF BREAST; INCISIONAL Right 02/04/2023 DELIVERY ONLY 12/14/08 11/14/10 , low transverse DELIVERY ONLY 04/2013 COLONOSCOPY SCREENING 05/2020 HEART VALVE REPAIR HEART VALVE REPLACEMENT LAPS SURG CHOLECYSTECTOMY W/CHOLANGIOGRAPHY 02/24/2007 LIG/TRNSXJ FLP TUBE ABDL/VAG APPR UNI/BI 04/2013 Tubal ligation PAST SURGICAL HISTORY OF 1991 heart cath for suspected ASD PAST SURGICAL HISTORY OF wisdom teeth PAST SURGICAL HISTORY OF 11/18/2006 aortic valve re: assending aortic anneurysm stent placement PAST SURGICAL HISTORY OF needle breast BX PERIPHERAL VASCULAR INTERVENTION PRQ BALLOON VALVULOPLASTY AORTIC VALVE 1992 SHX AORTIC VALVE REPLACEMENT 06/2020 mechanical On-X TONSILLECTOMY HX ALLERGIES Adhesive Tape (Rosins) and Sulfa (Sulfonamide Antibiotics) MEDICATIONS aspirin 81 mg chewable tablet Take 1 tablet by mouth once daily. OZEMPIC 1 mg/dose (4 mg/3 mL) pen 2 mg. amLODIPine (NORVASC) 10 mg tablet Take 10 mg by mouth once daily. amoxicillin (AMOXIL) 500 mg capsule 500 mg. Pre dental work BASAGLAR KWIKPEN U-100 INSULIN 100 unit/mL (3 mL) Inject 34 Units subcutaneously daily at bedtime. losartan (COZAAR) 25 mg tablet Take 100 mg by mouth once daily. warfarin (COUMADIN) 5 mg tablet Take 2 tablets by mouth daily as directed. (Patient taking differently: Take 11 mg by mouth once daily. 11mg Fri 12 Sat Sun) metoprolol succinate ER (TOPROL XL) 100 mg Take 100 mg by mouth once daily. montelukast (SINGULAIR) 10 mg tablet Take 10 mg by mouth daily at bedtime. omeprazole magnesium (PRILOSEC ORAL) Take 40 mg by mouth once daily. Levothyroxine 100 mcg cap Take 100 mcg by mouth once daily. fluconazole (DIFLUCAN) 150 mg tablet Take one tablet at first sign of yeast infection. May repeat in 72 hours if still symptomatic. cefADROxil (DURICEF) 500 mg capsule Take 1 capsule by mouth twice daily. To finish current course of antibiotic gabapentin (NEURONTIN) 100 mg capsule Take 1 capsule by mouth three times daily as needed for up to 30 days. traMADol (ULTRAM) 50 mg tablet Take 1 tablet by mouth every 4 hours as needed for pain. acetaminophen (TYLENOL) 325 mg tablet Take 3 tablets by mouth every 6 hours as needed for pain. ondansetron (ZOFRAN) 4 mg tablet Take 1 tablet by mouth every 8 hours as needed for nausea/vomiting. econazole nitrate (ECONAZOLE TOPICAL) Apply to affected area. FAMILY HISTORY Problem Relation Age of Onset Thyroid Mother Assending aortic anneurysm Hypertension Mother Aortic valve replacement Diabetes Mother Diabetes Father Hypertension Father Lipids Father Multiple Sclerosis Sister 30 Hypertension Brother Heart Maternal Grandmother a fib Emphysema Maternal Grandmother Dementia Maternal Grandmother Osteoporosis Maternal Grandfather Prostate Cancer Maternal Grandfather Arthritis Maternal Grandfather No Known Problems Paternal Grandmother Diabetes Paternal Grandfather Breast Cancer Maternal Aunt at age 47 Auto-Immune Disorder Maternal Aunt Lupus Cancer Paternal Uncle bile duct Social History Tobacco Use Smoking status: Never Smokeless tobacco: Never Vaping Use Vaping Use: Never used Substance Use Topics Alcohol use: No Drug use: Never BP 122/76 Pulse 83 Temp 37.4 C (99.3 F) Resp 21 Wt 96.2 kg (212 lb) LMP 09/29/2020 SpO2 98% BMI 33.20 kg/m Review of Systems Constitutional: Negative for chills, fever and malaise/fatigue. HENT: Positive for congestion and sore throat. Negative for ear discharge, ear pain and sinus pain. Eyes: Negative for blurred vision, pain, discharge and redness. Respiratory: Positive for cough. Negative for hemoptysis, sputum production, shortness of breath, wheezing and stridor. Cardiovascular: Negative for chest pain. Gastrointestinal: Negative for abdominal pain, diarrhea, nausea and vomiting. Musculoskeletal: Negative for myalgias. Skin: Negative for itching and rash. Neurological: Negative for dizziness and headaches. Objective Physical Exam Constitutional: General: She is not in acute distress. Appearance: She is not diaphoretic. HENT: Head: Normocephalic. Jaw: No trismus, tenderness, swelling or pain on movement. Nose: Congestion present. Mouth/Throat: Mouth: Mucous membranes are moist. Pharynx: Oropharynx is clear. Uvula midline. No pharyngeal swelling, oropharyngeal exudate, posterior oropharyngeal erythema or uvula swelling. Comments: White/yellow semiadhesive plaques noted on tongue and side of mouth. Eyes: Conjunctiva/sclera: Conjunctivae normal. Pupils: Pupils are equal, round, and reactive to light. Cardiovascular: Rate and Rhythm: Normal rate and regular rhythm. Heart sounds: Normal heart sounds. Pulmonary: Effort: Pulmonary effort is normal. No tachypnea, accessory muscle usage or respiratory distress. Breath sounds: Normal breath sounds. No stridor. No wheezing, rhonchi or rales. Abdominal: General: There is no distension. Palpations: Abdomen is soft. Tenderness: There is no abdominal tenderness. There is no guarding or rebound. Musculoskeletal: Cervical back: Normal range of motion and neck supple. No edema, erythema, rigidity or tenderness. No pain with movement. Normal range of motion. Lymphadenopathy: Cervical: No cervical adenopathy. Skin: General: Skin is warm and dry. Neurological: Mental Status: She is alert and oriented to person, place, and time. ASSESSMENT/PLAN: 1. Thrush - ICD9: 112.0, ICD10: B37.0 Diagnosed with thrush. Nystatin swish and swallow prescribed. COVID-19 test offered states will do a home test. Recommend antiviral if positive. Patient was educated on supportive therapies. Patient will follow up with primary care provider as needed. Patient was instructed to immediately proceed to emergency room for any new, worsening, or symptoms lasting longer than anticipated. The patient's clinical presentation is otherwise unremarkable at this time. Based on exam and clinical finding, the patient is stable for discharge. Plan of care was discussed with patient. Patient verbalizes understanding and agrees to plan of care. This note was generated using [employer] software. It may contain errors in wording, punctuation, or spelling. Wolfgang De Los Santos APRN.GARRISON documented in this encounter [facility] 08-05-2023 Miscellaneous Notes Advised pt that sore throat is most likely not from radiation and even if it were we would treat the same- salt water gargle no mouthwash with alcohol. To let us no if does not resolve in 10-14 days.She states understanding and is in agreement. Patient states she has had a sore throat since yesterday and some sinus drainage. Strep is negative. She is asking if this may be from radiation. Please advise. documented in this encounter [facility] 08-01-2023 Note [facility] 08-01-2023 Note [facility] 08-01-2023 Instructions Skip Richardson, PhD - 08/01/2023 10:18 AM EST Tips for Good Sleep Hygiene Things to avoid: Avoid naps Avoid stimulants (caffeine, food) 4 hrs before bed Avoid computer and phone in bed Avoid alcohol and smoking Things to do: Use the bedroom only for sleep and sex, no TV Wake the same time each morning or use a light box for 30 minutes Get out of bed and do something else if you can t sleep after 20 minutes Exercise regularly, but preferably 3-4 hrs before bed Relax before bed (use white noise machine, earplugs, soothing music) Establish a routine for bedtime (e.g. showering, reading, listening to music, meditating) Be consistent with your bedtime routine Write down worries and set aside until the next day Turn your clock around and only use your alarm Create a positive sleep environment: cool, dark, quiet Mindful Moments by [facility] in the [employer] (practice nightly Mindful Breathe Night) documented in this encounter [facility] 08-01-2023 History of Present illness Narrative [facility]AL[facility] DATE OF SERVICE: 08/01/2023 TIME OF SERVICE: 9:30/10:20 SUMMARY (for full evaluation see below): IMPRESSIONS: 1)The patient has depressed mood and adjustment difficulties in adjustment to/exacerbated by breast cancer 2) Patient strengths include intact support system and spirituality. 3) Symptom management issues include depressed mood and insomnia. 4) Stressors and complicating factors include financial issues. TREATMENT PLAN AND RECOMMENDATIONS: 1) Individual psychotherapy for adjustment and depressive symptoms. 2) Continue to use strengths such as intact supports and spirituality. 3) Treatment targets include depressed mood, insomnia. 5) Practice sleep hygiene and guided meditation with resources provided in today's session. CPT CODE: 71825 Psychiatric diagnostic evaluation BILLING CODE: [facility] PSYL MAIN TO8/Oney DATE OF FIRST SERVICE THIS CYCLE:08/01/2023 SESSION #: 1 The patient signed the Informed Consent for Psychological Evaluation & Care Form, and the behavioral health care insurance benefits, fees for service, emergency procedures, and the limits of confidentiality that may pertain with any given case were discussed with the patient. Ms. Kimberly Reis was given a copy of the consent form. The patient was determined to be appropriate for telehealth treatment, including having a designated private space for appointments, appropriate technology and connectivity, and an emergency plan for safety management. The patient may choose to continue care through telehealth for future visits. IDENTIFYING INFORMATION: Ms. Kimberly Reis is a 37 year old female. She was referred by Beena Pineda APRN from the [facility]. Ms. Reis was referred for psychological services. COLLATERAL PARTIES PRESENT: none. MEDICAL BREAST HISTORY: From Dr. 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 It's ER negative (<1%), WI negative (<1%) and Her2 3+. INTERVAL HISTORY: Since I saw her in February for high grade DCIS with suspicious microinvasion, she underwent right mastectomy and die forger placement and sentinel node biopsy on 04/22/23. Pathology showed microinvasive grade 3 DCIS. There were total 17 foci of invasion. Surgical margins were negative with invasive carcinoma but positive with DCIS focally at the superior radial margin. Two sentinel nodes were negative for metastasis. End copied note Pt reported completion of RT and difficulty adjusting to idea of survivorship. MOTIVATION/UNDERSTANDING/EXPECATIO NS: Pt has no prior history of psychological counseling services. We discussed the nature and scope of this counseling work and pt was able to articulate informed and realistic expectations of this counseling episode. MEDICAL PROBLEMS: ACTIVE PROBLEM LIST Aortic Valve Disorder Aortic Aneurysm (Hcc) Obesity Calculus of Gallbladder Without Mention of Cholecystitis Or Obstruction Other Abnormal Blood Chemistry Impaired Fasting Glucose Esophageal Reflux Nonspecific Abnormal Results of Liver Function Study Rosacea Pain, Acute Postoperative Summary discharge History of Gestational Diabetes Hypothyroid Discharge Planning Issues Obesity, Class I, Bmi 30-34.9 Mechanical Complication Due to Heart Valve Prosthesis Essential Hypertension Encounter for Support and Coordination of Transition of Care Elevated Ldh Prosthetic Aortic Valve Stenosis Diabetes Mellitus Type 2, Controlled, Without Complications (Hcc) Fluid Overload History of Aortic Valve Replacement Mild Intermittent Asthma Without Complication Hypothyroidism On Anticoagulant Therapy Abnormal Uterine Bleeding (Aub) Menorrhagia With Regular Cycle Malignant Neoplasm of Upper-Outer Quadrant of Left Breast in Female, Estrogen Receptor Negative (Hcc) Enlarged Lymph Nodes in Armpit At Risk for Lymphedema Renal Infarct (Hcc) Post-Operative State Breast Neoplasm, Tis (Dcis), Right MEDICATIONS: Current Outpatient Medications Medication Sig fluconazole (DIFLUCAN) 150 mg tablet Take one tablet at first sign of yeast infection. May repeat in 72 hours if still symptomatic. cefADROxil (DURICEF) 500 mg capsule Take 1 capsule by mouth twice daily. To finish current course of antibiotic gabapentin (NEURONTIN) 100 mg capsule Take 1 capsule by mouth three times daily as needed for up to 30 days. traMADol (ULTRAM) 50 mg tablet Take 1 tablet by mouth every 4 hours as needed for pain. aspirin 81 mg chewable tablet Take 1 tablet by mouth once daily. acetaminophen (TYLENOL) 325 mg tablet Take 3 tablets by mouth every 6 hours as needed for pain. ondansetron (ZOFRAN) 4 mg tablet Take 1 tablet by mouth every 8 hours as needed for nausea/vomiting. econazole nitrate (ECONAZOLE TOPICAL) Apply to affected area. OZEMPIC 1 mg/dose (4 mg/3 mL) pen 2 mg. amLODIPine (NORVASC) 10 mg tablet Take 10 mg by mouth once daily. amoxicillin (AMOXIL) 500 mg capsule 500 mg. Pre dental work BASAGLAR KWIKPEN U-100 INSULIN 100 unit/mL (3 mL) Inject 34 Units subcutaneously daily at bedtime. losartan (COZAAR) 25 mg tablet Take 100 mg by mouth once daily. warfarin (COUMADIN) 5 mg tablet Take 2 tablets by mouth daily as directed. (Patient taking differently: Take 11 mg by mouth once daily. 11mg Fri 12 Tu Sat Sun) metoprolol succinate ER (TOPROL XL) 100 mg Take 100 mg by mouth once daily. montelukast (SINGULAIR) 10 mg tablet Take 10 mg by mouth daily at bedtime. omeprazole magnesium (PRILOSEC ORAL) Take 40 mg by mouth once daily. Levothyroxine 100 mcg cap Take 100 mcg by mouth once daily. No current facility-administered medications for this visit. ALLERGIES: ALLERGIES Allergen Reactions Adhesive Tape (Noy* tears skin Sulfa (Sulfonamide * Hives MENTAL HEALTH HISTORY: She has never been treated as an outpatient for a mental health issue Ms. Reis has never been an inpatient for a psychiatric reason. The patient has no previous suicide attempts. The patient has no history of self-injurious behavior. The patient notes the following family history: possible bipolar d/o. The patient denies a history of physical, sexual, or emotional abuse. The following psychiatric symptoms are noted: Depression: Depressed / sad mood Sleep disturbance Crying spells Citlaly: Denies any history of hypomanic or manic episodes. Psychosis: Denies any hallucinations or delusions. Generalized Anxiety Disorder: Denies any symptoms of MARGY Panic: Denies any symptoms of panic. Obsessive Compulsive Disorder: Denies any symptoms of OCD. Post-Traumatic Stress Disorder: Denies any PTSD symptoms PSYCHOLOGY SCREENING/TESTING: PHQ-9 All Questions 05/11/2023 Little interest or pleasure in doing things 0 Feeling down, depressed, or hopeless 0 (0-4) minimal depression, (5-9) mild depression, (10-14) moderate depression, (15-19) moderately severe depression, (20-27) severe depression No flowsheet data found.(0-4) minimal anxiety, (5-9) mild anxiety, (10-14) moderate anxiety, (15-21) severe anxiety SUBSTANCE USE: Alcohol Use Disorder Identification Test-C: How often do you drink Alcohol? 0 (Never); How many drinks containing alcohol do you have on a typical day when you are drinking? 0 ( = 1 or 2 ); How often do you have 5 or more drinks on one occasion: 0 (Never). AUDIT-C = 0 negative The patient denies current drug use.. The patient does not report social/occupational/legal consequences associated with drug or alcohol use. The patient is a nonsmoker. FAMILY OF ORIGIN: She was raised by parents. She described his childhood as normal. The patient had 2 siblings. The patient's parents are still living and siblings are still living . She is currently close with her family. The patient reports a family history of cancer/BRCA. Maternal aunt had breast cancer. MARITAL FAMILY/SIGNIFICANT RELATIONSHIPS: Ms. Reis is currently .The patient has 3 children, including son 14yo, daughter 12yo and son 10yo. The patient s significant other is supportive. She describes her family life as good. Other social supports include extended family, rastafari community, and friends The patient reports that her social supports are supportive. 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 She enjoys her work. Her work is supportive regarding her cancer treatment. CURRENT STRESSORS: The patient reports the following stressors: financial problems and medical problems COPING STRATEGIES: The patient reports the following coping strategies: none identified. These coping strategies have been ineffective. The patient notes baptism practice is: Church . The patient's cultural identity/ethnicity is: . LEISURE/EXERCISE: Pt enjoys time with her family. SLEEP/APPETITE: The patient reports problems falling asleep: Yes The patient reports problems staying asleep:Yes The patient reports the following quality of sleep:poor Total sleep time: varies The patient's current weight is 211 lbs. Her BMI is 33.05. The patient reports normal appetite. The patient describes her eating pattern as consistent. BODY IMAGE/SEXUALITY: Pt is having difficulty adjusting to physical changes. MENTAL STATUS EXAMINATION: Appearance: normal grooming Eye contact: normal Rapport: easy. Orientation: alert and oriented in all spheres (time, person, place, situation, object) Approach to evaluation/attitude toward examiner: cooperative Mood: depressed Affect: appropriate. Self worth: average. Body Image: Within Normal Limits Suicidal/homicidal ideation: Pt denied suicidal/homicidal ideation, plan and intent. Recall/Memory: normal Attention: normal Concentration:Normal Speech: within normal limits with regard to rate, tone and volume Psychomotor activity: average. Thought process: no evidence of formal thought disorder. Abstract thinking: normal. Though content: within normal limits Hallucinations/Illusions: none Intellectual functioning: average. Insight: intact Judgment: normal PROVISIONAL DIAGNOSTIC IMPRESSION Primary Diagnoses: Adjustment Disorder with depressed mood Psychological Factors Affecting Breast Cancer Personality Diagnoses:No diagnosis Global Assessment of Functionin-61 Some mild symptoms or some difficulty in social, occupational, or school functioning, but generally functioning pretty well. IMPRESSIONS: 1)The patient has depressed mood and adjustment difficulties in adjustment to/exacerbated by breast cancer 2) Patient strengths include intact support system and spirituality. 3) Symptom management issues include depressed mood and insomnia. 4) Stressors and complicating factors include financial issues. TREATMENT PLAN AND RECOMMENDATIONS: 1) Individual psychotherapy for adjustment and depressive symptoms. 2) Continue to use strengths such as intact supports and spirituality. 3) Treatment targets include depressed mood, insomnia. 5) Practice sleep hygiene and guided meditation with resources provided in today's session. Above recommendations and treatment plan will be communicated back to the referring physician by way of the shared medical record. Thank you for this referral. Please feel free to call or page with any questions. ___ Skip Richardson PhD Psychologist, Breast Center Pager [phone] documented in this encounter [facility] 08-01-2023 Nurse Note Written discharge instructions given and reviewed with patient. Patient verbalizes understanding. Encouraged to call with any questions or concerns. Instruction for 4 week phone call follow up appointment given per Dr. Garcai. 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 Positive DCIS margin. It's ER negative (<1%), WI negative (<1%) and Her2 3+. DELIVERED DOSE: 5000 cGy in 25 fractions treating to the 100% isodose line with 10 MV and 2 segmented martinez. ELAPSED TIME: 32 days. TOLERANCE/ RESPONSE: She has occasional mild soreness in the right axillary tail region. Mild pruritus. Mild erythema of the right chest wall. REMARKS: She tolerated radiation treatment well. Four week follow-up with me. Staff Physician JOSEFINA GARCIA M.D. 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 Positive DCIS margin. It's ER negative (<1%), WI negative (<1%) and Her2 3+. COURSE: post-operative AREA TREATED: Right chest wall CURRENT DOSE: 4600 cGy in 23 fx PLANNED DOSE: 5000 cGy in 25 fx SUBJECTIVE: She has occasional mild soreness in the right axillary tail region. Mild pruritus. EXAM: KPS: 90 General Appearance: Alert and oriented. No acute distress. Radiation dermatitis: Mild erythema of the right chest wall. IMAGING/LAB RESULTS: None Treatment chart checked: Yes Patient treatment site reviewed and verified:Yes Port films reviewed and current:Yes Medications started: Tylenol as needed. Hydrocortisone cream as needed. ASSESSMENT/PLAN: Clinically stable. Toxicity within expected parameters. Continue radiation treatment as planned. Josefina Garcia MD documented in this encounter [facility] 07-30-2023 Nurse Note Radiation Therapy - Nursing Note (OTV) PATIENT NAME: Kimberly Reis PATIENT July 30, 2023 [facility] FACILITY/LOCATION: [facility] NOTE TYPE: BREAST Subjective Data see pain assessment Additional Data Do you want to see a Sas Developer? No Status: Patient states there is no possibility she is at this time. Stress Scale: On a scale of 0 to 10, what number best describes how much distress you have experienced in the past week?(0 being no distress and 10 being extreme distress) 6 Social work notified: Pt denied need to see social media campaign manager at this time. Nursing Assessment Fatigue: moderate; causing difficulty performing some activities Appetite: good Nutritional Intake: Regular oral intake. Weight Gain/Loss: No Ambulatory weight history: Last 6 Encounter Wt Readings: Date: Wt: 06/13/2023 95.7 kg (211 lb) 06/13/2023 95.7 kg (211 lb) 06/06/2023 94.7 kg (208 lb 12.8 oz) 05/30/2023 94.8 kg (209 lb) 05/12/2023 96.4 kg (212 lb 8 oz) 04/14/2023 100.7 kg (222 lb) Nausea:None Vomiting: None Bowel Function: normal bowel movements Erythema/Hyperpigmentation:mild Desquamation:none Rash:mild Skin Care: Aquaphor Skin Sensation: mild itching Focused Assessment BREAST: Lymphedema Assessment: Is the patient noting any swelling? No. SIGNED by: Marcie Yee RN documented in this encounter [facility] 07-23-2023 Note [facility] 07-23-2023 Note [facility] 07-23-2023 History of Present illness Narrative Radiation Therapy - Nursing Note (OTV) PATIENT NAME: Kimberly Reis PATIENT July 23, 2023 [facility] FACILITY/LOCATION: [facility] NOTE TYPE: BREAST Subjective Data Emotionally fatiqued, Additional Data Do you want to see a Sas Developer? No Status: Patient states there is no possibility she is at this time. Stress Scale: On a scale of 0 to 10, what number best describes how much distress you have experienced in the past week?(0 being no distress and 10 being extreme distress) 2 Social work notified: no Nursing Assessment Fatigue: increased fatigue over baseline but not altering normal activities Appetite: good Nutritional Intake: Regular oral intake. Weight Gain/Loss: No Ambulatory weight history: Last 6 Encounter Wt Readings: Date: Wt: 06/13/2023 95.7 kg (211 lb) 06/13/2023 95.7 kg (211 lb) 06/06/2023 94.7 kg (208 lb 12.8 oz) 05/30/2023 94.8 kg (209 lb) 05/12/2023 96.4 kg (212 lb 8 oz) 04/14/2023 100.7 kg (222 lb) Nausea:None Vomiting: None Bowel Function: normal bowel movements Erythema/Hyperpigmentation:none Desquamation:none Rash:none Skin Care: Aquaphor Skin Sensation: mild burning Focused Assessment BREAST: Lymphedema Assessment: Is the patient noting any swelling? No. 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 Positive DCIS margin. It's ER negative (<1%), WI negative (<1%) and Her2 3+. COURSE: post-operative AREA TREATED: Right chest wall CURRENT DOSE: 3600 cGy in 18 fx PLANNED DOSE: 5000 cGy in 25 fx SUBJECTIVE: She has occasional mild soreness in the right axillary tail region. EXAM: KPS: 90 General Appearance: Alert and oriented. No acute distress. Radiation dermatitis: Slight erythema of the right chest wall. IMAGING/LAB RESULTS: None Treatment chart checked: Yes Patient treatment site reviewed and verified:Yes Port films reviewed and current:Yes Medications started: Tylenol as needed. ASSESSMENT/PLAN: Clinically stable. Toxicity within expected parameters. Continue radiation treatment as planned. Josefina Garcia MD documented in this encounter [facility] 07-15-2023 Note [facility] 07-11-2023 Note [facility] 07-11-2023 History of Present illness Narrative Episode Visit Count: 2 Therapist That Will Accept/Oversee The Plan Of Care: Kassie Colindres Start of Care Date: 06/09/23 Onset Date: 04/22/23 Patient Identified by Name and Date of : Yes [facility] PHYSICAL THERAPY PROGRESS REPORT PLAN OF CARE UPDATE: Assessment: Kimberly Reis demonstrates difficulty with developing some soft tissue restrictions in sub/axillary, lateral chest and under breast on R and improvements in reaching overhead and use hand with arm at shoulder level. She has progressed toward goals. Patient continues to present with impairments in overall function, range of motion, and soft tissue restrictions that interfere with reaching overhead . Current prognosis is Excellent due to: current objective clinical presentation, good overall health status, good support system/ coping skills . She will benefit from continued skilled therapy services to meet the updated goals for this plan of care as noted below. Goals for Episode of Care: created on 06/09/23 through 08/09/23 Goals updated on 07/11/2023. Patient able to verbalize skin care and lymphedema risk reductions (Met) Patient/family independent with home exercise program including skincare guidelines, scar massage, ROM exercises, and garment instructions (Met) Patient will increase active ROM of R shld to 160-180deg flex and abd to allow patient to achieve neutral postural alignment, for improved performance of ADLs. Patient will decrease pain to: 0/10 with all activity (Partially Met) Patient will have supple scar with no tenderness to palpation and demonstrate and understanding of scar management (Partially Met) Patient will demonstrate understanding of techniques used to address axillary webbing Patient will have increased function and be able to perform reaching overhead, and all daily and work activities with the involved UE (Partially Met) Planned Interventions, Frequency, and Duration: 1x every other week, 4 weeks Total Number of Visits Planned: 2 Patient to be seen for Therapeutic exercise (48950), Neuromuscular re-education (78169), Manual therapy (08268), Self-assisted management (85398), Patient/Family/Caregiver Education PLAN FOR NEXT VISIT: Reassess shld AROM and soft tissue condition. May progress exercises as appropriate. (possibly add scapular retractions, serratus press) SUBJECTIVE: Pt states she is undergoing radiation now (just finished her second week and has 3 more to go.) Just noticed last night some tightness subaxillary, lateral chest and under her breast. Notes she is using aquafor lotion and started doing some gentle stretching/ROM. Stitches have been removed without issue. She notes good incision site healing and no problems there. Notes she is not standing on her tip toes now to reach things (improved reaching function and mobility). Functional Limitations: reaching overhead Pain: Pain Pain Level: 0 Post Treatment Pain Post Treatment Pain Level: 0 PROMIS Scales Higher is Better 06/07/2023 Phys Func - Score 48 (within normal limits) Phys Func - Percentile 42 % Self-Eff Symptom - Score 51 (Average) Self-Eff Symptom - Percentile 54 % T-scores: mean of general population = 50. 5 points is clinically meaningfully difference Percentiles provide an indication of how the patient's score ranks in relation to the general population. Higher percentile rankings indicate better function/quality of life. 50th percentile is the average of the general population and indicates half of respondents had a worse score. OBJECTIVE MEASURES WITH LEVEL OF FUNCTION: Lymphedema Skin Comments:: Good healing incision sites with no signs of infection. No cording. Soft tissue restrictions sub/axilla, lateral thoracic, and under breast on R. UE PROM R Shoulder Flex: 140 Degrees (a little bit of pulling axilla area) R Shoulder ABduction: 175 Degrees (very minimal pulling posterior proximal upper arm) R Shoulder External Rotation: 60 Degrees TREATMENT: Therapeutic Exercise: 1: *doorway shld ER stretch 3 x 30 sec holds 2: *doorway pec stretch 3 x 30 sec holds 3: *supine butterfly stretch with pillow supporting R elbow (to avoid elbow going too far apart) 3 x 30 sec 4: Reviewed decongestive exercises (HEP) and good skin care and precautions now that pt has started radiation treatments. Informed of recommendation to obtianand wear compression sleeve when traveling by airplane. Skilled Intervention: Patient was educated in proper exercise technique and purpose for exercises. Reviewed and educated patient on additions/changes for home exercise program as above (*). Skilled judgment was used in selection of appropriate interventions. Provided written instruction for home exercise program to facilitate proper performance and compliance. Correct performance of therapeutic exercises was facilitated with verbal and visual cuing. Additional time necessary for objective measurements and reassessment due to plan of care update. Patient education as noted. Self-Correction Management: 1: Reviewed soft tissue changes to expect with radiation and avoiding aggressive stretches or ROM as skin and soft tissue is more vulnerable. Skilled Intervention: Skilled judgment in the selection of proper modification for activity of daily living/home management based on clinical presentation, deficits, and needs. Educated the patient regarding recommendations and provided written instruction to facilitate compliance. Reviewed patient specific diagnosis in relation to activities of daily living/home management. 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 Positive DCIS margin. It's ER negative (<1%), WI negative (<1%) and Her2 3+. COURSE: post-operative AREA TREATED: Right chest wall CURRENT DOSE: 600 cGy in 3 fx PLANNED DOSE: 5000 cGy in 25 fx SUBJECTIVE: She is doing well without any specific new complaints. EXAM: KPS: 100 General Appearance: Alert and oriented. No acute distress. Radiation dermatitis: No IMAGING/LAB RESULTS: None Treatment chart checked: Yes Patient treatment site reviewed and verified:Yes Port films reviewed and current:Yes Medications started: None ASSESSMENT/PLAN: Clinically stable. No signs of toxicity. Continue radiation treatment as planned. Josefina Garcia MD documented in this encounter [facility] 07-02-2023 Nurse Note Radiation Therapy - Nursing Note (OTV) PATIENT NAME: Kimberly Reis PATIENT July 02, 2023 [facility] FACILITY/LOCATION: [place] [facility] NOTE TYPE: BREAST Subjective Data no complaints Additional Data Do you want to see a Sas Developer? No Status: Patient states there is no possibility she is at this time. Stress Scale: On a scale of 0 to 10, what number best describes how much distress you have experienced in the past week?(0 being no distress and 10 being extreme distress) 5 Social work notified: Pt denied need to see social media campaign manager at this time. Nursing Assessment Fatigue: none Appetite: good Nutritional Intake: Regular oral intake. Weight Gain/Loss: No Ambulatory weight history: Last 6 Encounter Wt Readings: Date: Wt: 06/13/2023 95.7 kg (211 lb) 06/13/2023 95.7 kg (211 lb) 06/06/2023 94.7 kg (208 lb 12.8 oz) 05/30/2023 94.8 kg (209 lb) 05/12/2023 96.4 kg (212 lb 8 oz) 04/14/2023 100.7 kg (222 lb) Nausea:None Vomiting: None Bowel Function: normal bowel movements Erythema/Hyperpigmentation:none Desquamation:none Rash:none Skin Care: Aquaphor Skin Sensation: Within Normal Limits Focused Assessment BREAST: Lymphedema Assessment: Is the patient noting any swelling? No. SIGNED by: Marcie Yee RN documented in this encounter [facility] 06-24-2023 Note [facility] 06-24-2023 Note [facility] 06-24-2023 Note [facility] 06-24-2023 Nurse Note Radiation Therapy - Patient Education Note PATIENT NAME: Kimberly Reis PATIENT June 24, 2023 [facility] FACILITY/LOCATION: [place] READINESS TO LEARN Cognitive Ability: Alert and oriented Motivation to learn: Eager Family Support: High - Very involved in pt care Instruction provide to: Patient Patient learns best by: Individual Instruction Written Instruction - Hand-outs Verbal Instruction Factors effecting learning: None Physical limitations effecting learning: None LEARNING RESPONSE Diagnosis: Pt simulated today for radiation therapy to right breast. Education Topic/Teaching Points: Radiation therapy, Side effects, and OTV: Method of instruction: Teach Back skin care Individual instruction Written instruction - handouts Verbal instruction Patient /Family response: Patient verbalized understanding of radiation treatments, side effects, OTV, and transportation. Follow-up plan: Complete - No need for follow-up Contact information given. Supplemental material: Informational handouts on Deodorant, Fatigue, and Skin changes. Referral (recommendation): None, Pt denied need for social work, van service, and cheese cooker. Signed by: Marcie Yee RN documented in this encounter [facility] 06-24-2023 History of Present illness Narrative She has decided to pursue postmastectomy radiation treatment. I explained the rationale, benefits, alternative management options and potential complications of radiation treatment to the patient and she understands and agrees to proceed. It was explained and understood that other personnel such as radiation therapists, teletypist, and physicists will participate in planning and delivery of radiation treatment. Permanent tattoo yeager will be placed to aid with positioning for daily treatment and the patient consented. Patient will have a simulation procedure today. 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 It's ER negative (<1%), WI negative (<1%) and Her2 3+. AREA:Right Chest Wall. PATIENT POSITION: Supine. CONTRAST: None PROTOCOL: None BLOCKING: Custom blocking to be determined at treatment planning. FIXATION DEVICE: In order to achieve accurate and reproducible treatments, the patient is to be immobilized with AIO orfit system. PROCEDURE: A time-out was conducted and recorded by the therapist. Patient was simulated on the CT scanner for external beam radiation therapy. Treatment site was marked by the simulation therapist. ASSESSMENT/PLAN: Patient tolerated simulation procedure well. Treatments will be initiated after treatment planning. The patient is scheduled for a verification simulation on the treatment machine to ensure proper set-up and field arrangement is correct prior to the first treatment of primary and boost martinez if applicable. Electronically Signed Josefina Garcia M.D./mehdi 1:57 AM documented in this encounter [facility] 06-13-2023 Note HNO ID: [id number] Author: María Ceron MD Service: ? Author Type: Physician Type: Progress Notes Filed: 06/20/2023 3:43 PM Note Text: CC: post op HPI: Kimberly Reis is a 37 year old female who presents s/p right breast reconstruction with tissue die forger (current volume 600 cc of saline) 04/22/2023 Time postop: ~2 months 05/30/23, debridement of necrotic tissue on the right breast was performed with layered closure. Doing well Patient denies fevers, chills, n/v/d, sob, chest pain, difficulty breathing, incisional breakdown or drainage, leg swelling/redness/warmth. She is happy with current TE size. She is fully expanded. She has met with her oncologist this morning. XRT is indicated. fluconazole (DIFLUCAN) 150 mg tablet Take one tablet at first sign of yeast infection. May repeat in 72 hours if still symptomatic. mupirocin (BACTROBAN) 2 % ointment Apply to affected area twice daily. Apply after cleansing incisions with soap and water and patting dry. Cover with dry gauze. cefADROxil (DURICEF) 500 mg capsule Take 1 capsule by mouth twice daily. To finish current course of antibiotic (Patient not taking: Reported on 05/22/2023) gabapentin (NEURONTIN) 100 mg capsule Take 1 capsule by mouth three times daily as needed for up to 30 days. traMADol (ULTRAM) 50 mg tablet Take 1 tablet by mouth every 4 hours as needed for pain. aspirin 81 mg chewable tablet Take 1 tablet by mouth once daily. acetaminophen (TYLENOL) 325 mg tablet Take 3 tablets by mouth every 6 hours as needed for pain. ondansetron (ZOFRAN) 4 mg tablet Take 1 tablet by mouth every 8 hours as needed for nausea/vomiting. econazole nitrate (ECONAZOLE TOPICAL) Apply to affected area. (Patient not taking: Reported on 05/15/2023) OZEMPIC 1 mg/dose (4 mg/3 mL) pen 2 mg. amLODIPine (NORVASC) 10 mg tablet Take 10 mg by mouth once daily. amoxicillin (AMOXIL) 500 mg capsule 500 mg. Pre dental work BASAGLAR KWIKPEN U-100 INSULIN 100 unit/mL (3 mL) Inject 34 Units subcutaneously daily at bedtime. losartan (COZAAR) 25 mg tablet Take 100 mg by mouth once daily. warfarin (COUMADIN) 5 mg tablet Take 2 tablets by mouth daily as directed. (Patient taking differently: Take 11 mg by mouth once daily. 11mg Fri 12 Sat Sun) metoprolol succinate ER (TOPROL XL) 100 mg Take 100 mg by mouth once daily. montelukast (SINGULAIR) 10 mg tablet Take 10 mg by mouth daily at bedtime. omeprazole magnesium (PRILOSEC ORAL) Take 40 mg by mouth once daily. Levothyroxine 100 mcg cap Take 100 mcg by mouth once daily. Allergies: ALLERGIES Allergen Reactions Adhesive Tape (Noy* tears skin Sulfa (Sulfonamide * Hives REVIEW OF SYSTEMS As above General: No fever, chills Cardiac: No chest pain, palpitations, or leg swelling Respiratory: No cough or shortness of breath GI: No N/V or diarrhea All other reviewed and negative other than HPI. PHYSICAL EXAM: LMP 09/29/2020 GEN: Well appearing, alert, in no acute distress, well-hydrated, well nourished. BREAST: right breast soft, non-tender, with no evidence of exudate right breast incision well approximated, c/d/i No seroma, no hematoma Mild post operative swelling Mild post operative ecchymosis No s/s of infection Well healed right breast incision Sutures were removed in clinic without complication. Bacitracin and DSD placed over incision. A/P: Post op As expected, healing well Right breast incision is fully healed. Sutures removed without complication Right tissue die forger is fully expanded and patient happy with size OK to proceed with XRT -Shower regularly to keep the incisions clean and inspect for signs of infection (due to decreased sensation). -No water submersion/baths until all incisions fully healed, typically this takes 6 weeks. -Walking is encouraged, this helps reduce swelling and lowers the chance of blood clots. -Activity restrictions reviewed with patient. Okay to raise arm above head at 2 weeks if drains have all been removed and you do not have any wound healing issues. -No lifting/pushing/pulling greater than 10 lbs for 6 weeks after surgery. Do not perform roving frame tender such as laundry and vacuuming. Do not perform yard work or gardening. -Okay to sleep on your back and lie flat, do not sleep on the surgical side 3-4 weeks after recent procedure -Okay for tylenol alternating with ibuprofen for pain control (do not exceed 4 g tylenol in a 24 hour period, okay for ibuprofen 600-800 mg every 8 hours as needed for pain) -Okay for driving if not taking any narcotic pain medication and drains have been removed -continue silvadene ointment to incisions and cover with dry dressing until healed -Continue to wear surgical bra. - Informed patient to follow up with us 1 month post radiation to assess healing and discuss next steps for reconstruction -Consult to breast rehab placed. OK to start at (more content not included)... 06-13-2023 History of Present illness Narrative CC: post op HPI: Kimberly Reis is a 37 year old female who presents s/p right breast reconstruction with tissue die forger (current volume 600 cc of saline) 04/22/2023 Time postop: ~2 months 05/30/23, debridement of necrotic tissue on the right breast was performed with layered closure. Doing well Patient denies fevers, chills, n/v/d, sob, chest pain, difficulty breathing, incisional breakdown or drainage, leg swelling/redness/warmth. She is happy with current TE size. She is fully expanded. She has met with her oncologist this morning. XRT is indicated. fluconazole (DIFLUCAN) 150 mg tablet Take one tablet at first sign of yeast infection. May repeat in 72 hours if still symptomatic. mupirocin (BACTROBAN) 2 % ointment Apply to affected area twice daily. Apply after cleansing incisions with soap and water and patting dry. Cover with dry gauze. cefADROxil (DURICEF) 500 mg capsule Take 1 capsule by mouth twice daily. To finish current course of antibiotic (Patient not taking: Reported on 05/22/2023) gabapentin (NEURONTIN) 100 mg capsule Take 1 capsule by mouth three times daily as needed for up to 30 days. traMADol (ULTRAM) 50 mg tablet Take 1 tablet by mouth every 4 hours as needed for pain. aspirin 81 mg chewable tablet Take 1 tablet by mouth once daily. acetaminophen (TYLENOL) 325 mg tablet Take 3 tablets by mouth every 6 hours as needed for pain. ondansetron (ZOFRAN) 4 mg tablet Take 1 tablet by mouth every 8 hours as needed for nausea/vomiting. econazole nitrate (ECONAZOLE TOPICAL) Apply to affected area. (Patient not taking: Reported on 05/15/2023) OZEMPIC 1 mg/dose (4 mg/3 mL) pen 2 mg. amLODIPine (NORVASC) 10 mg tablet Take 10 mg by mouth once daily. amoxicillin (AMOXIL) 500 mg capsule 500 mg. Pre dental work STEPHANIE HORTA U-100 INSULIN 100 unit/mL (3 mL) Inject 34 Units subcutaneously daily at bedtime. losartan (COZAAR) 25 mg tablet Take 100 mg by mouth once daily. warfarin (COUMADIN) 5 mg tablet Take 2 tablets by mouth daily as directed. (Patient taking differently: Take 11 mg by mouth once daily. 11mg Fri 12 Sat Sun) metoprolol succinate ER (TOPROL XL) 100 mg Take 100 mg by mouth once daily. montelukast (SINGULAIR) 10 mg tablet Take 10 mg by mouth daily at bedtime. omeprazole magnesium (PRILOSEC ORAL) Take 40 mg by mouth once daily. Levothyroxine 100 mcg cap Take 100 mcg by mouth once daily. Allergies: ALLERGIES Allergen Reactions Adhesive Tape (Noy* tears skin Sulfa (Sulfonamide * Hives REVIEW OF SYSTEMS As above General: No fever, chills Cardiac: No chest pain, palpitations, or leg swelling Respiratory: No cough or shortness of breath GI: No N/V or diarrhea All other reviewed and negative other than HPI. PHYSICAL EXAM: LMP 09/29/2020 GEN: Well appearing, alert, in no acute distress, well-hydrated, well nourished. BREAST: right breast soft, non-tender, with no evidence of exudate right breast incision well approximated, c/d/i No seroma, no hematoma Mild post operative swelling Mild post operative ecchymosis No s/s of infection Well healed right breast incision Sutures were removed in clinic without complication. Bacitracin and DSD placed over incision. A/P: Post op As expected, healing well Right breast incision is fully healed. Sutures removed without complication Right tissue die forger is fully expanded and patient happy with size OK to proceed with XRT -Shower regularly to keep the incisions clean and inspect for signs of infection (due to decreased sensation). -No water submersion/baths until all incisions fully healed, typically this takes 6 weeks. -Walking is encouraged, this helps reduce swelling and lowers the chance of blood clots. -Activity restrictions reviewed with patient. Okay to raise arm above head at 2 weeks if drains have all been removed and you do not have any wound healing issues. -No lifting/pushing/pulling greater than 10 lbs for 6 weeks after surgery. Do not perform roving frame tender such as laundry and vacuuming. Do not perform yard work or gardening. -Okay to sleep on your back and lie flat, do not sleep on the surgical side 3-4 weeks after recent procedure -Okay for tylenol alternating with ibuprofen for pain control (do not exceed 4 g tylenol in a 24 hour period, okay for ibuprofen 600-800 mg every 8 hours as needed for pain) -Okay for driving if not taking any narcotic pain medication and drains have been removed -continue silvadene ointment to incisions and cover with dry dressing until healed -Continue to wear surgical bra. - Informed patient to follow up with us 1 month post radiation to assess healing and discuss next steps for reconstruction -Consult to breast rehab placed. OK to start at 4 weeks post op. Please call [phone] to schedule, change, cancel or confirm an appointment. -Consult to breast psychology placed today The patient is seen and examined by Dr. Ceron and the following reflects his service. Scribed by Kusum Adamson By signing my name below, I, Kusum Adamson, attest that this documentation has been prepared under the direction and in the presence of Dr. Ceron Electronically signed, Kim Pollock June 13, 2023 11:39 AM Provider Attestation: I, María Ceron MD, personally performed the services described in this documentation. All medical record entries made by the scribe were at my direction and in my presence. I have reviewed the chart and discharge instructions (if applicable) and agree that the record reflects my personal performance and is accurate and complete. Dr. 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 It's ER negative (<1%), WI negative (<1%) and Her2 3+. INTERVAL HISTORY: Since I saw her in February for high grade DCIS with suspicious microinvasion, she underwent right mastectomy and die forger placement and sentinel node biopsy on 04/22/23. Pathology showed microinvasive grade 3 DCIS. There were total 17 foci of invasion. Surgical margins were negative with invasive carcinoma but positive with DCIS focally at the superior radial margin. Two sentinel nodes were negative for metastasis. She is here to discuss the role of postmastectomy radiation treatment. ALLERGIES Allergen Reactions Adhesive Tape (Noy* tears skin Sulfa (Sulfonamide * Hives MEDICATIONS: fluconazole (DIFLUCAN) 150 mg tablet Take one tablet at first sign of yeast infection. May repeat in 72 hours if still symptomatic. mupirocin (BACTROBAN) 2 % ointment Apply to affected area twice daily. Apply after cleansing incisions with soap and water and patting dry. Cover with dry gauze. traMADol (ULTRAM) 50 mg tablet Take 1 tablet by mouth every 4 hours as needed for pain. acetaminophen (TYLENOL) 325 mg tablet Take 3 tablets by mouth every 6 hours as needed for pain. OZEMPIC 1 mg/dose (4 mg/3 mL) pen 2 mg. amLODIPine (NORVASC) 10 mg tablet Take 10 mg by mouth once daily. losartan (COZAAR) 25 mg tablet Take 100 mg by mouth once daily. warfarin (COUMADIN) 5 mg tablet Take 2 tablets by mouth daily as directed. (Patient taking differently: Take 11 mg by mouth once daily. 11mg Fri 12 Sat Sun) metoprolol succinate ER (TOPROL XL) 100 mg Take 100 mg by mouth once daily. montelukast (SINGULAIR) 10 mg tablet Take 10 mg by mouth daily at bedtime. omeprazole magnesium (PRILOSEC ORAL) Take 40 mg by mouth once daily. Levothyroxine 100 mcg cap Take 100 mcg by mouth once daily. cefADROxil (DURICEF) 500 mg capsule Take 1 capsule by mouth twice daily. To finish current course of antibiotic (Patient not taking: Reported on 05/22/2023) gabapentin (NEURONTIN) 100 mg capsule Take 1 capsule by mouth three times daily as needed for up to 30 days. aspirin 81 mg chewable tablet Take 1 tablet by mouth once daily. ondansetron (ZOFRAN) 4 mg tablet Take 1 tablet by mouth every 8 hours as needed for nausea/vomiting. econazole nitrate (ECONAZOLE TOPICAL) Apply to affected area. (Patient not taking: Reported on 05/15/2023) amoxicillin (AMOXIL) 500 mg capsule 500 mg. Pre dental work STEPHANIE HORTA U-100 INSULIN 100 unit/mL (3 mL) Inject 34 Units subcutaneously daily at bedtime. PHYSICAL EXAM: VS: BP 134/68 Pulse 82 Temp (!) 35.8 C (96.5 F) (Temporal) Resp 15 Wt 95.7 kg (211 lb) LMP 09/29/2020 BMI 33.05 kg/m KPS: 90 General Appearance: Alert and oriented. No acute distress. 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 It's ER negative (<1%), WI negative (<1%) and Her2 3+. She has positive DCIS margin. Her case was presented and discussed at the tumor board and observation was recommended. She is very much concerned about positive DCIS margin. I told her that positive margin doesn't necessarily mean that she will have local recurrence. In fact, data on patients with pure DCIS showed low risks of local recurrence after mastectomy even when margin is positive. I told her, though, that she may be at higher risk of local recurrence than an average patient on that study. Young age (less than 40), number of microinvasive foci (she has 17 invasive foci), and ER/WI negative status, and Her2 positive patients not getting targeted agents, are all associated with higher risks of local recurrence. As she has several unfavorable risk factors, her risks of local recurrence without radiation treatment may be at the borderline level at which we offer radiation treatment for risk reduction. I also told her about potential complications of radiation treatment such as acute and chronic radiation dermatitis, increased risks of implant complications leading to implant removal, and secondary malignancy. She expressed understandings and will let us know if she wishes to pursue radiation treatment. Signed by: Josefina Garcia MD cc: Jonas Sweet ([facility]) [address] [place] [id number] Scotty Morel documented in this encounter [facility] 06-13-2023 Nurse Note Radiation Therapy - Nursing Note (Follow-up) PATIENT NAME: Kimberly Reis PATIENT June 13, 2023 [facility] FACILITY/LOCATION: [place] Reason for visit: Follow up to discuss treatment options. Subjective Data No c/o Additional Data Do you want to see a Sas Developer? No Nursing Assessment Fatigue: increased fatigue over baseline but not altering normal activities Appetite: good Weight Gain/Loss: No Last 6 Encounter Wt Readings: Date: Wt: 06/13/2023 95.7 kg (211 lb) 06/06/2023 94.7 kg (208 lb 12.8 oz) 05/30/2023 94.8 kg (209 lb) 05/12/2023 96.4 kg (212 lb 8 oz) 04/14/2023 100.7 kg (222 lb) 03/20/2023 100.7 kg (222 lb) Bowel Function: normal bowel movements Bone Pain: none Focused Assessment BREAST: Lymphedema Assessment: Is the patient noting any swelling? No. Was approved? unknown SIGNED by: Carmen Ruano RN documented in this encounter [facility] 06-09-2023 Note [facility] 06-09-2023 History of Present illness Narrative Episode Visit Count: 1 Therapist That Will Accept/Oversee The Plan Of Care: Kassie Colindres Start of Care Date: 06/09/23 Onset Date: 04/22/23 Patient Identified by Name and Date of : Yes REHABILITATION AND SPORTS THERAPY PHYSICAL THERAPY EVALUATION PLAN OF CARE: Assessment: Kimberly Reis presents with chief complaint of limited R shld AROM and soft tissue restrictions post-op mastectomy that interferes with reaching overhead . She presents with impairments in overall function, range of motion, and soft tissue restrictions. PROMIS (Patient-Reported Outcomes Measurement Information System) scores were reviewed and physical function domain and self efficacy domain identified as within normal limits. Prognosis for therapy is Excellent due to: current objective clinical presentation, good overall health status, good support system/ coping skills . She will benefit from skilled therapy services to meet the goals established for this plan of care as noted below. Goals for Episode of Care: created on 06/09/23 through 08/09/23 Patient able to verbalize skin care and lymphedema risk reductions Patient/family independent with home exercise program including skincare guidelines, scar massage, ROM exercises, and garment instructions Patient will increase active ROM of R shld to 160-180deg flex and abd to allow patient to achieve neutral postural alignment, for improved performance of ADLs. Patient will decrease pain to: 0/10 with all activity Patient will have supple scar with no tenderness to palpation and demonstrate and understanding of scar management Patient will demonstrate understanding of techniques used to address axillary webbing Patient will have increased function and be able to perform reaching overhead, and all daily and work activities with the involved UE Patient Goals: Full ROM and no pain R shld, full function. Planned Interventions, Frequency, and Duration: Current Frequency: 1x every other week Duration: 8 weeks Total Number of Visits Planned: 4 Planned Treatment Interventions: Therapeutic exercise (83183), Neuromuscular re-education (32596), Manual therapy (73493), Self-assisted management (29155), Patient/Family/Caregiver Education PLAN FOR NEXT VISIT: Reassess shld AROM and inciison sites after pt has stitches removed. May add shld stretches as appropriate and/or progress HEP. Assess incision sites and soft tissue condition in regards to scar mobility, restrictions or cording. Patient demonstrates good understanding of plan of care and treatment. The above goals and plan of care were discussed and agreed upon by patient/family. SUBJECTIVE: Pt feels overall things are going well since the surgery. She notes she definitely has some limits as far as ROM. Pt notes she also had a mole surgically removed from the right side of her upper back a couple weeks before her breast surgery and feels this may be contributing as well. Stitches will be removed Friday. Pt hadnoticed some cording after the drain tube was removed, but notes it has resolved for the most part now. Patient Goals: Full ROM and no pain R shld, full function. 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 ) Frequency: Intermittent Post Treatment Pain Post Treatment Pain Level: 0 Post Treatment Pain Location: Shoulder - Right, Axilla - Right PROMIS Scales Higher is Better 06/07/2023 Phys Func - Score 48 (within normal limits) Phys Func - Percentile 42 % Self-Eff Symptom - Score 51 (Average) Self-Eff Symptom - Percentile 54 % T-scores: mean of general population = 50. 5 points is clinically meaningfully difference Percentiles provide an indication of how the patient's score ranks in relation to the general population. Higher percentile rankings indicate better function/quality of life. 50th percentile is the average of the general population and indicates half of respondents had a worse score. OBJECTIVE MEASURES WITH LEVEL OF FUNCTION: Lymphedema Presents with: Functional Limitations, Pain, Decreased knowledge of lymphedema management, Axillary Webbing Lymphedema Contributing Factors: Lymph Node Removal Relative Contra-indications to Compression: : Diabetes (caution PVD) Relative Contra-indications to Manual Lymph Drainage: : None Relative Contra-indications to Neck Manual Lymph Drainage: : Hyper/hypothyroidism Skin: Skin Comments Skin Comments:: No specific cording was palpated today R axilla. (Location where pt notes preivous cording was palpable is no longer palpable. proximal/medial axilla to proximal medial upper arm) Breast Cancer Related Stage of Lymphedema: At Risk- Limb volume 0%-3% greater than baseline Upper Extremity Circumferential Measurements R Thumb (proximal phalanx) (cm): 6.5 cm R Index Finger (proximal phalanx) (cm): 6.5 cm R Middle Finger (proximal phalanx) (cm): 6 cm R Ring Finger (proximal phalanx) (cm): 6 cm R Small Finger (proximal phalanx) (cm): 5.5 cm R DPC (cm): 20.5 cm R Distal Wrist Crease (DWC) (cm): 16 cm R 4 cm above wrist (cm): 17.5 cm R 8 cm above wrist (cm): 20 cm R 12 cm above wrist (cm): 27.5 cm R 16 cm above wrist (cm): 27 cm R 20 cm above wrist (cm): 27.5 cm (elbow) R 24 cm above wrist (cm): 32 cm R 28 cm above wrist (cm): 34 cm R 32 cm above wrist (cm): 36 cm R 36 cm above wrist (cm): 36 cm L Thumb (proximal phalanx) (cm): 6 cm L Index Finger (proximal phalanx) (cm): 6.5 cm L Middle Finger (proximal phalanx) (cm): 6 cm L Ring Finger (proximal phalanx) (cm): 6 cm L Small Finger (proximal phalanx) (cm): 5.5 cm L DPC (cm): 21 cm L Distal Wrist Crease (DWC) (cm): 16 cm L 4 cm above wrist (cm): 18.5 cm L 8 cm above wrist (cm): 22 cm L 12 cm above wrist (cm): 25.5 cm L 16 cm above wrist (cm): 27 cm L 20 cm above wrist (cm): 28 cm (elbow) L 24 cm above wrist (cm): 33 cm L 28 cm above wrist (cm): 35 cm L 32 cm above wrist (cm): 36 cm L 36 cm above wrist (cm): 37.5 cm Affected Arm : Right Arm Calculate Volume : Yes R Upper Extremity Volume: 2287.95 L Upper Extremity Volume: 2362.92 Difference in Volume: -74.97 Difference in % : -3.28 UE PROM R UE PROM: AROM L UE PROM: AROM R Shoulder Flex: 135 Degrees ( a little bit of pull sub axillary) R Shoulder ABduction: 160 Degrees ( A lot more pull, bordering on pain. subaxillary/lateral thoracic) R Shoulder Internal Rotation: (back of hand to lumbar spine, symmetrical) R Shoulder External Rotation: 70 Degrees L Shoulder Flex: 160 Degrees L Shoulder ABduction: 180 Degrees L Shoulder Internal Rotation: (back of hand to lumbar spine) L Shoulder External Rotation: 73 Degrees Education: Education Learning Preferences: Demonstration, Explanation Barriers: None Learning/educational needs: Home exercise program, Plan of Care, Lymphedema Program Education Provided: Yes, see treatment interventions for education provided Education Provided To: Patient Education Mode/Type: Demonstration, Explanation/Discussion, Literature/Printed Materials, Performance Response to Education/Teach Back: States/Identifies, Return Demonstration TREATMENT: PT Treatment Interventions: Therapeutic Exercise, Self-Correction Management Evaluation Therapeutic Exercise: 1: *Instructed pt in UE Decongestive exercises and pt performed correct return demonstration. Skilled Intervention: Patient was educated in proper exercise technique and purpose for exercises. Skilled judgment was provided in selection of appropriate interventions. Provided written instruction for home exercise program to facilitate proper performance and compliance. Correct performance of therapeutic exercises was facilitated with verbal and visual cuing. Patient education as noted. Self-Correction Management: 1: Educated in lymphedema and skin care/infection prevention. All questions were answered. Skilled Intervention: Skilled judgment in the selection of proper modification for activity of daily living/home management based on clinical presentation, deficits, and needs. Educated the patient regarding recommendations and provided written instruction to facilitate compliance. Reviewed patient specific diagnosis in relation to activities of daily living/home management. Billing * Evaluation Low Complexity: 1 Unit Therapeutic Exercise Treatment Minutes: 15 Self-Care/Home Management Treatment Minutes: 10 Total Session Time (minutes): 38 Session Start Time : 1337 Session Stop Time : 1415 Kassie Colindres PT documented in this encounter [facility] 06-06-2023 Note HNO ID: [id number] Author: María Ceron MD Service: ? Author Type: Physician Type: Progress Notes Filed: 06/06/2023 2:21 PM Note Text: CC: post op HPI: Kimberly Reis is a 37 year old female who presents s/p right breast reconstruction with tissue die forger (current volume 600 cc of saline) 04/22/2023 Time postop: 1.5 months Per [facility] 05/30/23, debridement of necrotic tissue on the right breast was performed with layered closure. She is here for post-op She reports she does not need radiation or chemo post mastectomy- she is following up with her cancer team to double check this plan doxycycline hyclate (VIBRAMYCIN) 100 mg capsule Take 1 capsule by mouth twice daily for 10 days. fluconazole (DIFLUCAN) 150 mg tablet Take one tablet at first sign of yeast infection. May repeat in 72 hours if still symptomatic. mupirocin (BACTROBAN) 2 % ointment Apply to affected area twice daily. Apply after cleansing incisions with soap and water and patting dry. Cover with dry gauze. cefADROxil (DURICEF) 500 mg capsule Take 1 capsule by mouth twice daily. To finish current course of antibiotic (Patient not taking: Reported on 05/22/2023) gabapentin (NEURONTIN) 100 mg capsule Take 1 capsule by mouth three times daily as needed for up to 30 days. traMADol (ULTRAM) 50 mg tablet Take 1 tablet by mouth every 4 hours as needed for pain. aspirin 81 mg chewable tablet Take 1 tablet by mouth once daily. acetaminophen (TYLENOL) 325 mg tablet Take 3 tablets by mouth every 6 hours as needed for pain. ondansetron (ZOFRAN) 4 mg tablet Take 1 tablet by mouth every 8 hours as needed for nausea/vomiting. econazole nitrate (ECONAZOLE TOPICAL) Apply to affected area. (Patient not taking: Reported on 05/15/2023) OZEMPIC 1 mg/dose (4 mg/3 mL) pen 2 mg. amLODIPine (NORVASC) 10 mg tablet Take 10 mg by mouth once daily. amoxicillin (AMOXIL) 500 mg capsule 500 mg. Pre dental work BASAGLAR KWIKPEN U-100 INSULIN 100 unit/mL (3 mL) Inject 34 Units subcutaneously daily at bedtime. losartan (COZAAR) 25 mg tablet Take 100 mg by mouth once daily. warfarin (COUMADIN) 5 mg tablet Take 2 tablets by mouth daily as directed. (Patient taking differently: Take 11 mg by mouth once daily. 11mg Fri 12 Sat Sun) metoprolol succinate ER (TOPROL XL) 100 mg Take 100 mg by mouth once daily. montelukast (SINGULAIR) 10 mg tablet Take 10 mg by mouth daily at bedtime. omeprazole magnesium (PRILOSEC ORAL) Take 40 mg by mouth once daily. Levothyroxine 100 mcg cap Take 100 mcg by mouth once daily. Allergies: ALLERGIES Allergen Reactions Adhesive Tape (Noy* tears skin Sulfa (Sulfonamide * Hives REVIEW OF SYSTEMS As above General: No fever, chills Cardiac: No chest pain, palpitations, or leg swelling Respiratory: No cough or shortness of breath GI: No N/V or diarrhea All other reviewed and negative other than HPI. PHYSICAL EXAM: LMP 09/29/2020 GEN: Well appearing, alert, in no acute distress, well-hydrated, well nourished. BREAST: right breast soft, non-tender, with no evidence of exudate right breast incision well approximated, c/d/i No seroma, no hematoma Mild post operative swelling Mild post operative ecchymosis No s/s of infection A/P: Post op As expected, healing well -Shower regularly to keep the incisions clean and inspect for signs of infection (due to decreased sensation). -No water submersion/baths until all incisions fully healed, typically this takes 6 weeks. -Walking is encouraged, this helps reduce swelling and lowers the chance of blood clots. -Activity restrictions reviewed with patient. Okay to raise arm above head at 2 weeks if drains have all been removed and you do not have any wound healing issues. -No lifting/pushing/pulling greater than 10 lbs for 6 weeks after surgery. Do not perform roving frame tender such as laundry and vacuuming. Do not perform yard work or gardening. -Okay to sleep on your back and lie flat, do not sleep on the surgical side 3-4 weeks after recent procedure -Okay for tylenol alternating with ibuprofen for pain control (do not exceed 4 g tylenol in a 24 hour period, okay for ibuprofen 600-800 mg every 8 hours as needed for pain) -Okay for driving if not taking any narcotic pain medication and drains have been removed -continue silvadene ointment to incisions and cover with dry dressing until healed -Continue to wear surgical bra. -Consult to breast rehab placed. OK to start at 4 weeks post op. Please call [phone] to schedule, change, cancel or confirm an appointment. RTC next week to remove sutures and discuss next reconstruction steps The patient is seen and examined by Dr. Ceron and the following reflects his service. Scribed by Kusum Adamson By signing my name below, I, Kusum Adamson, attest that this documentation has been prepared under the direction and in the presence of Dr. Clayton (more content not included)... 06-06-2023 Miscellaneous Notes Patient returned call and scheduled. Nancy Gallagher LM for patient to return call. When patient calls, please schedule an EST/unknown if treated 30 minute appointment with note of discuss plan , preferable on 06/13. Nancy Gallagher Per Pt's MyChart message with questions regarding treatment plan Dr Garcia would like to have pt come in to discuss treatment plan. I spoke with pt and she is unavailable today or Friday but would be happy to come in another day next week to discuss. I did offer pt a phone conversation that could happen sooner if she prefers but she is willing to come in to discuss. PSR- Please contact pt to schedule an in person follow up with Dr Garcia to discuss plan on next Friday, 06/13. documented in this encounter [facility] 06-04-2023 Miscellaneous Notes Per Marcie, Dr. Garcia was going to give patient a call to discuss her concerns. Alfreda Lewis RN documented in this encounter [facility] 05-30-2023 Note HNO ID: [id number] Author: María Ceron MD Service: ? Author Type: Physician Type: Progress Notes Filed: 05/30/2023 5:06 PM Note Text: CC: Post op HPI: Kimberly Reis is a 37 year old female, s/p: Date of Surgery: 04/22/2023 Surgery: Right skin sparing mastectomy, right sentinel lymph node mapping with nuclear medicine, right sentinel lymph node mapping, blue dye, right sentinel lymph node biopsy, left breast mass excision w/ Dr. Morel, right breast reconstruction with tissue die forger (600 cc) and ADM performed on 04/22/23 following right mastectomy. Tissue die forger was 600 cc Allergan style MV filled with 200 cc of air and 300 cc of saline Time postop: 5 weeks Current R TE volume: 600cc/600cc NS She does not need RT or Chemo PMH is significant for aorta valve replacement x3 (most recent 2019) d/t congential bicuspid valve (currently on Coumadin) In previous visits, she was feeling pain like bruising underneath the right breast along ribcage that started 1 week post-op and worsened right before the remaining drain was removed. FELIPE drain culture: Many Staphylococcus aureus Abnormal She completed course of doxycycline (allergic to sulfa) this past Friday Continues to apply mupirocin to incision line BID She sent [employer] message last night reporting unroofing of scab from right breast incision with subsequent SS drainage from the area. Patient denies fevers, chills, n/v/d, sob, chest pain, difficulty breathing, leg swelling/redness/warmth. No new breast swelling, redness, or warmth. fluconazole (DIFLUCAN) 150 mg tablet Take one tablet at first sign of yeast infection. May repeat in 72 hours if still symptomatic. mupirocin (BACTROBAN) 2 % ointment Apply to affected area twice daily. Apply after cleansing incisions with soap and water and patting dry. Cover with dry gauze. cefADROxil (DURICEF) 500 mg capsule Take 1 capsule by mouth twice daily. To finish current course of antibiotic (Patient not taking: Reported on 05/22/2023) gabapentin (NEURONTIN) 100 mg capsule Take 1 capsule by mouth three times daily as needed for up to 30 days. traMADol (ULTRAM) 50 mg tablet Take 1 tablet by mouth every 4 hours as needed for pain. aspirin 81 mg chewable tablet Take 1 tablet by mouth once daily. acetaminophen (TYLENOL) 325 mg tablet Take 3 tablets by mouth every 6 hours as needed for pain. ondansetron (ZOFRAN) 4 mg tablet Take 1 tablet by mouth every 8 hours as needed for nausea/vomiting. econazole nitrate (ECONAZOLE TOPICAL) Apply to affected area. (Patient not taking: Reported on 05/15/2023) OZEMPIC 1 mg/dose (4 mg/3 mL) pen 2 mg. amLODIPine (NORVASC) 10 mg tablet Take 10 mg by mouth once daily. amoxicillin (AMOXIL) 500 mg capsule 500 mg. Pre dental work BASAGLAR RULA U-100 INSULIN 100 unit/mL (3 mL) Inject 34 Units subcutaneously daily at bedtime. losartan (COZAAR) 25 mg tablet Take 100 mg by mouth once daily. warfarin (COUMADIN) 5 mg tablet Take 2 tablets by mouth daily as directed. (Patient taking differently: Take 11 mg by mouth once daily. 11mg Fri 12 Tu Thurs Sat Sun) metoprolol succinate ER (TOPROL XL) 100 mg Take 100 mg by mouth once daily. montelukast (SINGULAIR) 10 mg tablet Take 10 mg by mouth daily at bedtime. omeprazole magnesium (PRILOSEC ORAL) Take 40 mg by mouth once daily. Levothyroxine 100 mcg cap Take 100 mcg by mouth once daily. Allergies: ALLERGIES Allergen Reactions Adhesive Tape (Noy* tears skin Sulfa (Sulfonamide * Hives REVIEW OF SYSTEMS As above General: No fever, chills Cardiac: No chest pain, palpitations, or leg swelling Respiratory: No cough or shortness of breath GI: No N/V or diarrhea All other reviewed and negative other than HPI. PHYSICAL EXAM: [facility] 09/29/2020 GEN: Well appearing, alert, in no acute distress, well-hydrated, well nourished. CHEST: Regular RR, no cough or dyspnea BREAST: Right breast soft, non-tender, with no evidence of exudate right breast incision well approximated, c/d/I, superficial appearing scabbing of the incision line. No drainage, no dehiscence observed. Right lower chest wall without fluctuance, erythema, induration, warmth, or pain on palpation. +right axillary cording from axilla to bicep No seroma, no hematoma Mild post operative swelling Mild post operative ecchymosis No s/s of infection After prepping the breast with chloraprep, accessed R TE with 21 g needle. 100 cc NS placed. Assessment: Superficial ischemia of the right incision sloughing off which caused an increase in drainage from the wound. Given the necrotic tissue remaining the decision is to excise any of the necrotic tissue and close the wound. Procedure: Preop diagnosis necrosis superficial of the right breast wound 6 x 1 cm Postoperative diagnosis same Procedure: Complex wound closure of right breast 6 cm (debridement of necrotic tissue and layered closure) (more content not included)... 05-28-2023 Note [facility] 05-28-2023 History of Present illness Narrative Patient reporting s/s of yeast infection. She previously reported adverse side effects from topical/intravaginal yeast infection treatments. Patient aware that her warfarin dose will likely need to be titrated down during tx with diflucan due to increased risk for bleeding with this medication and is in regular contact with her coumadin clinic. Has INR checked this Friday. Beena Pineda APRN.LOGISTICS 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 documented in this encounter [facility] 05-22-2023 Note [facility] 05-21-2023 Note [facility] 05-21-2023 History of Present illness Narrative POPULATION HEALTH NAVIGATION OUTREACH Action/FYI RP Patient Outreach: 2nd Attempt - Spoke with patient to schedule Breast Rehab. Patient scheduled RST Consult. Patient Identified by Name and : YES, via phone Outreach Outcome/Action Spoke to patient / parent / legal guardian: Patient scheduled Did you use a PCP flex slot to schedule this appointment? No Reason for Outreach Care Gap or Scheduling/Wellness visits Payer: Payor: ANTHEM / Plan: [employer] ACCESS PPO / Product Type: PPO / Care Gap Reviewed:: Specialty Scheduling Reminder: Reminder note to check Health Maintenance for items below Health Maintenance items due: HEPATITIS B(1 of 3 - 3-dose series) Never done PNEUMOCOCCAL(1 - PCV) Never done URINE ALBUMIN:CREATININE RATIO Never done SPIROMETRY Never done ANNUAL PCP TEAM CHRONIC DISEASE VISIT Never done HEPATITIS C SCREENING Never done HIV SCREENING Never done BP CONTROLLED (<130/80) Never done DTAP,TDAP,TD(1 - Tdap) Never done LDL CHOLESTEROL due on 11/23/2008 DILATED RETINAL EXAM due on 11/23/2008 PAP TESTING due on 01/04/2021 HPV TESTING due on 01/04/2021 HBA1C due on 02/14/2021 DIABETIC FOOT EXAM due on 05/04/2021 COVID-19 VACCINE(3 - Moderna series) due on 2021 DEPRESSION ASSESSMENT Never done INFLUENZA(1) due on 05/16/2023 Navigation Signature: Kassie Villavicencio Pss May 21, 2023 9:19 AM documented in this encounter [facility] 05-15-2023 Note [facility] 05-15-2023 History of Present illness Narrative CC: Post op HPI: Kimberly Reis is a 37 year old female, s/p: Date of Surgery: 04/22/2023 Surgery: Right skin sparing mastectomy, right sentinel lymph node mapping with nuclear medicine, right sentinel lymph node mapping, blue dye, right sentinel lymph node biopsy, left breast mass excision w/ Dr. Morel, right breast reconstruction with tissue die forger (600 cc) and ADM performed on 04/22/23 following right mastectomy. Tissue die forger was 600 cc Allergan style MV filled with 200 cc of air and 300 cc of saline Time postop: 3 weeks She does not need RT or Chemo! She is on coumadin -Remaining drain output <30cc in 24 H x 2 days. Output in drain is brown and murky, but appears SS in tubing. -Restarted duricef last Friday. -Neuropathic pain resolved. -Taking tylenol every 6-8 hours (1,000mg) -Right incisional ischemia has begun to slough as expected. She is applying mupirocin BID. She noticed a few drops of serous drainage from incision yesterday. Patient denies fevers, chills, n/v/d, sob, chest pain, difficulty breathing, leg swelling/redness/warmth. No new breast swelling, redness, or warmth. cefADROxil (DURICEF) 500 mg capsule Take 1 capsule by mouth twice daily for 7 days. Terconazole 80 mg vaginal suppository Use 1 Suppository vaginally daily at bedtime for 6 days. gabapentin (NEURONTIN) 100 mg capsule Take 1 capsule by mouth three times daily as needed for up to 30 days. fluconazole (DIFLUCAN) 150 mg tablet Take 1 tablet by mouth as directed. (Patient not taking: Reported on 05/12/2023) traMADol (ULTRAM) 50 mg tablet Take 1 tablet by mouth every 4 hours as needed for pain. mupirocin (BACTROBAN) 2 % ointment Apply to affected area twice daily. Apply after cleansing incisions with soap and water and patting dry. Cover with dry gauze. aspirin 81 mg chewable tablet Take 1 tablet by mouth once daily. acetaminophen (TYLENOL) 325 mg tablet Take 3 tablets by mouth every 6 hours as needed for pain. docusate sodium (COLACE) 100 mg capsule Take 1 capsule by mouth twice daily as needed for constipation. (Patient not taking: Reported on 05/12/2023) ondansetron (ZOFRAN) 4 mg tablet Take 1 tablet by mouth every 8 hours as needed for nausea/vomiting. econazole nitrate (ECONAZOLE TOPICAL) Apply to affected area. OZEMPIC 1 mg/dose (4 mg/3 mL) pen 2 mg. amLODIPine (NORVASC) 10 mg tablet Take 10 mg by mouth once daily. amoxicillin (AMOXIL) 500 mg capsule 500 mg. Pre dental work STEPHANIE HORTA U-100 INSULIN 100 unit/mL (3 mL) Inject 34 Units subcutaneously daily at bedtime. losartan (COZAAR) 25 mg tablet Take 100 mg by mouth once daily. warfarin (COUMADIN) 5 mg tablet Take 2 tablets by mouth daily as directed. (Patient taking differently: Take 11 mg by mouth once daily. 11mg Fri 12 Tu Th Sat Sun) metoprolol succinate ER (TOPROL XL) 100 mg Take 100 mg by mouth once daily. montelukast (SINGULAIR) 10 mg tablet Take 10 mg by mouth daily at bedtime. omeprazole magnesium (PRILOSEC ORAL) Take 40 mg by mouth once daily. Levothyroxine 100 mcg cap Take 100 mcg by mouth once daily. Allergies: ALLERGIES Allergen Reactions Adhesive Tape (Noy* tears skin Sulfa (Sulfonamide * Hives REVIEW OF SYSTEMS As above General: No fever, chills Cardiac: No chest pain, palpitations, or leg swelling Respiratory: No cough or shortness of breath GI: No N/V or diarrhea All other reviewed and negative other than HPI. PHYSICAL EXAM: [facility] 09/29/2020 GEN: Well appearing, alert, in no acute distress, well-hydrated, well nourished. CHEST: Regular RR, no cough or dyspnea BREAST: Right breast soft, non-tender, with no evidence of exudate right breast incision well approximated, c/d/I, superficial appearing ischemia of the incision line sloughing off to reveal re-epithelization as expected No seroma, no hematoma Mild post operative swelling Mild post operative ecchymosis No s/s of infection Bilateral breast FELIPE drains intact, SS drainage in tubing but brown and milky in the bulb, patent Culture obtained from FELIPE bulb Dr. Ceron in room to assess. OK to expand today After prepping the breast with chloraprep, accessed R TE with 21 g needle. 230cc air removed from die forger, 200cc NS placed. A/P: Post op As expected, healing well Superficial ischemia of the right incision sloughing off as expected. Continue to monitor and apply mupirocin twice daily. Expanded today Current volume: 500cc/600cc -Neuropathic pain resolved without gabapentin. -FELIPE drain #2 removed today without complication. -Cultured FELIPE drain fluid. -Continue duricef for 2 more days -Shower regularly to keep the incisions clean and inspect for signs of infection (due to decreased sensation). -No water submersion/baths until all incisions fully healed, typically this takes 6 weeks. -Walking is encouraged, this helps reduce swelling and lowers the chance of blood clots. -Activity restrictions reviewed with patient. Okay to raise arm above head at 2 weeks if drains have all been removed and you do not have any wound healing issues. -No lifting/pushing/pulling greater than 10 lbs for 6 weeks after surgery. Do not perform roving frame tender such as laundry and vacuuming. Do not perform yard work or gardening. -Okay to sleep on your back and lie flat, do not sleep on the surgical side 3-4 weeks after recent procedure -Okay for tylenol alternating with ibuprofen for pain control (do not exceed 4 g tylenol in a 24 hour period, okay for ibuprofen 600-800 mg every 8 hours as needed for pain) -Okay for driving if not taking any narcotic pain medication and drains have been removed -Continue silvadene ointment to incisions and cover with dry dressing until healed -Continue to wear surgical bra. -Consult to breast rehab placed. OK to start at 4 weeks post op. Please call [phone] to schedule, change, cancel or confirm an appointment, okay to schedule in 5 week RTC w/ Beena Pineda in 1 week for TE expansion. Beena Pineda APRN.LOGISTICS 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 documented in this encounter [facility] 05-14-2023 Note [facility] 05-14-2023 History of Present illness Narrative POPULATION HEALTH NAVIGATION OUTREACH Action/ Patient Outreach: Left voicemail for patient to call back to schedule in RST. Sent my chart message. (Please see [facility] order dated for (04/30/2023). Any agent can assist with scheduling. Patient Identified by Name and : NO Outreach Outcome/Action Unable to reach patient: Left message Did you use a PCP flex slot to schedule this appointment? No Reason for Outreach Care Gap or Scheduling/Wellness visits Payer: Payor: RAY / Plan: [employer] ACCESS PPO / Product Type: PPO / Care Gap Reviewed:: Specialty Scheduling Reminder: Reminder note to check Health Maintenance for items below Health Maintenance items due: HEPATITIS B(1 of 3 - 3-dose series) Never done PNEUMOCOCCAL(1 - PCV) Never done URINE ALBUMIN:CREATININE RATIO Never done SPIROMETRY Never done ANNUAL PCP TEAM CHRONIC DISEASE VISIT Never done HEPATITIS C SCREENING Never done HIV SCREENING Never done BP CONTROLLED (<130/80) Never done DTAP,TDAP,TD(1 - Tdap) Never done LDL CHOLESTEROL due on 11/23/2008 DILATED RETINAL EXAM due on 11/23/2008 PAP TESTING due on 01/04/2021 HPV TESTING due on 01/04/2021 HBA1C due on 02/14/2021 DIABETIC FOOT EXAM due on 05/04/2021 COVID-19 VACCINE(3 - Moderna series) due on 2021 DEPRESSION ASSESSMENT Never done Navigation Signature: Kassie Greer May 14, 2023 12:24 PM documented in this encounter [facility] 05-12-2023 Note [facility] 05-12-2023 History of Present illness Narrative HPI: The patient is a 37-year-old female with a past medical history significant for prosthetic aortic valve replacement, mechanical hemolysis, hypothyroidism, type 2 diabetes who was recently diagnosed with breast cancer. 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 She underwent valve replacement with a tissue valve, 23 mm try effective valve in May 2013. She also has DM2, GERD, HTN, asthma and hypothyroidism. Admitted to [facility] on 03/12/2020 after presenting to the ER with worsening dyspnea on exertion. On presentation she was found to have a hemoglobin of 8.0 g/dL. White count was 8000. Differential unremarkable. Platelet count 228,000. Patient was admitted to the PCU. And received a 2 unit red blood cell transfusion. She also was given a dose of iron sucrose, 200 mg. Stool was negative for occult blood. Following transfusion hemoglobin increased to 9 g/dL. She underwent a repeat echocardiogram that demonstrated an EF of 60% with moderate concentric left ventricular hypertrophy, stage II diastolic dysfunction and mean aortic valve gradient 67 mmHg consistent with severe aortic stenosis. This was thought secondary to the severe degree of anemia and a repeat echocardiogram in 4-6 weeks was planned. Coagulation times are normal. D-dimer was elevated at 0.61. Chemistry significant for normal bilirubin on admission at 0.7 mg/dL. LDH however was significantly elevated at 1132 unit(s)/L and haptoglobin was <10 mg/dL. Blood bank antibody screen was negative--direct Yoni test with polyspecific antiserum was negative. Ferritin was 12 nanograms per mL. TIBC was 365 mcg/dL. Iron saturation 7.4%. Vitamin B-12 404 pg per mL. Direct bilirubin normal. Patient underwent Mirena insertion on 03/28/2020. She had been having heavy menses for ~18 months. Passing clots. Occasional overflow from tampon. Recheck of CBC on 04/03 demonstrated white count 7500. Hemoglobin 10.6 g/dL with a platelet count of 292,000. Reticulocytes count was 5.68%. Haptoglobin was still less than 10. LDH not remeasured. Chemistry panel on that day demonstrated total bilirubin 0.70 mg/dL. AST was 67 with a normal ALT at 41. Was seen by power grader operator 04/07. Valve gradient down to 48 mmHg. She is on light duty at work. She is still short of breath with walking. Gets occasional anterior chest burning with walking and lying down especially on left side. Gets orthopnea with the pain as well. She doesn't notice pitting edema but power grader operator noticed trace pitting last OV. Was on Zantac chcf and started PPI 10/2019. She received parenteral iron. Had improvement in hemoglobin but had persistent evidence of ongoing hemolysis fairly well compensated. Repeatedly Yoni negative. Thorough work-up otherwise suggested no other etiology other than prosthetic valve dysfunction manifested as aortic valve stenosis and regurgitation. She underwent third redo sternotomy for aortic valve replacement using size 23, On-X mechanical valve on 06/19/2020. Bilateral diagnostic mammogram and US 01/09/2023: Breast Composition: The breasts are extremely dense, which lowers the sensitivity of mammography. The palpable abnormality corresponds to a 1.8 cm x 1.5 cm nodule in the upper lateral aspect of the right breast. Microcalcifications are seen within it. Correlation with ultrasound and biopsy is recommended. No other significant abnormalities are identified. RIGHT Breast: The palpable abnormality corresponds to a lobulated hypoechoic heterogeneous nodule at the 10:00 position of the breast at 3 cm from the nipple. This measures 9 mm x 6 mm x 8 mm. Biopsy recommended. Underwent right breast needle core biopsy on 02/04/2023. Pathology: A. 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 - Focus suspicious for stromal invasion. A multiplex immunostain for ADH5 was used in the evaluation of this material. The p63 and CK5/14 components highlight an intact myoepithelial cell layer while the luminal epithelium of interest has expression of only CK7/18, supporting the diagnosis of ductal carcinoma in situ. Rare scattered tumor cells are present in the stroma without myoepithelial lining, suspicious for stromal invasion. ER negative (<1%). She feels well in general and offers no complaints today. She remains on Coumadin for history of mechanical aortic valve. She underwent hysterectomy in October 2020 for menorrhagia. She bridged that procedure with Lovenox and after surgery was advised to stop Lovenox once her INR was at 1.8. 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 Presents for ongoing oncologic management. Interim history: Underwent right-sided simple mastectomy along with sentinel lymph node injection and tissue die forger placement on 04/22/2023. Pathology: 1. Right breast, mastectomy (A) - Multifocal microinvasive carcinoma arising in the background of extensive ductal carcinoma in situ (DCIS), nuclear grade 3, solid type with comedonecrosis and microcalcifications, (please see comment). -DCIS extends into adjacent lobules. -Biopsy site changes and biopsy clip (x1) are identified. -The surrounding breast tissue shows fibroadenomatoid change. 2. Right axillary sentinel lymph node, excision (B) - Two lymph nodes, negative for metastatic carcinoma (0/2). 3. Left breast, 9:00, oriented excision (C) - Benign breast tissue with ectatic ducts/cysts, fibrotic wall and adjacent chronic inflammatory infiltrate, (please see comment). SPECIMEN Procedure Total mastectomy Specimen Laterality Right TUMOR Histologic Type Micro-invasive carcinoma Tumor Size Microinvasion only (less than or equal to 1 mm) Tumor Focality Multiple foci of invasive carcinoma Number of Foci At least: 17 Ductal Carcinoma In Situ (DCIS) Present Architectural Patterns Solid Nuclear Grade Grade III (high) Necrosis Present, central (expansive comedo necrosis) Lymphatic and / or Vascular Invasion Not identified Treatment Effect in the Breast No known presurgical therapy MARGINS Margin Status for Invasive Carcinoma All margins negative for invasive carcinoma Distance from Invasive Carcinoma to Closest Margin Greater than: 2 mm Margin Status for DCIS DCIS present at margin Margin(s) Involved by DCIS superior radial (focal, spanning < 1 mm) REGIONAL LYMPH NODES Regional Lymph Node Status All regional lymph nodes negative for tumor Total Number of Lymph Nodes Examined (sentinel and non-sentinel) 2 Number of Sodus Nodes Examined 2 pTNM CLASSIFICATION (AJCC 8th Edition) Reporting of pT, pN, and (when applicable) pM categories is based on information available to the pathologist at the time the report is issued. As per the AJCC (Chapter 1, 8th Ed.) it is the managing physician s responsibility to establish the final pathologic stage based upon all pertinent information, including but potentially not limited to this pathology report. pT Category pT1mi T Suffix (m) pN Category pN0 N Suffix (sn) SPECIAL STUDIES Testing Performed on Case Number Pending Comment(s) Tumor block: A4. Still has drain. PAST MEDICAL HISTORY Diagnosis Date Aortic valve disorders Aortic valve disorders-stenosis Breast cancer (HCC) 01/2023 Diabetes mellitus (HCC) Diffuse cystic mastopathy Hypertension possibly d/t nuvaring Hypothyroid Irregular menstrual cycle Irregular periods Migraine without aura Peripheral vascular disease (HCC) PMH - PAST MEDICAL HISTORY OF glucose intolerance Unspecified asthma(493.90) as child PAST SURGICAL HISTORY Procedure Laterality Date BX OF BREAST; INCISIONAL Right 02/04/2023 DELIVERY ONLY 12/14/08 11/14/10 , low transverse DELIVERY ONLY 04/2013 COLONOSCOPY SCREENING 05/2020 HEART VALVE REPAIR HEART VALVE REPLACEMENT LAPS SURG CHOLECYSTECTOMY W/CHOLANGIOGRAPHY 02/24/2007 LIG/TRNSXJ FLP TUBE ABDL/VAG APPR UNI/BI 04/2013 Tubal ligation PAST SURGICAL HISTORY OF 1991 heart cath for suspected ASD PAST SURGICAL HISTORY OF wisdom teeth PAST SURGICAL HISTORY OF 11/18/2006 aortic valve re: assending aortic anneurysm stent placement PAST SURGICAL HISTORY OF needle breast BX PERIPHERAL VASCULAR INTERVENTION PRQ BALLOON VALVULOPLASTY AORTIC VALVE 1992 SHX AORTIC VALVE REPLACEMENT 06/2020 mechanical On-X TONSILLECTOMY HX ALLERGIES Allergen Reactions Adhesive Tape (Noy* tears skin Sulfa (Sulfonamide * Hives Current Outpatient Medications Medication Sig cefADROxil (DURICEF) 500 mg capsule Take 1 capsule by mouth twice daily for 7 days. Terconazole 80 mg vaginal suppository Use 1 Suppository vaginally daily at bedtime for 6 days. gabapentin (NEURONTIN) 100 mg capsule Take 1 capsule by mouth three times daily as needed for up to 30 days. traMADol (ULTRAM) 50 mg tablet Take 1 tablet by mouth every 4 hours as needed for pain. mupirocin (BACTROBAN) 2 % ointment Apply to affected area twice daily. Apply after cleansing incisions with soap and water and patting dry. Cover with dry gauze. aspirin 81 mg chewable tablet Take 1 tablet by mouth once daily. acetaminophen (TYLENOL) 325 mg tablet Take 3 tablets by mouth every 6 hours as needed for pain. ondansetron (ZOFRAN) 4 mg tablet Take 1 tablet by mouth every 8 hours as needed for nausea/vomiting. econazole nitrate (ECONAZOLE TOPICAL) Apply to affected area. OZEMPIC 1 mg/dose (4 mg/3 mL) pen 2 mg. amLODIPine (NORVASC) 10 mg tablet Take 10 mg by mouth once daily. amoxicillin (AMOXIL) 500 mg capsule 500 mg. Pre dental work STEPHANIE HORTA U-100 INSULIN 100 unit/mL (3 mL) Inject 34 Units subcutaneously daily at bedtime. losartan (COZAAR) 25 mg tablet Take 100 mg by mouth once daily. metoprolol succinate ER (TOPROL XL) 100 mg Take 100 mg by mouth once daily. montelukast (SINGULAIR) 10 mg tablet Take 10 mg by mouth daily at bedtime. omeprazole magnesium (PRILOSEC ORAL) Take 40 mg by mouth once daily. Levothyroxine 100 mcg cap Take 100 mcg by mouth once daily. fluconazole (DIFLUCAN) 150 mg tablet Take 1 tablet by mouth as directed. (Patient not taking: Reported on 05/12/2023) docusate sodium (COLACE) 100 mg capsule Take 1 capsule by mouth twice daily as needed for constipation. (Patient not taking: Reported on 05/12/2023) warfarin (COUMADIN) 5 mg tablet Take 2 tablets by mouth daily as directed. (Patient taking differently: Take 11 mg by mouth once daily. 11mg Fri 12 Tu Sat Sun) No current facility-administered medications for this visit. Family History Problem Relation Age of Onset Thyroid Mother Assending aortic anneurysm Hypertension Mother Aortic valve replacement Diabetes Mother Diabetes Father Hypertension Father Lipids Father Multiple Sclerosis Sister 30 Hypertension Brother Heart Maternal Grandmother a fib Emphysema Maternal Grandmother Dementia Maternal Grandmother Osteoporosis Maternal Grandfather Prostate Cancer Maternal Grandfather Arthritis Maternal Grandfather No Known Problems Paternal Grandmother Diabetes Paternal Grandfather Breast Cancer Maternal Aunt at age 47 Auto-Immune Disorder Maternal Aunt Lupus Cancer Paternal Uncle bile duct Maternal aunt above had IDC ER/WI negative, HER2 positive at age 46 in 2008. Alive and well now. ROS: Constitutional: No fever. No drenching night sweats. Normal appetite. No unexplained weight loss. No significant fatigue. Neuro: No recent STOUT, vertigo, dizziness or imbalance. No symptoms of sensory neuropathy. HEENT: No recent change in voice, vision or hearing. Resp: No cough, wheeze of hemoptysis. No shortness of breath at rest. Stable dyspnea when carrying laundry up the stairs. CVS: Palpitations. No exertional chest pain, PND or orthopnea. Mild, chronic lower extremity swelling. No symptoms of claudication. No painful or tender varicose veins. GI: No dysphagia or odynophagia. No reflux, n/v, change in bowel habits. No abdominal pain, bloating or distension. No black or bloody stools. : No dysuria or gross hematuria. Endo: No hot flashes. No polyuria or polydipsia. No heat or cold intolerance. Musculoskeletal: No bone, back, joint and muscular pain. Derm: No current rash. No history of jaundice. No diffuse pruritis. Heme: No unusual bleeding and unexplained bruising. Psych: Normal mood. Hysterectomy for menorrhagia 10/2020. PHYSICAL EXAM: Vitals: Blood pressure 129/80, pulse 84, temperature 36.8 C (98.3 F), weight 96.4 kg (212 lb 8 oz), last menstrual period 09/29/2020, SpO2 97 %. Well-appearing and in no acute distress. EYES: Sclerae are anicteric bilaterally. LYMPHATIC: There is no palpable cervical, supraclavicular, axillary adenopathy. RESPIRATORY: Inspiratory breath sounds are of normal intensity in all martinez. No rales, wheezes or rhonchi. CARDIOVASCULAR: Rhythm is regular. There is a valve click along with a slight systolic murmur. BREAST: Family acted as reset merchandiser. Right breast die forger in place. Transverse incision healing well small area of superficial ischemia no necrosis. ABDOMEN: The abdomen is nondistended. No tenderness. Extremities: No swelling today. SKIN: No jaundice. 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 -pT1mi(m) pN0(sn) M0 ER/WI negative, HER2 positive pathologic stage IA -Reviewed tumor board recommendations. Radiation not recommended. No adjuvant chemotherapy or HER2 directed therapy recommended. Not a candidate for endocrine therapy due to ER/WI negative status. -Discussed surveillance recommendation for MRI. I would also favor annual mammogram which would be more sensitive for calcifications. Plan: -OV in about 3 months. Portions of this documentation were copied and pasted from previous office visit notes in order to provide a cohesive continuity of the history. The note has been reviewed and edited and updated as necessary. Activity Duration Chart accessed 10 minutes Exam room 14 minutes Current session 7 minutes Total time: 32 minutes* I spent a total of 35 minutes on the date of the service which included preparing to see the patient, [id number] patient care, completing clinical documentation, obtaining and/or reviewing separately obtained history, performing a medically appropriate examination, counseling and educating the patient/family/caregiver, communicating with other HCPs (not separately reported), and communicating results to the patient/family/caregiver. Scotty Garcia DO documented in this encounter [facility] 05-08-2023 Note [facility] 05-08-2023 History of Present illness Narrative CC: Post op HPI: Kimberly Reis is a 37 year old female, s/p: Date of Surgery: 04/22/2023 Surgery: Right skin sparing mastectomy, right sentinel lymph node mapping with nuclear medicine, right sentinel lymph node mapping, blue dye, right sentinel lymph node biopsy, left breast mass excision w/ Dr. Morel, right breast reconstruction with tissue die forger (600 cc) and ADM performed on 04/22/23 following right mastectomy. Tissue die forger was 600 cc Allergan style MV filled with 200 cc of air and 300 cc of saline Time postop: 2 weeks Unsure about RT or chemotherapy at this time. She is on coumadin -Recording FELIPE drain #1 output: 5.5, 5, 7, 5.5 SS. Will keep drain #[address] for one more week -She finished abx last Friday. -She was prescribed tramadol last week when she saw Dr. Ceron. She is taking one tablet every day and a half -Complains of hot zinging pain mostly on the right in subaxillary region unrelieved by tylenol or tramadol. -Taking tylenol every 6-8 hours (1,000mg) -Right incisional ischemia has not changed since last visit. She is applying mupirocin BID. fluconazole (DIFLUCAN) 150 mg tablet Take 1 tablet by mouth as directed. traMADol (ULTRAM) 50 mg tablet Take 1 tablet by mouth every 4 hours as needed for pain. mupirocin (BACTROBAN) 2 % ointment Apply to affected area twice daily. Apply after cleansing incisions with soap and water and patting dry. Cover with dry gauze. aspirin 81 mg chewable tablet Take 1 tablet by mouth once daily. acetaminophen (TYLENOL) 325 mg tablet Take 3 tablets by mouth every 6 hours as needed for pain. docusate sodium (COLACE) 100 mg capsule Take 1 capsule by mouth twice daily as needed for constipation. ondansetron (ZOFRAN) 4 mg tablet Take 1 tablet by mouth every 8 hours as needed for nausea/vomiting. econazole nitrate (ECONAZOLE TOPICAL) Apply to affected area. OZEMPIC 1 mg/dose (4 mg/3 mL) pen 2 mg. amLODIPine (NORVASC) 10 mg tablet Take 10 mg by mouth once daily. amoxicillin (AMOXIL) 500 mg capsule 500 mg. Pre dental work BASAGLAR SAMPEN U-100 INSULIN 100 unit/mL (3 mL) Inject 34 Units subcutaneously daily at bedtime. losartan (COZAAR) 25 mg tablet Take 100 mg by mouth once daily. warfarin (COUMADIN) 5 mg tablet Take 2 tablets by mouth daily as directed. (Patient taking differently: Take 11 mg by mouth once daily.) metoprolol succinate ER (TOPROL XL) 100 mg Take 100 mg by mouth once daily. montelukast (SINGULAIR) 10 mg tablet Take 10 mg by mouth daily at bedtime. omeprazole magnesium (PRILOSEC ORAL) Take 40 mg by mouth once daily. Levothyroxine 100 mcg cap Take 100 mcg by mouth once daily. Allergies: ALLERGIES Allergen Reactions Adhesive Tape (Noy* tears skin Sulfa (Sulfonamide * Hives REVIEW OF SYSTEMS As above General: No fever, chills Cardiac: No chest pain, palpitations, or leg swelling Respiratory: No cough or shortness of breath GI: No N/V or diarrhea All other reviewed and negative other than HPI. PHYSICAL EXAM: LMP 09/29/2020 GEN: Well appearing, alert, in no acute distress, well-hydrated, well nourished. CHEST: Regular RR, no cough or dyspnea BREAST: Right breast soft, non-tender, with no evidence of exudate right breast incision well approximated, c/d/I, superficial appearing ischemia of the incision line that is expected to slough off. No seroma, no hematoma Mild post operative swelling Mild post operative ecchymosis No s/s of infection Bilateral breast FELIPE drains intact, SS drainage, patent A/P: Post op As expected, healing well Superficial ischemia of the right incision expected to slough off. Continue to monitor and apply mupirocin twice daily. Will hold off on tissue expansion for one more week. -Neuropathic pain unrelieved with current pain regimen. Will trial low dose of gabapentin at this time. Advised her not to take this concurrently with tramadol. -FELIPE drain #1 removed today without complication. FELIPE drain #2 to be removed next week. -Shower regularly to keep the incisions clean and inspect for signs of infection (due to decreased sensation). -No water submersion/baths until all incisions fully healed, typically this takes 6 weeks. -Walking is encouraged, this helps reduce swelling and lowers the chance of blood clots. -Activity restrictions reviewed with patient. Okay to raise arm above head at 2 weeks if drains have all been removed and you do not have any wound healing issues. -No lifting/pushing/pulling greater than 10 lbs for 6 weeks after surgery. Do not perform roving frame tender such as laundry and vacuuming. Do not perform yard work or gardening. -Okay to sleep on your back and lie flat, do not sleep on the surgical side 3-4 weeks after recent procedure -Okay for tylenol alternating with ibuprofen for pain control (do not exceed 4 g tylenol in a 24 hour period, okay for ibuprofen 600-800 mg every 8 hours as needed for pain) -Okay for driving if not taking any narcotic pain medication and drains have been removed -Continue silvadene ointment to incisions and cover with dry dressing until healed -Continue to wear surgical bra. - too early to remove the drain - prescribed tramadol -Consult to breast rehab placed. OK to start at 4 weeks post op. Please call [phone] to schedule, change, cancel or confirm an appointment, okay to schedule in 5 week RTC w/ Beena Pineda in 1 week for drain removal and possible TE expansion. Beena Pineda APRN.GARRISON documented in this encounter [facility] 05-08-2023 Note [facility] 05-02-2023 Note [facility] 05-02-2023 History of Present illness Narrative Ordered diflucan Patient advised to check with her Community Health Educator who manages coumadin prior to taking the diflucan Godwin Redmond MD documented in this encounter [facility] 05-02-2023 Miscellaneous Notes Patient called again asking that a prescription for DIFLUCAN be called in. She sent a my chart message today. Not sure who is here from the green team documented in this encounter [facility] 05-01-2023 Note [facility] 05-01-2023 History of Present illness Narrative CC: Post op HPI: Kimberly Reis is a 37 year old female, s/p: Date of Surgery: 04/22/2023 Surgery: Right skin sparing mastectomy, right sentinel lymph node mapping with nuclear medicine, right sentinel lymph node mapping, blue dye, right sentinel lymph node biopsy, left breast mass excision w/ Dr. Morel, right breast reconstruction with tissue die forger (600 cc) and ADM performed on 04/22/23 following right mastectomy. Time postop: 9 days -Recording FELIPE drain output x2, more than 30 cc daily for 2 consecutive days. -Pain is not well controlled w/ current medication, taking scheduled tylenol, cannot take ibuprofen mupirocin (BACTROBAN) 2 % ointment Apply to affected area twice daily. Apply after cleansing incisions with soap and water and patting dry. Cover with dry gauze. aspirin 81 mg chewable tablet Take 1 tablet by mouth once daily. acetaminophen (TYLENOL) 325 mg tablet Take 3 tablets by mouth every 6 hours as needed for pain. oxyCODONE IR (ROXICODONE) 5 mg immediate release tablet Take 1 tablet by mouth every 6 hours as needed for pain. docusate sodium (COLACE) 100 mg capsule Take 1 capsule by mouth twice daily as needed for constipation. ondansetron (ZOFRAN) 4 mg tablet Take 1 tablet by mouth every 8 hours as needed for nausea/vomiting. cefADROxil (DURICEF) 500 mg capsule Take 1 capsule by mouth twice daily for 10 days. econazole nitrate (ECONAZOLE TOPICAL) Apply to affected area. OZEMPIC 1 mg/dose (4 mg/3 mL) pen 2 mg. amLODIPine (NORVASC) 10 mg tablet Take 10 mg by mouth once daily. amoxicillin (AMOXIL) 500 mg capsule 500 mg. Pre dental work BASAGLAR KWIKPEN U-100 INSULIN 100 unit/mL (3 mL) Inject 34 Units subcutaneously daily at bedtime. losartan (COZAAR) 25 mg tablet Take 100 mg by mouth once daily. warfarin (COUMADIN) 5 mg tablet Take 2 tablets by mouth daily as directed. (Patient taking differently: Take 11 mg by mouth once daily.) metoprolol succinate ER (TOPROL XL) 100 mg Take 100 mg by mouth once daily. montelukast (SINGULAIR) 10 mg tablet Take 10 mg by mouth daily at bedtime. omeprazole magnesium (PRILOSEC ORAL) Take 40 mg by mouth once daily. Levothyroxine 100 mcg cap Take 100 mcg by mouth once daily. Allergies: ALLERGIES Allergen Reactions Adhesive Tape (Noy* tears skin Sulfa (Sulfonamide * Hives REVIEW OF SYSTEMS As above General: No fever, chills Cardiac: No chest pain, palpitations, or leg swelling Respiratory: No cough or shortness of breath GI: No N/V or diarrhea All other reviewed and negative other than HPI. PHYSICAL EXAM: [facility] 09/29/2020 GEN: Well appearing, alert, in no acute distress, well-hydrated, well nourished. CHEST: Regular RR, no cough or dyspnea BREAST: Right breast soft, non-tender, with no evidence of exudate right breast incision well approximated, c/d/i No seroma, no hematoma Mild post operative swelling Mild post operative ecchymosis No s/s of infection Bilateral breast FELIPE drains intact, SS drainage, patent A/P: Post op As expected, healing well -Shower regularly to keep the incisions clean and inspect for signs of infection (due to decreased sensation). -No water submersion/baths until all incisions fully healed, typically this takes 6 weeks. -Walking is encouraged, this helps reduce swelling and lowers the chance of blood clots. -Activity restrictions reviewed with patient. Okay to raise arm above head at 2 weeks if drains have all been removed and you do not have any wound healing issues. -No lifting/pushing/pulling greater than 10 lbs for 6 weeks after surgery. Do not perform roving frame tender such as laundry and vacuuming. Do not perform yard work or gardening. -Okay to sleep on your back and lie flat, do not sleep on the surgical side 3-4 weeks after recent procedure -Okay for tylenol alternating with ibuprofen for pain control (do not exceed 4 g tylenol in a 24 hour period, okay for ibuprofen 600-800 mg every 8 hours as needed for pain) -Okay for driving if not taking any narcotic pain medication and drains have been removed -Continue silvadene ointment to incisions and cover with dry dressing until healed -Continue to wear surgical bra. - too early to remove the drain - prescribed tramadol -Consult to breast rehab placed. OK to start at 4 weeks post op. Please call [phone] to schedule, change, cancel or confirm an appointment, okay to schedule in 5 week RTC w/ Beena Pineda in 1 week The patient is seen and examined by Dr. Ceron and the following reflects his service. Scribed by Kusum Adamson By signing my name below, I, Kusum Adamson, attest that this documentation has been prepared under the direction and in the presence of Dr. Ceron Electronically signed, Kim Pollock May 01, 2023 4:01 PM Provider Attestation: IMaría MD, personally performed the services described in this documentation. All medical record entries made by the scribe were at my direction and in my presence. I have reviewed the chart and discharge instructions (if applicable) and agree that the record reflects my personal performance and is accurate and complete. Dr. María Ceron MD May 02, 2023 4:31 PM documented in this encounter [facility] 04-30-2023 Note [facility] 04-30-2023 History of Present illness Narrative BREAST CANCER POST OPERATIVE FOLLOW-UP SERVICE DATE: 04/30/23 SURGERY DATE: 04/22/23 POSTOPERATIVE VISIT #1 I have communicated my name and active licensure. The patient's identity and physical location were verified at the time of this visit. Either the patient or their legal software sales representative has been informed of the risks and benefits of -- and alternatives to -- treatment through a remote evaluation and consents to proceed with the evaluation remotely. SUBJECTIVE: Kimberly Reis is a 37 year old year old female who is s/p a RIGHT skin sparing mastectomy, RIGHT sentinel lymph node mapping and biopsy, LEFT breast mass excision performed by Dr. Morel (Breast Surgeon) on 04/22/2023 Reconstruction portion of surgery, placement of tissue die forger, was performed by Dr. Ceron (Plastic Surgeon) She reports < 30ml of daily drainage output from the drains for the past 2 days. Continues on antibiotics daily and applying Bactroban to the incisions. She reports some bruising which is improving (on Coumdin). Denies any redness, swelling or discharge from the incision. She denies any fever or chills. Pain of the surgical site is reported as minimal and intermittent, but states the drains are very uncomfortable. OBJECTIVE: PHYSICAL EXAM: Deferred d/t video examination (Seeing plastic team tomorrow) SURGICAL PATHOLOGY: FINAL DIAGNOSIS 1. Right breast, mastectomy (A) - Multifocal microinvasive carcinoma arising in the background of extensive ductal carcinoma in situ (DCIS), nuclear grade 3, solid type with comedonecrosis and microcalcifications, (please see comment). -DCIS extends into adjacent lobules. -Biopsy site changes and biopsy clip (x1) are identified. -The surrounding breast tissue shows fibroadenomatoid change. 2. Right axillary sentinel lymph node, excision (B) - Two lymph nodes, negative for metastatic carcinoma (0/2). 3. Left breast, 9:00, oriented excision (C) - Benign breast tissue with ectatic ducts/cysts, fibrotic wall and adjacent chronic inflammatory infiltrate, (please see comment). PJM/cristi/04/25/23 Diagnosis Comment CCM Part 1 - Multifocal invasive carcinoma and DCIS are associated with the coil clip. There are at least 17 foci of microinvasive carcinoma identified. Tissue from the 10:00 axis has been sampled, which showed fibroadenomatoid change. A multiplex immunostain for ADH5 (p63, CK7/18, CK5/14), was used in the evaluation of this material. The p63 and CK5/14 components show an absence of myoepithelial cells surrounding the glands of interest while these glands have expression of CK7/18, supporting the diagnosis of invasive carcinoma. Similarly, SMMS1 shows loss of the myoepithelial cell layer. CKAE1/3 highlights the epithelial cells. Results of estrogen receptor, progesterone receptor and HER2 testing will be reported in an addendum. Part 2 - Immunohistochemistry for cytokeratin AE1/AE3 has been performed, which is negative for metastatic carcinoma. Part 3 - The specimen has been entirely submitted for histologic examination. This case was reviewed in consultation with Dr. Muniz, of the [facility] breast pathology department, who concurs. Laboratory Developed Test (LDT) Disclaimer: Performance characteristics of immunohistochemical, immunofluorescent and chromogenic in-situ hybridization tests have been determined by the performing laboratory within [facility] s [facility] ([facility], [facility], [facility], [facility], [facility], or [facility]) in a manner consistent with CLIA requirements. One or more of these tests have not been cleared or approved by the FDA. [facility] is regulated under CLIA as qualified to perform high-complexity testing. These tests are used for clinical purposes. They should not be regarded as investigational or for research. Positive and negative controls stain appropriately. Synoptic Report INVASIVE CARCINOMA OF THE BREAST: Resection 8th Edition - Protocol posted: 12/04/2022 INVASIVE CARCINOMA OF THE BREAST: EXCISION - All Specimens SPECIMEN Procedure Total mastectomy Specimen Laterality Right TUMOR Histologic Type Micro-invasive carcinoma Tumor Size Microinvasion only (less than or equal to 1 mm) Tumor Focality Multiple foci of invasive carcinoma Number of Foci At least: 17 Ductal Carcinoma In Situ (DCIS) Present Architectural Patterns Solid Nuclear Grade Grade III (high) Necrosis Present, central (expansive comedo necrosis) Lymphatic and / or Vascular Invasion Not identified Treatment Effect in the Breast No known presurgical therapy MARGINS Margin Status for Invasive Carcinoma All margins negative for invasive carcinoma Distance from Invasive Carcinoma to Closest Margin Greater than: 2 mm Margin Status for DCIS DCIS present at margin Margin(s) Involved by DCIS superior radial (focal, spanning < 1 mm) REGIONAL LYMPH NODES Regional Lymph Node Status All regional lymph nodes negative for tumor Total Number of Lymph Nodes Examined (sentinel and non-sentinel) 2 Number of Sodus Nodes Examined 2 pTNM CLASSIFICATION (AJCC 8th Edition) Reporting of pT, pN, and (when applicable) pM categories is based on information available to the pathologist at the time the report is issued. As per the AJCC (Chapter 1, 8th Ed.) it is the managing physician s responsibility to establish the final pathologic stage based upon all pertinent information, including but potentially not limited to this pathology report. pT Category pT1mi T Suffix (m) pN Category pN0 N Suffix (sn) SPECIAL STUDIES Testing Performed on Case Number Pending Comment(s) Tumor block: A4. . Breast Biomarkers RESULTS: Estrogen Receptor (ER) Negative <1% Stain intensity: not applicable Progesterone Receptor ([place]) Negative <1% Stain intensity: not applicable HER2 (ERBB2) IMMUNOHISTOCHEMISTRY ASSAY Interpretation: POSITIVE for HER2 (ERBB2) Expression Score: 3+ ASSESSMENT: Kimberly Reis, 37 year old year old female, s/p a RIGHT skin sparing mastectomy, RIGHT sentinel lymph node mapping and biopsy, LEFT breast mass excision performed by Dr. Morel (Breast Surgeon) on 04/22/2023 Reconstruction portion of surgery, placement of tissue die forger, was performed by Dr. Ceron (Plastic Surgeon) Final pathology results of LEFT breast report was benign, breast tissue with ectatic ducts/cysts, fibrotic wall and adjacent chronic inflammatory infiltrate Final pathology results of RIGHT breast reports Multifocal (17 foci) microinvasive carcinoma arising in the background of extensive DCIS, Grade 3, , 0/2 LN, ER- [place] -, HER2 + PATHOLOGICAL STAGE LEFT BREAST: p,T1mi,N0 POST OPERATIVE STATUS: Uncomplicated post-operative course, She initially presented on 03/13/2023 with RIGHT breast bloody nipple discharge, multiple enhancing masses and calcifications/ enhancement in the upper outer quadrant extending from the nipple to the middle depth. The 2 largest masses each measure 1.1 x 1.1 cm and 1.8 x 1.4 cm The entire area enhances in a heterogeneous pattern and measures at least 4.7 cm (AP) by 2.6 (transverse) by 3.6 (craniocaudal) centimeters. The enhancement extends up to, and may extend into the right nipple, this area also abuts the skin, although no suspicious dermal enhancement identified. Bx (open coil clip) shows DCIS with suspicion for invasion. There is a 1.0 cm level I right axillary lymph node,No discrete fatty hilum identified. There are other normal nodes in the right axilla with preserved alvin and normal cortices. (Abnormal LN not yet biopsied) ER- cTis could be T2, N0-1Mx Review of US of axilla performed on 03/17/2023, showed normal nodes, biopsy not indicated Genetic testing negative PLAN Pathology report reviewed by (Breast Surgeon) and with the patient. In light of the pathology findings, Ms Reis's case will be reviewed by the Breast Tumor Board for additional recommendations. Patient will be contacted with their feedback. All questions were answered and she had no further concerns. Instructions for wound management, the signs and symptoms of infection, and seroma development were reviewed with the patient. will follow-up with Dr. Garcia (Medical Oncologist) as scheduled on 05/12/2023, to discuss adjuvant systemic therapy. She will follow-up with Dr. María Ceron (Plastic Surgeon) as scheduled tomorrow, for post-op management of breast reconstruction. Patient will schedule a consult with an occupational therapist for lymphedema prevention strategies and education on range of motion management, once she is cleared by the Plastic Team. will follow-up with us in 6 months. She has our names and numbers to stay in touch if she has any questions, concerns or problems in the interim. Baldomero Manzanares PA-C documented in this encounter [facility] 04-28-2023 Miscellaneous Notes Spoke with patient and scheduled. Nancy Gallagher She'll need est complex OV with me in about 2 weeks. Scotty Garcia DO Patient is known to [facility] 02/19/2023. Pathology pending from 04/22/2023. Will forward message to Dr. Garcia on Friday. Lynda Waller LPN Please review and advise. Referral call - Breast Cancer - ref prov Baldomero Manzanares documented in this encounter [facility] 04-25-2023 Miscellaneous Notes Reviewed photos patient sent with Dr. Ceron. Called patient and left VM. Moderate amount of expected postoperative swelling and ecchymosis. There is some ecchymosis of the incision line. We advise diligent wound care and application of mupirocin twice daily. The squishy area is a pocket of air in her tissue die forger. No concerns for fluid collection or infection at this time. We see her next in clinic. Beena Pineda APRN.CNP Patient is 3 days s/p 1. Right skin sparing mastectomy. 2. Right sentinel lymph node mapping with nuclear medicine. 3. Right sentinel lymph node mapping, blue dye. 4. Right sentinel lymph node biopsy. 5. Left breast mass excision. W/Dr. Morel Right breast reconstruction with tissue die forger (CPT 28191) Right breast ADM acellular dermal matrix graft for implant position and coverage (Contour Perforated Thick Large 164 cm x 2 for total 328 cm ) (CPT 10572) Autoderm local tissue rearrangement of the breast: total for the breast/s 3 cm x 12 cm flap (CPT 91500-17 for <10cm ; 42202 for 10.1-30 cm ; 71777 30-60 cm : 53362 for each addition 30cm ) W/Dr. Ceron She is reporting more squishy swelling in the right axilla. No increase in pain, fevers, chills, n/v/d, breast redness/warmth/swelling, incisional breakdown or drainage. She is on Duricef and applying mupirocin to incision. She denies an axillary incision. She is also reporting coolness of mastectomy flap last night and bruising of the flap. Patient to send photos for review. Beena Pineda APRN.CNP Patient calling with questions about her surgery. She would like a call back at [phone] . documented in this encounter [facility] 04-25-2023 Miscellaneous Notes Follow-up call placed to patient. Confirmed she was able to greens picker the bactroban and she will apply today. Patient has some questions related to her reconstruction surgery, advised her to placed call to Dr. Ceron's office. All other questions answered. Confirmed post-op appointments for next week. Abby Maciel RN documented in this encounter [facility] 04-24-2023 Miscellaneous Notes BREAST HEALTH NURSE POST-OP PHONE CONTACT: Kimberly Reis returned my call. TOPICS ADDRESSED: PAIN ASSESSMENT: Yes LOCATION: under left arm and down her side PAIN SCALE: 3 on a scale of 0-10 PAIN CHARACTER: heavier, tighter, sore MEDICATIONS: Oxycodone and Tylenol EMOTIONAL ASSESSMENT: appropriate. ADJUSTMENT TO DIAGNOSIS AND TREATMENT: reflecting understanding. DRAIN CARE: 2 FELIPE drains patent with bloody drainage. INCISION SITE: showered this morning, small amount of blood from breast incision that did stop. Sites look good. NUTRITION: food intake: adequate. fluid intake: adequate. ACTIVITY AND EXERCISE: Understands ROM limitations with drains in place. Teach Back method of education performed. The patient verbalized understanding. FOLLOW UP: Appts scheduled with plastics surgeon and surgical PA I attempted to contact Natty by phone for a post-op update. I did not reach her. I left a VM with my name and number requesting a return call with an update, and to address any questions or concerns. documented in this encounter [facility] 04-23-2023 Note HNO ID: [id number] Author: Genaro Belcher Service: ? Author Type: ? Type: Plan of Care Filed: 04/23/2023 4:33 PM Note Text: PHARMACY BEDSIDE DELIVERY SERVICE Patient Name: Kimberly Reis The marked outpatient medications were Filled at: [place] and delivered to the patient's bedside to [facility] Medication List START taking these medications acetaminophen 325 mg tablet Commonly known as: TylenoL Take 3 tablets by mouth every 6 hours as needed for pain. cefADROxil 500 mg capsule Commonly known as: DURICEF Take 1 capsule by mouth twice daily for 10 days. docusate sodium 100 mg capsule Commonly known as: COLACE Take 1 capsule by mouth twice daily as needed for constipation. ondansetron 4 mg tablet Commonly known as: ZOFRAN Take 1 tablet by mouth every 8 hours as needed for nausea/vomiting. oxyCODONE IR 5 mg immediate release tablet Commonly known as: ROXICODONE Take 1 tablet by mouth every 6 hours as needed for pain. CHANGE how you take these medications aspirin 81 mg chewable tablet Take 1 tablet by mouth once daily. Start taking on: April 25, 2023 What changed: These instructions start on April 25, 2023. If you are unsure what to do until then, ask your doctor or other care provider. CONTINUE taking these medications amLODIPine 10 mg tablet Commonly known as: NORVASC amoxicillin 500 mg capsule Commonly known as: AMOXIL BASAGLAR KWIKPEN U-100 INSULIN 100 unit/mL (3 mL) Generic drug: insulin glargine ECONAZOLE TOPICAL levothyroxine 100 mcg Cap losartan 25 mg tablet Commonly known as: COZAAR metoprolol succinate ER 100 mg Commonly known as: TOPROL XL montelukast 10 mg tablet Commonly known as: SINGULAIR OZEMPIC 1 mg/dose (4 mg/3 mL) pen Generic drug: semaglutide PRILOSEC ORAL warfarin 5 mg tablet Commonly known as: COUMADIN Take 2 tablets by mouth daily as directed. You might also be taking other medications not listed above. If you have questions about any of your other medications, talk to the person who prescribed them or your Primary Care Provider. Genaro Belcher PAGER: [phone] April 23, 2023 4:32 PM 04-23-2023 Note Education (GENSF) KIMBERLY REIS ([id number]) 1985 F Date Time Provider Department 04/23/23 ABBY MACIEL Reason for Visit: Education Of Patient/family [[id number]] During your visit today, we recorded the following information about you: Allergies As of Date: 04/23/2023 Noted Allergy Reaction ADHESIVE TAPE (ROSINS) 11/13/2006 Comments: tears skin SULFA (SULFONAMIDE ANTIBIOTICS) 10/25/2005 4 - Hives Date Reviewed: 04/23/2023 Reviewed by: Marisabel Gupta RN - Fully Assessed Prescriptions as of 04/23/2023 - aspirin 81 mg chewable tablet Take 1 tablet by mouth once daily. - acetaminophen (TYLENOL) 325 mg tablet Take 3 tablets by mouth every 6 hours as needed for pain. - oxyCODONE IR (ROXICODONE) 5 mg immediate release tablet Take 1 tablet by mouth every 6 hours as needed for pain. - docusate sodium (COLACE) 100 mg capsule Take 1 capsule by mouth twice daily as needed for constipation. - ondansetron (ZOFRAN) 4 mg tablet Take 1 tablet by mouth every 8 hours as needed for nausea/vomiting. - cefADROxil (DURICEF) 500 mg capsule Take 1 capsule by mouth twice daily for 10 days. - econazole nitrate (ECONAZOLE TOPICAL) Apply to affected area. - OZEMPIC 1 mg/dose (4 mg/3 mL) pen 2 mg. - amLODIPine (NORVASC) 10 mg tablet Take 10 mg by mouth once daily. - amoxicillin (AMOXIL) 500 mg capsule 500 mg. Pre dental work - BASAGLAR KWIKPEN U-100 INSULIN 100 unit/mL (3 mL) Inject 34 Units subcutaneously daily at bedtime. - losartan (COZAAR) 25 mg tablet Take 100 mg by mouth once daily. - warfarin (COUMADIN) 5 mg tablet Take 2 tablets by mouth daily as directed. - metoprolol succinate ER (TOPROL XL) 100 mg Take 100 mg by mouth once daily. - montelukast (SINGULAIR) 10 mg tablet Take 10 mg by mouth daily at bedtime. - omeprazole magnesium (PRILOSEC ORAL) Take 40 mg by mouth once daily. - Levothyroxine 100 mcg cap Take 100 mcg by mouth once daily. Facility-Administered Medications as of 04/23/2023 - metoprolol succinate ER 100 mg tab(s) (TOPROL XL) - losartan 100 mg tab(s) (COZAAR) - montelukast 10 mg tab(s) (SINGULAIR) - levothyroxine 100 mcg tab(s) (SYNTHROID) - ondansetron orally disintegrating 8 mg tab(s) (ZOFRAN ODT) - ondansetron (PF) 4 mg injection (ZOFRAN) - prochlorperazine 5 mg injection (COMPAZINE) - calcium carbonate 500 mg chewable tab(s) (TUMS) - aluminum-magnesium hydroxide-simethicone 200-200-20 mg/5 mL 30 mL - docusate sodium 100 mg cap(s) (COLACE) - senna 8.6 mg tab(s) (SENOKOT) - diphenhydrAMINE 25 mg (BENADRYL) - diphenhydrAMINE 25 mg injection (BENADRYL) - benzocaine 1 Lozenge (CHOLORASEPTIC WARMING SORE THROAT) - phenol 1 Alna (CHLORASEPTIC) - melatonin 3 mg tab(s) - NaCl 0.9% iv flush bag - lactated ringers iv infusion - acetaminophen 650 mg tab(s) (TYLENOL) - ceFAZolin iv piggyback 2 g in D5W (iso-osmotic) 100 mL (ANCEF) - enoxaparin 100 mg injection (LOVENOX) - warfarin (COUMADIN) tab(s) 11 mg - dextrose 40 % 15 g - glucagon 1 mg injection - dextrose 10% iv bolus - insulin lispro injection (rapid acting) (HumaLOG) - oxyCODONE IR 5-10 mg tab(s) (ROXICODONE) - HYDROmorphone 0.4 mg injection (DILAUDID) Meds Comments as of 12/16/2011: Encounter Status:Closed by ABBY MACIEL on 04/23/23 04-23-2023 Note HNO ID: [id number] Author: Christo Appiah MD Service: General Surgery Author Type: Resident Type: Progress Notes Filed: 04/23/2023 1:36 PM Note Text: BREAST SURGERY PROGRESS NOTE Patient Name: Kimberly Reis STAFF: Nancy Morel DO SERVICE DATE: April 23, 2023 SERVICE TIME: 10:59 AM Subjective No acute events overnight, feeling well, pain is well controlled (R back skin excision irritated after lying on back), has ambulated and patient is up in chair this morning. Tolerating PO intake without n/v. Objective PHYSICAL EXAM: BP 138/73 Pulse 75 Temp 36.8 ?C (98.2 ?F) (Oral) Resp 18 Ht 170.2 cm (5' 7 ) Wt 100.7 kg (222 lb) LMP 09/29/2020 SpO2 100% BMI 34.77 kg/m? O2 Therapy: Room Air General Appearance: Well appearing, alert, in no acute distress, well-hydrated, well nourished. Skin: Skin color, texture, turgor normal, no suspicious rashes or lesions Lungs: Normal respiratory efforts, Sat > 96% Heart: Regular rate, extremities warm and well perfused without peripheral edema Extremities: No deformities, edema, skin discoloration, clubbing or cyanosis. Chest: R breast skin appears well perfused, minimally ecchymotic and without hematoma. Incision is clean/dry/intact. 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 ER- Now 1 Day Post-Op, s/p R skin-sparing mastectomy and SLNB and L breast excisional biopsy Doing well, pain is well controlled, RIGHT breast with viable skin flaps, FELIPE drain in place with minimal serosanguinous output - Encouraged IS and ambulation - Likely discharge today pending Plastics - Pain management with PRNs and breakthrough pain - FELIPE drain teaching - Discussed activity limitations, and postop instructions - Follow up in 1 week for wound check and discuss pathology Patient was seen and plan was discussed with attending Dr Ardiel Appiah MD 04-23-2023 Note HNO ID: [id number] Author: Abby Maciel RN Service: ? Author Type: Registered Nurse Type: Progress Notes Filed: 04/23/2023 9:27 AM Note Text: Visit made to the bedside, post-op day 1. Patient sitting up in bed, pain well controlled with oxycodone given to her last evening. Reviewed basic home going instructions, including: pain management, bowel management, drain care (JPx2), showering (surgical bra on), incision care, ROM/activity, nutrition/hydration, signs/sx infection and who to call. All questions answered and patient verbalizes understanding. Patient lives with who is primary CG. Three school-aged children also at home and her mother is helping as well. Provided drain bag to patient and instructed on how to use heart pillow. Breast nurse navigator will follow-up by phone after discharge. Abby Maciel RN 04-23-2023 History of Present illness Narrative Visit made to the bedside, post-op day 1. Patient sitting up in bed, pain well controlled with oxycodone given to her last evening. Reviewed basic home going instructions, including: pain management, bowel management, drain care (JPx2), showering (surgical bra on), incision care, ROM/activity, nutrition/hydration, signs/sx infection and who to call. All questions answered and patient verbalizes understanding. Patient lives with who is primary CG. Three school-aged children also at home and her mother is helping as well. Provided drain bag to patient and instructed on how to use heart pillow. Breast nurse navigator will follow-up by phone after discharge. Abby Maciel RN documented in this encounter [facility] 04-22-2023 Note Education (GENSF) KIMBERLY REIS June ([id number]) 1985 F Date Time Provider Department 04/22/23 ABBY MACIEL Reason for Visit: Education Of Patient/family [904] During your visit today, we recorded the following information about you: Allergies As of Date: 04/22/2023 Noted Allergy Reaction ADHESIVE TAPE (ROSINS) 11/13/2006 Comments: tears skin SULFA (SULFONAMIDE ANTIBIOTICS) 10/25/2005 4 - Hives Date Reviewed: 04/22/2023 Reviewed by: Kerrie Jones, RN - Fully Assessed Prescriptions as of 04/22/2023 - econazole nitrate (ECONAZOLE TOPICAL) Apply to affected area. - OZEMPIC 1 mg/dose (4 mg/3 mL) pen 2 mg. - amLODIPine (NORVASC) 10 mg tablet Take 10 mg by mouth once daily. - amoxicillin (AMOXIL) 500 mg capsule 500 mg. Pre dental work - BASAGLAR KWIKPEN U-100 INSULIN 100 unit/mL (3 mL) Inject 34 Units subcutaneously daily at bedtime. - losartan (COZAAR) 25 mg tablet Take 100 mg by mouth once daily. - warfarin (COUMADIN) 5 mg tablet Take 2 tablets by mouth daily as directed. - metoprolol succinate ER (TOPROL XL) 100 mg Take 100 mg by mouth once daily. - montelukast (SINGULAIR) 10 mg tablet Take 10 mg by mouth daily at bedtime. - omeprazole magnesium (PRILOSEC ORAL) Take 40 mg by mouth once daily. - aspirin 81 mg chewable tablet Take 1 tablet by mouth once daily. - Levothyroxine 100 mcg cap Take 100 mcg by mouth once daily. Facility-Administered Medications as of 04/22/2023 - lidocaine (PF) 10 mg/mL (1 %) 1-2 mg injection (XYLOCAINE) - lactated ringers iv infusion - NaCl 0.9% iv flush bag - ceFAZolin iv piggyback 2 g in D5W (iso-osmotic) 100 mL (ANCEF) - isosulfan blue 1 % injection (LYMPHAZURIN) - fentaNYL 50 mcg/mL injection (SUBLIMAZE) - rocuronium injection - propofol injection (DIPRIVAN) - midazolam (PF) injection (VERSED) - scopolamine 1 mg over 3 days (TRANSDERM-SCOP) - dexAMETHasone sodium phosphate injection (DECADRON) - esmolol injection (BREVIBLOC) - lidocaine HCl (PF) 20 mg/mL (2 %) injection - propofol infusion (DIPRIVAN) - lactated ringers iv infusion - magnesium sulfate 2 g in NaCl 0.9% 100 mL Meds Comments as of 12/16/2011: Encounter Status:Closed by ABBY MACIEL on 04/22/23 04-22-2023 Note HNO ID: [id number] Author: Abby Maciel RN Service: ? Author Type: Registered Nurse Type: Progress Notes Filed: 04/22/2023 11:38 AM Note Text: BREAST HEALTH NURSE POST-OPERATIVE DISCHARGE INSTRUCTIONS Prior to the patient's discharge from the hospital, the breast health nurse initiated post-op education with the patient. Visit made to the surgical area, patient is in surgery. Gift bag left with patient belongings. The patient was given the following: Heart shaped pillow -Yes Meditative book -Yes Support group information -Yes Breast nurse navigator will follow patient while in hospital. Patient will be contacted by phone to evaluate for further educational and emotional support needs. Abby Maciel RN 04-22-2023 Note HNO ID: [id number] Author: Christi Loja APRN.NEUROLOGICAL SURGERY TEACHER Service: Anesthesiology Author Type: Nurse [employer] Professor Type: Anesthesia Procedure Notes Filed: 04/22/2023 11:33 AM Note Text: ANESTHESIOLOGY PROCEDURE NOTE Airway General Information Procedure Start Time/Medication Administration: 04/22/2023 11:07 AM Patient location during procedure: OR Timeout Performed Pre-procedure: timeout performed Consent Obtained: Yes Patient identity confirmed: arm band, care field marketing team leader and patient Staffing NEUROLOGICAL SURGERY TEACHER: Christi Loja APRN.NEUROLOGICAL SURGERY TEACHER Performed by: NEUROLOGICAL SURGERY TEACHER Indications and Patient Condition Indications for airway management: anesthesia Preoxygenated: yes anesthesia circuit Patient position: sniffing Method: asleep Difficult Mask: No Final Airway Details Final airway type: endotracheal airway Final Endotracheal Airway: ETT Cuffed: yes Successful intubation technique: direct laryngoscopy Endotracheal tube insertion site: oral Blade: Katie Blade size: #4 ETT size (mm): 7.0 Measured from: teeth Measurement (cm): 21 Placement verified by: chest auscultation and capnometry Cormack-Lehane Classification: grade I - full view of glottis Number of attempts at approach: 1 Failed airway: no Unrecognized esophageal intubation: no Airway not difficult SIGNATURE: Christi Loja APRN.CRNA PATIENT NAME: Kimberly Reis DATE: April 22, 2023 TIME: 11:32 AM CSN: [id number] 04-22-2023 History of Present illness Narrative BREAST HEALTH NURSE POST-OPERATIVE DISCHARGE INSTRUCTIONS Prior to the patient's discharge from the hospital, the breast health nurse initiated post-op education with the patient. Visit made to the surgical area, patient is in surgery. Gift bag left with patient belongings. The patient was given the following: Heart shaped pillow -Yes Meditative book -Yes Support group information -Yes Breast nurse navigator will follow patient while in hospital. Patient will be contacted by phone to evaluate for further educational and emotional support needs. Abby Maciel RN documented in this encounter [facility] 04-22-2023 Note HNO ID: [id number] Author: Roge Vasquez RT(R) Service: ? Author Type: Technologist Type: Progress Notes Filed: 04/22/2023 11:22 AM Note Text: RADIOLOGY SERVICE PROGRESS NOTE SERVICE DATE: 04/22/2023 SERVICE TIME: 11:20 AM PATIENT IDENTITY VERIFICATION COMPLETED USING TWO (2) STANDARD IDENTIFIERS: Name and Date of confirmed by patient verbally and Name and Date of confirmed by identification band FALL SCREENING: Has the patient had 2 falls in the last year or 1 fall with injury or currently using an Ambulatory Assistive Device (Walker, Cane, Wheelchair, Crutches, etc.)? Inpatient: Screened on floor PATIENT GENDER DATA: .female : No ALLERGIES: Reviewed and unchanged MEDICATIONS REVIEWED: No PATIENT RELEVANT IMPLANT DATA REVIEWED: Not Applicable CREATININE: Creatinine Date Value Ref Range Status 04/18/2023 0.97 (H) 0.58 - 0.96 mg/dL Final 10/13/2020 0.64 0.58 - 0.96 mg/dL Final 07/19/2020 0.73 0.58 - 0.96 mg/dL Final Estimated Glomerular Filtration Rate Date Value Ref Range Status 04/18/2023 77 >=60 mL/min/1.73m? Final Comment: Estimated Glomerular Filtration Rate (eGFR) is calculated using the 2020 CKD-EPI creatinine equation. This equation utilizes serum creatinine, sex, and age as parameters. The creatinine assay has traceable calibration to isotope dilution-mass spectrometry. Refer to KDIGO guidelines for clinical interpretation. In patients with unstable renal function, e.g. those with acute kidney injury, the eGFR may not accurately reflect actual GFR. eGFR- Date Value Ref Range Status 10/13/2020 >60 Final P.O.C.T. RESULTS: N/A April 22, [address] PERFORMED: No IV SITE: Right breast retro-areolar injection intra-op POST EXAM PIV STATUS: Not applicable PROCEDURE TYPE: NM INJECT: Right breast sentinel node injection. 487 microcuries Tc99m Lymphoseek. No other medications given.. ADMINISTRATION TIME: 1110 PATIENT DISCHARGED TO: Patient taken to IP transport area for return to RNF/ICU/ED. A Diagnostic radioactive procedure has taken place, with no further precautions necessary other than routine body substance precautions. More information regarding radiation safety can be found using this link: [email or web address] SIGNATURE: RT Sky(R) PATIENT NAME: Kimberly Reis DATE: April 22, 2023 TIME: 11:20 AM PAGER/CONTACT #: 04-22-2023 History of Present illness Narrative RADIOLOGY SERVICE PROGRESS NOTE SERVICE DATE: 04/22/2023 SERVICE TIME: 11:20 AM PATIENT IDENTITY VERIFICATION COMPLETED USING TWO (2) STANDARD IDENTIFIERS: Name and Date of confirmed by patient verbally and Name and Date of confirmed by identification band FALL SCREENING: Has the patient had 2 falls in the last year or 1 fall with injury or currently using an Ambulatory Assistive Device (Walker, Cane, Wheelchair, Crutches, etc.)? Inpatient: Screened on floor PATIENT GENDER DATA: .female : No ALLERGIES: Reviewed and unchanged MEDICATIONS REVIEWED: No PATIENT RELEVANT IMPLANT DATA REVIEWED: Not Applicable CREATININE: Creatinine Date Value Ref Range Status 04/18/2023 0.97 (H) 0.58 - 0.96 mg/dL Final 10/13/2020 0.64 0.58 - 0.96 mg/dL Final 07/19/2020 0.73 0.58 - 0.96 mg/dL Final Estimated Glomerular Filtration Rate Date Value Ref Range Status 04/18/2023 77 >=60 mL/min/1.73m Final Comment: Estimated Glomerular Filtration Rate (eGFR) is calculated using the 2020 CKD-EPI creatinine equation. This equation utilizes serum creatinine, sex, and age as parameters. The creatinine assay has traceable calibration to isotope dilution-mass spectrometry. Refer to KDIGO guidelines for clinical interpretation. In patients with unstable renal function, e.g. those with acute kidney injury, the eGFR may not accurately reflect actual GFR. eGFR- Date Value Ref Range Status 10/13/2020 >60 Final P.O.C.T. RESULTS: N/A April 22, [address] PERFORMED: No IV SITE: Right breast retro-areolar injection intra-op POST EXAM PIV STATUS: Not applicable PROCEDURE TYPE: NM INJECT: Right breast sentinel node injection. 487 microcuries Tc99m Lymphoseek. No other medications given.. ADMINISTRATION TIME: 1110 PATIENT DISCHARGED TO: Patient taken to IP transport area for return to RNF/ICU/ED. A Diagnostic radioactive procedure has taken place, with no further precautions necessary other than routine body substance precautions. More information regarding radiation safety can be found using this link: [email or web address] SIGNATURE: RT Sky(Toy) PATIENT NAME: Kimberly Reis DATE: April 22, 2023 TIME: 11:20 AM PAGER/CONTACT #: documented in this encounter [facility] 04-21-2023 Miscellaneous Notes US showed a LEFT breast 1.3 cm x 1.3 cm x 0.9 cm oval mass in the left breast 9:00, retorareolar has a differential diagnosis of a sebaceous cyst, an oil cyst, or fat necrosis. This is definitely a new palpable finding to the patient and her OB. Given this change and her RIGHT breast DCIS diagnosis - we discussed excision of this area. LEFT breast ultrasound guided mass excision will be added to the consent. Nancy Morel DO Breast Surgeon documented in this encounter [facility] 04-18-2023 Miscellaneous Notes I called pt as she is on the surgery schedule next week. Questions answered. Reassurance given. Kimberly appreciated the call and has my name and number to call with any other questions or concerns. documented in this encounter [facility] 04-18-2023 Note [facility] 04-18-2023 Miscellaneous Notes Spoke with patient in regards to the left palpable mass noted by patient and left breast imaging performed earlier today. The are of concern was benign, with differential diagnosis of sebaceous cyst, oil cyst or fat necrosis. Patient is relieved and will procedure with her surgery as scheduled on 04/24/2023. Baldomero Manzanares PA-C documented in this encounter [facility] 04-16-2023 Note [facility] 04-14-2023 Instructions Dimitris Theodore APRN.LOGISTICS 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 - 04/14/2023 3:56 PM EDT PATIENT PREOPERATIVE INSTRUCTIONS Nancy Morel DO has scheduled you for your procedure at this surgery center: : [phone] --[id number] [id number]. Please check in on the 1st floor at registration desk 6. Please read below carefully for your personalized instructions. Dietary Restrictions: - No solid food after midnight. - You may have 12 ounces of clear liquids (water, clear juices such as apple juice or gatorade, carbonated beverages, clear tea, black coffee, jello) until 2 hours before scheduled arrival at facility. No red/purple coloring and no creamer/sugar Medications: Unless instructed differently below, stay on all of your medications until your surgery. Approved medications to take the morning of surgery with a sip of water: amLODIPine (NORVASC), levothyroxine (SYNTHROID, metoprolol tartrate, (LOPRESSOR), montelukast (SINGULAIR), omeprazole (PRILOSEC) Do not take losartan (COZAAR) the morning and/or evening prior surgery Take half dose of long acting insulin last dose prior to surgery If you start any new medications after today's visit, please contact the surgeon's office. Blood Thinning Medications: - Stop NSAIDS (Ibuprofen, Advil, Aleve, Motrin, Celebrex, Mobic, etc.) 7 days before surgery, as directed by your surgeon. - Stop Vitamin E, ALL multi-vitamins, herbals and dietary supplements 7 days before surgery. - You may take Tylenol (Acetaminophen) or any of your pain medications that do not contain aspirin or NSAIDS as needed. - FOLLOW COUMADIN INSTRUCTIONS GIVEN FROM CARDIOLOGY Important Reminders: - Candy, mints, gum and tobacco products are NOT permitted the morning of surgery. - Hearing aids, dentures and glasses may be worn the morning of surgery. - NO jewelry, body piercings, makeup, hairpins or contacts are to be worn the day of surgery. If you develop symptoms such as a fever, cold, or flu, or have other changes to your health within TWO DAYS of scheduled surgery or the morning of surgery, please contact the surgery center above. Personal Belongings: -Please have photo ID and insurance cards. -If you do not have a copy of advance directives on file with us, please bring a copy with you on the day of surgery. - Leave ALL valuables and money at home or with family members. For Outpatient Procedures: - YOU MUST HAVE A RESPONSIBLE PAD MACHINE FEEDER TAKE YOU HOME. A RUBBER ENGRAVER OR AUDIT TECH CANNOT BE MADE A RESPONSIBLE PAD MACHINE FEEDER. - We recommend that a responsible person stays with you overnight to take care of you. - You cannot stay in a hotel alone after outpatient surgery. You will not be permitted to have your surgery, if you do not have someone to take care of you. Arrival Time for Surgery: - The Surgery Center or hospital where you are having surgery will call the afternoon before surgery (or Friday for Friday surgery) with a scheduled arrival time. - If you have not heard by 4 pm, please contact the surgery center above. Please be aware that emergency situations arise, which may delay or change your surgical time. If this happens, we will notify you as soon as possible and regret any inconvenience. If you already have an Advance Directive, please fax a copy to [phone] or email to for it to be added to your chart. If you do not have an Advance Directive, you can find the appropriate form and more information at [email or web address]. We recommend that you complete the Advance Directive form found on the website and bring it with you the day of your surgery. It can be witnessed and scanned into your chart that day. Dimitris Theodore APRN.GARRISON documented in this encounter [facility] 04-14-2023 History and physical note HISTORY AND PHYSICAL EXAMINATION SERVICE DATE: 04/14/2023 SERVICE TIME: 3:05 PM PRIMARY CARE PHYSICIAN: Jonas Sweet MD REASON FOR VISIT: Kimberly Reis is a 37 year old female who is scheduled for Procedure(s) with comments: MASTECTOMY SIMPLE (Right) - pt to arrive at 7:00 INTRAOPERATIVE ID OF SENTINEL LYMPH NODE(S) INCL'D INJECTION OF NON-RAD DYE WHEN PERFORMED (Right) BIOPSY NODE SENTINEL AXILLARY (Right) - Sent inj scheduled 9:30, for Dr. Morel to do in OR, LYMPHADENECTOMY AXILLARY COMPLETE (Right) INJECTION PROCEDURE RADIOACTIVE TRACER FOR IDENTIFICATION OF SENTINEL NODE (Right) TISSUE CHIROPRACTOR ASSISTANT PLACEMENT IN BREAST RECONSTRUCTION UNILATERAL (Right) IMPLANTATION OF BIOLOGIC IMPLANT FOR SOFT TISSUE REINFORCEMENT (N/A) - Acellular dermal matrix at the request of Dr. Nancy Morel for consultation. My final recommendation will be communicated back to the requesting physician by way of shared medical record or letter. Subjective The patient has the following: ACTIVE PROBLEM LIST Aortic Valve Disorder Aortic Aneurysm (Hcc) Obesity Calculus of Gallbladder Without Mention of Cholecystitis Or Obstruction Other Abnormal Blood Chemistry Impaired Fasting Glucose Esophageal Reflux Nonspecific Abnormal Results of Liver Function Study Rosacea Pain, Acute Postoperative Summary discharge History of Gestational Diabetes Hypothyroid Discharge Planning Issues Obesity, Class I, Bmi 30-34.9 Mechanical Complication Due to Heart Valve Prosthesis Essential Hypertension Encounter for Support and Coordination of Transition of Care Elevated Ldh Prosthetic Aortic Valve Stenosis Diabetes Mellitus Type 2, Controlled, Without Complications (Hcc) Fluid Overload History of Aortic Valve Replacement Mild Intermittent Asthma Without Complication Hypothyroidism On Anticoagulant Therapy Abnormal Uterine Bleeding (Aub) Menorrhagia With Regular Cycle Malignant Neoplasm of Upper-Outer Quadrant of Left Breast in Female, Estrogen Receptor Negative (Hcc) Enlarged Lymph Nodes in Armpit At Risk for Lymphedema Renal Infarct (Hcc) COVID-19 Immunization Status Overdue - COVID-19 VACCINE (3 - Moderna series) Overdue since 2021 09/17/2021 Imm Admin: COVID-19 original vaccine, full dose, monovalent (MODERNA) 08/20/2021 Imm Admin: COVID-19 original vaccine, full dose, monovalent (MODERNA) CHIEF COMPLAINT: Pre-op exam HPI: Kimberly Reis is a 37 year old seen for PAC due to scheduled above surgery because of left breast cancer. 03/13/2023, Dr. Morel SUBJECTIVE: REASON FOR TODAY'S VISIT: Breast Cancer Evaluation HISTORY of PRESENT ILLNESS: Kimberly Reis is a 37 year old White female who presents to the [facility] at the request of Dr. Frank for an opinion regarding a new diagnosis of RIGHT breast cancer. Patient presented with self discovered RIGHT breast mass a few months prior. He states she also noticed intermittent spontaneous bloody nipple discharge found in her bra. She underwent a diagnostic mammogram on 01/09/2023. This showed coarse calcifications in the upper outer quadrant suspicious. A RIGHT breast 1.8 cm nodule, with microcalcifications within it, was noted, in the upper lateral aspect. Subsequently, an ultrasound was performed demonstrating a 9 x 6 x 8 mm suspicious at 10:00, 3 cm FN. 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 In addition, a prominent right axillary node was reported. Lymph node biopsy is scheduled for 03/21/2023. Patient denies any other breast pain, skin changes, breast masses, and nipple discharge. Patient has not had any previous breast concerns, procedures or surgeries. PMH is significant for aorta valve replacement x3 (most recent 2019) d/t congential bicuspid valve (currently on Coumadin), s/p median sternonotomy, IDDM, hypothyroidism, migraines. BMI 36.7 States she had a skin lesion on her back removed recently,with a concern for melanoma, states it was negative, but she is scheduled for removal of additional surgery with Plant Nursery Worker on 04/14/2023. Saw Genetics: results were negative Dr. Garcia (med onc) Dr. Garcia (Rad onc) HISTORY OF BREAST PROCEDURE(S): Excisional biopsy left breast in 2006, which was benign REVIEW OF SYSTEMS: General: No weight loss, malaise or fevers. Neurological: Positive for: headaches (migraines, otc analgesics as needed). Negative for: cerebral palsy, CENTER MACHINE SET UP OPERATOR tumor, dementia, impaired sensorium, multiple sclerosis, Parkinson's disease, peripheral neuropathy, seizures, TIA and strokes. Respiratory: Positive for: asthma (childhood). Negative for: COPD, pneumonia within 6 weeks, tobacco use, URI < 2 weeks and obstructive sleep apnea. Cardiovascular: Positive for: anticoagulation therapy (Coumadin, ASA), congenital heart defect, DVT/PE (renal, tx with AC), hypertension (on rx) and murmur/valvular heart disease (AVR x3, mechanical) Negative for: arrhythmia, atrial fibrillation, CAD, chest pain, CHF, hyperlipidemia, recent [place], open heart surgery and valve surgery. GI: Positive for: GERD (on rx) Negative for: abdominal pain, dysphagia, hepatitis, irritable bowel syndrome, inflammatory bowel disease, liver disease, nausea, pancreatitis, vomiting and ETOH >2 drinks/day. : No history of dysuria, frequency or incontinence, stones or chronic kidney disease. No difficulty urinating, nocturia > 1 time per night or hematuria. DIRECTOR DIVERSITY: Negative for abnormal vaginal bleeding, abnormal vaginal discharge. Endocrine: Positive for: diabetes mellitus and hypothyroidism (on rx). Patient's diabetes mellitus is controlled by insulin and weekly injectable. Hematology: Positive for: chronic anti-coagulation/platelet meds. Patient is on anti-coagulation/platelet medication(s): Aspirin and Coumadin. Negative for: anemia, bruises/bleeds easily and transfusion of at least 4 units within 72 hours prior to surgery. Oncology: See HPI. Psych: No history of psychiatric symptoms or problems. Musculoskeletal: Negative for joint pain or swelling, back pain or muscle pain. Skin: Negative for lesions, rash and itching. PAST MEDICAL HISTORY Diagnosis Date Aortic valve disorders Aortic valve disorders-stenosis Breast cancer (HCC) 01/2023 Diabetes mellitus (HCC) Diffuse cystic mastopathy Hypertension possibly d/t nuvaring Hypothyroid Irregular menstrual cycle Irregular periods Migraine without aura Peripheral vascular disease (HCC) PMH - PAST MEDICAL HISTORY OF glucose intolerance Unspecified asthma(493.90) as child PAST SURGICAL HISTORY Procedure Laterality Date BX OF BREAST; INCISIONAL Right 02/04/2023 DELIVERY ONLY 12/14/08 11/14/10 , low transverse DELIVERY ONLY 04/2013 COLONOSCOPY SCREENING 05/2020 HEART VALVE REPAIR HEART VALVE REPLACEMENT LAPS SURG CHOLECYSTECTOMY W/CHOLANGIOGRAPHY 02/24/2007 LIG/TRNSXJ FLP TUBE ABDL/VAG APPR UNI/BI 04/2013 Tubal ligation PAST SURGICAL HISTORY OF 1991 heart cath for suspected ASD PAST SURGICAL HISTORY OF wisdom teeth PAST SURGICAL HISTORY OF 11/18/2006 aortic valve re: assending aortic anneurysm stent placement PAST SURGICAL HISTORY OF needle breast BX PERIPHERAL VASCULAR INTERVENTION PRQ BALLOON VALVULOPLASTY AORTIC VALVE 1992 SHX AORTIC VALVE REPLACEMENT 06/2020 mechanical On-X TONSILLECTOMY HX FAMILY HISTORY Problem Relation Age of Onset Thyroid Mother Assending aortic anneurysm Hypertension Mother Aortic valve replacement Diabetes Mother Diabetes Father Hypertension Father Lipids Father Multiple Sclerosis Sister 30 Hypertension Brother Heart Maternal Grandmother a fib Emphysema Maternal Grandmother Dementia Maternal Grandmother Osteoporosis Maternal Grandfather Prostate Cancer Maternal Grandfather Arthritis Maternal Grandfather No Known Problems Paternal Grandmother Diabetes Paternal Grandfather Breast Cancer Maternal Aunt at age 47 Auto-Immune Disorder Maternal Aunt Lupus Cancer Paternal Uncle bile duct Social History Tobacco Use Smoking status: Never Smokeless tobacco: Never Vaping Use Vaping Use: Never used Substance Use Topics Alcohol use: No Drug use: Never Prior to Admission medications as of 04/14/23 1550 Medication Sig Last Dose Taking econazole nitrate (ECONAZOLE TOPICAL) Apply to affected area. Taking Yes OZEMPIC 1 mg/dose (4 mg/3 mL) pen 2 mg. Taking Yes amLODIPine (NORVASC) 10 mg tablet Take 10 mg by mouth once daily. Taking Yes amoxicillin (AMOXIL) 500 mg capsule 500 mg. Pre dental work Taking Yes BASAGLAR KWIKPEN U-100 INSULIN 100 unit/mL (3 mL) Inject 34 Units subcutaneously daily at bedtime. Taking Yes losartan (COZAAR) 25 mg tablet Take 100 mg by mouth once daily. Taking Yes warfarin (COUMADIN) 5 mg tablet Take 2 tablets by mouth daily as directed. Patient taking differently: Take 11 mg by mouth once daily. Taking Yes metoprolol succinate ER (TOPROL XL) 100 mg Take 100 mg by mouth once daily. Taking Yes montelukast (SINGULAIR) 10 mg tablet Take 10 mg by mouth daily at bedtime. Taking Yes omeprazole magnesium (PRILOSEC ORAL) Take 40 mg by mouth once daily. Taking Yes aspirin 81 mg chewable tablet Take 1 tablet by mouth once daily. Taking Yes Levothyroxine 100 mcg cap Take 100 mcg by mouth once daily. Taking Yes Medication Comments documented by Cheri Tompkins LPN on 12/16/2011 at 1058. ALLERGIES Allergen Reactions Adhesive Tape (Noy* tears skin Sulfa (Sulfonamide * Hives Objective PHYSICAL EXAM: General: alert and oriented (x3), healthy appearance and obese. Pertinent negatives noted - not distressed. Skin: normal color, no rash or lesions. HEENT: EOM intact and pupils equal round. Pertinent negatives noted - no carotid bruit. Cardiovascular: Pulse characterized as regular.Positive for murmur. Respiratory: normal breath sounds, no wheezes or crackles. No chest wall deformity or tenderness. Abdomen: soft. Pertinent negatives noted - not tender. Extremities: no deformity, no edema or tenderness, no joint swelling or clubbing. Neurological: normal cognition and motor skills. Gait normal. No weakness or sensory deficit. PAIN ASSESSMENT: Pain Pain Level: 1 Pain Location: Breast-Right Description: Burning Duration Amount of Time: 6 Duration Units: Weeks Frequency: Intermittent VITALS: BP 142/90 Pulse 78 Temp (Src) 98.1 (Temporal) Ht 5' 7 (1.70m) Wt 222 lb (100.7kg) SpO2 98% LMP 09/29/2020 BMI 34.76 kg/(m^2). Diagnostic tests reviewed for today's visit: Lab Value Units Date High Low HB No results within date range. HCT No results within date range. WBC No results within date range. PLT No results within date range. NA No results within date range. K No results within date range. GLUC No results within date range. BUN No results within date range. CREAT No results within date range. PTSEC No results within date range. INR No results within date range. APTT No results within date range. ALT No results within date range. AST No results within date range. TBILI No results within date range. TSH No results within date range. Lab Value Units Date High Low HCGQT No results within date range. UHCG No results within date range. HCG, BODY* No results within date range. Lab Value Units Date High Low ABORHD No results within date range. ABSCREEN No results within date range. Hemoglobin A1C (%) Date Value 08/16/2020 6.1 06/14/2020 5.6 11/06/2006 5.0 No results found for this or any previous visit (from the past 8760 hour(s)). Recent Results (from the past 49954 hour(s)) ECHO Collection Time: 06/14/20 2:31 PM Impression CONCLUSIONS: - Exam indication: Aortic valve redo - The left ventricle is normal in size. Left ventricular systolic function is normal. EF = 55 5% (2D biplane) - The right ventricle is normal in size. Right ventricular systolic function is normal. - Trifecta prosthetic aortic valve (size #23). There is mild (1+) aortic valve regurgitation. There is severe aortic valve stenosis caused by prosthetic thickening/calcification. AV area is 0.97 cm (0.45 cm /m ) by continuity, VTI. Marked thickening of the bioprosthesis cusps. The peak gradient is 116 mmHg, the mean gradient is 70 mmHg and the dimensionless valve index is 0.23. - Exam was compared with the prior echocardiographic exam performed on 05/26/2013. Severe aortic bioprosthetic valve stenosis on today's examination. * * * Final * * * Assessment Patient has the following medical conditions which may affect hortencia-operative course: History of aortic valve replacement Assessment: 2/2 congential stenosis, s/p x3 sternotomy, last replacement was mechanical valve 2019, daily Coumadin, pt received pre-op Coumadin/Lovenox Bridging instructions give from power grader operator office 08/29/2022 Dr. Burgess Impression: Kimberly is a 36 year old woman with a history of bicuspid aortic valve with ascending aorta dilation. She had replacement of the ascending aorta and aortic valve with a homograft tissue valve. 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 She had a valve replacement with another tissue valve - a 23 mm Trifecta valve - in May 2013. She developed recurrent aortic stenosis. She had replacement of her aortic valve with a mechanical prosthesis - On-X valve - in June 2020. She has done well. Her valve is functioning appropriately. She has had documented normal cardiac function. She is without cardiac symptoms other than her edema which is by history related to her Amlodipine and gravity. Plan/Recommendations: No new restrictions or special precautions are required. Activity as tolerated INR checks as directed. Antibiotics are required prior to dental appointments. Limit salt intake, elevate legs when possible, wear tight fitting socks Continue current medications Follow up in 1 year Patient and family are aware of and comply with SBE prophylaxis. Counseling and/or coordination of care (face to face time in the office/outpatient setting or floor/unit time in hospital) was greater than 20 minutes which is more than 50% of the total time of 30 minutes spent on the encounter. Arvin Burgess M.D. SUMMARY: 1. S/P aortic valve replacement and replacement of ascending aorta due to bicuspid aortic valve and ascending aorta dilation. 2. Post re-do aortic valve replacement (05/2013) Tissue valve 3. Post re-do aortic valve replacement (06/19/2020) with On-X mechanical valve prosthesis. 4. Appropriate mechanical valve function; Doppler vmax 2.31 m/s, peak gradient 21 mm Hg, mean gradient 13 mm Hg. 5. No aortic regurgitation 6. Probably mild left ventricular hypertrophy. 7. Normal left ventricular systolic function. 08/29/2022 10:59 AM Aortic aneurysm (HCC) Assessment: stenting completed to thoracic aneurysm 2007 Diabetes mellitus type 2, controlled, without complications (HCC) Assessment: IDDM and weekly injectable Recent A1c completed at PCP's office, record requested Hypothyroidism Assessment: stable on rx ESOPHAGEAL REFLUX Assessment: controlled on rx Obesity, Class I, BMI 30-34.9 Assessment: Body mass index is 34.77 kg/m . Essential hypertension Assessment: controlled on rx Last 14 BP Last 14 Encounter BP Readings: Date: BP: 04/14/2023 142/90 02/19/2023 172/77 02/19/2023 122/64 01/20/2023 130/72 12/28/2020 134/73 12/15/2020 151/77 12/01/2020 148/60 10/19/2020 139/84 10/13/2020 140/70 10/13/2020 156/82[patient did take Bp meds but she is anxious[ 08/16/2020 132/84 07/27/2020 154/72 07/19/2020 133/65 07/04/2020 117/70 Renal infarct (HCC) Assessment: presumed embolic per epic documentation found, daily Coumadin and ASA, received bridging instructions from cardiology 08/29/2022 Dr. Burgess This is presumed related to her mechanical aortic valve in the setting of recent Covid infection and due to reduced anticoagulation in the setting of surgical bleeding. Based on this episode I have elected to try to maintain her anticoagulation in the 2-2.5 range rather than the 1.5-2 range. She is also on an additional low-dose aspirin. Mccracken Activity Status Index: METS: Climb a flight of stairs or walk up a hill (5.50 METs) DASI Score: 5.5 Patient denies any chest pain or undue shortness of breath with the above physical activity. Clinical Frailty Scale: 3. Well, with treated comorbid disease STOP-Bang Score: Snores loudly Has or is being treated for high blood pressure Denies feeling tired, fatigued, or sleepy during the daytime Has not been observed to stop breathing or choking/gasping during sleep BMI less than or equal to 35 kg/m^2 Patient 50 years old or younger Does not have a large neck Non-male patient STOP-Bang Score: 2 [id number] Score: Age: <65 Sex: female CHF history: No Hypertension history: Yes Stroke/TIA/thromboembolism history: Yes Vascular disease history: No Diabetes history: Yes [id number] Score: 5 ARISCAT Score: Age: <=50 Preoperative SpO2: >=96% Respiratory infection in the last month: No Preoperative anemia: Yes Surgical incision: peripheral Duration of surgery: >3 hrs Emergency procedure: No ARISCAT Score: 34 ASA Class: 3 ANESTHESIA FINDINGS: Intubation History: No history of difficult intubation Significant Anesthesia Considerations: none Airway History: No history of difficult airway I - PHYSICAL EVALUATION AIRWAY Patient intubated: No. Tracheostomy tube not present Mallampati: III. TM distance: >3 FB. Neck ROM: full ROM without neurological symptoms. Mouth opening: adequate. Short neck: no. Thick neck: no Williamson present: no Lip Bite Test: II Microretrognathia/Micronagthia/Rec essed Chin: No DENTAL Dental findings: teeth intact. II - ANESTHESIA PLAN ASA Score: 3 Anesthetic Plan: other Anesthetic plan additional comments: *PACC/TCI - anesthesia choice. Beta Beatriz Monitoring Plan Post Procedure Analgesic Plan Informed Consent Anesthetic risks, benefits, alternatives, personnel and consent discussed: yes. Patient / Responsible Republican agrees to proceed: yes Patient / Surrogate agrees to blood products: blood products not planned Discussed the possibility of lip / dental damage: yes Prepared for Surgery: optimally prepared for surgery, pending [see comment]. labs CONSULTS: Patient does not require consults for optimization at this time Planned Anesthetic: other anesthesia choice The Following Tests/Procedures Have Been Initiated: Orders Placed This Encounter >CBC + AUTO DIFF Standing Status: Future Standing Expiration Date: 06/14/2023 >CMP Standing Status: Future Standing Expiration Date: 06/14/2023 econazole nitrate (ECONAZOLE TOPICAL) Sig: Apply to affected area. Instructions Given to Patient: Instructions located in the after visit summary. Patient given verbal and written preop instructions and voices comprehension and compliance. SIGNATURE: Dimitris Theodore APRN.CNP PATIENT NAME: Kimberly Reis DATE: April 14, 2023 TIME: 3:50 PM PAGER/CONTACT #: documented in this encounter [facility] 04-10-2023 Nurse Note AMBULATORY PATIENT EDUCATION NOTE TOPIC: RIGHT mastectomy with SN bx and reconstruction (TE) READINESS TO LEARN COGNITIVE ABILITY: Alert and oriented MOTIVATION TO LEARN: Interested FAMILY SUPPORT: Low - Inconsistent family involvement INSTRUCTION PROVIDED TO: Patient PATIENT LEARNS BEST BY: Multiple Methods FACTORS AFFECTING LEARNING: None PHYSICAL LIMITATIONS AFFECTING LEARNING: None LEARNING RESPONSE DIAGNOSIS: C50.412 METHOD OF INSTRUCTION: Individual instruction Written instruction - handouts Verbal instruction PATIENT / FAMILY RESPONSE: Verbalizes understanding of: DRAIN CARE- Correct procedure to perform drain care INFECTION MANAGEMENT-Signs and symptoms of an infection and importance of contacting the physician MEDICATION PRESCRIBED-Accurate knowledge of prescribed medication prior to discharge MEDICATION ROUTE-Correct route for administration of the prescribed medication MEDICATION SIDE EFFECTS-Side effects associated with the medication that warrant a call to the physician PAIN MANAGEMENT-Effective strategies to manage pain in addition to pain medication PHYSICAL RESTRICTIONS-Physical restrictions and recommendations after discharge from the hospital POST-OPERATIVE INSTRUCTIONS-Correct actions to take to reduce postoperative complications PRE-OPERATIVE INSTRUCTIONS-Correct action to take to follow pre-operative instructions PATIENT SAFETY PRINCIPLES SYMPTOM MANAGEMENT-Correct actions to take to manage symptoms associated with his/her disease/illness VTE prevention measures WORSENING CONDITION-Signs and symptoms of a worsening condition that warrant a call to the physician WOUND CARE-Correct procedure to perform wound care Per [facility] guidelines the patient was given the Hibiclens liquid, and was given written instructions which include instructions to not use on the face or near the eyes or genital area. The instructions were reviewed with the patient verbalized understanding the instructions. FOLLOW-UP PLAN: Patient instructed to call with any further issues SUPPLEMENTAL MATERIAL: Your Surgical Guide REFERRAL (RECOMMENDATION): None Electronically Signed By: Lottie Posey LPN In Department: [facility] Time spent on patient education: 20 minutes. documented in this encounter [facility] 03-27-2023 Note [facility] 03-27-2023 History of Present illness Narrative CC: Discuss reconstruction following Right breast mastectomy on 04/22/2023. HPI: Kimberly Reis is a 37 year old female who presents to follow up for breast reconstruction evaluation. Hx of Right breast cancer. Surgery with for Right breast mastectomy scheduled for 04/22/2023. Discuss reconstruction with Dr. Ceron. - She wants to go down the implant route of reconstruction - Patient was accompanied by family member Lymph node biopsy 03/17/2023: IMPRESSION: BENIGN FINDING There is no sonographic evidence of malignancy. Multiple morphologically normal lymph nodes in the right axilla. No suspicious right axillary lymphadenopathy is identified. On further review, the lymph node identified on the MRI is not significantly changed compared to the prior chest CT dated 03/12/2020. SUMMARY: Continued surgical consultation for the biopsy-proven cancer in the right breast is recommended. Bilateral Breast MRI 03/06/2023 IMPRESSION: KNOWN BIOPSY PROVEN MALIGNANCY Left [id number] 1 Negative. No evidence of malignancy by MRI criteria. Right [id number]-YS-[id number] 6 Biopsy-proven cancer in the upper outer quadrant extends from the middle depth to the right nipple. Nipple involvement cannot be excluded. This correlates with the regional pleomorphic calcifications identifed on mammogram. If patient is a candidate for conservation, additional biopsies will be necessaary to define extent of disease. HISTORIES PAST MEDICAL HISTORY Diagnosis Date Aortic valve disorders Aortic valve disorders-stenosis Breast cancer (HCC) 01/2023 Diabetes mellitus (HCC) Diffuse cystic mastopathy Hypertension possibly d/t nuvaring Hypothyroid Irregular menstrual cycle Irregular periods Migraine without aura Peripheral vascular disease (HCC) PMH - PAST MEDICAL HISTORY OF glucose intolerance Unspecified asthma(493.90) as child PAST SURGICAL HISTORY Procedure Laterality Date BX OF BREAST; INCISIONAL Right 02/04/2023 DELIVERY ONLY 12/14/08 11/14/10 , low transverse DELIVERY ONLY 04/2013 COLONOSCOPY SCREENING 05/2020 HEART VALVE REPAIR HEART VALVE REPLACEMENT LAPS SURG CHOLECYSTECTOMY W/CHOLANGIOGRAPHY 02/24/2007 LIG/TRNSXJ FLP TUBE ABDL/VAG APPR UNI/BI 04/2013 Tubal ligation PAST SURGICAL HISTORY OF 1991 heart cath for suspected ASD PAST SURGICAL HISTORY OF wisdom teeth PAST SURGICAL HISTORY OF 11/18/2006 aortic valve re: assending aortic anneurysm stent placement PAST SURGICAL HISTORY OF needle breast BX PERIPHERAL VASCULAR INTERVENTION PRQ BALLOON VALVULOPLASTY AORTIC VALVE 1993 SHX AORTIC VALVE REPLACEMENT 06/2020 mechanical On-X TONSILLECTOMY HX OZEMPIC 1 mg/dose (4 mg/3 mL) pen amLODIPine (NORVASC) 10 mg tablet Take 10 mg by mouth once daily. amoxicillin (AMOXIL) 500 mg capsule 500 mg. Pre dental work BASAGLSALVATORE HORTA U-100 INSULIN 100 unit/mL (3 mL) Inject 34 Units subcutaneously daily at bedtime. losartan (COZAAR) 25 mg tablet Take 100 mg by mouth once daily. warfarin (COUMADIN) 5 mg tablet Take 2 tablets by mouth daily as directed. (Patient taking differently: Take 7 mg by mouth once daily. 12mg Sun, , Th and Sat , Fri, Fri 11mg) metoprolol succinate ER (TOPROL XL) 100 mg Take 100 mg by mouth once daily. montelukast (SINGULAIR) 10 mg tablet Take 10 mg by mouth daily at bedtime. omeprazole magnesium (PRILOSEC ORAL) Take 40 mg by mouth once daily. aspirin 81 mg chewable tablet Take 1 tablet by mouth once daily. Levothyroxine 100 mcg cap Take 100 mcg by mouth once daily. Allergies: ALLERGIES Allergen Reactions Adhesive Tape (Noy* tears skin Sulfa (Sulfonamide * Hives FAMILY HISTORY Problem Relation Age of Onset Thyroid Mother Assending aortic anneurysm Hypertension Mother Aortic valve replacement Diabetes Mother Diabetes Father Hypertension Father Lipids Father Multiple Sclerosis Sister 30 Hypertension Brother Heart Maternal Grandmother a fib Emphysema Maternal Grandmother Dementia Maternal Grandmother Osteoporosis Maternal Grandfather Prostate Cancer Maternal Grandfather Arthritis Maternal Grandfather No Known Problems Paternal Grandmother Diabetes Paternal Grandfather Breast Cancer Maternal Aunt at age 47 Auto-Immune Disorder Maternal Aunt Lupus Cancer Paternal Uncle bile duct Social History Tobacco Use Smoking status: Never Smokeless tobacco: Never Vaping Use Vaping Use: Never used Substance Use Topics Alcohol use: No Drug use: Never REVIEW OF SYSTEMS As above General: No weight loss, fever, chills, malaise Cardiac: No CP, palpitations, or leg swelling Respiratory: No cough or SOB GI: No N/V or diarrhea, no blood in stool : No burning or frequency with urination, no blood in urine All other reviewed and negative other than HPI. PHYSICAL EXAM: LMP 09/29/2020 GEN: Well appearing, alert, in no acute distress, well-hydrated, well nourished. BREAST: see RADHA Photo was taken of: Verbal consent was obtained from patient/authorized representation or reason it was not obtained: Yes Photo uploaded into [employer]. A/P: - Discussed that saline filled silicone implants have higher risk for rupture and more disadvantages than silicone filled silicone implants - Manager Of Applications Development (possible DTI) to start (500-600cc) then implant at later date - Discussed risks to implant/die forger procedure - Will use AlloDerm in reconstruction - Not conserving nipple - Will have 2 drains post-surgery - Patient consented to right breast reconstruction with tissue die forger (possible direct to implant) and AlloDerm (ADM) The patient is seen and examined by Dr. Ceron and the following reflects his service. Scribed by Kusum Adamson By signing my name below, I, Kusum Adamson, attest that this documentation has been prepared under the direction and in the presence of Dr. Ceron Electronically signed, Kim Pollock March 27, 2023 5:13 PM I agree with the Chief Complaint, ROS, and Past Histories independently gathered by the clinical sales support manager and the remaining scribed note accurately describes my personal service to the patient. 30 Minutes total visit spent face to face with patient. Greater than 50% of the time was spent for counseling and coordination of care, discussing treatment options and recommendations. Provider Attestation: I, María Ceron MD, personally performed the services described in this documentation. All medical record entries made by the scribe were at my direction and in my presence. I have reviewed the chart and discharge instructions (if applicable) and agree that the record reflects my personal performance and is accurate and complete. Dr. María Ceron MD March 27, 2023 6:52 PM documented in this encounter [facility] 03-21-2023 Miscellaneous Notes Spoke to patient,confirmed her surgery date and appointments related to her procedure with Dr. Morel on 04/22 . Cardiac clearance scheduled and case message sent for her sentinel injection . documented in this encounter [facility] 03-17-2023 Miscellaneous Notes Spoke with patient who would like to proceed with Right mastectomy with SN bx and reconstruction (TE/Implant) with both Dr. Morel and . She would like to wait until after her sons birthday on 04/21/2023. Tentative date of 04/22/2023 is agreed upon and surgeons (and schedulers) will be notified. Baldomero Manzanares PA-C documented in this encounter [facility] 03-17-2023 Note [facility] 03-13-2023 Note HNO ID: [id number] Author: Sadia George LPN Service: ? Author Type: ? Type: Progress Notes Filed: 03/13/2023 12:39 PM Note Text: DATE OF PHOTOS: 03/13/2023 Body Part: Breasts Sadia George LPN March 13, 2023 12:39 PM [facility] 03-13-2023 Note [facility] 03-13-2023 History of Present illness Narrative DATE OF PHOTOS: 03/13/2023 Body Part: Breasts Sadia George LPN March 13, 2023 12:39 PM documented in this encounter [facility] 03-13-2023 History of Present illness Narrative Images from the original note were not included. BREAST RECONSTRUCTION EVALUATION CC: Kimberly Reis is a 37 year old that presents today for breast reconstruction evaluation. HPI: Kimberly Reis is a 37 year old with a history of right breast cancer. She will be having a biopsy of a lymph node 03/21. She is unsure of her surgical plan, will be determined. Prior breast procedures: Left breast excisional biopsy Radiation Therapy: Unsure Chemotherapy: Unsure PAIN : No: 0 on a scale of 0 to 10 Bra Size: C Desired Bra Size: Would like to stay around the same size if she decides to have implant reconstruction OB HISTORY: Para: 3 : Patient did breastfeed Plan for future pregnancies: No HISTORY OF BREAST DISEASE: No patient history of previous breast disease IMAGING TO DATE: UNILATERAL RIGHT DIGITAL DIAGNOSTIC MAMMOGRAM WITH CAD: 02/04/2023 HISTORY: Abnormal Mammogram/post biopsy clip placement right/prior mammograms done at [facility]/images being pushed. RESULT: TECHNIQUE: The study was acquired using full field digital technology and interpreted from soft copy. Current study was also evaluated with a Computer Aided Detection (CAD). No prior exams were available for comparison. The tissue of right breast is heterogeneously dense. This may lower the sensitivity of mammography. There is a marker clip in the appropriate position in the right breast superior lateral quadrant middle depth. There is a biopsy clip associated with the calcifications. IMPRESSION: POST PROCEDURE MAMMOGRAM FOR MARKER PLACEMENT There was a successful marker clip placement in the right breast superior lateral quadrant middle depth. Petra Del Rosario M.D BREAST MRI OF BOTH BREASTS: 03/05/2023 HISTORY: 37-year-old female who had an ultrasound-guided core needle biopsy in her surgeon's office 02-04-23. Pathology results indicate high-grade ductal carcinoma in situ with focus suspicious for stromal invasion. MRI to evaluate for extent of disease. FINDINGS: The tissue of both breasts is heterogeneously fibroglandular tissue. Bilateral background breast enhancement is mild. Left breast: There is no suspicious mass or enhancement in the left breast. No left axillary lymphadenopathy. The internal mammary chain is obscured by artifact related to median sternotomy wires. Right breast: There are multiple enhancing masses/nonmass enhancement in the upper outer quadrant extending from the nipple to the middle depth. The 2 largest masses each measure 1.1 x 1.1 cm and 1.8 x 1.4 cm (seen best in Agfa on series 7, image 65). The entire area enhances in a heterogeneous pattern and measures at least 4.7 cm (AP) by 2.6 (transverse) by 3.6 (craniocaudal) centimeters. The enhancement extends up to, and may extend into the right nipple, seen best in Agfa on series 7, image 41. There is artifact related to the coil biopsy clip in the center of the enhancement. This is the biopsy-proven cancer, and closely approximates the regional pleomorphic calcifications identified in the upper outer quadrant on mammogram performed 01-09-23. This area also abuts the skin, although no suspicious dermal enhancement identfied, seen best on series 7, image 58. No other suspicious mass or enhancement in the right breast. There is a 1.0 cm level I right axillary lymph node, seen best on series 3, image 100. No discrete fatty hilum identified. There are other normal nodes in the right axilla with preserved alvin and normal cortices. The internal mammary chain is obscured by artifact related to median sternotomy wires. IMPRESSION: KNOWN BIOPSY PROVEN MALIGNANCY Left vequvi-NO-VQZP 1 Negative. No evidence of malignancy by MRI criteria. Right [id number]-MI-[id number] 6 Biopsy-proven cancer in the upper outer quadrant extends from the middle depth to the right nipple. Nipple involvement cannot be excluded. This correlates with the regional pleomorphic calcifications identifed on mammogram. If patient is a candidate for conservation, additional biopsies will be necessaary to define extent of disease. Prominent right axillary lymph node. If clinically indicated, ultrasound could be performed to further evaluate, particularly considering the patient has pathology suspicious for stromal invasion. This patient is followed by Drs. Frank, Jose, and Adriel. PATHOLOGY RESULTS: 02/04/2023 FINAL DIAGNOSIS A. 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 - Focus suspicious for stromal invasion. GZ/JVA 02/05/2023 Diagnosis Comment A multiplex immunostain for ADH5 was used in the evaluation of this material. The p63 and CK5/14 components highlight an intact myoepithelial cell layer while the luminal epithelium of interest has expression of only CK7/18, supporting the diagnosis of ductal carcinoma in situ. Rare scattered tumor cells are present in the stroma without myoepithelial lining, suspicious for stromal invasion. This case has been reviewed at the breast pathology consensus meeting with Laney Jackson and Joanna with concurrence. Breast Biomarkers - ER DCIS RESULTS: Estrogen Receptor (ER) Negative <1% Stain intensity: not applicable FAMILY HISTORY OF BREAST CANCER: Yes: maternal aunt PMH: PAST MEDICAL HISTORY Diagnosis Date Aortic valve disorders Aortic valve disorders-stenosis Breast cancer (HCC) 01/2023 Diabetes mellitus (HCC) Diffuse cystic mastopathy Hypertension possibly d/t nuvaring Hypothyroid Irregular menstrual cycle Irregular periods Migraine without aura Peripheral vascular disease (HCC) PMH - PAST MEDICAL HISTORY OF glucose intolerance Unspecified asthma(493.90) as child PSH: PAST SURGICAL HISTORY Procedure Laterality Date BX OF BREAST; INCISIONAL Right 02/04/2023 DELIVERY ONLY 12/14/08 11/14/10 , low transverse DELIVERY ONLY 04/2013 COLONOSCOPY SCREENING 05/2020 HEART VALVE REPAIR HEART VALVE REPLACEMENT LAPS SURG CHOLECYSTECTOMY W/CHOLANGIOGRAPHY 02/24/2007 LIG/TRNSXJ FLP TUBE ABDL/VAG APPR UNI/BI 04/2013 Tubal ligation PAST SURGICAL HISTORY OF 1991 heart cath for suspected ASD PAST SURGICAL HISTORY OF wisdom teeth PAST SURGICAL HISTORY OF 11/18/2006 aortic valve re: assending aortic anneurysm stent placement PAST SURGICAL HISTORY OF needle breast BX PERIPHERAL VASCULAR INTERVENTION PRQ BALLOON VALVULOPLASTY AORTIC VALVE 1992 SHX AORTIC VALVE REPLACEMENT 06/2020 mechanical On-X TONSILLECTOMY HX ROS: PAIN ASSESSMENT: Negative for pain, history of chronic pain, or current treatment for a chronic pain condition. GENERAL: No weight loss, malaise or fevers RESPIRATORY: Negative for cough, hemoptysis, wheezing, COPD, dyspnea or shortness of breath CARDIOVASCULAR: HTN, palpitations, valve replacement and AAA HEMATOLOGY/LYMPHOLOGY: Right kidney infarct following hysterectomy ENDOCRINE: DM last A1C was 5.2 per patient NEURO: Migraine headaches She is on coumadin, Aortic valve replacement, has mechanical valve She has hx AAA MEDS: Current Outpatient Medications on File Prior to Visit Medication Sig amLODIPine (NORVASC) 10 mg tablet Take 10 mg by mouth once daily. amoxicillin (AMOXIL) 500 mg capsule 500 mg. Pre dental work KARENAGLSALVATORE HORTA U-100 INSULIN 100 unit/mL (3 mL) Inject 44 Units subcutaneously daily at bedtime. losartan (COZAAR) 25 mg tablet Take 100 mg by mouth once daily. warfarin (COUMADIN) 5 mg tablet Take 2 tablets by mouth daily as directed. (Patient taking differently: Take 7 mg by mouth once daily. 12mg Sun, Tues, Thurs and Fri , Mon, Wed Fri 11mg) metoprolol succinate ER (TOPROL XL) 100 mg Take 100 mg by mouth once daily. montelukast (SINGULAIR) 10 mg tablet Take 10 mg by mouth daily at bedtime. omeprazole magnesium (PRILOSEC ORAL) Take 40 mg by mouth once daily. aspirin 81 mg chewable tablet Take 1 tablet by mouth once daily. Levothyroxine 100 mcg cap Take 100 mcg by mouth once daily. No current facility-administered medications on file prior to visit. 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 Back Exam: no scar; latissimus dorsi muscle function appears to be intact Abdominal Exam: soft, non-tender, 4+ panniculus , BS+, non-distended, laparoscopic scars Breast Exam: Asymmetry: Minimal Masses: no Axillary Lymphadenopathy: no Scars: midline scar, R upper chest 6 cm scar Note: measurements are in centimeters SN to NIPPLE: R: 29 L: 29 WIDTH: R: 18 L: 17 MIDLINE to NIPPLE: R: 13 L: 14.5 IMF to NIPPLE: R: 8 L: 9 PTOSIS: R: Grade III L: Grade III MEDIALLY DISPLACED NIPPLE: None Appoximate Implant Size: ultimately probably 600 cc Type of Implant: N/A Assessment: The patient is a adequate candidate for Right breast reconstruction with mastectomy or a R breast reconstruction with lumpectomy with oncoplastic reduction. She is considering her options and has not chosen due to waiting on hearing from Dr. Morel. Photographs have been taken and will be sent to the insurance company as necessary. Plan: Planned procedure: I have discussed the procedure in detail with the patient and patient's spouse and she has not yet agreed to the procedure because we are waiting to hear from Dr. Morel. The patient understands the roles and tasks of the personnel to be involved and the alternatives to the procedure. She understands the risks to include but not be limited to infection, bleeding, pain, scar, need for re-operation, recurrence, asymmetry, loss of nipple, loss of nipple height, nipple sensation change, skin necrosis and anesthetic/perioperative complications including DVT and . The patient agrees and has not yet consented to the procedure attesting to her understanding. Follow up when she decides what she would like to move forward with. This visit lasted for more than 60 minutes and greater than 50% of the visit was involved in the discussion of the options for treatment. This plan will be coordinated with Dr. Morel The patient was seen with Lottie Mendoza RN who performed the Review of Systems and Past/Family/Social History. I have reviewed these and agree with her findings. The History and Physical as taken by me are documented above and/or dictated below. María Ceron MD ATTESTATION: By signing my name below, IAlisa, attest that this documentation has been prepared under the direction and in the presence of Dr. Ceron. Electronically signed, Kim Yeager March 13, 2023 1:26 PM Provider Attestation: María Matthews MD, personally performed the services described in this documentation. All medical record entries made by the scribe were at my direction and in my presence. I have reviewed the chart and discharge instructions (if applicable) and agree that the record reflects my personal performance and is accurate and complete. Dr. María Ceron MD March 13, 2023 3:14 PM documented in this encounter [facility] 03-13-2023 Note [facility] 03-13-2023 Nurse Note Patient was referred by: Did patient bring outside records to appt today? : Films: Sent in by other facility Reports: Sent in by other facility Last mammogram on: 01/09/2023 bilateral Results: see report Patient current bra size: 40C Coping: It is normal to feel some distress when you have cancer. On a scale of 0-10 please indicate the number that best describes your level of distress on the average over the past week. 03/24 Referred to social work: No Is the patient active on [employer] Yes Electronically Signed By: Lottie Posey LPN In Department: [facility] REVIEW OF PATIENT HISTORY: OB History T1 L3 SAB1 IAB0 Ectopic0 Multiple0 Live Births2 FAMILY HISTORY Problem Relation Age of Onset Thyroid Mother Assending aortic anneurysm Hypertension Mother Aortic valve replacement Diabetes Mother Diabetes Father Hypertension Father Lipids Father Multiple Sclerosis Sister 30 Hypertension Brother Heart Maternal Grandmother a fib Emphysema Maternal Grandmother Dementia Maternal Grandmother Osteoporosis Maternal Grandfather Prostate Cancer Maternal Grandfather Arthritis Maternal Grandfather No Known Problems Paternal Grandmother Diabetes Paternal Grandfather Breast Cancer Maternal Aunt at age 47 Auto-Immune Disorder Maternal Aunt Lupus Cancer Paternal Uncle bile duct PAST MEDICAL HISTORY Diagnosis Date Aortic valve disorders Aortic valve disorders-stenosis Diabetes mellitus (HCC) Diffuse cystic mastopathy Hypertension possibly d/t nuvaring Hypothyroid Irregular menstrual cycle Irregular periods Migraine without aura Peripheral vascular disease (HCC) PMH - PAST MEDICAL HISTORY OF glucose intolerance Unspecified asthma(493.90) as child PAST SURGICAL HISTORY Procedure Laterality Date BX OF BREAST; INCISIONAL Right 02/04/2023 DELIVERY ONLY 12/14/08 11/14/10 , low transverse DELIVERY ONLY 04/2013 COLONOSCOPY SCREENING 05/2020 HEART VALVE REPAIR HEART VALVE REPLACEMENT LAPS SURG CHOLECYSTECTOMY W/CHOLANGIOGRAPHY 02/24/2007 LIG/TRNSXJ FLP TUBE ABDL/VAG APPR UNI/BI 04/2013 Tubal ligation PAST SURGICAL HISTORY OF 1991 heart cath for suspected ASD PAST SURGICAL HISTORY OF wisdom teeth PAST SURGICAL HISTORY OF 11/18/2006 aortic valve re: assending aortic anneurysm stent placement PAST SURGICAL HISTORY OF needle breast BX PERIPHERAL VASCULAR INTERVENTION PRQ BALLOON VALVULOPLASTY AORTIC VALVE 1993 SHX AORTIC VALVE REPLACEMENT 06/2020 mechanical On-X TONSILLECTOMY HX Social History Tobacco Use Smoking status: Never Smokeless tobacco: Never Vaping Use Vaping Use: Never used Substance Use Topics Alcohol use: No Drug use: Never documented in this encounter [facility] 03-13-2023 History of Present illness Narrative NEW BREAST CANCER - INITIAL SURGICAL VISIT SERVICE DATE: 03/06/2023 REFERRING PROVIDER: Dr. Frank Consult requested for an opinion regarding the evaluation and treatment of breast cancer. My final impression and recommendations will be communicated back to the requesting physician by way of the shared medical record or letter via US mail. SUBJECTIVE: REASON FOR TODAY'S VISIT: Breast Cancer Evaluation HISTORY of PRESENT ILLNESS: Kimberly Reis is a 37 year old White female who presents to the [facility] at the request of Dr. Frank for an opinion regarding a new diagnosis of RIGHT breast cancer. Patient presented with self discovered RIGHT breast mass a few months prior. He states she also noticed intermittent spontaneous bloody nipple discharge found in her bra. She underwent a diagnostic mammogram on 01/09/2023. This showed coarse calcifications in the upper outer quadrant suspicious. A RIGHT breast 1.8 cm nodule, with microcalcifications within it, was noted, in the upper lateral aspect. Subsequently, an ultrasound was performed demonstrating a 9 x 6 x 8 mm suspicious at 10:00, 3 cm FN. 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 In addition, a prominent right axillary node was reported. Lymph node biopsy is scheduled for 03/21/2023. Patient denies any other breast pain, skin changes, breast masses, and nipple discharge. Patient has not had any previous breast concerns, procedures or surgeries. PMH is significant for aorta valve replacement x3 (most recent 2019) d/t congential bicuspid valve (currently on Coumadin), s/p median sternonotomy, IDDM, hypothyroidism, migraines. BMI 36.7 States she had a skin lesion on her back removed recently,with a concern for melanoma, states it was negative, but she is scheduled for removal of additional surgery with Plant Nursery Worker on 04/14/2023. Saw Genetics: results were negative Dr. Garcia (med onc) Dr. Garcia (Rad onc) HISTORY OF BREAST PROCEDURE(S): Excisional biopsy left breast in 2006, which was benign PAST MEDICAL HISTORY: PAST MEDICAL HISTORY Diagnosis Date Aortic valve disorders Aortic valve disorders-stenosis Breast cancer (HCC) 01/2023 Diabetes mellitus (HCC) Diffuse cystic mastopathy Hypertension possibly d/t nuvaring Hypothyroid Irregular menstrual cycle Irregular periods Migraine without aura Peripheral vascular disease (HCC) PMH - PAST MEDICAL HISTORY OF glucose intolerance Unspecified asthma(493.90) as child PAST SURGICAL HISTORY: PAST SURGICAL HISTORY Procedure Laterality Date BX OF BREAST; INCISIONAL Right 02/04/2023 DELIVERY ONLY 12/14/08 11/14/10 , low transverse DELIVERY ONLY 04/2013 COLONOSCOPY SCREENING 05/2020 HEART VALVE REPAIR HEART VALVE REPLACEMENT LAPS SURG CHOLECYSTECTOMY W/CHOLANGIOGRAPHY 02/24/2007 LIG/TRNSXJ FLP TUBE ABDL/VAG APPR UNI/BI 04/2013 Tubal ligation PAST SURGICAL HISTORY OF 1991 heart cath for suspected ASD PAST SURGICAL HISTORY OF wisdom teeth PAST SURGICAL HISTORY OF 11/18/2006 aortic valve re: assending aortic anneurysm stent placement PAST SURGICAL HISTORY OF needle breast BX PERIPHERAL VASCULAR INTERVENTION PRQ BALLOON VALVULOPLASTY AORTIC VALVE 1992 SHX AORTIC VALVE REPLACEMENT 06/2020 mechanical On-X TONSILLECTOMY HX OBSTETRIC RELATED HISTORY: Patient did breast feed. Age at of First Child: 23 years of age. Age at Onset of Menses: 11 years of age. Age at Menopause: The patient is not menopausal at this time. Ovaries: both intact Uterus: removed P: 3 Patient's last menstrual period was 10/10/20 Exogenous Hormone Use: Oral Contraceptives FAMILY HISTORY: FAMILY HISTORY Problem Relation Age of Onset Thyroid Mother Assending aortic anneurysm Hypertension Mother Aortic valve replacement Diabetes Mother Diabetes Father Hypertension Father Lipids Father Multiple Sclerosis Sister 30 Hypertension Brother Heart Maternal Grandmother a fib Emphysema Maternal Grandmother Dementia Maternal Grandmother Osteoporosis Maternal Grandfather Prostate Cancer Maternal Grandfather Arthritis Maternal Grandfather No Known Problems Paternal Grandmother Diabetes Paternal Grandfather Breast Cancer Maternal Aunt at age 47 Auto-Immune Disorder Maternal Aunt Lupus Cancer Paternal Uncle bile duct The patient is not of Ashkenazic Ancestry. 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 Gonsales and GERD antibodies, cholelitheaiasis, gestational diabetes, hypothyroid. OR Course: Uncomplicated. OR Transfusions: none Pacing wires: Removed on 05/29 Preop: LVEF: 58% RVF: Normal Post CPB: LVEF: Normal RVF: Normal CVICU uncomplicated. RNF POD 1. A/Plan: -s/p Redo AVR. ASA and BB. -New LBBB noted on EKG. Reviewed with gordo Espinosa to discharge on BB and fu with Community Health Educator -Resp: on RA. Discharge on lasix -H/o gestational diabetes. Continue accuchecks -Dispo: From [place]. FU in the OPD scheduled Aortic Valve Disorder - 12/11/2006 (Severe priority) Comment: History of bicuspid AV s/p AVR & supracoronary aortic graft placement with Dr. Gonsales 2006. -Escalating NORMAN over the past year with each showing pk/mn gradients 107/60, DI 0.23. -Is now s/p redo bioprosthetic AVR. -Post-pump echo reviewed. Surg path: Aortic valve, explant - Bovine bioprosthetic valve with mild pannus formation and limited mobility of leaflets due to calcification. -Discharge on ASA and BB. Prosthetic Aortic Valve Stenosis - 06/19/2020 (A priority) Comment: History: BAV/ - S/P AVR 2005, 2012. Assessment: 06/19/20 Erd time redo sternotomy, On-X mechanical aortic valve Plan: ASA & Heparin to coumadin bridge, INR 1.2 History of Gestational Diabetes - 05/28/2013 (E priority) Comment: History of gestational diabetes, as such will continue accucheck surveillance & SSI for additional 24hrs & re-eval in the am. -Continue card restricted diet. -accuchecks remained within normal limits during this hospitalization -she had 1 abnormal in which she had just had some sugar prior to the test Hypothyroid - 05/28/2013 (E priority) Comment: History: History of hypothyroid on Synthroid 100mcg Assessment: TSH 1.4 Plan: Continue home regimen Pain, Acute Postoperative - 05/27/2013 (E priority) Comment: Post-op pain controlled. Breakthrough with cough, rates it a 4-6/10, however relieved with pain medication. -will discharge on APAP, ibuprofen and oxy IR discharge - 05/28/2013 (M priority) Comment: -, from [place]. -5 weeks post- (intends to breast feed when baby d/c from NICU > will need to review med regimen prior to d/c with infants' safety in mind). -FU appt scheduled in the OPD On Anticoagulant Therapy - 10/19/2020 Abnormal Uterine Bleeding (Aub) - 10/19/2020 Menorrhagia With Regular Cycle - 10/19/2020 History of Aortic Valve Replacement - 10/15/2020 Mild Intermittent Asthma Without Complication - 10/15/2020 Hypothyroidism - 10/15/2020 Fluid Overload - 06/23/2020 Comment: History: post-op Assessment: Up 4.6 kg Plan: 20 IV BID lasix, CXR in am Diabetes Mellitus Type 2, Controlled, Without Complications (Hcc) - 06/19/2020 Comment: History: DM Type 2 on Metformin pre-op (hgbA1c 5.6%) Assessment: Perioperative insulin resistance and exacerbation of hyperglycemia. Plan: Endo following Elevated Ldh - 06/16/2020 Encounter for Support and Coordination of Transition of Care - 06/15/2020 Comment: Indication for Surgery: Preop LVEF: Normal RVF: Normal Cards: Suleiman ECG: NSR Cath: nml Postop LVEF: Normal RVF: Normal PMH/PSH: BAV, s/p AVR 2005 and 2012, HTN, DM2, GERD, hypothyroidism Airway Difficulty: grade 1 view Pacing Wires: No: ventricular wires CUT 06/22 Surgery: 06/19/2020: 3rd time sternotomy , On- X mechanical aortic valve A/P: No tubes or wires -S/P On-X Mechanical Aortic Valve: Daily coumadin (INR 1.8 on 06/26) -FVO/CXR:Up 3.2kg, CXR showing small to medium left pleural effusion. 10 days of PO lasix at time of dc. -h/o DM on Metformin pre-op: Metformin and lantus at dc. -HTN (on Hygroton and Toprol XL): BP stable on BB lasix. Discharge Planning: From [place]. No skilled needs. Patient follows with power grader operator Dr Arvin Burgess ([phone]) at [facility] who fill follow patient's INR. Standing order for INR monitoring at local [place] lab placed. First INR check 06/28. OPD requested for 06/30. Discharge 06/26. Anti Discharge Planning Issues - 06/14/2020 Comment: Pt is a 34 y/o female from [place], [place] here for OHS. Pt may benefit from [facility] Obesity, Class I, Bmi 30-34.9 - 06/14/2020 Mechanical Complication Due to Heart Valve Prosthesis - 06/14/2020 Essential Hypertension - 06/14/2020 Comment: History: on Toprol 100mg and Hygroton 25mg prior to surgery Assessment: SBP stable. Plan: Continue metoprolol and IV lasix. Rosacea - 12/16/2011 Esophageal Reflux - 02/24/2008 Comment: Using Zantac as of 02-20 prn: not using a PPI as class C and wanting to get Nonspecific Abnormal Results of Liver Function Study - 02/24/2008 Comment: ALT 46 in - Impaired Fasting Glucose - 11/08/2007 Comment: Her raises beef Abnl glucose tolerance test with Bonezzi in 2004 UA negative for protein and blood in - A1C 5.6% in 2- Obesity - 09/25/2007 Comment: History: POA Assessment: Body mass index is 33.88 kg/m . Plan: nutrition consult and lifestyle modification Calculus of Gallbladder Without Mention of Cholecystitis Or Obstruction - 09/25/2007 Comment: Her raises beef Lap patrick in 02-19: done by Monika Chronic mid-epigastric abd pain-started after surgery: wondered about a stone but cholangio negative Other Abnormal Blood Chemistry - 09/25/2007 Comment: Uric acid 7.6 (2.6-6) in 2-08 Aortic Aneurysm (Hcc) - 12/11/2006 Comment: Ilda 11-18-06: stented thoracic aneurysm and placed a 23 mm bovine valve in the aortic positiion CURRENT MEDICATIONS: OZEMPIC 1 mg/dose (4 mg/3 mL) pen amLODIPine (NORVASC) 10 mg tablet Take 10 mg by mouth once daily. amoxicillin (AMOXIL) 500 mg capsule 500 mg. Pre dental work BASAGLAR KWIKPEN U-100 INSULIN 100 unit/mL (3 mL) Inject 34 Units subcutaneously daily at bedtime. losartan (COZAAR) 25 mg tablet Take 100 mg by mouth once daily. warfarin (COUMADIN) 5 mg tablet Take 2 tablets by mouth daily as directed. (Patient taking differently: Take 7 mg by mouth once daily. 12mg Sun, Tues, Thurs and Sat , Fri, Fri 11mg) metoprolol succinate ER (TOPROL XL) 100 mg Take 100 mg by mouth once daily. montelukast (SINGULAIR) 10 mg tablet Take 10 mg by mouth daily at bedtime. omeprazole magnesium (PRILOSEC ORAL) Take 40 mg by mouth once daily. aspirin 81 mg chewable tablet Take 1 tablet by mouth once daily. Levothyroxine 100 mcg cap Take 100 mcg by mouth once daily. ALLERGIES Allergen Reactions Adhesive Tape (Noy* tears skin Sulfa (Sulfonamide * Hives REVIEW OF SYSTEMS: GENERAL: No weight loss, malaise or fevers HEENT: Negative for frequent or significant headaches, No changes in hearing or vision RESPIRATORY: Negative for cough, wheezing, or shortness of breath CARDIOVASCULAR: (see HPI) Negative for chest pain, leg swelling, or heart palpitations MUSCULOSKELETAL: Negative for joint pain or swelling, back pain or muscle pain, no upper extremity swelling or lymphedema ABD: no abdominal pain INTEGUMENTARY: Denies Scleroderma or Lupus. Denies chronic skin conditions. ENDO:hypothyroidism (On meds) IDDM (34 unit nighty) BREASTS:She denies any new palpable breast masses, skin changes, nipple discharge, nipple retraction, breast pain or masses in her axilla. All other reviewed and negative other than HPI. Baldomero Manzanares PA-C OBJECTIVE: PHYSICAL EXAM: GENERAL:well-nourished, healthy, alert and oriented x 3, calm SKIN:warm, dry, skin color, texture, turgor normal HEAD/EYES:normocephalic, atraumatic, and anicteric NECK: supple, symmetrical, no thyromegaly RESPIRATORY: Respirations regular & non-labored ABDOMEN: soft, nondistended. No hepatomegaly., No masses MUSCULOSKELETAL: No observed limitations in range of motion of upper extremities. Patient ambulates independently BREASTS: The Patient was examined in the upright and supine positions. Breasts are symmetric. There are no significant fibrocystic changes. Patient's cup size is DD, grade II ptosis The patient was examined in the upright and supine position. RIGHT breast soft, there is a dominant palpable abnormality in her right breast at 10:00 close to the overlying skin measuring approximately 4 cm, nipple everted, with manipulation I am able to express a small amount of blood/pink-tinged nipple discharge from a duct at the 10 o'clock position, no skin changes RIGHT axilla no palpable axillary lymphadenopathy LEFT breast soft no palpable masses, fibrocystic, nipple everted, no discharge, no skin changes LEFT axilla no palpable axillary lymphadenopathy Regional Lymph Nodes: There is no concerning supraclavicular, infraclavicular or cervical lymphadenopathy. IMAGING TO DATE: UNILATERAL RIGHT DIGITAL DIAGNOSTIC MAMMOGRAM WITH CAD: 02/04/2023 HISTORY: Abnormal Mammogram/post biopsy clip placement right/prior mammograms done at [facility]/images being pushed. RESULT: TECHNIQUE: The study was acquired using full field digital technology and interpreted from soft copy. Current study was also evaluated with a Computer Aided Detection (CAD). No prior exams were available for comparison. The tissue of right breast is heterogeneously dense. This may lower the sensitivity of mammography. There is a marker clip in the appropriate position in the right breast superior lateral quadrant middle depth. There is a biopsy clip associated with the calcifications. IMPRESSION: POST PROCEDURE MAMMOGRAM FOR MARKER PLACEMENT There was a successful marker clip placement in the right breast superior lateral quadrant middle depth. Petra Del Rosario M.D BREAST MRI OF BOTH BREASTS: 03/05/2023 HISTORY: 37-year-old female who had an ultrasound-guided core needle biopsy in her surgeon's office 02-04-23. Pathology results indicate high-grade ductal carcinoma in situ with focus suspicious for stromal invasion. MRI to evaluate for extent of disease. FINDINGS: The tissue of both breasts is heterogeneously fibroglandular tissue. Bilateral background breast enhancement is mild. Left breast: There is no suspicious mass or enhancement in the left breast. No left axillary lymphadenopathy. The internal mammary chain is obscured by artifact related to median sternotomy wires. Right breast: There are multiple enhancing masses/nonmass enhancement in the upper outer quadrant extending from the nipple to the middle depth. The 2 largest masses each measure 1.1 x 1.1 cm and 1.8 x 1.4 cm (seen best in Agfa on series 7, image 65). The entire area enhances in a heterogeneous pattern and measures at least 4.7 cm (AP) by 2.6 (transverse) by 3.6 (craniocaudal) centimeters. The enhancement extends up to, and may extend into the right nipple, seen best in Agfa on series 7, image 41. There is artifact related to the coil biopsy clip in the center of the enhancement. This is the biopsy-proven cancer, and closely approximates the regional pleomorphic calcifications identified in the upper outer quadrant on mammogram performed 01-09-23. This area also abuts the skin, although no suspicious dermal enhancement identfied, seen best on series 7, image 58. No other suspicious mass or enhancement in the right breast. There is a 1.0 cm level I right axillary lymph node, seen best on series 3, image 100. No discrete fatty hilum identified. There are other normal nodes in the right axilla with preserved alvin and normal cortices. The internal mammary chain is obscured by artifact related to median sternotomy wires. IMPRESSION: KNOWN BIOPSY PROVEN MALIGNANCY Left [id number] 1 Negative. No evidence of malignancy by MRI criteria. Right [id number] 6 Biopsy-proven cancer in the upper outer quadrant extends from the middle depth to the right nipple. Nipple involvement cannot be excluded. This correlates with the regional pleomorphic calcifications identifed on mammogram. If patient is a candidate for conservation, additional biopsies will be necessaary to define extent of disease. Prominent right axillary lymph node. If clinically indicated, ultrasound could be performed to further evaluate, particularly considering the patient has pathology suspicious for stromal invasion. This patient is followed by Jose Tijerina, and Adriel. PATHOLOGY RESULTS: 02/04/2023 FINAL DIAGNOSIS A. 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 - Focus suspicious for stromal invasion. Diagnosis Comment A multiplex immunostain for ADH5 was used in the evaluation of this material. The p63 and CK5/14 components highlight an intact myoepithelial cell layer while the luminal epithelium of interest has expression of only CK7/18, supporting the diagnosis of ductal carcinoma in situ. Rare scattered tumor cells are present in the stroma without myoepithelial lining, suspicious for stromal invasion. This case has been reviewed at the breast pathology consensus meeting with Laney Jackson and Joanna with concurrence. Breast Biomarkers - ER DCIS RESULTS: Estrogen Receptor (ER) Negative <1% Stain intensity: not applicable GENETIC TESTIN02/28/2023 Genetic testing negative Breast Cancer STAT Panel with reflex to a Custom Cancer Panel through [facility] was negative for a pathogenic variant. SOZO Review 03/13/2023 Extremity measured Right arm Pacemaker/ Defibrillator/ Possible No Dominant Side Right Bilateral/ Unilateral Measurement Unilateral Patient Position Standing LDEX Result Green LDEX Score -4.4 Provider notified Yes Another SOZO Measurement needed No ASSESSMENT: Kimberly Reis is a 37 year old female with a RIGHT breast bloody nipple discharge, multiple enhancing masses and calcifications/ enhancement in the upper outer quadrant extending from the nipple to the middle depth. The 2 largest masses each measure 1.1 x 1.1 cm and 1.8 x 1.4 cm The entire area enhances in a heterogeneous pattern and measures at least 4.7 cm (AP) by 2.6 (transverse) by 3.6 (craniocaudal) centimeters. The enhancement extends up to, and may extend into the right nipple, this area also abuts the skin, although no suspicious dermal enhancement identified. Bx (open coil clip) shows DCIS with suspicion for invasion. There is a 1.0 cm level I right axillary lymph node,No discrete fatty hilum identified. There are other normal nodes in the right axilla with preserved alvin and normal cortices. (Abnormal LN not yet biopsied) ER- cTis could be T2, N0-1Mx Genetic testing negative PLAN: DIAGNOSIS: (C50.412, Z17.1) Malignant neoplasm of upper-outer quadrant of left breast in female, estrogen receptor negative (HCC) (primary encounter diagnosis) (R59.0) Enlarged lymph nodes in armpit (Z91.89) At risk for lymphedema I have examined Ms. Reis and reviewed the physical findings, imaging and pathology reports with her. A discussion was held with the patient regarding the local-regional, as well as systemic treatment of her Breast Cancer. We discussed role of breast conservation surgery or mastectomy, indications and risks of sentinel lymph node biopsy, possibility of axillary lymph node dissection, breast reconstruction, and role of systemic and radiation therapy. Discussed the importance of obtaining the lymph node biopsy. If the lymph node shows cancer then we know the diagnosis is invasive cancer and not DCIS and that this is spread to her lymph node. If this is the case would recommend neoadjuvant chemotherapy. If the lymph node is negative would recommend surgery first. IMAGING ORDERED TODAY:Bx of her abnormal LN 03/21/23 -will talk to radiology to see if this can get moved sooner Discussed the options for mastectomy versus lumpectomy. Discussed that with her bloody nipple discharge I do not feel it is oncologically safe to save her nipple and this would need to be excised. We reviewed the extent of disease and how close it is to her overlying skin in that area. Partial mastectomy with oncoplastic closure could be performed although this would be very difficult. Also discussed skin sparing mastectomy with implant placement. BMI [address] Ceron, plastic surgery, today to discuss both of these options. We will need to regroup after the lymph node biopsy result to determine chemo and what type of surgery. She has met with Dr. Garcia medical oncology and Dr. Garcia, radiation oncology in [facility] The patient had a basseline L-Dex SOZO measurement which I reviewed today, as noted above in the health record. We reviewed that bioimpedance spectroscopy helps identify the early onset of lymphedema in an arm or leg before patients experience noticeable swelling. Research has shown that 92% of patients with early detection of lymphedema using L-Dex combined with breast rehab intervention do not progress to chronic lymphedema. Whenever possible, patients are tested for baseline L-Dex score before cancer treatment begins and then are reassessed during regular follow-up visits using the SOZO device. If the patient's L-Dex score increases above normal levels, that is a sign that lymphedema is developing and a referral is made to physical therapy for further evaluation and early compression treatment. Lymphedema assessment with the SOZO L-Dex score is recommended to be done at baseline prior to surgery and at follow-up survivorship visits to screen for lymphedema per NCCN guidelines of breast cancer survivorship. All questions were answered and the patient had no further concerns at this time Ms. Reis was given our contact information if she has any further questions or concerns. Nancy Morel DO, FACS Breast Surgeon [facility] Cc: Dr. Osmany Sweet documented in this encounter [facility] 03-07-2023 Miscellaneous Notes Called Patient to schedule her for a breast biopsy per Dr Morel order is in system left message to call at [phone] documented in this encounter [facility] 03-05-2023 Note [facility] 03-05-2023 History of Present illness Narrative Radiology Service Progress Note DATE OF SERVICE: March 05, 2023 TIME: 3:11 PM PATIENT IDENTITY VERIFICATION COMPLETED USING TWO (2) STANDARD IDENTIFIERS: Name and Date of confirmed by patient verbally and Name and Date of confirmed by identification band. FALL SCREENING: Has the patient had 2 falls in the last year or 1 fall with injury or currently using an Ambulatory Assistive Device (Walker, Cane, Wheelchair, Crutches, etc.)? No PATIENT GENDER DATA: Female. status: : No status: NO. PATIENT RELEVANT IMPLANT DATA REVIEWED: Yes ALLERGIES: Reviewed and unchanged CONTRAST ALLERGY: NO. EXAM: MRI - CONTRAST TYPE: GROUP II PERIPHERAL IV DATA: Ambulatory: A peripheral IV was started in the Right antecubital site with a Angio cath: 22 gauge. RADIOLOGY DEPARTMENT: MR; Exam(s) Completed: Chest: Breast SIGNATURE: RT Faith(Toy) PATIENT NAME: Kimberly Reis DATE: March 05, 2023 TIME: 3:11 PM documented in this encounter [facility] 02-28-2023 Miscellaneous Notes Results left on patient voicemail. Kimberly Reis's Breast Cancer STAT Panel with reflex to a Custom Cancer Panel through [employer] was negative for a pathogenic variant. Please see Carwowt message for further discussion. Luis Watts MS, [facility] [place] Licensed, Certified Genetic Counselor documented in this encounter [facility] 02-19-2023 Note [facility] 02-19-2023 Note [facility] 02-19-2023 History of Present illness Narrative Patient referred by Dr. Frank for DCIS. The impression and plan will be communicated by way of the shared electronic record or faxed under separate cover letter. HPI: The patient is a 37-year-old female with a past medical history significant for prosthetic aortic valve replacement, mechanical hemolysis, hypothyroidism, type 2 diabetes who was recently diagnosed with breast cancer. 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 She underwent valve replacement with a tissue valve, 23 mm try effective valve in May 2013. She also has DM2, GERD, HTN, asthma and hypothyroidism. Admitted to [facility] on 03/12/2020 after presenting to the ER with worsening dyspnea on exertion. On presentation she was found to have a hemoglobin of 8.0 g/dL. White count was 8000. Differential unremarkable. Platelet count 228,000. Patient was admitted to the PCU. And received a 2 unit red blood cell transfusion. She also was given a dose of iron sucrose, 200 mg. Stool was negative for occult blood. Following transfusion hemoglobin increased to 9 g/dL. She underwent a repeat echocardiogram that demonstrated an EF of 60% with moderate concentric left ventricular hypertrophy, stage II diastolic dysfunction and mean aortic valve gradient 67 mmHg consistent with severe aortic stenosis. This was thought secondary to the severe degree of anemia and a repeat echocardiogram in 4-6 weeks was planned. Coagulation times are normal. D-dimer was elevated at 0.61. Chemistry significant for normal bilirubin on admission at 0.7 mg/dL. LDH however was significantly elevated at 1132 unit(s)/L and haptoglobin was <10 mg/dL. Blood bank antibody screen was negative--direct Yoni test with polyspecific antiserum was negative. Ferritin was 12 nanograms per mL. TIBC was 365 mcg/dL. Iron saturation 7.4%. Vitamin B-12 404 pg per mL. Direct bilirubin normal. Patient underwent Mirena insertion on 03/28/2020. She had been having heavy menses for ~18 months. Passing clots. Occasional overflow from tampon. Recheck of CBC on 04/03 demonstrated white count 7500. Hemoglobin 10.6 g/dL with a platelet count of 292,000. Reticulocytes count was 5.68%. Haptoglobin was still less than 10. LDH not remeasured. Chemistry panel on that day demonstrated total bilirubin 0.70 mg/dL. AST was 67 with a normal ALT at 41. Was seen by power grader operator 04/07. Valve gradient down to 48 mmHg. She is on light duty at work. She is still short of breath with walking. Gets occasional anterior chest burning with walking and lying down especially on left side. Gets orthopnea with the pain as well. She doesn't notice pitting edema but power grader operator noticed trace pitting last OV. Was on Zantac intermission coordinator and started PPI 10/2019. She received parenteral iron. Had improvement in hemoglobin but had persistent evidence of ongoing hemolysis fairly well compensated. Repeatedly Yoni negative. Thorough work-up otherwise suggested no other etiology other than prosthetic valve dysfunction manifested as aortic valve stenosis and regurgitation. She underwent third redo sternotomy for aortic valve replacement using size 23, On-X mechanical valve on 06/19/2020. Bilateral diagnostic mammogram and US 01/09/2023: Breast Composition: The breasts are extremely dense, which lowers the sensitivity of mammography. The palpable abnormality corresponds to a 1.8 cm x 1.5 cm nodule in the upper lateral aspect of the right breast. Microcalcifications are seen within it. Correlation with ultrasound and biopsy is recommended. No other significant abnormalities are identified. RIGHT Breast: The palpable abnormality corresponds to a lobulated hypoechoic heterogeneous nodule at the 10:00 position of the breast at 3 cm from the nipple. This measures 9 mm x 6 mm x 8 mm. Biopsy recommended. Underwent right breast needle core biopsy on 02/04/2023. Pathology: A. 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 - Focus suspicious for stromal invasion. A multiplex immunostain for ADH5 was used in the evaluation of this material. The p63 and CK5/14 components highlight an intact myoepithelial cell layer while the luminal epithelium of interest has expression of only CK7/18, supporting the diagnosis of ductal carcinoma in situ. Rare scattered tumor cells are present in the stroma without myoepithelial lining, suspicious for stromal invasion. ER negative (<1%). She feels well in general and offers no complaints today. She remains on Coumadin for history of mechanical aortic valve. She underwent hysterectomy in October 2020 for menorrhagia. She bridged that procedure with Lovenox and after surgery was advised to stop Lovenox once her INR was at 1.8. 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 PAST MEDICAL HISTORY Diagnosis Date Aortic valve disorders Aortic valve disorders-stenosis Diabetes mellitus (HCC) Diffuse cystic mastopathy Hypertension possibly d/t nuvaring Hypothyroid Irregular menstrual cycle Irregular periods Migraine without aura Peripheral vascular disease (HCC) PMH - PAST MEDICAL HISTORY OF glucose intolerance Unspecified asthma(493.90) as child PAST SURGICAL HISTORY Procedure Laterality Date BX OF BREAST; INCISIONAL Right 02/04/2023 DELIVERY ONLY 12/14/08 11/14/10 , low transverse DELIVERY ONLY 04/2013 COLONOSCOPY SCREENING 05/2020 HEART VALVE REPAIR HEART VALVE REPLACEMENT LAPS SURG CHOLECYSTECTOMY W/CHOLANGIOGRAPHY 02/24/2007 LIG/TRNSXJ FLP TUBE ABDL/VAG APPR UNI/BI 04/2013 Tubal ligation PAST SURGICAL HISTORY OF 1991 heart cath for suspected ASD PAST SURGICAL HISTORY OF wisdom teeth PAST SURGICAL HISTORY OF 11/18/2006 aortic valve re: assending aortic anneurysm stent placement PAST SURGICAL HISTORY OF needle breast BX PERIPHERAL VASCULAR INTERVENTION PRQ BALLOON VALVULOPLASTY AORTIC VALVE 1992 SHX AORTIC VALVE REPLACEMENT 06/2020 mechanical On-X TONSILLECTOMY HX ALLERGIES Allergen Reactions Adhesive Tape (Noy* tears skin Sulfa (Sulfonamide * Hives Current Outpatient Medications Medication Sig amLODIPine (NORVASC) 10 mg tablet Take 10 mg by mouth once daily. amoxicillin (AMOXIL) 500 mg capsule 500 mg. Pre dental work BASAGLSALVATORE HORTA U-100 INSULIN 100 unit/mL (3 mL) Inject 44 Units subcutaneously daily at bedtime. losartan (COZAAR) 25 mg tablet Take 100 mg by mouth once daily. warfarin (COUMADIN) 5 mg tablet Take 2 tablets by mouth daily as directed. (Patient taking differently: Take 7 mg by mouth once daily. 12mg Sun, , and Fri , Fri, Fri 11mg) metoprolol succinate ER (TOPROL XL) 100 mg Take 100 mg by mouth once daily. montelukast (SINGULAIR) 10 mg tablet Take 10 mg by mouth daily at bedtime. omeprazole magnesium (PRILOSEC ORAL) Take 40 mg by mouth once daily. aspirin 81 mg chewable tablet Take 1 tablet by mouth once daily. Levothyroxine 100 mcg cap Take 100 mcg by mouth once daily. No current facility-administered medications for this visit. Family History Problem Relation Age of Onset Thyroid Mother Assending aortic anneurysm Hypertension Mother Aortic valve replacement Diabetes Mother Diabetes Father Hypertension Father Lipids Father Multiple Sclerosis Sister 30 Hypertension Brother Heart Maternal Grandmother a fib Emphysema Maternal Grandmother Dementia Maternal Grandmother Osteoporosis Maternal Grandfather Prostate Cancer Maternal Grandfather Arthritis Maternal Grandfather No Known Problems Paternal Grandmother Diabetes Paternal Grandfather Breast Cancer Maternal Aunt at age 47 Auto-Immune Disorder Maternal Aunt Lupus Cancer Paternal Uncle bile duct Maternal aunt above had IDC ER/[place] negative, HER2 positive at age 46 in 2008. Alive and well now. ROS: Constitutional: No fever. No drenching night sweats. Normal appetite. No unexplained weight loss. No significant fatigue. Neuro: No recent STOUT, vertigo, dizziness or imbalance. No symptoms of sensory neuropathy. HEENT: No recent change in voice, vision or hearing. Resp: No cough, wheeze of hemoptysis. No shortness of breath at rest. Stable dyspnea when carrying laundry up the stairs. CVS: Palpitations. No exertional chest pain, PND or orthopnea. Mild, chronic lower extremity swelling. No symptoms of claudication. No painful or tender varicose veins. GI: No dysphagia or odynophagia. No reflux, n/v, change in bowel habits. No abdominal pain, bloating or distension. No black or bloody stools. : No dysuria or gross hematuria. Endo: No hot flashes. No polyuria or polydipsia. No heat or cold intolerance. Musculoskeletal: No bone, back, joint and muscular pain. Derm: No current rash. No history of jaundice. No diffuse pruritis. Heme: No unusual bleeding and unexplained bruising. Psych: Normal mood. Hysterectomy for menorrhagia 10/2020. PHYSICAL EXAM: Vitals: Blood pressure 122/64, pulse 62, temperature 36.3 C (97.4 F), temperature source Temporal, resp. rate 12, height 169.5 cm (5' 6.75 ), weight 105.7 kg (233 lb), last menstrual period 09/29/2020, SpO2 96 %. Well-appearing and in no acute distress. EYES: Sclerae are anicteric bilaterally. LYMPHATIC: There is no palpable cervical, supraclavicular, axillary adenopathy. RESPIRATORY: Inspiratory breath sounds are of normal intensity in all martinez. No rales, wheezes or rhonchi. Expiratory phase is normal. CARDIOVASCULAR: Rhythm is regular. There is a valve click along with a slight systolic murmur. BREAST: acted as reset merchandiser. In the upper outer quadrant of the right breast there is a mobile firm mass measuring roughly 2-1/2 to 3 x 2 and half to 3 cm in size. Subjectively she had swelling after biopsy. In the left breast the architecture is very lumpy/bumpy. More prominent nodularity in the upper outer quadrant. ABDOMEN: The abdomen is nondistended. No tenderness. Extremities: Mild pitting edema extending from ankles to the proximal one third of the lower extremities bilaterally. SKIN: No jaundice. 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 -ER negative. -Discussed the definition of DCIS and microinvasive disease. Answered all of her and her 's questions to their satisfaction. -At this juncture cannot make any specific recommendations regarding potential neoadjuvant or adjuvant therapy. She will require an MRI as part of the work-up due to the density of the breast tissue. Plan: -MRI Breast as scheduled. -Scheduled for blood draw today for genetic testing. -Has surgical consultation appointment with Dr. Morel following MRI. -Further medical oncologic recommendations pending outcome of MRI and surgical opinion. Portions of this documentation were copied and pasted from previous office visit notes in order to provide a cohesive continuity of the history. The note has been reviewed and edited and updated as necessary. I spent a total of 50 minutes on the date of the service which included preparing to see the patient, [id number] patient care, completing clinical documentation, obtaining and/or reviewing separately obtained history, performing a medically appropriate examination, counseling and educating the patient/family/caregiver, communicating with other HCPs (not separately reported), and communicating results to the patient/family/caregiver. Scotty Garcia DO documented in this encounter [facility] 02-19-2023 History of Present illness Narrative Radiation Oncology - New Patient/Consult Note PATIENT NAME: Kimberly Reis PATIENT REQUESTING PROVIDER: Dr. Nancy Morel DIAGNOSIS: High grade DCIS of the right breast with suspicious microinvasion. It's ER negative (<1%). HPI: 37 year old female who presents with above diagnosis, for an opinion regarding the role of radiation therapy in the management of the patient's disease. Final recommendations will be communicated back to the requesting physician by way of the shared medical record, or letter to requesting physician via US mail. 37 year old woman who felt a lump in the right breast. Bilateral diagnostic mammogram on 01/09/23 showed a 1.8 cm x 1.5 cm nodule in the upper lateral aspect of the right breast. Microcalcifications are seen within it. US of the right breast showed a a lobulated hypoechoic heterogeneous nodule corresponding to the palpable abnormality at the 10:00 position of the breast at 3 cm from the nipple. This measures 9 mm x 6 mm x 8 mm. Core biopsy of the right breast lesion showed high grade DCIS with lobular involvement, solid type. There were rare scattered tumor cells present in the stroma without myoepithelial lining, suspicious for stromal invasion. It's ER negative (<1%). ALLERGIES Allergen Reactions Adhesive Tape (Noy* tears skin Sulfa (Sulfonamide * Hives PAST MEDICAL HISTORY Diagnosis Date Aortic valve disorders Aortic valve disorders-stenosis Diabetes mellitus (HCC) Diffuse cystic mastopathy Hypertension possibly d/t nuvaring Hypothyroid Irregular menstrual cycle Irregular periods Migraine without aura Peripheral vascular disease (HCC) PMH - PAST MEDICAL HISTORY OF glucose intolerance Unspecified asthma(493.90) as child Prior radiation therapy, collagen vascular disease, or inflammatory bowel disease: No status: s/p hysterectomy in 2020 for menorrhagia. PAST SURGICAL HISTORY Procedure Laterality Date BX OF BREAST; INCISIONAL Right 02/04/2023 DELIVERY ONLY 12/14/08 11/14/10 , low transverse DELIVERY ONLY 04/2013 COLONOSCOPY SCREENING 05/2020 HEART VALVE REPAIR HEART VALVE REPLACEMENT LAPS SURG CHOLECYSTECTOMY W/CHOLANGIOGRAPHY 02/24/2007 LIG/TRNSXJ FLP TUBE ABDL/VAG APPR UNI/BI 04/2013 Tubal ligation PAST SURGICAL HISTORY OF 1991 heart cath for suspected ASD PAST SURGICAL HISTORY OF wisdom teeth PAST SURGICAL HISTORY OF 11/18/2006 aortic valve re: assending aortic anneurysm stent placement PAST SURGICAL HISTORY OF needle breast BX PERIPHERAL VASCULAR INTERVENTION PRQ BALLOON VALVULOPLASTY AORTIC VALVE 1992 SHX AORTIC VALVE REPLACEMENT 06/2020 mechanical On-X TONSILLECTOMY HX FAMILY HISTORY Problem Relation Age of Onset Thyroid Mother Assending aortic anneurysm Hypertension Mother Aortic valve replacement Diabetes Mother Diabetes Father Hypertension Father Lipids Father Multiple Sclerosis Sister 30 Hypertension Brother Heart Maternal Grandmother a fib Emphysema Maternal Grandmother Dementia Maternal Grandmother Osteoporosis Maternal Grandfather Prostate Cancer Maternal Grandfather Arthritis Maternal Grandfather No Known Problems Paternal Grandmother Diabetes Paternal Grandfather Breast Cancer Maternal Aunt at age 47 Auto-Immune Disorder Maternal Aunt Lupus Cancer Paternal Uncle bile duct Social History Tobacco Use Smoking status: Never Smokeless tobacco: Never Vaping Use Vaping Use: Never used Substance Use Topics Alcohol use: No Drug use: Never COMPLETE REVIEW OF SYSTEMS: GENERAL: feeling well without fatigue, no recent change in weight HEENT: denies STOUT, change in hearing or vision, no other ENT complaints NECK: denies swelling or pain in neck RESPIRATORY: h/o childhood asthma. CARDIOVASCULAR: h/o congenital bicuspid aortic valve and ascending aortic dilation s/p aortic valve replacement. GI: h/o GERD. : urination is normal MUSCULOSKELETAL: denies any painful or swollen joints, no muscle aches SKIN: no rash HEMATOLOGY/LYMPHOLOGY: On coumadin for history of mechanical aortic valve NEURO: no numbness or paresthesias and no weakness of the extremities PHYSICAL EXAM: VS: BP 172/77 Pulse (!) 56 Temp 36.3 C (97.4 F) (Temporal) Resp 20 Wt 105.7 kg (233 lb) LMP 09/29/2020 SpO2 96% BMI 36.49 kg/m KPS: 90 General Appearance: Alert and oriented. No acute distress. HEENT: NCAT. Sclera anicteric. EOMI. Neck: Normal ROM. Chest: No respiratory distress. Breasts: Fullness in the right central breast. Abdomen: Soft. Nontender. Nondistended. Musculoskeletal: No edema. Normal ROM in extremities. Neuro: Speech fluent. Gait normal. No focal deficits. Skin: No rashes noted Lymphatics: No palpable cervical or supraclavicular or axillary adenopathy. Hematologic: No signs of active bleeding. RADIOLOGY/LABORATORY DATA: see HPI ASSESSMENT AND PLAN: 37 year old woman with recently diagnosed high grade DCIS of the right breast with suspicious microinvasion. It's ER negative (<1%). She had only biopsy done so far. She is scheduled to have MRI breasts and then to see Dr. Morel to discuss surgical options. I discussed breast conserving therapy with lumpectomy and radiation treatment. If she has mastectomy, radiation treatment may not be indicated if negative margins. I told her that there is chance of upstaging to invasive cancer at the time of surgery especially with suspicious microinvasion. If so and if node is positive, she may benefit from radiation treatment even after mastectomy. She will see Dr. Garcia today and I understand that genetic testing is considered. I explained the rationale, benefits, alternative management options and potential complications of radiation treatment to the patient and her . I answered all their questions. I will review final pathology after surgery for final recommendation. Thank you very much for allowing us to participate in her care. Signed by: Josefina Garcia MD cc: Jonas Sweet () [id number] [place] [address] Scotty Morel documented in this encounter [facility] 02-19-2023 Nurse Note Radiation Therapy - Nursing Note (Consult) PATIENT NAME: Kimberly Reis PATIENT February 19, 2023 [facility] FACILITY/LOCATION: [place] Chief Complaint: breast cancer Reason for visit: Consult. Referring physician: Internal provider Dr Frank Subjective Data: no complaints Additional Data Do you want to see a Sas Developer? No Are you interested in information about fertility? No Status: Patient states there is no possibility she is at this time Stress Scale: On a scale of 0 to 10, what number best describes how much distress you have experienced in the past week?(0 being no distress and 10 being extreme distress) 4 Social work notified: Pt denied need to see social media campaign manager at this time. SIGNED by: Marcie Yee RN documented in this encounter [facility] 02-17-2023 Note [facility] 02-17-2023 History of Present illness Narrative [facility] Consultation Note Genetic Counselor: Luis Watts MS, [facility] [place] Patient: Kimberly Reis Patient Name and confirmed at initiation of visit. Appointment occurred with audiovisual communication through [employer] Virtual Visit. I have communicated my name and active licensure. The patient's identity and physical location were verified at the time of this visit. Either the patient or their legal software sales representative has been informed of the risks and benefits of -- and alternatives to -- treatment through a remote evaluation and consents to proceed with the evaluation remotely. HIGH LEVEL SUMMARY: The patient's personal and family history is potentially suggestive of a hereditary cancer syndrome. The patient provided informed consent for Breast Cancer STAT Panel with reflex to a Custom Cancer Panel through [employer]. Results are expected in 1-2 weeks. IDENTIFICATION AND CHIEF COMPLAINT: Dr. Morel requested a consultation for genetic counseling and risk assessment for Kimberly Reis, a 37 year old female, for discussion of her personal history of breast cancer. She presents to clinic today to discuss the possibility of a genetic predisposition to cancer, and to further clarify her risks, as well as her family members' risks for cancer. HISTORY OF PRESENT ILLNESS: In January of 2023, at the age of 37, Kimberly Reis was diagnosed with ductal carcinoma in situ of the Right breast. She met with a general surgeon who discussed lumpectomy with radiation versus a mastectomy. She has an appointment with Dr. Morel as a second opinion on 03/13/23. Patient indicates that genetic test results could impact her surgical decision. PAST MEDICAL HISTORY Diagnosis Date Aortic valve disorders Aortic valve disorders-stenosis Diabetes mellitus (HCC) Diffuse cystic mastopathy Hypertension possibly d/t nuvaring Hypothyroid Irregular menstrual cycle Irregular periods Migraine without aura Peripheral vascular disease (HCC) PMH - PAST MEDICAL HISTORY OF glucose intolerance Unspecified asthma(493.90) as child PAST SURGICAL HISTORY Procedure Laterality Date DELIVERY ONLY 12/14/08 11/14/10 , low transverse DELIVERY ONLY 04/2013 COLONOSCOPY SCREENING 05/2020 HEART VALVE REPAIR HEART VALVE REPLACEMENT LAPS SURG CHOLECYSTECTOMY W/CHOLANGIOGRAPHY 02/24/2007 LIG/TRNSXJ FLP TUBE ABDL/VAG APPR UNI/BI 04/2013 Tubal ligation PAST SURGICAL HISTORY OF 1991 heart cath for suspected ASD PAST SURGICAL HISTORY OF wisdom teeth PAST SURGICAL HISTORY OF 11/18/2006 aortic valve re: assending aortic anneurysm stent placement PAST SURGICAL HISTORY OF needle breast BX PERIPHERAL VASCULAR INTERVENTION PRQ BALLOON VALVULOPLASTY AORTIC VALVE 1993 SHX AORTIC VALVE REPLACEMENT 06/2020 mechanical On-X TONSILLECTOMY HX CANCER SURVEILLANCE HISTORY: Colonoscopy: Yes / 2019 EGD: Yes / 2019 GI Polyps: No Pelvic Exam: Yes / s/p Uterus, cervix, bilateral fallopian tubes, hysterectomy and bilateral salpingectomy in 2020 Dermatology: Yes / unknown pathology SOCIAL HISTORY: Social History Tobacco Use Smoking status: Never Smokeless tobacco: Never Vaping Use Vaping Use: Never used Substance Use Topics Alcohol use: No Drug use: No FAMILY HISTORY: We obtained a detailed, 4-generation family history. Significant diagnoses are listed below: FAMILY HISTORY Problem Relation Age of Onset Thyroid Mother Assending aortic anneurysm Hypertension Mother Aortic valve replacement Diabetes Mother Diabetes Father Hypertension Father Lipids Father Multiple Sclerosis Sister 30 Hypertension Brother Heart Maternal Grandmother a fib Emphysema Maternal Grandmother Osteoporosis Maternal Grandmother Prostate Cancer Maternal Grandfather Arthritis Maternal Grandfather Diabetes Paternal Grandfather Breast Cancer Maternal Aunt at age 47 Auto-Immune Disorder Maternal Aunt Lupus Cancer Paternal Uncle bile duct A copy of the patient's pedigree will be available under the scanned documents tab following today's visit. GENETIC COUNSELING RISK ASSESSMENT, DISCUSSION, AND SUGGESTED FOLLOW UP: We reviewed the natural history and genetic etiology of sporadic, familial and hereditary cancer syndromes. The patient's personal and family history is potentially suggestive of: a hereditary cancer syndrome The patient meets NCCN HBOC testing criteria based on her personal history of breast cancer diagnosed <= 50 years of age. We discussed that identification of a hereditary cancer syndrome may help her care providers tailor her medical management. If a mutation is detected, the patient will be referred back to the referring provider and to any additional appropriate care providers to discuss the relevant options. Inheritance of hereditary cancer syndromes was discussed with the patient. If a mutation is not found in the patient, this will decrease the likelihood of a hereditary cancer syndrome as the explanation for the patient's personal and family history of breast cancer. However, it cannot completely rule out this possibility. Cancer surveillance options would be discussed for the patient according to the appropriate standard National Comprehensive Cancer Network and [place] [employer] guidelines, with consideration of their personal and family history risk factors. In this case, the patient will be referred back to their care providers for discussions of management. Based on this assessment of the patient's family and personal history, genetic testing is recommended. It was reviewed that if she were to have a hereditary cause for her breast cancer it would most likely be due to a BRCA1/2 mutation. It was also discussed that other genes beyond BRCA1/2 could account for the history and be tested along with BRCA1/2 via a multigene panel. The patient was offered Breast Cancer STAT Panel with reflex to a Custom Cancer Panel through [facility]. After considering the risks, benefits, and limitations, the patient chose to pursue and provided informed consent for the following testing: Breast Cancer STAT Panel with reflex to a Custom Cancer Panel through [facility]. The STAT breast cancer panel includes DONATO, BRCA1, BRCA2, CDH1, CHEK2, PALB2, PTEN, STK11, and TP53. The Custom Cancer Panel includes APC, DONATO, AXIN2, BAP1, BARD1, BMPR1A, BRCA1, BRCA2, BRIP1, CDH1, CDK4, CDKN2A, CHEK2, CTNNA1, DDX41, DICER1, EPCAM, FH, FLCN, GREM1, HOXB13, MAX, MEN1, MET, MITF, MLH1, MSH2, MSH3, MSH6, MUTYH, NF1, NTHL1, PALB2, PMS2, POLD1, POLE, POT1, PTCH1, PTEN, RAD51C, RAD51D, RET, SDHA, SDHAF2, SDHB, SDHC, SDHD, SMAD4, SMARCA4, STK11, DBBJ946, TP53, TSC1, TSC2, and VHL The Custom Cancer Panel looks at genes associated with inherited breast, ovarian, pancreatic, prostate, colon, uterine, kidney, stomach, and endocrine cancers, as well as inherited colon polyp and melanoma syndromes. We discussed that an NGS panel can rarely result in an unexpected finding in a gene which may or may not be related to the presenting phenotype. We discussed how [facility] will communicate about any billing related concerns to the patient by text or email. We discussed that the genetic testing lab will contact them with any out of pocket cost over $100 and the maximum out of pocket cost is the $250. The patient may receive an Explanation of Benefits (EOB) from their insurance provider. I explained that this is not a bill and any billing related costs for testing will come directly from the genetic testing lab. Per the patient's request, I will contact her by telephone to discuss these results. A follow up genetic counseling visit will be scheduled if requested. The patient was seen for a total of 30 minutes, greater than 50% of which was spent [id number] counseling. This plan is being carried out under the oversight of Dr. Nancie Fowler. This note will also be sent to the referring provider via the electronic medical record. Luis Watts MS, [facility] [place] Licensed, Certified Genetic Counselor [facility] CC: Dr. Adriel Fowler [facility] documented in this encounter [facility] 02-17-2023 Miscellaneous Notes Spoke with patient and scheduled both appts as requested. When you schedule her to see Dr. Garcia, please schedule her to see me as well at 1 pm on the same day so that she can see both of us in one trip. Thank you!. Please schedule her to see me Friday at 2 pm as a new patient for diagnosis of breast cancer. Scotty Garcia DO documented in this encounter [facility] 02-14-2023 Miscellaneous Notes Called and spoke to pt regarding appointment with . Appointment was made for 03/13 at 8:30 am at the [place] location. Went over additional appointments she may or may or not need. Imaging received and what (MMG/US/MRI - radiology reviewed yet? In [facility] Pathology slides sent / reviewed? In [facility] Consults: Breast psych (Dirk) not at this time Med onc yes requested per pt request Rad onc yes requested Plastics yes Requested MRI yes 03/05 at 3:20 pm Genetics yes requested Pt thanked me for the call, answered all questions. She has my contact information if she any other concerns. Lottie Posey LPN documented in this encounter [facility] 02-11-2023 Note [facility] 02-08-2023 Note [facility] 02-04-2023 Note [facility] 02-04-2023 Note [facility] 02-04-2023 Note [facility] 02-04-2023 History of Present illness Narrative Radiology Service Progress Note PATIENT NAME: Kimberly Reis DATE OF SERVICE: February 04, 2023 TIME: 2:43 PM PATIENT IDENTITY VERIFICATION COMPLETED USING TWO (2) IDENTIFIERS: Name and Date of confirmed by patient verbally. FALL SCREENING: Has the patient had 2 falls in the last year or 1 fall with injury or currently using an Ambulatory Assistive Device (Walker, Cane, Wheelchair, Crutches, etc.)? No PATIENT GENDER DATA: Female. status: : No status: NO. PATIENT RELEVANT IMPLANT DATA REVIEWED: Not Applicable RADIOLOGY DEPARTMENT: Mammography PERIPHERAL IV DATA: Not applicable SIGNED BY: Kimberly Prasad February 04, 2023 2:43 PM documented in this encounter [facility] 01-22-2023 Note [facility] 01-22-2023 History of Present illness Narrative HISTORY AND PHYSICAL - BREAST COMPLAINT Kimberly Reis 1985 REFERRING PHYSICIAN: Jonas Sweet MD CHIEF COMPLAINT: Abnormal mammogram (primary encounter diagnosis) HPI: The patient is a 37 year old female with a complaint of an abnormal mammogram. The patient had a mammogram with ultrasound on 01/09/23 which demonstrated 9 mm lesion at the 10 o'clock position +3 cm in the right breast: The patient denies a history of breast masses. She does perform a self breast exam routinely. She notes no skin changes. She denies nipple discharge. She notes no axillary masses. She notes no family history of breast problems. She notes no significant breast trauma or breast difficulties in the past. The patient is being seen by me today at the request of Dr. Jonas Sweet MD for my opinion and advice regarding Abnormal mammogram (primary encounter diagnosis). PAST MEDICAL HISTORY Diagnosis Date Aortic valve disorders Aortic valve disorders-stenosis Diabetes mellitus (HCC) Diffuse cystic mastopathy Hypertension possibly d/t nuvaring Hypothyroid Irregular menstrual cycle Irregular periods Migraine without aura Peripheral vascular disease (HCC) PMH - PAST MEDICAL HISTORY OF glucose intolerance Unspecified asthma(493.90) as child PAST SURGICAL HISTORY Procedure Laterality Date DELIVERY ONLY 12/14/08 11/14/10 , low transverse DELIVERY ONLY 04/2013 COLONOSCOPY SCREENING 05/2020 HEART VALVE REPAIR HEART VALVE REPLACEMENT LAPS SURG CHOLECYSTECTOMY W/CHOLANGIOGRAPHY 02/24/2007 LIG/TRNSXJ FLP TUBE ABDL/VAG APPR UNI/BI 04/2013 Tubal ligation PAST SURGICAL HISTORY OF 1991 heart cath for suspected ASD PAST SURGICAL HISTORY OF wisdom teeth PAST SURGICAL HISTORY OF 11/18/2006 aortic valve re: assending aortic anneurysm stent placement PAST SURGICAL HISTORY OF needle breast BX PERIPHERAL VASCULAR INTERVENTION PRQ BALLOON VALVULOPLASTY AORTIC VALVE 1993 SHX AORTIC VALVE REPLACEMENT 06/2020 mechanical On-X TONSILLECTOMY HX Current Outpatient Medications Medication Sig Dispense Refill amLODIPine (NORVASC) 10 mg tablet Take 10 mg by mouth once daily. amoxicillin (AMOXIL) 500 mg capsule 500 mg. Pre dental work KARENAGLSALVATORE HORTA U-100 INSULIN 100 unit/mL (3 mL) Inject 44 Units subcutaneously daily at bedtime. losartan (COZAAR) 25 mg tablet Take 100 mg by mouth once daily. warfarin (COUMADIN) 5 mg tablet Take 2 tablets by mouth daily as directed. (Patient taking differently: Take 7 mg by mouth once daily. 12mg Sun, Tu, Th and Sat , Fri, Fri 11mg) 90 tablet 2 metoprolol succinate ER (TOPROL XL) 100 mg Take 100 mg by mouth once daily. montelukast (SINGULAIR) 10 mg tablet Take 10 mg by mouth daily at bedtime. omeprazole magnesium (PRILOSEC ORAL) Take 40 mg by mouth once daily. aspirin 81 mg chewable tablet Take 1 tablet by mouth once daily. 0 Levothyroxine 100 mcg cap Take 100 mcg by mouth once daily. MOUNJARO 5 mg/0.5 mL pen injector INJECT 0.5ML SUBCUTANEOUSLY ONCE A WEEK (Patient not taking: Reported on 01/20/2023) chlorthalidone (HYGROTON) 25 mg tablet Take 25 mg by mouth once daily. acetaminophen (TYLENOL EXTRA STRENGTH) 500 mg tablet Take 2 tablets by mouth every 6 hours as needed for Pain. (Patient not taking: Reported on 12/01/2020 ) 40 tablet 0 liraglutide (VICTOZA) 0.6 mg/ 0.1 ml subcutaneous pen injector Inject 1.8 mg subcutaneously once daily. metFORMIN (GLUCOPHAGE) 1,000 mg tablet Take 1 tablet by mouth twice daily with meals. (Patient taking differently: Take 1,000 mg by mouth once daily. ) 60 tablet 2 ascorbic acid, vitamin C, (VITAMIN C) 500 mg tablet Take 500 mg by mouth once daily. ferrous sulfate 325 mg (65 mg iron) tablet Take 325 mg by mouth daily with breakfast. No current facility-administered medications for this visit. ALLERGIES: Adhesive Tape (Rosins) and Sulfa (Sulfonamide Antibiotics) PERSONAL HISTORY: Social History Tobacco Use Smoking status: Never Smokeless tobacco: Never Vaping Use Vaping Use: Never used Substance Use Topics Alcohol use: No Drug use: No FAMILY HISTORY: FAMILY HISTORY Problem Relation Age of Onset Thyroid Mother Assending aortic anneurysm Hypertension Mother Aortic valve replacement Diabetes Mother Diabetes Father Hypertension Father Lipids Father Multiple Sclerosis Sister 30 Hypertension Brother Heart Maternal Grandmother a fib Emphysema Maternal Grandmother Osteoporosis Maternal Grandmother Prostate Cancer Maternal Grandfather Arthritis Maternal Grandfather Diabetes Paternal Grandfather Breast Cancer Maternal Aunt at age 47 Auto-Immune Disorder Maternal Aunt Lupus Cancer Paternal Uncle bile duct REVIEW OF SYMPTOMS: The review of systems data was entered by the nurse and reviewed by me Nursing Notes: Aundrea Andres LPN 01/20/2023 1:53 PM Signed REVIEW OF SYSTEMS: General: The patient denies fatigue, denies weight loss, denies weight gain, denies feeling hot, and denies feelings of cold. Eyes: The patient denies glaucoma, denies eye injury/surgery, wears glasses or contacts. Ear/Nose/Throat: The patient notes allergies, denies hayfever, denies ear infections, and denies bloody noses. Cardiovascular: The patient denies chest pain, denies heart disease, notes high blood pressure,denies cardiac stent, denies prior heart attack, denies irregular heart beat, denies high cholesterol, denies poor circulation, notes heart failure, other cardiac issues, denies claudication, denies cold feet, denies peripheral arterial stent. Respiratory: The patient denies tuberculosis, denies pneumonia, denies frequent cough, denies pulmonary embolism, denies shortness of breath, and denies coughing up blood, notes asthma. Gastrointestinal: The patient denies difficulty swallowing, notes acid reflux, denies ulcers, denies vomiting, denies jaundice/hepatitis, denies gallbladder problems, denies black or tarry stools, denies hemorrhoids, denies bleeding from rectum, denies diverticulitis, denies constipation, denies diarrhea, denies loss of stool control, and denies hernias. Kidney/Bladder: The patient denies kidney stones, denies urine infections, and denies bloody urine. Skin: The patient denies a history of skin cancer, notes bleeding/changing moles, and notes a history of skin rash. Neurologic: The patient denies a history of epilepsy/convulsions, notes headaches, denies head/spinal injuries, and denies stroke/TIA. Psychiatric: The patient denies psychiatric medications, denies depression, and denies voices, denies substance abuse. Endocrine: The patient notes thyroid disorders, notes diabetes, and denies hormonal problems. Hematologic: The patient denies a history of bruising, denies bleeding, and denies anemia, notes blood clots. Infections: The patient denies a history of measles and mumps, denies rheumatic fever, and denies sexually transmitted diseases. Musculoskeletal: The patient denies back pain/injury, denies back problems, denies sciatica, denies knee/foot trouble, denies arthritis, or denies gout. When was patient's last Mammogram screening? 01/2023 Last Colonoscopy: 05/2020 Aundrea Andres LPN PHYSICAL EXAMINATION: General: The patient is 37 year old female, well nourished, well hydrated in no acute distress. The patient is oriented to time, place, and person. VITALS: Blood pressure 130/72, pulse 72, temperature 36.1 C (97 F), height 170.2 cm (5' 7 ), weight 99.8 kg (220 lb), last menstrual period 09/29/2020, SpO2 99 %. Body mass index is 34.46 kg/m . HEENT: Normal cephalic, ataumatic, pupils are equally round, sclera are anicteric, mucous membranes are moist, oropharynx is clear. Neck has no masses, asymmetry or lymphadenopathy. Thyroid is unremarkable. Respiratory: Clear to auscultation and percussion. Normal respiratory excursion and pattern. Cardiac: Examination is regular rate and rhythm. Abdominal exam: Soft, nontender, with no palpable masses. No hepatosplenomegaly. No palpable hernias. Rectal exam: exam deferred Extremities: no clubbing, cyanosis or edema. No adenopathy. Breast: Visual inspection reveals no retractions, nipple inversion, or skin changes. Palpation of the right breast reveals no dominant or suspicious masses, but multiple benign-feeling nodules. Palpation of the left breast reveals no dominant or suspicious masses, but multiple benign-feeling nodules. Axillary exam demonstrates no suspicious masses in either the left or right axilla. There is no nipple discharge expressed from either the left or right breast. LABORATORY VALUES: As Noted RADIOLOGIC STUDIES: As Noted Assessment IMPRESSION: Abnormal mammogram (primary encounter diagnosis) PLAN: I plan to perform a ultrasound guided core biopsy of the right breast. The planned surgical procedure was discussed extensively with the patient. The risks, benefits, anticipated outcomes and possible complications were mentioned. My staff has also explained the procedure in understandable terms and the patient was given the option to take printed material concerning the planned procedure. The patient had the opportunity to ask questions concerning the planned procedure. The patient freely consents to the planned procedure. She will need to bridge off of her anticoagulation for this. Diagnoses: (R92.8) Abnormal mammogram (primary encounter diagnosis) A letter was sent to Dr. Jonas Sweet MD indicating the above finding for this patient. Return to Clinic: The patient is instructed to follow-up with me 1 week post operatively. Jasen Frank III, MD documented in this encounter [facility] 01-20-2023 Nurse Note REVIEW OF SYSTEMS: General: The patient denies fatigue, denies weight loss, denies weight gain, denies feeling hot, and denies feelings of cold. Eyes: The patient denies glaucoma, denies eye injury/surgery, wears glasses or contacts. Ear/Nose/Throat: The patient notes allergies, denies hayfever, denies ear infections, and denies bloody noses. Cardiovascular: The patient denies chest pain, denies heart disease, notes high blood pressure,denies cardiac stent, denies prior heart attack, denies irregular heart beat, denies high cholesterol, denies poor circulation, notes heart failure, other cardiac issues, denies claudication, denies cold feet, denies peripheral arterial stent. Respiratory: The patient denies tuberculosis, denies pneumonia, denies frequent cough, denies pulmonary embolism, denies shortness of breath, and denies coughing up blood, notes asthma. Gastrointestinal: The patient denies difficulty swallowing, notes acid reflux, denies ulcers, denies vomiting, denies jaundice/hepatitis, denies gallbladder problems, denies black or tarry stools, denies hemorrhoids, denies bleeding from rectum, denies diverticulitis, denies constipation, denies diarrhea, denies loss of stool control, and denies hernias. Kidney/Bladder: The patient denies kidney stones, denies urine infections, and denies bloody urine. Skin: The patient denies a history of skin cancer, notes bleeding/changing moles, and notes a history of skin rash. Neurologic: The patient denies a history of epilepsy/convulsions, notes headaches, denies head/spinal injuries, and denies stroke/TIA. Psychiatric: The patient denies psychiatric medications, denies depression, and denies voices, denies substance abuse. Endocrine: The patient notes thyroid disorders, notes diabetes, and denies hormonal problems. Hematologic: The patient denies a history of bruising, denies bleeding, and denies anemia, notes blood clots. Infections: The patient denies a history of measles and mumps, denies rheumatic fever, and denies sexually transmitted diseases. Musculoskeletal: The patient denies back pain/injury, denies back problems, denies sciatica, denies knee/foot trouble, denies arthritis, or denies gout. When was patient's last Mammogram screening? 01/2023 Last Colonoscopy: 05/2020 Aundrea Andres LPN documented in this encounter [facility] documented as of this encounter (statuses as of 01/22/2023) [facility] History of Past illness Narrative* Problem Noted Date Resolved Date Acute blood loss anemia 06/19/2020 06/21/20 Overview: See coordination of care note. 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 Garcia, now with yazmin Hgb and serum LDH with decrease in reticulocyte count, Dr. Garcia believes this has resolved. Also with h/o LUZ, on rx, normal pre-op H/H On mechanically assisted ventilation 05/26/2013 06/20/2020 Overview: extubated Pre-op testing 05/25/2013 06/15/2020 Overview: Images from the original note were not included. [facility] Surgeon: David Salcido M.D. Informed Consent Completed: yes STS Score: 0.771 CAD: No Is intended procedure a CABG: No - is a beta beatriz ordered? No - reason: not indicated H & P completed: Yes PA/LAT: Completed CT: Completed MRI: N/A LE US: N/A Cath: No Echo:Completed EKG: Completed EF %: 58 PI's: N/A Carotid: N/A Mapping: N/A Dental: Completed PFT's: N/A Basename 05/25/13 0950 WBC 7.97 HB 13.0 HCT 39.0 PLT 229 INR 0.9 CREAT 0.95 UA: Normal HCG:N/A ABO/ABO Confirmed: Yes Blood ordered: Yes SA Swab: Yes - results: Pending Last Dose of Anticoagulation: Aspirin Op Note: N/A Pacemaker Check: N/A Consults: none DM: No Cardiac Surgical prep: N/A SIGNATURE: Adeline Anaya CNP CHECKED BY: roseann DATE of SERVICE: 05/25/2013 TIME of SERVICE: 3:50 PM Supervision of other high-risk (V23.89) 05/06/2008 08/16/2009 Routine general medical exam ination at a [facility] care facility 09/25/2007 01/08/2012 Overview: PGF in 01-19: pt has not been back to the [facility] since that time LDL 84, HDL 37, TG 126 in - Creat 1 in - HCT 38.5% in 2-08 HCG 276 in 11-20: reportedly about 5 weeks Lab from 11-27-07 noted miscarriage documented as of this encounter (statuses as of 02/20/2023) [facility] History of Past illness Narrative* Problem Noted Date Resolved Date Acute blood loss anemia 06/19/2020 06/21/20 20 Overview: See coordination of care note. 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 Garcia, now with yazmin Hgb and serum LDH with decrease in reticulocyte count, Dr. Garcia believes this has resolved. Also with h/o LUZ, on rx, normal pre-op H/H On mechanically assisted ventilation 05/26/2013 06/20/2020 Overview: extubated Pre-op testing 05/25/2013 06/15/2020 Overview: Images from the original note were not included. [facility] PRE-OP [facility] Surgeon: David Salcido M.D. Informed Consent Completed: yes STS Score: 0.771 CAD: No Is intended procedure a CABG: No - is a beta beatriz ordered? No - reason: not indicated H & P completed: Yes PA/LAT: Completed CT: Completed MRI: N/A LE US: N/A Cath: No Echo:Completed EKG: Completed EF %: 58 PI's: N/A Carotid: N/A Mapping: N/A Dental: Completed PFT's: N/A Basename 05/25/13 0950 WBC 7.97 HB 13.0 HCT 39.0 PLT 229 INR 0.9 CREAT 0.95 UA: Normal HCG:N/A ABO/ABO Confirmed: Yes Blood ordered: Yes SA Swab: Yes - results: Pending Last Dose of Anticoagulation: Aspirin Op Note: N/A Pacemaker Check: N/A Consults: none DM: No Cardiac Surgical prep: N/A SIGNATURE: Adeline Anaya CNP CHECKED BY: roseann DATE of SERVICE: 05/25/2013 TIME of SERVICE: 3:50 PM Supervision of other high-risk (V23.89) 05/06/2008 08/16/2009 Routine general medical exam ination at a health care facility 09/25/2007 01/08/2012 Overview: PGF in 01-19: pt has not been back to the [facility] since that time LDL 84, HDL 37, TG 126 in - Creat 1 in -08 HCT 38.5% in 2-08 HCG 276 in 11-20: reportedly about 5 weeks Lab from 11-27-07 noted miscarriage documented as of this encounter (statuses as of 02/14/2023) [facility] History of Past illness Narrative* Problem Noted Date Resolved Date Acute blood loss anemia 06/19/2020 06/21/20 20 Overview: See coordination of care note. 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 Garcia, now with yazmin Hgb and serum LDH with decrease in reticulocyte count, Dr. Garcia believes this has resolved. Also with h/o LUZ, on rx, normal pre-op H/H On mechanically assisted ventilation 05/26/2013 06/20/2020 Overview: extubated Pre-op testing 05/25/2013 06/15/2020 Overview: Images from the original note were not included. [facility] PRE[facility]LIST Surgeon: David Salcido M.D. Informed Consent Completed: yes STS Score: 0.771 CAD: No Is intended procedure a CABG: No - is a beta beatriz ordered? No - reason: not indicated H & P completed: Yes PA/LAT: Completed CT: Completed MRI: N/A LE US: N/A Cath: No Echo:Completed EKG: Completed EF %: 58 PI's: N/A Carotid: N/A Mapping: N/A Dental: Completed PFT's: N/A Basename 05/25/13 0950 WBC 7.97 HB 13.0 HCT 39.0 PLT 229 INR 0.9 CREAT 0.95 UA: Normal HCG:N/A ABO/ABO Confirmed: Yes Blood ordered: Yes SA Swab: Yes - results: Pending Last Dose of Anticoagulation: Aspirin Op Note: N/A Pacemaker Check: N/A Consults: none DM: No Cardiac Surgical prep: N/A SIGNATURE: Adeline Anaya CNP CHECKED BY: roseann DATE of SERVICE: 05/25/2013 TIME of SERVICE: 3:50 PM Supervision of other high-risk (V23.89) 05/06/2008 08/16/2009 Routine general medical exam ination at a health care facility 09/25/2007 01/08/2012 Overview: PGF in 01-19: pt has not been back to the [facility] since that time LDL 84, HDL 37, TG 126 in - Creat 1 in - HCT 38.5% in 2- HCG 276 in 3-08: reportedly about 5 weeks Lab from 11-27-07 noted miscarriage documented as of this encounter (statuses as of 02/17/2023) [facility] History of Past illness Narrative* Problem Noted Date Resolved Date Acute blood loss anemia 06/19/2020 06/21/20 Overview: See coordination of care note. 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 Garcia, now with yazmin Hgb and serum LDH with decrease in reticulocyte count, Dr. Garcia believes this has resolved. Also with h/o LUZ, on rx, normal pre-op H/H On mechanically assisted ventilation 05/26/2013 06/20/2020 Overview: extubated Pre-op testing 05/25/2013 06/15/2020 Overview: Images from the original note were not included. [facility] VASCULAR [facility] Surgeon: David Salcido M.D. Informed Consent Completed: yes STS Score: 0.771 CAD: No Is intended procedure a CABG: No - is a beta beatriz ordered? No - reason: not indicated H & P completed: Yes PA/LAT: Completed CT: Completed MRI: N/A LE US: N/A Cath: No Echo:Completed EKG: Completed EF %: 58 PI's: N/A Carotid: N/A Mapping: N/A Dental: Completed PFT's: N/A Basename 05/25/13 0950 WBC 7.97 HB 13.0 HCT 39.0 PLT 229 INR 0.9 CREAT 0.95 UA: Normal HCG:N/A ABO/ABO Confirmed: Yes Blood ordered: Yes SA Swab: Yes - results: Pending Last Dose of Anticoagulation: Aspirin Op Note: N/A Pacemaker Check: N/A Consults: none DM: No Cardiac Surgical prep: N/A SIGNATURE: Adeline Anaya CNP CHECKED BY: [email or web address] DATE of SERVICE: 05/25/2013 TIME of SERVICE: 3:50 PM Supervision of other high-risk (V23.89) 05/06/2008 08/16/2009 Routine general medical exam ination at a health care facility 09/25/2007 01/08/2012 Overview: PGF in 01-19: pt has not been back to the conduit [facility] since that time LDL 84, HDL 37, TG 126 in 10-23 Creat 1 in 10-23 HCT 38.5% in 10-23 HCG 276 in 11-20: reportedly about 5 weeks Lab from 11-27-07 noted miscarriage documented as of this encounter (statuses as of 02/18/2023) [facility]10-05-2020 History of Past illness Narrative* Problem Noted Date Resolved Date Acute blood loss anemia 06/19/2020 06/21/20 Overview: See coordination of care note. 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 Garcia, now with yazmin Hgb and serum LDH with decrease in reticulocyte count, Dr. Garcia believes this has resolved. Also with h/o LUZ, on rx, normal pre-op H/H On mechanically assisted ventilation 05/26/2013 06/20/2020 Overview: extubated Pre-op testing 05/25/2013 06/15/2020 Overview: Images from the original note were not included. [facility] Surgeon: David Salcido M.D. Informed Consent Completed: yes STS Score: 0.771 CAD: No Is intended procedure a CABG: No - is a beta beatriz ordered? No - reason: not indicated H & P completed: Yes PA/LAT: Completed CT: Completed MRI: N/A LE US: N/A Cath: No Echo:Completed EKG: Completed EF %: 58 PI's: N/A Carotid: N/A Mapping: N/A Dental: Completed PFT's: N/A Basename 05/25/13 0950 WBC 7.97 HB 13.0 HCT 39.0 PLT 229 INR 0.9 CREAT 0.95 UA: Normal HCG:N/A ABO/ABO Confirmed: Yes Blood ordered: Yes SA Swab: Yes - results: Pending Last Dose of Anticoagulation: Aspirin Op Note: N/A Pacemaker Check: N/A Consults: none DM: No Cardiac Surgical prep: N/A SIGNATURE: Adeline Anaya CNP CHECKED BY: [email or web address] DATE of SERVICE: 05/25/2013 TIME of SERVICE: 3:50 PM Supervision of other high-risk (V23.89) 05/06/2008 08/16/2009 Routine general medical exam ination at a health care facility 09/25/2007 01/08/2012 Overview: PGF in 01-19: pt has not been back to the conduit helper since that time LDL 84, HDL 37, TG 126 in 10-23 Creat 1 in 10-23 HCT 38.5% in 10-23 HCG 276 in 11-20: reportedly about 5 weeks Lab from 11-27-07 noted miscarriage documented as of this encounter (statuses as of 02/19/2023) [facility]10-[facility]2020 History of Past illness Narrative* Problem Noted Date Resolved Date Acute blood loss anemia 06/19/2020 06/21/20 Overview: See coordination of care note. 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 Garcia, now with yazmin Hgb and serum LDH with decrease in reticulocyte count, Dr. Garcia believes this has resolved. Also with h/o LUZ, on rx, normal pre-op H/H On mechanically assisted ventilation 05/26/2013 06/20/2020 Overview: extubated Pre-op testing 05/25/2013 06/15/2020 Overview: Images from the original note were not included. [facility] Surgeon: David Salcido M.D. Informed Consent Completed: yes STS Score: 0.771 CAD: No Is intended procedure a CABG: No - is a beta beatriz ordered? No - reason: not indicated H & P completed: Yes PA/LAT: Completed CT: Completed MRI: N/A LE US: N/A Cath: No Echo:Completed EKG: Completed EF %: 58 PI's: N/A Carotid: N/A Mapping: N/A Dental: Completed PFT's: N/A Basename 05/25/13 0950 WBC 7.97 HB 13.0 HCT 39.0 PLT 229 INR 0.9 CREAT 0.95 UA: Normal HCG:N/A ABO/ABO Confirmed: Yes Blood ordered: Yes SA Swab: Yes - results: Pending Last Dose of Anticoagulation: Aspirin Op Note: N/A Pacemaker Check: N/A Consults: none DM: No Cardiac Surgical prep: N/A SIGNATURE: Adeline Anaya CNP CHECKED BY: roseann DATE of SERVICE: 05/25/2013 TIME of SERVICE: 3:50 PM Supervision of other high-risk (V23.89) 05/06/2008 08/16/2009 Routine general medical exam ination at a health care facility 09/25/2007 01/08/2012 Overview: PGF in 01-19: pt has not been back to the conduit helper since that time LDL 84, HDL 37, TG 126 in - Creat 1 in - HCT 38.5% in 2-08 HCG 276 in 11-20: reportedly about 5 weeks Lab from 11-27-07 noted miscarriage documented as of this encounter (statuses as of 02/28/2023) [facility]10-[facility] History of Past illness Narrative* Problem Noted Date Resolved Date Acute blood loss anemia 06/19/2020 06/21/20 20 Overview: See coordination of care note. 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 Garcia, now with yazmin Hgb and serum LDH with decrease in reticulocyte count, Dr. Garcia believes this has resolved. Also with h/o LUZ, on rx, normal pre-op H/H On mechanically assisted ventilation 05/26/2013 06/20/2020 Overview: extubated Pre-op testing 05/25/2013 06/15/2020 Overview: Images from the original note were not included. [facility] Surgeon: David Salcido M.D. Informed Consent Completed: yes STS Score: 0.771 CAD: No Is intended procedure a CABG: No - is a beta beatriz ordered? No - reason: not indicated H & P completed: Yes PA/LAT: Completed CT: Completed MRI: N/A LE US: N/A Cath: No Echo:Completed EKG: Completed EF %: 58 PI's: N/A Carotid: N/A Mapping: N/A Dental: Completed PFT's: N/A Basename 05/25/13 0950 WBC 7.97 HB 13.0 HCT 39.0 PLT 229 INR 0.9 CREAT 0.95 UA: Normal HCG:N/A ABO/ABO Confirmed: Yes Blood ordered: Yes SA Swab: Yes - results: Pending Last Dose of Anticoagulation: Aspirin Op Note: N/A Pacemaker Check: N/A Consults: none DM: No Cardiac Surgical prep: N/A SIGNATURE: Adeline Anaya CNP CHECKED BY: [email or web address] DATE of SERVICE: 05/25/2013 TIME of SERVICE: 3:50 PM Supervision of other high-risk (V23.89) 05/06/2008 08/16/2009 Routine general medical exam ination at a health care facility 09/25/2007 01/08/2012 Overview: PGF in 01-19: pt has not been back to the conduit helper since that time LDL 84, HDL 37, TG 126 in 2-08 Creat 1 in -08 HCT 38.5% in 2- HCG 276 in -: reportedly about 5 weeks Lab from 11-27-07 noted miscarriage documented as of this encounter (statuses as of 03/06/2023) [facility]10-[facility]2020 History of Past illness Narrative* Problem Noted Date Resolved Date Acute blood loss anemia 06/19/2020 06/21/20 Overview: See coordination of care note. 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 Garcia, now with yazmin Hgb and serum LDH with decrease in reticulocyte count, Dr. Garcia believes this has resolved. Also with h/o LUZ, on rx, normal pre-op H/H On mechanically assisted ventilation 05/26/2013 06/20/2020 Overview: extubated Pre-op testing 05/25/2013 06/15/2020 Overview: Images from the original note were not included. [facility] Surgeon: David Salcido M.D. Informed Consent Completed: yes STS Score: 0.771 CAD: No Is intended procedure a CABG: No - is a beta beatriz ordered? No - reason: not indicated H & P completed: Yes PA/LAT: Completed CT: Completed MRI: N/A LE US: N/A Cath: No Echo:Completed EKG: Completed EF %: 58 PI's: N/A Carotid: N/A Mapping: N/A Dental: Completed PFT's: N/A Basename 05/25/13 0950 WBC 7.97 HB 13.0 HCT 39.0 PLT 229 INR 0.9 CREAT 0.95 UA: Normal HCG:N/A ABO/ABO Confirmed: Yes Blood ordered: Yes SA Swab: Yes - results: Pending Last Dose of Anticoagulation: Aspirin Op Note: N/A Pacemaker Check: N/A Consults: none DM: No Cardiac Surgical prep: N/A SIGNATURE: Adeline Anaya CNP CHECKED BY: [email or web address] DATE of SERVICE: 05/25/2013 TIME of SERVICE: 3:50 PM Supervision of other high-risk (V23.89) 05/06/2008 08/16/2009 Routine general medical exam ination at a health care facility 09/25/2007 01/08/2012 Overview: PGF in 01-19: pt has not been back to the conduit helper since that time LDL 84, HDL 37, TG 126 in 10-23 Creat 1 in 10-23 HCT 38.5% in 10-23 HCG 276 in 11-20: reportedly about 5 weeks Lab from 11-27-07 noted miscarriage documented as of this encounter (statuses as of 03/07/2023) [facility] History of Past illness Narrative* Problem Noted Date Resolved Date Acute blood loss anemia 06/19/2020 06/21/20 Overview: See coordination of care note. 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 Garcia, now with yazmin Hgb and serum LDH with decrease in reticulocyte count, Dr. Garcia believes this has resolved. Also with h/o LUZ, on rx, normal pre-op H/H On mechanically assisted ventilation 05/26/2013 06/20/2020 Overview: extubated Pre-op testing 05/25/2013 06/15/2020 Overview: Images from the original note were not included. [facility] Surgeon: David Salcido M.D. Informed Consent Completed: yes STS Score: 0.771 CAD: No Is intended procedure a CABG: No - is a beta beatriz ordered? No - reason: not indicated H & P completed: Yes PA/LAT: Completed CT: Completed MRI: N/A LE US: N/A Cath: No Echo:Completed EKG: Completed EF %: 58 PI's: N/A Carotid: N/A Mapping: N/A Dental: Completed PFT's: N/A Basename 05/25/13 0950 WBC 7.97 HB 13.0 HCT 39.0 PLT 229 INR 0.9 CREAT 0.95 UA: Normal HCG:N/A ABO/ABO Confirmed: Yes Blood ordered: Yes SA Swab: Yes - results: Pending Last Dose of Anticoagulation: Aspirin Op Note: N/A Pacemaker Check: N/A Consults: none DM: No Cardiac Surgical prep: N/A SIGNATURE: Adeline Anaya CNP CHECKED BY: [email or web address] DATE of SERVICE: 05/25/2013 TIME of SERVICE: 3:50 PM Supervision of other high-risk (V23.89) 05/06/2008 08/16/2009 Routine general medical exam ination at a health care facility 09/25/2007 01/08/2012 Overview: PGF in 01-19: pt has not been back to the conduit helper since that time LDL 84, HDL 37, TG 126 in 10-23 Creat 1 in 10-23 HCT 38.5% in 10-23 HCG 276 in 11-20: reportedly about 5 weeks Lab from 11-27-07 noted miscarriage documented as of this encounter (statuses as of 03/13/2023) [facility] History of Past illness Narrative* Problem Noted Date Resolved Date Acute blood loss anemia 06/19/2020 06/21/20 20 Overview: See coordination of care note. 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 Garcia, now with yazmin Hgb and serum LDH with decrease in reticulocyte count, Dr. Garcia believes this has resolved. Also with h/o LUZ, on rx, normal pre-op H/H On mechanically assisted ventilation 05/26/2013 06/20/2020 Overview: extubated Pre-op testing 05/25/2013 06/15/2020 Overview: Images from the original note were not included. [facility] Surgeon: David Salcido M.D. Informed Consent Completed: yes STS Score: 0.771 CAD: No Is intended procedure a CABG: No - is a beta beatriz ordered? No - reason: not indicated H & P completed: Yes PA/LAT: Completed CT: Completed MRI: N/A LE US: N/A Cath: No Echo:Completed EKG: Completed EF %: 58 PI's: N/A Carotid: N/A Mapping: N/A Dental: Completed PFT's: N/A Basename 05/25/13 0950 WBC 7.97 HB 13.0 HCT 39.0 PLT 229 INR 0.9 CREAT 0.95 UA: Normal HCG:N/A ABO/ABO Confirmed: Yes Blood ordered: Yes SA Swab: Yes - results: Pending Last Dose of Anticoagulation: Aspirin Op Note: N/A Pacemaker Check: N/A Consults: none DM: No Cardiac Surgical prep: N/A SIGNATURE: Adeline Anaya CNP CHECKED BY: [email or web address] DATE of SERVICE: 05/25/2013 TIME of SERVICE: 3:50 PM Supervision of other high-risk (V23.89) 05/06/2008 08/16/2009 Routine general medical exam ination at a health care facility 09/25/2007 01/08/2012 Overview: PGF in 01-19: pt has not been back to the conduit helper since that time LDL 84, HDL 37, TG 126 in 10-23 Creat 1 in 10-23 HCT 38.5% in 2- HCG 276 in 11-20: reportedly about 5 weeks Lab from 11-27-07 noted miscarriage documented as of this encounter (statuses as of 03/14/2023) [facility] History of Past illness Narrative* Problem Noted Date Resolved Date Acute blood loss anemia 06/19/2020 06/21/20 Overview: See coordination of care note. 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 Garcia, now with yazmin Hgb and serum LDH with decrease in reticulocyte count, Dr. Garcia believes this has resolved. Also with h/o LUZ, on rx, normal pre-op H/H On mechanically assisted ventilation 05/26/2013 06/20/2020 Overview: extubated Pre-op testing 05/25/2013 06/15/2020 Overview: Images from the original note were not included. [facility] Surgeon: David Salcido M.D. Informed Consent Completed: yes STS Score: 0.771 CAD: No Is intended procedure a CABG: No - is a beta beatriz ordered? No - reason: not indicated H & P completed: Yes PA/LAT: Completed CT: Completed MRI: N/A LE US: N/A Cath: No Echo:Completed EKG: Completed EF %: 58 PI's: N/A Carotid: N/A Mapping: N/A Dental: Completed PFT's: N/A Basename 09/10/13 0950 WBC 7.97 HB 13.0 HCT 39.0 PLT 229 INR 0.9 CREAT 0.95 UA: Normal HCG:N/A ABO/ABO Confirmed: Yes Blood ordered: Yes SA Swab: Yes - results: Pending Last Dose of Anticoagulation: Aspirin Op Note: N/A Pacemaker Check: N/A Consults: none DM: No Cardiac Surgical prep: N/A SIGNATURE: Adeline Anaya CNP CHECKED BY: [email or web address] DATE of SERVICE: 05/25/2013 TIME of SERVICE: 3:50 PM Supervision of other high-risk (V23.89) 05/06/2008 08/16/2009 Routine general medical exam ination at a health care facility 09/25/2007 01/08/2012 Overview: PGF in 01-19: pt has not been back to the conduit helper since that time LDL 84, HDL 37, TG 126 in 10-23 Creat 1 in 10-23 HCT 38.5% in - HCG 276 in 11-20: reportedly about 5 weeks Lab from 11-27-07 noted miscarriage documented as of this encounter (statuses as of 03/14/2023) [facility] History of Past illness Narrative* Problem Noted Date Resolved Date Acute blood loss anemia 06/19/2020 06/21/20 Overview: See coordination of care note. 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 Garcia, now with yazmin Hgb and serum LDH with decrease in reticulocyte count, Dr. Garcia believes this has resolved. Also with h/o LUZ, on rx, normal pre-op H/H On mechanically assisted ventilation 05/26/2013 06/20/2020 Overview: extubated Pre-op testing 05/25/2013 06/15/2020 Overview: Images from the original note were not included. [facility] Surgeon: David Salcido M.D. Informed Consent Completed: yes STS Score: 0.771 CAD: No Is intended procedure a CABG: No - is a beta beatriz ordered? No - reason: not indicated H & P completed: Yes PA/LAT: Completed CT: Completed MRI: N/A LE US: N/A Cath: No Echo:Completed EKG: Completed EF %: 58 PI's: N/A Carotid: N/A Mapping: N/A Dental: Completed PFT's: N/A Basename 05/25/13 0950 WBC 7.97 HB 13.0 HCT 39.0 PLT 229 INR 0.9 CREAT 0.95 UA: Normal HCG:N/A ABO/ABO Confirmed: Yes Blood ordered: Yes SA Swab: Yes - results: Pending Last Dose of Anticoagulation: Aspirin Op Note: N/A Pacemaker Check: N/A Consults: none DM: No Cardiac Surgical prep: N/A SIGNATURE: Adeline Anaya CNP CHECKED BY: [email or web address] DATE of SERVICE: 05/25/2013 TIME of SERVICE: 3:50 PM Supervision of other high-risk (V23.89) 05/06/2008 08/16/2009 Routine general medical exam ination at a [facility] care facility 09/25/2007 01/08/2012 Overview: PGF in 01-19: pt has not been back to the conduit helper since that time LDL 84, HDL 37, TG 126 in 2-08 Creat 1 in 2-08 HCT 38.5% in 2-08 HCG 276 in 3-: reportedly about 5 weeks Lab from 11-27-07 noted miscarriage documented as of this encounter (statuses as of 03/16/2023) [facility] History of Past illness Narrative* Problem Noted Date Resolved Date Acute blood loss anemia 06/19/2020 06/21/20 Overview: See coordination of care note. 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 Garcia, now with yazmin Hgb and serum LDH with decrease in reticulocyte count, Dr. Garcia believes this has resolved. Also with h/o LUZ, on rx, normal pre-op H/H On mechanically assisted ventilation 05/26/2013 06/20/2020 Overview: extubated Pre-op testing 05/25/2013 06/15/2020 Overview: Images from the original note were not included. [facility] Surgeon: David Salcido M.D. Informed Consent Completed: yes STS Score: 0.771 CAD: No Is intended procedure a CABG: No - is a beta beatriz ordered? No - reason: not indicated H & P completed: Yes PA/LAT: Completed CT: Completed MRI: N/A LE US: N/A Cath: No Echo:Completed EKG: Completed EF %: 58 PI's: N/A Carotid: N/A Mapping: N/A Dental: Completed PFT's: N/A Basename 05/25/13 0950 WBC 7.97 HB 13.0 HCT 39.0 PLT 229 INR 0.9 CREAT 0.95 UA: Normal HCG:N/A ABO/ABO Confirmed: Yes Blood ordered: Yes SA Swab: Yes - results: Pending Last Dose of Anticoagulation: Aspirin Op Note: N/A Pacemaker Check: N/A Consults: none DM: No Cardiac Surgical prep: N/A SIGNATURE: Adeline Anaya CNP CHECKED BY: [email or web address] DATE of SERVICE: 05/25/2013 TIME of SERVICE: 3:50 PM Supervision of other high-risk (V23.89) 05/06/2008 08/16/2009 Routine general medical exam ination at a health care facility 09/25/2007 01/08/2012 Overview: PGF in 01-19: pt has not been back to the conduit helper since that time LDL 84, HDL 37, TG 126 in 10-23 Creat 1 in 10-23 HCT 38.5% in - HCG 276 in 11-20: reportedly about 5 weeks Lab from 11-27-07 noted miscarriage documented as of this encounter (statuses as of 03/18/2023) [facility] History of Past illness Narrative* Problem Noted Date Resolved Date Acute blood loss anemia 06/19/2020 06/21/20 20 Overview: See coordination of care note. 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 Garcia, now with yazmin Hgb and serum LDH with decrease in reticulocyte count, Dr. Garcia believes this has resolved. Also with h/o LUZ, on rx, normal pre-op H/H On mechanically assisted ventilation 05/26/2013 06/20/2020 Overview: extubated Pre-op testing 05/25/2013 06/15/2020 Overview: Images from the original note were not included. [facility] Surgeon: David Salcido M.D. Informed Consent Completed: yes STS Score: 0.771 CAD: No Is intended procedure a CABG: No - is a beta beatriz ordered? No - reason: not indicated H & P completed: Yes PA/LAT: Completed CT: Completed MRI: N/A LE US: N/A Cath: No Echo:Completed EKG: Completed EF %: 58 PI's: N/A Carotid: N/A Mapping: N/A Dental: Completed PFT's: N/A Basename 05/25/13 0950 WBC 7.97 HB 13.0 HCT 39.0 PLT 229 INR 0.9 CREAT 0.95 UA: Normal HCG:N/A ABO/ABO Confirmed: Yes Blood ordered: Yes SA Swab: Yes - results: Pending Last Dose of Anticoagulation: Aspirin Op Note: N/A Pacemaker Check: N/A Consults: none DM: No Cardiac Surgical prep: N/A SIGNATURE: Adeline Anaya CNP CHECKED BY: [email or web address] DATE of SERVICE: 05/25/2013 TIME of SERVICE: 3:50 PM Supervision of other high-risk (V23.89) 05/06/2008 08/16/2009 Routine general medical exam ination at a health care facility 09/25/2007 01/08/2012 Overview: PGF in 01-19: pt has not been back to the conduit helper since that time LDL 84, HDL 37, TG 126 in - Creat 1 in - HCT 38.5% in 2-08 HCG 276 in 11-20: reportedly about 5 weeks Lab from 11-27-07 noted miscarriage documented as of this encounter (statuses as of 03/21/2023) [facility] History of Past illness Narrative* Problem Noted Date Resolved Date Acute blood loss anemia 06/19/2020 06/21/20 Overview: See coordination of care note. 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 Garcia, now with yazmin Hgb and serum LDH with decrease in reticulocyte count, Dr. Garcia believes this has resolved. Also with h/o LUZ, on rx, normal pre-op H/H On mechanically assisted ventilation 05/26/2013 06/20/2020 Overview: extubated Pre-op testing 05/25/2013 06/15/2020 Overview: Images from the original note were not included. [facility] Surgeon: David Salcido M.D. Informed Consent Completed: yes STS Score: 0.771 CAD: No Is intended procedure a CABG: No - is a beta beatriz ordered? No - reason: not indicated H & P completed: Yes PA/LAT: Completed CT: Completed MRI: N/A LE US: N/A Cath: No Echo:Completed EKG: Completed EF %: 58 PI's: N/A Carotid: N/A Mapping: N/A Dental: Completed PFT's: N/A Basename 05/25/13 0950 WBC 7.97 HB 13.0 HCT 39.0 PLT 229 INR 0.9 CREAT 0.95 UA: Normal HCG:N/A ABO/ABO Confirmed: Yes Blood ordered: Yes SA Swab: Yes - results: Pending Last Dose of Anticoagulation: Aspirin Op Note: N/A Pacemaker Check: N/A Consults: none DM: No Cardiac Surgical prep: N/A SIGNATURE: Adeline Anaya CNP CHECKED BY: [email or web address] DATE of SERVICE: 05/25/2013 TIME of SERVICE: 3:50 PM Supervision of other high-risk (V23.89) 05/06/2008 08/16/2009 Routine general medical exam ination at a health care facility 09/25/2007 01/08/2012 Overview: PGF in 01-19: pt has not been back to the conduit helper since that time LDL 84, HDL 37, TG 126 in 10-23 Creat 1 in 10-23 HCT 38.5% in 10-23 HCG 276 in 11-20: reportedly about 5 weeks Lab from 11-27-07 noted miscarriage documented as of this encounter (statuses as of 03/21/2023) [facility] History of Past illness Narrative* Problem Noted Date Diagnosed Date Resolved Date Acute blood loss anemia 06/19/202003/2020 Overview: See coordination of care note. 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 Garcia, now with yazmin Hgb and serum LDH with decrease in reticulocyte count, Dr. Garcia believes this has resolved. Also with h/o LUZ, on rx, normal pre-op H/H On mechanically assisted ventilation 05/26/2013 06/20/2020 Overview: extubated Pre-op testing 05/25/2013 06/15/2020 Overview: Images from the original note were not included. [facility] Surgeon: David Salcido M.D. Informed Consent Completed: yes STS Score: 0.771 CAD: No Is intended procedure a CABG: No - is a beta beatriz ordered? No - reason: not indicated H & P completed: Yes PA/LAT: Completed CT: Completed MRI: N/A LE US: N/A Cath: No Echo:Completed EKG: Completed EF %: 58 PI's: N/A Carotid: N/A Mapping: N/A Dental: Completed PFT's: N/A Basename 05/25/13 0950 WBC 7.97 HB 13.0 HCT 39.0 PLT 229 INR 0.9 CREAT 0.95 UA: Normal HCG:N/A ABO/ABO Confirmed: Yes Blood ordered: Yes SA Swab: Yes - results: Pending Last Dose of Anticoagulation: Aspirin Op Note: N/A Pacemaker Check: N/A Consults: none DM: No Cardiac Surgical prep: N/A SIGNATURE: Adeline Anaya CNP CHECKED BY: [email or web address] DATE of SERVICE: 05/25/2013 TIME of SERVICE: 3:50 PM Supervision of other high-ri sk (V23.89) 05/06/2008 08/16/2009 Routine general medical exam ination at a health care facility 09/25/2007 01/08/2012 Overview: PGF in 01-19: pt has not been back to the conduit helper since that time LDL 84, HDL 37, TG 126 in 10-23 Creat 1 in 10-23 HCT 38.5% in 10-23 HCG 276 in 11-20: reportedly about 5 weeks Lab from 11-27-07 noted miscarriage documented as of this encounter (statuses as of 03/28/2023) [facility] History of Past illness Narrative* Problem Noted Date Diagnosed Date Resolved Date Acute blood loss anemia 06/19/202003/2020 Overview: See coordination of care note. 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 Garcia, now with yazmin Hgb and serum LDH with decrease in reticulocyte count, Dr. Garcia believes this has resolved. Also with h/o LUZ, on rx, normal pre-op H/H On mechanically assisted ventilation 05/26/2013 06/20/2020 Overview: extubated Pre-op testing 05/25/2013 06/15/2020 Overview: Images from the original note were not included. [facility] Surgeon: David Salcido M.D. Informed Consent Completed: yes STS Score: 0.771 CAD: No Is intended procedure a CABG: No - is a beta beatriz ordered? No - reason: not indicated H & P completed: Yes PA/LAT: Completed CT: Completed MRI: N/A LE US: N/A Cath: No Echo:Completed EKG: Completed EF %: 58 PI's: N/A Carotid: N/A Mapping: N/A Dental: Completed PFT's: N/A Basename 05/25/13 0950 WBC 7.97 HB 13.0 HCT 39.0 PLT 229 INR 0.9 CREAT 0.95 UA: Normal HCG:N/A ABO/ABO Confirmed: Yes Blood ordered: Yes SA Swab: Yes - results: Pending Last Dose of Anticoagulation: Aspirin Op Note: N/A Pacemaker Check: N/A Consults: none DM: No Cardiac Surgical prep: N/A SIGNATURE: Adeline Anaya CNP CHECKED BY: [email or web address] DATE of SERVICE: 05/25/2013 TIME of SERVICE: 3:50 PM Supervision of other [facility] (V23.89) 05/06/2008 08/16/2009 Routine general medical exam ination at a health care facility 09/25/2007 01/08/2012 Overview: PGF in 01-19: pt has not been back to the conduit helper since that time LDL 84, HDL 37, TG 126 in - Creat 1 in -08 HCT 38.5% in - HCG 276 in 11-20: reportedly about 5 weeks Lab from 11-27-07 noted miscarriage documented as of this encounter (statuses as of 04/10/2023) [facility]10-05-2020 History of Past illness Narrative* Problem Noted Date Diagnosed Date Resolved Date Acute blood loss anemia 06/19/202003/2020 Overview: See coordination of care note. 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 Garcia, now with yazmin Hgb and serum LDH with decrease in reticulocyte count, Dr. Garcia believes this has resolved. Also with h/o LUZ, on rx, normal pre-op H/H On mechanically assisted ventilation 05/26/2013 06/20/2020 Overview: extubated Pre-op testing 05/25/2013 06/15/2020 Overview: Images from the original note were not included. [facility] Surgeon: David Salcido M.D. Informed Consent Completed: yes STS Score: 0.771 CAD: No Is intended procedure a CABG: No - is a beta beatriz ordered? No - reason: not indicated H & P completed: Yes PA/LAT: Completed CT: Completed MRI: N/A LE US: N/A Cath: No Echo:Completed EKG: Completed EF %: 58 PI's: N/A Carotid: N/A Mapping: N/A Dental: Completed PFT's: N/A Basename 05/25/13 0950 WBC 7.97 HB 13.0 HCT 39.0 PLT 229 INR 0.9 CREAT 0.95 UA: Normal HCG:N/A ABO/ABO Confirmed: Yes Blood ordered: Yes SA Swab: Yes - results: Pending Last Dose of Anticoagulation: Aspirin Op Note: N/A Pacemaker Check: N/A Consults: none DM: No Cardiac Surgical prep: N/A SIGNATURE: Adeline Anaya CNP CHECKED BY: [email or web address] DATE of SERVICE: 05/25/2013 TIME of SERVICE: 3:50 PM Supervision of other [facility] (V23.89) 05/06/2008 08/16/2009 Routine general medical exam ination at a health care facility 09/25/2007 01/08/2012 Overview: PGF in 01-19: pt has not been back to the conduit [facility] since that time LDL 84, HDL 37, TG 126 in 2- Creat 1 in 2-08 HCT 38.5% in 2-08 HCG 276 in 3-: reportedly about 5 weeks Lab from 11-27-07 noted miscarriage documented as of this encounter (statuses as of 04/16/2023) [facility]10-05-2020 History of Past illness Narrative* Problem Noted Date Diagnosed Date Resolved Date Acute blood loss anemia 06/19/2020 1003/2020 Overview: See coordination of care note. 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 Garcia, now with yazmin Hgb and serum LDH with decrease in reticulocyte count, Dr. Garcia believes this has resolved. Also with h/o LUZ, on rx, normal pre-op H/H On mechanically assisted ventilation 05/26/2013 06/20/2020 Overview: extubated Pre-op testing 05/25/2013 06/15/2020 Overview: Images from the original note were not included. [facility] Surgeon: David Salcido M.D. Informed Consent Completed: yes STS Score: 0.771 CAD: No Is intended procedure a CABG: No - is a beta beatriz ordered? No - reason: not indicated H & P completed: Yes PA/LAT: Completed CT: Completed MRI: N/A LE US: N/A Cath: No Echo:Completed EKG: Completed EF %: 58 PI's: N/A Carotid: N/A Mapping: N/A Dental: Completed PFT's: N/A Basename 05/25/13 0950 WBC 7.97 HB 13.0 HCT 39.0 PLT 229 INR 0.9 CREAT 0.95 UA: Normal HCG:N/A ABO/ABO Confirmed: Yes Blood ordered: Yes SA Swab: Yes - results: Pending Last Dose of Anticoagulation: Aspirin Op Note: N/A Pacemaker Check: N/A Consults: none DM: No Cardiac Surgical prep: N/A SIGNATURE: Adeline Anaya CNP CHECKED BY: roseann DATE of SERVICE: 05/25/2013 TIME of SERVICE: 3:50 PM Supervision of other [facility] (V23.89) 05/06/2008 08/16/2009 Routine general medical exam ination at a health care facility 09/25/2007 01/08/2012 Overview: PGF in 01-19: pt has not been back to the conduit helper since that time LDL 84, HDL 37, TG 126 in 10-23 Creat 1 in 10-23 HCT 38.5% in 10-23 HCG 276 in 11-20: reportedly about 5 weeks Lab from 11-27-07 noted miscarriage documented as of this encounter (statuses as of 04/18/2023) [facility]10-[facility]2020 History of Past illness Narrative* Problem Noted Date Diagnosed Date Resolved Date Acute blood loss anemia 06/19/202003/2020 Overview: See coordination of care note. 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 Garcia, now with yazmin Hgb and serum LDH with decrease in reticulocyte count, Dr. Garcia believes this has resolved. Also with h/o LUZ, on rx, normal pre-op H/H On mechanically assisted ventilation 05/26/2013 06/20/2020 Overview: extubated Pre-op testing 05/25/2013 06/15/2020 Overview: Images from the original note were not included. [facility] Surgeon: David Salcido M.D. Informed Consent Completed: yes STS Score: 0.771 CAD: No Is intended procedure a CABG: No - is a beta beatriz ordered? No - reason: not indicated H & P completed: Yes PA/LAT: Completed CT: Completed MRI: N/A LE US: N/A Cath: No Echo:Completed EKG: Completed EF %: 58 PI's: N/A Carotid: N/A Mapping: N/A Dental: Completed PFT's: N/A Basename 05/25/13 0950 WBC 7.97 HB 13.0 HCT 39.0 PLT 229 INR 0.9 CREAT 0.95 UA: Normal HCG:N/A ABO/ABO Confirmed: Yes Blood ordered: Yes SA Swab: Yes - results: Pending Last Dose of Anticoagulation: Aspirin Op Note: N/A Pacemaker Check: N/A Consults: none DM: No Cardiac Surgical prep: N/A SIGNATURE: Adeline Anaya CNP CHECKED BY: roseann DATE of SERVICE: 05/25/2013 TIME of SERVICE: 3:50 PM Supervision of other [facility] (V23.89) 05/06/2008 08/16/2009 Routine general medical exam ination at a health care facility 09/25/2007 01/08/2012 Overview: PGF in 01-19: pt has not been back to the conduit helper since that time LDL 84, HDL 37, TG 126 in 10-23 Creat 1 in 10-23 HCT 38.5% in 10-23 HCG 276 in 11-20: reportedly about 5 weeks Lab from 11-27-07 noted miscarriage documented as of this encounter (statuses as of 04/22/2023) [facility]10-[facility]2020 History of Past illness Narrative* Problem Noted Date Diagnosed Date Resolved Date Acute blood loss anemia 06/19/202003/2020 Overview: See coordination of care note. 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 Garcia, now with yazmin Hgb and serum LDH with decrease in reticulocyte count, Dr. Garcia believes this has resolved. Also with h/o LUZ, on rx, normal pre-op H/H On mechanically assisted ventilation 05/26/2013 06/20/2020 Overview: extubated Pre-op testing 05/25/2013 06/15/2020 Overview: Images from the original note were not included. [facility] Surgeon: David Salcido M.D. Informed Consent Completed: yes STS Score: 0.771 CAD: No Is intended procedure a CABG: No - is a beta beatriz ordered? No - reason: not indicated H & P completed: Yes PA/LAT: Completed CT: Completed MRI: N/A LE US: N/A Cath: No Echo:Completed EKG: Completed EF %: 58 PI's: N/A Carotid: N/A Mapping: N/A Dental: Completed PFT's: N/A Basename 05/25/13 0950 WBC 7.97 HB 13.0 HCT 39.0 PLT 229 INR 0.9 CREAT 0.95 UA: Normal HCG:N/A ABO/ABO Confirmed: Yes Blood ordered: Yes SA Swab: Yes - results: Pending Last Dose of Anticoagulation: Aspirin Op Note: N/A Pacemaker Check: N/A Consults: none DM: No Cardiac Surgical prep: N/A SIGNATURE: Adeline Anaya CNP CHECKED BY: roseann DATE of SERVICE: 05/25/2013 TIME of SERVICE: 3:50 PM Supervision of other [facility] (V23.89) 05/06/2008 08/16/2009 Routine general medical exam ination at a health care facility 09/25/2007 01/08/2012 Overview: PGF in 01-19: pt has not been back to the conduit helper since that time LDL 84, HDL 37, TG 126 in 10-23 Creat 1 in 10-23 HCT 38.5% in 10-23 HCG 276 in 11-20: reportedly about 5 weeks Lab from 11-27-07 noted miscarriage documented as of this encounter (statuses as of 04/23/2023) [facility] History of Past illness Narrative* Problem Noted Date Diagnosed Date Resolved Date Acute blood loss anemia 06/19/202003/2020 Overview: See coordination of care note. 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 Garcia, now with yazmin Hgb and serum LDH with decrease in reticulocyte count, Dr. Garcia believes this has resolved. Also with h/o LUZ, on rx, normal pre-op H/H On mechanically assisted ventilation 05/26/2013 06/20/2020 Overview: extubated Pre-op testing 05/25/2013 06/15/2020 Overview: Images from the original note were not included. [facility] Surgeon: David Salcido M.D. Informed Consent Completed: yes STS Score: 0.771 CAD: No Is intended procedure a CABG: No - is a beta beatriz ordered? No - reason: not indicated H & P completed: Yes PA/LAT: Completed CT: Completed MRI: N/A LE US: N/A Cath: No Echo:Completed EKG: Completed EF %: 58 PI's: N/A Carotid: N/A Mapping: N/A Dental: Completed PFT's: N/A Basename 05/25/13 0950 WBC 7.97 HB 13.0 HCT 39.0 PLT 229 INR 0.9 CREAT 0.95 UA: Normal HCG:N/A ABO/ABO Confirmed: Yes Blood ordered: Yes SA Swab: Yes - results: Pending Last Dose of Anticoagulation: Aspirin Op Note: N/A Pacemaker Check: N/A Consults: none DM: No Cardiac Surgical prep: N/A SIGNATURE: Adeline Anaya CNP CHECKED BY: roseann DATE of SERVICE: 05/25/2013 TIME of SERVICE: 3:50 PM Supervision of other [facility] (V23.89) 05/06/2008 08/16/2009 Routine general medical exam ination at a health care facility 09/25/2007 01/08/2012 Overview: PGF in 01-19: pt has not been back to the conduit helper since that time LDL 84, HDL 37, TG 126 in 2- Creat 1 in -08 HCT 38.5% in 2-08 HCG 276 in 11-20: reportedly about 5 weeks Lab from 11-27-07 noted miscarriage documented as of this encounter (statuses as of 04/23/2023) [facility]2020 History of Past illness Narrative* Problem Noted Date Diagnosed Date Resolved Date Acute blood loss anemia 06/19/202003/2020 Overview: See coordination of care note. 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 Garcia, now with yazmin Hgb and serum LDH with decrease in reticulocyte count, Dr. Garcia believes this has resolved. Also with h/o LUZ, on rx, normal pre-op H/H On mechanically assisted ventilation 05/26/2013 06/20/2020 Overview: extubated Pre-op testing 05/25/2013 06/15/2020 Overview: Images from the original note were not included. [facility] Surgeon: David Salcido M.D. Informed Consent Completed: yes STS Score: 0.771 CAD: No Is intended procedure a CABG: No - is a beta beatriz ordered? No - reason: not indicated H & P completed: Yes PA/LAT: Completed CT: Completed MRI: N/A LE US: N/A Cath: No Echo:Completed EKG: Completed EF %: 58 PI's: N/A Carotid: N/A Mapping: N/A Dental: Completed PFT's: N/A Basename 05/25/13 0950 WBC 7.97 HB 13.0 HCT 39.0 PLT 229 INR 0.9 CREAT 0.95 UA: Normal HCG:N/A ABO/ABO Confirmed: Yes Blood ordered: Yes SA Swab: Yes - results: Pending Last Dose of Anticoagulation: Aspirin Op Note: N/A Pacemaker Check: N/A Consults: none DM: No Cardiac Surgical prep: N/A SIGNATURE: Adeline Anaya CNP CHECKED BY: [email or web address] DATE of SERVICE: 05/25/2013 TIME of SERVICE: 3:50 PM Supervision of other [facility] (V23.89) 05/06/2008 08/16/2009 Routine general medical exam ination at a health care facility 09/25/2007 01/08/2012 Overview: PGF in 01-19: pt has not been back to the conduit helper since that time LDL 84, HDL 37, TG 126 in 2-08 Creat 1 in 2-08 HCT 38.5% in 2-08 HCG 276 in 3-: reportedly about 5 weeks Lab from 11-27-07 noted miscarriage documented as of this encounter (statuses as of 04/24/2023) [facility]2020 History of Past illness Narrative* Problem Noted Date Diagnosed Date Resolved Date Acute blood loss anemia 06/19/202003/2020 Overview: See coordination of care note. 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 Garcia, now with yazmin Hgb and serum LDH with decrease in reticulocyte count, Dr. Garcia believes this has resolved. Also with h/o LUZ, on rx, normal pre-op H/H On mechanically assisted ventilation 05/26/2013 06/20/2020 Overview: extubated Pre-op testing 05/25/2013 06/15/2020 Overview: Images from the original note were not included. [facility] Surgeon: David Salcido M.D. Informed Consent Completed: yes STS Score: 0.771 CAD: No Is intended procedure a CABG: No - is a beta beatriz ordered? No - reason: not indicated H & P completed: Yes PA/LAT: Completed CT: Completed MRI: N/A LE US: N/A Cath: No Echo:Completed EKG: Completed EF %: 58 PI's: N/A Carotid: N/A Mapping: N/A Dental: Completed PFT's: N/A Basename 05/25/13 0950 WBC 7.97 HB 13.0 HCT 39.0 PLT 229 INR 0.9 CREAT 0.95 UA: Normal HCG:N/A ABO/ABO Confirmed: Yes Blood ordered: Yes SA Swab: Yes - results: Pending Last Dose of Anticoagulation: Aspirin Op Note: N/A Pacemaker Check: N/A Consults: none DM: No Cardiac Surgical prep: N/A SIGNATURE: Adeline Anaya CNP CHECKED BY: [email or web address] DATE of SERVICE: 05/25/2013 TIME of SERVICE: 3:50 PM Supervision of other [facility] (V23.89) 05/06/2008 08/16/2009 Routine general medical exam ination at a health care facility 09/25/2007 01/08/2012 Overview: PGF in 01-19: pt has not been back to the conduit helper since that time LDL 84, HDL 37, TG 126 in 10-23 Creat 1 in 10-23 HCT 38.5% in 10-23 HCG 276 in 11-20: reportedly about 5 weeks Lab from 11-27-07 noted miscarriage documented as of this encounter (statuses as of 04/25/2023) [facility] History of Past illness Narrative* Problem Noted Date Diagnosed Date Resolved Date Acute blood loss anemia 06/19/2020 10/0 03/2020 Overview: See coordination of care note. 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 Garcia, now with yazmin Hgb and serum LDH with decrease in reticulocyte count, Dr. Garcia believes this has resolved. Also with h/o LUZ, on rx, normal pre-op H/H On mechanically assisted ventilation 05/26/2013 06/20/2020 Overview: extubated Pre-op testing 05/25/2013 06/15/2020 Overview: Images from the original note were not included. [facility] Surgeon: David Salcido M.D. Informed Consent Completed: yes STS Score: 0.771 CAD: No Is intended procedure a CABG: No - is a beta beatriz ordered? No - reason: not indicated H & P completed: Yes PA/LAT: Completed CT: Completed MRI: N/A LE US: N/A Cath: No Echo:Completed EKG: Completed EF %: 58 PI's: N/A Carotid: N/A Mapping: N/A Dental: Completed PFT's: N/A Basename 05/25/13 0950 WBC 7.97 HB 13.0 HCT 39.0 PLT 229 INR 0.9 CREAT 0.95 UA: Normal HCG:N/A ABO/ABO Confirmed: Yes Blood ordered: Yes SA Swab: Yes - results: Pending Last Dose of Anticoagulation: Aspirin Op Note: N/A Pacemaker Check: N/A Consults: none DM: No Cardiac Surgical prep: N/A SIGNATURE: Adeline Anaya CNP CHECKED BY: [email or web address] DATE of SERVICE: 05/25/2013 TIME of SERVICE: 3:50 PM Supervision of other [facility] (V23.89) 05/06/2008 08/16/2009 Routine general medical exam ination at a health care facility 09/25/2007 01/08/2012 Overview: PGF in 01-19: pt has not been back to the conduit helper since that time LDL 84, HDL 37, TG 126 in 10-23 Creat 1 in 10-23 HCT 38.5% in 10-23 HCG 276 in 11-20: reportedly about 5 weeks Lab from 11-27-07 noted miscarriage documented as of this encounter (statuses as of 04/26/2023) [facility] History of Past illness Narrative* Problem Noted Date Diagnosed Date Resolved Date Acute blood loss anemia 06/19/202003/2020 Overview: See coordination of care note. 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 Garcia, now with yazmin Hgb and serum LDH with decrease in reticulocyte count, Dr. Garcia believes this has resolved. Also with h/o LUZ, on rx, normal pre-op H/H On mechanically assisted ventilation 05/26/2013 06/20/2020 Overview: extubated Pre-op testing 05/25/2013 06/15/2020 Overview: Images from the original note were not included. [facility] Surgeon: David Salcido M.D. Informed Consent Completed: yes STS Score: 0.771 CAD: No Is intended procedure a CABG: No - is a beta beatriz ordered? No - reason: not indicated H & P completed: Yes PA/LAT: Completed CT: Completed MRI: N/A LE US: N/A Cath: No Echo:Completed EKG: Completed EF %: 58 PI's: N/A Carotid: N/A Mapping: N/A Dental: Completed PFT's: N/A Basename 05/25/13 0950 WBC 7.97 HB 13.0 HCT 39.0 PLT 229 INR 0.9 CREAT 0.95 UA: Normal HCG:N/A ABO/ABO Confirmed: Yes Blood ordered: Yes SA Swab: Yes - results: Pending Last Dose of Anticoagulation: Aspirin Op Note: N/A Pacemaker Check: N/A Consults: none DM: No Cardiac Surgical prep: N/A SIGNATURE: Adeline Anaya CNP CHECKED BY: [email or web address] DATE of SERVICE: 05/25/2013 TIME of SERVICE: 3:50 PM Supervision of other [facility] (V23.89) 05/06/2008 08/16/2009 Routine general medical exam ination at a health care facility 09/25/2007 01/08/2012 Overview: PGF in 01-19: pt has not been back to the conduit helper since that time LDL 84, HDL 37, TG 126 in 10-23 Creat 1 in 10-23 HCT 38.5% in 10-23 HCG 276 in 11-20: reportedly about 5 weeks Lab from 11-27-07 noted miscarriage documented as of this encounter (statuses as of 04/28/2023) [facility] History of Past illness Narrative* Problem Noted Date Diagnosed Date Resolved Date Acute blood loss anemia 06/19/202003/2020 Overview: See coordination of care note. 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 Garcia, now with yazmin Hgb and serum LDH with decrease in reticulocyte count, Dr. Garcia believes this has resolved. Also with h/o LUZ, on rx, normal pre-op H/H On mechanically assisted ventilation 05/26/2013 06/20/2020 Overview: extubated Pre-op testing 05/25/2013 06/15/2020 Overview: Images from the original note were not included. [facility] Surgeon: David Salcido M.D. Informed Consent Completed: yes STS Score: 0.771 CAD: No Is intended procedure a CABG: No - is a beta beatriz ordered? No - reason: not indicated H & P completed: Yes PA/LAT: Completed CT: Completed MRI: N/A LE US: N/A Cath: No Echo:Completed EKG: Completed EF %: 58 PI's: N/A Carotid: N/A Mapping: N/A Dental: Completed PFT's: N/A Basename 05/25/13 0950 WBC 7.97 HB 13.0 HCT 39.0 PLT 229 INR 0.9 CREAT 0.95 UA: Normal HCG:N/A ABO/ABO Confirmed: Yes Blood ordered: Yes SA Swab: Yes - results: Pending Last Dose of Anticoagulation: Aspirin Op Note: N/A Pacemaker Check: N/A Consults: none DM: No Cardiac Surgical prep: N/A SIGNATURE: Adeline Anaya CNP CHECKED BY: [email or web address] DATE of SERVICE: 05/25/2013 TIME of SERVICE: 3:50 PM Supervision of other [facility] (V23.89) 05/06/2008 08/16/2009 Routine general medical exam ination at a health care facility 09/25/2007 01/08/2012 Overview: PGF in 01-19: pt has not been back to the conduit helper since that time LDL 84, HDL 37, TG 126 in - Creat 1 in 10-23 HCT 38.5% in 2- HCG 276 in 11-20: reportedly about 5 weeks Lab from 11-27-07 noted miscarriage documented as of this encounter (statuses as of 04/30/2023) [facility] History of Past illness Narrative* Problem Noted Date Diagnosed Date Resolved Date Acute blood loss anemia 06/19/202003/2020 Overview: See coordination of care note. 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 Garcia, now with yazmin Hgb and serum LDH with decrease in reticulocyte count, Dr. Garcia believes this has resolved. Also with h/o LUZ, on rx, normal pre-op H/H On mechanically assisted ventilation 05/26/2013 06/20/2020 Overview: extubated Pre-op testing 05/25/2013 06/15/2020 Overview: Images from the original note were not included. [facility] Surgeon: David Salcido, M.D. Informed Consent Completed: yes STS Score: 0.771 CAD: No Is intended procedure a CABG: No - is a beta beatriz ordered? No - reason: not indicated H & P completed: Yes PA/LAT: Completed CT: Completed MRI: N/A LE US: N/A Cath: No Echo:Completed EKG: Completed EF %: 58 PI's: N/A Carotid: N/A Mapping: N/A Dental: Completed PFT's: N/A Basename 05/25/13 0950 WBC 7.97 HB 13.0 HCT 39.0 PLT 229 INR 0.9 CREAT 0.95 UA: Normal HCG:N/A ABO/ABO Confirmed: Yes Blood ordered: Yes SA Swab: Yes - results: Pending Last Dose of Anticoagulation: Aspirin Op Note: N/A Pacemaker Check: N/A Consults: none DM: No Cardiac Surgical prep: N/A SIGNATURE: Adeline Anaya CNP CHECKED BY: [email or web address] DATE of SERVICE: 05/25/2013 TIME of SERVICE: 3:50 PM Supervision of other [facility] (V23.89) 05/06/2008 08/16/2009 Routine general medical exam ination at a health care facility 09/25/2007 01/08/2012 Overview: PGF in 01-19: pt has not been back to the conduit helper since that time LDL 84, HDL 37, TG 126 in 2-08 Creat 1 in 2-08 HCT 38.5% in 2-08 HCG 276 in 11-20: reportedly about 5 weeks Lab from 11-27-07 noted miscarriage documented as of this encounter (statuses as of 04/30/2023) [facility] History of Past illness Narrative* Problem Noted Date Diagnosed Date Resolved Date Acute blood loss anemia 06/19/2020 10/0 03/2020 Overview: See coordination of care note. 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 Garcia, now with yazmin Hgb and serum LDH with decrease in reticulocyte count, Dr. Garcia believes this has resolved. Also with h/o LUZ, on rx, normal pre-op H/H On mechanically assisted ventilation 05/26/2013 06/20/2020 Overview: extubated Pre-op testing 05/25/2013 06/15/2020 Overview: Images from the original note were not included. [facility] Surgeon: David Salcido M.D. Informed Consent Completed: yes STS Score: 0.771 CAD: No Is intended procedure a CABG: No - is a beta beatriz ordered? No - reason: not indicated H & P completed: Yes PA/LAT: Completed CT: Completed MRI: N/A LE US: N/A Cath: No Echo:Completed EKG: Completed EF %: 58 PI's: N/A Carotid: N/A Mapping: N/A Dental: Completed PFT's: N/A Basename 05/25/13 0950 WBC 7.97 HB 13.0 HCT 39.0 PLT 229 INR 0.9 CREAT 0.95 UA: Normal HCG:N/A ABO/ABO Confirmed: Yes Blood ordered: Yes SA Swab: Yes - results: Pending Last Dose of Anticoagulation: Aspirin Op Note: N/A Pacemaker Check: N/A Consults: none DM: No Cardiac Surgical prep: N/A SIGNATURE: Adeline Anaya CNP CHECKED BY: [email or web address] DATE of SERVICE: 05/25/2013 TIME of SERVICE: 3:50 PM Supervision of other [facility] (V23.89) 05/06/2008 08/16/2009 Routine general medical exam ination at a health care facility 09/25/2007 01/08/2012 Overview: PGF in 01-19: pt has not been back to the conduit helper since that time LDL 84, HDL 37, TG 126 in - Creat 1 in - HCT 38.5% in - HCG 276 in 11-20: reportedly about 5 weeks Lab from 11-27-07 noted miscarriage documented as of this encounter (statuses as of 04/30/2023) [facility] History of Past illness Narrative* Problem Noted Date Diagnosed Date Resolved Date Acute blood loss anemia 06/19/202003/2020 Overview: See coordination of care note. 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 Garcia, now with yazmin Hgb and serum LDH with decrease in reticulocyte count, Dr. Garcia believes this has resolved. Also with h/o LUZ, on rx, normal pre-op H/H On mechanically assisted ventilation 05/26/2013 06/20/2020 Overview: extubated Pre-op testing 05/25/2013 06/15/2020 Overview: Images from the original note were not included. [facility] Surgeon: David Salcido M.D. Informed Consent Completed: yes STS Score: 0.771 CAD: No Is intended procedure a CABG: No - is a beta beatriz ordered? No - reason: not indicated H & P completed: Yes PA/LAT: Completed CT: Completed MRI: N/A LE US: N/A Cath: No Echo:Completed EKG: Completed EF %: 58 PI's: N/A Carotid: N/A Mapping: N/A Dental: Completed PFT's: N/A Basename 05/25/13 0950 WBC 7.97 HB 13.0 HCT 39.0 PLT 229 INR 0.9 CREAT 0.95 UA: Normal HCG:N/A ABO/ABO Confirmed: Yes Blood ordered: Yes SA Swab: Yes - results: Pending Last Dose of Anticoagulation: Aspirin Op Note: N/A Pacemaker Check: N/A Consults: none DM: No Cardiac Surgical prep: N/A SIGNATURE: Adeline Anaya CNP CHECKED BY: [email or web address] DATE of SERVICE: 05/25/2013 TIME of SERVICE: 3:50 PM Supervision of other [facility] sk (V23.89) 05/06/2008 08/16/2009 Routine general medical exam ination at a health care facility 09/25/2007 01/08/2012 Overview: PGF in 01-19: pt has not been back to the conduit helper since that time LDL 84, HDL 37, TG 126 in 2-08 Creat 1 in 10-23 HCT 38.5% in - HCG 276 in 11-20: reportedly about 5 weeks Lab from 11-27-07 noted miscarriage documented as of this encounter (statuses as of 05/03/2023) [facility]10-05-2020 History of Past illness Narrative* Problem Noted Date Diagnosed Date Resolved Date Acute blood loss anemia 06/19/202003/2020 Overview: See coordination of care note. 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 Garcia, now with yazmin Hgb and serum LDH with decrease in reticulocyte count, Dr. Garcia believes this has resolved. Also with h/o LUZ, on rx, normal pre-op H/H On mechanically assisted ventilation 05/26/2013 06/20/2020 Overview: extubated Pre-op testing 05/25/2013 06/15/2020 Overview: Images from the original note were not included. [facility] Surgeon: David Salcido M.D. Informed Consent Completed: yes STS Score: 0.771 CAD: No Is intended procedure a CABG: No - is a beta beatriz ordered? No - reason: not indicated H & P completed: Yes PA/LAT: Completed CT: Completed MRI: N/A LE US: N/A Cath: No Echo:Completed EKG: Completed EF %: 58 PI's: N/A Carotid: N/A Mapping: N/A Dental: Completed PFT's: N/A Basename 05/25/13 0950 WBC 7.97 HB 13.0 HCT 39.0 PLT 229 INR 0.9 CREAT 0.95 UA: Normal HCG:N/A ABO/ABO Confirmed: Yes Blood ordered: Yes SA Swab: Yes - results: Pending Last Dose of Anticoagulation: Aspirin Op Note: N/A Pacemaker Check: N/A Consults: none DM: No Cardiac Surgical prep: N/A SIGNATURE: Adeline Anaya CNP CHECKED BY: [email or web address] DATE of SERVICE: 05/25/2013 TIME of SERVICE: 3:50 PM Supervision of other [facility] (V23.89) 05/06/2008 08/16/2009 Routine general medical exam ination at a health care facility 09/25/2007 01/08/2012 Overview: PGF in 01-19: pt has not been back to the conduit helper since that time LDL 84, HDL 37, TG 126 in - Creat 1 in 10-23 HCT 38.5% in - HCG 276 in 11-20: reportedly about 5 weeks Lab from 11-27-07 noted miscarriage documented as of this encounter (statuses as of 05/03/2023) [facility]10-05-2020 History of Past illness Narrative* Problem Noted Date Diagnosed Date Resolved Date Acute blood loss anemia 06/19/202003/2020 Overview: See coordination of care note. 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 Garcia, now with yazmin Hgb and serum LDH with decrease in reticulocyte count, Dr. Garcia believes this has resolved. Also with h/o LUZ, on rx, normal pre-op H/H On mechanically assisted ventilation 05/26/2013 06/20/2020 Overview: extubated Pre-op testing 05/25/2013 06/15/2020 Overview: Images from the original note were not included. [facility] Surgeon: David Salcido M.D. Informed Consent Completed: yes STS Score: 0.771 CAD: No Is intended procedure a CABG: No - is a beta beatriz ordered? No - reason: not indicated H & P completed: Yes PA/LAT: Completed CT: Completed MRI: N/A LE US: N/A Cath: No Echo:Completed EKG: Completed EF %: 58 PI's: N/A Carotid: N/A Mapping: N/A Dental: Completed PFT's: N/A Basename 05/25/13 0950 WBC 7.97 HB 13.0 HCT 39.0 PLT 229 INR 0.9 CREAT 0.95 UA: Normal HCG:N/A ABO/ABO Confirmed: Yes Blood ordered: Yes SA Swab: Yes - results: Pending Last Dose of Anticoagulation: Aspirin Op Note: N/A Pacemaker Check: N/A Consults: none DM: No Cardiac Surgical prep: N/A SIGNATURE: Adeline Anaya CNP CHECKED BY: roseann DATE of SERVICE: 05/25/2013 TIME of SERVICE: 3:50 PM Supervision of other [facility] sk (V23.89) 05/06/2008 08/16/2009 Routine general medical exam ination at a health care facility 09/25/2007 01/08/2012 Overview: PGF in 01-19: pt has not been back to the conduit helper since that time LDL 84, HDL 37, TG 126 in 10-23 Creat 1 in 10-23 HCT 38.5% in 10-23 HCG 276 in 11-20: reportedly about 5 weeks Lab from 11-27-07 noted miscarriage documented as of this encounter (statuses as of 05/03/2023) [facility]10-05-2020 History of Past illness Narrative* Problem Noted Date Diagnosed Date Resolved Date Acute blood loss anemia 06/19/202003/2020 Overview: See coordination of care note. 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 Garcia, now with yazmin Hgb and serum LDH with decrease in reticulocyte count, Dr. Garcia believes this has resolved. Also with h/o LUZ, on rx, normal pre-op H/H On mechanically assisted ventilation 05/26/2013 06/20/2020 Overview: extubated Pre-op testing 05/25/2013 06/15/2020 Overview: Images from the original note were not included. [facility] Surgeon: David Salcido M.D. Informed Consent Completed: yes STS Score: 0.771 CAD: No Is intended procedure a CABG: No - is a beta beartiz ordered? No - reason: not indicated H & P completed: Yes PA/LAT: Completed CT: Completed MRI: N/A LE US: N/A Cath: No Echo:Completed EKG: Completed EF %: 58 PI's: N/A Carotid: N/A Mapping: N/A Dental: Completed PFT's: N/A Basename 05/25/13 0950 WBC 7.97 HB 13.0 HCT 39.0 PLT 229 INR 0.9 CREAT 0.95 UA: Normal HCG:N/A ABO/ABO Confirmed: Yes Blood ordered: Yes SA Swab: Yes - results: Pending Last Dose of Anticoagulation: Aspirin Op Note: N/A Pacemaker Check: N/A Consults: none DM: No Cardiac Surgical prep: N/A SIGNATURE: Adeline Anaya CNP CHECKED BY: roseann DATE of SERVICE: 05/25/2013 TIME of SERVICE: 3:50 PM Supervision of other [facility] (V23.89) 05/06/2008 08/16/2009 Routine general medical exam ination at a health care facility 09/25/2007 01/08/2012 Overview: PGF in 01-19: pt has not been back to the conduit helper since that time LDL 84, HDL 37, TG 126 in - Creat 1 in -08 HCT 38.5% in 2-08 HCG 276 in -: reportedly about 5 weeks Lab from 11-27-07 noted miscarriage documented as of this encounter (statuses as of 05/08/2023) [facility]10-[facility]-2020 History of Past illness Narrative* Problem Noted Date Diagnosed Date Resolved Date Acute blood loss anemia 06/19/202003/2020 Overview: See coordination of care note. 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 Garcia, now with yazmin Hgb and serum LDH with decrease in reticulocyte count, Dr. Garcia believes this has resolved. Also with h/o LUZ, on rx, normal pre-op H/H On mechanically assisted ventilation 05/26/2013 06/20/2020 Overview: extubated Pre-op testing 05/25/2013 06/15/2020 Overview: Images from the original note were not included. [facility] Surgeon: David Salcido M.D. Informed Consent Completed: yes STS Score: 0.771 CAD: No Is intended procedure a CABG: No - is a beta beatriz ordered? No - reason: not indicated H & P completed: Yes PA/LAT: Completed CT: Completed MRI: N/A LE US: N/A Cath: No Echo:Completed EKG: Completed EF %: 58 PI's: N/A Carotid: N/A Mapping: N/A Dental: Completed PFT's: N/A Basename 05/25/13 0950 WBC 7.97 HB 13.0 HCT 39.0 PLT 229 INR 0.9 CREAT 0.95 UA: Normal HCG:N/A ABO/ABO Confirmed: Yes Blood ordered: Yes SA Swab: Yes - results: Pending Last Dose of Anticoagulation: Aspirin Op Note: N/A Pacemaker Check: N/A Consults: none DM: No Cardiac Surgical prep: N/A SIGNATURE: Adeline Anaya CNP CHECKED BY: [email or web address] DATE of SERVICE: 05/25/2013 TIME of SERVICE: 3:50 PM Supervision of other high-ri (V23.89) 05/06/2008 08/16/2009 Routine general medical exam ination at a health care facility 09/25/2007 01/08/2012 Overview: PGF in 01-19: pt has not been back to the conduit helper since that time LDL 84, HDL 37, TG 126 in - Creat 1 in - HCT 38.5% in 2- HCG 276 in 11-20: reportedly about 5 weeks Lab from 11-27-07 noted miscarriage documented as of this encounter (statuses as of 05/13/2023) [facility] History of Past illness Narrative* Problem Noted Date Diagnosed Date Resolved Date Acute blood loss anemia 06/19/2020 1003/2020 Overview: See coordination of care note. 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 Garcia, now with yazmin Hgb and serum LDH with decrease in reticulocyte count, Dr. Garcia believes this has resolved. Also with h/o LUZ, on rx, normal pre-op H/H On mechanically assisted ventilation 05/26/2013 06/20/2020 Overview: extubated Pre-op testing 05/25/2013 06/15/2020 Overview: Images from the original note were not included. [facility] Surgeon: David Salcido M.D. Informed Consent Completed: yes STS Score: 0.771 CAD: No Is intended procedure a CABG: No - is a beta beatriz ordered? No - reason: not indicated H & P completed: Yes PA/LAT: Completed CT: Completed MRI: N/A LE US: N/A Cath: No Echo:Completed EKG: Completed EF %: 58 PI's: N/A Carotid: N/A Mapping: N/A Dental: Completed PFT's: N/A Basename 05/25/13 0950 WBC 7.97 HB 13.0 HCT 39.0 PLT 229 INR 0.9 CREAT 0.95 UA: Normal HCG:N/A ABO/ABO Confirmed: Yes Blood ordered: Yes SA Swab: Yes - results: Pending Last Dose of Anticoagulation: Aspirin Op Note: N/A Pacemaker Check: N/A Consults: none DM: No Cardiac Surgical prep: N/A SIGNATURE: Adeline Anaya CNP CHECKED BY: [email or web address] DATE of SERVICE: 05/25/2013 TIME of SERVICE: 3:50 PM Supervision of other [facility] (V23.89) 05/06/2008 08/16/2009 Routine general medical exam ination at a health care facility 09/25/2007 01/08/2012 Overview: PGF in 01-19: pt has not been back to the conduit helper since that time LDL 84, HDL 37, TG 126 in - Creat 1 in - HCT 38.5% in 2- HCG 276 in 11-20: reportedly about 5 weeks Lab from 11-27-07 noted miscarriage documented as of this encounter (statuses as of 05/14/2023) [facility]2020 History of Past illness Narrative* Problem Noted Date Diagnosed Date Resolved Date Acute blood loss anemia 06/19/202003/2020 Overview: See coordination of care note. 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 Garcia, now with yazmin Hgb and serum LDH with decrease in reticulocyte count, Dr. Garcia believes this has resolved. Also with h/o LUZ, on rx, normal pre-op H/H On mechanically assisted ventilation 05/26/2013 06/20/2020 Overview: extubated Pre-op testing 05/25/2013 06/15/2020 Overview: Images from the original note were not included. [facility] Surgeon: David Salcido M.D. Informed Consent Completed: yes STS Score: 0.771 CAD: No Is intended procedure a CABG: No - is a beta beatriz ordered? No - reason: not indicated H & P completed: Yes PA/LAT: Completed CT: Completed MRI: N/A LE US: N/A Cath: No Echo:Completed EKG: Completed EF %: 58 PI's: N/A Carotid: N/A Mapping: N/A Dental: Completed PFT's: N/A Basename 05/25/13 0950 WBC 7.97 HB 13.0 HCT 39.0 PLT 229 INR 0.9 CREAT 0.95 UA: Normal HCG:N/A ABO/ABO Confirmed: Yes Blood ordered: Yes SA Swab: Yes - results: Pending Last Dose of Anticoagulation: Aspirin Op Note: N/A Pacemaker Check: N/A Consults: none DM: No Cardiac Surgical prep: N/A SIGNATURE: Adeline Anaya CNP CHECKED BY: [email or web address] DATE of SERVICE: 05/25/2013 TIME of SERVICE: 3:50 PM Supervision of other high-ri (V23.89) 05/06/2008 08/16/2009 Routine general medical exam ination at a health care facility 09/25/2007 01/08/2012 Overview: PGF in 01-19: pt has not been back to the conduit helper since that time LDL 84, HDL 37, TG 126 in 10-23 Creat 1 in 10-23 HCT 38.5% in - HCG 276 in 11-20: reportedly about 5 weeks Lab from 11-27-07 noted miscarriage documented as of this encounter (statuses as of 05/15/2023) [facility] History of Past illness Narrative* Problem Noted Date Diagnosed Date Resolved Date Acute blood loss anemia 06/19/202003/2020 Overview: See coordination of care note. 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 Garcia, now with yazmin Hgb and serum LDH with decrease in reticulocyte count, Dr. Garcia believes this has resolved. Also with h/o LUZ, on rx, normal pre-op H/H On mechanically assisted ventilation 05/26/2013 06/20/2020 Overview: extubated Pre-op testing 05/25/2013 06/15/2020 Overview: Images from the original note were not included. [facility] Surgeon: David Salcido M.D. Informed Consent Completed: yes STS Score: 0.771 CAD: No Is intended procedure a CABG: No - is a beta beatriz ordered? No - reason: not indicated H & P completed: Yes PA/LAT: Completed CT: Completed MRI: N/A LE US: N/A Cath: No Echo:Completed EKG: Completed EF %: 58 PI's: N/A Carotid: N/A Mapping: N/A Dental: Completed PFT's: N/A Basename 05/25/13 0950 WBC 7.97 HB 13.0 HCT 39.0 PLT 229 INR 0.9 CREAT 0.95 UA: Normal HCG:N/A ABO/ABO Confirmed: Yes Blood ordered: Yes SA Swab: Yes - results: Pending Last Dose of Anticoagulation: Aspirin Op Note: N/A Pacemaker Check: N/A Consults: none DM: No Cardiac Surgical prep: N/A SIGNATURE: Adeline Anaya CNP CHECKED BY: [email or web address] DATE of SERVICE: 05/25/2013 TIME of SERVICE: 3:50 PM Supervision of other [facility] sk (V23.89) 05/06/2008 08/16/2009 Routine general medical exam ination at a health care facility 09/25/2007 01/08/2012 Overview: PGF in 01-19: pt has not been back to the conduit helper since that time LDL 84, HDL 37, TG 126 in 10-23 Creat 1 in 10-23 HCT 38.5% in 10-23 HCG 276 in 11-20: reportedly about 5 weeks Lab from 11-27-07 noted miscarriage documented as of this encounter (statuses as of 05/21/2023) [facility] History of Past illness Narrative* Problem Noted Date Diagnosed Date Resolved Date Acute blood loss anemia 06/19/202003/2020 Overview: See coordination of care note. 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 Garcia, now with yazmin Hgb and serum LDH with decrease in reticulocyte count, Dr. Garcia believes this has resolved. Also with h/o LUZ, on rx, normal pre-op H/H On mechanically assisted ventilation 05/26/2013 06/20/2020 Overview: extubated Pre-op testing 05/25/2013 06/15/2020 Overview: Images from the original note were not included. [facility] Surgeon: David Salcido M.D. Informed Consent Completed: yes STS Score: 0.771 CAD: No Is intended procedure a CABG: No - is a beta beatriz ordered? No - reason: not indicated H & P completed: Yes PA/LAT: Completed CT: Completed MRI: N/A LE US: N/A Cath: No Echo:Completed EKG: Completed EF %: 58 PI's: N/A Carotid: N/A Mapping: N/A Dental: Completed PFT's: N/A Basename 05/25/13 0950 WBC 7.97 HB 13.0 HCT 39.0 PLT 229 INR 0.9 CREAT 0.95 UA: Normal HCG:N/A ABO/ABO Confirmed: Yes Blood ordered: Yes SA Swab: Yes - results: Pending Last Dose of Anticoagulation: Aspirin Op Note: N/A Pacemaker Check: N/A Consults: none DM: No Cardiac Surgical prep: N/A SIGNATURE: Adeline Anaya CNP CHECKED BY: [email or web address] DATE of SERVICE: 05/25/2013 TIME of SERVICE: 3:50 PM Supervision of other [facility] (V23.89) 05/06/2008 08/16/2009 Routine general medical exam ination at a health care facility 09/25/2007 01/08/2012 Overview: PGF in 01-19: pt has not been back to the conduit helper since that time LDL 84, HDL 37, TG 126 in -08 Creat 1 in -08 HCT 38.5% in 2-08 HCG 276 in 11-20: reportedly about 5 weeks Lab from 11-27-07 noted miscarriage documented as of this encounter (statuses as of 05/21/2023) [facility] History of Past illness Narrative* Problem Noted Date Diagnosed Date Resolved Date Acute blood loss anemia 06/19/202003/2020 Overview: See coordination of care note. 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 Garcia, now with yazmin Hgb and serum LDH with decrease in reticulocyte count, Dr. Garcia believes this has resolved. Also with h/o LUZ, on rx, normal pre-op H/H On mechanically assisted ventilation 05/26/2013 06/20/2020 Overview: extubated Pre-op testing 05/25/2013 06/15/2020 Overview: Images from the original note were not included. [facility] Surgeon: David Salcido M.D. Informed Consent Completed: yes STS Score: 0.771 CAD: No Is intended procedure a CABG: No - is a beta beatriz ordered? No - reason: not indicated H & P completed: Yes PA/LAT: Completed CT: Completed MRI: N/A LE US: N/A Cath: No Echo:Completed EKG: Completed EF %: 58 PI's: N/A Carotid: N/A Mapping: N/A Dental: Completed PFT's: N/A Basename 05/25/13 0950 WBC 7.97 HB 13.0 HCT 39.0 PLT 229 INR 0.9 CREAT 0.95 UA: Normal HCG:N/A ABO/ABO Confirmed: Yes Blood ordered: Yes SA Swab: Yes - results: Pending Last Dose of Anticoagulation: Aspirin Op Note: N/A Pacemaker Check: N/A Consults: none DM: No Cardiac Surgical prep: N/A SIGNATURE: Adeline Anaya CNP CHECKED BY: [email or web address] DATE of SERVICE: 05/25/2013 TIME of SERVICE: 3:50 PM Supervision of other [facility] sk (V23.89) 05/06/2008 08/16/2009 Routine general medical exam ination at a health care facility 09/25/2007 01/08/2012 Overview: PGF in 01-19: pt has not been back to the conduit helper since that time LDL 84, HDL 37, TG 126 in 2-08 Creat 1 in 2-08 HCT 38.5% in 2-08 HCG 276 in -: reportedly about 5 weeks Lab from 11-27-07 noted miscarriage documented as of this encounter (statuses as of 05/29/2023) [facility] History of Past illness Narrative* Problem Noted Date Diagnosed Date Resolved Date Acute blood loss anemia 06/19/202003/2020 Overview: See coordination of care note. 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 Garcia, now with yazmin Hgb and serum LDH with decrease in reticulocyte count, Dr. Garcia believes this has resolved. Also with h/o LUZ, on rx, normal pre-op H/H On mechanically assisted ventilation 05/26/2013 06/20/2020 Overview: extubated Pre-op testing 05/25/2013 06/15/2020 Overview: Images from the original note were not included. [facility] Surgeon: David Salcido M.D. Informed Consent Completed: yes STS Score: 0.771 CAD: No Is intended procedure a CABG: No - is a beta beatriz ordered? No - reason: not indicated H & P completed: Yes PA/LAT: Completed CT: Completed MRI: N/A LE US: N/A Cath: No Echo:Completed EKG: Completed EF %: 58 PI's: N/A Carotid: N/A Mapping: N/A Dental: Completed PFT's: N/A Basename 05/25/13 0950 WBC 7.97 HB 13.0 HCT 39.0 PLT 229 INR 0.9 CREAT 0.95 UA: Normal HCG:N/A ABO/ABO Confirmed: Yes Blood ordered: Yes SA Swab: Yes - results: Pending Last Dose of Anticoagulation: Aspirin Op Note: N/A Pacemaker Check: N/A Consults: none DM: No Cardiac Surgical prep: N/A SIGNATURE: Adeline Anaya CNP CHECKED BY: [email or web address] DATE of SERVICE: 05/25/2013 TIME of SERVICE: 3:50 PM Supervision of other [facility] sk (V23.89) 05/06/2008 08/16/2009 Routine general medical exam ination at a health care facility 09/25/2007 01/08/2012 Overview: PGF in 01-19: pt has not been back to the conduit helper since that time LDL 84, HDL 37, TG 126 in 10-23 Creat 1 in 10-23 HCT 38.5% in 10-23 HCG 276 in 11-20: reportedly about 5 weeks Lab from 11-27-07 noted miscarriage documented as of this encounter (statuses as of 06/05/2023) [facility] History of Past illness Narrative* Problem Noted Date Diagnosed Date Resolved Date Acute blood loss anemia 06/19/202003/2020 Overview: See coordination of care note. 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 Garcia, now with yazmin Hgb and serum LDH with decrease in reticulocyte count, Dr. Garcia believes this has resolved. Also with h/o LUZ, on rx, normal pre-op H/H On mechanically assisted ventilation 05/26/2013 06/20/2020 Overview: extubated Pre-op testing 05/25/2013 06/15/2020 Overview: Images from the original note were not included. [facility] Surgeon: David Salcido M.D. Informed Consent Completed: yes STS Score: 0.771 CAD: No Is intended procedure a CABG: No - is a beta beatriz ordered? No - reason: not indicated H & P completed: Yes PA/LAT: Completed CT: Completed MRI: N/A LE US: N/A Cath: No Echo:Completed EKG: Completed EF %: 58 PI's: N/A Carotid: N/A Mapping: N/A Dental: Completed PFT's: N/A Basename 05/25/13 0950 WBC 7.97 HB 13.0 HCT 39.0 PLT 229 INR 0.9 CREAT 0.95 UA: Normal HCG:N/A ABO/ABO Confirmed: Yes Blood ordered: Yes SA Swab: Yes - results: Pending Last Dose of Anticoagulation: Aspirin Op Note: N/A Pacemaker Check: N/A Consults: none DM: No Cardiac Surgical prep: N/A SIGNATURE: Adeline Anaya CNP CHECKED BY: [email or web address] DATE of SERVICE: 05/25/2013 TIME of SERVICE: 3:50 PM Supervision of other [facility] sk (V23.89) 05/06/2008 08/16/2009 Routine general medical exam ination at a [facility] care facility 09/25/2007 01/08/2012 Overview: PGF in 01-19: pt has not been back to the conduit helper since that time LDL 84, HDL 37, TG 126 in 10-23 Creat 1 in 10-23 HCT 38.5% in 10-23 HCG 276 in 11-20: reportedly about 5 weeks Lab from 11-27-07 noted miscarriage documented as of this encounter (statuses as of 06/07/2023) [facility] History of Past illness Narrative* Problem Noted Date Diagnosed Date Resolved Date Acute blood loss anemia 06/19/202003/2020 Overview: See coordination of care note. 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 Garcia, now with yazmin Hgb and serum LDH with decrease in reticulocyte count, Dr. Garcia believes this has resolved. Also with h/o LUZ, on rx, normal pre-op H/H On mechanically assisted ventilation 05/26/2013 06/20/2020 Overview: extubated Pre-op testing 05/25/2013 06/15/2020 Overview: Images from the original note were not included. [facility] Surgeon: David Salcido M.D. Informed Consent Completed: yes STS Score: 0.771 CAD: No Is intended procedure a CABG: No - is a beta beatriz ordered? No - reason: not indicated H & P completed: Yes PA/LAT: Completed CT: Completed MRI: N/A LE US: N/A Cath: No Echo:Completed EKG: Completed EF %: 58 PI's: N/A Carotid: N/A Mapping: N/A Dental: Completed PFT's: N/A Basename 05/25/13 0950 WBC 7.97 HB 13.0 HCT 39.0 PLT 229 INR 0.9 CREAT 0.95 UA: Normal HCG:N/A ABO/ABO Confirmed: Yes Blood ordered: Yes SA Swab: Yes - results: Pending Last Dose of Anticoagulation: Aspirin Op Note: N/A Pacemaker Check: N/A Consults: none DM: No Cardiac Surgical prep: N/A SIGNATURE: Adeline Anaya CNP CHECKED BY: [email or web address] DATE of SERVICE: 05/25/2013 TIME of SERVICE: 3:50 PM Supervision of other high-ri sk (V23.89) 05/06/2008 08/16/2009 Routine general medical exam ination at a health care facility 09/25/2007 01/08/2012 Overview: PGF in 01-19: pt has not been back to the conduit helper since that time LDL 84, HDL 37, TG 126 in 10-23 Creat 1 in 10-23 HCT 38.5% in 10-23 HCG 276 in 11-20: reportedly about 5 weeks Lab from 11-27-07 noted miscarriage documented as of this encounter (statuses as of 06/10/2023) [facility]10-05-2020 History of Past illness Narrative* Problem Noted Date Diagnosed Date Resolved Date Acute blood loss anemia 06/19/202003/2020 Overview: See coordination of care note. 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 Garcia, now with yazmin Hgb and serum LDH with decrease in reticulocyte count, Dr. Garcia believes this has resolved. Also with h/o LUZ, on rx, normal pre-op H/H On mechanically assisted ventilation 05/26/2013 06/20/2020 Overview: extubated Pre-op testing 05/25/2013 06/15/2020 Overview: Images from the original note were not included. [facility] Surgeon: David Salcido M.D. Informed Consent Completed: yes STS Score: 0.771 CAD: No Is intended procedure a CABG: No - is a beta beatriz ordered? No - reason: not indicated H & P completed: Yes PA/LAT: Completed CT: Completed MRI: N/A LE US: N/A Cath: No Echo:Completed EKG: Completed EF %: 58 PI's: N/A Carotid: N/A Mapping: N/A Dental: Completed PFT's: N/A Basename 05/25/13 0950 WBC 7.97 HB 13.0 HCT 39.0 PLT 229 INR 0.9 CREAT 0.95 UA: Normal HCG:N/A ABO/ABO Confirmed: Yes Blood ordered: Yes SA Swab: Yes - results: Pending Last Dose of Anticoagulation: Aspirin Op Note: N/A Pacemaker Check: N/A Consults: none DM: No Cardiac Surgical prep: N/A SIGNATURE: Adeline Anaya CNP CHECKED BY: roseann DATE of SERVICE: 05/25/2013 TIME of SERVICE: 3:50 PM Supervision of other [facility] (V23.89) 05/06/2008 08/16/2009 Routine general medical exam ination at a health care facility 09/25/2007 01/08/2012 Overview: PGF in 01-19: pt has not been back to the conduit helper since that time LDL 84, HDL 37, TG 126 in 2-08 Creat 1 in 2-08 HCT 38.5% in 2-08 HCG 276 in 3-: reportedly about 5 weeks Lab from 11-27-07 noted miscarriage documented as of this encounter (statuses as of 06/18/2023) [facility]10-[facility]2020 History of Past illness Narrative* Problem Noted Date Diagnosed Date Resolved Date Acute blood loss anemia 06/19/202003/2020 Overview: See coordination of care note. 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 Garcia, now with yazmin Hgb and serum LDH with decrease in reticulocyte count, Dr. Garcia believes this has resolved. Also with h/o LUZ, on rx, normal pre-op H/H On mechanically assisted ventilation 05/26/2013 06/20/2020 Overview: extubated Pre-op testing 05/25/2013 06/15/2020 Overview: Images from the original note were not included. [facility] Surgeon: David Salcido M.D. Informed Consent Completed: yes STS Score: 0.771 CAD: No Is intended procedure a CABG: No - is a beta beatriz ordered? No - reason: not indicated H & P completed: Yes PA/LAT: Completed CT: Completed MRI: N/A LE US: N/A Cath: No Echo:Completed EKG: Completed EF %: 58 PI's: N/A Carotid: N/A Mapping: N/A Dental: Completed PFT's: N/A Basename 05/25/13 0950 WBC 7.97 HB 13.0 HCT 39.0 PLT 229 INR 0.9 CREAT 0.95 UA: Normal HCG:N/A ABO/ABO Confirmed: Yes Blood ordered: Yes SA Swab: Yes - results: Pending Last Dose of Anticoagulation: Aspirin Op Note: N/A Pacemaker Check: N/A Consults: none DM: No Cardiac Surgical prep: N/A SIGNATURE: Adeline Anaya CNP CHECKED BY: roseann DATE of SERVICE: 05/25/2013 TIME of SERVICE: 3:50 PM Supervision of other [facility] (V23.89) 05/06/2008 08/16/2009 Routine general medical exam ination at a health care facility 09/25/2007 01/08/2012 Overview: PGF in 01-19: pt has not been back to the conduit helper since that time LDL 84, HDL 37, TG 126 in 2- Creat 1 in -08 HCT 38.5% in - HCG 276 in 11-20: reportedly about 5 weeks Lab from 11-27-07 noted miscarriage documented as of this encounter (statuses as of 06/21/2023) [facility]2020 History of Past illness Narrative* Problem Noted Date Diagnosed Date Resolved Date Acute blood loss anemia 06/19/202003/2020 Overview: See coordination of care note. 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 Garcia, now with yazmin Hgb and serum LDH with decrease in reticulocyte count, Dr. Garcia believes this has resolved. Also with h/o LUZ, on rx, normal pre-op H/H On mechanically assisted ventilation 05/26/2013 06/20/2020 Overview: extubated Pre-op testing 05/25/2013 06/15/2020 Overview: Images from the original note were not included. [facility] Surgeon: David Salcido M.D. Informed Consent Completed: yes STS Score: 0.771 CAD: No Is intended procedure a CABG: No - is a beta beatriz ordered? No - reason: not indicated H & P completed: Yes PA/LAT: Completed CT: Completed MRI: N/A LE US: N/A Cath: No Echo:Completed EKG: Completed EF %: 58 PI's: N/A Carotid: N/A Mapping: N/A Dental: Completed PFT's: N/A Basename 05/25/13 0950 WBC 7.97 HB 13.0 HCT 39.0 PLT 229 INR 0.9 CREAT 0.95 UA: Normal HCG:N/A ABO/ABO Confirmed: Yes Blood ordered: Yes SA Swab: Yes - results: Pending Last Dose of Anticoagulation: Aspirin Op Note: N/A Pacemaker Check: N/A Consults: none DM: No Cardiac Surgical prep: N/A SIGNATURE: Adeline Anaya CNP CHECKED BY: [email or web address] DATE of SERVICE: 05/25/2013 TIME of SERVICE: 3:50 PM Supervision of other [facility] (V23.89) 05/06/2008 08/16/2009 Routine general medical exam ination at a health care facility 09/25/2007 01/08/2012 Overview: PGF in 01-19: pt has not been back to the conduit helper since that time LDL 84, HDL 37, TG 126 in 10-23 Creat 1 in 10-23 HCT 38.5% in - HCG 276 in 11-20: reportedly about 5 weeks Lab from 11-27-07 noted miscarriage documented as of this encounter (statuses as of 06/24/2023) [facility]10-[facility]2020 History of Past illness Narrative* Problem Noted Date Diagnosed Date Resolved Date Acute blood loss anemia 06/19/2020 10/0 03/2020 Overview: See coordination of care note. 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 Garcia, now with yazmin Hgb and serum LDH with decrease in reticulocyte count, Dr. Garcia believes this has resolved. Also with h/o LUZ, on rx, normal pre-op H/H On mechanically assisted ventilation 05/26/2013 06/20/2020 Overview: extubated Pre-op testing 05/25/2013 06/15/2020 Overview: Images from the original note were not included. [facility] Surgeon: David Salcido M.D. Informed Consent Completed: yes STS Score: 0.771 CAD: No Is intended procedure a CABG: No - is a beta beatriz ordered? No - reason: not indicated H & P completed: Yes PA/LAT: Completed CT: Completed MRI: N/A LE US: N/A Cath: No Echo:Completed EKG: Completed EF %: 58 PI's: N/A Carotid: N/A Mapping: N/A Dental: Completed PFT's: N/A Basename 05/25/13 0950 WBC 7.97 HB 13.0 HCT 39.0 PLT 229 INR 0.9 CREAT 0.95 UA: Normal HCG:N/A ABO/ABO Confirmed: Yes Blood ordered: Yes SA Swab: Yes - results: Pending Last Dose of Anticoagulation: Aspirin Op Note: N/A Pacemaker Check: N/A Consults: none DM: No Cardiac Surgical prep: N/A SIGNATURE: Adeline Anaya CNP CHECKED BY: roseann DATE of SERVICE: 05/25/2013 TIME of SERVICE: 3:50 PM Supervision of other [facility] (V23.89) 05/06/2008 08/16/2009 Routine general medical exam ination at a health care facility 09/25/2007 01/08/2012 Overview: PGF in 01-19: pt has not been back to the conduit helper since that time LDL 84, HDL 37, TG 126 in 10-23 Creat 1 in 10-23 HCT 38.5% in 10-23 HCG 276 in 11-20: reportedly about 5 weeks Lab from 11-27-07 noted miscarriage documented as of this encounter (statuses as of 06/27/2023) [facility]2020 History of Past illness Narrative* Problem Noted Date Diagnosed Date Resolved Date Acute blood loss anemia 06/19/202003/2020 Overview: See coordination of care note. 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 Garcia, now with yazmin Hgb and serum LDH with decrease in reticulocyte count, Dr. Garcia believes this has resolved. Also with h/o LUZ, on rx, normal pre-op H/H On mechanically assisted ventilation 05/26/2013 06/20/2020 Overview: extubated Pre-op testing 05/25/2013 06/15/2020 Overview: Images from the original note were not included. [facility] Surgeon: David Salcido M.D. Informed Consent Completed: yes STS Score: 0.771 CAD: No Is intended procedure a CABG: No - is a beta beatriz ordered? No - reason: not indicated H & P completed: Yes PA/LAT: Completed CT: Completed MRI: N/A LE US: N/A Cath: No Echo:Completed EKG: Completed EF %: 58 PI's: N/A Carotid: N/A Mapping: N/A Dental: Completed PFT's: N/A Basename 05/25/13 0950 WBC 7.97 HB 13.0 HCT 39.0 PLT 229 INR 0.9 CREAT 0.95 UA: Normal HCG:N/A ABO/ABO Confirmed: Yes Blood ordered: Yes SA Swab: Yes - results: Pending Last Dose of Anticoagulation: Aspirin Op Note: N/A Pacemaker Check: N/A Consults: none DM: No Cardiac Surgical prep: N/A SIGNATURE: Adeline Anaya GARRISON CHECKED BY: roseann DATE of SERVICE: 05/25/2013 TIME of SERVICE: 3:50 PM Supervision of other [facility] (V23.89) 05/06/2008 08/16/2009 Routine general medical exam ination at a health care facility 09/25/2007 01/08/2012 Overview: PGF in 01-19: pt has not been back to the conduit helper since that time LDL 84, HDL 37, TG 126 in 10-23 Creat 1 in 10-23 HCT 38.5% in 2- HCG 276 in 11-20: reportedly about 5 weeks Lab from 11-27-07 noted miscarriage documented as of this encounter (statuses as of 06/27/2023) [facility] History of Past illness Narrative* Problem Noted Date Diagnosed Date Resolved Date Acute blood loss anemia 06/19/202003/2020 Overview: See coordination of care note. 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 Garcia, now with yazmin Hgb and serum LDH with decrease in reticulocyte count, Dr. Garcia believes this has resolved. Also with h/o LUZ, on rx, normal pre-op H/H On mechanically assisted ventilation 05/26/2013 06/20/2020 Overview: extubated Pre-op testing 05/25/2013 06/15/2020 Overview: Images from the original note were not included. [facility] Surgeon: David Salcido M.D. Informed Consent Completed: yes STS Score: 0.771 CAD: No Is intended procedure a CABG: No - is a beta beatriz ordered? No - reason: not indicated H & P completed: Yes PA/LAT: Completed CT: Completed MRI: N/A LE US: N/A Cath: No Echo:Completed EKG: Completed EF %: 58 PI's: N/A Carotid: N/A Mapping: N/A Dental: Completed PFT's: N/A Basename 05/25/13 0950 WBC 7.97 HB 13.0 HCT 39.0 PLT 229 INR 0.9 CREAT 0.95 UA: Normal HCG:N/A ABO/ABO Confirmed: Yes Blood ordered: Yes SA Swab: Yes - results: Pending Last Dose of Anticoagulation: Aspirin Op Note: N/A Pacemaker Check: N/A Consults: none DM: No Cardiac Surgical prep: N/A SIGNATURE: Adeline Anaya CNP CHECKED BY: [email or web address] DATE of SERVICE: 05/25/2013 TIME of SERVICE: 3:50 PM Supervision of other [facility] (V23.89) 05/06/2008 08/16/2009 Routine general medical exam ination at a health care facility 09/25/2007 01/08/2012 Overview: PGF in 01-19: pt has not been back to the conduit helper since that time LDL 84, HDL 37, TG 126 in - Creat 1 in 10-23 HCT 38.5% in - HCG 276 in 11-20: reportedly about 5 weeks Lab from 11-27-07 noted miscarriage documented as of this encounter (statuses as of 07/02/2023) [facility] History of Past illness Narrative* Problem Noted Date Diagnosed Date Resolved Date Acute blood loss anemia 06/19/202003/2020 Overview: See coordination of care note. 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 Garcia, now with yazmin Hgb and serum LDH with decrease in reticulocyte count, Dr. Garcia believes this has resolved. Also with h/o LUZ, on rx, normal pre-op H/H On mechanically assisted ventilation 05/26/2013 06/20/2020 Overview: extubated Pre-op testing 05/25/2013 06/15/2020 Overview: Images from the original note were not included. [facility] Surgeon: David Salcido M.D. Informed Consent Completed: yes STS Score: 0.771 CAD: No Is intended procedure a CABG: No - is a beta beatriz ordered? No - reason: not indicated H & P completed: Yes PA/LAT: Completed CT: Completed MRI: N/A LE US: N/A Cath: No Echo:Completed EKG: Completed EF %: 58 PI's: N/A Carotid: N/A Mapping: N/A Dental: Completed PFT's: N/A Basename 05/25/13 0950 WBC 7.97 HB 13.0 HCT 39.0 PLT 229 INR 0.9 CREAT 0.95 UA: Normal HCG:N/A ABO/ABO Confirmed: Yes Blood ordered: Yes SA Swab: Yes - results: Pending Last Dose of Anticoagulation: Aspirin Op Note: N/A Pacemaker Check: N/A Consults: none DM: No Cardiac Surgical prep: N/A SIGNATURE: Adeline Anaya CNP CHECKED BY: [email or web address] DATE of SERVICE: 05/25/2013 TIME of SERVICE: 3:50 PM Supervision of other high-ri (V23.89) 05/06/2008 08/16/2009 Routine general medical exam ination at a health care facility 09/25/2007 01/08/2012 Overview: PGF in 01-19: pt has not been back to the conduit helper since that time LDL 84, HDL 37, TG 126 in 2-08 Creat 1 in -08 HCT 38.5% in 2- HCG 276 in 11-20: reportedly about 5 weeks Lab from 11-27-07 noted miscarriage documented as of this encounter (statuses as of 07/11/2023) [facility] History of Past illness Narrative* Problem Noted Date Diagnosed Date Resolved Date Acute blood loss anemia 06/19/2020 100 03/2020 Overview: See coordination of care note. 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 Garcia, now with yazmin Hgb and serum LDH with decrease in reticulocyte count, Dr. Garcia believes this has resolved. Also with h/o LUZ, on rx, normal pre-op H/H On mechanically assisted ventilation 05/26/2013 06/20/2020 Overview: extubated Pre-op testing 05/25/2013 06/15/2020 Overview: Images from the original note were not included. [facility] Surgeon: David Salcido M.D. Informed Consent Completed: yes STS Score: 0.771 CAD: No Is intended procedure a CABG: No - is a beta beatriz ordered? No - reason: not indicated H & P completed: Yes PA/LAT: Completed CT: Completed MRI: N/A LE US: N/A Cath: No Echo:Completed EKG: Completed EF %: 58 PI's: N/A Carotid: N/A Mapping: N/A Dental: Completed PFT's: N/A Basename 05/25/13 0950 WBC 7.97 HB 13.0 HCT 39.0 PLT 229 INR 0.9 CREAT 0.95 UA: Normal HCG:N/A ABO/ABO Confirmed: Yes Blood ordered: Yes SA Swab: Yes - results: Pending Last Dose of Anticoagulation: Aspirin Op Note: N/A Pacemaker Check: N/A Consults: none DM: No Cardiac Surgical prep: N/A SIGNATURE: Adeline Anaya CNP CHECKED BY: [email or web address] DATE of SERVICE: 05/25/2013 TIME of SERVICE: 3:50 PM Supervision of other [facility] (V23.89) 05/06/2008 08/16/2009 Routine general medical exam ination at a health care facility 09/25/2007 01/08/2012 Overview: PGF in 01-19: pt has not been back to the conduit helper since that time LDL 84, HDL 37, TG 126 in - Creat 1 in - HCT 38.5% in - HCG 276 in 11-20: reportedly about 5 weeks Lab from 11-27-07 noted miscarriage documented as of this encounter (statuses as of 07/19/2023) [facility] History of Past illness Narrative* Problem Noted Date Diagnosed Date Resolved Date Acute blood loss anemia 06/19/202003/2020 Overview: See coordination of care note. 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 Garcia, now with yazmin Hgb and serum LDH with decrease in reticulocyte count, Dr. Garcia believes this has resolved. Also with h/o LUZ, on rx, normal pre-op H/H On mechanically assisted ventilation 05/26/2013 06/20/2020 Overview: extubated Pre-op testing 05/25/2013 06/15/2020 Overview: Images from the original note were not included. [facility] Surgeon: David Salcido M.D. Informed Consent Completed: yes STS Score: 0.771 CAD: No Is intended procedure a CABG: No - is a beta beatriz ordered? No - reason: not indicated H & P completed: Yes PA/LAT: Completed CT: Completed MRI: N/A LE US: N/A Cath: No Echo:Completed EKG: Completed EF %: 58 PI's: N/A Carotid: N/A Mapping: N/A Dental: Completed PFT's: N/A Basename 05/25/13 0950 WBC 7.97 HB 13.0 HCT 39.0 PLT 229 INR 0.9 CREAT 0.95 UA: Normal HCG:N/A ABO/ABO Confirmed: Yes Blood ordered: Yes SA Swab: Yes - results: Pending Last Dose of Anticoagulation: Aspirin Op Note: N/A Pacemaker Check: N/A Consults: none DM: No Cardiac Surgical prep: N/A SIGNATURE: Adeline Anaya CNP CHECKED BY: [email or web address] DATE of SERVICE: 05/25/2013 TIME of SERVICE: 3:50 PM Supervision of other [facility] (V23.89) 05/06/2008 08/16/2009 Routine general medical exam ination at a health care facility 09/25/2007 01/08/2012 Overview: PGF in 01-19: pt has not been back to the conduit helper since that time LDL 84, HDL 37, TG 126 in 2-08 Creat 1 in 2-08 HCT 38.5% in 10-23 HCG 276 in 11-20: reportedly about 5 weeks Lab from 11-27-07 noted miscarriage documented as of this encounter (statuses as of 07/19/2023) [facility] History of Past illness Narrative* Problem Noted Date Diagnosed Date Resolved Date Acute blood loss anemia 06/19/2020 10/0 03/2020 Overview: See coordination of care note. 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 Garcia, now with yazmin Hgb and serum LDH with decrease in reticulocyte count, Dr. Garcia believes this has resolved. Also with h/o LUZ, on rx, normal pre-op H/H On mechanically assisted ventilation 05/26/2013 06/20/2020 Overview: extubated Pre-op testing 05/25/2013 06/15/2020 Overview: Images from the original note were not included. [facility] Surgeon: David Salcido M.D. Informed Consent Completed: yes STS Score: 0.771 CAD: No Is intended procedure a CABG: No - is a beta beatriz ordered? No - reason: not indicated H & P completed: Yes PA/LAT: Completed CT: Completed MRI: N/A LE US: N/A Cath: No Echo:Completed EKG: Completed EF %: 58 PI's: N/A Carotid: N/A Mapping: N/A Dental: Completed PFT's: N/A Basename 05/25/13 0950 WBC 7.97 HB 13.0 HCT 39.0 PLT 229 INR 0.9 CREAT 0.95 UA: Normal HCG:N/A ABO/ABO Confirmed: Yes Blood ordered: Yes SA Swab: Yes - results: Pending Last Dose of Anticoagulation: Aspirin Op Note: N/A Pacemaker Check: N/A Consults: none DM: No Cardiac Surgical prep: N/A SIGNATURE: Adeline Anaya CNP CHECKED BY: [email or web address] DATE of SERVICE: 05/25/2013 TIME of SERVICE: 3:50 PM Supervision of other [facility] (V23.89) 05/06/2008 08/16/2009 Routine general medical exam ination at a health care facility 09/25/2007 01/08/2012 Overview: PGF in 01-19: pt has not been back to the conduit helper since that time LDL 84, HDL 37, TG 126 in 10-23 Creat 1 in 10-23 HCT 38.5% in 10-23 HCG 276 in 11-20: reportedly about 5 weeks Lab from 11-27-07 noted miscarriage documented as of this encounter (statuses as of 07/23/2023) [facility] History of Past illness Narrative* Problem Noted Date Diagnosed Date Resolved Date Acute blood loss anemia 06/19/202003/2020 Overview: See coordination of care note. 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 Garcia, now with yazmin Hgb and serum LDH with decrease in reticulocyte count, Dr. Garcia believes this has resolved. Also with h/o LUZ, on rx, normal pre-op H/H On mechanically assisted ventilation 05/26/2013 06/20/2020 Overview: extubated Pre-op testing 05/25/2013 06/15/2020 Overview: Images from the original note were not included. [facility] Surgeon: David Salcido M.D. Informed Consent Completed: yes STS Score: 0.771 CAD: No Is intended procedure a CABG: No - is a beta beatriz ordered? No - reason: not indicated H & P completed: Yes PA/LAT: Completed CT: Completed MRI: N/A LE US: N/A Cath: No Echo:Completed EKG: Completed EF %: 58 PI's: N/A Carotid: N/A Mapping: N/A Dental: Completed PFT's: N/A Basename 05/25/13 0950 WBC 7.97 HB 13.0 HCT 39.0 PLT 229 INR 0.9 CREAT 0.95 UA: Normal HCG:N/A ABO/ABO Confirmed: Yes Blood ordered: Yes SA Swab: Yes - results: Pending Last Dose of Anticoagulation: Aspirin Op Note: N/A Pacemaker Check: N/A Consults: none DM: No Cardiac Surgical prep: N/A SIGNATURE: Adeline Anaya CNP CHECKED BY: [email or web address] DATE of SERVICE: 05/25/2013 TIME of SERVICE: 3:50 PM Supervision of other [facility] (V23.89) 05/06/2008 08/16/2009 Routine general medical exam ination at a health care facility 09/25/2007 01/08/2012 Overview: PGF in 01-19: pt has not been back to the conduit helper since that time LDL 84, HDL 37, TG 126 in 10-23 Creat 1 in 10-23 HCT 38.5% in 10-23 HCG 276 in 11-20: reportedly about 5 weeks Lab from 11-27-07 noted miscarriage documented as of this encounter (statuses as of 07/30/2023) [facility] History of Past illness Narrative* Problem Noted Date Diagnosed Date Resolved Date Acute blood loss anemia 06/19/202003/2020 Overview: See coordination of care note. 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 Garcia, now with yazmin Hgb and serum LDH with decrease in reticulocyte count, Dr. Garcia believes this has resolved. Also with h/o LUZ, on rx, normal pre-op H/H On mechanically assisted ventilation 05/26/2013 06/20/2020 Overview: extubated Pre-op testing 05/25/2013 06/15/2020 Overview: Images from the original note were not included. [facility] Surgeon: David Salcido M.D. Informed Consent Completed: yes STS Score: 0.771 CAD: No Is intended procedure a CABG: No - is a beta beatriz ordered? No - reason: not indicated H & P completed: Yes PA/LAT: Completed CT: Completed MRI: N/A LE US: N/A Cath: No Echo:Completed EKG: Completed EF %: 58 PI's: N/A Carotid: N/A Mapping: N/A Dental: Completed PFT's: N/A Basename 05/25/13 0950 WBC 7.97 HB 13.0 HCT 39.0 PLT 229 INR 0.9 CREAT 0.95 UA: Normal HCG:N/A ABO/ABO Confirmed: Yes Blood ordered: Yes SA Swab: Yes - results: Pending Last Dose of Anticoagulation: Aspirin Op Note: N/A Pacemaker Check: N/A Consults: none DM: No Cardiac Surgical prep: N/A SIGNATURE: Adeline Anaya CNP CHECKED BY: [email or web address] DATE of SERVICE: 05/25/2013 TIME of SERVICE: 3:50 PM Supervision of other [facility] sk (V23.89) 05/06/2008 08/16/2009 Routine general medical exam ination at a health care facility 09/25/2007 01/08/2012 Overview: PGF in 01-19: pt has not been back to the conduit helper since that time LDL 84, HDL 37, TG 126 in 2-08 Creat 1 in -08 HCT 38.5% in 2-08 HCG 276 in -: reportedly about 5 weeks Lab from 11-27-07 noted miscarriage documented as of this encounter (statuses as of 08/01/2023) [facility] History of Past illness Narrative* Problem Noted Date Diagnosed Date Resolved Date Acute blood loss anemia 06/19/202003/2020 Overview: See coordination of care note. 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 Garcia, now with yazmin Hgb and serum LDH with decrease in reticulocyte count, Dr. Garcia believes this has resolved. Also with h/o LUZ, on rx, normal pre-op H/H On mechanically assisted ventilation 05/26/2013 06/20/2020 Overview: extubated Pre-op testing 05/25/2013 06/15/2020 Overview: Images from the original note were not included. [facility] Surgeon: David Salcido M.D. Informed Consent Completed: yes STS Score: 0.771 CAD: No Is intended procedure a CABG: No - is a beta beatriz ordered? No - reason: not indicated H & P completed: Yes PA/LAT: Completed CT: Completed MRI: N/A LE US: N/A Cath: No Echo:Completed EKG: Completed EF %: 58 PI's: N/A Carotid: N/A Mapping: N/A Dental: Completed PFT's: N/A Basename 05/25/13 0950 WBC 7.97 HB 13.0 HCT 39.0 PLT 229 INR 0.9 CREAT 0.95 UA: Normal HCG:N/A ABO/ABO Confirmed: Yes Blood ordered: Yes SA Swab: Yes - results: Pending Last Dose of Anticoagulation: Aspirin Op Note: N/A Pacemaker Check: N/A Consults: none DM: No Cardiac Surgical prep: N/A SIGNATURE: Adeline Anaya CNP CHECKED BY: [email or web address] DATE of SERVICE: 05/25/2013 TIME of SERVICE: 3:50 PM Supervision of other high-ri (V23.89) 05/06/2008 08/16/2009 Routine general medical exam ination at a health care facility 09/25/2007 01/08/2012 Overview: PGF in 01-19: pt has not been back to the conduit helper since that time LDL 84, HDL 37, TG 126 in 10-23 Creat 1 in 10-23 HCT 38.5% in - HCG 276 in 11-20: reportedly about 5 weeks Lab from 11-27-07 noted miscarriage documented as of this encounter (statuses as of 08/01/2023) [facility]10-05-2020 History of Past illness Narrative* Problem Noted Date Diagnosed Date Resolved Date Acute blood loss anemia 06/19/2020 10/0 03/2020 Overview: See coordination of care note. 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 Garcia, now with yazmin Hgb and serum LDH with decrease in reticulocyte count, Dr. Garcia believes this has resolved. Also with h/o LUZ, on rx, normal pre-op H/H On mechanically assisted ventilation 05/26/2013 06/20/2020 Overview: extubated Pre-op testing 05/25/2013 06/15/2020 Overview: Images from the original note were not included. [facility] PRE[facility] Surgeon: David Salcido M.D. Informed Consent Completed: yes STS Score: 0.771 CAD: No Is intended procedure a CABG: No - is a beta beatriz ordered? No - reason: not indicated H & P completed: Yes PA/LAT: Completed CT: Completed MRI: N/A LE US: N/A Cath: No Echo:Completed EKG: Completed EF %: 58 PI's: N/A Carotid: N/A Mapping: N/A Dental: Completed PFT's: N/A Basename 05/25/13 0950 WBC 7.97 HB 13.0 HCT 39.0 PLT 229 INR 0.9 CREAT 0.95 UA: Normal HCG:N/A ABO/ABO Confirmed: Yes Blood ordered: Yes SA Swab: Yes - results: Pending Last Dose of Anticoagulation: Aspirin Op Note: N/A Pacemaker Check: N/A Consults: none DM: No Cardiac Surgical prep: N/A SIGNATURE: Adeline Anaya CNP CHECKED BY: [email or web address] DATE of SERVICE: 05/25/2013 TIME of SERVICE: 3:50 PM Supervision of other high-ri sk (V23.89) 05/06/2008 08/16/2009 Routine general medical exam ination at a health care facility 09/25/2007 01/08/2012 Overview: PGF in 01-19: pt has not been back to the conduit helper since that time LDL 84, HDL 37, TG 126 in 2- Creat 1 in - HCT 38.5% in 2- HCG 276 in 3-08: reportedly about 5 weeks Lab from 3-14-08 noted miscarriage documented as of this encounter (statuses as of 08/06/2023) [facility] History of Past illness Narrative* Problem Noted Date Diagnosed Date Resolved Date Acute blood loss anemia 06/19/202003/2020 Overview: See coordination of care note. 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 Garcia, now with yazmin Hgb and serum LDH with decrease in reticulocyte count, Dr. Garcia believes this has resolved. Also with h/o LUZ, on rx, normal pre-op H/H On mechanically assisted ventilation 05/26/2013 06/20/2020 Overview: extubated Pre-op testing 05/25/2013 06/15/2020 Overview: Images from the original note were not included. [facility] PRE[facility] Surgeon: David Salcido M.D. Informed Consent Completed: yes STS Score: 0.771 CAD: No Is intended procedure a CABG: No - is a beta beatriz ordered? No - reason: not indicated H & P completed: Yes PA/LAT: Completed CT: Completed MRI: N/A LE US: N/A Cath: No Echo:Completed EKG: Completed EF %: 58 PI's: N/A Carotid: N/A Mapping: N/A Dental: Completed PFT's: N/A Basename 05/25/13 0950 WBC 7.97 HB 13.0 HCT 39.0 PLT 229 INR 0.9 CREAT 0.95 UA: Normal HCG:N/A ABO/ABO Confirmed: Yes Blood ordered: Yes SA Swab: Yes - results: Pending Last Dose of Anticoagulation: Aspirin Op Note: N/A Pacemaker Check: N/A Consults: none DM: No Cardiac Surgical prep: N/A SIGNATURE: Adeline Anaya CNP CHECKED BY: roseann DATE of SERVICE: 05/25/2013 TIME of SERVICE: 3:50 PM Supervision of other high-ri sk (V23.89) 05/06/2008 08/16/2009 Routine general medical exam ination at a health care facility 09/25/2007 01/08/2012 Overview: PGF in 01-19: pt has not been back to the conduit helper since that time LDL 84, HDL 37, TG 126 in 10-23 Creat 1 in 10-23 HCT 38.5% in 10-23 HCG 276 in 11-20: reportedly about 5 weeks Lab from 11-27-07 noted miscarriage documented as of this encounter (statuses as of 08/06/2023) [facility] History of Past illness Narrative* Problem Noted Date Diagnosed Date Resolved Date Acute blood loss anemia 06/19/202003/2020 Overview: See coordination of care note. 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 Garcia, now with yazmin Hgb and serum LDH with decrease in reticulocyte count, Dr. Garcia believes this has resolved. Also with h/o LUZ, on rx, normal pre-op H/H On mechanically assisted ventilation 05/26/2013 06/20/2020 Overview: extubated Pre-op testing 05/25/2013 06/15/2020 Overview: Images from the original note were not included. [facility] Surgeon: David Salcido M.D. Informed Consent Completed: yes STS Score: 0.771 CAD: No Is intended procedure a CABG: No - is a beta beatriz ordered? No - reason: not indicated H & P completed: Yes PA/LAT: Completed CT: Completed MRI: N/A LE US: N/A Cath: No Echo:Completed EKG: Completed EF %: 58 PI's: N/A Carotid: N/A Mapping: N/A Dental: Completed PFT's: N/A Basename 05/25/13 0950 WBC 7.97 HB 13.0 HCT 39.0 PLT 229 INR 0.9 CREAT 0.95 UA: Normal HCG:N/A ABO/ABO Confirmed: Yes Blood ordered: Yes SA Swab: Yes - results: Pending Last Dose of Anticoagulation: Aspirin Op Note: N/A Pacemaker Check: N/A Consults: none DM: No Cardiac Surgical prep: N/A SIGNATURE: Adeline Anaya CNP CHECKED BY: roseann DATE of SERVICE: 05/25/2013 TIME of SERVICE: 3:50 PM Supervision of other high-ri sk (V23.89) 05/06/2008 08/16/2009 Routine general medical exam ination at a health care facility 09/25/2007 01/08/2012 Overview: PGF in 01-19: pt has not been back to the conduit helper since that time LDL 84, HDL 37, TG 126 in 10-23 Creat 1 in 10-23 HCT 38.5% in 10-23 HCG 276 in 11-20: reportedly about 5 weeks Lab from 11-27-07 noted miscarriage documented as of this encounter (statuses as of 08/08/2023) [facility] History of Past illness Narrative* Problem Noted Date Diagnosed Date Resolved Date Acute blood loss anemia 06/19/202003/2020 Overview: See coordination of care note. 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 Garcia, now with yazmin Hgb and serum LDH with decrease in reticulocyte count, Dr. Garcia believes this has resolved. Also with h/o LUZ, on rx, normal pre-op H/H On mechanically assisted ventilation 05/26/2013 06/20/2020 Overview: extubated Pre-op testing 05/25/2013 06/15/2020 Overview: Images from the original note were not included. [facility] Surgeon: David Salcido M.D. Informed Consent Completed: yes STS Score: 0.771 CAD: No Is intended procedure a CABG: No - is a beta beatriz ordered? No - reason: not indicated H & P completed: Yes PA/LAT: Completed CT: Completed MRI: N/A LE US: N/A Cath: No Echo:Completed EKG: Completed EF %: 58 PI's: N/A Carotid: N/A Mapping: N/A Dental: Completed PFT's: N/A Basename 05/25/13 0950 WBC 7.97 HB 13.0 HCT 39.0 PLT 229 INR 0.9 CREAT 0.95 UA: Normal HCG:N/A ABO/ABO Confirmed: Yes Blood ordered: Yes SA Swab: Yes - results: Pending Last Dose of Anticoagulation: Aspirin Op Note: N/A Pacemaker Check: N/A Consults: none DM: No Cardiac Surgical prep: N/A SIGNATURE: Adeline Anaya CNP CHECKED BY: roseann DATE of SERVICE: 05/25/2013 TIME of SERVICE: 3:50 PM Supervision of other high-ri sk (V23.89) 05/06/2008 08/16/2009 Routine general medical exam ination at a health care facility 09/25/2007 01/08/2012 Overview: PGF in 01-19: pt has not been back to the conduit helper since that time LDL 84, HDL 37, TG 126 in - Creat 1 in -08 HCT 38.5% in 2- HCG 276 in 11-20: reportedly about 5 weeks Lab from 11-27-07 noted miscarriage documented as of this encounter (statuses as of 08/11/2023) [facility] History of Past illness Narrative* Problem Noted Date Diagnosed Date Resolved Date Acute blood loss anemia 06/19/202003/2020 Overview: See coordination of care note. 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 Garcia, now with yazmin Hgb and serum LDH with decrease in reticulocyte count, Dr. Garcia believes this has resolved. Also with h/o LUZ, on rx, normal pre-op H/H On mechanically assisted ventilation 05/26/2013 06/20/2020 Overview: extubated Pre-op testing 05/25/2013 06/15/2020 Overview: Images from the original note were not included. [facility] Surgeon: David Salcido M.D. Informed Consent Completed: yes STS Score: 0.771 CAD: No Is intended procedure a CABG: No - is a beta beatriz ordered? No - reason: not indicated H & P completed: Yes PA/LAT: Completed CT: Completed MRI: N/A LE US: N/A Cath: No Echo:Completed EKG: Completed EF %: 58 PI's: N/A Carotid: N/A Mapping: N/A Dental: Completed PFT's: N/A Basename 05/25/13 0950 WBC 7.97 HB 13.0 HCT 39.0 PLT 229 INR 0.9 CREAT 0.95 UA: Normal HCG:N/A ABO/ABO Confirmed: Yes Blood ordered: Yes SA Swab: Yes - results: Pending Last Dose of Anticoagulation: Aspirin Op Note: N/A Pacemaker Check: N/A Consults: none DM: No Cardiac Surgical prep: N/A SIGNATURE: Adeline Anaya CNP CHECKED BY: roseann DATE of SERVICE: 05/25/2013 TIME of SERVICE: 3:50 PM Supervision of other high-ri sk (V23.89) 05/06/2008 08/16/2009 Routine general medical exam ination at a health care facility 09/25/2007 01/08/2012 Overview: PGF in 01-19: pt has not been back to the conduit helper since that time LDL 84, HDL 37, TG 126 in 2- Creat 1 in -08 HCT 38.5% in 2-08 HCG 276 in -: reportedly about 5 weeks Lab from 11-27-07 noted miscarriage documented as of this encounter (statuses as of 08/19/2023) [facility] History of Past illness Narrative* Problem Noted Date Diagnosed Date Resolved Date Acute blood loss anemia 06/19/202003/2020 Overview: See coordination of care note. 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 Garcia, now with yazmin Hgb and serum LDH with decrease in reticulocyte count, Dr. Garcia believes this has resolved. Also with h/o LUZ, on rx, normal pre-op H/H On mechanically assisted ventilation 05/26/2013 06/20/2020 Overview: extubated Pre-op testing 05/25/2013 06/15/2020 Overview: Images from the original note were not included. [facility] Surgeon: David Salcido M.D. Informed Consent Completed: yes STS Score: 0.771 CAD: No Is intended procedure a CABG: No - is a beta beatriz ordered? No - reason: not indicated H & P completed: Yes PA/LAT: Completed CT: Completed MRI: N/A LE US: N/A Cath: No Echo:Completed EKG: Completed EF %: 58 PI's: N/A Carotid: N/A Mapping: N/A Dental: Completed PFT's: N/A Basename 05/25/13 0950 WBC 7.97 HB 13.0 HCT 39.0 PLT 229 INR 0.9 CREAT 0.95 UA: Normal HCG:N/A ABO/ABO Confirmed: Yes Blood ordered: Yes SA Swab: Yes - results: Pending Last Dose of Anticoagulation: Aspirin Op Note: N/A Pacemaker Check: N/A Consults: none DM: No Cardiac Surgical prep: N/A SIGNATURE: Adeline Anaya CNP CHECKED BY: roseann DATE of SERVICE: 05/25/2013 TIME of SERVICE: 3:50 PM Supervision of other high-ri sk (V23.89) 05/06/2008 08/16/2009 Routine general medical exam ination at a health care facility 09/25/2007 01/08/2012 Overview: PGF in 01-19: pt has not been back to the conduit helper since that time LDL 84, HDL 37, TG 126 in 10-23 Creat 1 in 10-23 HCT 38.5% in 10-23 HCG 276 in 11-20: reportedly about 5 weeks Lab from 11-27-07 noted miscarriage documented as of this encounter (statuses as of 08/19/2023) [facility] History of Past illness Narrative* Problem Noted Date Diagnosed Date Resolved Date Acute blood loss anemia 06/19/2020 10/0 03/2020 Overview: See coordination of care note. 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 Garcia, now with yazmin Hgb and serum LDH with decrease in reticulocyte count, Dr. Garcia believes this has resolved. Also with h/o LUZ, on rx, normal pre-op H/H On mechanically assisted ventilation 05/26/2013 06/20/2020 Overview: extubated Pre-op testing 05/25/2013 06/15/2020 Overview: Images from the original note were not included. [facility] Surgeon: David Salcido M.D. Informed Consent Completed: yes STS Score: 0.771 CAD: No Is intended procedure a CABG: No - is a beta beatriz ordered? No - reason: not indicated H & P completed: Yes PA/LAT: Completed CT: Completed MRI: N/A LE US: N/A Cath: No Echo:Completed EKG: Completed EF %: 58 PI's: N/A Carotid: N/A Mapping: N/A Dental: Completed PFT's: N/A Basename 05/25/13 0950 WBC 7.97 HB 13.0 HCT 39.0 PLT 229 INR 0.9 CREAT 0.95 UA: Normal HCG:N/A ABO/ABO Confirmed: Yes Blood ordered: Yes SA Swab: Yes - results: Pending Last Dose of Anticoagulation: Aspirin Op Note: N/A Pacemaker Check: N/A Consults: none DM: No Cardiac Surgical prep: N/A SIGNATURE: Adeline Anaya CNP CHECKED BY: roseann DATE of SERVICE: 05/25/2013 TIME of SERVICE: 3:50 PM Supervision of other high-ri sk (V23.89) 05/06/2008 08/16/2009 Routine general medical exam ination at a health care facility 09/25/2007 01/08/2012 Overview: PGF in 01-19: pt has not been back to the conduit helper since that time LDL 84, HDL 37, TG 126 in 10-23 Creat 1 in 10-23 HCT 38.5% in 10-23 HCG 276 in 11-20: reportedly about 5 weeks Lab from 11-27-07 noted miscarriage documented as of this encounter (statuses as of 08/22/2023) [facility] History of Past illness Narrative* Problem Noted Date Diagnosed Date Resolved Date Acute blood loss anemia 06/19/202003/2020 Overview: See coordination of care note. 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 Garcia, now with yazmin Hgb and serum LDH with decrease in reticulocyte count, Dr. Garcia believes this has resolved. Also with h/o LUZ, on rx, normal pre-op H/H On mechanically assisted ventilation 05/26/2013 06/20/2020 Overview: extubated Pre-op testing 05/25/2013 06/15/2020 Overview: Images from the original note were not included. [facility] Surgeon: David Salcido M.D. Informed Consent Completed: yes STS Score: 0.771 CAD: No Is intended procedure a CABG: No - is a beta beatriz ordered? No - reason: not indicated H & P completed: Yes PA/LAT: Completed CT: Completed MRI: N/A LE US: N/A Cath: No Echo:Completed EKG: Completed EF %: 58 PI's: N/A Carotid: N/A Mapping: N/A Dental: Completed PFT's: N/A Basename 05/25/13 0950 WBC 7.97 HB 13.0 HCT 39.0 PLT 229 INR 0.9 CREAT 0.95 UA: Normal HCG:N/A ABO/ABO Confirmed: Yes Blood ordered: Yes SA Swab: Yes - results: Pending Last Dose of Anticoagulation: Aspirin Op Note: N/A Pacemaker Check: N/A Consults: none DM: No Cardiac Surgical prep: N/A SIGNATURE: Adeline Anaya CNP CHECKED BY: roseann DATE of SERVICE: 05/25/2013 TIME of SERVICE: 3:50 PM Supervision of other high-ri sk (V23.89) 05/06/2008 08/16/2009 Routine general medical exam ination at a health care facility 09/25/2007 01/08/2012 Overview: PGF in 01-19: pt has not been back to the conduit helper since that time LDL 84, HDL 37, TG 126 in - Creat 1 in 10-23 HCT 38.5% in 10-23 HCG 276 in 11-20: reportedly about 5 weeks Lab from 11-27-07 noted miscarriage documented as of this encounter (statuses as of 08/23/2023) [facility] Abnormal [facility]ogram- Primary Abnormal mammogram, unspecified [facility] Diagnosis 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 Family history of breast cancer Family history of malignant neoplasm of breast [facility] 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 Diagnosis Malignant neoplasm of female breast, unspecified estrogen receptor status, unspecified laterality, unspecified site of breast (HCC) [facility] Diagnosis At high risk for breast cancer- [facility] Diagnosis Malignant neoplasm of upper-outer quadrant of left breast in female, estrogen receptor negative (HCC)- Primary [facility] Malignant neoplasm of upper-outer quadrant of left breast in female, estrogen receptor negative (HCC)- Primary Enlarged lymph nodes in armpit Enlargement of lymph nodes At risk for lymphedema Other specified conditions influencing health status [facility] Diagnosis Pre-op evaluation- Primary Preoperative examination, unspecified Breast neoplasm, Tis (DCIS), right [facility] Diagnosis Malignant neoplasm of upper-outer quadrant of left breast in female, estrogen receptor negative (HCC)- Primary [facility] Diagnosis Malignant neoplasm of upper-outer quadrant of left breast in female, estrogen receptor negative (HCC)- Primary Breast neoplasm, Tis (DCIS), right [facility] Diagnosis Pre-operative examination- Primary Preoperative examination, unspecified History of aortic valve replacement Heart valve replaced by other means Aortic aneurysm without rupture, unspecified portion of aorta (HCC) Controlled type 2 diabetes mellitus without complication, unspecified whether intermission coordinator insulin use (HCC) Acquired hypothyroidism Unspecified hypothyroidism Gastroesophageal reflux disease, unspecified whether esophagitis present Obesity, Class I, BMI 30-34.9 Obesity, unspecified Essential hypertension Unspecified essential hypertension Renal infarct (HCC) Vascular disorders of kidney Breast neoplasm, Tis (DCIS), right [facility] Diagnosis Malignant neoplasm of upper-outer quadrant of right breast in female, estrogen receptor negative (HCC)- Primary [facility] Diagnosis Breast neoplasm, Tis (DCIS), right- Primary [facility] Diagnosis 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 [facility] Diagnosis Post-operative state- Primary Other postprocedural status [facility] Diagnosis Post-operative state- Primary Other postprocedural status Malignant neoplasm of upper-outer quadrant of left breast in female, estrogen receptor negative (HCC) [facility] Diagnosis Malignant neoplasm of upper-outer quadrant of left breast in female, estrogen receptor negative (HCC)- Primary [facility] Diagnosis Naveen jones drain site pain- Primary Generalized pain Post-operative state Other postprocedural status [facility] Diagnosis Post-operative state- Primary Other postprocedural status Breast neoplasm, Tis (DCIS), right [facility] Diagnosis Malignant neoplasm of overlapping sites of right breast in female, estrogen receptor negative (HCC)- Primary [facility] Diagnosis Post-operative state- Primary Other postprocedural status S/P breast reconstruction Breast replaced by other means S/P mastectomy, right Hx of breast cancer Personal history of malignant neoplasm of breast [facility] Diagnosis Malignant neoplasm of overlapping sites of right breast in female, estrogen receptor negative (HCC)- Primary documented in this encounter [facility] note* Diagnosis Malignant neoplasm of overlapping sites of right breast in female, estrogen receptor negative (HCC)- Primary documented in this encounter [facility] note* Diagnosis Malignant neoplasm of overlapping sites of right breast in female, estrogen receptor negative (HCC)- Primary [facility] Diagnosis Post-operative state- Primary Other postprocedural status Breast neoplasm, Tis (DCIS), right [facility]* Diagnosis Abnormal mammogram Abnormal mammogram, unspecified [facility] Diagnosis Malignant neoplasm of overlapping sites of right breast in female, estrogen receptor negative (HCC)- Primary documented in this encounter [facility] note* Diagnosis Malignant neoplasm of overlapping sites of right breast in female, estrogen receptor negative (HCC)- Primary [facility]* Diagnosis Adjustment disorder with depressed mood- Primary S/P breast reconstruction Breast replaced by other means S/P mastectomy, right Hx of breast cancer Personal history of malignant neoplasm of breast [facility]* Diagnosis Thrush- Primary Candidiasis of mouth [facility]* Diagnosis Leg swelling- Primary Swelling of limb documented in this encounter [facility] note* Diagnosis Malignant neoplasm of upper-outer quadrant of left breast in female, estrogen receptor negative (HCC)- Primary Anxiety associated with cancer diagnosis (HCC) Leg swelling Swelling of limb [facility]* Diagnosis Psychological factor affecting cancer (HCC)- Primary Unspecified psychophysiological malfunction Adjustment disorder with mixed anxiety and depressed mood [facility] Diagnosis Post-operative state- Primary Other postprocedural status Breast neoplasm, Tis (DCIS), right documented in this encounter [facility] for referral (narrative)* Diagnostic Procedure Only (Routine) - Authorized Specialty Diagnoses / Procedures Referred By Contac t Referred To Contact [facility] Diagnoses Malignant neoplasm of upper-outer quadrant of left breast in female, estrogen receptor negative (HCC) Procedures US BREAST LTD RIGHT US BREAST UNI [place] [address] [place] [address] [facility] [address] [place] [address] Referral ID Status Reason Start Date Expiration Date Visits Requested Visits Authorized [id number] Authorized Auto-Generat ed Referral 03/14/2023 04/12/[address] [facility] for referral (narrative)* Outpatient Procedure (Routine) - Authorized Specialty Diagnoses / Procedures Referred By Cindy bishop Referred To Contact [facility] [place] Diagnoses Pre-op evaluation Breast neoplasm, Tis (DCIS), right Procedures ECG COMPLETE ECG ROUTINE ECG W/LEAST 12 LDS W/I&R Theresa Aguirre MD [address] [place] [address] [address] Referral ID Status Reason Start Date Expiration Date Visits Requested Visits Authorized [id number] Authorized Auto-Generat ed Referral 03/21/2023 03/20/[address] [facility] for referral (narrative)* Diagnostic Procedure Only (Routine) - Closed Specialty Diagnoses / Procedures Referred By Cindy bishop Referred To Contact [facility] Diagnoses Abnormal mammogram Procedures JANET DIAGNOSTIC RIGHT DIAGNOSTIC MAMMOGRAPHY COMPUTER-AIDED DETCJ UNI Jasen Frank MD [address] [facility] [place] [address] [facility] Imaging [address] [place] [id number] Referral ID Status Reason Start Date Expiration Date V isits Requested Visits Authorized [id number] Closed Auto-Generate d Referral 02/04/2023 09/14/[address] [facility] for referral (narrative)* Outpatient Procedure (Urgent) - Closed Specialty Diagnoses / Procedures Referred By Cindy bishop Referred To Contact [facility] Diagnoses Leg swelling Procedures US LEG VEIN DVT MIKE VAS LAB DUP-SCAN XTR VEINS COMPLETE BILATERAL STUDY Scotty Garcia DO [address] [place] [address] [facility] [address] [place] [address] Referral ID Status Reason Start Date Expiration Date V isits Requested Visits Authorized [id number] Closed Auto-Generate d Referral 08/19/2023 08/18/2024 1 1 [facility] for visit Narrative* Diagnostic Procedure Only (Routine) - Closed Specialty Diagnoses / Procedures Referred By Cindy bishop Referred To Contact [facility] Diagnoses Abnormal mammogram Procedures JANET DIAGNOSTIC RIGHT DIAGNOSTIC MAMMOGRAPHY COMPUTER-AIDED DETCJ UNI Jasen Frank MD [address] [facility] [place] [address] Br Imaging [address] [place] [address] Referral ID Status Reason Start Date Expiration Date V isits Requested Visits Authorized [id number] Closed Auto-Generate d Referral 02/04/2023 09/14/2023 1 1 [facility] Instructions Name Dates Details BMI 33.0-33.9,adult : How to access health information online - Detail Indication:BMI 33.0-33.9,adult BMI 33.0-33.9,adult : Patien t Instructions Indication:BMI 33.0-33.9,adult Nonsmoker : How to access he alth information online Indication:Nonsmoker Nonsmoker : How to access he alth information online - Detail Indication:Nonsmoker Nonsmoker : Patient Instruct ions Indication:Nonsmoker BMI 34.0-34.9,adult : How to access health information online Indication:BMI 34.0-34.9,adult BMI 34.0-34.9,adult : How to access health information online - Detail Indication:BMI 34.0-34.9,adult BMI 34.0-34.9,adult : Patien t Instructions Indication:BMI 34.0-34.9,adult Diabetes mellitus type 2, un controlled (Renamed from Uncontrolled type 2 diabetes mellitus) : How to access health information online Indication:Diabetes mellitus type 2, uncontrolled (Renamed from Uncontrolled type 2 diabetes mellitus) Diabetes mellitus type 2, un controlled (Renamed from Uncontrolled type 2 diabetes mellitus) : How to access health information online - Detail Indication:Diabetes mellitus type 2, uncontrolled (Renamed from Uncontrolled type 2 diabetes mellitus) Diabetes mellitus type 2, un controlled (Renamed from Uncontrolled type 2 diabetes mellitus) : Patient Instructions Indication:Diabetes mellitus type 2, uncontrolled (Renamed from Uncontrolled type 2 diabetes mellitus) BMI 33.0-33.9,adult : How to access health information online Indication:BMI 33.0-33.9,adult Encounter for pre-employment examination : How to access health information online Indication:Encounter for pre-employment examination Encounter for pre-employment examination : How to access health information online - Detail Indication:Encounter for pre-employment examination Encounter for pre-employment examination : Patient Instructions Indication:Encounter for pre-employment examination Cough : Patient Instructions Indication:Cough Name Dates Details How to access health informa tion online - Detail Indication:BMI 33.0-33.9,adult Start:05-Jun-2018 Instruction Type:Patient Education Patient Instructions Indication:BMI 33.0-33.9,adult Start:05-Jun-2018 Instruction Type:Provider Instructions for Treatment How to access health informa tion online Indication:Nonsmoker Start:29-May-2018 Instruction Type:Patient Education How to access health informa tion online - Detail Indication:Nonsmoker Start:29-May-2018 Instruction Type:Patient Education Patient Instructions Indication:Nonsmoker Start:29-May-2018 Instruction Type:Provider Instructions for Treatment How to access health informa tion online Indication:Nonsmoker Start:21-May-2018 Instruction Type:Patient Education How to access health informa tion online - Detail Indication:Nonsmoker Start:21-May-2018 Instruction Type:Patient Education Patient Instructions Indication:Nonsmoker Start:21-May-2018 Instruction Type:Provider Instructions for Treatment How to access health informa tion online Indication:BMI 34.0-34.9,adult Start:14-May-2018 Instruction Type:Patient Education How to access health informa tion online - Detail Indication:BMI 34.0-34.9,adult Start:14-May-2018 Instruction Type:Patient Education Patient Instructions Indication:BMI 34.0-34.9,adult Start:14-May-2018 Instruction Type:Provider Instructions for Treatment How to access health informa tion online Indication:Diabetes mellitus type 2, uncontrolled (Renamed from Uncontrolled type 2 diabetes mellitus) Start:14-Jan-2018 Instruction Type:Patient Education How to access health informa tion online - Detail Indication:Diabetes mellitus type 2, uncontrolled (Renamed from Uncontrolled type 2 diabetes mellitus) Start:14-Jan-2018 Instruction Type:Patient Education Patient Instructions Indication:Diabetes mellitus type 2, uncontrolled (Renamed from Uncontrolled type 2 diabetes mellitus) Start:14-Jan-2018 Instruction Type:Provider Instructions for Treatment How to access health informa tion online Indication:Diabetes mellitus type 2, uncontrolled (Renamed from Uncontrolled type 2 diabetes mellitus) Start:10-Oct-2017 Instruction Type:Patient Education How to access health informa tion online - Detail Indication:Diabetes mellitus type 2, uncontrolled (Renamed from Uncontrolled type 2 diabetes mellitus) Start:10-Oct-2017 Instruction Type:Patient Education Patient Instructions Indication:Diabetes mellitus type 2, uncontrolled (Renamed from Uncontrolled type 2 diabetes mellitus) Start:10-Oct-2017 Instruction Type:Provider Instructions for Treatment How to access health informa tion online Indication:BMI 33.0-33.9,adult Start:30-Jun-2017 Instruction Type:Patient Education How to access health informa tion online - Detail Indication:BMI 33.0-33.9,adult Start:30-Jun-2017 Instruction Type:Patient Education Patient Instructions Indication:BMI 33.0-33.9,adult Start:30-Jun-2017 Instruction Type:Provider Instructions for Treatment How to access health informa tion online Indication:Nonsmoker Start:12-Jun-2017 Instruction Type:Patient Education How to access health informa tion online - Detail Indication:Nonsmoker Start:12-Jun-2017 Instruction Type:Patient Education Patient Instructions Indication:Nonsmoker Start:12-Jun-2017 Instruction Type:Provider Instructions for Treatment How to access health informa tion online Indication:BMI 34.0-34.9,adult Start:02-Jun-2017 Instruction Type:Patient Education How to access health informa tion online - Detail Indication:BMI 34.0-34.9,adult Start:02-Jun-2017 Instruction Type:Patient Education Patient Instructions Indication:BMI 34.0-34.9,adult Start:02-Jun-2017 Instruction Type:Provider Instructions for Treatment How to access health informa tion online Indication:Diabetes mellitus type 2, uncontrolled (Renamed from Uncontrolled type 2 diabetes mellitus) Start:20-Jun-2016 Instruction Type:Patient Education How to access health informa tion online - Detail Indication:Diabetes mellitus type 2, uncontrolled (Renamed from Uncontrolled type 2 diabetes mellitus) Start:20-Jun-2016 Instruction Type:Patient Education Patient Instructions Indication:Diabetes mellitus type 2, uncontrolled (Renamed from Uncontrolled type 2 diabetes mellitus) Start:20-Jun-2016 Instruction Type:Provider Instructions for Treatment How to access health informa tion online Indication:Encounter for pre-employment examination Start:12-Jun-2015 Instruction Type:Patient Education How to access health informa tion online - Detail Indication:Encounter for pre-employment examination Start:12-Jun-2015 Instruction Type:Patient Education Patient Instructions Indication:Encounter for pre-employment examination Start:12-Jun-2015 Instruction Type:Provider Instructions for Treatment How to access health informa tion online - Detail Indication:Encounter for pre-employment examination Start:27-May-2014 Instruction Type:Patient Education Patient Instructions Indication:Cough Start:18-May-2013 Instruction Type:Provider Instructions for Treatment Name Dates Details How to access health informa tion online - Detail Indication:BMI 33.0-33.9,adult Start:05-Jun-2018 Instruction Type:Patient Education Patient Instructions Indication:BMI 33.0-33.9,adult Start:05-Jun-2018 Instruction Type:Provider Instructions for Treatment How to access health informa tion online Indication:Nonsmoker Start:29-May-2018 Instruction Type:Patient Education How to access health informa tion online - Detail Indication:Nonsmoker Start:29-May-2018 Instruction Type:Patient Education Patient Instructions Indication:Nonsmoker Start:29-May-2018 Instruction Type:Provider Instructions for Treatment How to access health informa tion online Indication:Nonsmoker Start:21-May-2018 Instruction Type:Patient Education How to access health informa tion online - Detail Indication:Nonsmoker Start:21-May-2018 Instruction Type:Patient Education Patient Instructions Indication:Nonsmoker Start:21-May-2018 Instruction Type:Provider Instructions for Treatment How to access health informa tion online Indication:BMI 34.0-34.9,adult Start:14-May-2018 Instruction Type:Patient Education How to access health informa tion online - Detail Indication:BMI 34.0-34.9,adult Start:14-May-2018 Instruction Type:Patient Education Patient Instructions Indication:BMI 34.0-34.9,adult Start:14-May-2018 Instruction Type:Provider Instructions for Treatment How to access health informa tion online Indication:Diabetes mellitus type 2, uncontrolled (Renamed from Uncontrolled type 2 diabetes mellitus) Start:14-Jan-2018 Instruction Type:Patient Education How to access health informa tion online - Detail Indication:Diabetes mellitus type 2, uncontrolled (Renamed from Uncontrolled type 2 diabetes mellitus) Start:14-Jan-2018 Instruction Type:Patient Education Patient Instructions Indication:Diabetes mellitus type 2, uncontrolled (Renamed from Uncontrolled type 2 diabetes mellitus) Start:14-Jan-2018 Instruction Type:Provider Instructions for Treatment How to access health informa tion online Indication:Diabetes mellitus type 2, uncontrolled (Renamed from Uncontrolled type 2 diabetes mellitus) Start:10-Oct-2017 Instruction Type:Patient Education How to access health informa tion online - Detail Indication:Diabetes mellitus type 2, uncontrolled (Renamed from Uncontrolled type 2 diabetes mellitus) Start:10-Oct-2017 Instruction Type:Patient Education Patient Instructions Indication:Diabetes mellitus type 2, uncontrolled (Renamed from Uncontrolled type 2 diabetes mellitus) Start:10-Oct-2017 Instruction Type:Provider Instructions for Treatment How to access health informa tion online Indication:BMI 33.0-33.9,adult Start:30-Jun-2017 Instruction Type:Patient Education How to access health informa tion online - Detail Indication:BMI 33.0-33.9,adult Start:30-Jun-2017 Instruction Type:Patient Education Patient Instructions Indication:BMI 33.0-33.9,adult Start:30-Jun-2017 Instruction Type:Provider Instructions for Treatment How to access health informa tion online Indication:Nonsmoker Start:12-Jun-2017 Instruction Type:Patient Education How to access health informa tion online - Detail Indication:Nonsmoker Start:12-Jun-2017 Instruction Type:Patient Education Patient Instructions Indication:Nonsmoker Start:12-Jun-2017 Instruction Type:Provider Instructions for Treatment How to access health informa tion online Indication:BMI 34.0-34.9,adult Start:02-Jun-2017 Instruction Type:Patient Education How to access health informa tion online - Detail Indication:BMI 34.0-34.9,adult Start:02-Jun-2017 Instruction Type:Patient Education Patient Instructions Indication:BMI 34.0-34.9,adult Start:02-Jun-2017 Instruction Type:Provider Instructions for Treatment How to access health informa tion online Indication:Diabetes mellitus type 2, uncontrolled (Renamed from Uncontrolled type 2 diabetes mellitus) Start:20-Jun-2016 Instruction Type:Patient Education How to access health informa tion online - Detail Indication:Diabetes mellitus type 2, uncontrolled (Renamed from Uncontrolled type 2 diabetes mellitus) Start:20-Jun-2016 Instruction Type:Patient Education Patient Instructions Indication:Diabetes mellitus type 2, uncontrolled (Renamed from Uncontrolled type 2 diabetes mellitus) Start:20-Jun-2016 Instruction Type:Provider Instructions for Treatment How to access health informa tion online Indication:Encounter for pre-employment examination Start:12-Jun-2015 Instruction Type:Patient Education How to access health informa tion online - Detail Indication:Encounter for pre-employment examination Start:12-Jun-2015 Instruction Type:Patient Education Patient Instructions Indication:Encounter for pre-employment examination Start:12-Jun-2015 Instruction Type:Provider Instructions for Treatment How to access health informa tion online - Detail Indication:Encounter for pre-employment examination Start:27-May-2014 Instruction Type:Patient Education Patient Instructions Indication:Cough Start:18-May-2013 Instruction Type:Provider Instructions for Treatment Summary Purpose Family History No Family History Records FoundNo Family History Records FoundNo Family History Records FoundNo Family History Records Found Advance Directives No Advanced Directives Records FoundDocuments on File Type Date Recorded 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 Advance Directive(s) 06/16/2020 9:46 AM Documents on File Type Date Recorded 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 Advance Directive(s) 06/16/2020 9:46 AM Procedure Findings Note HNO ID: [id number] Author: Tee person (Chris Ruano Service: Anesthesiology Author Type: Nurse [employer] Professor Type: Anesthesia Procedure Notes Filed: 10/19/2020 8:08 AM Note Text: ANESTHESIOLOGY PROCEDURE NOTE Airway General Information Procedure Start Time/Medication Administration: 10/19/2020 7:40 AM Patient location during procedure: OR Timeout Performed Pre-procedure: timeout performed Consent Obtained: Yes Patient identity confirmed: arm band Staffing Performed by: anesthesiologist Indications and Patient Condition Preoxygenated: yes Patient position: sniffing Manual In-Line Stabilization: No Difficult Mask: Yes anesthesia circuit Method: asleep Cricoid Pressure: Yes Final Airway Details Final airway type: endotracheal airway Final Endotracheal Airway: ETT Cuffed: yes Successful intubation technique: direct laryngoscopy Blade: Katie ETT size (mm): 3.0 Placement verified by: chest auscultation and capnometry Cormack-Lehane Classification: grade IIa - partial view of glottis Airway not (more content not included)... Note HNO ID: [id number] Author: Tee person (Celina) Alden Service: Anesthesiology Author Type: Nurse [employer] Professor Type: Anesthesia Procedure Notes Filed: 10/19/2020 8:18 AM Note Text: ANESTHESIOLOGY PROCEDURE NOTE PIV General Information Patient Location: OR Staffing Performed by: CELINA Preparation Sterility Preparation: hand hygiene performed prior to procedure Sterility Technique Not Completely Performed Due to Extreme Emergency: Yes Procedure Details Indication: need for IV access Needle Size/Type: 18 gauge angiocath Orientation: Left Location: Hand SIGNATURE: Stacey Ruano APRN.CRNA PATIENT NAME: Kimberly Reis DATE: October 19, 2020 TIME: 8:18 AM CSN: [id number] Reason for Referral Specialty Diagnoses / Procedures Referred By Cindy bishop Referred To Contact MR IMAGING Diagnoses Malignant neoplasm of female breast, unspecified estrogen receptor status, unspecified laterality, unspecified site of breast (HCC) Procedures MRI BREAST WO/W IVCON BILATERAL MRI BREAST WITHOUT&WITH CONTRAST W/[place] [address] [place] [address] Mr Imaging Referral ID Status Reason Start Date Expiration Date V isits Requested Visits Authorized [id number] Closed Auto-Generate d Referral 02/13/2023 03/14/2024 1 1 Specialty Diagnoses / Procedures Referred By Cindy bishop Referred To Contact [facility] Diagnoses Breast neoplasm, Tis (DCIS), right Procedures CONSULT TO BREAST REHAB PROGRAM THERAPEUTIC EXERCISES RE, EA 15 MIN. THERAPEUT ACTVITY DIRECT PT CONTACT EACH 15 MIN Baldomero Manzanares PA-C [address] [place] [address] [facility] [place] [address] Referral ID Status Reason Start Date Expiration Date Visits Requested Visits Authorized [id number] Authorized PCP Requested Referral Auto-Generate d Referral 04/30/2023 04/29/2024 1 1 Specialty Diagnoses / Procedures Referred By Contac t Referred To Contact Diagnoses Post-operative state María Ceron MD [address] [place] [address] Referral ID Status Reason Start Date Expiration Date Visits Re quested Visits Authorized [id number] Closed 1 1 Specialty Diagnoses / Procedures Referred By Contac t Referred To Contact [facility] Diagnoses Post-operative state Procedures CONSULT TO BREAST REHAB PROGRAM THERAPEUTIC EXERCISES RE, EA 15 MIN. THERAPEUT ACTVITY DIRECT PT CONTACT EACH 15 MIN María Ceron MD [address] [place] [address] [facility] [place] [address] Referral ID Status Reason Start Date Expiration Date Visits Requested Visits Authorized [id number] Authorized PCP Requested Referral Auto-Generate d Referral 05/01/2023 04/30/2024 1 1 Additional Source Comments INFORMATION SOURCE (unrecogn ized section and content) DATE CREATED AUTHOR AUTHOR'S ORGANIZ ATION 09/03/2023 [facility] DATE CREATED AUTHOR AUTHOR'S ORGANIZ ATION 09/04/2023 [facility] DATE CREATED AUTHOR AUTHOR'S ORGANIZ ATION 09/06/2023 [facility] Source Comments (unrecognize d section and content) In the event this informatio n is protected by the Federal Confidentiality of Alcohol and Drug Abuse Patient Records regulations: The Federal rules restrict any use of the information to criminally investigate or prosecute any alcohol or drug abuse patient.[facility] the event this information is protected by the Federal Confidentiality of Alcohol and Drug Abuse Patient Records regulations: The Federal rules restrict any use of the information to criminally investigate or prosecute any alcohol or drug abuse patient.[facility] the event this information is protected by the Federal Confidentiality of Alcohol and Drug Abuse Patient Records regulations: The Federal rules restrict any use of the information to criminally investigate or prosecute any alcohol or drug abuse patient.[facility] the event this information is protected by the Federal Confidentiality of Alcohol and Drug Abuse Patient Records regulations: The Federal rules restrict any use of the information to criminally investigate or prosecute any alcohol or drug abuse patient.[facility] the event this information is protected by the Federal Confidentiality of Alcohol and Drug Abuse Patient Records regulations: The Federal rules restrict any use of the information to criminally investigate or prosecute any alcohol or drug abuse patient.[facility] the event this information is protected by the Federal Confidentiality of Alcohol and Drug Abuse Patient Records regulations: The Federal rules restrict any use of the information to criminally investigate or prosecute any alcohol or drug abuse patient.[facility] the event this information is protected by the Federal Confidentiality of Alcohol and Drug Abuse Patient Records regulations: The Federal rules restrict any use of the information to criminally investigate or prosecute any alcohol or drug abuse patient.[facility] the event this information is protected by the Federal Confidentiality of Alcohol and Drug Abuse Patient Records regulations: The Federal rules restrict any use of the information to criminally investigate or prosecute any alcohol or drug abuse patient.[facility] the event this information is protected by the Federal Confidentiality of Alcohol and Drug Abuse Patient Records regulations: The Federal rules restrict any use of the information to criminally investigate or prosecute any alcohol or drug abuse patient.[facility] the event this information is protected by the Federal Confidentiality of Alcohol and Drug Abuse Patient Records regulations: The Federal rules restrict any use of the information to criminally investigate or prosecute any alcohol or drug abuse patient.[facility] the event this information is protected by the Federal Confidentiality of Alcohol and Drug Abuse Patient Records regulations: The Federal rules restrict any use of the information to criminally investigate or prosecute any alcohol or drug abuse patient.[facility] the event this information is protected by the Federal Confidentiality of Alcohol and Drug Abuse Patient Records regulations: The Federal rules restrict any use of the information to criminally investigate or prosecute any alcohol or drug abuse patient.[facility] the event this information is protected by the Federal Confidentiality of Alcohol and Drug Abuse Patient Records regulations: The Federal rules restrict any use of the information to criminally investigate or prosecute any alcohol or drug abuse patient.[facility] the event this information is protected by the Federal Confidentiality of Alcohol and Drug Abuse Patient Records regulations: The Federal rules restrict any use of the information to criminally investigate or prosecute any alcohol or drug abuse patient.[facility] the event this information is protected by the Federal Confidentiality of Alcohol and Drug Abuse Patient Records regulations: The Federal rules restrict any use of the information to criminally investigate or prosecute any alcohol or drug abuse patient.[facility] the event this information is protected by the Federal Confidentiality of Alcohol and Drug Abuse Patient Records regulations: The Federal rules restrict any use of the information to criminally investigate or prosecute any alcohol or drug abuse patient.[facility] the event this information is protected by the Federal Confidentiality of Alcohol and Drug Abuse Patient Records regulations: The Federal rules restrict any use of the information to criminally investigate or prosecute any alcohol or drug abuse patient.[facility] the event this information is protected by the Federal Confidentiality of Alcohol and Drug Abuse Patient Records regulations: The Federal rules restrict any use of the information to criminally investigate or prosecute any alcohol or drug abuse patient.[facility] the event this information is protected by the Federal Confidentiality of Alcohol and Drug Abuse Patient Records regulations: The Federal rules restrict any use of the information to criminally investigate or prosecute any alcohol or drug abuse patient.[facility] the event this information is protected by the Federal Confidentiality of Alcohol and Drug Abuse Patient Records regulations: The Federal rules restrict any use of the information to criminally investigate or prosecute any alcohol or drug abuse patient.[facility] HospitalIn the event this information is protected by the Federal Confidentiality of Alcohol and Drug Abuse Patient Records regulations: The Federal rules restrict any use of the information to criminally investigate or prosecute any alcohol or drug abuse patient.[facility] HospitalIn the event this information is protected by the Federal Confidentiality of Alcohol and Drug Abuse Patient Records regulations: The Federal rules restrict any use of the information to criminally investigate or prosecute any alcohol or drug abuse patient.[facility] HospitalIn the event this information is protected by the Federal Confidentiality of Alcohol and Drug Abuse Patient Records regulations: The Federal rules restrict any use of the information to criminally investigate or prosecute any alcohol or drug abuse patient.[facility] HospitalIn the event this information is protected by the Federal Confidentiality of Alcohol and Drug Abuse Patient Records regulations: The Federal rules restrict any use of the information to criminally investigate or prosecute any alcohol or drug abuse patient.[facility] HospitalIn the event this information is protected by the Federal Confidentiality of Alcohol and Drug Abuse Patient Records regulations: The Federal rules restrict any use of the information to criminally investigate or prosecute any alcohol or drug abuse patient.[facility] HospitalIn the event this information is protected by the Federal Confidentiality of Alcohol and Drug Abuse Patient Records regulations: The Federal rules restrict any use of the information to criminally investigate or prosecute any alcohol or drug abuse patient.[facility] HospitalIn the event this information is protected by the Federal Confidentiality of Alcohol and Drug Abuse Patient Records regulations: The Federal rules restrict any use of the information to criminally investigate or prosecute any alcohol or drug abuse patient.[facility] HospitalIn the event this information is protected by the Federal Confidentiality of Alcohol and Drug Abuse Patient Records regulations: The Federal rules restrict any use of the information to criminally investigate or prosecute any alcohol or drug abuse patient.[facility] HospitalIn the event this information is protected by the Federal Confidentiality of Alcohol and Drug Abuse Patient Records regulations: The Federal rules restrict any use of the information to criminally investigate or prosecute any alcohol or drug abuse patient.[facility] HospitalIn the event this information is protected by the Federal Confidentiality of Alcohol and Drug Abuse Patient Records regulations: The Federal rules restrict any use of the information to criminally investigate or prosecute any alcohol or drug abuse patient.[facility] HospitalIn the event this information is protected by the Federal Confidentiality of Alcohol and Drug Abuse Patient Records regulations: The Federal rules restrict any use of the information to criminally investigate or prosecute any alcohol or drug abuse patient.[facility] HospitalIn the event this information is protected by the Federal Confidentiality of Alcohol and Drug Abuse Patient Records regulations: The Federal rules restrict any use of the information to criminally investigate or prosecute any alcohol or drug abuse patient.[facility] HospitalIn the event this information is protected by the Federal Confidentiality of Alcohol and Drug Abuse Patient Records regulations: The Federal rules restrict any use of the information to criminally investigate or prosecute any alcohol or drug abuse patient.[facility] HospitalIn the event this information is protected by the Federal Confidentiality of Alcohol and Drug Abuse Patient Records regulations: The Federal rules restrict any use of the information to criminally investigate or prosecute any alcohol or drug abuse patient.[facility] HospitalIn the event this information is protected by the Federal Confidentiality of Alcohol and Drug Abuse Patient Records regulations: The Federal rules restrict any use of the information to criminally investigate or prosecute any alcohol or drug abuse patient.[facility] HospitalIn the event this information is protected by the Federal Confidentiality of Alcohol and Drug Abuse Patient Records regulations: The Federal rules restrict any use of the information to criminally investigate or prosecute any alcohol or drug abuse patient.[facility] HospitalIn the event this information is protected by the Federal Confidentiality of Alcohol and Drug Abuse Patient Records regulations: The Federal rules restrict any use of the information to criminally investigate or prosecute any alcohol or drug abuse patient.[facility] HospitalIn the event this information is protected by the Federal Confidentiality of Alcohol and Drug Abuse Patient Records regulations: The Federal rules restrict any use of the information to criminally investigate or prosecute any alcohol or drug abuse patient.[facility] HospitalIn the event this information is protected by the Federal Confidentiality of Alcohol and Drug Abuse Patient Records regulations: The Federal rules restrict any use of the information to criminally investigate or prosecute any alcohol or drug abuse patient.[facility] HospitalIn the event this information is protected by the Federal Confidentiality of Alcohol and Drug Abuse Patient Records regulations: The Federal rules restrict any use of the information to criminally investigate or prosecute any alcohol or drug abuse patient.[facility] HospitalIn the event this information is protected by the Federal Confidentiality of Alcohol and Drug Abuse Patient Records regulations: The Federal rules restrict any use of the information to criminally investigate or prosecute any alcohol or drug abuse patient.[facility] HospitalIn the event this information is protected by the Federal Confidentiality of Alcohol and Drug Abuse Patient Records regulations: The Federal rules restrict any use of the information to criminally investigate or prosecute any alcohol or drug abuse patient.[facility] HospitalIn the event this information is protected by the Federal Confidentiality of Alcohol and Drug Abuse Patient Records regulations: The Federal rules restrict any use of the information to criminally investigate or prosecute any alcohol or drug abuse patient.[facility] HospitalIn the event this information is protected by the Federal Confidentiality of Alcohol and Drug Abuse Patient Records regulations: The Federal rules restrict any use of the information to criminally investigate or prosecute any alcohol or drug abuse patient.[facility] HospitalIn the event this information is protected by the Federal Confidentiality of Alcohol and Drug Abuse Patient Records regulations: The Federal rules restrict any use of the information to criminally investigate or prosecute any alcohol or drug abuse patient.[facility] HospitalIn the event this information is protected by the Federal Confidentiality of Alcohol and Drug Abuse Patient Records regulations: The Federal rules restrict any use of the information to criminally investigate or prosecute any alcohol or drug abuse patient.[facility] HospitalIn the event this information is protected by the Federal Confidentiality of Alcohol and Drug Abuse Patient Records regulations: The Federal rules restrict any use of the information to criminally investigate or prosecute any alcohol or drug abuse patient.[facility]In the event this information is protected by the Federal Confidentiality of Alcohol and Drug Abuse Patient Records regulations: The Federal rules restrict any use of the information to criminally investigate or prosecute any alcohol or drug abuse patient.[facility] HospitalIn the event this information is protected by the Federal Confidentiality of Alcohol and Drug Abuse Patient Records regulations: The Federal rules restrict any use of the information to criminally investigate or prosecute any alcohol or drug abuse patient.[facility] HospitalIn the event this information is protected by the Federal Confidentiality of Alcohol and Drug Abuse Patient Records regulations: The Federal rules restrict any use of the information to criminally investigate or prosecute any alcohol or drug abuse patient.[facility] HospitalIn the event this information is protected by the Federal Confidentiality of Alcohol and Drug Abuse Patient Records regulations: The Federal rules restrict any use of the information to criminally investigate or prosecute any alcohol or drug abuse patient.[facility] HospitalIn the event this information is protected by the Federal Confidentiality of Alcohol and Drug Abuse Patient Records regulations: The Federal rules restrict any use of the information to criminally investigate or prosecute any alcohol or drug abuse patient.[facility] HospitalIn the event this information is protected by the Federal Confidentiality of Alcohol and Drug Abuse Patient Records regulations: The Federal rules restrict any use of the information to criminally investigate or prosecute any alcohol or drug abuse patient.[facility] HospitalIn the event this information is protected by the Federal Confidentiality of Alcohol and Drug Abuse Patient Records regulations: The Federal rules restrict any use of the information to criminally investigate or prosecute any alcohol or drug abuse patient.[facility] HospitalIn the event this information is protected by the Federal Confidentiality of Alcohol and Drug Abuse Patient Records regulations: The Federal rules restrict any use of the information to criminally investigate or prosecute any alcohol or drug abuse patient.[facility] HospitalIn the event this information is protected by the Federal Confidentiality of Alcohol and Drug Abuse Patient Records regulations: The Federal rules restrict any use of the information to criminally investigate or prosecute any alcohol or drug abuse patient.[facility] HospitalIn the event this information is protected by the Federal Confidentiality of Alcohol and Drug Abuse Patient Records regulations: The Federal rules restrict any use of the information to criminally investigate or prosecute any alcohol or drug abuse patient.[facility] HospitalIn the event this information is protected by the Federal Confidentiality of Alcohol and Drug Abuse Patient Records regulations: The Federal rules restrict any use of the information to criminally investigate or prosecute any alcohol or drug abuse patient.[facility] HospitalIn the event this information is protected by the Federal Confidentiality of Alcohol and Drug Abuse Patient Records regulations: The Federal rules restrict any use of the information to criminally investigate or prosecute any alcohol or drug abuse patient.[facility] HospitalIn the event this information is protected by the Federal Confidentiality of Alcohol and Drug Abuse Patient Records regulations: The Federal rules restrict any use of the information to criminally investigate or prosecute any alcohol or drug abuse patient.[facility] HospitalIn the event this information is protected by the Federal Confidentiality of Alcohol and Drug Abuse Patient Records regulations: The Federal rules restrict any use of the information to criminally investigate or prosecute any alcohol or drug abuse patient.[facility] HospitalIn the event this information is protected by the Federal Confidentiality of Alcohol and Drug Abuse Patient Records regulations: The Federal rules restrict any use of the information to criminally investigate or prosecute any alcohol or drug abuse patient.[facility] HospitalIn the event this information is protected by the Federal Confidentiality of Alcohol and Drug Abuse Patient Records regulations: The Federal rules restrict any use of the information to criminally investigate or prosecute any alcohol or drug abuse patient.[facility] HospitalIn the event this information is protected by the Federal Confidentiality of Alcohol and Drug Abuse Patient Records regulations: The Federal rules restrict any use of the information to criminally investigate or prosecute any alcohol or drug abuse patient.[facility] HospitalIn the event this information is protected by the Federal Confidentiality of Alcohol and Drug Abuse Patient Records regulations: The Federal rules restrict any use of the information to criminally investigate or prosecute any alcohol or drug abuse patient.[facility] HospitalIn the event this information is protected by the Federal Confidentiality of Alcohol and Drug Abuse Patient Records regulations: The Federal rules restrict any use of the information to criminally investigate or prosecute any alcohol or drug abuse patient.[facility] Reason for Visit (unrecogniz ed section and content) Specialty Diagnoses / Procedures Referred By Cindy t Referred To Contact [facility] Diagnoses Breast neoplasm, Tis (DCIS), right Procedures CONSULT TO BREAST REHAB PROGRAM THERAPEUTIC EXERCISES RE, EA 15 MIN. 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 Reason Comments Breast Cancer Reason Comments New Reason Comments Results Reason Comments Radiology MRI Specialty Diagnoses / Procedures [facility] To Contact [facility] Diagnoses Malignant neoplasm of female breast, unspecified estrogen receptor status, unspecified laterality, unspecified site of breast (HCC) Procedures MRI BREAST WO/W IVCON BILATERAL MRI BREAST WITHOUT&WITH CONTRAST W/[place] [address] [place] [id number] [facility] Referral ID Status Reason Start Date Expiration Date V isits Requested Visits Authorized [id number] Closed Auto-Generate d Referral 02/13/2023 03/14/2024 1 1 Reason Comments PHOTOS TAKEN Reason Comments New Patient Right breast cancer Reason Onset 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 Comments 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 03/17/2023 Reason Comments Follow Up Reason Comments Patient Education RIGHT mastectomy wit h SN bx and reconstruction (TE) Reason Comments PreOp Call Reason Comments Results LEFT breast mass Reason Comments Education Of Patient/family Specialty Diagnoses / Procedures [facility] Referred To Contact Diagnoses Breast neoplasm, Tis (DCIS), right Breast neoplasm, Tis (DCIS), right [D05.11] Procedures MASTECTOMY, SIMPLE, COMPLETE INTRAOP SENTINEL LYMPH NODE ID W/DYE INJECTION BX/EXC LYMPH NODE OPEN DEEP AXILLARY NODE AXILLARY LYMPHADENECTOMY COMPLETE BREAST RECONSTRUC W TISS EXPANDR IMPLNT BIO IMPLNT FOR SOFT TISSUE REINFORCEMENT INJ RADIOACTIVE TRACER FOR ID OF SENTINEL NODE EXC CYST/ABERRANT BREAST TISSUE OPEN 1/> LESION MASTECTOMY SIMPLE INTRAOPERATIVE ID OF SENTINEL LYMPH NODE(S) INCL'D INJECTION OF NON-RAD DYE WHEN PERFORMED BIOPSY NODE SENTINEL AXILLARY LYMPHADENECTOMY AXILLARY COMPLETE [facility] [address] [place] [address] Referral ID Status Reason Start Date Expiration Date Visits Re quested Visits Authorized [id number] 1 1 Reason Comments Post Op Call Reason Comments Post Op Follow Up Reason Comments Patient Question Reason Comments New Patient Reason Comments Post Op Reason Comments Needs Prescription for Diflucan Reason Comments Post Op Reason Comments Established Patient Reason Comments PT Eval Specialty Diagnoses / Procedures Referred By Contac t Referred To Contact [facility] Diagnoses Post-operative state Procedures CONSULT TO BREAST REHAB PROGRAM THERAPEUTIC EXERCISES RE, EA 15 MIN. 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 (ER-) sign consent first sim talk 11am sim 11:30am Location: [facility] SIM[facility]ATOR Activity: SIM SCHED NOTE 3D 25FX PLUS SIM Procedures SIMULATION 3D CONFORMAL 3D 25FX [place] [address] [place] [address] Josefina Garcia MD, [address] [place] [address] Referral ID Status Reason Start Date Expiration Date V isits Requested Visits Authorized [id number] Authorized 06/24/2023 09/21/2023 26 26 Reason Comments Radiotherapy On-treatment Visit Specialty Diagnoses / Procedures Referred By Contac t Referred To Contact Physical Therapy / PHYSICAL THERAPY Diagnoses Post-operative state Procedures PHYSICAL THERAPY EVALUATION HIGH COMPLEX 45 MINS THERAPEUTIC EXERCISES RE, EA 15 MIN. María Ceron MD [address] [place] [address] Kassie Colindres PT Referral ID Status Reason Start Date Expiration Date V isits Requested Visits Authorized [id number] Authorized 06/24/2023 09/14/2023 19 19 Reason Comments Sore Throat Reason Comments Mouth Sores Sore throat, possibl e thrush x 4 days Reason Comments Established Patient Reason Comments Anxiety Depression Care Teams (unrecognized sec tion and content) Speeder Operator Relationship Specialty Start Date End Date Jonas Sweet MD PCP - General Internal Medicine 06/07/20 Josefina Garcia MD, [address] [place] [address] Physician Radiation Oncology 02/17/23 Speeder Operator Relationship Specialty Start Date End Date Jonas Sweet MD PCP - General Internal Medicine 06/07/20 Speeder Operator Relationship Specialty Start Date End Date Jonas Sweet MD PCP - General Internal Medicine 06/07/20 Josefina Garcia MD, [address] [place] [address] Physician Radiation Oncology 02/17/23 Speeder Operator Relationship Specialty Start Date End Date Jonas Sweet MD PCP - General Internal Medicine 06/07/20 Josefina Garcia MD, [address] [place] [address] Physician Radiation Oncology 02/17/23 Speeder Operator Relationship Specialty Start Date End Date Jonas Sweet MD PCP - General Internal Medicine 06/07/20 Josefina Garcia MD, [address] [place] [address] Physician Radiation Oncology 02/17/23 Speeder Operator Relationship Specialty Start Date End Date Jonas Sweet MD PCP - General Internal Medicine 06/07/20 Josefina Garcia MD, [address] [place] [address] Physician Radiation Oncology 02/17/23 Speeder Operator Relationship Specialty Start Date End Date Jonas Sweet MD PCP - General Internal Medicine 06/07/20 Josefina Garcia MD, [address] [place] [address] Physician Radiation Oncology 02/17/23 Speeder Operator Relationship Specialty Start Date End Date Jonas Sweet MD PCP - General Internal Medicine 06/07/20 Josefina Garcia MD, [address] [place] [address] Physician Radiation Oncology 02/17/23 Speeder Operator Relationship Specialty Start Date End Date Jonas Sweet MD PCP - General Internal Medicine 06/07/20 Josefina Garcia MD, [address] [place] [address] Physician Radiation Oncology 02/17/23 Speeder Operator Relationship Specialty Start Date End Date Jonas Sweet MD PCP - General Internal Medicine 06/07/20 Josefina Garcia MD, [address] [place] [address] Physician Radiation Oncology 02/17/23 Speeder Operator Relationship Specialty Start Date End Date Jonas Sweet MD PCP - General Internal Medicine 06/07/20 Josefina Garcia MD, [address] [place] [address] Physician Radiation Oncology 02/17/23 Speeder Operator Relationship Specialty Start Date End Date Jonas Sweet MD PCP - General Internal Medicine 06/07/20 Josefina Garcia MD, [address] [place] [address] Physician Radiation Oncology 02/17/23 Speeder Operator Relationship Specialty Start Date End Date Jonas Sweet MD PCP - General Internal Medicine 06/07/20 Josefina Garcia MD, [address] [place] [address] Physician Radiation Oncology 02/17/23 Speeder Operator Relationship Specialty Start Date End Date Jonas Sweet MD PCP - General Internal Medicine 06/07/20 Josefina Garcia MD, [address] [place] [address] Physician Radiation Oncology 02/17/23 Speeder Operator Relationship Specialty Start Date End Date Jonas Sweet MD PCP - General Internal Medicine 06/07/20 Josefina Garcia MD, [address] [place] [address] Physician Radiation Oncology 02/17/23 Speeder Operator Relationship Specialty Start Date End Date Jonas Sweet MD PCP - General Internal Medicine 06/07/20 Josefina Garcia MD, [address] [place] [address] Physician Radiation Oncology 02/17/23 Speeder Operator Relationship Specialty Start Date End Date Jonas Sweet MD PCP - General Internal Medicine 06/07/20 Josefina Garcia MD, [address] [place] [address] Physician Radiation Oncology 02/17/23 Speeder Operator Relationship Specialty Start Date End Date Jonas Sweet MD PCP - General Internal Medicine 06/07/20 Josefina Garcia MD, [address] [place] [address] Physician Radiation Oncology 02/17/23 Speeder Operator Relationship Specialty Start Date End Date Jonas Sweet MD PCP - General Internal Medicine 06/07/20 Josefina Garcia MD, [address] [place] [address] Physician Radiation Oncology 02/17/23 Speeder Operator Relationship Specialty Start Date End Date Jonas Sweet MD PCP - General Internal Medicine 06/07/20 Josefina Garcia MD, [address] [place] [address] Physician Radiation Oncology 02/17/23 Speeder Operator Relationship Specialty Start Date End Date Jonas Sweet MD PCP - General Internal Medicine 06/07/20 Josefina Garcia MD, [address] [place] [address] Physician Radiation Oncology 02/17/23 Speeder Operator Relationship Specialty Start Date End Date Jonas Sweet MD PCP - General Internal Medicine 06/07/20 Josefina Garcia MD, [address] [place] [address] Physician Radiation Oncology 02/17/23 Speeder Operator Relationship Specialty Start Date End Date Jonas Sweet MD PCP - General Internal Medicine 06/07/20 Josefina Garcia MD, [address] [place] [address] Physician Radiation Oncology 02/17/23 Speeder Operator Relationship Specialty Start Date End Date Jonas Sweet MD PCP - General Internal Medicine 06/07/20 Josefina Garcia MD, [address] [place] [address] Physician Radiation Oncology 02/17/23 Speeder Operator Relationship Specialty Start Date End Date Jonas Sweet MD PCP - General Internal Medicine 06/07/20 Josefina Garcia MD, [address] [place] [address] Physician Radiation Oncology 02/17/23 Speeder Operator Relationship Specialty Start Date End Date Jonas Sweet MD PCP - General Internal Medicine 06/07/20 Josefina Garcia MD, [address] [place] [address] Physician Radiation Oncology 02/17/23 Speeder Operator Relationship Specialty Start Date End Date Jonas Sweet MD PCP - General Internal Medicine 06/07/20 Josefina Garcia MD, [address] [place] [address] Physician Radiation Oncology 02/17/23 Speeder Operator Relationship Specialty Start Date End Date Jonas Sweet MD PCP - General Internal Medicine 06/07/20 Josefina Garcia MD, [address] [place] [address] Physician Radiation Oncology 02/17/23 Speeder Operator Relationship Specialty Start Date End Date Jonas Sweet MD PCP - General Internal Medicine 06/07/20 Josefina Garcia MD, [address] [place] [address] Physician Radiation Oncology 02/17/23 Speeder Operator Relationship Specialty Start Date End Date Jonas Sweet MD PCP - General Internal Medicine 06/07/20 Josefina Garcia MD, [address] [place] [address] Physician Radiation Oncology 02/17/23 Speeder Operator Relationship Specialty Start Date End Date Jonas Sweet MD PCP - General Internal Medicine 06/07/20 Josefina Garcia MD, [address] [place] [id number] Physician Radiation Oncology 02/17/23 Speeder Operator Relationship Specialty Start Date End Date Jonas Sweet MD PCP - General Internal Medicine 06/07/20 Josefina Garcia MD, [address] [place] [address] Physician Radiation Oncology 02/17/23 Speeder Operator Relationship Specialty Start Date End Date Jonas Sweet MD PCP - General Internal Medicine 06/07/20 Josefina Garcia MD, [email or web address] [facility] [place] [address] Physician Radiation Oncology 02/17/23 Speeder Operator Relationship Specialty Start Date End Date Jonas Sweet MD PCP - General Internal Medicine 06/07/20 Josefina Garcia MD, [address] [email or web address] [address] Physician Radiation Oncology 02/17/23 Speeder Operator Relationship Specialty Start Date End Date Jonas Sweet MD PCP - General Internal Medicine 06/07/20 Speeder Operator Relationship Specialty Start Date End Date Jonas Sweet MD PCP - General Internal Medicine 06/07/20 Speeder Operator Relationship Specialty Start Date End Date Jonas Sweet MD PCP - General Internal Medicine 06/07/20 Josefina Garcia MD, [address] [facility] [place] [address] Physician Radiation Oncology 02/17/23 Speeder Operator Relationship Specialty Start Date End Date Jonas Sweet MD PCP - General Internal Medicine 06/07/20 Josefina Garcia MD, [address] [place] [address] Physician Radiation Oncology 02/17/23 Speeder Operator Relationship Specialty Start Date End Date Jonas Sweet MD PCP - General Internal Medicine 06/07/20 Josefina Garcia MD, [address] [place] [address] Physician Radiation Oncology 02/17/23 Speeder Operator Relationship Specialty Start Date End Date Jonas Sweet MD PCP - General Internal Medicine 06/07/20 Josefina Garcia MD, [address] [place] [address] Physician Radiation Oncology 02/17/23 Speeder Operator Relationship Specialty Start Date End Date Jonas Sweet MD PCP - General Internal Medicine 06/07/20 Josefina Garcia MD, [address] [place] [address] Physician Radiation Oncology 02/17/23 Speeder Operator Relationship Specialty Start Date End Date Jonas Sweet MD PCP - General Internal Medicine 06/07/20 Josefina Garcia MD, [address] [place] [address] Physician Radiation Oncology 02/17/23 Speeder Operator Relationship Specialty Start Date End Date Jonas Sweet MD PCP - General Internal Medicine 06/07/20 Josefina Garcia MD, [address] [place] [address] Physician Radiation Oncology 02/17/23 FOR RECORDS PERTAINING TO PATIENTS WHO ARE OR HAVE BEEN ENROLLED IN A CHEMICAL DEPENDENCY/SUBSTANCEABUSE PROGRAM, SOME INFORMATION MAY BE OMITTED. This clinical summary was aggregated from multiple sources. Caution should be exercised in using it in the provision of clinical care. This summary normalizes information from multiple sources, and as a consequence, information in this document may materially change the coding, format and clinical context of patient data. In addition, data may be omitted in some cases. CLINICAL DECISIONS SHOULD BE BASED ON THE PRIMARY CLINICAL RECORDS. [facility]. provides no warranty or guarantee of the accuracy or completeness of information in this document.
[2023-09-12 12:32] LABS: Absolute Lymphocyte Count 1.12 X10^3/uL (0.83-4.51); Absolute Neutrophil Count 5.8 X10^3/uL (2.0-7.7); Basophil# 0.05 X10^3/uL; Basophil% 0.7 % (0-1); Eosinophil# 0.12 X10^3/uL; Eosinophils% 1.6 % (0-5); Hematocrit 40.9 % (37-47); Hemoglobin 13.6 g/dL (12.0-15.0); Lymphocyte # 1.12 X10^3/ul (0.83-4.51); Lymphocyte % 14.8 % (19-41); Mean Corp Hgb Conc 33.3 g/dL (32-36); Mean Corpuscular Hgb 30.9 pg (27.0-32.0); Mean Platelet Vol. 10.8 fl (6.2-12.0); Monocyte# 0.49 X10^3/uL; Monocyte% 6.5 % (0-10); NRBC Flagged by Analyzer 0 % (0-5); Neutrophil # 5.75 X10^3/uL (2.7-7.7); Neutrophil % 75.6 % (47-70); Platelet Count 275 K/mm3 (150-450); RBC Distribution Width CV 13.5 % (11.6-14.6); RBC Distribution Width SD 45.6 fl (35.1-43.9); White Blood Count 7.6 K/mm3 (4.4-11.0)
[2023-09-12 12:55] LABS: ALB/GLOB Ratio 0.8 RATIO (0.9-2.4); AST(SGOT) 14 U/L (15-37); Alanine Aminotransfer ALT/SGPT 25 U/L (13-56); Albumin, Serum 3.4 g/dL (3.2-5.0); Alkaline Phosphatase 61 U/L (45-117); Anion Gap 4 (5-15); BUN 12 mg/dL (7-18); BUN/Creat Ratio 12.3 RATIO (10-20); Calcium,Total 8.9 mg/dL (8.5-10.1); Chloride 107 mmol/L (98-107); Cholesterol 160 mg/dL (200); Creatinine, Serum 0.97 mg/dL (0.55-1.02); EST Glomerular Filtration Rate 68 mL/min (>60); Est Glom Filt Rate - Afr Amer 82 mL/min (>60); Globulin 4.4 g/dL (2.2-4.2); Glucose 123 mg/dL (74-106); High Density Lipoprotein 36 mg/dL; Potassium 4.5 mmol/L (3.5-5.1); Protein, Total 7.8 g/dL (6.4-8.2); Sodium Level 139 mmol/L (136-145); Triglycerides 252 mg/dL; Very Low Density Lipoprotein 50 mg/dL (5-40)
[2023-09-12 13:22] LABS: Microalbumin:Creatinine Ratio 173.1 mg/g CRE (<30 mg/g CRE)
== END | disposition home or self-care (01) ==
LOC: BIMLAB 09:49
PROVIDERS: PCP Internal Medicine; Referring Provider Internal Medicine; Visit Provider Internal Medicine
DX: E11.9 Type 2 diabetes mellitus without complications (principal); E03.9 Hypothyroidism, unspecified
CPT/HCPCS: 36415; 80053; 80061; 82043; 82570; 84443; 85025

== ENCOUNTER → 2023-12-19 | Outpatient (CLI) | payer BC, SELFPAY ==
[2023-12-19 16:24] LABS: Absolute Lymphocyte Count 1.21 X10^3/uL (0.83-4.51); Absolute Neutrophil Count 4.7 X10^3/uL (2.0-7.7); Basophil# 0.09 X10^3/uL; Basophil% 1.3 % (0-1); Eosinophil# 0.25 X10^3/uL; Eosinophils% 3.7 % (0-5); Hematocrit 39.2 % (37-47); Lymphocyte # 1.21 X10^3/ul (0.83-4.51); Lymphocyte % 17.7 % (19-41); Mean Corp Hgb Conc 33.2 g/dL (32-36); Mean Corpuscular Hgb 30.6 pg (27.0-32.0); Mean Corpuscular Volume 92.2 fL (81-99); Mean Platelet Vol. 10.5 fl (6.2-12.0); Monocyte# 0.53 X10^3/uL; Monocyte% 7.8 % (0-10); NRBC Flagged by Analyzer 0 % (0-5); Neutrophil # 4.67 X10^3/uL (2.7-7.7); Neutrophil % 68.3 % (47-70); Platelet Count 255 K/mm3 (150-450); RBC Distribution Width CV 13.1 % (11.6-14.6); RBC Distribution Width SD 43.6 fl (35.1-43.9); Red Blood Count 4.25 M/mm3 (4.2-5.4); White Blood Count 6.8 K/mm3 (4.4-11.0)
[2023-12-19 16:50] LABS: ALB/GLOB Ratio 0.7 RATIO (0.9-2.4); AST(SGOT) 24 U/L (15-37); Alanine Aminotransfer ALT/SGPT 30 U/L (13-56); Albumin, Serum 3.3 g/dL (3.2-5.0); Alkaline Phosphatase 58 U/L (45-117); Anion Gap 6 (5-15); BUN 12 mg/dL (7-18); BUN/Creat Ratio 12.1 RATIO (10-20); Calcium,Total 8.8 mg/dL (8.5-10.1); Chloride 105 mmol/L (98-107); EST Glomerular Filtration Rate 66 mL/min (>60); Est Glom Filt Rate - Afr Amer 80 mL/min (>60); Globulin 4.5 g/dL (2.2-4.2); Glucose 143 mg/dL (74-106); Protein, Total 7.8 g/dL (6.4-8.2); Sodium Level 137 mmol/L (136-145); Thyroid Stim Hormone (TSH) 2.77 uIU/mL (0.358-3.74)
[2023-12-19 17:11] LABS: Vitamin B12 542 pg/mL (211-911); Vitamin D,25 Hydroxy 25.2 ng/mL
[2023-12-19 17:23] LABS: International Normalized Ratio 4.5
== END | disposition home or self-care (01) ==
LOC: BIMLAB 15:37
PROVIDERS: PCP Internal Medicine; Referring Provider Internal Medicine; Visit Provider Internal Medicine
DX: Z13.21 Encounter for screening for nutritional disorder (principal); E11.9 Type 2 diabetes mellitus without complications; Z79.01 Long term (current) use of anticoagulants; E03.9 Hypothyroidism, unspecified
CPT/HCPCS: 36415; 80053; 82306; 82607; 84443; 85025; 85610

== ENCOUNTER → 2024-05-05 | Outpatient (CLI) | payer BC, SELFPAY ==
[2024-05-05 16:48] LABS: Anion Gap 5 (5-15); BUN 16 mg/dL (7-18); Calcium,Total 8.9 mg/dL (8.5-10.1); Chloride 103 mmol/L (98-107); Creatinine, Serum 1.07 mg/dL (0.55-1.02); EST Glomerular Filtration Rate 61 mL/min (>60); Est Glom Filt Rate - Afr Amer 73 mL/min (>60); Glucose 216 mg/dL (74-106); Potassium 4.1 mmol/L (3.5-5.1); Sodium Level 136 mmol/L (136-145)
== END | disposition home or self-care (01) ==
LOC: BIMLAB 14:24
PROVIDERS: PCP Internal Medicine; Referring Provider Internal Medicine; Visit Provider Internal Medicine
DX: E78.2 Mixed hyperlipidemia (principal)
CPT/HCPCS: 36415; 80048

== ENCOUNTER → 2024-07-28 | Outpatient (CLI) | payer BC, OTHER, SELFPAY ==
[2024-07-28 17:26] LABS: Cholesterol 191 mg/dL (200); High Density Lipoprotein 39 mg/dL; Triglycerides 301 mg/dL; Very Low Density Lipoprotein 60 mg/dL (5-40)
== END | disposition home or self-care (01) ==
LOC: BIMLAB 15:18
PROVIDERS: PCP Internal Medicine; Referring Provider Internal Medicine; Visit Provider Internal Medicine
DX: E03.9 Hypothyroidism, unspecified (principal)
CPT/HCPCS: 36415; 80061; 84443

== ENCOUNTER → 2024-08-25 | Outpatient (CLI) | payer OTHER, BC, SELFPAY ==
--- NOTE | 2024-08-25 11:30 | LES_PTH ---
PATIENT: LISA GUTIERREZ LOC: [facility]#:[id number] AGE/SX: 38/F ROOM: RE08/25/[address]: Dr. Han Fitch MD : 1985 BED: DIS: 08/25/2024 SPEC #: [id number] RECD: 08/25/24 16:05 STATUS: DOE SPENCERKwaku #: [id number] DIPTI: 08/25/24 11:[address]: Han Fitch DEPT: SURGICAL PATHOLOGY RECD BY: Lizette Colby ENTERED: 08/26/24 12:00 SP TYPE: Lesion OTHR DR: Dr. 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 SJ.mr 08/27/2024 MICROSCOPIC DESCRIPTION Slides are reviewed. GROSS DESCRIPTION Received in fixative is one container labeled with the patient's name and designated Left lower lid. The specimen consists of a piece of wheeler-brown skin measuring 0.4 x 0.4 x 0.1cm. The entire specimen is submitted in one cassette. JOYCE. 08/26/2024 TC:5 CPT:14402
== END | disposition home or self-care (01) ==
LOC: LABSPEC 16:05
PROVIDERS: PCP Internal Medicine; Visit Provider Ophthalmology
DX: H02.825 Cysts of left lower eyelid (principal)
CPT/HCPCS: 88305

== ENCOUNTER → 2024-12-27 | Outpatient (CLI) | payer OTHER, SELFPAY ==
--- NOTE | 2024-12-27 16:25 | RAD_ITS ---
PROCEDURE: CHEST PA AND LATERAL 12/27/2024 REASON FOR EXAM: COUGH TECHNIQUE: Frontal and lateral views of the chest. COMPARISON: None FINDINGS: The lungs are expanded. Minimal haziness is seen projecting over the right lower lobe possibly early pneumonic infiltrates. There is no demonstrated pleural abnormality. Normal heart and pericardium. Median sternotomy wires are seen. Normal mediastinum and alvin. Normal visualized pulmonary arteries. Normal visualized aortic arch and descending thoracic aorta. Normal visualized thoracic spine. Normal visualized ribs, clavicles, and shoulders. There is no demonstrated abnormality of the visualized soft tissue structures of the upper abdomen. RAD/Chest PA and Lateral IMPRESSION: Normal x-ray examination of the chest. IMPRESSION: Status post median sternotomy. Possible early pneumonic infiltrates involving the right lower lobe. Reading [facility]
== END | disposition home or self-care (01) ==
LOC: RAD 16:16
PROVIDERS: PCP Internal Medicine; Referring Provider Internal Medicine; Visit Provider Internal Medicine
DX: R05.3 Chronic cough (principal)
CPT/HCPCS: 71046

== ENCOUNTER → 2025-06-21 | Outpatient (CLI) | payer OTHER, SELFPAY ==
[2025-06-21 16:49] LABS: Hematocrit 36.7 % (37-47); Hemoglobin 12.7 g/dL (12.0-15.0); Immature Granulocytes Count 0.040 X10^3/uL (0.0-0.0); Mean Corp Hgb Conc 34.6 g/dL (32-36); Mean Corpuscular Volume 87.0 fL (81-99); Mean Platelet Vol. 10.6 fl (6.2-12.0); NRBC Flagged by Analyzer 0 % (0-5); Platelet Count 287 K/mm3 (150-450); RBC Distribution Width CV 13.4 % (11.6-14.6); RBC Distribution Width SD 42.2 fl (35.1-43.9); Red Blood Count 4.22 M/mm3 (4.2-5.4); White Blood Count 7.6 K/mm3 (4.4-11.0)
[2025-06-21 17:29] LABS: AST(SGOT) 23 U/L (<=31); Alanine Aminotransfer ALT/SGPT 18 U/L (<=34); Albumin, Serum 4.0 g/dL (3.5-5.0); Alkaline Phosphatase 65 U/L (35-104); Anion Gap 11 (5-15); BUN 17 mg/dL (4-19); BUN/Creat Ratio 15.4 RATIO (10-20); Calcium,Total 9.5 mg/dL (7.6-11.0); Carbon Dioxide 23.2 mmol/L (21.0-32.0); Chloride 102 mmol/L (98-108); Cholesterol 161 mg/dL (<=200); Globulin 3.8 g/dL (2.2-4.2); Glucose 145 mg/dL (70-99); Low Density Lipoprotein Calc. 65 mg/dL; Potassium 4.1 mmol/L (3.3-5.1); Triglycerides 321 mg/dL; Very Low Density Lipoprotein 64 mg/dL (5-40); cholesterol:hdl ratio screen 5.03
== END | disposition home or self-care (01) ==
LOC: LAB 16:13
PROVIDERS: PCP Internal Medicine; Referring Provider Internal Medicine; Visit Provider Internal Medicine
DX: E11.69 Type 2 diabetes mellitus with other specified complication (principal); Z79.4 Long term (current) use of insulin; I10 Essential (primary) hypertension; E03.9 Hypothyroidism, unspecified; E78.2 Mixed hyperlipidemia
CPT/HCPCS: 36415; 80053; 80061; 84443; 85025